=== PATIENT | female | born 1980 | race Caucasian/White ===

== ENCOUNTER 2021-06-26 15:15 | Inpatient (IN) | payer MEDICAID, SELFPAY ==
--- NOTE | 2021-06-26 15:25 | CT_ITS ---
WS: [id number] CT ABDOMEN PELVIS TECHNIQUE: Contrast-enhanced CT of the abdomen and pelvis with coronal and sagittal reformatted image s. CLINICAL INFORMATION: eval pelvic infection COMPARISON: CT May 22, 2018 DLP: 615.[address] scans at [facility] use at least one of these dose optimization techniques: automated e xposure control; mA and/or kV adjustment per patient size (includes targeted exams where dose is matc hed to clinical indication); or iterative reconstruction. FINDINGS: Diffuse fatty infiltration of the liver. Prior cholecystectomy. Normal portal vein and splenic vein. Normal pancreatic parenchymal enhancement. Normal spleen. Normal GE junction. Small amount of subpleu ral nodularity in the lower lobes bilaterally. Adrenal glands are normal. Normal renal parenchymal en hancement. Renal parenchymal scarring. No hydronephrosis. Aortic calcification. Urine distended bladder. Tubal ligation clips. Normal sigmoid colon. No evidence of high-grade small or large bowel obstruction. Chronic bilateral spondylolysis L5-S1. No significant anterolisthesis. CT/CT abdomen pelvis w con* [id number] IMPRESSION: 1. Prior postoperative changes cholecystectomy. 2. No hydronephrosis in either kidney. Bilateral renal parenchymal scarring. 3. Urine distended bladder. 4. Prior tubal ligation clips. 5. Normal sigmoid colon. 6. Slight micronodularity in the lower lobes laterally likely inflammatory. 7. No acute abdominal or pelvic findings.
[2021-06-26 15:28] VITALS: BP 132/99; PULSE 128; RESP 17; TEMP 36.5; O2SAT 93; BMI 12.0
[2021-06-26 15:35] LABS: Glucose Point of Care > 600 mg/dL (70-110)
[2021-06-26] MEDS: iohexol 300 mg/mL 100 mL Btl IV (15:58)
[2021-06-26] MEDS: lactated ringers 1,000 ML 999 ML IV ×3 (16:42→18:04)
[2021-06-26] MEDS: phosphorus 250 mg Tablet PO ×2 (16:43)
[2021-06-26 16:50] LABS: ABG PCO2 44.8 mmHg (35-45); ABG PH Result 7.41 (7.35-7.45); Alveolar-Arterial Oxygen Gradi 4.1 mmHg (5-10); Arterial Blood Gas Hematocrit 55.1 % (37-47); Base Excess ABG 3.1 mmol/L (-2.0-2.0); Blood Gas Operator Identificat ED; Blood Gas Sample Site Brachial, right; Blood Gas Sample Type Arterial; Carboxyhemoglobin 8.8 %THgb (0.4-20.1); HCO3 ABG 28.5 mmol/L (22-26); HGB O2 Sat 85.8 % (95-100); Ionized Calcium Level - ABG 1.2 mmol/L (1.1-1.4); Methemoglobin 0.5 % (0.4-1.5); Oxygen Device ROOM AIR; Oxygen Saturation ABG 94.6; PO2 ABG 62.2 mmHg (80.0-100.0); Potassium Level - ABG 4.1 mmol/L (3.5-5.0)
[2021-06-26 17:12] LABS: Basophils # 0.2 10^3/uL (0.0-0.1); Basophils % 1.1 %; Eosinophils % 0.2 %; Hematocrit 55.1 % (37.0-47.0); Hemoglobin 18.6 g/dL (11.5-15.3); Lymphocytes # 2.1 10^3/uL (0.8-4.8); Lymphocytes % 14.7 %; Mean Corpuscular HGB Conc 33.8 g/dL (30.0-36.0); Mean Corpuscular Hemoglobin 28.4 pg (28.0-34.0); Mean Corpuscular Volume 84.3 fl (81-99); Mean Platelet Volume 10.5 fL (7.4-10.4); Monocytes # 0.8 10^3/uL (0.2-0.9); Monocytes % 5.5 %; Neutrophils # 11.13 10^3/uL (1.8-7.7); Neutrophils % 77.9 %; Nucleated Red Blood Cells % 0 %; Platelet Count 248 10^3/cmm (130-400); Red Blood Count 6.54 10^6/uL (4.1-5.3); Red Cell Distribution Width 14.6 % (12.1-15.1); White Blood Count 14.3 10^3/uL (4.0-10.0)
[2021-06-26 17:28] LABS: Alanine Aminotransferase 6 U/L (0-33); Albumin Level 2.5 g/dL (3.5-5.2); Alkaline Phosphatase 204 IU/L (35-105); Anion Gap 17.2 (5-19); Aspartate Amino Transferase 7 U/L (0-32); Blood Urea Nitrogen 15 mg/dL (6-20); Calcium 8.2 mg/dL (8.5-10.5); Carbon Dioxide 25 mmol/L (22-29); Chloride 87 mmol/L (98-107); Glomerular Filtration Rate 79.4 mL/min (90-130); Magnesium 1.8 mg/dL (1.7-2.3); Osmolality Calculated 287 mOsm/kg (285-295); Phosphorus 3.1 mg/dL (2.5-4.5); Potassium 4.2 mmol/L (3.5-5.1); Sodium 125 mmol/L (136-145); Total Bilirubin 0.3 mg/dL (0.15-1.2); Total Protein 5.5 g/dL (6.6-8.7)
[2021-06-26 17:31] LABS: Glucose 577 mg/dL (65-115); HCG, Serum Qual Negative (Negative); Ketone (Acetest) Serum Negative (Negative)
--- NOTE | 2021-06-26 17:46 | XRR_ITS ---
PROCEDURE INFORMATION: Exam: XR Chest Exam date and time: 06/26/2021 5:46 PM Age: 41 years old Clinical indication: Shortness of breath; Additional info: Dyspnea TECHNIQUE: Imaging protocol: XR of the chest. Views: 1 view. COMPARISON: CR Chest 1 [place] [id number] 05/22/2018 5:59 PM FINDINGS: Lungs: The lungs are clear and hyperinflated. Changes of emphysema. No consolidation. Pleural spaces: Unremarkable. No pleural effusion. No pneumothorax. Heart/Mediastinum: Unremarkable. No cardiomegaly. Bones/joints: Unremarkable. XR/XR chest 1V portable [id number] IMPRESSION: No acute findings.
[2021-06-26 17:58] LABS: Glucose Point of Care 404 mg/dL (70-110)
--- NOTE | 2021-06-26 18:40 | XRR_ITS ---
PROCEDURE INFORMATION: Exam: XR Chest Exam date and time: 06/26/2021 6:40 PM Age: 41 years old Clinical indication: Shortness of breath; Additional info: Dyspnea, o2 sats in 50s TECHNIQUE: Imaging protocol: XR of the chest. Views: 1 view. COMPARISON: CR (CHEST, ) 06/26/2021 6:00 PM FINDINGS: Lungs: Changes of emphysema. The lungs remain clear. Pleural spaces: Unremarkable. No pleural effusion. No pneumothorax. Heart/Mediastinum: Unremarkable. No cardiomegaly. Bones/joints: Unremarkable. XR/XR chest 1V portable [id number] IMPRESSION: No acute findings.
--- NOTE | 2021-06-26 18:59 | ED_ITS ---
HPI - General Adult General: Chief complaint: ER Hold Stated complaint: DEHYDRATION/ EMACIATION/ HIGH BS Time Seen by Provider: 06/26/21 15:17 History of Present Illness: HPI narrative: Patient is a 41-year-old female with history of depression, type 2 diabetes who presents the emergency room for concerns of dehydration and inability to care for self. Per EMS, patient was found at home with complaints of weakness and unable to get up. Patient has not eaten in the last week. Patient tells me that she is feeling very depressed and does not want to eat. Patient denies any suicidal ideation or homicidal ideation denies any active voices hearing. Patient has also not been taking her insulins. Denies any nausea/vomiting, fever/chills, diarrhea, melena hematochezia, abdominal complaints or complaints at this time Onset: chronic Duration:ongoing Location:home Severity:severe Review of Systems Narrative: Constitutional: No fever, no chills. +thin, cachetic HEENT: No vision changes CV: No chest pain, no palpitations PULM: no cough, no dyspnea. GI: No abdominal pain, no N/V/D. : No dysuria MSKEL: No muscle pain SKIN: No new rashes, no lesions. NEURO: No headache, no focal weakness. HEME: No visible bruises PSYCH: Normal mood PFSH ED PFSH: Medical History (Updated 06/28/21 @ 15:56 by Pacheco Shelley MD) Aftercare following surgery of the genitourinary system Patient is a status post diagnostic laparoscopy with lysis of adhesions and appendectomy 2 weeks ago. No complications. Patient was counseled regarding pathology report showing acute appendicitis. Follow-up in 4 weeks Breast lump on right side at 9 o'clock position C. difficile colitis MRSA (methicillin resistant staph aureus) culture positive Patient denies medical problems Perinephric abscess History of perinephric and retroperitoneal abscess with yeast in 2018, required percutaneous drainage and had complicated hospital course with respiratory failure, gram-negative pneumonia, thoracentesis, BiPAP therapy requirement, intolerance of oral intake, PEG tube placement, intolerance of tube feeds Secondary amenorrhea 39-year-old female with secondary amenorrhea. Progestin challenge test described Patient referred to the progestin challenge test she had a withdrawal bleeding from 05/07/2019 to 05/13/2019. Trichotillomania Surgical History (Updated 06/27/21 @ 02:24 by Olga Wang MD) deliv NOS-unsp 1999 History of cholecystectomy 2011 History of tubal ligation 2000 S/P appendectomy S/P laparoscopy 05/20/2019- Diagnostic Laparoscopy, Lysis of Adhesions performed by Dr. Wendi combs at Appendectomy performed by Dr. Robledo on 05/20/2019 Family History Grandmother Diabetes MATERNAL Cancer paternal Grandfather Heart disease maternal Cancer paternal Family/Other Breast cancer Paternal Aunt Social History Smoking and tobacco status: current every day smoker cigarettes Packs smoked per day: 1 Years cigarettes smoked: 28 Alcohol intake: never Additional social history: Well balanced diet Physical Exam Narrative: EXAM NARRATIVE: Head: Atraumatic Eyes: PERRL, conjunctiva without injection ENT: Mucous membrane dry NECK: Supple, ROM intact LUNGS: LCTAB, no crackles/rhonchi CV: Sinus tachycardia ABDOMEN: Soft, nontender in all quadrants EXTREMITY: Normal ROM SKIN: Sacral decubitus erythema and skin atrophy NEURO: Awake and alert, no focal motor deficits PSYCH: Normal mood and affect Course Vital Signs: Vital signs: Vital Signs Temperature 99.0 F 07/01/21 20:00 Pulse Rate 105 H 07/01/21 20:00 Respiratory Rate 19 H 07/01/21 20:00 Blood Pressure 102/70 07/01/21 20:00 Pulse Oximetry 97 07/01/21 20:00 MDM - General Adult MDM Narrative: Medical decision making narrative: Patient is a 41-year-old female history of type 2 diabetes, depression presenting to the emergency room with no p.o. intake in the last 2 weeks. Patient on exam appears to be dry, noted to be tachycardic to the 120s. Patient received 500 mg of thiamine and 500 mg of phosphorus. Patient received 4 L of LR with significant improvement in symptoms. She is noted to be hemoconcentrated at 18.8. Patient is noted to have decubitus changes in the gluteal areas b/l. CT abdomen pelvis not show any signs of acute abscess or acute pelvic infection. Received 4 L of LR in the emergency room. Shortly after, patient noted to have mild hypoxemia and tachycardia. Patient was observed in the emergency room remains continues to have mild hypoxemia. Decision was made to order CT scan for evaluation of blood clot given chronic immobility. CT negative for any PE. Patient improved without any intervention for the next 2 hours. Patient is now off oxygen. WBC noted to have white count 14.5. Glucose improved while observed in the emergency room. Covid PCR pending. CT is negative for any acute findings. Patient still unable to ambulate and get out of bed. Patient will be admitted to hospital for rehydration. Possible PNA on CTA, treated with ceftriaxone and aizthromycin. Disposition: Admission Lab Data: Labs: Lab Results 08/27/20 08/27/20 08/27/20 16:50 16:50 16:50 WBC RBC Hgb Hct MCV MCH MCHC RDW Plt Count MPV Neut % (Auto) Lymph % (Auto) [place] % (Auto) Eos % (Auto) Baso % (Auto) Neut # (Auto) Lymph # (Auto) [place] # (Auto) Eos # (Auto) Baso # (Auto) Nucleated RBC % (a uto) Nucleated RBCs # Specimen Type Sample Site ABG pH ABG pCO2 ABG pO2 ABG HCO3 ABG O2 Saturation ABG Base Excess Kaushik Test A-a O2 Gradient Hematocrit Hgb O2 Saturation Carboxyhemoglobin Methemoglobin Total Hemoglobin Sodium Potassium Glucose Ionized Calcium O2 Delivery Device FiO2 Grades 1 Through 6 Teacher ID Chloride Carbon Dioxide Anion Gap BUN Creatinine GFR Calculation POC Glucose Estimat Average Gl ucose Hemoglobin A1c Calculated Osmolal ity Calcium Phosphorus Magnesium Total Bilirubin AST ALT Alkaline Phosphata se NT-Pro-B Natriuret Pep Total Protein Albumin Globulin TSH Free T4 HCG, Qual Urine Color Urine Appearance Urine pH Ur Specific Gravit y Urine Protein Urine Glucose (UA) Urine Ketones Urine Blood Urine Nitrate Urine Bilirubin Urine Urobilinogen Ur Leukocyte Sonia ase Urine RBC Urine WBC Ur Squamous Epith Cells Amorphous Sediment Urine Bacteria Fine Granular Cast s Urine Mucus Serum Ketones RPR Cancelled Coronavirus 229E ( PCR) Hepatitis A IgM Ab Cancelled Hep Bs Antigen Cancelled Hep Bs Antibody Cancelled Hep B Core Total A b Cancelled Hepatitis C Antibo dy Cancelled HIV 1&2 Ab & HIV 1 Ag Cancelled HIV 1&2 Antibody Cancelled SARS-CoV-2 (PCR) 06/26/21 06/26/21 06/26/21 03:50 15:33 16:40 WBC RBC Hgb Hct MCV MCH MCHC RDW Plt Count MPV Neut % (Auto) Lymph % (Auto) [place] % (Auto) Eos % (Auto) Baso % (Auto) Neut # (Auto) Lymph # (Auto) [place] # (Auto) Eos # (Auto) Baso # (Auto) Nucleated RBC % (a uto) Nucleated RBCs # Specimen Type Arterial Sample Site Brachial, right ABG pH 7.41 (7.35-7.45) ABG pCO2 44.8 mmHg mmHg (35-45) ABG pO2 62.2 mmHg L mmHg (80.0-100.0) ABG HCO3 28.5 mmol/L H mmo l/L (22-26) ABG O2 Saturation 94.6 ABG Base Excess 3.1 mmol/L H mmol /L (-2.0-2.0) Kaushik Test N/a A-a O2 Gradient 4.1 mmHg L mmHg (5-10) Hematocrit 55.1 % H % (37-47) Hgb O2 Saturation 85.8 % L % (95-100) Carboxyhemoglobin 8.8 %THgb %THgb (0.4-20.1) Methemoglobin 0.5 % % (0.4-1.5) Total Hemoglobin 18.0 g/dL H g/dL (12-16) Sodium 125.0 mmol/L L mm ol/L (131-143) Potassium 4.1 mmol/L mmol/L (3.5-5.0) Glucose 523.0 mg/dL H mg/ dL (70-115) Ionized Calcium 1.2 mmol/L mmol/L (1.1-1.4) O2 Delivery Device Room air FiO2 21.0 % % Grades 1 Through 6 Teacher ID Ed Chloride Carbon Dioxide Anion Gap BUN Creatinine GFR Calculation POC Glucose > 600 mg/dL H* mg /dL (70-110) Estimat Average Gl ucose Hemoglobin A1c Calculated Osmolal ity Calcium Phosphorus Magnesium Total Bilirubin AST ALT Alkaline Phosphata se NT-Pro-B Natriuret Pep Total Protein Albumin Globulin TSH Free T4 HCG, Qual Urine Color Yellow (Yellow) Urine Appearance Clear (CLEAR) Urine pH 5 (5-7) Ur Specific Gravit y 1.005 (1.005-1.030) Urine Protein 2+ H (Negative) Urine Glucose (UA) 4+ H (Normal) Urine Ketones Negative (Negative) Urine Blood Neg (Negative) Urine Nitrate Negative (Negative) Urine Bilirubin Neg (Negative) Urine Urobilinogen Neg mg/dL mg/dL (Negative) Ur Leukocyte Sonia ase Negative (Negative) Urine RBC 0-4 /hpf H /hpf (0-2) Urine WBC Rare /hpf /hpf (0-5) Ur Squamous Epith Cells Rare /hpf /hpf (0-5) Amorphous Sediment Not Reportable Urine Bacteria None /hpf /hpf (NONE) Fine Granular Cast s 0-4 /lpf H /lpf Urine Mucus Trace /hpf /hpf Serum Ketones RPR Coronavirus 229E ( PCR) Hepatitis A IgM Ab Hep Bs Antigen Hep Bs Antibody Hep B Core Total A b Hepatitis C Antibo dy HIV 1&2 Ab & HIV 1 Ag HIV 1&2 Antibody SARS-CoV-2 (PCR) 06/26/21 06/26/21 06/26/21 16:50 16:50 16:50 WBC 14.3 10^3/uL H 10 ^3/uL (4.0-10.0) RBC 6.54 10^6/uL H 10 ^6/uL (4.1-5.3) Hgb 18.6 g/dL H g/dL (11.5-15.3) Hct 55.1 % H % (37.0-47.0) MCV 84.3 fl fl (81-99) MCH 28.4 pg pg (28.0-34.0) MCHC 33.8 g/dL g/dL (30.0-36.0) RDW 14.6 % % (12.1-15.1) Plt Count 248 10^3/cmm 10^3 /cmm (130-400) MPV 10.5 fL H fL (7.4-10.4) Neut % (Auto) 77.9 % % Lymph % (Auto) 14.7 % % [place] % (Auto) 5.5 % % Eos % (Auto) 0.2 % % Baso % (Auto) 1.1 % % Neut # (Auto) 11.13 10^3/uL H 1 0^3/uL (1.8-7.7) Lymph # (Auto) 2.1 10^3/uL 10^3/ uL (0.8-4.8) [place] # (Auto) 0.8 10^3/uL 10^3/ uL (0.2-0.9) Eos # (Auto) 0.0 10^3/uL 10^3/ uL (0.0-0.8) Baso # (Auto) 0.2 10^3/uL H 10^ 3/uL (0.0-0.1) Nucleated RBC % (a uto) 0 % % Nucleated RBCs # 0.0 /100WBC /100W BC Specimen Type Sample Site ABG pH ABG pCO2 ABG pO2 ABG HCO3 ABG O2 Saturation ABG Base Excess Kaushik Test A-a O2 Gradient Hematocrit Hgb O2 Saturation Carboxyhemoglobin Methemoglobin Total Hemoglobin Sodium 125 mmol/L L mmol /L (136-145) Potassium 4.2 mmol/L mmol/L (3.5-5.1) Glucose 577 mg/dL H* mg/d L (65-115) Ionized Calcium O2 Delivery Device FiO2 Grades 1 Through 6 Teacher ID Chloride 87 mmol/L L mmol/ L (98-107) Carbon Dioxide 25 mmol/L mmol/L (22-29) Anion Gap 17.2 (5-19) BUN 15 mg/dL mg/dL (6-20) Creatinine 0.8 mg/dL mg/dL (0.5-0.9) GFR Calculation 79.4 mL/min L mL/ min (90-130) POC Glucose Estimat Average Gl ucose Hemoglobin A1c Calculated Osmolal ity 287 mOsm/kg mOsm/ kg (285-295) Calcium 8.2 mg/dL L mg/dL (8.5-10.5) Phosphorus 3.1 mg/dL mg/dL (2.5-4.5) Magnesium 1.8 mg/dL mg/dL (1.7-2.3) Total Bilirubin 0.3 mg/dL mg/dL (0.15-1.2) AST 7 U/L U/L (0-32) ALT 6 U/L U/L (0-33) Alkaline Phosphata se 204 IU/L H IU/L (35-105) NT-Pro-B Natriuret Pep Total Protein 5.5 g/dL L g/dL (6.6-8.7) Albumin 2.5 g/dL L g/dL (3.5-5.2) Globulin 3.0 g/dL g/dL (1.3-4.6) TSH Free T4 HCG, Qual Urine Color Urine Appearance Urine pH Ur Specific Gravit y Urine Protein Urine Glucose (UA) Urine Ketones Urine Blood Urine Nitrate Urine Bilirubin Urine Urobilinogen Ur Leukocyte Sonia ase Urine RBC Urine WBC Ur Squamous Epith Cells Amorphous Sediment Urine Bacteria Fine Granular Cast s Urine Mucus Serum Ketones Negative (Negative) RPR Coronavirus 229E ( PCR) Hepatitis A IgM Ab Hep Bs Antigen Hep Bs Antibody Hep B Core Total A b Hepatitis C Antibo dy HIV 1&2 Ab & HIV 1 Ag HIV 1&2 Antibody SARS-CoV-2 (PCR) 06/26/21 06/26/21 06/26/21 16:50 16:50 16:50 WBC RBC Hgb Hct MCV MCH MCHC RDW Plt Count MPV Neut % (Auto) Lymph % (Auto) [place] % (Auto) Eos % (Auto) Baso % (Auto) Neut # (Auto) Lymph # (Auto) [place] # (Auto) Eos # (Auto) Baso # (Auto) Nucleated RBC % (a uto) Nucleated RBCs # Specimen Type Sample Site ABG pH ABG pCO2 ABG pO2 ABG HCO3 ABG O2 Saturation ABG Base Excess Kaushik Test A-a O2 Gradient Hematocrit Hgb O2 Saturation Carboxyhemoglobin Methemoglobin Total Hemoglobin Sodium Potassium Glucose Ionized Calcium O2 Delivery Device FiO2 Grades 1 Through 6 Teacher ID Chloride Carbon Dioxide Anion Gap BUN Creatinine GFR Calculation POC Glucose Estimat Average Gl ucose Hemoglobin A1c Calculated Osmolal ity Calcium Phosphorus Magnesium Total Bilirubin AST ALT Alkaline Phosphata se NT-Pro-B Natriuret Pep 2834 pg/mL H pg/m L (0-125) Total Protein Albumin Globulin TSH 1.84 uIU/mL uIU/m L (0.27-4.20) Free T4 1.17 ng/dL ng/dL (0.82-1.77) HCG, Qual Negative (Negative) Urine Color Urine Appearance Urine pH Ur Specific Gravit y Urine Protein Urine Glucose (UA) Urine Ketones Urine Blood Urine Nitrate Urine Bilirubin Urine Urobilinogen Ur Leukocyte Sonia ase Urine RBC Urine WBC Ur Squamous Epith Cells Amorphous Sediment Urine Bacteria Fine Granular Cast s Urine Mucus Serum Ketones RPR Coronavirus 229E ( PCR) Hepatitis A IgM Ab Hep Bs Antigen Hep Bs Antibody Hep B Core Total A b Hepatitis C Antibo dy HIV 1&2 Ab & HIV 1 Ag HIV 1&2 Antibody SARS-CoV-2 (PCR) 06/26/21 06/26/21 06/26/21 16:50 16:50 16:50 WBC RBC Hgb Hct MCV MCH MCHC RDW Plt Count MPV Neut % (Auto) Lymph % (Auto) [place] % (Auto) Eos % (Auto) Baso % (Auto) Neut # (Auto) Lymph # (Auto) [place] # (Auto) Eos # (Auto) Baso # (Auto) Nucleated RBC % (a uto) Nucleated RBCs # Specimen Type Sample Site ABG pH ABG pCO2 ABG pO2 ABG HCO3 ABG O2 Saturation ABG Base Excess Kaushik Test A-a O2 Gradient Hematocrit Hgb O2 Saturation Carboxyhemoglobin Methemoglobin Total Hemoglobin Sodium Potassium Glucose Ionized Calcium O2 Delivery Device FiO2 Grades 1 Through 6 Teacher ID Chloride Carbon Dioxide Anion Gap BUN Creatinine GFR Calculation POC Glucose Estimat Average Gl ucose Hemoglobin A1c Calculated Osmolal ity Calcium Phosphorus Magnesium Total Bilirubin AST ALT Alkaline Phosphata se NT-Pro-B Natriuret Pep Total Protein Albumin Globulin TSH Free T4 HCG, Qual Urine Color Urine Appearance Urine pH Ur Specific Gravit y Urine Protein Urine Glucose (UA) Urine Ketones Urine Blood Urine Nitrate Urine Bilirubin Urine Urobilinogen Ur Leukocyte Sonia ase Urine RBC Urine WBC Ur Squamous Epith Cells Amorphous Sediment Urine Bacteria Fine Granular Cast s Urine Mucus Serum Ketones RPR Nonreactive (Nonreactive) Coronavirus 229E ( PCR) Hepatitis A IgM Ab Non-reactive (Nonreactive) Hep Bs Antigen Non-reactive (Nonreactive) Hep Bs Antibody 3.5 L (11.5-1000) Hep B Core Total A b Non-reactive (Nonreactive) Hepatitis C Antibo dy Non-reactive (Nonreactive) HIV 1&2 Ab & HIV 1 Ag Non-reactive (Non-Reactiv) HIV 1&2 Antibody Non-reactive (Non-Reactiv) SARS-CoV-2 (PCR) 06/26/21 06/26/21 06/26/21 17:56 20:01 21:34 WBC 14.5 10^3/uL H 10 ^3/uL (4.0-10.0) RBC 5.82 10^6/uL H 10 ^6/uL (4.1-5.3) Hgb 16.5 g/dL H g/dL (11.5-15.3) Hct 49.3 % H % (37.0-47.0) MCV 84.7 fl fl (81-99) MCH 28.4 pg pg (28.0-34.0) MCHC 33.5 g/dL g/dL (30.0-36.0) RDW 14.6 % % (12.1-15.1) Plt Count 229 10^3/cmm 10^3 /cmm (130-400) MPV 9.8 fL fL (7.4-10.4) Neut % (Auto) 77.4 % % Lymph % (Auto) 17.6 % % [place] % (Auto) 3.8 % % Eos % (Auto) 0.1 % % Baso % (Auto) 0.6 % % Neut # (Auto) 11.19 10^3/uL H 1 0^3/uL (1.8-7.7) Lymph # (Auto) 2.6 10^3/uL 10^3/ uL (0.8-4.8) [place] # (Auto) 0.6 10^3/uL 10^3/ uL (0.2-0.9) Eos # (Auto) 0.0 10^3/uL 10^3/ uL (0.0-0.8) Baso # (Auto) 0.1 10^3/uL 10^3/ uL (0.0-0.1) Nucleated RBC % (a uto) 0 % % Nucleated RBCs # 0.0 /100WBC /100W BC Specimen Type Sample Site ABG pH ABG pCO2 ABG pO2 ABG HCO3 ABG O2 Saturation ABG Base Excess Kaushik Test A-a O2 Gradient Hematocrit Hgb O2 Saturation Carboxyhemoglobin Methemoglobin Total Hemoglobin Sodium Potassium Glucose Ionized Calcium O2 Delivery Device FiO2 Grades 1 Through 6 Teacher ID Chloride Carbon Dioxide Anion Gap BUN Creatinine GFR Calculation POC Glucose 404 mg/dL H mg/dL 387 mg/dL H mg/dL (70-110) (70-110) Estimat Average Gl ucose Hemoglobin A1c Calculated Osmolal ity Calcium Phosphorus Magnesium Total Bilirubin AST ALT Alkaline Phosphata se NT-Pro-B Natriuret Pep Total Protein Albumin Globulin TSH Free T4 HCG, Qual Urine Color Urine Appearance Urine pH Ur Specific Gravit y Urine Protein Urine Glucose (UA) Urine Ketones Urine Blood Urine Nitrate Urine Bilirubin Urine Urobilinogen Ur Leukocyte Sonia ase Urine RBC Urine WBC Ur Squamous Epith Cells Amorphous Sediment Urine Bacteria Fine Granular Cast s Urine Mucus Serum Ketones RPR Coronavirus 229E ( PCR) Hepatitis A IgM Ab Hep Bs Antigen Hep Bs Antibody Hep B Core Total A b Hepatitis C Antibo dy HIV 1&2 Ab & HIV 1 Ag HIV 1&2 Antibody SARS-CoV-2 (PCR) 06/26/21 06/26/21 06/26/21 21:34 21:34 21:55 WBC RBC Hgb Hct MCV MCH MCHC RDW Plt Count MPV Neut % (Auto) Lymph % (Auto) [place] % (Auto) Eos % (Auto) Baso % (Auto) Neut # (Auto) Lymph # (Auto) [place] # (Auto) Eos # (Auto) Baso # (Auto) Nucleated RBC % (a uto) Nucleated RBCs # Specimen Type Sample Site ABG pH ABG pCO2 ABG pO2 ABG HCO3 ABG O2 Saturation ABG Base Excess Kaushik Test A-a O2 Gradient Hematocrit Hgb O2 Saturation Carboxyhemoglobin Methemoglobin Total Hemoglobin Sodium 133 mmol/L L mmol /L (136-145) Potassium 3.4 mmol/L L mmol /L (3.5-5.1) Glucose 226 mg/dL H mg/dL (65-115) Ionized Calcium O2 Delivery Device FiO2 Grades 1 Through 6 Teacher ID Chloride 95 mmol/L L mmol/ L (98-107) Carbon Dioxide 28 mmol/L mmol/L (22-29) Anion Gap 13.4 (5-19) BUN 11 mg/dL mg/dL (6-20) Creatinine 0.6 mg/dL mg/dL (0.5-0.9) GFR Calculation 110.7 mL/min mL/m in (90-130) POC Glucose Estimat Average Gl ucose 510 Hemoglobin A1c 19.4 % H % (4.0-6.0) Calculated Osmolal ity 282 mOsm/kg L mOs m/kg (285-295) Calcium 7.8 mg/dL L mg/dL (8.5-10.5) Phosphorus Magnesium Total Bilirubin AST ALT Alkaline Phosphata se NT-Pro-B Natriuret Pep Total Protein Albumin Globulin TSH Free T4 HCG, Qual Urine Color Urine Appearance Urine pH Ur Specific Gravit y Urine Protein Urine Glucose (UA) Urine Ketones Urine Blood Urine Nitrate Urine Bilirubin Urine Urobilinogen Ur Leukocyte Sonia ase Urine RBC Urine WBC Ur Squamous Epith Cells Amorphous Sediment Urine Bacteria Fine Granular Cast s Urine Mucus Serum Ketones RPR Coronavirus 229E ( PCR) Not detected (NOT DETECT) Hepatitis A IgM Ab Hep Bs Antigen Hep Bs Antibody Hep B Core Total A b Hepatitis C Antibo dy HIV 1&2 Ab & HIV 1 Ag HIV 1&2 Antibody SARS-CoV-2 (PCR) Not detected (NOT DETECT) Imaging Data^: Other Imaging: Radiologist's impression: [id number], [place] [address]QJ Scan ReportSigned Patient: Ralph Ace #: [id number]: [id number]#:[id number]/Sex: 41 / FADM Date: 06/26/21Loc: ERRoom/Bed:Attending Dr: Ordering Provider/Ordering MD: Rochelle Harris MD Date of Service: 06/26/21 Procedure(s): CT angio chest PE protcl [id number] Accession Number(s): [id number] Report Number: [id number] PROCEDURE INFORMATION: Exam: CTA Chest With Contrast Exam date and time: 06/26/2021 7:13 PM Age: 41 years old Clinical indication: Other: Weakness; Prior surgery; Surgery type: Tubal, appy, gb; Additional info: Eval pe TECHNIQUE: Imaging protocol: Computed tomographic angiography of the chest with contrast. 3D rendering (Not supervised by radiologist): MIP and/or 3D reconstructed images were created by the technologist. Radiation optimization: All CT scans at this facility use at least one of these dose optimization techniques: automated exposure control; mA and/or kV adjustment per patient size (includes targeted exams where dose is matched to clinical indication); or iterative reconstruction. Contrast material: OMNI 350; Contrast volume: 65 ml; Contrast route: INTRAVENOUS (IV); COMPARISON: CR (CHEST, ) 06/26/2021 6:45 PM RADIATION DOSE METRICS: Total DLP (mGy-cm): 312.3 FINDINGS: Pulmonary arteries: Normal. No pulmonary emboli. Aorta: Unremarkable. No aortic aneurysm. No aortic dissection. Veins: Retrograde flow of contrast down the inferior vena cava which creates streak artifact through the kidneys. Lungs: Subtle centrilobular opacities diffusely scattered throughout both lungs. Multiple scattered areas of tree-in-bud type opacities in both lungs. Small ground-glass opacities in the lower lobes. Pleural spaces: Unremarkable. No pneumothorax. No pleural effusion. Heart: Unremarkable. No cardiomegaly. No pericardial effusion. Lymph nodes: Unremarkable. No enlarged lymph nodes. Gallbladder and bile ducts: Cholecystectomy. Bones/joints: Mild thoracic curvature. No fracture. Soft tissues: Unremarkable. CT/CT angio chest PE protcl [id number] IMPRESSION: 1. No evidence for pulmonary embolus. 2. Mixed centrilobular ground-glass nodules and tree-in-bud opacities throughout both lungs. If patient is a smoker, this could represent desquamative interstitial pneumonia. Endobronchial infection is also a consideration. Dictated By:Merlin Langston By:Merlin Langston Date/Time:06/26/21/ [address] [id number] ReportSigned Patient: Ralph Ace #: [id number]: [id number]#:[id number]/Sex: 41 / FADM Date: 06/26/21Loc: ERRoom/Bed:Attending Dr: Ordering Provider/Ordering MD: Rochelle Harris MD Date of Service: 06/26/21 Procedure(s): XR chest 1V portable [id number] Accession Number(s): [id number] Report Number: [id number] PROCEDURE INFORMATION: Exam: XR Chest Exam date and time: 06/26/2021 6:40 PM Age: 41 years old Clinical indication: Shortness of breath; Additional info: Dyspnea, o2 sats in 50s TECHNIQUE: Imaging protocol: XR of the chest. Views: 1 view. COMPARISON: CR (CHEST, ) 06/26/2021 6:00 PM FINDINGS: Lungs: Changes of emphysema. The lungs remain clear. Pleural spaces: Unremarkable. No pleural effusion. No pneumothorax. Heart/Mediastinum: Unremarkable. No cardiomegaly. Bones/joints: Unremarkable. XR/XR chest 1V portable [id number] IMPRESSION: No acute findings. Dictated By:Merlin Langston By:Merlin Langston Date/Time:06/26/21D/ 39 Discharge Plan Discharge Patient Disposition: Admitted As Inpatient Admit Provider: Olga Wang Clinical Impression: Dehydration, Generalized weakness, Hyperglycemia, Adult failure to thrive Depression Qualifiers: Depression Type: major depressive disorder Major depression recurrence: recurrent Active/Remission status: currently active Major depression episode severity: severe Psychotic features: without psychotic features Qualified Code(s): F33.2 - Major depressive disorder, recurrent severe without psychotic features Condition: Stable 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 of Care Code 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
--- NOTE | 2021-06-26 19:13 | CTR_ITS ---
PROCEDURE INFORMATION: Exam: CTA Chest With Contrast Exam date and time: 06/26/2021 7:13 PM Age: 41 years old Clinical indication: Other: Weakness; Prior surgery; Surgery type: Tubal, appy, gb; Additional info: Eval pe TECHNIQUE: Imaging protocol: Computed tomographic angiography of the chest with contrast. 3D rendering (Not supervised by radiologist): MIP and/or 3D reconstructed images were created by the technologist. Radiation optimization: All CT scans at this facility use at least one of these dose optimization techniques: automated exposure control; mA and/or kV adjustment per patient size (includes targeted exams where dose is matched to clinical indication); or iterative reconstruction. Contrast material: OMNI 350; Contrast volume: 65 ml; Contrast route: INTRAVENOUS (IV); COMPARISON: CR (CHEST, ) 06/26/2021 6:45 PM RADIATION DOSE METRICS: Total DLP (mGy-cm): 312.3 FINDINGS: Pulmonary arteries: Normal. No pulmonary emboli. Aorta: Unremarkable. No aortic aneurysm. No aortic dissection. Veins: Retrograde flow of contrast down the inferior vena cava which creates streak artifact through the kidneys. Lungs: Subtle centrilobular opacities diffusely scattered throughout both lungs. Multiple scattered areas of tree-in-bud type opacities in both lungs. Small ground-glass opacities in the lower lobes. Pleural spaces: Unremarkable. No pneumothorax. No pleural effusion. Heart: Unremarkable. No cardiomegaly. No pericardial effusion. Lymph nodes: Unremarkable. No enlarged lymph nodes. Gallbladder and bile ducts: Cholecystectomy. Bones/joints: Mild thoracic curvature. No fracture. Soft tissues: Unremarkable. CT/CT angio chest PE protcl [id number] IMPRESSION: 1. No evidence for pulmonary embolus. 2. Mixed centrilobular ground-glass nodules and tree-in-bud opacities throughout both lungs. If patient is a smoker, this could represent desquamative interstitial pneumonia. Endobronchial infection is also a consideration.
[2021-06-26 19:39] LABS: Free T4 Free Thyroxine 1.17 ng/dL (0.82-1.77); Thyroid Stimulating Hormone 1.84 uIU/mL (0.27-4.20)
[2021-06-26 20:05] LABS: Glucose Point of Care 387 mg/dL (70-110)
[2021-06-26] MEDS: FUROsemide 10 mg/mL SDV 4mL 40 MG IVP (20:06)
[2021-06-26] MEDS: metoprolol tartrate 1 mg/1 mL SDV 5 mL 5 MG IVP (20:06)
[2021-06-26] MEDS: insulin lispro 100 unit/1 mL SUBCUT (20:17)
[2021-06-26 20:19] LABS: NT Pro B Type Natriuretic Pept 2834 pg/mL (0-125)
[2021-06-26 20:24] VITALS: BP 120/99; PULSE 126; RESP 16; TEMP 36.7; O2SAT 98
[2021-06-26] MEDS: iohexol 350 mg/mL 100 mL Btl IV (20:47)
[2021-06-26 21:35] VITALS: BP 113/77; PULSE 96; O2SAT 92
[2021-06-26 21:40] LABS: Basophils # 0.1 10^3/uL (0.0-0.1); Basophils % 0.6 %; Eosinophils % 0.1 %; Hematocrit 49.3 % (37.0-47.0); Hemoglobin 16.5 g/dL (11.5-15.3); Lymphocytes # 2.6 10^3/uL (0.8-4.8); Lymphocytes % 17.6 %; Mean Corpuscular HGB Conc 33.5 g/dL (30.0-36.0); Mean Corpuscular Hemoglobin 28.4 pg (28.0-34.0); Mean Corpuscular Volume 84.7 fl (81-99); Mean Platelet Volume 9.8 fL (7.4-10.4); Monocytes # 0.6 10^3/uL (0.2-0.9); Monocytes % 3.8 %; Neutrophils # 11.19 10^3/uL (1.8-7.7); Neutrophils % 77.4 %; Nucleated Red Blood Cells % 0 %; Platelet Count 229 10^3/cmm (130-400); Red Blood Count 5.82 10^6/uL (4.1-5.3); Red Cell Distribution Width 14.6 % (12.1-15.1); White Blood Count 14.5 10^3/uL (4.0-10.0)
[2021-06-26] MEDS: cefTRIAXone 1,000 MG in sodium chloride 0.9% (plus) 50 ML 100 MG IV (22:15)
[2021-06-26] MEDS: azithromycin 250 mg Tablet 500 MG PO (22:15)
[2021-06-26 22:18] LABS: Blood Urea Nitrogen 11 mg/dL (6-20); Calcium 7.8 mg/dL (8.5-10.5); Carbon Dioxide 28 mmol/L (22-29); Chloride 95 mmol/L (98-107); Glomerular Filtration Rate 110.7 mL/min (90-130); Glucose 226 mg/dL (65-115); Osmolality Calculated 282 mOsm/kg (285-295); Sodium 133 mmol/L (136-145)
[2021-06-26 22:24] LABS: Anion Gap 13.4 (5-19); Potassium 3.4 mmol/L (3.5-5.1)
[2021-06-26 23:53] LABS: Adenovirus Not Detected (NOT DETECT); Chlamydia Pneumoniae Not Detected (NOT DETECT); Coronavirus 229E,HKU1,NL63,OC4 Not Detected (NOT DETECT); Human Metapneumovirus Not Detected (NOT DETECT); Human Rhinovirus/Enterovirus Not Detected (NOT DETECT); Influenza A Not Detected (NOT DETECT); Influenza A H1 Not Detected (NOT DETECT); Influenza A H1-2009 Not Detected (NOT DETECT); Influenza A H3 Not Detected (NOT DETECT); Influenza B Not Detected (NOT DETECT); Mycoplasma Pneumoniae Not Detected (NOT DETECT); Parainfluenza Virus Type 1 Not Detected (NOT DETECT); Parainfluenza Virus Type 2 Not Detected (NOT DETECT); Parainfluenza Virus Type 3 Not Detected (NOT DETECT); Parainfluenza Virus Type 4 Not Detected (NOT DETECT); Respiratory Syncytial Virus A Not Detected (NOT DETECT); Respiratory Syncytial Virus B Not Detected (NOT DETECT); SARS-COV-2 Not Detected (NOT DETECT)
--- NOTE | 2021-06-27 02:13 | P.HP_ITS ---
Providers/Chief Complaint Chief Complaint: DEHYDRATION/ EMACIATION/ HIGH BS History of Present Illness Mariana Ace is a 41 year old female with type 1 DM, poorly complaint with medications, H/o depression, severe protein calorie malnutrition datinf back to at least 2018, had a PEG tube in the past to assist with feeding. Last admitted at [facility] on 05/18 for severe malnutrition, intolerance of tube feeds, depression, failure to thrive, decubitus ulcers, unable to care for self, eventually placed at assisted when she remained until 2019. Thereafter states that she started gaining weight, PEG was eventually removed, she discharged from SNF to live with a friend in his rented home. Her friend approximately a month ago and since then she has been unable to eat due to grief and depression stating she has never had anyone pass away on her before . She can no longer afford to pay rent on friend's apartment anymore and is essentially homeless. EMS was called by [facility] today- patient is noted to be disheveled, naked, states she did not have any clothes on at home, has been in a recliner for a month, having BM and urinating on the recliner itself as she is unable to gather strength to get out. She has decubitus ulcers over her back which are chronic, worsened over the past month. States she has only had a few snacks during the course of past month. Family not involved in her care according to patient. review of noted from [facility] reveal she has a h/o retroperitoneal abscess in the perinephric space (E.coli) 2017, ? empyema needing thoracentesis (Lis), sherie endectomy 05/2019, body weight of 30kg with BMI 11. Review of Systems General: Reports: 10 or more systems reviewed and unremarkable except in HPI and below Const: Denies: fever(s), chills or body aches Eyes: Denies: change in vision, blurry vision or photophobia ENMT: Reports: hoarseness; Denies: throat pain, enlarged tonsils, odynophagia or nasal congestion Card: Denies: chest pain, palpitations, irregular heart rhythm, edema, swelling of feet/ankles, lightheadedness, pre-syncope, dyspnea on exertion or orthopnea Resp: Denies: dyspnea, productive cough, non-productive cough, wheezing, s tridor, pain on inspiration, change in phlegm color, hemoptysis or chest congestion GI: Denies: abdominal pain, nausea, vomiting, hematemesis, coffee ground emesis, dysphagia, heartburn, diarrhea, constipation, GI cramping, change in stool character, hematochezia or melena : Denies: flank pain, difficulty voiding, dysuria, urinary frequency, urinary urgency, urinary hesitancy or hematuria Musc: Denies: neck pain, back pain, extremity pain, joint swelling, joint warmth or deformity Neuro: Denies: headache(s), numbness in extremities, weakness in extremities, sensory changes, difficulty walking, frequent falls, dizziness, vertigo, behavioral changes, Slurred speech present or seizure-like activity Psych: Denies: anxiety, depression, suicidal ideation or homicidal ideation Endo: Denies: polyuria, polydipsia, tired all the time, cold intolerance or hot flashes Omar/Lymph: Denies: easy bruising or easy bleeding Medications/Allergies Home Medications Medication Instructions Recorded Confirmed Last Taken Type acetaminophen 325 mg capsule 325 mg PO ONCE PRN 07/03/19 07/06/19 Unknown History alprazolam 0.25 mg tablet 0.25 mg PO TID PRN 07/03/19 07/06/19 Unknown History bisacodyl 10 mg rectal suppository 10 mg KS ONCE PRN 07/03/19 07/06/19 Unknown History camphor-menthol 0.2 %-3.5 % 1 applic TOPICAL ONCE PRN 07/03/19 07/06/19 Unknown History topical gel cetirizine 10 mg tablet 10 mg PO DAILY tab 07/03/19 07/06/19 Unknown History gabapentin 100 mg capsule 100 mg PO TID 07/03/19 07/06/19 Unknown History insulin aspart U-100 100 unit/mL 1 unit SUBCUT TID ml 07/03/19 07/06/19 Unknown History (3 mL) subcutaneous pen insulin glargine 100 unit/mL 23 unit SUBCUT DAILY 07/03/19 07/06/19 Unknown History subcutaneous cartridge ketotifen fumarate 0.025 % (0.035 1 drop OPHTHALMIC (EYE) BID 07/03/19 07/06/19 Unknown History %) eye drops lidocaine 5 % topical patch 1 patch TOPICAL .twice daily each 07/03/19 07/06/19 Unknown History lidocaine HCl 2 % mucosal solution 1 applic MUCOUS MEM QID PRN 07/03/19 07/06/19 Unknown History loperamide 2 mg capsule 2 mg PO Q6H PRN cap 07/03/19 07/06/19 Unknown History magnesium hydroxide 400 mg/5 mL 15 ml PO BID PRN 07/03/19 07/06/19 Unknown H istory oral suspension melatonin 3 mg capsule 3 mg PO DAILY cap 07/03/19 07/06/19 Unknown History meloxicam 7.5 mg tablet 7.5 mg PO ONCE PRN 07/03/19 07/06/19 Unknown History metoprolol tartrate 25 mg tablet 12.5 mg PO BID 07/03/19 07/06/19 Unknown History ondansetron HCl 4 mg tablet 4 mg PO Q8H PRN 07/03/19 07/06/19 Unknown History pantoprazole 40 mg tablet,delayed 40 mg PO QAM 07/03/19 07/06/19 Unknown History release paroxetine HCl 20 mg tablet 20 mg PO QAM 07/03/19 07/06/19 Unknown History polyethylene glycol 3350 17 gram 17 gm PO BID PRN 07/03/19 07/06/19 Unknown History oral powder packet propylene glycol 0.6 % eye drops 1 drop OPHTHALMIC (EYE) BID PRN 07/03/19 07/06/19 Unknown History simethicone 80 mg chewable tablet 80 mg PO ONCE PRN 07/03/19 07/06/19 Unknown History sodium phosphates 19 gram-7 118 ml KS ONCE PRN 07/03/19 07/06/19 Unknown History gram/118 mL enema tramadol 50 mg tablet 50 mg PO Q6H PRN 07/03/19 07/06/19 Unknown History Allergies Allergy/AdvReac Type Severity Reaction Status Date / Time sulfamethoxazole Allergy Rash, Verified 06/26/21 15:28 [From Bactrim] wheezing trimethoprim [From Bactrim] Allergy Rash, Verified 06/26/21 15:28 wheezing PFSH Acute PFSH: Medical History (Updated 06/27/21 @ 02:27 by Olga Wang MD) Aftercare following surgery of the genitourinary system Patient is a status post diagnostic laparoscopy with lysis of adhesions and appendectomy 2 weeks ago. No complications. Patient was counseled regarding pathology report showing acute appendicitis. Follow-up in 4 weeks Breast lump on right side at 9 o'clock position C. difficile colitis MRSA (methicillin resistant staph aureus) culture positive Patient denies medical problems Perinephric abscess History of perinephric and retroperitoneal abscess with yeast in 2018, required percutaneous drainage and had complicated hospital course with respiratory failure, gram-negative pneumonia, thoracentesis, BiPAP therapy requirement, intolerance of oral intake, PEG tube placement, intolerance of tube feeds Secondary amenorrhea 39-year-old female with secondary amenorrhea. Progestin challenge test described Patient referred to the progestin challenge test she had a withdrawal bleeding from 05/07/2019 to 05/13/2019. Trichotillomania Surgical History (Updated 06/27/21 @ 02:24 by Olga Wang MD) deliv NOS-unsp 1999 History of cholecystectomy 2011 History of tubal ligation 2000 S/P appendectomy S/P laparoscopy 05/20/2019- Diagnostic Laparoscopy, Lysis of Adhesions performed by Dr. Shah at [facility] Appendectomy performed by Dr. Robledo on 05/20/2019 Family History Grandmother Diabetes MATERNAL Cancer paternal Grandfather Heart disease maternal Cancer paternal Family/Other Breast cancer Paternal Aunt Social History Smoking and tobacco status: current every day smoker cigarettes Packs smoked per day: 1 Years cigarettes smoked: 28 Alcohol intake: never Additional social history: Well balanced diet Vitals/I&O/Wt Last Vital Signs Temp 98.1 F 06/26/21 20:24 Pulse 96 06/26/21 21:35 Resp 16 06/26/21 20:24 BP 113/77 06/26/21 21:35 Pulse Ox 92 06/26/21 21:35 06/26/21 06/26/21 06/27/21 14:59 22:59 06:59 Intake Total 1632.7 / 1632.7 Balance 1632.7 / 1632.7 Weight last 48 hrs Weight 31.751 kg Physical Exam Narrative: EXAM NARRATIVE: General: cachexic, disheveled , naked, incontinent BMI 12 HEENT: PERRLA, pupils bilaterally equal and reactive, pallors not present Chest: Normal vesicular breath sounds, no added sounds, equal good air entry bilaterally CVS: S1-S2 regular, no murmurs, no tachycardia, no gallops, no rubs Abdomen: soft, non tender, BS+ Neuro: No focal deficits, no facial deformity, AO x3, power 5/5 in all limbs Extremities: Multiple decubitus ulcers over lower back currently covered in feces, appear to be stage 2-3 Data : 06/26/21 21:34 06/26/21 21:34 Micro: Microbiology 06/26/21 17:16 Blood Culture - Preliminary Blood SPECIMEN COLLECTED 06/26/21 16:50 Blood Culture - Preliminary Blood SPECIMEN COLLECTED Attestation for Other Data: I personally reviewed and interpreted the following: Other data: Laboratory Results WBC 14.5 10^3/uL (4.0-10.0) H 06/26/21 21:34 RBC 5.82 10^6/uL (4.1-5.3) H 06/26/21 21:34 Hgb 16.5 g/dL (11.5-15.3) H 06/26/21 21:34 Hct 49.3 % (37.0-47.0) H 06/26/21 21:34 MCV 84.7 fl (81-99) 06/26/21 21:34 MCH 28.4 pg (28.0-34.0) 06/26/21 21:34 MCHC 33.5 g/dL (30.0-36.0) 06/26/21 21:34 RDW 14.6 % (12.1-15.1) 06/26/21 21:34 Plt Count 229 10^3/cmm (130-400) 06/26/21 21:34 MPV 9.8 fL (7.4-10.4) 06/26/21 21:34 Neut % (Auto) 77.4 % 06/26/21 21:34 Lymph % (Auto) 17.6 % 06/26/21 21:34 [place] % (Auto) 3.8 % 06/26/21 21:34 Eos % (Auto) 0.1 % 06/26/21 21:34 Baso % (Auto) 0.6 % 06/26/21 21:34 Neut # (Auto) 11.19 10^3/uL (1.8-7.7) H 06/26/21 21:34 Lymph # (Auto) 2.6 10^3/uL (0.8-4.8) 06/26/21 21:34 [place] # (Auto) 0.6 10^3/uL (0.2-0.9) 06/26/21 21:34 Eos # (Auto) 0.0 10^3/uL (0.0-0.8) 06/26/21 21:34 Baso # (Auto) 0.1 10^3/uL (0.0-0.1) 06/26/21 21:34 Nucleated RBC % (auto) 0 % 06/26/21 21:34 Nucleated RBCs # 0.0 /100WBC 06/26/21 21:34 Specimen Type Arterial 06/26/21 16:40 Sample Site Brachial, right 06/26/21 16:40 ABG pH 7.41 (7.35-7.45) 06/26/21 16:40 ABG pCO2 44.8 mmHg (35-45) 06/26/21 16:40 ABG pO2 62.2 mmHg (80.0-100.0) L 06/26/21 16:40 ABG HCO3 28.5 mmol/L (22-26) H 06/26/21 16:40 ABG O2 Saturation 94.6 06/26/21 16:40 ABG Base Excess 3.1 mmol/L (-2.0-2.0) H 06/26/21 16:40 Kaushik Test N/a 06/26/21 16:40 A-a O2 Gradient 4.1 mmHg (5-10) L 06/26/21 16:40 Hematocrit 55.1 % (37-47) H 06/26/21 16:40 Hgb O2 Saturation 85.8 % (95-100) L 06/26/21 16:40 Carboxyhemoglobin 8.8 %THgb (0.4-20.1) 06/26/21 16:40 Methemoglobin 0.5 % (0.4-1.5) 06/26/21 16:40 Total Hemoglobin 18.0 g/dL (12-16) H 06/26/21 16:40 Sodium 125.0 mmol/L (131-143) L 06/26/21 16:40 Potassium 4.1 mmol/L (3.5-5.0) 06/26/21 16:40 Glucose 523.0 mg/dL (70-115) H 06/26/21 16:40 Ionized Calcium 1.2 mmol/L (1.1-1.4) 06/26/21 16:40 O2 Delivery Device Room air 06/26/21 16:40 FiO2 21.0 % 06/26/21 16:40 Operations Management Trainee ID Ed 06/26/21 16:40 Sodium 133 mmol/L (136-145) L 06/26/21 21:34 Potassium 3.4 mmol/L (3.5-5.1) L 06/26/21 21:34 Chloride 95 mmol/L (98-107) L 06/26/21 21:34 Carbon Dioxide 28 mmol/L (22-29) 06/26/21 21:34 Anion Gap 13.4 (5-19) 06/26/21 21:34 BUN 11 mg/dL (6-20) 06/26/21 21:34 Creatinine 0.6 mg/dL (0.5-0.9) 06/26/21 21:34 GFR Calculation 110.7 mL/min (90-130) 06/26/21 21:34 Glucose 226 mg/dL (65-115) H 06/26/21 21:34 POC Glucose 387 mg/dL (70-110) H 06/26/21 20:01 Calculated Osmolality 282 mOsm/kg (285-295) L 06/26/21 21:34 Calcium 7.8 mg/dL (8.5-10.5) L 06/26/21 21:34 Phosphorus 3.1 mg/dL (2.5-4.5) 06/26/21 16:50 Magnesium 1.8 mg/dL (1.7-2.3) 06/26/21 16:50 Total Bilirubin 0.3 mg/dL (0.15-1.2) 06/26/21 16:50 AST 7 U/L (0-32) 06/26/21 16:50 ALT 6 U/L (0-33) 06/26/21 16:50 Alkaline Phosphatase 204 IU/L (35-105) H 06/26/21 16:50 NT-Pro-B Natriuret Pep 2834 pg/mL (0-125) H 06/26/21 16:50 Total Protein 5.5 g/dL (6.6-8.7) L 06/26/21 16:50 Albumin 2.5 g/dL (3.5-5.2) L 06/26/21 16:50 Globulin 3.0 g/dL (1.3-4.6) 06/26/21 16:50 TSH 1.84 uIU/mL (0.27-4.20) 06/26/21 16:50 Free T4 1.17 ng/dL (0.82-1.77) 06/26/21 16:50 HCG, Qual Negative (Negative) 06/26/21 16:50 Serum Ketones Negative (Negative) 06/26/21 16:50 Coronavirus 229E (PCR) Not detected (NOT DETECT) 06/26/21 21:55 SARS-CoV-2 (PCR) Not detected (NOT DETECT) 06/26/21 21:55 Impressions Abdomen/Pelvis CT 06/26/21 15:25 IMPRESSION: 1. Prior postoperative changes cholecystectomy. 2. No hydronephrosis in either kidney. Bilateral renal parenchymal scarring. 3. Urine distended bladder. 4. Prior tubal ligation clips. 5. Normal sigmoid colon. 6. Slight micronodularity in the lower lobes laterally likely inflammatory. 7. No acute abdominal or pelvic findings. Chest X-Ray 06/26/21 18:40 IMPRESSION: No acute findings. Chest CTA 06/26/21 19:13 IMPRESSION: 1. No evidence for pulmonary embolus. 2. Mixed centrilobular ground-glass nodules and tree-in-bud opacities throughout both lungs. If patient is a smoker, this could represent desquamative interstitial pneumonia. Endobronchial infection is also a consideration. A&P Assessment and plan (1) Depression: Status: Acute (2) Adult failure to thrive: Status: Acute (3) Dehydration: Status: Acute (4) Hyperglycemia: Status: Acute (5) Homeless: Status: Acute (6) Decubitus ulcers: Status: Acute (7) Severe protein-calorie malnutrition: Status: Acute (8) Type 1 diabetes mellitus: Status: Acute (9) Generalized weakness: Status: Acute Additional A&P Information 41 year old lady with protein calorie malnutrition, BMI 12, presenting today with hyperglycemia (has not taken insulin in a month), dehydration, cachexia. Admit to med/surg IVF NS @ 50cc/hr Insulin sliding scale, no current signs of DKA/ HHS, check Hba1c CT chest abdomen and pelvis without signs of malignancy, denies any dysphagia, states poor po intake is due to depression and deconditioning Nutrition consult in am , PT/OT evaluaton Check TSH, hbA1c Patient will likely need assitance with disposition planning given her current homeless state, inability to care for self local wound care, incontinence care for decubitus ulcers, no sigsn of cellulitis or sepsis at this time Attestations Medical Necessity Statement*: Anticipated stay greater than 2 midnights given dehydration, hyperglycemia, malnutrition, inabilty to care for self, homeless state needing disposition planning, poorly controlled medical issues. She is a high risk of rapid clinical decline without appropriate medical care. 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 of Care Code Acute [place] for Chg Fwd Diagnoses Depression F32.A Adult failure to thrive R62.7 Dehydration E86.0 Hyperglycemia R73.9 Homeless Z59.00 Decubitus ulcers L89.90 Severe protein-calorie malnutrition E43 Type 1 diabetes mellitus E10.9 Generalized weakness R53.1
[2021-06-27] MEDS: enoxaparin 40 mg/0.4 mL Syringe SUBCUT (03:48)
[2021-06-27] MEDS: sodium chloride 0.9% 1,000 ML 50 ML IV ×2 (03:48→22:45)
[2021-06-27 04:23] LABS: Add Urine Microscopic? YES; Bilirubin Urine Neg (Negative); Blood Urine Neg (Negative); Glucose Urine UA 4+ (Normal); Ketones Urine Negative (Negative); Leukocyte Esterase Urine Negative (Negative); Nitrate Urine Negative (Negative); Protein Urine 2+ (Negative); Specific Gravity, Urine 1.005 (1.005-1.030); Urine Appearance Clear (CLEAR); Urine Color Yellow (Yellow); Urobilinogen Urine Neg (Negative); pH Urine 5 (5-7)
[2021-06-27 04:24] LABS: Add Urine Culture? No; Fine Granular Casts Urine 0-4 /lpf; Mucus Urine TRACE /hpf; RBC Urine 0-4 /hpf (0-2); Squamous Epithelial Cell Urine RARE /hpf (0-5); WBC Urine RARE /hpf (0-5)
[2021-06-27] MEDS: lidocaine 5% Patch 1 PATCH TOPICAL ×2 (09:25→21:38)
[2021-06-27] MEDS: PARoxetine 20 mg Tablet PO (09:28)
[2021-06-27] MEDS: pantoprazole DR 40 mg Tablet PO (09:34)
[2021-06-27] MEDS: metoprolol tartrate 25 mg Tablet 12.5 MG PO ×2 (09:36→17:02)
[2021-06-27] MEDS: gabapentin 100 mg Capsule PO ×3 (09:37→20:27)
[2021-06-27 09:52] LABS: Estmated Average Glucose 510; Hemoglobin A1C 19.4 % (4.0-6.0)
[2021-06-27 10:38] LABS: Magnesium 1.3 mg/dL (1.7-2.3); Phosphorus 2.2 mg/dL (2.5-4.5)
--- NOTE | 2021-06-27 12:16 | PC.NURSE ---
called to patients room. patient states i need cleaned up. patients linen and brief changed and patient wiped down with aloe lotion. patient noted to have stage two ulcerations to buttocks in multiple region and side of hips. patient in no obvious distress. patient placed on hall monitor and vitals obtained. Patient given [place] , crackers and peanut butter.
[2021-06-27 13:01] LABS: HIV 1 & 2 Antibody Non-Reactive (Non-Reactiv); HIV 1 & 2 Antigen Non-Reactive (Non-Reactiv)
[2021-06-27 13:02] LABS: Hepatitis A Antibody IgM Non-Reactive (Nonreactive); Hepatitis B Core AB, Total Non-Reactive (Nonreactive); Hepatitis B Surface AB 3.5 (11.5-1000); Hepatitis B Surface Antigen Non-Reactive (Nonreactive); Hepatitis C Virus Antibody Non-Reactive (Nonreactive); Rapid Plasma Reagin Syphilis Nonreactive (Nonreactive)
[2021-06-27 15:00] VITALS: BP 121/77; PULSE 96; RESP 20; O2SAT 95
--- NOTE | 2021-06-27 15:04 | PC.NURSE ---
patients linens changed along with brief. Patient in no obvious disterss. Patient denies further needs/complaints at this time.
[2021-06-27] MEDS: multivitamin therapeutic Tablet 1 TAB PO (15:17)
[2021-06-27 16:15] VITALS: BP 115/65; PULSE 84; RESP 18; TEMP 37.3; O2SAT 100
[2021-06-27 16:24] VITALS: BP 115/65; PULSE 84; RESP 20; TEMP 37.3; O2SAT 100
[2021-06-27] MEDS: magnesium sulfate premix 4 GM/100 ML PREMIX IV (16:55)
[2021-06-27 17:02] VITALS: BP 119/79; PULSE 96; RESP 16; TEMP 37.2; O2SAT 90
[2021-06-27] MEDS: phosphorus 250 mg Tablet PO (17:02)
[2021-06-27 17:05] VITALS: BMI 12.6
[2021-06-27 17:10] LABS: Glucose Point of Care 101 mg/dL (70-110)
--- NOTE | 2021-06-27 17:50 | PM.PN ---
Subjective Subjective: Interval history: Patient tells me that her boyfriend about a month ago, from a brain tumor, since then she is just not been eating, she is not moved out of her chair, she tells me that her children have been helping to some degree but very minimally, she tells that she is on her own, she does feel down depressed and sad, no guilty feelings, does have a lack of energy, denies thoughts of hurting herself, denies thoughts of hurting others Vitals/I&O/Wt Last Vital Signs Temp 98.9 F 06/27/21 17:02 Pulse 96 06/27/21 17:02 Resp 16 06/27/21 17:02 BP 119/79 06/27/21 17:02 Pulse Ox 90 06/27/21 17:02 Weight last 48 hrs Weight 31.751 kg Physical Exam Narrative: EXAM NARRATIVE: Cachectic, appearing Const: COMMON NORMALS: no acute distress GENERAL APPEARANCE: disheveled and frail appearing Resp: COMMON NORMALS: normal respiratory effort, No retractions, No use of accessory muscles and clear to auscultation bilaterally AUSCULTATION: clear to auscultation bilaterally Cardio: COMMON NORMALS: regular rate, regular rhythm, S1 normal heart sound present and S2 normal heart sound present RATE: regular rate RHYTHM: regular rhythm HEART SOUNDS: S1 normal heart sound present and S2 normal heart sound present GI: COMMON NORMALS: Normal to inspection, nondistended, normoactive bowel sounds present, Soft to palpation and non-tender PALPATION: Yes Soft to palpation Extremity: COMMON NORMALS: no pedal edema Data : 06/26/21 21:34 06/26/21 21:34 Micro: Microbiology 06/26/21 17:16 Blood Culture - Preliminary Blood NEGATIVE TO DATE 06/26/21 16:50 Blood Culture - Preliminary Blood NEGATIVE TO DATE A&P Assessment and plan (1) Depression: Status: Acute (2) Adult failure to thrive: Status: Acute (3) Dehydration: Status: Acute (4) Hyperglycemia: Status: Acute (5) Homeless: Status: Acute (6) Decubitus ulcers: Status: Acute (7) Severe protein-calorie malnutrition: Status: Acute (8) Type 1 diabetes mellitus: Status: Acute (9) Generalized weakness: Status: Acute Additional A&P Information 41 year old lady with protein calorie malnutrition, BMI 12, presenting today with hyperglycemia (has not taken insulin in a month), dehydration, cachexia. Admit to med/surg IVF NS @ 50cc/hr Insulin sliding scale, no current signs of DKA/ HHS, check Hba1c 19 CT chest abdomen and pelvis without signs of malignancy, denies any dysphagia, states poor po intake is due to depression and deconditioning Nutrition consult in am , PT/OT evaluaton Check TSH within normal limits Depression, continue home paroxetine, Xanax, consult psychiatry HIV, acute hep panel pending Patient will likely need assitance with disposition planning given her current homeless state, inability to care for self local wound care, incontinence care for decubitus ulcers, no sigsn of cellulitis or sepsis at this time Attestations Medical Necessity Statement*: Patient requires hospitalization for failure to thrive 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 of Care Code Acute Roofer Helper Vinyl Coating for Chg Fwd Diagnoses Depression F32.A Adult failure to thrive R62.7 Dehydration E86.0 Hyperglycemia R73.9 Homeless Z59.00 Decubitus ulcers L89.90 Severe protein-calorie malnutrition E43 Type 1 diabetes mellitus E10.9 Generalized weakness R53.1
[2021-06-27 19:23] VITALS: BP 149/87; PULSE 88; RESP 17; TEMP 36.7; O2SAT 96
[2021-06-27 20:34] LABS: Glucose Point of Care 147 mg/dL (70-110)
[2021-06-27] MEDS: insulin lispro 100 unit/1 mL SUBCUT (21:35)
[2021-06-27 23:48] VITALS: BP 122/77; PULSE 71; RESP 16; TEMP 36.4; O2SAT 90
--- NOTE | 2021-06-27 23:49 | PC.NURSE ---
i reported low temp 97.5 to nurse
[2021-06-28] VITALS (7 sets, daily range): BP systolic 118–148; BP diastolic 71–86; PULSE 74–100; RESP 16–18; TEMP 36.6–36.9; O2SAT 86–96
--- NOTE | 2021-06-28 00:24 | PC.NURSE ---
1999 lying in bed. No distress. Call light in reach.
--- NOTE | 2021-06-28 00:25 | PC.NURSE ---
2200 Requests something to eat. Vanilla sugar free pudding given. Instructed to turn off back side due to skin issues on buttocks. Voices understanding. Assisted to right side.
--- NOTE | 2021-06-28 00:26 | PC.NURSE ---
0005 Pt sleeping in bed. Lying on back. Easily arouses. No distress.
--- NOTE | 2021-06-28 02:05 | PC.NURSE ---
0200 Resting on right side. no distress noted. Call light in reach.
[2021-06-28 03:32] LABS: Glucose Point of Care 57 mg/dL (70-110)
[2021-06-28 03:32] LABS: Glucose Point of Care 33 mg/dL (70-110)
[2021-06-28] MEDS: dextrose 50% syringe 50 mL IVP (03:38)
[2021-06-28] MEDS: dextrose 5 % 500 ML 100 ML IV (03:41)
[2021-06-28] MEDS: enoxaparin 40 mg/0.4 mL Syringe SUBCUT (03:49)
[2021-06-28 04:09] LABS: Glucose Point of Care 233 mg/dL (70-110)
--- NOTE | 2021-06-28 04:25 | PC.NURSE ---
0400 accu check 233. Ate 1 vanilla pudding. Alert and oriented x 3.
--- NOTE | 2021-06-28 04:26 | PC.NURSE ---
0415 Lab at bedside for serum glucose.
--- NOTE | 2021-06-28 04:32 | PC.NURSE ---
0353 notified of glucose and protocol initiated.
[2021-06-28 04:42] LABS: Basophils % 0.4 %; Eosinophils % 0.1 %; Hematocrit 46.6 % (37.0-47.0); Hemoglobin 15.4 g/dL (11.5-15.3); Lymphocytes # 1.7 10^3/uL (0.8-4.8); Lymphocytes % 14.7 %; Mean Corpuscular Hemoglobin 27.9 pg (28.0-34.0); Mean Corpuscular Volume 84.4 fl (81-99); Mean Platelet Volume 10.5 fL (7.4-10.4); Monocytes # 0.6 10^3/uL (0.2-0.9); Neutrophils # 8.98 10^3/uL (1.8-7.7); Neutrophils % 79.3 %; Nucleated Red Blood Cells % 0 %; Platelet Count 246 10^3/cmm (130-400); Red Blood Count 5.52 10^6/uL (4.1-5.3); Red Cell Distribution Width 14.4 % (12.1-15.1); White Blood Count 11.3 10^3/uL (4.0-10.0)
--- NOTE | 2021-06-28 04:59 | PC.NURSE ---
i reported low o2 86 to nurse
[2021-06-28 05:10] LABS: Magnesium 2.8 mg/dL (1.7-2.3); Phosphorus 3.2 mg/dL (2.5-4.5)
--- NOTE | 2021-06-28 06:04 | PC.NURSE ---
0500 Sitting up in bed eating chocolate pudding. No distress. alert and oriented x 3.
--- NOTE | 2021-06-28 06:05 | PC.NURSE ---
0600 resting in bed. Easily arouses. No distress.
[2021-06-28 06:31] LABS: Alanine Aminotransferase 7 U/L (0-33); Albumin Level 2.6 g/dL (3.5-5.2); Alkaline Phosphatase 139 IU/L (35-105); Aspartate Amino Transferase 12 U/L (0-32); Blood Urea Nitrogen 8 mg/dL (6-20); Calcium 7.8 mg/dL (8.5-10.5); Carbon Dioxide 26 mmol/L (22-29); Chloride 97 mmol/L (98-107); Globulin 2.1 g/dL (1.3-4.6); Glomerular Filtration Rate 110.7 mL/min (90-130); Glucose 203 mg/dL (65-115); Osmolality Calculated 282 mOsm/kg (285-295); Sodium 134 mmol/L (136-145); Total Bilirubin 0.2 mg/dL (0.15-1.2); Total Protein 4.7 g/dL (6.6-8.7)
[2021-06-28 06:34] LABS: Anion Gap 13.6 (5-19); Potassium 2.6 mmol/L (3.5-5.1)
--- NOTE | 2021-06-28 06:41 | PC.NURSE ---
0630 Large loose incontinent bm. Shelli care given. Turned to right side. skin barrier applied to buttocks and hips.
[2021-06-28 06:42] LABS: Glucose Point of Care 260 mg/dL (70-110)
--- NOTE | 2021-06-28 07:06 | P.NPUCON_ITS ---
Providers/Reason for Consult Consulting Physican/Specialty*: Lenard Lang MD/Psychiatist Reason for Consult*: Depression and failure to thrive. Attending Physician: Pacheco Shelley MD Psych Consult HPI History of Present Illness Mariana Ace is a 41 year old female who has reportedly been sitting in her recliner for the last month since her boyfriend from cancer. She was released from a jail about 2 years ago. She says that she was about 154 pounds when she was in a jail. She thinks that she should probably go back into a jail. She has gradually lost weight since she left the jail. She was on a feeding tube at one point. Even the last year when she had her boyfriend she continued to lose weight and not eat much. Things have been significantly worse for the last month. She has been surviving on Dr. Nuñez. She has a friend who would visit periodically and bring her 12 pack. She says that she initially just did not want to get up of this pound weight long she could no longer get up out of the chair. She wanted to . She says that she has been eating since he has been in the hospital. She says that she does not want to . She is depressed and agreed to take an antidepressant. She says that she always has difficulty sleeping. She does have low energy, motivation and self-esteem. She initially denied prior depression however said that she had been on Paxil sometime in the past but it did not help. Meds Current Medications: Current Medications Generic Name Dose Route Start Last Admin Trade Name Freq PRN Reason Stop Dose Admin Dextrose 50 ml 06/27/21 02:38 06/28/21 03:38 Dextrose 50% Syr saundra 50 Ml IVP 50 ml PRN PRN Administration hypoglycemia prot ocol Protocol Enoxaparin Sodium 40 mg 06/27/21 02:45 06/28/21 03:49 Enoxaparin 40 Mg /0.4 Ml Syringe SUBCUT 40 mg Q24H SHARON Administration Gabapentin 100 mg 06/27/21 09:00 06/27/21 20:27 Gabapentin 100 M g Capsule PO 100 mg TID SHARON Administration Dextrose 500 mls @ 100 mls /hr 06/27/21 02:38 06/28/21 03:41 D5w IV 100 mls/hr ONCE PRN Administration Adult Acute Hypog lycemia Prot Protocol Sodium Chloride 1,000 mls @ 50 ml s/hr 06/27/21 02:45 06/27/21 22:45 Sodium Chloride 0.9% IV 50 mls/hr .Q20H SHARON Administration Insulin Detemir 5 unit 06/27/21 09:00 06/27/21 21:33 Insulin Detemir 100 Units/1 Ml SUBCUT 5 unit Q12H SHARON Administration Insulin Human Lisp ro 0 unit 06/27/21 08:00 06/27/21 21:35 Insulin Lispro 1 00 Unit/1 Ml SUBCUT 4 unit WM&BEDTIME SHARON Administration Protocol Lidocaine 1 patch 06/27/21 09:00 06/27/21 21:38 Lidocaine 5% Pat ch TOPICAL 1 patch [id number] SHARON Administration Metoprolol Tartrat e 12.5 mg 06/27/21 09:00 06/27/21 17:02 Metoprolol Tartr ate 25 Mg Tablet PO 12.5 mg BID SHARON Administration Multivitamins Ther apeutic 1 tab 06/27/21 15:00 06/27/21 15:17 Multivitamin The rapeutic Tablet PO 1 tab DAILY SHARON Administration Pantoprazole Sodiu m 40 mg 06/27/21 09:00 06/27/21 09:[address] 40 Mg Tablet PO 40 mg DAILY SHARON Administration Paroxetine HCl 20 mg 06/27/21 09:00 06/27/21 09:28 Paroxetine 20 Mg Tablet PO 20 mg DAILY SHARON Administration Potassium Phosphat e 250 mg 06/27/21 18:00 06/27/21 17:02 Phosphorus 250 M g Tablet PO 250 mg BID SHARON Administration PFSH NPU PFSH: Medical History (Updated 06/28/21 @ 07:18 by Lenard Lang MD) Aftercare following surgery of the genitourinary system Patient is a status post diagnostic laparoscopy with lysis of adhesions and appendectomy 2 weeks ago. No complications. Patient was counseled regarding pathology report showing acute appendicitis. Follow-up in 4 weeks Breast lump on right side at 9 o'clock position C. difficile colitis MRSA (methicillin resistant staph aureus) culture positive Patient denies medical problems Perinephric abscess History of perinephric and retroperitoneal abscess with yeast in 2018, required percutaneous drainage and had complicated hospital course with respiratory failure, gram-negative pneumonia, thoracentesis, BiPAP therapy requirement, intolerance of oral intake, PEG tube placement, intolerance of tube feeds Secondary amenorrhea 39-year-old female with secondary amenorrhea. Progestin challenge test described Patient referred to the progestin challenge test she had a withdrawal bleeding from 05/07/2019 to 05/13/2019. Trichotillomania Surgical History (Updated 06/27/21 @ 02:24 by Olga Wang MD) deliv NOS-unsp 1999 History of cholecystectomy 2011 History of tubal ligation 2000 S/P appendectomy S/P laparoscopy 05/20/2019- Diagnostic Laparoscopy, Lysis of Adhesions performed by Dr. Shah at [facility] Appendectomy performed by Dr. Robledo on 05/20/2019 Family History Grandmother Diabetes MATERNAL Cancer paternal Grandfather Heart disease maternal Cancer paternal Family/Other Breast cancer Paternal Aunt Social History Smoking and tobacco status: current every day smoker cigarettes Packs smoked per day: 1 Years cigarettes smoked: 28 Alcohol intake: never Additional social history: Well balanced diet Mental Status Exam MSE Comments: This is a very thin 41-year-old female who appears older than her stated age and is in no acute distress. I had some difficulty waking her up. She was pleasant and cooperative. She is dressed in a hospital gown. psychomotor activity decreased. Speech is at a regular rate and rhythm, normal volume, good articulation, not pressured. Alert, oriented X3 Attention and concentration appears to be good. Memory is intact Mood is depressed. Affect is dysphoric. Thought process is logical and goal-directed. Thought content: Denies auditory and visual hallucinations. No delusions or paranoia are noted. No current suicidal ideation, and no homicidal ideation. Fund of knowledge is about average. Insight and judgment appear to be fair. Impulse control is appears to be good. Vitals/I&O/Wt Last Vital Signs Temp 97.9 F 06/28/21 04:00 Pulse 75 06/28/21 04:00 Resp 16 06/28/21 04:00 BP 143/84 06/28/21 04:00 Pulse Ox 93 06/28/21 04:50 06/27/21 06/28/21 06/28/21 22:59 06:59 14:59 Intake Total 2207.5 / 2207.5 480 / 2687.5 Balance 2207.5 / 2207.5 480 / 2687.5 Weight last 48 hrs Weight 33.339 kg Weight 31.751 kg Data NPU Micro: Micro: Microbiology 06/26/21 17:16 Blood Culture - Pr eliminary Blood NEGATIVE TO MICHAEL E 06/26/21 16:50 Blood Culture - Pr eliminary Blood NEGATIVE TO MICHAEL E Microbiology 06/26/21 17:16 Blood Blood Culture - Preliminary NEGATIVE TO DATE 06/26/21 16:50 Blood Blood Culture - Preliminary NEGATIVE TO DATE A&P Assessment and plan (1) Depression: Status: Acute Qualifiers: Depression Type: major depressive disorder Major depression recurrence: recurrent Active/Remission status: currently active Major depression episode severity: severe Psychotic features: without psychotic features Qualified Code(s): F33.2 - Major depressive disorder, recurrent severe without psychotic features (2) Adult failure to thrive: From significant depression which is a significant amount of her problem. Would consider trying the antidepressant Remeron at bedtime which helps her sleep and also stimulates the appetite significantly. Status: Acute (3) Hyperglycemia: Status: Acute (4) Type 1 diabetes mellitus: Status: Acute Qualifiers: Diabetes mellitus complication status: with hyperglycemia Qualified Code(s): E10.65 - Type 1 diabetes mellitus with hyperglycemia (5) Severe protein-calorie malnutrition: Status: Acute (6) Decubitus ulcers: Status: Acute Qualifiers: Pressure injury location: buttock Attestations NPU Medical Necessity Statement*: Inpatient hospitalization is medically necessary and the clinically appropriate intervention at this time. We will initiate medications and make changes as indicated. 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
[2021-06-28] MEDS: lidocaine 1% 5 ML in potassium chloride premix 100 ML 25 ML IV ×2 (07:51→12:48)
[2021-06-28] MEDS: metoprolol tartrate 25 mg Tablet 12.5 MG PO ×2 (08:10→17:55)
[2021-06-28] MEDS: gabapentin 100 mg Capsule PO ×3 (08:10→20:59)
[2021-06-28] MEDS: multivitamin therapeutic Tablet 1 TAB PO (08:10)
[2021-06-28] MEDS: pantoprazole DR 40 mg Tablet PO (08:10)
[2021-06-28] MEDS: PARoxetine 20 mg Tablet PO (08:10)
[2021-06-28] MEDS: lidocaine 5% Patch 1 PATCH TOPICAL ×2 (08:10→21:46)
[2021-06-28] MEDS: phosphorus 250 mg Tablet PO ×2 (08:10→17:55)
[2021-06-28 09:27] LABS: Glucose Point of Care 178 mg/dL (70-110)
[2021-06-28] MEDS: insulin lispro 100 unit/1 mL SUBCUT ×2 (09:29→12:47)
--- NOTE | 2021-06-28 10:16 | PC.CHAP ---
Pastoral Care Encounter/Spiritual Assessment Type of Contact [] Declined data coordinator visit [] Patient/Family/Request visit [] Outpatient visit [] Follow-up visit [] Physician referral [] Code/Alert [x] Routine visit [] Staff referral [] Actively dying [] Patient sleeping [] Family support [] [] Out of room [] Palliative care [] [] Receiving care in room [] Pre-surgical visit [] Trauma [] Long length of stay [] ICU visit [] Other: Relational/Emotional Strength [x] Patient feels connected with others/family/visitors/staff [] Distress [] Loneliness/isolation [] Abandonment Spirituality of Patient [x] Person of Annette [x] Attends Catholic of their Annette [x] Believes in Prayer [] Reads Bible or Spiritism materials [] There are Spiritual issues to be addressed 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 [x] Prayer [x] Active listening [x] Non-anxious presence [x] Spiritual/emotional support [] Crisis/trauma care [] Spiritual counseling [] Bereavement support [] Provided bereavement packet [] Provided Bible/devotional materials [] Provided toy/stuffed animal, coloring book to patient or family member [] Provided Communion [] Anointing/Reading [] Salvation [x] Completed spiritual assessment [] Other: Impact on Illness or Injury [] Angry [] Fearful [] Anxious [] Often cries [] Exhaustion [] Unable to work [] Unable to attend denominational [] Unable to walk/stand [] Unable to read [] Unable to drive [] Unable to eat/drink [] Unable to sleep [] Unable to be with family [] Patient intubated [] Other: Summary Time spent with patient 10 min
[2021-06-28 10:57] LABS: Glucose Point of Care 164 mg/dL (70-110)
[2021-06-28] MEDS: acetaminophen 325 mg Tablet 650 MG PO (15:21)
--- NOTE | 2021-06-28 15:53 | PM.PN ---
Subjective Subjective: Interval history: Patient was seen this morning, she tells me that she feels weak, no nausea, vomiting, she continues to have episodes of diarrhea, denies chest pain, denies palpitations Vitals/I&O/Wt Last Vital Signs Temp 98.2 F 06/28/21 15:20 Pulse 100 06/28/21 15:20 Resp 18 06/28/21 15:20 BP 135/86 06/28/21 15:20 Pulse Ox 90 06/28/21 15:20 06/28/21 06/28/21 06/28/21 06:59 14:59 22:59 Intake Total 480 / 2687.5 1565 / 1565 Balance 480 / 2687.5 1565 / 1565 Weight last 48 hrs Weight 33.339 kg Physical Exam Narrative: EXAM NARRATIVE: Cachectic, appearing Const: COMMON NORMALS: no acute distress and patient oriented x3 GENERAL APPEARANCE: frail appearing OTHER: Cachexia Resp: COMMON NORMALS: normal respiratory effort, No retractions, No use of accessory muscles and clear to auscultation bilaterally AUSCULTATION: clear to auscultation bilaterally Cardio: COMMON NORMALS: regular rate, regular rhythm, S1 normal heart sound present and S2 normal heart sound present RATE: regular rate RHYTHM: regular rhythm HEART SOUNDS: S1 normal heart sound present and S2 normal heart sound present GI: COMMON NORMALS: Normal to inspection, nondistended, normoactive bowel sounds present, Soft to palpation and non-tender PALPATION: Yes Soft to palpation Extremity: COMMON NORMALS: no pedal edema Neuro: COMMON NORMALS: patient oriented x3 Psych: COMMON NORMALS: mental status grossly normal Data : 06/28/21 04:13 06/28/21 04:13 Micro: Microbiology 06/26/21 17:16 Blood Culture - Preliminary Blood NEGATIVE TO DATE 06/26/21 16:50 Blood Culture - Preliminary Blood NEGATIVE TO DATE A&P Assessment and plan (1) Depression: Status: Acute Qualifiers: Active/Remission status: currently active Depression Type: major depressive disorder Major depression episode severity: severe Major depression recurrence: recurrent Psychotic features: without psychotic features Qualified Code(s): F33.2 - Major depressive disorder, recurrent severe without psychotic features (2) Adult failure to thrive: Status: Acute (3) Dehydration: Status: Acute (4) Hyperglycemia: Status: Acute (5) Homeless: Status: Acute (6) Decubitus ulcers: Status: Acute Qualifiers: Pressure injury location: buttock (7) Severe protein-calorie malnutrition: Status: Acute (8) Type 1 diabetes mellitus: Status: Acute Qualifiers: Diabetes mellitus complication status: with hyperglycemia Qualified Code(s): E10.65 - Type 1 diabetes mellitus with hyperglycemia (9) Generalized weakness: Status: Acute (10) Hypokalemia: Status: Acute Additional A&P Information 41 year old lady with protein calorie malnutrition, BMI 12, presenting today with hyperglycemia (has not taken insulin in a month), dehydration, cachexia. Admit to med/surg IVF NS @ 50cc/hr Insulin sliding scale, no current signs of DKA/ HHS, check Hba1c 19 CT chest abdomen and pelvis without signs of malignancy, denies any dysphagia, states poor po intake is due to depression and deconditioning Nutrition consult in am , PT/OT evaluaton TSH within normal limits Depression, continue home paroxetine, Xanax, consult psychiatry HIV, acute hep panel negative Hypokalemia, receiving IV replacement Hypomagnesemia, continue to monitor, currently is within normal limits Hypophosphatemia, continue to monitor Diarrhea, stool studies pending Patient will likely need assitance with disposition planning given her current homeless state, inability to care for self local wound care, incontinence care for decubitus ulcers, no sigsn of cellulitis or sepsis at this time Attestations Medical Necessity Statement*: Patient requires hospitalization for hypokalemia, protein calorie malnutrition, anorexia 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 of Care Code Acute Office Support Clerk for [facility] Fwd Diagnoses Depression F33.2 Active/Remission status: currently active Depression Type: major depressive disorder Major depression episode severity: severe Major depression recurrence: recurrent Psychotic features: without psychotic features Adult failure to thrive R62.7 Dehydration E86.0 Hyperglycemia R73.9 Homeless Z59.00 Decubitus ulcers L89.90 Pressure injury location: buttock Severe protein-calorie malnutrition E43 Type 1 diabetes mellitus E10.65 Diabetes mellitus complication status: with hyperglycemia Generalized weakness R53.1 Hypokalemia E87.6
[2021-06-28 16:58] LABS: Glucose Point of Care 113 mg/dL (70-110)
[2021-06-28] MEDS: sodium chloride 0.9% 1,000 ML 50 ML IV (17:56)
[2021-06-28 18:33] LABS: Anion Gap 15.8 (5-19); Blood Urea Nitrogen 8 mg/dL (6-20); Calcium 7.5 mg/dL (8.5-10.5); Carbon Dioxide 23 mmol/L (22-29); Chloride 98 mmol/L (98-107); Glomerular Filtration Rate 110.7 mL/min (90-130); Glucose 116 mg/dL (65-115); Osmolality Calculated 273 mOsm/kg (285-295); Potassium 4.8 mmol/L (3.5-5.1); Sodium 132 mmol/L (136-145)
[2021-06-28] MEDS: TRAMadol 50 mg Tablet PO (20:59)
[2021-06-28 21:28] LABS: Glucose Point of Care 135 mg/dL (70-110)
[2021-06-29] VITALS (8 sets, daily range): BP systolic 118–157; BP diastolic 72–88; PULSE 74–91; RESP 16–20; TEMP 36.7–37.2; O2SAT 90–96
[2021-06-29] MEDS: enoxaparin 40 mg/0.4 mL Syringe SUBCUT (02:46)
--- NOTE | 2021-06-29 02:58 | PC.NURSE ---
0250 Pt had large loose bm incontinent. Shelli care given. clean pads and gown. Soiled dressings to coccyx and right hip area removed and fresh applied. quarter size area to right buttock with escar.
[2021-06-29] MEDS: TRAMadol 50 mg Tablet PO ×2 (03:24→20:18)
[2021-06-29 05:38] LABS: Basophils # 0.1 10^3/uL (0.0-0.1); Basophils % 0.5 %; Eosinophils # 0.1 10^3/uL (0.0-0.8); Eosinophils % 0.6 %; Hematocrit 46.5 % (37.0-47.0); Hemoglobin 15.1 g/dL (11.5-15.3); Lymphocytes # 1.9 10^3/uL (0.8-4.8); Lymphocytes % 19.4 %; Mean Corpuscular HGB Conc 32.5 g/dL (30.0-36.0); Mean Corpuscular Hemoglobin 28.1 pg (28.0-34.0); Mean Corpuscular Volume 86.6 fl (81-99); Mean Platelet Volume 10.4 fL (7.4-10.4); Monocytes # 0.5 10^3/uL (0.2-0.9); Monocytes % 5.2 %; Neutrophils # 7.23 10^3/uL (1.8-7.7); Neutrophils % 73.9 %; Nucleated Red Blood Cells % 0 %; Platelet Count 239 10^3/cmm (130-400); Red Blood Count 5.37 10^6/uL (4.1-5.3); Red Cell Distribution Width 14.7 % (12.1-15.1); White Blood Count 9.8 10^3/uL (4.0-10.0)
[2021-06-29 06:03] LABS: Magnesium 2.3 mg/dL (1.7-2.3); Phosphorus 3.6 mg/dL (2.5-4.5)
[2021-06-29 06:10] LABS: Alanine Aminotransferase 7 U/L (0-33); Albumin Level 2.4 g/dL (3.5-5.2); Alkaline Phosphatase 128 IU/L (35-105); Anion Gap 13.4 (5-19); Aspartate Amino Transferase 10 U/L (0-32); Blood Urea Nitrogen 7 mg/dL (6-20); Calcium 7.5 mg/dL (8.5-10.5); Carbon Dioxide 26 mmol/L (22-29); Chloride 104 mmol/L (98-107); Creatinine Clr Calc Pharmacy 78.7171; Glomerular Filtration Rate 136.6 mL/min (90-130); Glucose 127 mg/dL (65-115); Osmolality Calculated 288 mOsm/kg (285-295); Potassium 4.4 mmol/L (3.5-5.1); Sodium 139 mmol/L (136-145); Total Bilirubin 0.2 mg/dL (0.15-1.2); Total Protein 4.4 g/dL (6.6-8.7)
[2021-06-29 06:34] LABS: Glucose Point of Care 158 mg/dL (70-110)
[2021-06-29] MEDS: insulin lispro 100 unit/1 mL SUBCUT ×2 (08:00→22:04)
[2021-06-29] MEDS: phosphorus 250 mg Tablet PO ×2 (08:00→17:18)
[2021-06-29] MEDS: lidocaine 5% Patch 1 PATCH TOPICAL ×2 (08:01→22:55)
[2021-06-29] MEDS: PARoxetine 20 mg Tablet PO (08:01)
[2021-06-29] MEDS: pantoprazole DR 40 mg Tablet PO (08:01)
[2021-06-29] MEDS: multivitamin therapeutic Tablet 1 TAB PO (08:01)
[2021-06-29] MEDS: gabapentin 100 mg Capsule PO ×3 (08:01→20:19)
[2021-06-29] MEDS: metoprolol tartrate 25 mg Tablet 12.5 MG PO ×2 (08:01→17:18)
[2021-06-29] MEDS: sodium chloride 0.9% 1,000 ML 50 ML IV ×2 (09:17→22:33)
[2021-06-29 10:56] LABS: Glucose Point of Care 85 mg/dL (70-110)
[2021-06-29] MEDS: acetaminophen 325 mg Tablet 650 MG PO (12:41)
--- NOTE | 2021-06-29 16:27 | P.PN_ITS ---
Subjective Subjective: Interval history: Patient was seen this morning, she is feeling better, continues to have mild diarrhea, no nausea, no vomiting, her appetite is improving Vitals/I&O/Wt Last Vital Signs Temp 98.1 F 06/29/21 15:43 Pulse 74 06/29/21 15:43 Resp 16 06/29/21 15:43 BP 133/72 06/29/21 15:43 Pulse Ox 96 06/29/21 15:43 06/29/21 06/29/21 06/29/21 06:59 14:59 22:59 Intake Total 237 / 3846.167 1727.5 / 1727.5 Output Total 1500 / 1500 Balance 237 / 3846.167 227.5 / 227.5 Weight last 48 hrs Weight 33.339 kg Physical Exam Narrative: EXAM NARRATIVE: Cachectic, appearing Const: COMMON NORMALS: no acute distress and patient oriented x3 GENERAL APPEARANCE: disheveled and frail appearing OTHER: Cachexia Resp: COMMON NORMALS: normal respiratory effort, No retractions, No use of accessory muscles and clear to auscultation bilaterally AUSCULTATION: clear to auscultation bilaterally Cardio: COMMON NORMALS: regular rate, regular rhythm, S1 normal heart sound present and S2 normal heart sound present RATE: regular rate RHYTHM: regular rhythm HEART SOUNDS: S1 normal heart sound present and S2 normal heart sound present GI: COMMON NORMALS: Normal to inspection, nondistended, normoactive bowel sounds present, Soft to palpation and non-tender PALPATION: Yes Soft to palpation Extremity: COMMON NORMALS: no pedal edema Neuro: COMMON NORMALS: patient oriented x3 Psych: COMMON NORMALS: mental status grossly normal Data : 06/29/21 04:28 06/29/21 04:28 Micro: Microbiology 06/27/21 10:37 Stool Lactoferrin - Final Stool Enteric Pathogens (PCR) - Final Parasite Antigen Panel - Final C.difficile Toxin B Gene (PCR) - Final Occult Blood (FIT) - Final A&P Assessment and plan (1) Depression: Status: Acute Qualifiers: Active/Remission status: currently active Depression Type: major depressive disorder Major depression episode severity: severe Major depression recurrence: recurrent Psychotic features: without psychotic features Qualified Code(s): F33.2 - Major depressive disorder, recurrent severe without psychotic features (2) Adult failure to thrive: Status: Acute (3) Dehydration: Status: Acute (4) Hyperglycemia: Status: Acute (5) Homeless: Status: Acute (6) Decubitus ulcers: Status: Acute Qualifiers: Pressure injury location: buttock (7) Severe protein-calorie malnutrition: Status: Acute (8) Type 1 diabetes mellitus: Status: Acute Qualifiers: Diabetes mellitus complication status: with hyperglycemia Qualified Code(s): E10.65 - Type 1 diabetes mellitus with hyperglycemia (9) Generalized weakness: Status: Acute (10) Hypokalemia: Status: Acute Additional A&P Information 41 year old lady with protein calorie malnutrition, BMI 12, presenting today with hyperglycemia (has not taken insulin in a month), dehydration, cachexia. Admit to med/surg IVF NS @ 50cc/hr Insulin sliding scale, no current signs of DKA/ HHS, check Hba1c 19 CT chest abdomen and pelvis without signs of malignancy, denies any dysphagia, states poor po intake is due to depression and deconditioning Nutrition consult in am , PT/OT evaluaton TSH within normal limits Depression, continue home paroxetine, Xanax, consult psychiatry HIV, acute hep panel negative Hypokalemia, within normal limits, Hypomagnesemia, continue to monitor, currently is within normal limits Hypophosphatemia, continue to monitor Diarrhea, stool studies pending Patient will likely [place] Decubitus ulcers, wound care Attestations Medical Necessity Statement*: Patient requires hospitalization for adult failure to thrive 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 of Care Code Acute Assisted Living Associate for [facility] Fwd Diagnoses Depression F33.2 Active/Remission status: currently active Depression Type: major depressive disorder Major depression episode severity: severe Major depression recurrence: recurrent Psychotic features: without psychotic features Adult failure to thrive R62.7 Dehydration E86.0 Hyperglycemia R73.9 Homeless Z59.00 Decubitus ulcers L89.90 Pressure injury location: buttock Severe protein-calorie malnutrition E43 Type 1 diabetes mellitus E10.65 Diabetes mellitus complication status: with hyperglycemia Generalized weakness R53.1 Hypokalemia E87.6
[2021-06-29 17:00] LABS: Glucose Point of Care 129 mg/dL (70-110)
[2021-06-29 20:19] LABS: Glucose Point of Care 229 mg/dL (70-110)
[2021-06-29] MEDS: loperamide 2 mg Capsule PO (22:36)
--- NOTE | 2021-06-30 01:30 | PC.NURSE ---
2200 pt incontinent of b/b. Assisted to bsc. Voids 900cc. Pericare given. Cream applied to buttocks.
--- NOTE | 2021-06-30 01:32 | PC.NURSE ---
0030 snack given of peanut butter and emmanuel crackers. tolerates well.
[2021-06-30] MEDS: enoxaparin 40 mg/0.4 mL Syringe SUBCUT (03:05)
[2021-06-30 03:54] VITALS: BP 127/78; PULSE 88; RESP 18; TEMP 37.2; O2SAT 95
--- NOTE | 2021-06-30 04:27 | PC.NURSE ---
0200 Pt sleeping, easily arouses. Denies pain. No distress. IV infusing without diff.
[2021-06-30 05:31] LABS: Basophils # 0.1 10^3/uL (0.0-0.1); Basophils % 0.5 %; Eosinophils # 0.1 10^3/uL (0.0-0.8); Eosinophils % 0.4 %; Hematocrit 49.4 % (37.0-47.0); Hemoglobin 16.1 g/dL (11.5-15.3); Lymphocytes # 3.4 10^3/uL (0.8-4.8); Lymphocytes % 21.4 %; Mean Corpuscular HGB Conc 32.6 g/dL (30.0-36.0); Mean Corpuscular Hemoglobin 28.4 pg (28.0-34.0); Mean Corpuscular Volume 87.1 fl (81-99); Mean Platelet Volume 9.9 fL (7.4-10.4); Monocytes # 0.8 10^3/uL (0.2-0.9); Monocytes % 5.1 %; Neutrophils % 72.2 %; Nucleated Red Blood Cells % 0 %; Platelet Count 254 10^3/cmm (130-400); Red Blood Count 5.67 10^6/uL (4.1-5.3); Red Cell Distribution Width 14.9 % (12.1-15.1); White Blood Count 15.8 10^3/uL (4.0-10.0)
[2021-06-30 05:48] LABS: Alanine Aminotransferase 9 U/L (0-33); Albumin Level 2.6 g/dL (3.5-5.2); Alkaline Phosphatase 135 IU/L (35-105); Anion Gap 12.2 (5-19); Aspartate Amino Transferase 12 U/L (0-32); Blood Urea Nitrogen 6 mg/dL (6-20); Calcium 7.7 mg/dL (8.5-10.5); Carbon Dioxide 24 mmol/L (22-29); Chloride 107 mmol/L (98-107); Creatinine Clr Calc Pharmacy 78.7171; Globulin 2.3 g/dL (1.3-4.6); Glomerular Filtration Rate 136.6 mL/min (90-130); Osmolality Calculated 282 mOsm/kg (285-295); Potassium 4.2 mmol/L (3.5-5.1); Sodium 139 mmol/L (136-145); Total Bilirubin 0.2 mg/dL (0.15-1.2); Total Protein 4.9 g/dL (6.6-8.7)
[2021-06-30 05:57] LABS: Magnesium 1.8 mg/dL (1.7-2.3); Phosphorus 2.4 mg/dL (2.5-4.5)
[2021-06-30 06:03] LABS: Glucose 34 mg/dL (65-115)
[2021-06-30] MEDS: dextrose 50% syringe 50 mL 25 ML IVP (06:13)
[2021-06-30 07:30] VITALS: BP 135/82; PULSE 100; RESP 18; TEMP 36.9; O2SAT 94
[2021-06-30] MEDS: PARoxetine 20 mg Tablet PO (07:43)
[2021-06-30] MEDS: phosphorus 250 mg Tablet PO ×2 (07:43→17:18)
[2021-06-30] MEDS: gabapentin 100 mg Capsule PO ×3 (07:43→20:51)
[2021-06-30] MEDS: multivitamin therapeutic Tablet 1 TAB PO (07:43)
[2021-06-30] MEDS: metoprolol tartrate 25 mg Tablet 12.5 MG PO ×2 (07:43→17:18)
[2021-06-30] MEDS: lidocaine 5% Patch 1 PATCH TOPICAL ×2 (07:44→20:50)
[2021-06-30] MEDS: pantoprazole DR 40 mg Tablet PO (07:44)
[2021-06-30] MEDS: dextrose 5%-sod chloride 0.9% 1,000 ML 50 ML IV (07:48)
[2021-06-30 08:38] LABS: Glucose Point of Care 159 mg/dL (70-110)
[2021-06-30 11:09] VITALS: BP 125/74; PULSE 102; RESP 16; TEMP 36.7; O2SAT 94
[2021-06-30 11:23] LABS: Glucose Point of Care 151 mg/dL (70-110)
[2021-06-30] MEDS: acetaminophen 325 mg Tablet 650 MG PO (11:37)
--- NOTE | 2021-06-30 12:49 | PM.PN ---
Subjective Subjective: Interval history: Patient was seen this morning, she still has complaints of diarrhea, she would like to try an antidiarrheal medication, she tells me that her appetite is improving, she had her breakfast tray in front of her, Vitals/I&O/Wt Last Vital Signs Temp 98.1 F 06/30/21 11:09 Pulse 102 H 06/30/21 11:09 Resp 16 06/30/21 11:09 BP 125/74 06/30/21 11:09 Pulse Ox 94 06/30/21 11:09 06/29/21 06/30/21 06/30/21 22:59 06:59 14:59 Intake Total 1383.333 / 3110.833 320 / 3430.833 480 / 480 Output Total 1800 / 3300 300 / 3600 Balance -416.667 / -189.167 20 / -169.167 480 / 480 Physical Exam Narrative: EXAM NARRATIVE: Cachectic, appearing Const: COMMON NORMALS: no acute distress and patient oriented x3 GENERAL APPEARANCE: frail appearing OTHER: Cachexia HENMT: COMMON NORMALS: normocephalic HEAD & SCALP: normocephalic Resp: COMMON NORMALS: normal respiratory effort, No retractions, No use of accessory muscles and clear to auscultation bilaterally AUSCULTATION: clear to auscultation bilaterally Cardio: COMMON NORMALS: regular rate, regular rhythm, S1 normal heart sound present and S2 normal heart sound present RATE: regular rate RHYTHM: regular rhythm HEART SOUNDS: S1 normal heart sound present and S2 normal heart sound present GI: COMMON NORMALS: Normal to inspection, nondistended, normoactive bowel sounds present, Soft to palpation and non-tender PALPATION: Yes Soft to palpation Extremity: COMMON NORMALS: no pedal edema Neuro: COMMON NORMALS: patient oriented x3 Psych: COMMON NORMALS: mental status grossly normal Data : 06/30/21 04:47 06/30/21 04:47 Micro: Microbiology 06/27/21 10:37 Stool Lactoferrin - Final Stool Enteric Pathogens (PCR) - Final Parasite Antigen Panel - Final C.difficile Toxin B Gene (PCR) - Final Occult Blood (FIT) - Final A&P Assessment and plan (1) Depression: Status: Acute Qualifiers: Active/Remission status: currently active Depression Type: major depressive disorder Major depression episode severity: severe Major depression recurrence: recurrent Psychotic features: without psychotic features Qualified Code(s): F33.2 - Major depressive disorder, recurrent severe without psychotic features (2) Adult failure to thrive: Status: Acute (3) Dehydration: Status: Acute (4) Hyperglycemia: Status: Acute (5) Homeless: Status: Acute (6) Decubitus ulcers: Status: Acute Qualifiers: Pressure injury location: buttock (7) Severe protein-calorie malnutrition: Status: Acute (8) Type 1 diabetes mellitus: Status: Acute Qualifiers: Diabetes mellitus complication status: with hyperglycemia Qualified Code(s): E10.65 - Type 1 diabetes mellitus with hyperglycemia (9) Generalized weakness: Status: Acute (10) Hypokalemia: Status: Acute Additional A&P Information 41 year old lady with protein calorie malnutrition, BMI 12, presenting today with hyperglycemia (has not taken insulin in a month), dehydration, cachexia. Admit to med/surg Had hypoglycemia this morning, blood sugar in the low 30s, will decrease Levemir to 5 units twice daily, D5 normal saline at 50 cc an hour Insulin sliding scale, no current signs of DKA/ HHS, check Hba1c 19 CT chest abdomen and pelvis without signs of malignancy, denies any dysphagia, states poor po intake is due to depression and deconditioning Nutrition consult,, PT/OT evaluaton Encourage p.o. intake, calorie intake as per nutrition, Ensure drinks TSH within normal limits Depression, continue home paroxetine, add Remeron at nighttime, continue Xanax, consult psychiatry HIV, acute hep panel negative, order celiac and KELLY panel Hypokalemia, within normal limits, Hypomagnesemia, continue to monitor, currently is within normal limits Hypophosphatemia, continue to monitor Diarrhea, stool studies so far unremarkable start loperamide Patient will likely need [place] Decubitus ulcers, wound care Attestations Medical Necessity Statement*: Patient requires hospitalization for adult failure to thrive 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 of Care Code Acute Supervisor Contact And Service Clerks for [facility] Diagnoses Depression F33.2 Active/Remission status: currently active Depression Type: major depressive disorder Major depression episode severity: severe Major depression recurrence: recurrent Psychotic features: without psychotic features Adult failure to thrive R62.7 Dehydration E86.0 Hyperglycemia R73.9 Homeless Z59.00 Decubitus ulcers L89.90 Pressure injury location: buttock Severe protein-calorie malnutrition E43 Type 1 diabetes mellitus E10.65 Diabetes mellitus complication status: with hyperglycemia Generalized weakness R53.1 Hypokalemia E87.6
--- NOTE | 2021-06-30 13:15 | PC.CHAP ---
Pastoral Care Encounter/Spiritual Assessment Type of Contact [] Declined linen grader visit [] Patient/Family/Request visit [] Outpatient visit [xx] Follow-up visit [] Physician referral [] Code/Alert [] Routine visit [] Staff referral [] Actively dying [xx] Patient sleeping [] Family support [] [] Out of room [] Palliative care [] [] Receiving care in room [] Pre-surgical visit [] Trauma [] Long length of stay [] ICU visit [] Other: Relational/Emotional Strength [] Patient feels connected with others/family/visitors/staff [] Distress [] Loneliness/isolation [] Abandonment Spirituality of Patient [] Person of Annette [] Attends Denominational of their Annette [] Believes in Prayer [] Reads Bible or Voodoo materials [] There are Spiritual issues to be addressed Panel Wirer Interventions [] Prayer [] Active listening [] Non-anxious presence [] Spiritual/emotional support [] Crisis/trauma care [] Spiritual counseling [] Bereavement support [] Provided bereavement packet [] Provided Bible/devotional materials [] Provided toy/stuffed animal, coloring book to patient or family member [] Provided Communion [] Anointing/[place] [] Salvation [] Completed spiritual assessment [] Other: Impact on Illness or Injury [] Angry [] Fearful [] Anxious [] Often cries [] Exhaustion [] Unable to work [] Unable to attend yazdanism [] Unable to walk/stand [] Unable to read [] Unable to drive [] Unable to eat/drink [] Unable to sleep [] Unable to be with family [] Patient intubated [] Other: Summary Time spent with patient
[2021-06-30 16:00] VITALS: BP 123/71; PULSE 98; RESP 16; TEMP 36.7; O2SAT 94
[2021-06-30 17:01] LABS: Glucose Point of Care 263 mg/dL (70-110)
[2021-06-30] MEDS: insulin lispro 100 unit/1 mL SUBCUT (17:19)
[2021-06-30 19:53] VITALS: BP 140/87; PULSE 87; RESP 19; TEMP 37.1; O2SAT 94
[2021-06-30 20:42] LABS: Glucose Point of Care 141 mg/dL (70-110)
[2021-06-30] MEDS: mirtazapine 15 mg Tablet 7.5 MG PO (20:51)
[2021-06-30 23:34] VITALS: BP 118/77; PULSE 80; RESP 19; TEMP 36.8; O2SAT 97
[2021-07-01] MEDS: enoxaparin 40 mg/0.4 mL Syringe SUBCUT (02:08)
[2021-07-01 04:00] VITALS: BP 139/79; PULSE 81; RESP 16; TEMP 36.9; O2SAT 97
[2021-07-01 06:40] LABS: Glucose Point of Care 72 mg/dL (70-110)
[2021-07-01 07:03] LABS: Basophils # 0.1 10^3/uL (0.0-0.1); Basophils % 0.7 %; Eosinophils # 0.1 10^3/uL (0.0-0.8); Eosinophils % 0.9 %; Hematocrit 49.5 % (37.0-47.0); Hemoglobin 15.8 g/dL (11.5-15.3); Lymphocytes # 2.2 10^3/uL (0.8-4.8); Lymphocytes % 22.8 %; Mean Corpuscular HGB Conc 31.9 g/dL (30.0-36.0); Mean Corpuscular Hemoglobin 28.3 pg (28.0-34.0); Mean Corpuscular Volume 88.6 fl (81-99); Mean Platelet Volume 10.1 fL (7.4-10.4); Monocytes # 0.6 10^3/uL (0.2-0.9); Monocytes % 6.1 %; Neutrophils # 6.71 10^3/uL (1.8-7.7); Neutrophils % 69.1 %; Nucleated Red Blood Cells % 0 %; Platelet Count 222 10^3/cmm (130-400); Red Blood Count 5.59 10^6/uL (4.1-5.3); White Blood Count 9.7 10^3/uL (4.0-10.0)
[2021-07-01 07:46] VITALS: BP 134/78; PULSE 103; RESP 18; TEMP 37.2; O2SAT 94
[2021-07-01 08:06] LABS: Alanine Aminotransferase 8 U/L (0-33); Albumin Level 2.2 g/dL (3.5-5.2); Alkaline Phosphatase 121 IU/L (35-105); Anion Gap 16.9 (5-19); Aspartate Amino Transferase 11 U/L (0-32); Blood Urea Nitrogen 7 mg/dL (6-20); Calcium 7.6 mg/dL (8.5-10.5); Carbon Dioxide 19 mmol/L (22-29); Chloride 109 mmol/L (98-107); Globulin 1.7 g/dL (1.3-4.6); Glomerular Filtration Rate 176.8 mL/min (90-130); Glucose 75 mg/dL (65-115); Magnesium 1.9 mg/dL (1.7-2.3); Osmolality Calculated 287 mOsm/kg (285-295); Phosphorus 2.8 mg/dL (2.5-4.5); Potassium 4.9 mmol/L (3.5-5.1); Sodium 140 mmol/L (136-145); Total Bilirubin 0.2 mg/dL (0.15-1.2)
[2021-07-01 08:29] LABS: Total Protein 4.1 g/dL (6.6-8.7)
[2021-07-01 09:20] LABS: Glucose Point of Care 219 mg/dL (70-110)
[2021-07-01] MEDS: lidocaine 5% Patch 1 PATCH TOPICAL ×2 (10:40→20:30)
[2021-07-01] MEDS: PARoxetine 20 mg Tablet PO (10:41)
[2021-07-01] MEDS: phosphorus 250 mg Tablet PO ×2 (10:41→17:58)
[2021-07-01] MEDS: pantoprazole DR 40 mg Tablet PO (10:41)
[2021-07-01] MEDS: multivitamin therapeutic Tablet 1 TAB PO (10:41)
[2021-07-01] MEDS: metoprolol tartrate 25 mg Tablet 12.5 MG PO (10:43)
[2021-07-01] MEDS: gabapentin 100 mg Capsule PO ×3 (11:14→20:30)
[2021-07-01 11:29] LABS: Glucose Point of Care 288 mg/dL (70-110)
[2021-07-01 12:00] VITALS: BP 172/113; PULSE 104; RESP 20; O2SAT 98
[2021-07-01] MEDS: insulin lispro 100 unit/1 mL SUBCUT ×2 (14:11→21:59)
[2021-07-01] MEDS: acetaminophen 325 mg Tablet 650 MG PO (14:11)
[2021-07-01 16:00] VITALS: BP 113/71; PULSE 105; RESP 20; TEMP 37.8; O2SAT 96
--- NOTE | 2021-07-01 17:00 | PM.PN ---
Subjective Subjective: Interval history: Patient was seen this morning, has no fever complaints, her diarrhea is improving Vitals/I&O/Wt Last Vital Signs Temp 100.1 F H 07/01/21 16:00 Pulse 105 H 07/01/21 16:00 Resp 20 H 07/01/21 16:00 BP 113/71 07/01/21 16:00 Pulse Ox 96 07/01/21 16:00 07/01/21 07/01/21 07/01/21 06:59 14:59 22:59 Intake Total 1480 / 4460 1736 / 1736 Output Total 800 / 3050 1200 / 1200 Balance 680 / 1410 536 / 536 Weight last 48 hrs Weight 37.195 kg Physical Exam Const: COMMON NORMALS: no acute distress and patient oriented x3 GENERAL APPEARANCE: disheveled and frail appearing OTHER: Cachexia Resp: COMMON NORMALS: normal respiratory effort, No retractions, No use of accessory muscles and clear to auscultation bilaterally AUSCULTATION: clear to auscultation bilaterally Cardio: COMMON NORMALS: regular rate, regular rhythm, S1 normal heart sound present and S2 normal heart sound present RATE: regular rate RHYTHM: regular rhythm HEART SOUNDS: S1 normal heart sound present and S2 normal heart sound present GI: COMMON NORMALS: Normal to inspection, nondistended, normoactive bowel sounds present, Soft to palpation and non-tender PALPATION: Yes Soft to palpation Extremity: COMMON NORMALS: no pedal edema Neuro: COMMON NORMALS: patient oriented x3 Psych: COMMON NORMALS: mental status grossly normal Data : 07/01/21 06:05 07/01/21 04:46 A&P Assessment and plan (1) Depression: Status: Acute Qualifiers: Active/Remission status: currently active Depression Type: major depressive disorder Major depression episode severity: severe Major depression recurrence: recurrent Psychotic features: without psychotic features Qualified Code(s): F33.2 - Major depressive disorder, recurrent severe without psychotic features (2) Adult failure to thrive: Status: Acute (3) Dehydration: Status: Acute (4) Hyperglycemia: Status: Acute (5) Homeless: Status: Acute (6) Decubitus ulcers: Status: Acute Qualifiers: Pressure injury location: buttock (7) Severe protein-calorie malnutrition: Status: Acute (8) Type 1 diabetes mellitus: Status: Acute Qualifiers: Diabetes mellitus complication status: with hyperglycemia Qualified Code(s): E10.65 - Type 1 diabetes mellitus with hyperglycemia (9) Generalized weakness: Status: Acute (10) Hypokalemia: Status: Acute Additional A&P Information 41 year old lady with protein calorie malnutrition, BMI 12, presenting today with hyperglycemia (has not taken insulin in a month), dehydration, cachexia. Admit to med/surg Continue Levemir to 5 units twice daily, will stop fluids Insulin sliding scale, no current signs of DKA/ HHS, check Hba1c 19 CT chest abdomen and pelvis without signs of malignancy, denies any dysphagia, states poor po intake is due to depression and deconditioning Nutrition consult,, PT/OT evaluaton Encourage p.o. intake, calorie intake as per nutrition, Ensure drinks TSH within normal limits Depression, continue home paroxetine, add Remeron at nighttime, continue Xanax, consult psychiatry HIV, acute hep panel negative, order celiac and KELLY panel Hypokalemia, within normal limits, Hypomagnesemia, continue to monitor, currently is within normal limits Hypophosphatemia, continue to monitor Diarrhea, stool studies so far unremarkable start loperamide Patient will likely need usp placement Decubitus ulcers, wound care Attestations Medical Necessity Statement*: Patient requires hospitalization problems with adult failure to thrive 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 of Care Code Acute Sports Management Intern for [facility] Fwd Diagnoses Depression F33.2 Active/Remission status: currently active Depression Type: major depressive disorder Major depression episode severity: severe Major depression recurrence: recurrent Psychotic features: without psychotic features Adult failure to thrive R62.7 Dehydration E86.0 Hyperglycemia R73.9 Homeless Z59.00 Decubitus ulcers L89.90 Pressure injury location: buttock Severe protein-calorie malnutrition E43 Type 1 diabetes mellitus E10.65 Diabetes mellitus complication status: with hyperglycemia Generalized weakness R53.1 Hypokalemia E87.6
[2021-07-01 17:47] LABS: Glucose Point of Care 79 mg/dL (70-110)
[2021-07-01 20:00] VITALS: BP 102/70; PULSE 105; RESP 19; TEMP 37.2; O2SAT 97
[2021-07-01] MEDS: mirtazapine 15 mg Tablet 7.5 MG PO (20:30)
[2021-07-01] MEDS: loperamide 2 mg Capsule PO (20:30)
[2021-07-01 21:12] LABS: Glucose Point of Care 233 mg/dL (70-110)
[2021-07-01 23:25] VITALS: BP 117/74; PULSE 94; RESP 18; TEMP 37.2; O2SAT 97
[2021-07-02] MEDS: enoxaparin 40 mg/0.4 mL Syringe SUBCUT (02:09)
[2021-07-02 03:54] VITALS: BP 109/70; PULSE 99; RESP 18; TEMP 37.4; O2SAT 98
[2021-07-02 05:16] LABS: Basophils % 0.5 %; Eosinophils # 0.1 10^3/uL (0.0-0.8); Eosinophils % 0.8 %; Hematocrit 43.6 % (37.0-47.0); Hemoglobin 13.8 g/dL (11.5-15.3); Lymphocytes # 2.5 10^3/uL (0.8-4.8); Lymphocytes % 29.4 %; Mean Corpuscular HGB Conc 31.7 g/dL (30.0-36.0); Mean Corpuscular Hemoglobin 27.7 pg (28.0-34.0); Mean Corpuscular Volume 87.6 fl (81-99); Monocytes # 0.8 10^3/uL (0.2-0.9); Monocytes % 8.9 %; Neutrophils # 5.16 10^3/uL (1.8-7.7); Neutrophils % 60.3 %; Nucleated Red Blood Cells % 0 %; Platelet Count 211 10^3/cmm (130-400); Red Blood Count 4.98 10^6/uL (4.1-5.3); Red Cell Distribution Width 14.7 % (12.1-15.1); White Blood Count 8.6 10^3/uL (4.0-10.0)
[2021-07-02 05:31] LABS: Alanine Aminotransferase 7 U/L (0-33); Albumin Level 2.2 g/dL (3.5-5.2); Alkaline Phosphatase 101 IU/L (35-105); Anion Gap 13.9 (5-19); Aspartate Amino Transferase 10 U/L (0-32); Blood Urea Nitrogen 11 mg/dL (6-20); Calcium 7.9 mg/dL (8.5-10.5); Carbon Dioxide 26 mmol/L (22-29); Chloride 104 mmol/L (98-107); Globulin 2.2 g/dL (1.3-4.6); Glomerular Filtration Rate 110.7 mL/min (90-130); Glucose 71 mg/dL (65-115); Magnesium 1.6 mg/dL (1.7-2.3); Osmolality Calculated 286 mOsm/kg (285-295); Phosphorus 2.9 mg/dL (2.5-4.5); Potassium 4.9 mmol/L (3.5-5.1); Sodium 139 mmol/L (136-145); Total Bilirubin 0.2 mg/dL (0.15-1.2); Total Protein 4.4 g/dL (6.6-8.7)
[2021-07-02 06:31] LABS: Glucose Point of Care 67 mg/dL (70-110)
[2021-07-02 06:31] LABS: Glucose Point of Care 112 mg/dL (70-110)
[2021-07-02] MEDS: magnesium sulfate premix 2 GM/50 ML PIGGYBACK IV (06:51)
[2021-07-02 07:36] VITALS: BP 126/78; PULSE 106; RESP 16; TEMP 36.9; O2SAT 98
[2021-07-02] MEDS: multivitamin therapeutic Tablet 1 TAB PO (08:04)
[2021-07-02] MEDS: metoprolol tartrate 25 mg Tablet 12.5 MG PO ×2 (08:04→17:34)
[2021-07-02] MEDS: phosphorus 250 mg Tablet PO ×2 (08:04→17:34)
[2021-07-02] MEDS: pantoprazole DR 40 mg Tablet PO (08:04)
[2021-07-02] MEDS: lidocaine 5% Patch 1 PATCH TOPICAL ×2 (08:04→21:29)
[2021-07-02] MEDS: gabapentin 100 mg Capsule PO ×3 (08:04→21:24)
[2021-07-02] MEDS: PARoxetine 20 mg Tablet PO (08:04)
[2021-07-02 11:19] LABS: Glucose Point of Care 119 mg/dL (70-110)
[2021-07-02 12:24] VITALS: BP 125/85; PULSE 140; RESP 16; TEMP 37.5; O2SAT 94
--- NOTE | 2021-07-02 14:25 | PM.PN ---
Subjective Subjective: Interval history: Patient was seen this morning, she has no complaints, no nausea, no vomiting, her diarrhea has improved Vitals/I&O/Wt Last Vital Signs Temp 99.5 F 07/02/21 12:24 Pulse 140 H 07/02/21 12:24 Resp 16 07/02/21 12:24 BP 125/85 07/02/21 12:24 Pulse Ox 94 07/02/21 12:24 07/01/21 07/02/21 07/02/21 22:59 06:59 14:59 Intake Total 1065 / 2801 580 / 3381 890 / 890 Output Total 601 / 1801 900 / 2701 Balance 464 / 1000 -320 / 680 890 / 890 Weight last 48 hrs Weight 37.376 kg Weight 37.195 kg Physical Exam Narrative: EXAM NARRATIVE: Cachectic, appearing Const: COMMON NORMALS: no acute distress and patient oriented x3 Resp: COMMON NORMALS: normal respiratory effort, No retractions, No use of accessory muscles and clear to auscultation bilaterally AUSCULTATION: clear to auscultation bilaterally Cardio: COMMON NORMALS: regular rate, regular rhythm, S1 normal heart sound present and S2 normal heart sound present RATE: regular rate RHYTHM: regular rhythm HEART SOUNDS: S1 normal heart sound present and S2 normal heart sound present GI: COMMON NORMALS: Normal to inspection, nondistended, normoactive bowel sounds present, Soft to palpation and non-tender PALPATION: Yes Soft to palpation Extremity: COMMON NORMALS: no pedal edema Neuro: COMMON NORMALS: patient oriented x3 Psych: COMMON NORMALS: mental status grossly normal Data : 07/02/21 04:24 07/02/21 04:24 Micro: Microbiology 06/26/21 17:16 Blood Culture - Final Blood NO GROWTH AFTER 5 DAYS 06/26/21 16:50 Blood Culture - Final Blood NO GROWTH AFTER 5 DAYS A&P Assessment and plan (1) Depression: Status: Acute Qualifiers: Active/Remission status: currently active Depression Type: major depressive disorder Major depression episode severity: severe Major depression recurrence: recurrent Psychotic features: without psychotic features Qualified Code(s): F33.2 - Major depressive disorder, recurrent severe without psychotic features (2) Adult failure to thrive: Status: Acute (3) Dehydration: Status: Acute (4) Hyperglycemia: Status: Acute (5) Homeless: Status: Acute (6) Decubitus ulcers: Status: Acute Qualifiers: Pressure injury location: buttock (7) Severe protein-calorie malnutrition: Status: Acute (8) Type 1 diabetes mellitus: Status: Acute Qualifiers: Diabetes mellitus complication status: with hyperglycemia Qualified Code(s): E10.65 - Type 1 diabetes mellitus with hyperglycemia (9) Generalized weakness: Status: Acute (10) Hypokalemia: Status: Acute Additional A&P Information 41 year old lady with protein calorie malnutrition, BMI 12, presenting today with hyperglycemia (has not taken insulin in a month), dehydration, cachexia. Admit to med/surg Continue Levemir to 5 units twice daily, will stop fluids Insulin sliding scale, no current signs of DKA/ HHS, check Hba1c 19 CT chest abdomen and pelvis without signs of malignancy, denies any dysphagia, states poor po intake is due to depression and deconditioning Nutrition consult,, PT/OT evaluaton Encourage p.o. intake, calorie intake as per nutrition, Ensure drinks TSH within normal limits Depression, continue home paroxetine, add Remeron at nighttime, continue Xanax, consult psychiatry HIV, acute hep panel negative, order celiac and KELLY panel Hypokalemia, within normal limits, Hypomagnesemia, continue to monitor, will replace Hypophosphatemia, continue to monitor Diarrhea, stool studies so far unremarkable start loperamide Patient will likely need halfway placement Decubitus ulcers, wound care Attestations Medical Necessity Statement*: Patient requires hospitalization due to adult failure to thrive 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 of Care Code Acute Charrer for [facility] Fw Diagnoses Depression F33.2 Active/Remission status: currently active Depression Type: major depressive disorder Major depression episode severity: severe Major depression recurrence: recurrent Psychotic features: without psychotic features Adult failure to thrive R62.7 Dehydration E86.0 Hyperglycemia R73.9 Homeless Z59.00 Decubitus ulcers L89.90 Pressure injury location: buttock Severe protein-calorie malnutrition E43 Type 1 diabetes mellitus E10.65 Diabetes mellitus complication status: with hyperglycemia Generalized weakness R53.1 Hypokalemia E87.6
[2021-07-02 15:13] VITALS: BP 136/83; PULSE 111; RESP 16; TEMP 38; O2SAT 94
[2021-07-02 17:05] LABS: Glucose Point of Care 205 mg/dL (70-110)
[2021-07-02] MEDS: insulin lispro 100 unit/1 mL SUBCUT (17:34)
[2021-07-02 20:00] VITALS: BP 141/84; PULSE 99; RESP 21; TEMP 37.4; O2SAT 97
[2021-07-02 21:16] LABS: Glucose Point of Care 228 mg/dL (70-110)
[2021-07-02] MEDS: mirtazapine 15 mg Tablet 7.5 MG PO (21:24)
[2021-07-02] MEDS: acetaminophen 325 mg Tablet 650 MG PO (21:25)
[2021-07-02 23:36] VITALS: BP 131/76; PULSE 85; RESP 18; TEMP 36.7; O2SAT 97
[2021-07-03 02:02] LABS: Glucose Point of Care 147 mg/dL (70-110)
[2021-07-03] MEDS: enoxaparin 40 mg/0.4 mL Syringe SUBCUT (02:32)
[2021-07-03 04:00] VITALS: BP 104/68; PULSE 74; RESP 16; TEMP 36.4; O2SAT 97
[2021-07-03 06:47] LABS: Glucose Point of Care 129 mg/dL (70-110)
[2021-07-03 06:57] LABS: Basophils % 0.5 %; Eosinophils # 0.1 10^3/uL (0.0-0.8); Eosinophils % 0.9 %; Hematocrit 41.8 % (37.0-47.0); Hemoglobin 13.1 g/dL (11.5-15.3); Lymphocytes # 2.6 10^3/uL (0.8-4.8); Lymphocytes % 34.5 %; Mean Corpuscular HGB Conc 31.3 g/dL (30.0-36.0); Mean Corpuscular Volume 89.3 fl (81-99); Mean Platelet Volume 9.6 fL (7.4-10.4); Monocytes # 0.8 10^3/uL (0.2-0.9); Monocytes % 10.8 %; Neutrophils # 4.03 10^3/uL (1.8-7.7); Nucleated Red Blood Cells % 0 %; Platelet Count 205 10^3/cmm (130-400); Red Blood Count 4.68 10^6/uL (4.1-5.3); Red Cell Distribution Width 14.8 % (12.1-15.1); White Blood Count 7.6 10^3/uL (4.0-10.0)
[2021-07-03 07:16] VITALS: BP 117/70; PULSE 79; RESP 16; TEMP 37.2; O2SAT 100
[2021-07-03 07:18] LABS: Alanine Aminotransferase 6 U/L (0-33); Albumin Level 2.1 g/dL (3.5-5.2); Alkaline Phosphatase 93 IU/L (35-105); Anion Gap 10.8 (5-19); Aspartate Amino Transferase 12 U/L (0-32); Blood Urea Nitrogen 12 mg/dL (6-20); Carbon Dioxide 30 mmol/L (22-29); Chloride 104 mmol/L (98-107); Globulin 2.3 g/dL (1.3-4.6); Glomerular Filtration Rate 92.7 mL/min (90-130); Glucose 119 mg/dL (65-115); Magnesium 1.9 mg/dL (1.7-2.3); Osmolality Calculated 291 mOsm/kg (285-295); Phosphorus 3.5 mg/dL (2.5-4.5); Potassium 4.8 mmol/L (3.5-5.1); Sodium 140 mmol/L (136-145); Total Bilirubin 0.2 mg/dL (0.15-1.2); Total Protein 4.4 g/dL (6.6-8.7)
[2021-07-03] MEDS: PARoxetine 20 mg Tablet PO (08:15)
[2021-07-03] MEDS: gabapentin 100 mg Capsule PO ×3 (08:15→21:56)
[2021-07-03] MEDS: multivitamin therapeutic Tablet 1 TAB PO (08:15)
[2021-07-03] MEDS: metoprolol tartrate 25 mg Tablet 12.5 MG PO ×2 (08:15→17:23)
[2021-07-03] MEDS: phosphorus 250 mg Tablet PO ×2 (08:15→17:23)
[2021-07-03] MEDS: pantoprazole DR 40 mg Tablet PO (08:16)
[2021-07-03] MEDS: lidocaine 5% Patch 1 PATCH TOPICAL ×2 (08:16→22:04)
[2021-07-03 11:40] LABS: Glucose Point of Care 203 mg/dL (70-110)
[2021-07-03 11:48] VITALS: BP 126/74; PULSE 86; RESP 16; TEMP 37.1; O2SAT 98
[2021-07-03] MEDS: insulin lispro 100 unit/1 mL SUBCUT ×3 (12:11→21:56)
[2021-07-03] MEDS: acetaminophen 325 mg Tablet 650 MG PO ×2 (12:11→18:24)
[2021-07-03 13:24] LABS: COMPLEMENT COMPONENT C3C 101 mg/dL (83-193); COMPLEMENT COMPONENT C4C 36 mg/dL (15-57)
[2021-07-03 14:27] LABS: Immunoglobulin A 116 mg/dL (47-310)
--- NOTE | 2021-07-03 14:38 | PM.PN ---
Subjective Subjective: Interval history: Patient was seen and examined this morning, no acute events overnight, overall she is doing better. Her other vitals and labs have been reviewed Medications: Medication Review Details: Generic Name Dose Route Start Last Admin Trade Name [place] PRN Reason Stop Dose Admin Acetaminophen 650 mg 06/27/21 02:38 07/03/21 12:11 Acetaminophen 32 5 Mg Tablet PO 650 mg Q6H PRN Administration Mild/Mod Pain Or Temp >/= 101 Dextrose 25 ml 06/27/21 02:38 06/30/21 06:13 Dextrose 50% Syr saundra 50 Ml IVP 25 ml ONCE PRN Administration hypoglycemia prot ocol Protocol Dextrose 50 ml 06/27/21 02:38 06/28/21 03:38 Dextrose 50% Syr saundra 50 Ml IVP 50 ml PRN PRN Administration hypoglycemia prot ocol Protocol Enoxaparin Sodium 40 mg 06/27/21 02:45 07/03/21 02:32 Enoxaparin 40 Mg /0.4 Ml Syringe SUBCUT 40 mg Q24H SHARON Administration Gabapentin 100 mg 06/27/21 09:00 07/03/21 08:15 Gabapentin 100 M g Capsule PO 100 mg TID SHARON Administration Dextrose 500 mls @ 100 mls /hr 06/27/21 02:38 06/28/21 09:36 D5w IV Infused ONCE PRN Infusion Adult Acute Hypog lycemia Prot Protocol Insulin Detemir 5 unit 06/27/21 09:00 07/03/21 08:15 Insulin Detemir 100 Units/1 Ml SUBCUT 5 unit Q12H SHARON Administration Insulin Human Lisp ro 0 unit 06/27/21 08:00 07/03/21 12:11 Insulin Lispro 1 00 Unit/1 Ml SUBCUT 6 unit WM&BEDTIME SHARON Administration Protocol Lidocaine 1 patch 06/27/21 09:00 07/03/21 08:16 Lidocaine 5% Pat ch TOPICAL 1 patch [id number] SHARON Administration Loperamide HCl 2 mg 06/29/21 16:30 07/01/21 20:30 Loperamide 2 Mg Capsule PO 2 mg QID PRN Administration DIARRHEA Metoprolol Tartrat e 12.5 mg 06/27/21 09:00 07/03/21 08:15 Metoprolol Tartr ate 25 Mg Tablet PO 12.5 mg BID SHARON Administration Mirtazapine 7.5 mg 06/30/21 21:00 07/02/21 21:24 Mirtazapine 15 M g Tablet PO 7.5 mg BEDTIME SHARON Administration Multivitamins Ther apeutic 1 tab 06/27/21 15:00 07/03/21 08:15 Multivitamin The rapeutic Tablet PO 1 tab DAILY SHARON Administration Pantoprazole Sodiu m 40 mg 06/27/21 09:00 07/03/21 08:[address] 40 Mg Tablet PO 40 mg DAILY SHARON Administration Paroxetine HCl 20 mg 06/27/21 09:00 07/03/21 08:15 Paroxetine 20 Mg Tablet PO 20 mg DAILY SHARON Administration Potassium Phosphat e 250 mg 06/27/21 18:00 07/03/21 08:15 Phosphorus 250 M g Tablet PO 250 mg BID SHARON Administration Tramadol HCl 50 mg 06/27/21 06:34 06/29/21 20:18 Tramadol 50 Mg T ablet PO 50 mg Q6H PRN Administration PAIN Vitals/I&O/Wt Last Vital Signs Temp 98.8 F 07/03/21 11:48 Pulse 86 07/03/21 11:48 Resp 16 07/03/21 11:48 BP 126/74 07/03/21 11:48 Pulse Ox 98 07/03/21 11:48 07/02/21 07/03/21 07/03/21 22:59 06:59 14:59 Intake Total 800 / 1690 600 / 600 Output Total 1201 / 1201 800 / 2001 200 / 200 Balance -401 / 489 -800 / -311 400 / 400 Weight last 48 hrs Weight 37.376 kg Physical Exam Const: COMMON NORMALS: patient oriented x3 HENMT: COMMON NORMALS: normocephalic and atraumatic HEAD & SCALP: normocephalic and atraumatic Chest: COMMONS NORMALS: normal palpation of entire chest wall CHEST: Yes Symmetrical chest wall rise Resp: COMMON NORMALS: normal respiratory effort, No retractions, No use of accessory muscles and clear to auscultation bilaterally EFFORT & INSPECTION: Yes symmetric chest movement AUSCULTATION: clear to auscultation bilaterally Cardio: COMMON NORMALS: regular rate, regular rhythm, S1 normal heart sound present, S2 normal heart sound present, No gallops present (Cardio), No murmurs present (Cardio), No rub (Cardio) and Peripheral pulses 2+ throughout RATE: regular rate RHYTHM: regular rhythm HEART SOUNDS: S1 normal heart sound present and S2 normal heart sound present PERIPHERAL PULSES: Peripheral pulses 2+ throughout GI: COMMON NORMALS: Normal to inspection, nondistended, normoactive bowel sounds present, Soft to palpation, non-tender, No hepatosplenomegaly present and no masses AUSCULTATION: Yes normoactive bowel sounds PALPATION: Yes Soft to palpation and Yes No hepatosplenomegaly present RECTAL EXAM: deferred : COMMON NORMALS: Yes no CVA tenderness BLADDER/KIDNEY EXAM: Yes no CVA tenderness Back/Pelvis: COMMON NORMALS: no CVA tenderness Extremity: COMMON NORMALS: no clubbing, cyanosis or edema and no pedal edema Neuro: COMMON NORMALS: patient oriented x3 Data : 07/03/21 06:31 07/03/21 06:31 A&P Assessment and plan (1) Depression: Status: Acute Qualifiers: Active/Remission status: currently active Depression Type: major depressive disorder Major depression episode severity: severe Major depression recurrence: recurrent Psychotic features: without psychotic features Qualified Code(s): F33.2 - Major depressive disorder, recurrent severe without psychotic features (2) Adult failure to thrive: Status: Acute (3) Dehydration: Status: Acute (4) Hyperglycemia: Status: Acute (5) Homeless: Status: Acute (6) Decubitus ulcers: Status: Acute Qualifiers: Pressure injury location: buttock (7) Severe protein-calorie malnutrition: Status: Acute (8) Type 1 diabetes mellitus: Status: Acute Qualifiers: Diabetes mellitus complication status: with hyperglycemia Qualified Code(s): E10.65 - Type 1 diabetes mellitus with hyperglycemia (9) Generalized weakness: Status: Acute (10) Hypokalemia: Status: Acute Additional A&P Information 41 year old lady with protein calorie malnutrition, BMI 12, presenting today with hyperglycemia (has not taken insulin in a month), dehydration, cachexia. Admit to med/surg Continue Levemir to 5 units twice daily, will stop fluids Insulin sliding scale, no current signs of DKA/ HHS, check Hba1c 19 CT chest abdomen and pelvis without signs of malignancy, denies any dysphagia, states poor po intake is due to depression and deconditioning Nutrition consult,, PT/OT evaluaton Encourage p.o. intake, calorie intake as per nutrition, Ensure drinks TSH within normal limits Depression, continue home paroxetine, add Remeron at nighttime, continue Xanax, consult psychiatry HIV, acute hep panel negative, order celiac and KELLY panel Hypokalemia, within normal limits, Hypomagnesemia, continue to monitor, will replace Hypophosphatemia, continue to monitor Diarrhea, stool studies so far unremarkable start loperamide Patient will likely need intermediate placement Decubitus ulcers, wound care Attestations Medical Necessity Statement*: Patient needs to be in hospital for management of failure to thrive, currently awaiting intermediate placement. 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
[2021-07-03 15:12] LABS: COMPLEMENT, TOTAL (CH50) >60 U/mL (31-60)
[2021-07-03 15:41] VITALS: BP 127/77; PULSE 86; RESP 16; TEMP 37.1; O2SAT 98
[2021-07-03 17:06] LABS: Glucose Point of Care 222 mg/dL (70-110)
[2021-07-03 19:34] VITALS: BP 109/70; PULSE 91; RESP 17; TEMP 37.1; O2SAT 98
[2021-07-03 21:26] LABS: Glucose Point of Care 265 mg/dL (70-110)
[2021-07-03] MEDS: mirtazapine 15 mg Tablet 7.5 MG PO (21:56)
[2021-07-04] VITALS (7 sets, daily range): BP systolic 100–163; BP diastolic 64–86; PULSE 79–98; RESP 16–18; TEMP 36.7–37.1; O2SAT 94–98
[2021-07-04 00:47] LABS: Glucose Point of Care 82 mg/dL (70-110)
[2021-07-04] MEDS: enoxaparin 40 mg/0.4 mL Syringe SUBCUT (02:17)
[2021-07-04 06:04] LABS: Basophils % 0.6 %; Eosinophils # 0.1 10^3/uL (0.0-0.8); Eosinophils % 1.3 %; Hematocrit 40.4 % (37.0-47.0); Hemoglobin 12.6 g/dL (11.5-15.3); Lymphocytes # 2.4 10^3/uL (0.8-4.8); Lymphocytes % 35.9 %; Mean Corpuscular HGB Conc 31.2 g/dL (30.0-36.0); Mean Corpuscular Hemoglobin 27.7 pg (28.0-34.0); Mean Corpuscular Volume 88.8 fl (81-99); Mean Platelet Volume 9.7 fL (7.4-10.4); Monocytes # 0.6 10^3/uL (0.2-0.9); Monocytes % 8.7 %; Neutrophils # 3.61 10^3/uL (1.8-7.7); Neutrophils % 53.2 %; Nucleated Red Blood Cells % 0 %; Platelet Count 231 10^3/cmm (130-400); Red Blood Count 4.55 10^6/uL (4.1-5.3); Red Cell Distribution Width 14.8 % (12.1-15.1); White Blood Count 6.8 10^3/uL (4.0-10.0)
[2021-07-04 06:38] LABS: Alanine Aminotransferase 8 U/L (0-33); Albumin Level 2.2 g/dL (3.5-5.2); Alkaline Phosphatase 91 IU/L (35-105); Anion Gap 10.8 (5-19); Aspartate Amino Transferase 15 U/L (0-32); Blood Urea Nitrogen 18 mg/dL (6-20); Calcium 8.3 mg/dL (8.5-10.5); Carbon Dioxide 31 mmol/L (22-29); Chloride 103 mmol/L (98-107); Globulin 2.4 g/dL (1.3-4.6); Glomerular Filtration Rate 136.6 mL/min (90-130); Glucose 66 mg/dL (65-115); Magnesium 1.9 mg/dL (1.7-2.3); Osmolality Calculated 290 mOsm/kg (285-295); Phosphorus 3.2 mg/dL (2.5-4.5); Potassium 4.8 mmol/L (3.5-5.1); Sodium 140 mmol/L (136-145); Total Bilirubin 0.2 mg/dL (0.15-1.2); Total Protein 4.6 g/dL (6.6-8.7)
[2021-07-04 06:45] LABS: Glucose Point of Care 60 mg/dL (70-110)
[2021-07-04 07:46] LABS: Glucose Point of Care 86 mg/dL (70-110)
[2021-07-04] MEDS: acetaminophen 325 mg Tablet 650 MG PO ×2 (09:16→19:15)
[2021-07-04] MEDS: metoprolol tartrate 25 mg Tablet 12.5 MG PO ×2 (09:17→17:49)
[2021-07-04] MEDS: lidocaine 5% Patch 1 PATCH TOPICAL ×2 (09:17→21:00)
[2021-07-04] MEDS: phosphorus 250 mg Tablet PO ×2 (09:17→17:49)
[2021-07-04] MEDS: PARoxetine 20 mg Tablet PO (09:17)
[2021-07-04] MEDS: multivitamin therapeutic Tablet 1 TAB PO (09:17)
[2021-07-04] MEDS: pantoprazole DR 40 mg Tablet PO (09:17)
[2021-07-04] MEDS: gabapentin 100 mg Capsule PO ×3 (09:17→20:55)
[2021-07-04 11:00] LABS: Glucose Point of Care 282 mg/dL (70-110)
[2021-07-04] MEDS: insulin lispro 100 unit/1 mL SUBCUT ×2 (12:59→20:56)
--- NOTE | 2021-07-04 13:26 | P.PN_ITS ---
Subjective Subjective: Interval history: Patient was seen and examined this morning, no acute events overnight, overall she is doing better. Her other vitals and labs have been reviewed Medications: Medication Review Details: Generic Name Dose Route Start Last Admin Trade Name [place] PRN Reason Stop Dose Admin Acetaminophen 650 mg 06/27/21 02:38 07/03/21 12:11 Acetaminophen 32 5 Mg Tablet PO 650 mg Q6H PRN Administration Mild/Mod Pain Or Temp >/= 101 Dextrose 25 ml 06/27/21 02:38 06/30/21 06:13 Dextrose 50% Syr saundra 50 Ml IVP 25 ml ONCE PRN Administration hypoglycemia prot ocol Protocol Dextrose 50 ml 06/27/21 02:38 06/28/21 03:38 Dextrose 50% Syr saundra 50 Ml IVP 50 ml PRN PRN Administration hypoglycemia prot ocol Protocol Enoxaparin Sodium 40 mg 06/27/21 02:45 07/03/21 02:32 Enoxaparin 40 Mg /0.4 Ml Syringe SUBCUT 40 mg Q24H SHARON Administration Gabapentin 100 mg 06/27/21 09:00 07/03/21 08:15 Gabapentin 100 M g Capsule PO 100 mg TID SHARON Administration Dextrose 500 mls @ 100 mls /hr 06/27/21 02:38 06/28/21 09:36 D5w IV Infused ONCE PRN Infusion Adult Acute Hypog lycemia Prot Protocol Insulin Detemir 5 unit 06/27/21 09:00 07/03/21 08:15 Insulin Detemir 100 Units/1 Ml SUBCUT 5 unit Q12H SHARON Administration Insulin Human Lisp ro 0 unit 06/27/21 08:00 07/03/21 12:11 Insulin Lispro 1 00 Unit/1 Ml SUBCUT 6 unit WM&BEDTIME SHARON Administration Protocol Lidocaine 1 patch 06/27/21 09:00 07/03/21 08:16 Lidocaine 5% Pat ch TOPICAL 1 patch [id number] SHARON Administration Loperamide HCl 2 mg 06/29/21 16:30 07/01/21 20:30 Loperamide 2 Mg Capsule PO 2 mg QID PRN Administration DIARRHEA Metoprolol Tartrat e 12.5 mg 06/27/21 09:00 07/03/21 08:15 Metoprolol Tartr ate 25 Mg Tablet PO 12.5 mg BID SHARON Administration Mirtazapine 7.5 mg 06/30/21 21:00 07/02/21 21:24 Mirtazapine 15 M g Tablet PO 7.5 mg BEDTIME SHARON Administration Multivitamins Ther apeutic 1 tab 06/27/21 15:00 07/03/21 08:15 Multivitamin The rapeutic Tablet PO 1 tab DAILY SHARON Administration Pantoprazole Sodiu m 40 mg 06/27/21 09:00 07/03/21 08:[address] 40 Mg Tablet PO 40 mg DAILY SHARON Administration Paroxetine HCl 20 mg 06/27/21 09:00 07/03/21 08:15 Paroxetine 20 Mg Tablet PO 20 mg DAILY SHARON Administration Potassium Phosphat e 250 mg 06/27/21 18:00 07/03/21 08:15 Phosphorus 250 M g Tablet PO 250 mg BID SHARON Administration Tramadol HCl 50 mg 06/27/21 06:34 06/29/21 20:18 Tramadol 50 Mg T ablet PO 50 mg Q6H PRN Administration PAIN Vitals/I&O/Wt Last Vital Signs Temp 98.2 F 07/04/21 11:59 Pulse 98 07/04/21 11:59 Resp 16 07/04/21 11:59 BP 128/74 07/04/21 11:59 Pulse Ox 94 07/04/21 11:59 07/03/21 07/04/21 07/04/21 22:59 06:59 14:59 Intake Total 720 / 1320 320 / 1640 1440 / 1440 Output Total 300 / 500 180 / 680 Balance 420 / 820 140 / 960 1440 / 1440 Physical Exam Const: COMMON NORMALS: patient oriented x3 HENMT: COMMON NORMALS: normocephalic and atraumatic HEAD & SCALP: normocephalic and atraumatic Chest: COMMONS NORMALS: normal palpation of entire chest wall CHEST: Yes Symmetrical chest wall rise Resp: COMMON NORMALS: normal respiratory effort, No retractions, No use of accessory muscles and clear to auscultation bilaterally EFFORT & INSPECTION: Yes symmetric chest movement AUSCULTATION: clear to auscultation bilaterally Cardio: COMMON NORMALS: regular rate, regular rhythm, S1 normal heart sound present, S2 normal heart sound present, No gallops present (Cardio), No murmurs present (Cardio), No rub (Cardio) and Peripheral pulses 2+ throughout RATE: regular rate RHYTHM: regular rhythm HEART SOUNDS: S1 normal heart sound present and S2 normal heart sound present PERIPHERAL PULSES: Peripheral pulses 2+ throughout GI: COMMON NORMALS: Normal to inspection, nondistended, normoactive bowel sounds present, Soft to palpation, non-tender, No hepatosplenomegaly present and no masses AUSCULTATION: Yes normoactive bowel sounds PALPATION: Yes Soft to palpation and Yes No hepatosplenomegaly present RECTAL EXAM: deferred : COMMON NORMALS: Yes no CVA tenderness BLADDER/KIDNEY EXAM: Yes no CVA tenderness Back/Pelvis: COMMON NORMALS: no CVA tenderness Extremity: COMMON NORMALS: no clubbing, cyanosis or edema and no pedal edema Neuro: COMMON NORMALS: patient oriented x3 Data : 07/04/21 04:34 07/04/21 04:34 A&P Assessment and plan (1) Depression: Status: Acute Qualifiers: Active/Remission status: currently active Depression Type: major depressive disorder Major depression episode severity: severe Major depression recurrence: recurrent Psychotic features: without psychotic features Qualified Code(s): F33.2 - Major depressive disorder, recurrent severe without psychotic features (2) Adult failure to thrive: Status: Acute (3) Dehydration: Status: Acute (4) Hyperglycemia: Status: Acute (5) Homeless: Status: Acute (6) Decubitus ulcers: Status: Acute Qualifiers: Pressure injury location: buttock (7) Severe protein-calorie malnutrition: Status: Acute (8) Type 1 diabetes mellitus: Status: Acute Qualifiers: Diabetes mellitus complication status: with hyperglycemia Qualified Code(s): E10.65 - Type 1 diabetes mellitus with hyperglycemia (9) Generalized weakness: Status: Acute (10) Hypokalemia: Status: Acute Additional A&P Information 41 year old lady with protein calorie malnutrition, BMI 12, presenting today with hyperglycemia (has not taken insulin in a month), dehydration, cachexia. Admit to med/surg Continue Levemir to 5 units twice daily, will stop fluids Insulin sliding scale, no current signs of DKA/ HHS, check Hba1c 19 CT chest abdomen and pelvis without signs of malignancy, denies any dysphagia, states poor po intake is due to depression and deconditioning Nutrition consult,, PT/OT evaluaton Encourage p.o. intake, calorie intake as per nutrition, Ensure drinks TSH within normal limits Depression, continue home paroxetine, add Remeron at nighttime, continue Xanax, consult psychiatry HIV, acute hep panel negative, order celiac and KELLY panel Hypokalemia, within normal limits, Hypomagnesemia, continue to monitor, will replace Hypophosphatemia, continue to monitor Diarrhea, stool studies so far unremarkable start loperamide Patient will likely need residential placement Decubitus ulcers, wound care Attestations Medical Necessity Statement*: Patient needs to be in hospital for management of failure to thrive, currently awaiting residential placement. 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
[2021-07-04 14:08] LABS: THYROID PEROXIDASE ANTIBODIES <1 IU/mL (<9)
[2021-07-04 16:19] LABS: ANA SCREEN, IFA NEGATIVE (NEGATIVE)
[2021-07-04 16:31] LABS: CENTROMERE B ANTIBODY <1.0 NEG AI (<1.0 NEG); JO-1 ANTIBODY <1.0 NEG AI (<1.0 NEG); RNP ANTIBODY <1.0 NEG AI (<1.0 NEG); SCL-70 ANTIBODY <1.0 NEG AI (<1.0 NEG); SJOGREN'S ANTIBODY (SS-A) <1.0 NEG AI (<1.0 NEG); SM ANTIBODY <1.0 NEG AI (<1.0 NEG); SS-B <1.0 NEG AI (<1.0 NEG)
[2021-07-04 17:16] LABS: Glucose Point of Care 140 mg/dL (70-110)
[2021-07-04] MEDS: mirtazapine 15 mg Tablet 7.5 MG PO (20:56)
[2021-07-04 21:07] LABS: Glucose Point of Care 352 mg/dL (70-110)
[2021-07-05] VITALS (7 sets, daily range): BP systolic 120–134; BP diastolic 62–76; PULSE 72–102; RESP 16–18; TEMP 36.6–36.8; O2SAT 94–98
[2021-07-05 01:49] LABS: Glucose Point of Care 179 mg/dL (70-110)
[2021-07-05] MEDS: enoxaparin 40 mg/0.4 mL Syringe SUBCUT (03:21)
[2021-07-05 06:43] LABS: Glucose Point of Care 125 mg/dL (70-110)
[2021-07-05 06:43] LABS: Tissue Transglutaminase IgA Ab <1.0 U/mL; Tissue transglutaminase Ab.IgG <1.0 U/mL
[2021-07-05 06:47] LABS: Gliadin Ab.IgA <1.0 U/mL; Gliadin Ab.IgG <1.0 U/mL
[2021-07-05] MEDS: metoprolol tartrate 25 mg Tablet 12.5 MG PO ×2 (09:11→17:37)
[2021-07-05] MEDS: phosphorus 250 mg Tablet PO ×2 (09:11→17:37)
[2021-07-05] MEDS: pantoprazole DR 40 mg Tablet PO (09:12)
[2021-07-05] MEDS: PARoxetine 20 mg Tablet PO (09:12)
[2021-07-05] MEDS: multivitamin therapeutic Tablet 1 TAB PO (09:12)
[2021-07-05] MEDS: lidocaine 5% Patch 1 PATCH TOPICAL ×2 (09:12→22:15)
[2021-07-05] MEDS: gabapentin 100 mg Capsule PO ×3 (09:12→22:15)
[2021-07-05 11:39] LABS: Glucose Point of Care 316 mg/dL (70-110)
[2021-07-05] MEDS: insulin lispro 100 unit/1 mL SUBCUT ×2 (11:42→22:16)
--- NOTE | 2021-07-05 15:19 | PM.PN ---
Subjective Subjective: Interval history: Patient was seen and examined this morning, no acute events overnight, overall she is doing better. Her other vitals and labs have been reviewed Medications: Medication Review Details: Generic Name Dose Route Start Last Admin Trade Name [place] PRN Reason Stop Dose Admin Acetaminophen 650 mg 06/27/21 02:38 07/03/21 12:11 Acetaminophen 32 5 Mg Tablet PO 650 mg Q6H PRN Administration Mild/Mod Pain Or Temp >/= 101 Dextrose 25 ml 06/27/21 02:38 06/30/21 06:13 Dextrose 50% Syr saundra 50 Ml IVP 25 ml ONCE PRN Administration hypoglycemia prot ocol Protocol Dextrose 50 ml 06/27/21 02:38 06/28/21 03:38 Dextrose 50% Syr saundra 50 Ml IVP 50 ml PRN PRN Administration hypoglycemia prot ocol Protocol Enoxaparin Sodium 40 mg 06/27/21 02:45 07/03/21 02:32 Enoxaparin 40 Mg /0.4 Ml Syringe SUBCUT 40 mg Q24H SHARON Administration Gabapentin 100 mg 06/27/21 09:00 07/03/21 08:15 Gabapentin 100 M g Capsule PO 100 mg TID SHARON Administration Dextrose 500 mls @ 100 mls /hr 06/27/21 02:38 06/28/21 09:36 D5w IV Infused ONCE PRN Infusion Adult Acute Hypog lycemia Prot Protocol Insulin Detemir 5 unit 06/27/21 09:00 07/03/21 08:15 Insulin Detemir 100 Units/1 Ml SUBCUT 5 unit Q12H SHARON Administration Insulin Human Lisp ro 0 unit 06/27/21 08:00 07/03/21 12:11 Insulin Lispro 1 00 Unit/1 Ml SUBCUT 6 unit WM&BEDTIME SHARON Administration Protocol Lidocaine 1 patch 06/27/21 09:00 07/03/21 08:16 Lidocaine 5% Pat ch TOPICAL 1 patch [id number] SHARON Administration Loperamide HCl 2 mg 06/29/21 16:30 07/01/21 20:30 Loperamide 2 Mg Capsule PO 2 mg QID PRN Administration DIARRHEA Metoprolol Tartrat e 12.5 mg 06/27/21 09:00 07/03/21 08:15 Metoprolol Tartr ate 25 Mg Tablet PO 12.5 mg BID SHARON Administration Mirtazapine 7.5 mg 06/30/21 21:00 07/02/21 21:24 Mirtazapine 15 M g Tablet PO 7.5 mg BEDTIME SHARON Administration Multivitamins Ther apeutic 1 tab 06/27/21 15:00 07/03/21 08:15 Multivitamin The rapeutic Tablet PO 1 tab DAILY SHARON Administration Pantoprazole Sodiu m 40 mg 06/27/21 09:00 07/03/21 08:[address] 40 Mg Tablet PO 40 mg DAILY SHARON Administration Paroxetine HCl 20 mg 06/27/21 09:00 07/03/21 08:15 Paroxetine 20 Mg Tablet PO 20 mg DAILY SHARON Administration Potassium Phosphat e 250 mg 06/27/21 18:00 07/03/21 08:15 Phosphorus 250 M g Tablet PO 250 mg BID SHARON Administration Tramadol HCl 50 mg 06/27/21 06:34 06/29/21 20:18 Tramadol 50 Mg T ablet PO 50 mg Q6H PRN Administration PAIN Vitals/I&O/Wt Last Vital Signs Temp 97.9 F 07/05/21 12:00 Pulse 95 07/05/21 12:00 Resp 18 07/05/21 12:00 BP 128/72 07/05/21 12:00 Pulse Ox 95 07/05/21 12:00 07/05/21 07/05/21 07/05/21 06:59 14:59 22:59 Intake Total 240 / 2160 480 / 480 Output Total 1440 / 1640 Balance -1200 / 520 480 / 480 Physical Exam Const: COMMON NORMALS: patient oriented x3 HENMT: COMMON NORMALS: normocephalic and atraumatic HEAD & SCALP: normocephalic and atraumatic Chest: COMMONS NORMALS: normal palpation of entire chest wall CHEST: Yes Symmetrical chest wall rise Resp: COMMON NORMALS: normal respiratory effort, No retractions, No use of accessory muscles and clear to auscultation bilaterally EFFORT & INSPECTION: Yes symmetric chest movement AUSCULTATION: clear to auscultation bilaterally Cardio: COMMON NORMALS: regular rate, regular rhythm, S1 normal heart sound present, S2 normal heart sound present, No gallops present (Cardio), No murmurs present (Cardio), No rub (Cardio) and Peripheral pulses 2+ throughout RATE: regular rate RHYTHM: regular rhythm HEART SOUNDS: S1 normal heart sound present and S2 normal heart sound present PERIPHERAL PULSES: Peripheral pulses 2+ throughout GI: COMMON NORMALS: Normal to inspection, nondistended, normoactive bowel sounds present, Soft to palpation, non-tender, No hepatosplenomegaly present and no masses AUSCULTATION: Yes normoactive bowel sounds PALPATION: Yes Soft to palpation and Yes No hepatosplenomegaly present RECTAL EXAM: deferred : COMMON NORMALS: Yes no CVA tenderness BLADDER/KIDNEY EXAM: Yes no CVA tenderness Back/Pelvis: COMMON NORMALS: no CVA tenderness Extremity: COMMON NORMALS: no clubbing, cyanosis or edema and no pedal edema Neuro: COMMON NORMALS: patient oriented x3 Data : 07/04/21 04:34 07/04/21 04:34 A&P Assessment and plan (1) Depression: Status: Acute Qualifiers: Active/Remission status: currently active Depression Type: major depressive disorder Major depression episode severity: severe Major depression recurrence: recurrent Psychotic features: without psychotic features Qualified Code(s): F33.2 - Major depressive disorder, recurrent severe without psychotic features (2) Adult failure to thrive: Status: Acute (3) Dehydration: Status: Acute (4) Hyperglycemia: Status: Acute (5) Homeless: Status: Acute (6) Decubitus ulcers: Status: Acute Qualifiers: Pressure injury location: buttock (7) Severe protein-calorie malnutrition: Status: Acute (8) Type 1 diabetes mellitus: Status: Acute Qualifiers: Diabetes mellitus complication status: with hyperglycemia Qualified Code(s): E10.65 - Type 1 diabetes mellitus with hyperglycemia (9) Generalized weakness: Status: Acute (10) Hypokalemia: Status: Acute Additional A&P Information 41 year old lady with protein calorie malnutrition, BMI 12, presenting today with hyperglycemia (has not taken insulin in a month), dehydration, cachexia. Admit to med/surg Continue Levemir to 5 units twice daily, will stop fluids Insulin sliding scale, no current signs of DKA/ HHS, check Hba1c 19 CT chest abdomen and pelvis without signs of malignancy, denies any dysphagia, states poor po intake is due to depression and deconditioning Nutrition consult,, PT/OT evaluaton Encourage p.o. intake, calorie intake as per nutrition, Ensure drinks TSH within normal limits Depression, continue home paroxetine, add Remeron at nighttime, continue Xanax, consult psychiatry HIV, acute hep panel negative, order celiac and KELLY panel Hypokalemia, within normal limits, Hypomagnesemia, continue to monitor, will replace Hypophosphatemia, continue to monitor Diarrhea, stool studies so far unremarkable start loperamide Patient will likely need [facility]iary placement Decubitus ulcers, wound care Attestations Medical Necessity Statement*: Patient has no medical needs to stay in the hospital, currently she is awaiting placement 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 of Care Code Acute Center Consultant for g Fwd Exam Comprehensive Diagnoses Depression F33.2 Active/Remission status: currently active Depression Type: major depressive disorder Major depression episode severity: severe Major depression recurrence: recurrent Psychotic features: without psychotic features Adult failure to thrive R62.7 Dehydration E86.0 Hyperglycemia R73.9 Homeless Z59.00 Decubitus ulcers L89.90 Pressure injury location: buttock Severe protein-calorie malnutrition E43 Type 1 diabetes mellitus E10.65 Diabetes mellitus complication status: with hyperglycemia Generalized weakness R53.1 Hypokalemia E87.6
[2021-07-05 16:52] LABS: Glucose Point of Care 134 mg/dL (70-110)
[2021-07-05] MEDS: acetaminophen 325 mg Tablet 650 MG PO (17:40)
[2021-07-05 21:18] LABS: Glucose Point of Care 424 mg/dL (70-110)
[2021-07-05] MEDS: mirtazapine 15 mg Tablet 7.5 MG PO (22:15)
[2021-07-06] MEDS: enoxaparin 40 mg/0.4 mL Syringe SUBCUT (02:20)
[2021-07-06 03:06] VITALS: BP 113/58; PULSE 80; RESP 17; TEMP 36.6; O2SAT 93
[2021-07-06 06:45] LABS: Glucose Point of Care 95 mg/dL (70-110)
[2021-07-06 07:25] VITALS: BP 148/86; PULSE 86; RESP 14; TEMP 36.9; O2SAT 98
[2021-07-06] MEDS: PARoxetine 20 mg Tablet PO (09:32)
[2021-07-06] MEDS: phosphorus 250 mg Tablet PO ×2 (09:32→18:03)
[2021-07-06] MEDS: metoprolol tartrate 25 mg Tablet 12.5 MG PO ×2 (09:32→18:04)
[2021-07-06] MEDS: lidocaine 5% Patch 1 PATCH TOPICAL ×2 (09:32→21:23)
[2021-07-06] MEDS: multivitamin therapeutic Tablet 1 TAB PO (09:32)
[2021-07-06] MEDS: gabapentin 100 mg Capsule PO ×3 (09:32→21:23)
[2021-07-06] MEDS: pantoprazole DR 40 mg Tablet PO (09:32)
[2021-07-06 11:03] VITALS: BP 155/84; PULSE 82; RESP 16; TEMP 37.6; O2SAT 98
[2021-07-06 11:46] LABS: Glucose Point of Care 200 mg/dL (70-110)
[2021-07-06] MEDS: insulin lispro 100 unit/1 mL SUBCUT ×3 (13:30→21:24)
[2021-07-06 15:02] LABS: DNA AB (DS) CRITHIDIA,IFA NEGATIVE (NEGATIVE)
[2021-07-06 15:09] VITALS: BP 174/92; PULSE 79; RESP 16; TEMP 37.1; O2SAT 98
--- NOTE | 2021-07-06 15:50 | P.PN_ITS ---
Subjective Subjective: Interval history: Patient was seen and examined this morning, no acute events overnight, overall she is doing better. Her other vitals and labs have been reviewed Medications: Medication Review Details: Generic Name Dose Route Start Last Admin Trade Name [place] PRN Reason Stop Dose Admin Acetaminophen 650 mg 06/27/21 02:38 07/03/21 12:11 Acetaminophen 32 5 Mg Tablet PO 650 mg Q6H PRN Administration Mild/Mod Pain Or Temp >/= 101 Dextrose 25 ml 06/27/21 02:38 06/30/21 06:13 Dextrose 50% Syr saundra 50 Ml IVP 25 ml ONCE PRN Administration hypoglycemia prot ocol Protocol Dextrose 50 ml 06/27/21 02:38 06/28/21 03:38 Dextrose 50% Syr saundra 50 Ml IVP 50 ml PRN PRN Administration hypoglycemia prot ocol Protocol Enoxaparin Sodium 40 mg 06/27/21 02:45 07/03/21 02:32 Enoxaparin 40 Mg /0.4 Ml Syringe SUBCUT 40 mg Q24H SHARON Administration Gabapentin 100 mg 06/27/21 09:00 07/03/21 08:15 Gabapentin 100 M g Capsule PO 100 mg TID SHARON Administration Dextrose 500 mls @ 100 mls /hr 06/27/21 02:38 06/28/21 09:36 D5w IV Infused ONCE PRN Infusion Adult Acute Hypog lycemia Prot Protocol Insulin Detemir 5 unit 06/27/21 09:00 07/03/21 08:15 Insulin Detemir 100 Units/1 Ml SUBCUT 5 unit Q12H SHARON Administration Insulin Human Lisp ro 0 unit 06/27/21 08:00 07/03/21 12:11 Insulin Lispro 1 00 Unit/1 Ml SUBCUT 6 unit WM&BEDTIME SHARON Administration Protocol Lidocaine 1 patch 06/27/21 09:00 07/03/21 08:16 Lidocaine 5% Pat ch TOPICAL 1 patch [id number] SHARON Administration Loperamide HCl 2 mg 06/29/21 16:30 07/01/21 20:30 Loperamide 2 Mg Capsule PO 2 mg QID PRN Administration DIARRHEA Metoprolol Tartrat e 12.5 mg 06/27/21 09:00 07/03/21 08:15 Metoprolol Tartr ate 25 Mg Tablet PO 12.5 mg BID SHARON Administration Mirtazapine 7.5 mg 06/30/21 21:00 07/02/21 21:24 Mirtazapine 15 M g Tablet PO 7.5 mg BEDTIME SHARON Administration Multivitamins Ther apeutic 1 tab 06/27/21 15:00 07/03/21 08:15 Multivitamin The rapeutic Tablet PO 1 tab DAILY SHARON Administration Pantoprazole Sodiu m 40 mg 06/27/21 09:00 07/03/21 08:[address] 40 Mg Tablet PO 40 mg DAILY SHARON Administration Paroxetine HCl 20 mg 06/27/21 09:00 07/03/21 08:15 Paroxetine 20 Mg Tablet PO 20 mg DAILY SHARON Administration Potassium Phosphat e 250 mg 06/27/21 18:00 07/03/21 08:15 Phosphorus 250 M g Tablet PO 250 mg BID SHARON Administration Tramadol HCl 50 mg 06/27/21 06:34 06/29/21 20:18 Tramadol 50 Mg T ablet PO 50 mg Q6H PRN Administration PAIN Vitals/I&O/Wt Last Vital Signs Temp 98.8 F 07/06/21 15:09 Pulse 79 07/06/21 15:09 Resp 16 07/06/21 15:09 BP 174/92 07/06/21 15:09 Pulse Ox 98 07/06/21 15:09 07/06/21 07/06/21 07/06/21 06:59 14:59 22:59 Intake Total 640 / 2320 480 / 480 Output Total 460 / 2860 Balance 180 / -540 480 / 480 Physical Exam Const: COMMON NORMALS: patient oriented x3 HENMT: COMMON NORMALS: normocephalic and atraumatic HEAD & SCALP: normocephalic and atraumatic Chest: COMMONS NORMALS: normal palpation of entire chest wall CHEST: Yes Symmetrical chest wall rise Resp: COMMON NORMALS: normal respiratory effort, No retractions, No use of accessory muscles and clear to auscultation bilaterally EFFORT & INSPECTION: Yes symmetric chest movement AUSCULTATION: clear to auscultation bilaterally Cardio: COMMON NORMALS: regular rate, regular rhythm, S1 normal heart sound present, S2 normal heart sound present, No gallops present (Cardio), No murmurs present (Cardio), No rub (Cardio) and Peripheral pulses 2+ throughout RATE: regular rate RHYTHM: regular rhythm HEART SOUNDS: S1 normal heart sound present and S2 normal heart sound present PERIPHERAL PULSES: Peripheral pulses 2+ throughout GI: COMMON NORMALS: Normal to inspection, nondistended, normoactive bowel sounds present, Soft to palpation, non-tender, No hepatosplenomegaly present and no masses AUSCULTATION: Yes normoactive bowel sounds PALPATION: Yes Soft to palpation and Yes No hepatosplenomegaly present RECTAL EXAM: deferred : COMMON NORMALS: Yes no CVA tenderness BLADDER/KIDNEY EXAM: Yes no CVA tenderness Back/Pelvis: COMMON NORMALS: no CVA tenderness Extremity: COMMON NORMALS: no clubbing, cyanosis or edema and no pedal edema Neuro: COMMON NORMALS: patient oriented x3 Data : 07/04/21 04:34 07/04/21 04:34 A&P Assessment and plan (1) Depression: Status: Acute Qualifiers: Active/Remission status: currently active Depression Type: major depressive disorder Major depression episode severity: severe Major depression recurrence: recurrent Psychotic features: without psychotic features Qualified Code(s): F33.2 - Major depressive disorder, recurrent severe without psychotic features (2) Adult failure to thrive: Status: Acute (3) Dehydration: Status: Acute (4) Hyperglycemia: Status: Acute (5) Homeless: Status: Acute (6) Decubitus ulcers: Status: Acute Qualifiers: Pressure injury location: buttock (7) Severe protein-calorie malnutrition: Status: Acute (8) Type 1 diabetes mellitus: Status: Acute Qualifiers: Diabetes mellitus complication status: with hyperglycemia Qualified Cod e(s): E10.65 - Type 1 diabetes mellitus with hyperglycemia (9) Generalized weakness: Status: Acute (10) Hypokalemia: Status: Acute Additional A&P Information 41 year old lady with protein calorie malnutrition, BMI 12, presenting today with hyperglycemia (has not taken insulin in a month), dehydration, cachexia. Admit to med/surg Continue Levemir to 5 units twice daily, will stop fluids Insulin sliding scale, no current signs of DKA/ HHS, check Hba1c 19 CT chest abdomen and pelvis without signs of malignancy, denies any dysphagia, states poor po intake is due to depression and deconditioning Nutrition consult,, PT/OT evaluaton Encourage p.o. intake, calorie intake as per nutrition, Ensure drinks TSH within normal limits Depression, continue home paroxetine, add Remeron at nighttime, continue Xanax, consult psychiatry HIV, acute hep panel negative, order celiac and KELLY panel Hypokalemia, within normal limits, Hypomagnesemia, continue to monitor, will replace Hypophosphatemia, continue to monitor Diarrhea, stool studies so far unremarkable start loperamide Patient will likely need [place] [facility] Decubitus ulcers, wound care Attestations Medical Necessity Statement*: Patient is currently awaiting placement. 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 of Care Code Acute Offset Press Operator for [facility] Yajaira Diagnoses Depression F33.2 Active/Remission status: currently active Depression Type: major depressive disorder Major depression episode severity: severe Major depression recurrence: recurrent Psychotic features: without psychotic features Adult failure to thrive R62.7 Dehydration E86.0 Hyperglycemia R73.9 Homeless Z59.00 Decubitus ulcers L89.90 Pressure injury location: buttock Severe protein-calorie malnutrition E43 Type 1 diabetes mellitus E10.65 Diabetes mellitus complication status: with hyperglycemia Generalized weakness R53.1 Hypokalemia E87.6
[2021-07-06 16:30] LABS: Glucose Point of Care 400 mg/dL (70-110)
[2021-07-06 16:30] LABS: Glucose Point of Care 524 mg/dL (70-110)
[2021-07-06] MEDS: acetaminophen 325 mg Tablet 650 MG PO (18:06)
[2021-07-06 18:22] LABS: Glucose 373 mg/dL (65-115)
[2021-07-06 19:28] VITALS: BP 150/81; PULSE 89; RESP 17; TEMP 37.4; O2SAT 97
[2021-07-06 20:30] LABS: Glucose Point of Care 285 mg/dL (70-110)
[2021-07-06] MEDS: mirtazapine 15 mg Tablet 7.5 MG PO (21:23)
[2021-07-07] VITALS: BP 105/65; PULSE 73; RESP 16; TEMP 36.5; O2SAT 97
[2021-07-07] MEDS: enoxaparin 40 mg/0.4 mL Syringe SUBCUT (01:54)
[2021-07-07 04:00] VITALS: BP 109/67; PULSE 75; RESP 17; TEMP 36.6; O2SAT 99
[2021-07-07 06:37] LABS: Glucose Point of Care 115 mg/dL (70-110)
[2021-07-07 06:59] LABS: Basophils # 0.1 10^3/uL (0.0-0.1); Basophils % 0.9 %; Eosinophils # 0.1 10^3/uL (0.0-0.8); Eosinophils % 1.4 %; Hematocrit 40.7 % (37.0-47.0); Hemoglobin 12.4 g/dL (11.5-15.3); Lymphocytes # 2.7 10^3/uL (0.8-4.8); Lymphocytes % 39.3 %; Mean Corpuscular HGB Conc 30.5 g/dL (30.0-36.0); Mean Corpuscular Hemoglobin 27.6 pg (28.0-34.0); Mean Corpuscular Volume 90.6 fl (81-99); Mean Platelet Volume 9.7 fL (7.4-10.4); Monocytes # 0.5 10^3/uL (0.2-0.9); Monocytes % 7.5 %; Neutrophils # 3.51 10^3/uL (1.8-7.7); Neutrophils % 50.8 %; Nucleated Red Blood Cells % 0 %; Platelet Count 313 10^3/cmm (130-400); Red Blood Count 4.49 10^6/uL (4.1-5.3); Red Cell Distribution Width 14.4 % (12.1-15.1); White Blood Count 6.9 10^3/uL (4.0-10.0)
[2021-07-07 07:08] VITALS: BP 120/74; PULSE 97; RESP 18; TEMP 36.7; O2SAT 96
[2021-07-07 07:13] LABS: Anion Gap 13.8 (5-19); Blood Urea Nitrogen 25 mg/dL (6-20); Calcium 9.2 mg/dL (8.5-10.5); Carbon Dioxide 29 mmol/L (22-29); Chloride 103 mmol/L (98-107); Glomerular Filtration Rate 110.7 mL/min (90-130); Glucose 108 mg/dL (65-115); Osmolality Calculated 297 mOsm/kg (285-295); Potassium 4.8 mmol/L (3.5-5.1); Sodium 141 mmol/L (136-145)
[2021-07-07] MEDS: pantoprazole DR 40 mg Tablet PO (08:37)
[2021-07-07] MEDS: phosphorus 250 mg Tablet PO ×2 (08:37→17:50)
[2021-07-07] MEDS: multivitamin therapeutic Tablet 1 TAB PO (08:37)
[2021-07-07] MEDS: PARoxetine 20 mg Tablet PO (08:37)
[2021-07-07] MEDS: gabapentin 100 mg Capsule PO ×3 (08:37→21:21)
[2021-07-07] MEDS: metoprolol tartrate 25 mg Tablet 12.5 MG PO ×2 (08:38→17:51)
[2021-07-07] MEDS: lidocaine 5% Patch 1 PATCH TOPICAL ×2 (08:38→21:21)
[2021-07-07 10:49] LABS: Glucose Point of Care 269 mg/dL (70-110)
[2021-07-07 11:28] VITALS: BP 109/72; PULSE 98; RESP 16; TEMP 36.7; O2SAT 97
[2021-07-07] MEDS: insulin lispro 100 unit/1 mL SUBCUT ×2 (11:34→21:21)
[2021-07-07] MEDS: acetaminophen 325 mg Tablet 650 MG PO (11:35)
--- NOTE | 2021-07-07 15:18 | P.PN_ITS ---
Subjective Subjective: Interval history: Patient was seen and examined this morning, no acute events overnight, overall she is doing better. Her other vitals and labs have been reviewed Medications: Medication Review Details: Generic Name Dose Route Start Last Admin Trade Name [place] PRN Reason Stop Dose Admin Acetaminophen 650 mg 06/27/21 02:38 07/03/21 12:11 Acetaminophen 32 5 Mg Tablet PO 650 mg Q6H PRN Administration Mild/Mod Pain Or Temp >/= 101 Dextrose 25 ml 06/27/21 02:38 06/30/21 06:13 Dextrose 50% Syr sanudra 50 Ml IVP 25 ml ONCE PRN Administration hypoglycemia prot ocol Protocol Dextrose 50 ml 06/27/21 02:38 06/28/21 03:38 Dextrose 50% Syr saundra 50 Ml IVP 50 ml PRN PRN Administration hypoglycemia prot ocol Protocol Enoxaparin Sodium 40 mg 06/27/21 02:45 07/03/21 02:32 Enoxaparin 40 Mg /0.4 Ml Syringe SUBCUT 40 mg Q24H SHARON Administration Gabapentin 100 mg 06/27/21 09:00 07/03/21 08:15 Gabapentin 100 M g Capsule PO 100 mg TID SHARON Administration Dextrose 500 mls @ 100 mls /hr 06/27/21 02:38 06/28/21 09:36 D5w IV Infused ONCE PRN Infusion Adult Acute Hypog lycemia Prot Protocol Insulin Detemir 5 unit 06/27/21 09:00 07/03/21 08:15 Insulin Detemir 100 Units/1 Ml SUBCUT 5 unit Q12H SHARON Administration Insulin Human Lisp ro 0 unit 06/27/21 08:00 07/03/21 12:11 Insulin Lispro 1 00 Unit/1 Ml SUBCUT 6 unit WM&BEDTIME SHARON Administration Protocol Lidocaine 1 patch 06/27/21 09:00 07/03/21 08:16 Lidocaine 5% Pat ch TOPICAL 1 patch [id number] SHARON Administration Loperamide HCl 2 mg 06/29/21 16:30 07/01/21 20:30 Loperamide 2 Mg Capsule PO 2 mg QID PRN Administration DIARRHEA Metoprolol Tartrat e 12.5 mg 06/27/21 09:00 07/03/21 08:15 Metoprolol Tartr ate 25 Mg Tablet PO 12.5 mg BID SHARON Administration Mirtazapine 7.5 mg 06/30/21 21:00 07/02/21 21:24 Mirtazapine 15 M g Tablet PO 7.5 mg BEDTIME SHARON Administration Multivitamins Ther apeutic 1 tab 06/27/21 15:00 07/03/21 08:15 Multivitamin The rapeutic Tablet PO 1 tab DAILY SHARON Administration Pantoprazole Sodiu m 40 mg 06/27/21 09:00 07/03/21 08:[address] 40 Mg Tablet PO 40 mg DAILY SHARON Administration Paroxetine HCl 20 mg 06/27/21 09:00 07/03/21 08:15 Paroxetine 20 Mg Tablet PO 20 mg DAILY SHARON Administration Potassium Phosphat e 250 mg 06/27/21 18:00 07/03/21 08:15 Phosphorus 250 M g Tablet PO 250 mg BID SHARON Administration Tramadol HCl 50 mg 06/27/21 06:34 06/29/21 20:18 Tramadol 50 Mg T ablet PO 50 mg Q6H PRN Administration PAIN Vitals/I&O/Wt Last Vital Signs Temp 98.1 F 07/07/21 11:28 Pulse 98 07/07/21 11:28 Resp 16 07/07/21 11:28 BP 109/72 07/07/21 11:28 Pulse Ox 97 07/07/21 11:28 07/07/21 07/07/21 07/07/21 06:59 14:59 22:59 Intake Total 480 / 1680 960 / 960 Output Total 800 / 2150 Balance -320 / -470 960 / 960 Physical Exam Const: COMMON NORMALS: patient oriented x3 HENMT: COMMON NORMALS: normocephalic and atraumatic HEAD & SCALP: normocephalic and atraumatic Chest: COMMONS NORMALS: normal palpation of entire chest wall CHEST: Yes Symmetrical chest wall rise Resp: COMMON NORMALS: normal respiratory effort, No retractions, No use of accessory muscles and clear to auscultation bilaterally EFFORT & INSPECTION: Yes symmetric chest movement AUSCULTATION: clear to auscultation bilaterally Cardio: COMMON NORMALS: regular rate, regular rhythm, S1 normal heart sound present, S2 normal heart sound present, No gallops present (Cardio), No murmurs present (Cardio), No rub (Cardio) and Peripheral pulses 2+ throughout RATE: regular rate RHYTHM: regular rhythm HEART SOUNDS: S1 normal heart sound present and S2 normal heart sound present PERIPHERAL PULSES: Peripheral pulses 2+ throughout GI: COMMON NORMALS: Normal to inspection, nondistended, normoactive bowel sounds present, Soft to palpation, non-tender, No hepatosplenomegaly present and no masses AUSCULTATION: Yes normoactive bowel sounds PALPATION: Yes Soft to palpation and Yes No hepatosplenomegaly present RECTAL EXAM: deferred : COMMON NORMALS: Yes no CVA tenderness BLADDER/KIDNEY EXAM: Yes no CVA tenderness Back/Pelvis: COMMON NORMALS: no CVA tenderness Extremity: COMMON NORMALS: no clubbing, cyanosis or edema and no pedal edema Neuro: COMMON NORMALS: patient oriented x3 Data : 07/07/21 05:25 07/07/21 05:25 A&P Assessment and plan (1) Depression: Status: Acute Qualifiers: Active/Remission status: currently active Depression Type: major depressive disorder Major depression episode severity: severe Major depression recurrence: recurrent Psychotic features: without psychotic features Qualified Code(s): F33.2 - Major depressive disorder, recurrent severe without psychotic features (2) Adult failure to thrive: Status: Acute (3) Dehydration: Status: Acute (4) Hyperglycemia: Status: Acute (5) Homeless: Status: Acute (6) Decubitus ulcers: Status: Acute Qualifiers: Pressure injury location: buttock (7) Severe protein-calorie malnutrition: Status: Acute (8) Type 1 diabetes mellitus: Status: Acute Qualifiers: Diabetes mellitus complication status: with hyperglycemia Qualified Co de(s): E10.65 - Type 1 diabetes mellitus with hyperglycemia (9) Generalized weakness: Status: Acute (10) Hypokalemia: Status: Acute Additional A&P Information 41 year old lady with protein calorie malnutrition, BMI 12, presenting today with hyperglycemia (has not taken insulin in a month), dehydration, cachexia. Admit to med/surg Continue Levemir to 5 units twice daily, will stop fluids Insulin sliding scale, no current signs of DKA/ HHS, check Hba1c 19 CT chest abdomen and pelvis without signs of malignancy, denies any dysphagia, states poor po intake is due to depression and deconditioning Nutrition consult,, PT/OT evaluaton Encourage p.o. intake, calorie intake as per nutrition, Ensure drinks TSH within normal limits Depression, continue home paroxetine, add Remeron at nighttime, continue Xanax, consult psychiatry HIV, acute hep panel negative, order celiac and KELLY panel Hypokalemia, within normal limits, Hypomagnesemia, continue to monitor, will replace Hypophosphatemia, continue to monitor Diarrhea, stool studies so far unremarkable start loperamide Patient will likely need residential placement Decubitus ulcers, wound care Attestations Medical Necessity Statement*: Patient is currently awaiting placement. 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 of Care Code Acute Chargemaster Analyst for [facility] Diagnoses Depression F33.2 Active/Remission status: currently active Depression Type: major depressive disorder Major depression episode severity: severe Major depression recurrence: recurrent Psychotic features: without psychotic features Adult failure to thrive R62.7 Dehydration E86.0 Hyperglycemia R73.9 Homeless Z59.00 Decubitus ulcers L89.90 Pressure injury location: buttock Severe protein-calorie malnutrition E43 Type 1 diabetes mellitus E10.65 Diabetes mellitus complication status: with hyperglycemia Generalized weakness R53.1 Hypokalemia E87.6
[2021-07-07 15:27] VITALS: BP 119/67; PULSE 68; RESP 18; TEMP 36.7; O2SAT 93
[2021-07-07 17:00] LABS: Glucose Point of Care 127 mg/dL (70-110)
[2021-07-07 20:00] VITALS: BP 146/64; PULSE 80; RESP 17; TEMP 36.7; O2SAT 97
[2021-07-07] MEDS: mirtazapine 15 mg Tablet 7.5 MG PO (21:21)
[2021-07-07 21:24] LABS: Glucose Point of Care 226 mg/dL (70-110)
[2021-07-08] VITALS (8 sets, daily range): BP systolic 128–163; BP diastolic 71–87; PULSE 77–97; RESP 16–17; TEMP 37–37.3; O2SAT 93–98
[2021-07-08] MEDS: enoxaparin 40 mg/0.4 mL Syringe SUBCUT (02:29)
[2021-07-08] MEDS: gabapentin 100 mg Capsule PO ×2 (08:38→22:01)
[2021-07-08] MEDS: PARoxetine 20 mg Tablet PO (08:38)
[2021-07-08] MEDS: phosphorus 250 mg Tablet PO ×2 (08:38→18:31)
[2021-07-08] MEDS: multivitamin therapeutic Tablet 1 TAB PO (08:38)
[2021-07-08] MEDS: pantoprazole DR 40 mg Tablet PO (08:38)
[2021-07-08] MEDS: metoprolol tartrate 25 mg Tablet 12.5 MG PO ×2 (08:39→18:31)
[2021-07-08] MEDS: lidocaine 5% Patch 1 PATCH TOPICAL ×2 (08:39→21:30)
[2021-07-08 11:48] LABS: Glucose Point of Care 188 mg/dL (70-110)
[2021-07-08] MEDS: acetaminophen 325 mg Tablet 650 MG PO (12:01)
[2021-07-08] MEDS: insulin lispro 100 unit/1 mL SUBCUT ×3 (12:01→22:02)
[2021-07-08 17:26] LABS: Glucose Point of Care 199 mg/dL (70-110)
--- NOTE | 2021-07-08 17:39 | P.PN_ITS ---
Subjective Subjective: Interval history: Patient was seen and examined this morning, no acute events overnight, overall she is doing better. Her other vitals and labs have been reviewed Medications: Medication Review Details: Generic Name Dose Route Start Last Admin Trade Name [place] PRN Reason Stop Dose Admin Acetaminophen 650 mg 06/27/21 02:38 07/03/21 12:11 Acetaminophen 32 5 Mg Tablet PO 650 mg Q6H PRN Administration Mild/Mod Pain Or Temp >/= 101 Dextrose 25 ml 06/27/21 02:38 06/30/21 06:13 Dextrose 50% Syr saundra 50 Ml IVP 25 ml ONCE PRN Administration hypoglycemia prot ocol Protocol Dextrose 50 ml 06/27/21 02:38 06/28/21 03:38 Dextrose 50% Syr saundra 50 Ml IVP 50 ml PRN PRN Administration hypoglycemia prot ocol Protocol Enoxaparin Sodium 40 mg 06/27/21 02:45 07/03/21 02:32 Enoxaparin 40 Mg /0.4 Ml Syringe SUBCUT 40 mg Q24H SHARON Administration Gabapentin 100 mg 06/27/21 09:00 07/03/21 08:15 Gabapentin 100 M g Capsule PO 100 mg TID SHARON Administration Dextrose 500 mls @ 100 mls /hr 06/27/21 02:38 06/28/21 09:36 D5w IV Infused ONCE PRN Infusion Adult Acute Hypog lycemia Prot Protocol Insulin Detemir 5 unit 06/27/21 09:00 07/03/21 08:15 Insulin Detemir 100 Units/1 Ml SUBCUT 5 unit Q12H SHARON Administration Insulin Human Lisp ro 0 unit 06/27/21 08:00 07/03/21 12:11 Insulin Lispro 1 00 Unit/1 Ml SUBCUT 6 unit WM&BEDTIME SHARON Administration Protocol Lidocaine 1 patch 06/27/21 09:00 07/03/21 08:16 Lidocaine 5% Pat ch TOPICAL 1 patch [id number] SHARON Administration Loperamide HCl 2 mg 06/29/21 16:30 07/01/21 20:30 Loperamide 2 Mg Capsule PO 2 mg QID PRN Administration DIARRHEA Metoprolol Tartrat e 12.5 mg 06/27/21 09:00 07/03/21 08:15 Metoprolol Tartr ate 25 Mg Tablet PO 12.5 mg BID SHARON Administration Mirtazapine 7.5 mg 06/30/21 21:00 07/02/21 21:24 Mirtazapine 15 M g Tablet PO 7.5 mg BEDTIME SHARON Administration Multivitamins Ther apeutic 1 tab 06/27/21 15:00 07/03/21 08:15 Multivitamin The rapeutic Tablet PO 1 tab DAILY SHARON Administration Pantoprazole Sodiu m 40 mg 06/27/21 09:00 07/03/21 08:[address] 40 Mg Tablet PO 40 mg DAILY SHARON Administration Paroxetine HCl 20 mg 06/27/21 09:00 07/03/21 08:15 Paroxetine 20 Mg Tablet PO 20 mg DAILY SHARON Administration Potassium Phosphat e 250 mg 06/27/21 18:00 07/03/21 08:15 Phosphorus 250 M g Tablet PO 250 mg BID SHARON Administration Tramadol HCl 50 mg 06/27/21 06:34 06/29/21 20:18 Tramadol 50 Mg T ablet PO 50 mg Q6H PRN Administration PAIN Vitals/I&O/Wt Last Vital Signs Temp 98.9 F 07/08/21 16:00 Pulse 77 07/08/21 16:00 Resp 16 07/08/21 16:00 BP 135/71 07/08/21 16:00 Pulse Ox 98 07/08/21 16:00 07/08/21 07/08/21 07/08/21 06:59 14:59 22:59 Intake Total 240 / 1680 240 / 240 Output Total 120 / 1820 500 / 500 Balance 120 / -140 240 / 240 -500 / -260 Physical Exam Const: COMMON NORMALS: patient oriented x3 HENMT: COMMON NORMALS: normocephalic and atraumatic HEAD & SCALP: norm ocephalic and atraumatic Chest: COMMONS NORMALS: normal palpation of entire chest wall CHEST: Yes Symmetrical chest wall rise Resp: COMMON NORMALS: clear to auscultation bilaterally AUSCULTATION: clear to auscultation bilaterally Cardio: COMMON NORMALS: regular rate, regular rhythm, S1 normal heart sound present, S2 normal heart sound present, No gallops present (Cardio), No murmurs present (Cardio), No rub (Cardio) and Peripheral pulses 2+ throughout RATE: regular rate RHYTHM: regular rhythm HEART SOUNDS: S1 normal heart sound present and S2 normal heart sound present PERIPHERAL PULSES: Peripheral pulses 2+ throughout GI: COMMON NORMALS: Normal to inspection, nondistended, normoactive bowel sounds present, Soft to palpation, non-tender, No hepatosplenomegaly present and no masses AUSCULTATION: Yes normoactive bowel sounds PALPATION: Yes Soft to palpation and Yes No hepatosplenomegaly present RECTAL EXAM: deferred Extremity: COMMON NORMALS: no clubbing, cyanosis or edema and no pedal edema Neuro: COMMON NORMALS: patient oriented x3 Data : 07/07/21 05:25 07/07/21 05:25 A&P Assessment and plan (1) Depression: Status: Acute Qualifiers: Active/Remission status: currently active Depression Type: major depressive disorder Major depression episode severity: severe Major depression recurrence: recurrent Psychotic features: without psychotic features Qualified Code(s): F33.2 - Major depressive disorder, recurrent severe without psychotic features (2) Adult failure to thrive: Status: Acute (3) Dehydration: Status: Acute (4) Hyperglycemia: Status: Acute (5) Homeless: Status: Acute (6) Decubitus ulcers: Status: Acute Qualifiers: Pressure injury location: buttock (7) Severe protein-calorie malnutrition: Status: Acute (8) Type 1 diabetes mellitus: Status: Acute Qualifiers: Diabetes mellitus complication status: with hyperglycemia Qualified Code(s): E10.65 - Type 1 diabetes mellitus with hyperglycemia (9) Generalized weakness: Status: Acute (10) Hypokalemia: Status: Acute Additional A&P Information 41 year old lady with protein calorie malnutrition, BMI 12, presenting today w ith hyperglycemia (has not taken insulin in a month), dehydration, cachexia. Admit to med/surg Continue Levemir to 5 units twice daily, will stop fluids Insulin sliding scale, no current signs of DKA/ HHS, check Hba1c 19 CT chest abdomen and pelvis without signs of malignancy, denies any dysphagia, states poor po intake is due to depression and deconditioning Nutrition consult,, PT/OT evaluaton Encourage p.o. intake, calorie intake as per nutrition, Ensure drinks TSH within normal limits Depression, continue home paroxetine, add Remeron at nighttime, continue Xanax, consult psychiatry HIV, acute hep panel negative, order celiac and KELLY panel Hypokalemia, within normal limits, Hypomagnesemia, continue to monitor, will replace Hypophosphatemia, continue to monitor Diarrhea, stool studies so far unremarkable start loperamide Patient will likely need [facility] placement Decubitus ulcers, wound care Attestations Medical Necessity Statement*: Patient in hospital for placement. 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
[2021-07-08] MEDS: mirtazapine 15 mg Tablet 7.5 MG PO (22:03)
[2021-07-08 22:10] LABS: Glucose Point of Care 360 mg/dL (70-110)
[2021-07-09] VITALS: BP 101/62; PULSE 76; RESP 15; TEMP 36.6; O2SAT 98
--- NOTE | 2021-07-09 01:02 | PC.NURSE ---
2000 Rest[address] in bed. Easily awakens. No ditress. Sprite given per pt request.
--- NOTE | 2021-07-09 01:03 | PC.NURSE ---
2200 Resting in bed. Awakens easily. Snack of peanut butter and emmanuel crackers given.
--- NOTE | 2021-07-09 01:04 | PC.NURSE ---
2330 pt assisted to side of bed to eat snakc or peanut butter and emmanuel crackers and sprite.
--- NOTE | 2021-07-09 02:09 | PC.NURSE ---
0200 Resting in bed. Easily arouses. No requests.
[2021-07-09] MEDS: enoxaparin 40 mg/0.4 mL Syringe SUBCUT (02:59)
--- NOTE | 2021-07-09 03:18 | PC.NURSE ---
0300 Resting in bed. Awakens easily to sit on side of bed. Eating pudding. No requests.
[2021-07-09 04:00] VITALS: BP 131/69; PULSE 82; RESP 16; TEMP 37.4; O2SAT 100
--- NOTE | 2021-07-09 04:41 | PC.NURSE ---
0400 Resting in bed. No distress.
--- NOTE | 2021-07-09 06:20 | PC.NURSE ---
0600 sitting on side of bed. No distress.
[2021-07-09 06:44] LABS: Glucose Point of Care 163 mg/dL (70-110)
[2021-07-09 08:19] VITALS: BP 146/73; PULSE 93; RESP 15; TEMP 38.3; O2SAT 97
[2021-07-09] MEDS: pantoprazole DR 40 mg Tablet PO (09:19)
[2021-07-09] MEDS: metoprolol tartrate 25 mg Tablet 12.5 MG PO ×2 (09:19→18:00)
[2021-07-09] MEDS: multivitamin therapeutic Tablet 1 TAB PO (09:19)
[2021-07-09] MEDS: PARoxetine 20 mg Tablet PO (09:19)
[2021-07-09] MEDS: phosphorus 250 mg Tablet PO ×2 (09:19→18:00)
[2021-07-09] MEDS: gabapentin 100 mg Capsule PO ×3 (09:20→20:34)
[2021-07-09] MEDS: acetaminophen 325 mg Tablet 650 MG PO (09:20)
[2021-07-09] MEDS: lidocaine 5% Patch 1 PATCH TOPICAL ×2 (09:21→21:30)
[2021-07-09] MEDS: insulin lispro 100 unit/1 mL SUBCUT ×4 (09:21→21:41)
[2021-07-09 11:48] LABS: Glucose Point of Care 156 mg/dL (70-110)
[2021-07-09 12:30] VITALS: BP 133/84; PULSE 88; RESP 17; TEMP 36.7; O2SAT 96
--- NOTE | 2021-07-09 14:08 | P.PN_ITS ---
Subjective Subjective: Interval history: Patient was seen and examined this morning, low- grade fever last night, noted T-max 100.9. Medications: Medication Review Details: Generic Name Dose Route Start Last Admin Trade Name Freq PRN Reason Stop Dose Admin Acetaminophen 650 mg 06/27/21 02:38 07/03/21 12:11 Acetaminophen 32 5 Mg Tablet PO 650 mg Q6H PRN Administration Mild/Mod Pain Or Temp >/= 101 Dextrose 25 ml 06/27/21 02:38 06/30/21 06:13 Dextrose 50% Syr saundra 50 Ml IVP 25 ml ONCE PRN Administration hypoglycemia prot ocol Protocol Dextrose 50 ml 06/27/21 02:38 06/28/21 03:38 Dextrose 50% Syr saundra 50 Ml IVP 50 ml PRN PRN Administration hypoglycemia prot ocol Protocol Enoxaparin Sodium 40 mg 06/27/21 02:45 07/03/21 02:32 Enoxaparin 40 Mg /0.4 Ml Syringe SUBCUT 40 mg Q24H SHARON Administration Gabapentin 100 mg 06/27/21 09:00 07/03/21 08:15 Gabapentin 100 M g Capsule PO 100 mg TID SHARON Administration Dextrose 500 mls @ 100 mls /hr 06/27/21 02:38 06/28/21 09:36 D5w IV Infused ONCE PRN Infusion Adult Acute Hypog lycemia Prot Protocol Insulin Detemir 5 unit 06/27/21 09:00 07/03/21 08:15 Insulin Detemir 100 Units/1 Ml SUBCUT 5 unit Q12H SHARON Administration Insulin Human Lisp ro 0 unit 06/27/21 08:00 07/03/21 12:11 Insulin Lispro 1 00 Unit/1 Ml SUBCUT 6 unit WM&BEDTIME SHARON Administration Protocol Lidocaine 1 patch 06/27/21 09:00 07/03/21 08:16 Lidocaine 5% Pat ch TOPICAL 1 patch [id number] SHARON Administration Loperamide HCl 2 mg 06/29/21 16:30 07/01/21 20:30 Loperamide 2 Mg Capsule PO 2 mg QID PRN Administration DIARRHEA Metoprolol Tartrat e 12.5 mg 06/27/21 09:00 07/03/21 08:15 Metoprolol Tartr ate 25 Mg Tablet PO 12.5 mg BID SHARON Administration Mirtazapine 7.5 mg 06/30/21 21:00 07/02/21 21:24 Mirtazapine 15 M g Tablet PO 7.5 mg BEDTIME SHARON Administration Multivitamins Ther apeutic 1 tab 06/27/21 15:00 07/03/21 08:15 Multivitamin The rapeutic Tablet PO 1 tab DAILY SHARON Administration Pantoprazole Sodiu m 40 mg 06/27/21 09:00 07/03/21 08:[address] 40 Mg Tablet PO 40 mg DAILY SHARON Administration Paroxetine HCl 20 mg 06/27/21 09:00 07/03/21 08:15 Paroxetine 20 Mg Tablet PO 20 mg DAILY SHARON Administration Potassium Phosphat e 250 mg 06/27/21 18:00 07/03/21 08:15 Phosphorus 250 M g Tablet PO 250 mg BID SHARON Administration Tramadol HCl 50 mg 06/27/21 06:34 06/29/21 20:18 Tramadol 50 Mg T ablet PO 50 mg Q6H PRN Administration PAIN Vitals/I&O/Wt Last Vital Signs Temp 98.1 F 07/09/21 12:30 Pulse 88 07/09/21 12:30 Resp 17 07/09/21 12:30 BP 133/84 07/09/21 12:30 Pulse Ox 96 07/09/21 12:30 07/08/21 07/09/21 07/09/21 22:59 06:59 14:59 Intake Total 480 / 720 960 / 960 Output Total 500 / 500 1000 / 1500 Balance -20 / 220 -1000 / -780 960 / 960 Physical Exam Const: COMMON NORMALS: patient oriented x3 HENMT: COMMON NORMALS: normocephalic and atraumatic HEAD & SCALP: normocephalic and atraumatic Chest: COMMONS NORMALS: normal palpation of entire chest wall CHEST: Yes Symmetrical chest wall rise Resp: COMMON NORMALS: clear to auscultation bilaterally EFFORT & INSPECTION: Yes symmetric chest movement AUSCULTATION: clear to auscultation bilaterally Cardio: COMMON NORMALS: regular rate, regular rhythm, S1 normal heart sound present, S2 normal heart sound present, No gallops present (Cardio), No murmurs present (Cardio), No rub (Cardio) and Peripheral pulses 2+ throughout RATE: regular rate RHYTHM: regular rhythm HEART SOUNDS: S1 normal heart sound present and S2 normal heart sound present PERIPHERAL PULSES: Peripheral p ulses 2+ throughout GI: COMMON NORMALS: Normal to inspection, nondistended, normoactive bowel sounds present, Soft to palpation, non-tender, No hepatosplenomegaly present and no masses AUSCULTATION: Yes normoactive bowel sounds PALPATION: Yes Soft to palpation and Yes No hepatosplenomegaly present RECTAL EXAM: deferred : COMMON NORMALS: Yes no CVA tenderness BLADDER/KIDNEY EXAM: Yes no CVA tenderness Back/Pelvis: COMMON NORMALS: no CVA tenderness Extremity: COMMON NORMALS: no clubbing, cyanosis or edema and no pedal edema Neuro: COMMON NORMALS: patient oriented x3 Data : 07/07/21 05:25 07/07/21 05:25 A&P Assessment and plan (1) Depression: Status: Acute Qualifiers: Active/Remission status: currently active Depression Type: major depressive disorder Major depression episode severity: severe Major depression recurrence: recurrent Psychotic features: without psychotic features Qualified Code(s): F33.2 - Major depressive disorder, recurrent severe without psychotic features (2) Adult failure to thrive: Status: Acute (3) Dehydration: Status: Acute (4) Hyperglycemia: Status: Acute (5) Homeless: Status: Acute (6) Decubitus ulcers: Status: Acute Qualifiers: Pressure injury location: buttock (7) Severe protein-calorie malnutrition: Status: Acute (8) Type 1 diabetes mellitus: Status: Acute Qualifiers: Diabetes mellitus complication status: with hyperglycemia Qualified Code(s): E10.65 - Type 1 diabetes mellitus with hyperglycemia (9) Generalized weakness: Status: Acute (10) Hypokalemia: Status: Acute (11) Fever: Current plan is to continue to monitor the patient. Currently she denies any chest pain shortness of breath, cough or urinary complaints, nausea vomiting diarrhea. Follow CBC procalcitonin. Low clinical suspicion for infection.If Patient will spike again we will do extensive work-up. Continue to avoid antibiotics. Status: Acute Additional A&P Information 41 year old lady with protein calorie malnutrition, BMI 12, presenting today with hyperglycemia (has not taken insulin in a month), dehydration, cachexia. Admit to med/surg Continue Levemir to 5 units twice daily, will stop fluids Insulin sliding scale, no current signs of DKA/ HHS, check Hba1c 19 CT chest abdomen and pelvis without signs of malignancy, denies any dysphagia, states poor po intake is due to depression and deconditioning Nutrition consult,, PT/OT evaluaton Encourage p.o. intake, calorie intake as per nutrition, Ensure drinks TSH within normal limits Depression, continue home paroxetine, add Remeron at nighttime, continue Xanax, consult psychiatry HIV, acute hep panel negative, order celiac and KELLY panel Hypokalemia, within normal limits, Hypomagnesemia, continue to monitor, will replace Hypophosphatemia, continue to monitor Diarrhea, stool studies so far unremarkable start loperamide Patient will likely need residential placement Decubitus ulcers, wound care Attestations Medical Necessity Statement*: Patient is currently awaiting residential placement. 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
[2021-07-09 16:10] VITALS: BP 159/89; PULSE 76; RESP 16; TEMP 36.7; O2SAT 98
[2021-07-09 17:20] LABS: Glucose Point of Care 175 mg/dL (70-110)
[2021-07-09] MEDS: loperamide 2 mg Capsule PO (17:59)
--- NOTE | 2021-07-09 19:25 | PC.NURSE ---
pt requested imodium to reduce frequency of BMs
[2021-07-09 20:00] VITALS: BP 122/73; PULSE 106; RESP 16; TEMP 37.1; O2SAT 96
[2021-07-09] MEDS: mirtazapine 15 mg Tablet 7.5 MG PO (20:34)
[2021-07-09 21:09] LABS: Glucose Point of Care 236 mg/dL (70-110)
[2021-07-10] VITALS: BP 117/67; PULSE 86; RESP 15; TEMP 37; O2SAT 98
--- NOTE | 2021-07-10 00:27 | PC.NURSE ---
2000 Sitting on side of bed using cell phone. Requests snack of emmanuel crackers and [place]. Given snack. Pt has diarrhea x 1. Pericare done per self.
--- NOTE | 2021-07-10 00:28 | PC.NURSE ---
2200 Lying in bed on right side. Requests vanilla pudding and given.
--- NOTE | 2021-07-10 00:29 | PC.NURSE ---
0005 Resting in bed on left side. Resp E/U. No distress.
[2021-07-10] MEDS: enoxaparin 40 mg/0.4 mL Syringe SUBCUT (02:29)
[2021-07-10 04:00] VITALS: BP 151/73; PULSE 91; RESP 16; TEMP 36.9; O2SAT 99
[2021-07-10 06:09] LABS: Basophils # 0.1 10^3/uL (0.0-0.1); Basophils % 0.7 %; Eosinophils # 0.1 10^3/uL (0.0-0.8); Hematocrit 37.5 % (37.0-47.0); Hemoglobin 11.4 g/dL (11.5-15.3); Lymphocytes # 2.6 10^3/uL (0.8-4.8); Lymphocytes % 36.9 %; Mean Corpuscular HGB Conc 30.4 g/dL (30.0-36.0); Mean Corpuscular Hemoglobin 27.7 pg (28.0-34.0); Mean Platelet Volume 9.8 fL (7.4-10.4); Monocytes # 0.5 10^3/uL (0.2-0.9); Monocytes % 7.5 %; Neutrophils # 3.77 10^3/uL (1.8-7.7); Neutrophils % 53.5 %; Nucleated Red Blood Cells % 0 %; Platelet Count 366 10^3/cmm (130-400); Red Blood Count 4.12 10^6/uL (4.1-5.3); Red Cell Distribution Width 14.3 % (12.1-15.1); White Blood Count 7.1 10^3/uL (4.0-10.0)
[2021-07-10 06:42] LABS: Anion Gap 15.5 (5-19); Blood Urea Nitrogen 32 mg/dL (6-20); Calcium 8.7 mg/dL (8.5-10.5); Carbon Dioxide 26 mmol/L (22-29); Chloride 102 mmol/L (98-107); Glomerular Filtration Rate 92.7 mL/min (90-130); Glucose 204 mg/dL (65-115); Osmolality Calculated 301 mOsm/kg (285-295); Potassium 4.5 mmol/L (3.5-5.1); Sodium 139 mmol/L (136-145)
[2021-07-10 06:44] LABS: Glucose Point of Care 230 mg/dL (70-110)
[2021-07-10 08:00] VITALS: BP 122/69; PULSE 82; RESP 16; TEMP 37.1; O2SAT 100
[2021-07-10] MEDS: PARoxetine 20 mg Tablet PO (09:03)
[2021-07-10] MEDS: pantoprazole DR 40 mg Tablet PO (09:03)
[2021-07-10] MEDS: multivitamin therapeutic Tablet 1 TAB PO (09:03)
[2021-07-10] MEDS: gabapentin 100 mg Capsule PO ×3 (09:03→21:13)
[2021-07-10] MEDS: phosphorus 250 mg Tablet PO ×2 (09:03→17:36)
[2021-07-10] MEDS: metoprolol tartrate 25 mg Tablet 12.5 MG PO ×2 (09:03→17:37)
[2021-07-10] MEDS: insulin lispro 100 unit/1 mL SUBCUT ×2 (09:04→18:29)
[2021-07-10] MEDS: lidocaine 5% Patch 1 PATCH TOPICAL (09:11)
[2021-07-10 12:00] VITALS: BP 161/89; PULSE 78; RESP 16; TEMP 36.8; O2SAT 99
[2021-07-10] MEDS: acetaminophen 325 mg Tablet 650 MG PO (12:55)
--- NOTE | 2021-07-10 14:03 | P.PN_ITS ---
Subjective Subjective: Interval history: Patient was seen this morning, no fevers, chills, no nausea, no vomiting, she has gained 8 pounds since being here, diarrhea is improving Vitals/I&O/Wt Last Vital Signs Temp 98.7 F 07/10/21 08:00 Pulse 82 07/10/21 08:00 Resp 16 07/10/21 08:00 BP 122/69 07/10/21 08:00 Pulse Ox 100 07/10/21 08:00 07/09/21 07/10/21 07/10/21 22:59 06:59 14:59 Intake Total 480 / 1440 240 / 240 Output Total 400 / 400 Balance 480 / 1440 -400 / 1040 240 / 240 Physical Exam Narrative: EXAM NARRATIVE: Cachectic, appearing Const: COMMON NORMALS: no acute distress and patient oriented x3 Resp: COMMON NORMALS: normal respiratory effort, No retractions, No use of accessory muscles and clear to auscultation bilaterally AUSCULTATION: clear to auscultation bilaterally Cardio: COMMON NORMALS: regular rate, regular rhythm, S1 normal heart sound present and S2 normal heart sound present RATE: regular rate RHYTHM: regular rhythm HEART SOUNDS: S1 normal heart sound present and S2 normal heart sound present GI: COMMON NORMALS: Normal to inspection, nondistended, normoactive bowel sounds present, Soft to palpation and non-tender PALPATION: Yes Soft to palpation Extremity: COMMON NORMALS: no pedal edema Neuro: COMMON NORMALS: patient oriented x3 Psych: COMMON NORMALS: mental status grossly normal Data : 07/10/21 04:33 07/10/21 04:33 A&P Assessment and plan (1) Depression: Status: Acute Qualifiers: Active/Remission status: currently active Depression Type: major depressive disorder Major depression episode severity: severe Major depression recurrence: recurrent Psychotic features: without psychotic features Qualified Code(s): F33.2 - Major depressive disorder, recurrent severe without psychotic features (2) Adult failure to thrive: Status: Acute (3) Dehydration: Status: Acute (4) Hyperglycemia: Status: Acute (5) Homeless: Status: Acute (6) Decubitus ulcers: Status: Acute Qualifiers: Pressure injury location: buttock (7) Severe protein-calorie malnutrition: Status: Acute (8) Type 1 diabetes mellitus: Status: Acute Qualifiers: Diabetes mellitus complication status: with hyperglycemia Qualified Code(s): E10.65 - Type 1 diabetes mellitus with hyperglycemia (9) Generalized weakness: Status: Acute (10) Hypokalemia: Status: Acute (11) Fever: Current plan is to continue to monitor the patient. Currently she denies any chest pain shortness of breath, cough or urinary complaints, nausea vomiting diarrhea. Follow CBC procalcitonin. Low clinical suspicion for infection.If Patient will spike again we will do extensive work-up. Continue to avoid antibiotics. Status: Acute Additional A&P Information 41 year old lady with protein calorie malnutrition, BMI 12, presenting today with hyperglycemia (has not taken insulin in a month), dehydration, cachexia. Admit to med/surg Continue Levemir to 5 units twice daily Insulin sliding scale, no current signs of DKA/ HHS, check Hba1c 19 CT chest abdomen and pelvis without signs of malignancy, denies any dysphagia, states poor po intake is due to depression and deconditioning Nutrition consult,, PT/OT evaluaton Encourage p.o. intake, calorie intake as per nutrition, Ensure drinks TSH within normal limits Depression, continue home paroxetine, add Remeron at nighttime, continue Xanax HIV, acute hep panel negative, celiac and KELLY panel within normal limits Hypokalemia, within normal limits, Hypomagnesemia, continue to monitor, will replace Hypophosphatemia, continue to monitor Diarrhea, stool studies so far unremarkable start loperamide Patient will likely need group home placement, currently awaiting level 2 Decubitus ulcers, wound care Attestations Medical Necessity Statement*: Patient requires hospitalization due to adult failure to thrive 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 of 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
[2021-07-10 16:00] VITALS: BP 127/69; PULSE 80; RESP 18; TEMP 36.9; O2SAT 99
[2021-07-10 17:36] LABS: Glucose Point of Care 319 mg/dL (70-110)
[2021-07-10 20:00] VITALS: BP 145/83; PULSE 74; RESP 16; TEMP 36.8; O2SAT 99
[2021-07-10 20:47] LABS: Glucose Point of Care 121 mg/dL (70-110)
[2021-07-10] MEDS: mirtazapine 15 mg Tablet 7.5 MG PO (21:13)
[2021-07-11] VITALS (8 sets, daily range): BP systolic 116–153; BP diastolic 63–79; PULSE 81–105; RESP 15–18; TEMP 36.6–37.2; O2SAT 95–100
--- NOTE | 2021-07-11 00:27 | PC.NURSE ---
2000 Rest[address] in bed. Easily awakens. Snack given of emmanuel crackers, peanut butter, vanilla pudding, and diet [place]. Eats 100%.
--- NOTE | 2021-07-11 00:28 | PC.NURSE ---
2200 Resting in bed watching tv. No distress.
--- NOTE | 2021-07-11 00:28 | PC.NURSE ---
0010 Resting in bed. Resp E/U. No distress.
[2021-07-11] MEDS: enoxaparin 40 mg/0.4 mL Syringe SUBCUT (02:46)
--- NOTE | 2021-07-11 02:56 | PC.NURSE ---
0230 Resting in bed. Awakens for medicine. Snack given per pt request.
--- NOTE | 2021-07-11 04:40 | PC.NURSE ---
0400 Pt eating snack and spills on gown. Fresh gown given.
[2021-07-11 06:42] LABS: Glucose Point of Care 171 mg/dL (70-110)
[2021-07-11 07:02] LABS: Basophils # 0.1 10^3/uL (0.0-0.1); Basophils % 0.8 %; Eosinophils # 0.1 10^3/uL (0.0-0.8); Eosinophils % 0.8 %; Hematocrit 37.9 % (37.0-47.0); Hemoglobin 11.8 g/dL (11.5-15.3); Lymphocytes # 2.1 10^3/uL (0.8-4.8); Lymphocytes % 32.4 %; Mean Corpuscular HGB Conc 31.1 g/dL (30.0-36.0); Mean Corpuscular Hemoglobin 27.9 pg (28.0-34.0); Mean Corpuscular Volume 89.6 fl (81-99); Mean Platelet Volume 9.8 fL (7.4-10.4); Monocytes # 0.5 10^3/uL (0.2-0.9); Monocytes % 7.8 %; Neutrophils % 57.7 %; Nucleated Red Blood Cells % 0 %; Platelet Count 379 10^3/cmm (130-400); Red Blood Count 4.23 10^6/uL (4.1-5.3); Red Cell Distribution Width 14.3 % (12.1-15.1); White Blood Count 6.6 10^3/uL (4.0-10.0)
[2021-07-11 07:22] LABS: Alanine Aminotransferase 15 U/L (0-33); Albumin Level 2.7 g/dL (3.5-5.2); Alkaline Phosphatase 153 IU/L (35-105); Anion Gap 9.8 (5-19); Aspartate Amino Transferase 20 U/L (0-32); Blood Urea Nitrogen 31 mg/dL (6-20); Calcium 8.3 mg/dL (8.5-10.5); Carbon Dioxide 30 mmol/L (22-29); Chloride 103 mmol/L (98-107); Globulin 2.3 g/dL (1.3-4.6); Glomerular Filtration Rate 110.7 mL/min (90-130); Glucose 182 mg/dL (65-115); Osmolality Calculated 297 mOsm/kg (285-295); Phosphorus 3.6 mg/dL (2.5-4.5); Potassium 4.8 mmol/L (3.5-5.1); Sodium 138 mmol/L (136-145); Total Bilirubin 0.2 mg/dL (0.15-1.2)
[2021-07-11] MEDS: loperamide 2 mg Capsule PO ×2 (08:44→19:38)
[2021-07-11] MEDS: acetaminophen 325 mg Tablet 650 MG PO (08:44)
[2021-07-11] MEDS: insulin lispro 100 unit/1 mL SUBCUT ×4 (08:45→22:28)
[2021-07-11] MEDS: pantoprazole DR 40 mg Tablet PO (08:46)
[2021-07-11] MEDS: multivitamin therapeutic Tablet 1 TAB PO (08:46)
[2021-07-11] MEDS: gabapentin 100 mg Capsule PO ×3 (08:46→20:59)
[2021-07-11] MEDS: metoprolol tartrate 25 mg Tablet 12.5 MG PO ×2 (08:46→18:31)
[2021-07-11] MEDS: phosphorus 250 mg Tablet PO ×2 (08:46→18:31)
[2021-07-11] MEDS: PARoxetine 20 mg Tablet PO (08:46)
[2021-07-11] MEDS: lidocaine 5% Patch 1 PATCH TOPICAL (08:47)
[2021-07-11 11:18] LABS: Glucose Point of Care 142 mg/dL (70-110)
--- NOTE | 2021-07-11 13:48 | PM.PN ---
Subjective Subjective: Interval history: Patient was seen this morning, is enjoying breakfast, having toast with jam, has no complaints Vitals/I&O/Wt Last Vital Signs Temp 98.0 F 07/11/21 11:43 Pulse 105 H 07/11/21 11:43 Resp 16 07/11/21 11:43 BP 132/79 07/11/21 11:43 Pulse Ox 97 07/11/21 11:43 07/10/21 07/11/21 07/11/21 22:59 06:59 14:59 Intake Total 960 / 1320 720 / 720 Balance 960 / 1320 720 / 720 Physical Exam Narrative: EXAM NARRATIVE: Cachectic, appearing Const: COMMON NORMALS: no acute distress and patient oriented x3 Resp: COMMON NORMALS: normal respiratory effort, No retractions, No use of accessory muscles and clear to auscultation bilaterally AUSCULTATION: clear to auscultation bilaterally Cardio: COMMON NORMALS: regular rate, regular rhythm, S1 normal heart sound present and S2 normal heart sound present RATE: regular rate RHYTHM: regular rhythm HEART SOUNDS: S1 normal heart sound present and S2 normal heart sound present GI: COMMON NORMALS: Normal to inspection, nondistended, normoactive bowel sounds present, Soft to palpation and non-tender PALPATION: Yes Soft to palpation Extremity: COMMON NORMALS: no pedal edema Neuro: COMMON NORMALS: patient oriented x3 Psych: COMMON NORMALS: mental status grossly normal Data : 07/11/21 05:33 07/11/21 05:33 A&P Assessment and plan (1) Depression: Status: Acute Qualifiers: Active/Remission status: currently active Depression Type: major depressive disorder Major depression episode severity: severe Major depression recurrence: recurrent Psychotic features: without psychotic features Qualified Code(s): F33.2 - Major depressive disorder, recurrent severe without psychotic features (2) Adult failure to thrive: Status: Acute (3) Dehydration: Status: Acute (4) Hyperglycemia: Status: Acute (5) Homeless: Status: Acute (6) Decubitus ulcers: Status: Acute Qualifiers: Pressure injury location: buttock (7) Severe protein-calorie malnutrition: Status: Acute (8) Type 1 diabetes mellitus: Status: Acute Qualifiers: Diabetes mellitus complication status: with hyperglycemia Qualified Code(s): E10.65 - Type 1 diabetes mellitus with hyperglycemia (9) Generalized weakness: Status: Acute (10) Hypokalemia: Status: Acute Additional A&P Information 41 year old lady with protein calorie malnutrition, BMI 12, presenting today with hyperglycemia (has not taken insulin in a month), dehydration, cachexia. Admit to med/surg Continue Levemir to 5 units twice daily Insulin sliding scale, no current signs of DKA/ HHS, check Hba1c 19 CT chest abdomen and pelvis without signs of malignancy, denies any dysphagia, states poor po intake is due to depression and deconditioning Nutrition consult,, PT/OT evaluaton Encourage p.o. intake, calorie intake as per nutrition, Ensure drinks TSH within normal limits Depression, continue home paroxetine, add Remeron at nighttime, continue Xanax HIV, acute hep panel negative, celiac and KELLY panel within normal limits Hypokalemia, within normal limits, Hypomagnesemia, continue to monitor, will replace Hypophosphatemia, continue to monitor Diarrhea, stool studies so far unremarkable start loperamide Patient will likely need intermediate placement, currently awaiting level 2 Decubitus ulcers, wound care Attestations Medical Necessity Statement*: Patient requires hospitalization for adult failure to thrive 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 of Care Code 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
[2021-07-11 17:12] LABS: Glucose Point of Care 169 mg/dL (70-110)
[2021-07-11] MEDS: mirtazapine 15 mg Tablet 7.5 MG PO (20:59)
[2021-07-11 21:51] LABS: Glucose Point of Care 225 mg/dL (70-110)
[2021-07-12] VITALS (7 sets, daily range): BP systolic 119–160; BP diastolic 72–87; PULSE 66–90; RESP 16–18; TEMP 36.7–37.3; O2SAT 95–100
[2021-07-12] MEDS: enoxaparin 40 mg/0.4 mL Syringe SUBCUT (02:18)
[2021-07-12 06:39] LABS: Basophils % 0.4 %; Eosinophils # 0.1 10^3/uL (0.0-0.8); Eosinophils % 1.8 %; Hematocrit 36.4 % (37.0-47.0); Hemoglobin 11.3 g/dL (11.5-15.3); Lymphocytes # 2.6 10^3/uL (0.8-4.8); Lymphocytes % 37.6 %; Mean Corpuscular Volume 90.1 fl (81-99); Mean Platelet Volume 10.3 fL (7.4-10.4); Monocytes # 0.6 10^3/uL (0.2-0.9); Monocytes % 8.3 %; Neutrophils # 3.52 10^3/uL (1.8-7.7); Neutrophils % 51.6 %; Nucleated Red Blood Cells % 0 %; Platelet Count 292 10^3/cmm (130-400); Red Blood Count 4.04 10^6/uL (4.1-5.3); Red Cell Distribution Width 14.5 % (12.1-15.1); White Blood Count 6.8 10^3/uL (4.0-10.0)
[2021-07-12 06:41] LABS: Glucose Point of Care 151 mg/dL (70-110)
[2021-07-12] MEDS: pantoprazole DR 40 mg Tablet PO (08:16)
[2021-07-12] MEDS: phosphorus 250 mg Tablet PO (08:16)
[2021-07-12] MEDS: PARoxetine 20 mg Tablet PO (08:16)
[2021-07-12] MEDS: insulin lispro 100 unit/1 mL SUBCUT ×3 (08:16→21:47)
[2021-07-12] MEDS: multivitamin therapeutic Tablet 1 TAB PO (08:16)
[2021-07-12] MEDS: metoprolol tartrate 25 mg Tablet 12.5 MG PO ×2 (08:17→18:26)
[2021-07-12] MEDS: lidocaine 5% Patch 1 PATCH TOPICAL ×2 (08:18→21:49)
[2021-07-12] MEDS: gabapentin 100 mg Capsule PO ×3 (08:23→21:46)
[2021-07-12] MEDS: acetaminophen 325 mg Tablet 650 MG PO (08:23)
[2021-07-12 08:42] LABS: Alanine Aminotransferase 19 U/L (0-33); Albumin Level 2.8 g/dL (3.5-5.2); Alkaline Phosphatase 121 IU/L (35-105); Anion Gap 14.3 (5-19); Aspartate Amino Transferase 26 U/L (0-32); Blood Urea Nitrogen 29 mg/dL (6-20); Calcium 8.5 mg/dL (8.5-10.5); Carbon Dioxide 27 mmol/L (22-29); Chloride 102 mmol/L (98-107); Globulin 2.7 g/dL (1.3-4.6); Glomerular Filtration Rate 92.7 mL/min (90-130); Glucose 142 mg/dL (65-115); Magnesium 1.8 mg/dL (1.7-2.3); Osmolality Calculated 294 mOsm/kg (285-295); Potassium 5.3 mmol/L (3.5-5.1); Sodium 138 mmol/L (136-145); Total Bilirubin 0.2 mg/dL (0.15-1.2); Total Protein 5.5 g/dL (6.6-8.7)
[2021-07-12 11:03] LABS: Glucose Point of Care 105 mg/dL (70-110)
--- NOTE | 2021-07-12 16:48 | PM.PN ---
Subjective Subjective: Interval history: Patient was seen this morning, she has no complaints, no nausea, no vomiting Vitals/I&O/Wt Last Vital Signs Temp 98.2 F 07/12/21 15:45 Pulse 77 07/12/21 15:45 Resp 16 07/12/21 15:45 BP 159/82 07/12/21 15:45 Pulse Ox 96 07/12/21 15:45 07/12/21 07/12/21 07/12/21 06:59 14:59 22:59 Intake Total 200 / 2130 480 / 480 Output Total 1949 Balance 200 / 726 480 / 480 -1950 / -1470 Physical Exam Narrative: EXAM NARRATIVE: Cachectic, appearing Const: COMMON NORMALS: no acute distress and patient oriented x3 Resp: COMMON NORMALS: normal respiratory effort, No retractions, No use of accessory muscles and clear to auscultation bilaterally AUSCULTATION: clear to auscultation bilaterally Cardio: COMMON NORMALS: regular rate, regular rhythm, S1 normal heart sound present and S2 normal heart sound present RATE: regular rate RHYTHM: regular rhythm HEART SOUNDS: S1 normal heart sound present and S2 normal heart sound present GI: COMMON NORMALS: Normal to inspection, nondistended, normoactive bowel sounds present, Soft to palpation and non-tender PALPATION: Yes Soft to palpation Extremity: COMMON NORMALS: no pedal edema Neuro: COMMON NORMALS: patient oriented x3 Psych: COMMON NORMALS: mental status grossly normal Data : 07/12/21 04:51 07/12/21 08:06 A&P Assessment and plan (1) Depression: Status: Acute Qualifiers: Active/Remission status: currently active Depression Type: major depressive disorder Major depression episode severity: severe Major depression recurrence: recurrent Psychotic features: without psychotic features Qualified Code(s): F33.2 - Major depressive disorder, recurrent severe without psychotic features (2) Adult failure to thrive: Status: Acute (3) Dehydration: Status: Acute (4) Hyperglycemia: Status: Acute (5) Homeless: Status: Acute (6) Decubitus ulcers: Status: Acute Qualifiers: Pressure injury location: buttock (7) Severe protein-calorie malnutrition: Status: Acute (8) Type 1 diabetes mellitus: Status: Acute Qualifiers: Diabetes mellitus complication status: with hyperglycemia Qualified Code(s): E10.65 - Type 1 diabetes mellitus with hyperglycemia (9) Generalized weakness: Status: Acute (10) Hypokalemia: Status: Acute Additional A&P Information 41 year old lady with protein calorie malnutrition, BMI 12, presenting today with hyperglycemia (has not taken insulin in a month), dehydration, cachexia. Admit to med/surg Continue Levemir to 5 units twice daily Insulin sliding scale, no current signs of DKA/ HHS, check Hba1c 19 CT chest abdomen and pelvis without signs of malignancy, denies any dysphagia, states poor po intake is due to depression and deconditioning Nutrition consult,, PT/OT evaluaton Encourage p.o. intake, calorie intake as per nutrition, Ensure drinks TSH within normal limits Depression, continue home paroxetine, add Remeron at nighttime, continue Xanax HIV, acute hep panel negative, celiac and KELLY panel within normal limits Hypokalemia, within normal limits, Hypomagnesemia, continue to monitor, will replace Hypophosphatemia, continue to monitor Diarrhea, stool studies so far unremarkable start loperamide Patient will likely need senior care placement, currently awaiting level 2 Decubitus ulcers, wound care Attestations Medical Necessity Statement*: Patient requires hospitalization for adult failure to thrive 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 of Care Code 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
[2021-07-12 17:18] LABS: Glucose Point of Care 337 mg/dL (70-110)
[2021-07-12 20:43] LABS: Glucose Point of Care 175 mg/dL (70-110)
[2021-07-12 20:43] LABS: Glucose Point of Care 232 mg/dL (70-110)
[2021-07-12] MEDS: mirtazapine 15 mg Tablet 7.5 MG PO (21:46)
[2021-07-13] VITALS: BP 111/65; PULSE 88; RESP 18; TEMP 37.4; O2SAT 92
[2021-07-13] MEDS: enoxaparin 40 mg/0.4 mL Syringe SUBCUT (03:25)
[2021-07-13 04:00] VITALS: BP 133/73; PULSE 84; RESP 16; TEMP 36.6; O2SAT 97
[2021-07-13 06:22] LABS: Basophils % 0.5 %; Eosinophils # 0.1 10^3/uL (0.0-0.8); Eosinophils % 2.1 %; Hematocrit 36.5 % (37.0-47.0); Hemoglobin 11.6 g/dL (11.5-15.3); Lymphocytes # 2.7 10^3/uL (0.8-4.8); Lymphocytes % 43.3 %; Mean Corpuscular HGB Conc 31.8 g/dL (30.0-36.0); Mean Corpuscular Hemoglobin 28.5 pg (28.0-34.0); Mean Corpuscular Volume 89.7 fl (81-99); Mean Platelet Volume 9.4 fL (7.4-10.4); Monocytes # 0.4 10^3/uL (0.2-0.9); Monocytes % 7.2 %; Neutrophils # 2.84 10^3/uL (1.8-7.7); Neutrophils % 46.4 %; Nucleated Red Blood Cells % 0 %; Platelet Count 388 10^3/cmm (130-400); Red Blood Count 4.07 10^6/uL (4.1-5.3); Red Cell Distribution Width 14.5 % (12.1-15.1); White Blood Count 6.1 10^3/uL (4.0-10.0)
[2021-07-13 06:28] LABS: Glucose Point of Care 157 mg/dL (70-110)
[2021-07-13 06:47] LABS: Alanine Aminotransferase 16 U/L (0-33); Albumin Level 2.5 g/dL (3.5-5.2); Alkaline Phosphatase 117 IU/L (35-105); Anion Gap 14.9 (5-19); Aspartate Amino Transferase 21 U/L (0-32); Blood Urea Nitrogen 28 mg/dL (6-20); Calcium 8.1 mg/dL (8.5-10.5); Carbon Dioxide 26 mmol/L (22-29); Chloride 104 mmol/L (98-107); Globulin 2.4 g/dL (1.3-4.6); Glomerular Filtration Rate 110.7 mL/min (90-130); Glucose 125 mg/dL (65-115); Magnesium 1.9 mg/dL (1.7-2.3); Osmolality Calculated 297 mOsm/kg (285-295); Phosphorus 3.3 mg/dL (2.5-4.5); Potassium 4.9 mmol/L (3.5-5.1); Sodium 140 mmol/L (136-145); Total Bilirubin 0.2 mg/dL (0.15-1.2); Total Protein 4.9 g/dL (6.6-8.7)
[2021-07-13 07:17] VITALS: BP 125/69; PULSE 102; RESP 16; TEMP 36.7; O2SAT 94
[2021-07-13] MEDS: insulin lispro 100 unit/1 mL SUBCUT ×2 (09:06→18:01)
[2021-07-13] MEDS: lidocaine 5% Patch 1 PATCH TOPICAL ×2 (09:06→21:33)
[2021-07-13] MEDS: PARoxetine 20 mg Tablet PO (09:07)
[2021-07-13] MEDS: metoprolol tartrate 25 mg Tablet 12.5 MG PO ×2 (09:07→18:07)
[2021-07-13] MEDS: gabapentin 100 mg Capsule PO ×3 (09:07→21:28)
[2021-07-13] MEDS: multivitamin therapeutic Tablet 1 TAB PO (09:07)
[2021-07-13] MEDS: pantoprazole DR 40 mg Tablet PO (09:08)
[2021-07-13] MEDS: acetaminophen 325 mg Tablet 650 MG PO (10:25)
[2021-07-13 11:07] LABS: Glucose Point of Care 82 mg/dL (70-110)
[2021-07-13 11:40] VITALS: BP 115/67; PULSE 98; RESP 18; TEMP 36.7; O2SAT 97
--- NOTE | 2021-07-13 12:38 | PM.PN ---
Subjective Subjective: Interval history: Patient was seen this morning, she sitting up in side of bed, no nausea, no vomiting, she has a friend visiting with her today Vitals/I&O/Wt Last Vital Signs Temp 98.1 F 07/13/21 11:40 Pulse 98 07/13/21 11:40 Resp 18 07/13/21 11:40 BP 115/67 07/13/21 11:40 Pulse Ox 97 07/13/21 11:40 07/12/21 07/13/21 07/13/21 22:59 06:59 14:59 Intake Total 480 / 960 240 / 1200 720 / 720 Output Total 1950 / 1950 Balance -1470 / -990 240 / -750 720 / 720 Physical Exam Const: COMMON NORMALS: no acute distress and patient oriented x3 Resp: COMMON NORMALS: normal respiratory effort, No retractions, No use of accessory muscles and clear to auscultation bilaterally AUSCULTATION: clear to auscultation bilaterally Cardio: COMMON NORMALS: regular rate, regular rhythm, S1 normal heart sound present and S2 normal heart sound present RATE: regular rate RHYTHM: regular rhythm HEART SOUNDS: S1 normal heart sound present and S2 normal heart sound present GI: COMMON NORMALS: Normal to inspection, nondistended, normoactive bowel sounds present, Soft to palpation and non-tender PALPATION: Yes Soft to palpation Extremity: COMMON NORMALS: no pedal edema Neuro: COMMON NORMALS: patient oriented x3 Psych: COMMON NORMALS: mental status grossly normal Data : 07/13/21 05:56 07/13/21 05:56 A&P Assessment and plan (1) Depression: Status: Acute Qualifiers: Active/Remission status: currently active Depression Type: major depressive disorder Major depression episode severity: severe Major depression recurrence: recurrent Psychotic features: without psychotic features Qualified Code(s): F33.2 - Major depressive disorder, recurrent severe without psychotic features (2) Adult failure to thrive: Status: Acute (3) Dehydration: Status: Acute (4) Hyperglycemia: Status: Acute (5) Homeless: Status: Acute (6) Decubitus ulcers: Status: Acute Qualifiers: Pressure injury location: buttock (7) Severe protein-calorie malnutrition: Status: Acute (8) Type 1 diabetes mellitus: Status: Acute Qualifiers: Diabetes mellitus complication status: with hyperglycemia Qualified Code(s): E10.65 - Type 1 diabetes mellitus with hyperglycemia (9) Generalized weakness: Status: Acute (10) Hypokalemia: Status: Acute Additional A&P Information 41 year old lady with protein calorie malnutrition, BMI 12, presenting today with hyperglycemia (has not taken insulin in a month), dehydration, cachexia. Admit to med/surg Continue Levemir to 5 units twice daily Insulin sliding scale, no current signs of DKA/ HHS, check Hba1c 19 CT chest abdomen and pelvis without signs of malignancy, denies any dysphagia, states poor po intake is due to depression and deconditioning Nutrition consult,, PT/OT evaluaton Encourage p.o. intake, calorie intake as per nutrition, Ensure drinks TSH within normal limits Depression, continue home paroxetine, add Remeron at nighttime, continue Xanax HIV, acute hep panel negative, celiac and KELLY panel within normal limits Hypokalemia, within normal limits, Hypomagnesemia, continue to monitor, will replace Hypophosphatemia, continue to monitor Diarrhea, stool studies so far unremarkable start loperamide Patient will likely need retirement placement, currently awaiting level 2 Decubitus ulcers, wound care Attestations Medical Necessity Statement*: Patient requires hospitalization for adult failure to thrive 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 of Care Code 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
[2021-07-13 15:21] VITALS: BP 123/73; PULSE 105; RESP 18; TEMP 36.6; O2SAT 98
[2021-07-13 17:09] LABS: Glucose Point of Care 324 mg/dL (70-110)
[2021-07-13 20:00] VITALS: BP 155/93; PULSE 81; RESP 20; TEMP 37.2; O2SAT 97
[2021-07-13 20:33] LABS: Glucose Point of Care 128 mg/dL (70-110)
[2021-07-13] MEDS: mirtazapine 15 mg Tablet 7.5 MG PO (21:28)
[2021-07-13 23:47] LABS: Glucose Point of Care 239 mg/dL (70-110)
[2021-07-14] VITALS (8 sets, daily range): BP systolic 106–153; BP diastolic 62–85; PULSE 68–92; RESP 16–18; TEMP 36.4–37.2; O2SAT 94–99
[2021-07-14] MEDS: enoxaparin 40 mg/0.4 mL Syringe SUBCUT (02:32)
[2021-07-14 06:30] LABS: Glucose Point of Care 122 mg/dL (70-110)
[2021-07-14] MEDS: metoprolol tartrate 25 mg Tablet 12.5 MG PO ×2 (08:50→17:02)
[2021-07-14] MEDS: lidocaine 5% Patch 1 PATCH TOPICAL ×2 (08:50→20:29)
[2021-07-14] MEDS: pantoprazole DR 40 mg Tablet PO (08:50)
[2021-07-14] MEDS: PARoxetine 20 mg Tablet PO (08:50)
[2021-07-14] MEDS: multivitamin therapeutic Tablet 1 TAB PO (08:50)
[2021-07-14] MEDS: gabapentin 100 mg Capsule PO ×3 (08:50→20:08)
[2021-07-14] MEDS: acetaminophen 325 mg Tablet 650 MG PO (09:06)
[2021-07-14 10:54] LABS: Glucose Point of Care 201 mg/dL (70-110)
[2021-07-14] MEDS: insulin lispro 100 unit/1 mL SUBCUT ×3 (11:11→20:25)
--- NOTE | 2021-07-14 16:48 | P.PN_ITS ---
Subjective Subjective: Interval history: Patient was seen this morning, has no complaints, no nausea, vomiting Vitals/I&O/Wt Last Vital Signs Temp 98.6 F 07/14/21 15:24 Pulse 87 07/14/21 15:24 Resp 16 07/14/21 15:24 BP 153/83 07/14/21 15:24 Pulse Ox 99 07/14/21 15:24 07/14/21 07/14/21 07/14/21 06:59 14:59 22:59 Intake Total 800 / 2960 720 / 720 Output Total 1200 / 3000 500 / 500 Balance -400 / -40 720 / 720 -500 / 220 Physical Exam Narrative: EXAM NARRATIVE: Cachectic, appearing Const: COMMON NORMALS: no acute distress and patient oriented x3 GENERAL APPEARANCE: disheveled and frail appearing OTHER: Cachexia Resp: COMMON NORMALS: normal respiratory effort, No retractions, No use of accessory muscles and clear to auscultation bilaterally AUSCULTATION: clear to auscultation bilaterally Cardio: COMMON NORMALS: regular rate, regular rhythm, S1 normal heart sound present and S2 normal heart sound present RATE: regular rate RHYTHM: regular rhythm HEART SOUNDS: S1 normal heart sound present and S2 normal heart sound present GI: COMMON NORMALS: Normal to inspection, nondistended, normoactive bowel sounds present, Soft to palpation and non-tender PALPATION: Yes Soft to palpation Extremity: COMMON NORMALS: no pedal edema Neuro: COMMON NORMALS: patient oriented x3 Psych: COMMON NORMALS: mental status grossly normal Data : 07/13/21 05:56 07/13/21 05:56 A&P Assessment and plan (1) Depression: Status: Acute Qualifiers: Active/Remission status: currently active Depression Type: major depressive disorder Major depression episode severity: severe Major depression recurrence: recurrent Psychotic features: without psychotic features Qualified Code(s): F33.2 - Major depressive disorder, recurrent severe without psychotic features (2) Adult failure to thrive: Status: Acute (3) Dehydration: Status: Acute (4) Hyperglycemia: Status: Acute (5) Homeless: Status: Acute (6) Decubitus ulcers: Status: Acute Qualifiers: Pressure injury location: buttock (7) Severe protein-calorie malnutrition: Status: Acute (8) Type 1 diabetes mellitus: Status: Acute Qualifiers: Diabetes mellitus complication status: with hyperglycemia Qualified Code(s): E10.65 - Type 1 diabetes mellitus with hyperglycemia (9) Generalized weakness: Status: Acute (10) Hypokalemia: Status: Acute Additional A&P Information 41 year old lady with protein calorie malnutrition, BMI 12, presenting today with hyperglycemia (has not taken insulin in a month), dehydration, cachexia. Admit to med/surg Continue Levemir to 5 units twice daily Insulin sliding scale, no current signs of DKA/ HHS, check Hba1c 19 CT chest abdomen and pelvis without signs of malignancy, denies any dysphagia, states poor po intake is due to depression and deconditioning Nutrition consult,, PT/OT evaluaton Encourage p.o. intake, calorie intake as per nutrition, Ensure drinks TSH within normal limits Depression, continue home paroxetine, add Remeron at nighttime, continue Xanax HIV, acute hep panel negative, celiac and KELLY panel within normal limits Hypokalemia, within normal limits, Hypomagnesemia, continue to monitor, will replace Hypophosphatemia, continue to monitor Diarrhea, stool studies so far unremarkable start loperamide Patient will likely need long term placement, currently awaiting level 2 Decubitus ulcers, wound care Attestations Medical Necessity Statement*: Patient requires hospitalization for adult failure to thrive 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 of Care Code 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
[2021-07-14 17:30] LABS: Glucose Point of Care 262 mg/dL (70-110)
[2021-07-14] MEDS: mirtazapine 15 mg Tablet 7.5 MG PO (20:08)
[2021-07-14 20:39] LABS: Glucose Point of Care 257 mg/dL (70-110)
[2021-07-15] VITALS (7 sets, daily range): BP systolic 131–161; BP diastolic 74–87; PULSE 71–110; RESP 16–19; TEMP 36.6–37.2; O2SAT 91–98
[2021-07-15] MEDS: enoxaparin 40 mg/0.4 mL Syringe SUBCUT (01:55)
[2021-07-15 06:38] LABS: Glucose Point of Care 232 mg/dL (70-110)
[2021-07-15] MEDS: PARoxetine 20 mg Tablet PO (08:29)
[2021-07-15] MEDS: insulin lispro 100 unit/1 mL SUBCUT ×4 (08:29→20:54)
[2021-07-15] MEDS: metoprolol tartrate 25 mg Tablet 12.5 MG PO ×2 (08:29→17:05)
[2021-07-15] MEDS: pantoprazole DR 40 mg Tablet PO (08:29)
[2021-07-15] MEDS: gabapentin 100 mg Capsule PO ×3 (08:29→20:53)
[2021-07-15] MEDS: multivitamin therapeutic Tablet 1 TAB PO (08:29)
[2021-07-15] MEDS: lidocaine 5% Patch 1 PATCH TOPICAL (08:30)
[2021-07-15] MEDS: acetaminophen 325 mg Tablet 650 MG PO ×2 (08:32→17:05)
[2021-07-15 11:35] LABS: Glucose Point of Care 159 mg/dL (70-110)
--- NOTE | 2021-07-15 11:36 | PM.PN ---
Vitals/I&O/Wt Last Vital Signs Temp 99 F 07/15/21 11:13 Pulse 71 07/15/21 11:13 Resp 16 07/15/21 11:13 BP 145/82 07/15/21 11:13 Pulse Ox 96 07/15/21 11:13 07/14/21 07/15/21 07/15/21 22:59 06:59 14:59 Intake Total 480 / 1200 240 / 1440 480 / 480 Output Total 1500 / 1500 500 / 2000 500 / 500 Balance -1020 / -300 -260 / -560 -20 / -20 Physical Exam Narrative: EXAM NARRATIVE: Cachectic, appearing Const: COMMON NORMALS: no acute distress GENERAL APPEARANCE: disheveled and frail appearing ORIENTATION/CONSCIOUSNESS: Yes awake, Yes oriented to person and Yes oriented to place OTHER: Cachexia Resp: COMMON NORMALS: normal respiratory effort, No retractions, No use of accessory muscles and clear to auscultation bilaterally AUSCULTATION: clear to auscultation bilaterally Cardio: COMMON NORMALS: regular rate, regular rhythm, S1 normal heart sound present and S2 normal heart sound present RATE: regular rate RHYTHM: regular rhythm HEART SOUNDS: S1 normal heart sound present and S2 normal heart sound present GI: COMMON NORMALS: Normal to inspection, nondistended, normoactive bowel sounds present, Soft to palpation and non-tender PALPATION: Yes Soft to palpation Extremity: COMMON NORMALS: no pedal edema Neuro: SENSORIUM/ORIENTATION: Yes oriented to person and Yes oriented to place Data : 07/13/21 05:56 07/13/21 05:56 A&P Assessment and plan (1) Depression: Status: Acute Qualifiers: Active/Remission status: currently active Depression Type: major depressive disorder Major depression episode severity: severe Major depression recurrence: recurrent Psychotic features: without psychotic features Qualified Code(s): F33.2 - Major depressive disorder, recurrent severe without psychotic features (2) Adult failure to thrive: Status: Acute (3) Dehydration: Status: Acute (4) Hyperglycemia: Status: Acute (5) Homeless: Status: Acute (6) Decubitus ulcers: Status: Acute Qualifiers: Pressure injury location: buttock (7) Severe protein-calorie malnutrition: Status: Acute (8) Type 1 diabetes mellitus: Status: Acute Qualifiers: Diabetes mellitus complication status: with hyperglycemia Qualified Code(s): E10.65 - Type 1 diabetes mellitus with hyperglycemia (9) Generalized weakness: Status: Acute (10) Hypokalemia: Status: Acute Additional A&P Information 41 year old lady with protein calorie malnutrition, BMI 12, presenting today with hyperglycemia (has not taken insulin in a month), dehydration, cachexia. Admit to med/surg Continue Levemir to 5 units twice daily Insulin sliding scale, no current signs of DKA/ HHS, check Hba1c 19 CT chest abdomen and pelvis without signs of malignancy, denies any dysphagia, states poor po intake is due to depression and deconditioning Nutrition consult,, PT/OT evaluaton Encourage p.o. intake, calorie intake as per nutrition, Ensure drinks TSH within normal limits Depression, continue home paroxetine, add Remeron at nighttime, continue Xanax HIV, acute hep panel negative, celiac and KELLY panel within normal limits Hypokalemia, within normal limits, Hypomagnesemia, continue to monitor, will replace Hypophosphatemia, continue to monitor Diarrhea, stool studies so far unremarkable start loperamide Patient will likely need custodial placement, currently awaiting level 2 Decubitus ulcers, wound care Attestations Medical Necessity Statement*: Patient requires hospitalization for adult failure to thrive 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 of Care Code 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
--- NOTE | 2021-07-15 13:09 | PC.CHAP ---
Pastoral Care Encounter/Spiritual Assessment Type of Contact [] Declined benefits analyst visit [] Patient/Family/Request visit [] Outpatient visit [XX] Follow-up visit [] Physician referral [] Code/Alert [] Routine visit [] Staff referral [] Actively dying [] Patient sleeping [] Family support [] [] Out of room [] Palliative care [] [] Receiving care in room [] Pre-surgical visit [] Trauma [XX] Long length of stay [] ICU visit [] Other: Relational/Emotional Strength [] Patient feels connected with others/family/visitors/staff [XX] Distress [XX] Loneliness/isolation [] Abandonment Spirituality of Patient [] Person of Annette [] Attends Zoroastrianism of their Annette [] Believes in Prayer [] Reads Bible or Restoration materials [XX] There are Spiritual issues to be addressed Shot Hole Driller Interventions [XX] Prayer [XX] Active listening [XX] Non-anxious presence [XX] Spiritual/emotional support [] Crisis/trauma care [] Spiritual counseling [XX] Bereavement support [XX] Provided bereavement packet [XX] Provided Bible/devotional materials [XX] Provided toy/stuffed animal, coloring book to patient or family member [] Provided Communion [] Anointing/[place] [] Salvation [XX] Completed spiritual assessment [] Other: Impact on Illness or Injury [] Angry [] Fearful [] Anxious [] Often cries [] Exhaustion [] Unable to work [] Unable to attend hoahaoism [] Unable to walk/stand [] Unable to read [] Unable to drive [] Unable to eat/drink [] Unable to sleep [] Unable to be with family [] Patient intubated [] Other: Summary: Shot Hole Driller visited pt due to long length of stay and most recent benefits analyst visit being 06/28. Pt stated that she has depression in addition to other health issues, including diabetes since childhood. Pt has experienced recent loss of a significant other. Pt states that she is taking antidepressants but has not yet seen or been referred to a therapist. Shot Hole Driller strongly encouraged that type of support once she is out of the hospital. Also, despite having sons who live locally, pt stated that they are busy with their own lives. There is relationship with her sons but it seems limited. Pt has two grandsons whom she hopes to see once she is out of the hospital. Pt has nothing so two stuffed animals were provided to pt for her to give grandsons. Stuffed animal also provided to pt for herself. Previously, pt has lived in a senior care and will likely return to a senior care upon discharge. In terms of emotions, benefits analyst and pt discussed her grief and bereavement materials were provided. In terms of spiritual assessment, benefits analyst and pt discussed pt's exposure to, understanding of, and relationship with God or a Higher Power. Pt has limited exposure and relationship yet believes there is a God. Pt believes that her significant other who recently is with God now. Discussion led to how best benefits analyst could support pt, spiritually, and the patient selected a Bible and prayer. New Testament and prayer provided. Time spent with patient: 30+ minutes
[2021-07-15 17:03] LABS: Glucose Point of Care 245 mg/dL (70-110)
[2021-07-15 20:43] LABS: Glucose Point of Care 185 mg/dL (70-110)
[2021-07-15] MEDS: mirtazapine 15 mg Tablet 7.5 MG PO (20:53)
[2021-07-16] MEDS: enoxaparin 40 mg/0.4 mL Syringe SUBCUT (02:15)
[2021-07-16 03:41] VITALS: BP 134/77; PULSE 75; RESP 18; TEMP 36.4; O2SAT 99
[2021-07-16 05:15] LABS: Basophils # 0.1 10^3/uL (0.0-0.1); Basophils % 0.8 %; Eosinophils # 0.1 10^3/uL (0.0-0.8); Eosinophils % 1.8 %; Hemoglobin 11.7 g/dL (11.5-15.3); Lymphocytes # 3.1 10^3/uL (0.8-4.8); Lymphocytes % 50.6 %; Mean Corpuscular HGB Conc 30.8 g/dL (30.0-36.0); Mean Corpuscular Hemoglobin 27.5 pg (28.0-34.0); Mean Corpuscular Volume 89.4 fl (81-99); Mean Platelet Volume 9.6 fL (7.4-10.4); Monocytes # 0.5 10^3/uL (0.2-0.9); Monocytes % 7.5 %; Neutrophils # 2.38 10^3/uL (1.8-7.7); Neutrophils % 38.8 %; Nucleated Red Blood Cells % 0 %; Platelet Count 418 10^3/cmm (130-400); Red Blood Count 4.25 10^6/uL (4.1-5.3); Red Cell Distribution Width 14.6 % (12.1-15.1); White Blood Count 6.1 10^3/uL (4.0-10.0)
[2021-07-16 05:36] LABS: Alanine Aminotransferase 22 U/L (0-33); Albumin Level 2.8 g/dL (3.5-5.2); Alkaline Phosphatase 138 IU/L (35-105); Anion Gap 11.6 (5-19); Aspartate Amino Transferase 19 U/L (0-32); Blood Urea Nitrogen 41 mg/dL (6-20); Calcium 8.4 mg/dL (8.5-10.5); Carbon Dioxide 26 mmol/L (22-29); Chloride 106 mmol/L (98-107); Globulin 2.3 g/dL (1.3-4.6); Glomerular Filtration Rate 79.4 mL/min (90-130); Glucose 132 mg/dL (65-115); Magnesium 2.3 mg/dL (1.7-2.3); Osmolality Calculated 300 mOsm/kg (285-295); Phosphorus 3.8 mg/dL (2.5-4.5); Potassium 4.6 mmol/L (3.5-5.1); Sodium 139 mmol/L (136-145); Total Bilirubin 0.2 mg/dL (0.15-1.2); Total Protein 5.1 g/dL (6.6-8.7)
[2021-07-16 06:36] LABS: Glucose Point of Care 116 mg/dL (70-110)
[2021-07-16 07:59] VITALS: BP 144/81; PULSE 77; RESP 17; TEMP 36.7; O2SAT 98
[2021-07-16] MEDS: pantoprazole DR 40 mg Tablet PO (08:45)
[2021-07-16] MEDS: gabapentin 100 mg Capsule PO ×3 (08:45→21:21)
[2021-07-16] MEDS: PARoxetine 20 mg Tablet PO (08:45)
[2021-07-16] MEDS: metoprolol tartrate 25 mg Tablet 12.5 MG PO ×2 (08:45→17:18)
[2021-07-16] MEDS: multivitamin therapeutic Tablet 1 TAB PO (08:45)
[2021-07-16] MEDS: lidocaine 5% Patch 1 PATCH TOPICAL (08:46)
--- NOTE | 2021-07-16 10:25 | P.PN_ITS ---
Subjective Subjective: Interval history: This morning patient is doing well, has no complaints, no fevers, chills, nausea, vomiting Vitals/I&O/Wt Last Vital Signs Temp 98.1 F 07/16/21 07:59 Pulse 77 07/16/21 07:59 Resp 17 07/16/21 07:59 BP 144/81 07/16/21 07:59 Pulse Ox 98 07/16/21 07:59 07/15/21 07/16/21 07/16/21 22:59 06:59 14:59 Intake Total 1220 / 1940 360 / 2300 480 / 480 Output Total 1500 / 1999 2000 / 4000 Balance -280 / -60 -1640 / -1700 480 / 480 Physical Exam Const: COMMON NORMALS: no acute distress and patient oriented x3 GENERAL APPEARANCE: frail appearing Resp: COMMON NORMALS: normal respiratory effort, No retractions, No use of accessory muscles and clear to auscultation bilaterally AUSCULTATION: clear to auscultation bilaterally Cardio: COMMON NORMALS: regular rate, regular rhythm, S1 normal heart sound present and S2 normal heart sound present RATE: regular rate RHYTHM: regular rhythm HEART SOUNDS: S1 normal heart sound present and S2 normal heart sound present GI: COMMON NORMALS: Normal to inspection, nondistended, normoactive bowel sounds present, Soft to palpation and non-tender PALPATION: Yes Soft to palpation Extremity: COMMON NORMALS: no pedal edema Neuro: COMMON NORMALS: patient oriented x3 Psych: COMMON NORMALS: mental status grossly normal Data : 07/16/21 04:10 07/16/21 04:10 A&P Assessment and plan (1) Depression: Status: Acute Qualifiers: Active/Remission status: currently active Depression Type: major depressive disorder Major depression episode severity: severe Major depression recurrence: recurrent Psychotic features: without psychotic features Qualified Code(s): F33.2 - Major depressive disorder, recurrent severe without psychotic features (2) Adult failure to thrive: Status: Acute (3) Dehydration: Status: Acute (4) Hyperglycemia: Status: Acute (5) Homeless: Status: Acute (6) Decubitus ulcers: Status: Acute Qualifiers: Pressure injury location: buttock (7) Severe protein-calorie malnutrition: Status: Acute (8) Type 1 diabetes mellitus: Status: Acute Qualifiers: Diabetes mellitus complication status: with hyperglycemia Qualified Code(s): E10.65 - Type 1 diabetes mellitus with hyperglycemia (9) Generalized weakness: Status: Acute (10) Hypokalemia: Status: Acute Additional A&P Information 41 year old lady with protein calorie malnutrition, BMI 12, presenting today with hyperglycemia (has not taken insulin in a month), dehydration, cachexia. Admit to med/surg Continue Levemir to 5 units twice daily Insulin sliding scale, no current signs of DKA/ HHS, check Hba1c 19 CT chest abdomen and pelvis without signs of malignancy, denies any dysphagia, states poor po intake is due to depression and deconditioning Nutrition consult,, PT/OT evaluaton Encourage p.o. intake, calorie intake as per nutrition, Ensure drinks TSH within normal limits Depression, continue home paroxetine, add Remeron at nighttime, continue Xanax HIV, acute hep panel negative, celiac and KELLY panel within normal limits Hypokalemia, within normal limits, Hypomagnesemia, continue to monitor, will replace Hypophosphatemia, continue to monitor Diarrhea, stool studies so far unremarkable start loperamide Patient will likely need shelter placement, currently awaiting level 2 Decubitus ulcers, wound care Attestations Medical Necessity Statement*: Patient requires hospitalization for adult failure to thrive 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 of Care Code Acute 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
[2021-07-16 10:36] LABS: Glucose Point of Care 249 mg/dL (70-110)
[2021-07-16] MEDS: insulin lispro 100 unit/1 mL SUBCUT ×3 (10:52→21:22)
[2021-07-16 12:00] VITALS: BP 154/85; PULSE 79; RESP 16; TEMP 36.8; O2SAT 96
[2021-07-16 15:33] VITALS: BP 154/90; PULSE 94; RESP 17; TEMP 36.4; O2SAT 97
[2021-07-16 17:19] LABS: Glucose Point of Care 199 mg/dL (70-110)
[2021-07-16] MEDS: acetaminophen 325 mg Tablet 650 MG PO (19:49)
[2021-07-16 20:00] VITALS: BP 166/79; PULSE 107; RESP 16; TEMP 37.3; O2SAT 95
[2021-07-16 20:55] LABS: Glucose Point of Care 342 mg/dL (70-110)
[2021-07-16] MEDS: mirtazapine 15 mg Tablet 7.5 MG PO (21:21)
[2021-07-16 23:58] LABS: Glucose Point of Care 54 mg/dL (70-110)
[2021-07-17] VITALS: BP 125/75; PULSE 85; RESP 16; TEMP 36.7; O2SAT 98
--- NOTE | 2021-07-17 00:04 | PC.NURSE ---
ACCUCHECK Pt felt like her BS was low. Stated she felt shakey and some diaphoresis. Accucheck done and was 54. Snacks given. She also had snacks with insulin given earlier this shift
--- NOTE | 2021-07-17 00:39 | PC.NURSE ---
DANIELITO BETANCOURT now 89 and says she feels better
[2021-07-17 00:40] LABS: Glucose Point of Care 118 mg/dL (70-110)
[2021-07-17 04:00] VITALS: BP 138/75; PULSE 82; RESP 16; TEMP 36.7; O2SAT 96
[2021-07-17 05:32] LABS: Basophils % 0.6 %; Eosinophils % 0.3 %; Hematocrit 37.3 % (37.0-47.0); Hemoglobin 11.8 g/dL (11.5-15.3); Lymphocytes # 2.3 10^3/uL (0.8-4.8); Lymphocytes % 33.6 %; Mean Corpuscular HGB Conc 31.6 g/dL (30.0-36.0); Mean Corpuscular Volume 88.4 fl (81-99); Mean Platelet Volume 9.6 fL (7.4-10.4); Monocytes # 0.4 10^3/uL (0.2-0.9); Monocytes % 6.1 %; Neutrophils # 4.07 10^3/uL (1.8-7.7); Neutrophils % 58.8 %; Nucleated Red Blood Cells % 0 %; Platelet Count 431 10^3/cmm (130-400); Red Blood Count 4.22 10^6/uL (4.1-5.3); Red Cell Distribution Width 14.7 % (12.1-15.1); White Blood Count 6.9 10^3/uL (4.0-10.0)
[2021-07-17 05:51] LABS: Anion Gap 14.1 (5-19); Blood Urea Nitrogen 40 mg/dL (6-20); Calcium 8.5 mg/dL (8.5-10.5); Carbon Dioxide 27 mmol/L (22-29); Chloride 102 mmol/L (98-107); Glomerular Filtration Rate 79.4 mL/min (90-130); Glucose 209 mg/dL (65-115); Magnesium 2.2 mg/dL (1.7-2.3); Osmolality Calculated 302 mOsm/kg (285-295); Phosphorus 3.9 mg/dL (2.5-4.5); Potassium 5.1 mmol/L (3.5-5.1); Sodium 138 mmol/L (136-145)
[2021-07-17 06:29] LABS: Glucose Point of Care 205 mg/dL (70-110)
[2021-07-17 08:21] VITALS: BP 133/85; PULSE 109; RESP 16; TEMP 36.9; O2SAT 98
[2021-07-17] MEDS: multivitamin therapeutic Tablet 1 TAB PO (08:33)
--- NOTE | 2021-07-17 08:36 | PC.NURSE ---
Notified Dr Shelley, the following meds are coming up as not scheduled. gabapentin, levemir, lidocaine patch, metoprolol, protonix and paxil.
[2021-07-17] MEDS: pantoprazole DR 40 mg Tablet PO (10:04)
[2021-07-17] MEDS: gabapentin 100 mg Capsule PO ×3 (10:04→21:41)
[2021-07-17] MEDS: metoprolol tartrate 25 mg Tablet 12.5 MG PO ×2 (10:04→16:59)
[2021-07-17] MEDS: lidocaine 5% Patch 1 PATCH TOPICAL ×2 (10:05→21:42)
[2021-07-17] MEDS: PARoxetine 20 mg Tablet PO (10:05)
[2021-07-17] MEDS: enoxaparin 40 mg/0.4 mL Syringe SUBCUT (10:05)
[2021-07-17] MEDS: acetaminophen 325 mg Tablet 650 MG PO (10:07)
[2021-07-17 11:08] LABS: Glucose Point of Care 406 mg/dL (70-110)
[2021-07-17] MEDS: insulin lispro 100 unit/1 mL SUBCUT ×2 (11:51→21:50)
[2021-07-17 11:52] LABS: Glucose Point of Care 251 mg/dL (70-110)
[2021-07-17 13:18] VITALS: BP 148/81; PULSE 96; RESP 16; TEMP 36.4; O2SAT 98
--- NOTE | 2021-07-17 13:35 | P.PN_ITS ---
Subjective Subjective: Interval history: Patient was seen this morning, doing well, no nausea, no vomiting she is doing well, Vitals/I&O/Wt Last Vital Signs Temp 97.5 F L 07/17/21 13:18 Pulse 96 07/17/21 13:18 Resp 16 07/17/21 13:18 BP 148/81 07/17/21 13:18 Pulse Ox 98 07/17/21 13:18 07/16/21 07/17/21 07/17/21 22:59 06:59 14:59 Intake Total 240 / 960 720 / 1680 790 / 790 Output Total 600 / 600 1000 / 1600 Balance -360 / 360 -280 / 80 790 / 790 Physical Exam Narrative: EXAM NARRATIVE: Cachectic, appearing Const: COMMON NORMALS: no acute distress and patient oriented x3 Resp: COMMON NORMALS: normal respiratory effort, No retractions, No use of accessory muscles and clear to auscultation bilaterally AUSCULTATION: clear to auscultation bilaterally Cardio: COMMON NORMALS: regular rate, regular rhythm, S1 normal heart sound p resent and S2 normal heart sound present RATE: regular rate RHYTHM: regular rhythm HEART SOUNDS: S1 normal heart sound present and S2 normal heart sound present GI: COMMON NORMALS: Normal to inspection, nondistended, normoactive bowel sounds present, Soft to palpation and non-tender PALPATION: Yes Soft to palpation Extremity: COMMON NORMALS: no pedal edema Neuro: COMMON NORMALS: patient oriented x3 Psych: COMMON NORMALS: mental status grossly normal Data : 07/17/21 04:30 07/17/21 04:30 A&P Assessment and plan (1) Depression: Status: Acute Qualifiers: Active/Remission status: currently active Depression Type: major depressive disorder Major depression episode severity: severe Major depression recurrence: recurrent Psychotic features: without psychotic features Qualified Code(s): F33.2 - Major depressive disorder, recurrent severe without psychotic features (2) Adult failure to thrive: Status: Acute (3) Dehydration: Status: Acute (4) Hyperglycemia: Status: Acute (5) Homeless: Status: Acute (6) Decubitus ulcers: Status: Acute Qualifiers: Pressure injury location: buttock (7) Severe protein-calorie malnutrition: Status: Acute (8) Type 1 diabetes mellitus: Status: Acute Qualifiers: Diabetes mellitus complication status: with hyperglycemia Qualified Code(s): E10.65 - Type 1 diabetes mellitus with hyperglycemia (9) Generalized weakness: Status: Acute (10) Hypokalemia: Status: Acute Additional A&P Information 41 year old lady with protein calorie malnutrition, BMI 12, presenting today with hyperglycemia (has not taken insulin in a month), dehydration, cachexia. Admit to med/surg Continue Levemir to 5 units twice daily Insulin sliding scale, no current signs of DKA/ HHS, check Hba1c 19 CT chest abdomen and pelvis without signs of malignancy, denies any dysphagia, states poor po intake is due to depression and deconditioning Nutrition consult,, PT/OT evaluaton Encourage p.o. intake, calorie intake as per nutrition, Ensure drinks TSH within normal limits Depression, continue home paroxetine, add Remeron at nighttime, continue Xanax HIV, acute hep panel negative, celiac and KELLY panel within normal limits Hypokalemia, within normal limits, Hypomagnesemia, continue to monitor, will replace Hypophosphatemia, continue to monitor Diarrhea, stool studies so far unremarkable start loperamide Patient will likely need senior care placement, currently awaiting level 2 Decubitus ulcers, wound care Attestations Medical Necessity Statement*: Patient requires hospitalization for adult failure to thrive 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 of Care Code Acute Supervisor Audit Clerks for [facility] Fwd Diagnoses Depression F33.2 Active/Remission status: currently active Depression Type: major depressive disorder Major depression episode severity: severe Major depression recurrence: recurrent Psychotic features: without psychotic features Adult failure to thrive R62.7 Dehydration E86.0 Hyperglycemia R73.9 Homeless Z59.00 Decubitus ulcers L89.90 Pressure injury location: buttock Severe protein-calorie malnutrition E43 Type 1 diabetes mellitus E10.65 Diabetes mellitus complication status: with hyperglycemia Generalized weakness R53.1 Hypokalemia E87.6
[2021-07-17 15:04] VITALS: BP 142/82; PULSE 105; RESP 18; TEMP 36.7; O2SAT 97
[2021-07-17 16:53] LABS: Glucose Point of Care 120 mg/dL (70-110)
[2021-07-17 20:00] VITALS: BP 138/78; PULSE 95; RESP 18; TEMP 36.9; O2SAT 97
[2021-07-17 21:30] LABS: Glucose Point of Care 272 mg/dL (70-110)
[2021-07-17] MEDS: mirtazapine 15 mg Tablet 7.5 MG PO (21:42)
[2021-07-18] VITALS (8 sets, daily range): BP systolic 122–147; BP diastolic 73–90; PULSE 87–120; RESP 15–18; TEMP 36.4–37.1; O2SAT 94–98
[2021-07-18 06:38] LABS: Glucose Point of Care 235 mg/dL (70-110)
[2021-07-18 07:28] LABS: Basophils # 0.1 10^3/uL (0.0-0.1); Basophils % 1.1 %; Eosinophils # 0.1 10^3/uL (0.0-0.8); Eosinophils % 1.2 %; Hematocrit 38.9 % (37.0-47.0); Lymphocytes # 2.7 10^3/uL (0.8-4.8); Lymphocytes % 40.5 %; Mean Corpuscular HGB Conc 30.8 g/dL (30.0-36.0); Mean Corpuscular Hemoglobin 28.6 pg (28.0-34.0); Mean Corpuscular Volume 92.8 fl (81-99); Mean Platelet Volume 9.5 fL (7.4-10.4); Monocytes # 0.5 10^3/uL (0.2-0.9); Monocytes % 7.5 %; Neutrophils # 3.22 10^3/uL (1.8-7.7); Neutrophils % 49.1 %; Nucleated Red Blood Cells % 0 %; Platelet Count 429 10^3/cmm (130-400); Red Blood Count 4.19 10^6/uL (4.1-5.3); Red Cell Distribution Width 15.3 % (12.1-15.1); White Blood Count 6.6 10^3/uL (4.0-10.0)
[2021-07-18 07:44] LABS: Magnesium 2.2 mg/dL (1.7-2.3); Phosphorus 3.7 mg/dL (2.5-4.5)
[2021-07-18 07:45] LABS: Anion Gap 16.6 (5-19); Blood Urea Nitrogen 50 mg/dL (6-20); Calcium 8.3 mg/dL (8.5-10.5); Carbon Dioxide 21 mmol/L (22-29); Chloride 105 mmol/L (98-107); Glomerular Filtration Rate 69.3 mL/min (90-130); Glucose 256 mg/dL (65-115); Osmolality Calculated 306 mOsm/kg (285-295); Potassium 5.6 mmol/L (3.5-5.1); Sodium 137 mmol/L (136-145)
[2021-07-18] MEDS: PARoxetine 20 mg Tablet PO (08:53)
[2021-07-18] MEDS: metoprolol tartrate 25 mg Tablet 12.5 MG PO ×2 (08:53→17:34)
[2021-07-18] MEDS: multivitamin therapeutic Tablet 1 TAB PO (08:53)
[2021-07-18] MEDS: pantoprazole DR 40 mg Tablet PO (08:53)
[2021-07-18] MEDS: gabapentin 100 mg Capsule PO ×3 (08:53→21:37)
[2021-07-18] MEDS: insulin lispro 100 unit/1 mL SUBCUT ×4 (08:53→21:37)
[2021-07-18] MEDS: lidocaine 5% Patch 1 PATCH TOPICAL (08:54)
[2021-07-18] MEDS: enoxaparin 40 mg/0.4 mL Syringe SUBCUT (08:54)
[2021-07-18] MEDS: acetaminophen 325 mg Tablet 650 MG PO (09:56)
[2021-07-18 12:10] LABS: Glucose Point of Care 145 mg/dL (70-110)
--- NOTE | 2021-07-18 15:21 | P.PN_ITS ---
Subjective Subjective: Interval history: Patient was seen this morning, has no complaints, no nausea, no vomiting, she is eating well, no abdominal pain complaints, no diarrhea Vitals/I&O/Wt Last Vital Signs Temp 98.3 F 07/18/21 11:42 Pulse 87 07/18/21 11:42 Resp 16 07/18/21 11:42 BP 139/83 07/18/21 11:42 Pulse Ox 98 07/18/21 11:42 07/18/21 07/18/21 07/18/21 06:59 14:59 22:59 Intake Total 960 / 960 Output Total 0 / 0 Balance 0 / 1260 960 / 960 Weight last 48 hrs Weight 41.821 kg Physical Exam Narrative: EXAM NARRATIVE: Cachectic, appearing Const: COMMON NORMALS: no acute distress and patient oriented x3 GENERAL APPEARANCE: frail appearing Resp: COMMON NORMALS: normal respiratory effort, No retractions, No use of accessory muscles and clear to auscultation bilaterally AUSCULTATION: clear to auscultation bilaterally Cardio: COMMON NORMALS: regular rate, regular rhythm, S1 normal heart sound present and S2 normal heart sound present RATE: regular rate RHYTHM: regular rhythm HEART SOUNDS: S1 normal heart sound present and S2 normal heart sound present GI: COMMON NORMALS: Normal to inspection, nondistended, normoactive bowel sounds present, Soft to palpation and non-tender PALPATION: Yes Soft to palpation Extremity: COMMON NORMALS: no pedal edema Neuro: COMMON NORMALS: patient oriented x3 Psych: COMMON NORMALS: mental status grossly normal Data : 07/18/21 05:45 07/18/21 05:45 A&P Assessment and plan (1) Depression: Status: Acute Qualifiers: Active/Remission status: currently active Depression Type: major depressive disorder Major depression episode severity: severe Major depression recurrence: recurrent Psychotic features: without psychotic features Qualified Code(s): F33.2 - Major depressive disorder, recurrent severe without psychotic features (2) Adult failure to thrive: Status: Acute (3) Dehydration: Status: Acute (4) Hyperglycemia: Status: Acute (5) Homeless: Status: Acute (6) Decubitus ulcers: Status: Acute Qualifiers: Pressure injury location: buttock (7) Severe protein-calorie malnutrition: Status: Acute (8) Type 1 diabetes mellitus: Status: Acute Qualifiers: Diabetes mellitus complication status: with hyperglycemia Qualified Co de(s): E10.65 - Type 1 diabetes mellitus with hyperglycemia (9) Generalized weakness: Status: Acute (10) Hypokalemia: Status: Acute Additional A&P Information 41 year old lady with protein calorie malnutrition, BMI 12, presenting today with hyperglycemia (has not taken insulin in a month), dehydration, cachexia. Admit to med/surg Continue Levemir to 5 units twice daily Insulin sliding scale, no current signs of DKA/ HHS, check Hba1c 19 CT chest abdomen and pelvis without signs of malignancy, denies any dysphagia, states poor po intake is due to depression and deconditioning Nutrition consult,, PT/OT evaluaton Encourage p.o. intake, calorie intake as per nutrition, Ensure drinks TSH within normal limits Depression, continue home paroxetine, add Remeron at nighttime, continue Xanax HIV, acute hep panel negative, celiac and KELLY panel within normal limits Hypokalemia, within normal limits, Hypomagnesemia, continue to monitor, will replace Hypophosphatemia, continue to monitor Diarrhea, stool studies so far unremarkable start loperamide Patient will likely need fdc placement, currently awaiting level 2 Decubitus ulcers, wound care Attestations Medical Necessity Statement*: Patient is awaiting level 2 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 of Care Code Acute Support Services Coordinator for [facility] Fwd Diagnoses Depression F33.2 Active/Remission status: currently active Depression Type: major depressive disorder Major depression episode severity: severe Major depression recurrence: recurrent Psychotic features: without psychotic features Adult failure to thrive R62.7 Dehydration E86.0 Hyperglycemia R73.9 Homeless Z59.00 Decubitus ulcers L89.90 Pressure injury location: buttock Severe protein-calorie malnutrition E43 Type 1 diabetes mellitus E10.65 Diabetes mellitus complication status: with hyperglycemia Generalized weakness R53.1 Hypokalemia E87.6
[2021-07-18 17:02] LABS: Glucose Point of Care 145 mg/dL (70-110)
[2021-07-18 20:59] LABS: Glucose Point of Care 196 mg/dL (70-110)
[2021-07-18] MEDS: mirtazapine 15 mg Tablet 7.5 MG PO (21:36)
[2021-07-18] MEDS: loperamide 2 mg Capsule PO (21:48)
[2021-07-19 04:00] VITALS: BP 138/69; PULSE 78; RESP 17; TEMP 36.5; O2SAT 95
[2021-07-19 06:49] LABS: Glucose Point of Care 229 mg/dL (70-110)
[2021-07-19 07:17] VITALS: BP 145/83; PULSE 91; RESP 16; TEMP 36.7; O2SAT 97
[2021-07-19] MEDS: multivitamin therapeutic Tablet 1 TAB PO (09:18)
[2021-07-19] MEDS: gabapentin 100 mg Capsule PO ×3 (09:18→22:10)
[2021-07-19] MEDS: PARoxetine 20 mg Tablet PO (09:18)
[2021-07-19] MEDS: metoprolol tartrate 25 mg Tablet 12.5 MG PO ×2 (09:18→19:16)
[2021-07-19] MEDS: acetaminophen 325 mg Tablet 650 MG PO ×2 (09:18→19:16)
[2021-07-19] MEDS: insulin lispro 100 unit/1 mL SUBCUT ×2 (09:18→13:19)
[2021-07-19] MEDS: pantoprazole DR 40 mg Tablet PO (09:18)
[2021-07-19] MEDS: lidocaine 5% Patch 1 PATCH TOPICAL (09:19)
[2021-07-19 11:46] LABS: Glucose Point of Care 212 mg/dL (70-110)
[2021-07-19] MEDS: enoxaparin 40 mg/0.4 mL Syringe SUBCUT (13:18)
--- NOTE | 2021-07-19 13:39 | P.PN_ITS ---
Subjective Subjective: Interval history: Patient was seen this morning, seen eating breakfast, has no complaints Vitals/I&O/Wt Last Vital Signs Temp 98.0 F 07/19/21 07:17 Pulse 91 07/19/21 07:17 Resp 16 07/19/21 07:17 BP 145/83 07/19/21 07:17 Pulse Ox 97 07/19/21 07:17 07/18/21 07/19/21 07/19/21 22:59 06:59 14:59 Intake Total 960 / 1920 480 / 2400 Output Total 360 / 360 1110 / 1470 Balance 600 / 1560 -630 / 930 Weight last 48 hrs Weight 41.821 kg Physical Exam Const: COMMON NORMALS: no acute distress and patient oriented x3 Resp: COMMON NORMALS: normal respiratory effort, No retractions, No use of acc essory muscles and clear to auscultation bilaterally AUSCULTATION: clear to auscultation bilaterally Cardio: COMMON NORMALS: regular rate, regular rhythm, S1 normal heart sound present and S2 normal heart sound present RATE: regular rate RHYTHM: regular rhythm HEART SOUNDS: S1 normal heart sound present and S2 normal heart sound present GI: COMMON NORMALS: Normal to inspection, nondistended, normoactive bowel sounds present, Soft to palpation and non-tender PALPATION: Yes Soft to palpation Extremity: COMMON NORMALS: no pedal edema Neuro: COMMON NORMALS: patient oriented x3 Psych: COMMON NORMALS: mental status grossly normal Data : 07/18/21 05:45 07/18/21 05:45 A&P Assessment and plan (1) Depression: Status: Acute Qualifiers: Active/Remission status: currently active Depression Type: major depressive disorder Major depression episode severity: severe Major depression recurrence: recurrent Psychotic features: without psychotic features Qualified Code(s): F33.2 - Major depressive disorder, recurrent severe without psychotic features (2) Adult failure to thrive: Status: Acute (3) Dehydration: Status: Acute (4) Hyperglycemia: Status: Acute (5) Homeless: Status: Acute (6) Decubitus ulcers: Status: Acute Qualifiers: Pressure injury location: buttock (7) Severe protein-calorie malnutrition: Status: Acute (8) Type 1 diabetes mellitus: Status: Acute Qualifiers: Diabetes mellitus complication status: with hyperglycemia Qualified Code(s): E10.65 - Type 1 diabetes mellitus with hyperglycemia (9) Generalized weakness: Status: Acute (10) Hypokalemia: Status: Acute Additional A&P Information 41 year old lady with protein calorie malnutrition, BMI 12, presenting today with hyperglycemia (has not taken insulin in a month), dehydration, cachexia. Admit to med/surg Continue Levemir to 5 units twice daily Insulin sliding scale, no current signs of DKA/ HHS, check Hba1c 19 CT chest abdomen and pelvis without signs of malignancy, denies any dysphagia, states poor po intake is due to depression and deconditioning Nutrition consult,, PT/OT evaluaton Encourage p.o. intake, calorie intake as per nutrition, Ensure drinks TSH within normal limits Depression, continue home paroxetine, add Remeron at nighttime, continue Xanax HIV, acute hep panel negative, celiac and KELLY panel within normal limits Hypokalemia, within normal limits, Hypomagnesemia, continue to monitor, will replace Hypophosphatemia, continue to monitor Diarrhea, stool studies so far unremarkable start loperamide Patient will likely need long-term placement, currently awaiting level 2 Decubitus ulcers, wound care Attestations Medical Necessity Statement*: Patient requires hospitalization for protein calorie malnutrition, adult failure to thrive 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 of Care Code Acute Rubber Press Tender for [facility] Fwd Diagnoses Depression F33.2 Active/Remission status: currently active Depression Type: major depressive disorder Major depression episode severity: severe Major depression recurrence: recurrent Psychotic features: without psychotic features Adult failure to thrive R62.7 Dehydration E86.0 Hyperglycemia R73.9 Homeless Z59.00 Decubitus ulcers L89.90 Pressure injury location: buttock Severe protein-calorie malnutrition E43 Type 1 diabetes mellitus E10.65 Diabetes mellitus complication status: with hyperglycemia Generalized weakness R53.1 Hypokalemia E87.6
[2021-07-19] MEDS: ondansetron 2 mg/ML SDV 2 mL 4 MG IVP (15:53)
[2021-07-19 16:00] VITALS: BP 149/86; PULSE 82; RESP 15; TEMP 37.1; O2SAT 97
[2021-07-19 17:27] LABS: Glucose Point of Care 89 mg/dL (70-110)
[2021-07-19 19:35] VITALS: BP 130/75; PULSE 82; RESP 16; TEMP 37.1; O2SAT 97
[2021-07-19] MEDS: mirtazapine 15 mg Tablet 7.5 MG PO (22:09)
[2021-07-20] VITALS: BP 121/73; PULSE 76; RESP 16; TEMP 36.4; O2SAT 97
[2021-07-20 04:00] VITALS: BP 144/85; PULSE 77; RESP 16; TEMP 36.6; O2SAT 98
[2021-07-20 06:54] LABS: Glucose Point of Care 217 mg/dL (70-110)
[2021-07-20 08:00] VITALS: BP 150/89; PULSE 96; RESP 18; TEMP 36.9; O2SAT 94
[2021-07-20] MEDS: gabapentin 100 mg Capsule PO ×3 (09:44→21:21)
[2021-07-20] MEDS: multivitamin therapeutic Tablet 1 TAB PO (09:44)
[2021-07-20] MEDS: lidocaine 5% Patch 1 PATCH TOPICAL ×2 (09:44→21:35)
[2021-07-20] MEDS: acetaminophen 325 mg Tablet 650 MG PO ×2 (09:44→21:22)
[2021-07-20] MEDS: PARoxetine 20 mg Tablet PO (09:44)
[2021-07-20] MEDS: metoprolol tartrate 25 mg Tablet 12.5 MG PO ×2 (09:44→18:53)
[2021-07-20] MEDS: pantoprazole DR 40 mg Tablet PO (09:44)
[2021-07-20] MEDS: enoxaparin 40 mg/0.4 mL Syringe SUBCUT (09:45)
[2021-07-20] MEDS: insulin lispro 100 unit/1 mL SUBCUT ×3 (09:45→18:53)
[2021-07-20 11:57] VITALS: BP 151/68; PULSE 85; RESP 18; TEMP 36.7; O2SAT 98
[2021-07-20 12:18] LABS: Glucose Point of Care 242 mg/dL (70-110)
--- NOTE | 2021-07-20 13:09 | P.PN_ITS ---
Subjective Subjective: Interval history: Patient was seen this morning, she had her interview today, no nausea, vomiting, her blood sugars are trending higher Medications: Medication Review Details: Generic Name Dose Route Start Last Admin Trade Name [place] PRN Reason Stop Dose Admin Acetaminophen 650 mg 06/27/21 02:38 07/03/21 12:11 Acetaminophen 32 5 Mg Tablet PO 650 mg Q6H PRN Administration Mild/Mod Pain Or Temp >/= 101 Dextrose 25 ml 06/27/21 02:38 06/30/21 06:13 Dextrose 50% Syr saundra 50 Ml IVP 25 ml ONCE PRN Administration hypoglycemia prot ocol Protocol Dextrose 50 ml 06/27/21 02:38 06/28/21 03:38 Dextrose 50% Syr saundra 50 Ml IVP 50 ml PRN PRN Administration hypoglycemia prot ocol Protocol Enoxaparin Sodium 40 mg 06/27/21 02:45 07/03/21 02:32 Enoxaparin 40 Mg /0.4 Ml Syringe SUBCUT 40 mg Q24H SHARON Administration Gabapentin 100 mg 06/27/21 09:00 07/03/21 08:15 Gabapentin 100 M g Capsule PO 100 mg TID SHARON Administration Dextrose 500 mls @ 100 mls /hr 06/27/21 02:38 06/28/21 09:36 D5w IV Infused ONCE PRN Infusion Adult Acute Hypog lycemia Prot Protocol Insulin Detemir 5 unit 06/27/21 09:00 07/03/21 08:15 Insulin Detemir 100 Units/1 Ml SUBCUT 5 unit Q12H SHARON Administration Insulin Human Lisp ro 0 unit 06/27/21 08:00 07/03/21 12:11 Insulin Lispro 1 00 Unit/1 Ml SUBCUT 6 unit WM&BEDTIME SHARON Administration Protocol Lidocaine 1 patch 06/27/21 09:00 07/03/21 08:16 Lidocaine 5% Pat ch TOPICAL 1 patch [id number] SHARON Administration Loperamide HCl 2 mg 06/29/21 16:30 07/01/21 20:30 Loperamide 2 Mg Capsule PO 2 mg QID PRN Administration DIARRHEA Metoprolol Tartrat e 12.5 mg 06/27/21 09:00 07/03/21 08:15 Metoprolol Tartr ate 25 Mg Tablet PO 12.5 mg BID SHARON Administration Mirtazapine 7.5 mg 06/30/21 21:00 07/02/21 21:24 Mirtazapine 15 M g Tablet PO 7.5 mg BEDTIME SHARON Administration Multivitamins Ther apeutic 1 tab 06/27/21 15:00 07/03/21 08:15 Multivitamin The rapeutic Tablet PO 1 tab DAILY SHARON Administration Pantoprazole Sodiu m 40 mg 06/27/21 09:00 07/03/21 08:[address] 40 Mg Tablet PO 40 mg DAILY SHARON Administration Paroxetine HCl 20 mg 06/27/21 09:00 07/03/21 08:15 Paroxetine 20 Mg Tablet PO 20 mg DAILY SHARON Administration Potassium Phosphat e 250 mg 06/27/21 18:00 07/03/21 08:15 Phosphorus 250 M g Tablet PO 250 mg BID SHARON Administration Tramadol HCl 50 mg 06/27/21 06:34 06/29/21 20:18 Tramadol 50 Mg T ablet PO 50 mg Q6H PRN Administration PAIN Vitals/I&O/Wt Last Vital Signs Temp 98.1 F 07/20/21 11:57 Pulse 85 07/20/21 11:57 Resp 18 07/20/21 11:57 BP 151/68 07/20/21 11:57 Pulse Ox 98 07/20/21 11:57 07/19/21 07/20/21 07/20/21 22:59 06:59 14:59 Intake Total 720 / 720 300 / 1020 240 / 240 Balance 720 / 720 300 / 1020 240 / 240 Physical Exam Narrative: EXAM NARRATIVE: Cachectic, appearing Const: COMMON NORMALS: no acute distress and patient oriented x3 Resp: COMMON NORMALS: normal respiratory effort, No retractions, No use of accessory muscles and clear to auscultation bilaterally AUSCULTATION: clear to auscultation bilaterally Cardio: COMMON NORMALS: regular rate, regular rhythm, S1 normal heart sound present and S2 normal heart sound present RATE: regular rate RHYTHM: regular rhythm HEART SOUNDS: S1 normal heart sound present and S2 normal heart sound present GI: COMMON NORMALS: Normal to inspection, nondistended, normoactive bowel myriam nds present, Soft to palpation and non-tender PALPATION: Yes Soft to palpation Extremity: COMMON NORMALS: no pedal edema Neuro: COMMON NORMALS: patient oriented x3 Psych: COMMON NORMALS: mental status grossly normal Data : 07/18/21 05:45 07/18/21 05:45 A&P Assessment and plan (1) Depression: Status: Acute Qualifiers: Active/Remission status: currently active Depression Type: major depressive disorder Major depression episode severity: severe Major depression recurrence: recurrent Psychotic features: without psychotic features Qualified Code(s): F33.2 - Major depressive disorder, recurrent severe without psychotic features (2) Adult failure to thrive: Status: Acute (3) Dehydration: Status: Acute (4) Hyperglycemia: Status: Acute (5) Homeless: Status: Acute (6) Decubitus ulcers: Status: Acute Qualifiers: Pressure injury location: buttock (7) Severe protein-calorie malnutrition: Status: Acute (8) Type 1 diabetes mellitus: Status: Acute Qualifiers: Diabetes mellitus complication status: with hyperglycemia Qualified Code(s): E10.65 - Type 1 diabetes mellitus with hyperglycemia (9) Generalized weakness: Status: Acute (10) Hypokalemia: Status: Acute Additional A&P Information 41 year old lady with protein calorie malnutrition, BMI 12, presenting today with hyperglycemia (has not taken insulin in a month), dehydration, cachexia. Admit to med/surg BMI increased to 15.8 Increasing blood sugar, increase Levemir to 8 units twice daily Insulin sliding scale, no current signs of DKA/ HHS, check Hba1c 19 CT chest abdomen and pelvis without signs of malignancy, denies any dysphagia, states poor po intake is due to depression and deconditioning Nutrition consult,, PT/OT evaluaton Encourage p.o. intake, calorie intake as per nutrition, Ensure drinks TSH within normal limits Depression, continue home paroxetine, add Remeron at nighttime, continue Xanax HIV, acute hep panel negative, celiac and KELLY panel within normal limits Hypokalemia, within normal limits, Hypomagnesemia, continue to monitor, will replace Hypophosphatemia, continue to monitor Diarrhea, stool studies so far unremarkable start loperamide Patient will likely need retirement placement, currently awaiting level 2 Decubitus ulcers, wound care Attestations Medical Necessity Statement*: Patient requires hospitalization for adult failure to thrive 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 of Care Code Acute 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
[2021-07-20 15:27] LABS: Glucose Point of Care 73 mg/dL (70-110)
[2021-07-20 15:36] VITALS: BP 182/96; PULSE 92; RESP 18; TEMP 36.5; O2SAT 97
[2021-07-20] MEDS: ondansetron 2 mg/ML SDV 2 mL 4 MG IVP (15:40)
[2021-07-20 17:14] LABS: Glucose Point of Care 192 mg/dL (70-110)
[2021-07-20 20:00] VITALS: BP 137/88; PULSE 89; RESP 22; TEMP 36.7; O2SAT 98
[2021-07-20] MEDS: mirtazapine 15 mg Tablet 7.5 MG PO (21:21)
[2021-07-20 22:00] LABS: Glucose Point of Care 116 mg/dL (70-110)
[2021-07-21] VITALS: BP 139/79; PULSE 78; RESP 16; TEMP 36.6; O2SAT 95
[2021-07-21 04:00] VITALS: BP 153/86; PULSE 100; RESP 16; TEMP 36.8; O2SAT 96
[2021-07-21 05:10] LABS: Basophils # 0.1 10^3/uL (0.0-0.1); Basophils % 0.9 %; Eosinophils # 0.1 10^3/uL (0.0-0.8); Eosinophils % 1.2 %; Hematocrit 36.1 % (37.0-47.0); Hemoglobin 11.4 g/dL (11.5-15.3); Lymphocytes # 2.6 10^3/uL (0.8-4.8); Lymphocytes % 44.8 %; Mean Corpuscular HGB Conc 31.6 g/dL (30.0-36.0); Mean Corpuscular Hemoglobin 28.2 pg (28.0-34.0); Mean Corpuscular Volume 89.4 fl (81-99); Mean Platelet Volume 9.4 fL (7.4-10.4); Monocytes # 0.5 10^3/uL (0.2-0.9); Monocytes % 9.1 %; Neutrophils # 2.54 10^3/uL (1.8-7.7); Neutrophils % 43.5 %; Nucleated Red Blood Cells % 0 %; Platelet Count 329 10^3/cmm (130-400); Red Blood Count 4.04 10^6/uL (4.1-5.3); Red Cell Distribution Width 15.1 % (12.1-15.1); White Blood Count 5.8 10^3/uL (4.0-10.0)
[2021-07-21 05:31] LABS: Alanine Aminotransferase 17 U/L (0-33); Albumin Level 2.8 g/dL (3.5-5.2); Alkaline Phosphatase 127 IU/L (35-105); Anion Gap 13.6 (5-19); Aspartate Amino Transferase 14 U/L (0-32); Blood Urea Nitrogen 43 mg/dL (6-20); Calcium 8.4 mg/dL (8.5-10.5); Carbon Dioxide 25 mmol/L (22-29); Chloride 105 mmol/L (98-107); Glomerular Filtration Rate 69.3 mL/min (90-130); Glucose 248 mg/dL (65-115); Magnesium 2.2 mg/dL (1.7-2.3); Osmolality Calculated 305 mOsm/kg (285-295); Phosphorus 4.1 mg/dL (2.5-4.5); Potassium 5.6 mmol/L (3.5-5.1); Sodium 138 mmol/L (136-145); Total Bilirubin 0.2 mg/dL (0.15-1.2); Total Protein 4.8 g/dL (6.6-8.7)
[2021-07-21 06:48] LABS: Glucose Point of Care 231 mg/dL (70-110)
[2021-07-21 07:46] VITALS: BP 163/78; PULSE 104; RESP 18; TEMP 36.8; O2SAT 95
[2021-07-21] MEDS: sodium polystyrene sulfonate 15 gm/60 mL Btl PO ×4 (08:48→20:39)
[2021-07-21] MEDS: insulin regular-human 10 UNIT in SYRINGE 1 EACH IVP ×2 (08:48→18:51)
[2021-07-21] MEDS: dextrose 50% syringe 50 mL IVP ×2 (08:48→18:50)
[2021-07-21] MEDS: acetaminophen 325 mg Tablet 650 MG PO (11:06)
[2021-07-21] MEDS: gabapentin 100 mg Capsule PO ×3 (11:06→20:38)
[2021-07-21] MEDS: metoprolol tartrate 25 mg Tablet 12.5 MG PO ×2 (11:06→18:46)
[2021-07-21] MEDS: PARoxetine 20 mg Tablet PO (11:06)
[2021-07-21] MEDS: multivitamin therapeutic Tablet 1 TAB PO (11:07)
[2021-07-21] MEDS: enoxaparin 40 mg/0.4 mL Syringe SUBCUT (11:07)
[2021-07-21] MEDS: lidocaine 5% Patch 1 PATCH TOPICAL ×2 (11:07→20:39)
[2021-07-21] MEDS: pantoprazole DR 40 mg Tablet PO (11:07)
[2021-07-21 11:43] LABS: Glucose Point of Care 192 mg/dL (70-110)
[2021-07-21 11:51] VITALS: BP 101/68; PULSE 103; RESP 18; TEMP 36.4; O2SAT 98
[2021-07-21] MEDS: insulin lispro 100 unit/1 mL SUBCUT ×2 (14:03→21:55)
--- NOTE | 2021-07-21 14:36 | PC.CHAP ---
Pastoral Care Encounter/Spiritual Assessment Type of Contact [] Declined clinical data programmer visit [] Patient/Family/Request visit [] Outpatient visit [xx] Follow-up visit [] Physician referral [] Code/Alert [] Routine visit [] Staff referral [] Actively dying [] Patient sleeping [] Family support [] [] Out of room [] Palliative care [] [xx] Receiving care in room [] Pre-surgical visit [] Trauma [xx] Long length of stay [] ICU visit [] Other: Relational/Emotional Strength [] Patient feels connected with others/family/visitors/staff [] Distress [] Loneliness/isolation [] Abandonment Spirituality of Patient [] Person of Annette [] Attends Quaker of their Annette [] Believes in Prayer [] Reads Bible or Pentecostalism materials [] There are Spiritual issues to be addressed Senior Test Analyst Interventions [] Prayer [] Active listening [] Non-anxious presence [] Spiritual/emotional support [] Crisis/trauma care [] Spiritual counseling [] Bereavement support [] Provided bereavement packet [] Provided Bible/devotional materials [] Provided toy/stuffed animal, coloring book to patient or family member [] Provided Communion [] Anointing/[place] [] Salvation [] Completed spiritual assessment [] Other: Impact on Illness or Injury [] Angry [] Fearful [] Anxious [] Often cries [] Exhaustion [] Unable to work [] Unable to attend holiness [] Unable to walk/stand [] Unable to read [] Unable to drive [] Unable to eat/drink [] Unable to sleep [] Unable to be with family [] Patient intubated [] Other: Summary Follow up needed. Room was full of medical personnel for extended time. Time spent with patient
[2021-07-21 14:54] LABS: Anion Gap 18.7 (5-19); Blood Urea Nitrogen 44 mg/dL (6-20); Calcium 8.2 mg/dL (8.5-10.5); Carbon Dioxide 19 mmol/L (22-29); Chloride 101 mmol/L (98-107); Glomerular Filtration Rate 49.8 mL/min (90-130); Glucose 186 mg/dL (65-115); Osmolality Calculated 292 mOsm/kg (285-295); Potassium 5.7 mmol/L (3.5-5.1); Sodium 133 mmol/L (136-145)
--- NOTE | 2021-07-21 15:31 | PM.PN ---
Subjective Subjective: Interval history: This morning patient was seen, she sitting up beside the bed, combing her hair, she is wondering how her interview for her level 2 went, no nausea, no vomiting, she did have episodes of diarrhea overnight, she tells me that her loperamide was given to her overnight and she is wondering why Vitals/I&O/Wt Last Vital Signs Temp 97.6 F 07/21/21 11:51 Pulse 103 H 07/21/21 11:51 Resp 18 07/21/21 11:51 BP 101/68 07/21/21 11:51 Pulse Ox 98 07/21/21 11:51 07/21/21 07/21/21 07/21/21 06:59 14:59 22:59 Intake Total 0 / 1260 840.1 / 840.1 Output Total 600 / 600 Balance -600 / 660 840.1 / 840.1 Physical Exam Narrative: EXAM NARRATIVE: Cachectic, appearing Const: COMMON NORMALS: no acute distress and patient oriented x3 Resp: COMMON NORMALS: normal respiratory effort, No retractions, No use of accessory muscles and clear to auscultation bilaterally AUSCULTATION: clear to auscultation bilaterally Cardio: COMMON NORMALS: regular rate, regular rhythm, S1 normal heart sound present and S2 normal heart sound present RATE: regular rate RHYTHM: regular rhythm HEART SOUNDS: S1 normal heart sound present and S2 normal heart sound present GI: COMMON NORMALS: Normal to inspection, nondistended, normoactive bowel sounds present, Soft to palpation and non-tender PALPATION: Yes Soft to palpation Extremity: COMMON NORMALS: no pedal edema Neuro: COMMON NORMALS: patient oriented x3 Psych: COMMON NORMALS: mental status grossly normal Data : 07/21/21 04:50 07/21/21 14:15 A&P Assessment and plan (1) Depression: Status: Acute Qualifiers: Active/Remission status: currently active Depression Type: major depressive disorder Major depression episode severity: severe Major depression recurrence: recurrent Psychotic features: without psychotic features Qualified Code(s): F33.2 - Major depressive disorder, recurrent severe without psychotic features (2) Adult failure to thrive: Status: Acute (3) Dehydration: Status: Acute (4) Hyperglycemia: Status: Acute (5) Homeless: Status: Acute (6) Decubitus ulcers: Status: Acute Qualifiers: Pressure injury location: buttock (7) Severe protein-calorie malnutrition: Status: Acute (8) Type 1 diabetes mellitus: Status: Acute Qualifiers: Diabetes mellitus complication status: with hyperglycemia Qualified Code(s): E10.65 - Type 1 diabetes mellitus with hyperglycemia (9) Generalized weakness: Status: Acute (10) Hypokalemia: Status: Acute Additional A&P Information 41 year old lady with protein calorie malnutrition, BMI 12, presenting today with hyperglycemia (has not taken insulin in a month), dehydration, cachexia. Admit to med/surg BMI increased to 15.8 Hyperkalemia, potassium 5.6, was given 10 units of insulin, D50 Kayexalate, potassium remains 5.7 will repeat dosing insulin, D50, scheduled Kayexalate every 6 hours, no chest pain complaints Creatinine is also elevated to 1.2, start normal saline Increasing blood sugar, increase Levemir to 8 units twice daily Insulin sliding scale, no current signs of DKA/ HHS, check Hba1c 19 CT chest abdomen and pelvis without signs of malignancy, denies any dysphagia, states poor po intake is due to depression and deconditioning Nutrition consult,, PT/OT evaluaton Encourage p.o. intake, calorie intake as per nutrition, Ensure drinks TSH within normal limits Depression, continue home paroxetine, add Remeron at nighttime, continue Xanax HIV, acute hep panel negative, celiac and KELLY panel within normal limits Hypokalemia, within normal limits, Hypomagnesemia, continue to monitor, will replace Hypophosphatemia, continue to monitor Diarrhea, stool studies so far unremarkable we will repeat, continue loperamide as prior stool studies have been unremarkable Patient will likely need correction placement, currently awaiting level 2 Decubitus ulcers, wound care, repositioning PT OT Attestations Medical Necessity Statement*: Patient requires hospitalization for hyperkalemia, MARCELA, adult failure to thrive 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 of Care Code Acute Automated Cutting Machine Operator for [facility] Fwd Diagnoses Depression F33.2 Active/Remission status: currently active Depression Type: major depressive disorder Major depression episode severity: severe Major depression recurrence: recurrent Psychotic features: without psychotic features Adult failure to thrive R62.7 Dehydration E86.0 Hyperglycemia R73.9 Homeless Z59.00 Decubitus ulcers L89.90 Pressure injury location: buttock Severe protein-calorie malnutrition E43 Type 1 diabetes mellitus E10.65 Diabetes mellitus complication status: with hyperglycemia Generalized weakness R53.1 Hypokalemia E87.6
--- NOTE | 2021-07-21 15:32 | XRR_ITS ---
PROCEDURE INFORMATION: Exam: XR Abdomen Exam date and time: 07/21/2021 3:32 PM Age: 41 years old Clinical indication: Bloating; Prior surgery; Surgery type: , gb, appy; Patient HX: History--increased blood sugars/ PT states she has no abd pain or discomfort; Additional info: Abdominal distention TECHNIQUE: Imaging protocol: XR of the abdomen. Views: Frontal supine view of the abdomen. 1 View. COMPARISON: CT abdomen pelvis w con* [id number] 06/26/2021 3:56 PM FINDINGS: Gastrointestinal tract: Distended stomach. No bowel dilation. Moderate colonic stool burden. Bones/joints: Unremarkable. XR/XR KUB portable [id number] IMPRESSION: Distended stomach. Moderate colonic stool burden.
[2021-07-21 16:00] VITALS: BP 132/72; PULSE 91; RESP 18; TEMP 36.9; O2SAT 97
[2021-07-21 16:55] LABS: Glucose Point of Care 75 mg/dL (70-110)
[2021-07-21] MEDS: sodium chloride 0.9% 1,000 ML 100 ML IV (18:45)
[2021-07-21] MEDS: calcium gluconate 0.9% NaCL 1 GM/50 ML PREMIX IV (18:45)
[2021-07-21 20:00] VITALS: BP 162/93; PULSE 92; RESP 19; TEMP 36.5; O2SAT 99
[2021-07-21] MEDS: mirtazapine 15 mg Tablet 7.5 MG PO (20:38)
[2021-07-21 21:15] LABS: Glucose Point of Care 180 mg/dL (70-110)
[2021-07-21 23:40] LABS: Anion Gap 14.3 (5-19); Blood Urea Nitrogen 43 mg/dL (6-20); Calcium 7.7 mg/dL (8.5-10.5); Carbon Dioxide 24 mmol/L (22-29); Chloride 103 mmol/L (98-107); Glomerular Filtration Rate 49.8 mL/min (90-130); Glucose 159 mg/dL (65-115); Osmolality Calculated 298 mOsm/kg (285-295); Potassium 4.3 mmol/L (3.5-5.1); Sodium 137 mmol/L (136-145)
[2021-07-22] VITALS: BP 131/86; PULSE 99; RESP 20; TEMP 36.6; O2SAT 96
[2021-07-22] MEDS: sodium polystyrene sulfonate 15 gm/60 mL Btl PO ×2 (03:09→21:41)
[2021-07-22 04:00] VITALS: BP 135/71; PULSE 90; RESP 17; TEMP 37.2; O2SAT 98
[2021-07-22] MEDS: sodium chloride 0.9% 1,000 ML 100 ML IV ×2 (04:54→14:30)
[2021-07-22 05:28] LABS: Basophils % 0.5 %; Eosinophils # 0.1 10^3/uL (0.0-0.8); Eosinophils % 1.4 %; Hematocrit 34.4 % (37.0-47.0); Hemoglobin 11.1 g/dL (11.5-15.3); Lymphocytes # 2.4 10^3/uL (0.8-4.8); Lymphocytes % 41.7 %; Mean Corpuscular HGB Conc 32.3 g/dL (30.0-36.0); Mean Corpuscular Hemoglobin 28.8 pg (28.0-34.0); Mean Corpuscular Volume 89.4 fl (81-99); Mean Platelet Volume 9.5 fL (7.4-10.4); Monocytes # 0.5 10^3/uL (0.2-0.9); Monocytes % 8.6 %; Neutrophils % 47.1 %; Nucleated Red Blood Cells % 0 %; Platelet Count 324 10^3/cmm (130-400); Red Blood Count 3.85 10^6/uL (4.1-5.3); Red Cell Distribution Width 15.5 % (12.1-15.1); White Blood Count 5.7 10^3/uL (4.0-10.0)
[2021-07-22 05:43] LABS: Alanine Aminotransferase 24 U/L (0-33); Albumin Level 2.7 g/dL (3.5-5.2); Alkaline Phosphatase 119 IU/L (35-105); Anion Gap 16.1 (5-19); Aspartate Amino Transferase 27 U/L (0-32); Blood Urea Nitrogen 40 mg/dL (6-20); Calcium 8.6 mg/dL (8.5-10.5); Carbon Dioxide 23 mmol/L (22-29); Chloride 106 mmol/L (98-107); Glomerular Filtration Rate 61.4 mL/min (90-130); Glucose 73 mg/dL (65-115); Magnesium 1.9 mg/dL (1.7-2.3); Osmolality Calculated 300 mOsm/kg (285-295); Phosphorus 4.2 mg/dL (2.5-4.5); Potassium 4.1 mmol/L (3.5-5.1); Sodium 141 mmol/L (136-145); Total Bilirubin 0.2 mg/dL (0.15-1.2); Total Protein 4.7 g/dL (6.6-8.7)
[2021-07-22 06:32] LABS: Glucose Point of Care 125 mg/dL (70-110)
--- NOTE | 2021-07-22 07:05 | PM.PN ---
Subjective Subjective: Interval history: Patient seems to be doing well this morning. No pain. She is trying to eat and drink a little bit better. Sounds like she has been approved for placement on Saturday. No chest pain or shortness of breath. No fevers or chills. Medications: Reviewed: Yes Medication Review Details: Current Medications Acetaminophen (Acetaminophen 325 Mg Tablet) 650 mg PO Q6H PRN PRN Reason: Mild/Mod Pain Or Temp >/= 101 Last Admin: 07/21/21 11:06 Dose: 650 mg Documented by: Al Hydrox/Mg Hydrox/Simethicone (Wjkb-Hxw-Glabglzpy-Erin 30 Ml Udc) 15 ml PO Q6H PRN PRN Reason: INDIGESTION Dextrose (Dextrose 50% Syringe 50 Ml) 25 ml IVP ONCE PRN; Protocol PRN Reason: hypoglycemia protocol Dextrose (Dextrose 50% Syringe 50 Ml) 50 ml IVP PRN PRN; Protocol PRN Reason: hypoglycemia protocol Enoxaparin Sodium (Enoxaparin 40 Mg/0.4 Ml Syringe) 40 mg SUBCUT Q24H PENDING SALE TO [facility] Last Admin: 07/21/21 11:07 Dose: 40 mg Documented by: Gabapentin (Gabapentin 100 Mg Capsule) 100 mg PO TID PENDING SALE TO [facility] Last Admin: 07/21/21 20:38 Dose: 100 mg Documented by: Glucagon (Glucagon 1 Mg/Ml Inj 1 Ml) 1 mg IM ONCE PRN; Protocol PRN Reason: Adult Acute Hypoglycemia Prot. Dextrose (D5w) 500 mls @ 100 mls/hr IV ONCE PRN; Protocol PRN Reason: Adult Acute Hypoglycemia Prot Sodium Chloride (Sodium Chloride 0.9%) 1,000 mls @ 100 mls/hr IV .Q10H PENDING SALE TO [facility] Last Admin: 07/22/21 04:54 Dose: 100 mls/hr Documented by: Insulin Detemir (Insulin Detemir 100 Units/1 Ml) 8 unit SUBCUT Q12H PENDING SALE TO [facility] Last Admin: 07/21/21 21:55 Dose: 8 unit Documented by: Insulin Human Lispro (Insulin Lispro 100 Unit/1 Ml) 0 unit SUBCUT WM&BEDTIME PENDING SALE TO [facility]; Protocol Last Admin: 07/21/21 21:55 Dose: 4 unit Documented by: Lidocaine (Lidocaine 5% Patch) 1 patch TOPICAL [id number] PENDING SALE TO [facility] Last Admin: 07/21/21 20:39 Dose: 1 patch Documented by: Loperamide HCl (Loperamide 2 Mg Capsule) 2 mg PO QID PRN PRN Reason: DIARRHEA Last Admin: 07/18/21 21:48 Dose: 2 mg Documented by: Metoprolol Tartrate (Metoprolol Tartrate 25 Mg Tablet) 12.5 mg PO BID PENDING SALE TO [facility] Last Admin: 07/21/21 18:46 Dose: 12.5 mg Documented by: Mirtazapine (Mirtazapine 15 Mg Tablet) 7.5 mg PO BEDTIME PENDING SALE TO [facility] Last Admin: 07/21/21 20:38 Dose: 7.5 mg Documented by: Multivitamins Therapeutic (Multivitamin Therapeutic Tablet) 1 tab PO DAILY PENDING SALE TO [facility] Last Admin: 07/21/21 11:07 Dose: 1 tab Documented by: Ondansetron HCl (Ondansetron 2 Mg/Ml Sdv 2 Ml) 4 mg IVP Q8H PRN PRN Reason: vomiting, or N/V if npo Last Admin: 07/20/21 15:40 Dose: 4 mg Documented by: Pantoprazole Sodium (Pantoprazole Dr 40 Mg Tablet) 40 mg PO DAILY PENDING SALE TO [facility] Last Admin: 07/21/21 11:07 Dose: 40 mg Documented by: Paroxetine HCl (Paroxetine 20 Mg Tablet) 20 mg PO DAILY PENDING SALE TO [facility] Last Admin: 07/21/21 11:06 Dose: 20 mg Documented by: Sodium Polystyrene Sulfonate (Sodium Polystyrene Sulfonate 15 Gm/60 Ml Btl) 15 gm PO Q6H PENDING SALE TO [facility] Last Admin: 07/22/21 03:09 Dose: 15 gm Documented by: Vitals/I&O/Wt Last Vital Signs Temp 99.0 F 07/22/21 04:00 Pulse 90 07/22/21 04:00 Resp 17 07/22/21 04:00 BP 135/71 07/22/21 04:00 Pulse Ox 98 07/22/21 04:00 07/21/21 07/22/21 07/22/21 22:59 06:59 14:59 Intake Total 470.1 / 2930.2 1620 / 2930.2 Output Total 3000 / 3800 800 / 3800 Balance -2529.9 / -869.8 820 / -869.8 Physical Exam Narrative: EXAM NARRATIVE: General: No acute distress, Alert. Not well nourished. Heart: Regular rate and rhythm. No murmurs, rubs or gallops. Normal capillary refill. Lungs: Clear to auscultation. No wheezes, rhonchi or rales. Abdomen: Positive bowel sounds. Non-tender, non-distended. No hepatosplenomegaly. No gaurding. Extremities: No clubbing, cyanosis, or edema. Negative Ofelia's Data : 07/22/21 04:19 07/22/21 04:19 A&P Assessment and plan (1) Adult failure to thrive: Status: Acute (2) Depression: Status: Acute Qualifiers: Active/Remission status: currently active Depression Type: major depressive disorder Major depression episode severity: severe Major depression recurrence: recurrent Psychotic features: without psychotic features Qualified Code(s): F33.2 - Major depressive disorder, recurrent severe without psychotic features (3) Severe protein-calorie malnutrition: Status: Acute (4) Type 1 diabetes mellitus: Status: Acute Qualifiers: Diabetes mellitus complication status: with hyperglycemia Qualified Code(s): E10.65 - Type 1 diabetes mellitus with hyperglycemia Additional A&P Information Overall patient seems to be stable at this time. We are just awaiting placement in nursing facility on Saturday. Attestations Medical Necessity Statement*: 41-year-old female with dehydration and cachexia with severe depression requiring continued inpatient monitoring while we await residential placement. 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 of Care Code Acute Wood Drilling Machine Operator for [facility] Fwd Diagnoses Adult failure to thrive R62.7 Depression F33.2 Active/Remission status: currently active Depression Type: major depressive disorder Major depression episode severity: severe Major depression recurrence: recurrent Psychotic features: without psychotic features Severe protein-calorie malnutrition E43 Type 1 diabetes mellitus E10.65 Diabetes mellitus complication status: with hyperglycemia
[2021-07-22 07:58] VITALS: BP 159/83; PULSE 102; RESP 16; TEMP 37.1; O2SAT 96
[2021-07-22] MEDS: gabapentin 100 mg Capsule PO ×3 (08:56→20:11)
[2021-07-22] MEDS: PARoxetine 20 mg Tablet PO (08:56)
[2021-07-22] MEDS: metoprolol tartrate 25 mg Tablet 12.5 MG PO ×2 (08:56→18:17)
[2021-07-22] MEDS: multivitamin therapeutic Tablet 1 TAB PO (08:56)
[2021-07-22] MEDS: pantoprazole DR 40 mg Tablet PO (08:56)
[2021-07-22] MEDS: lidocaine 5% Patch 1 PATCH TOPICAL ×2 (08:57→20:14)
[2021-07-22] MEDS: enoxaparin 40 mg/0.4 mL Syringe SUBCUT (08:57)
[2021-07-22] MEDS: acetaminophen 325 mg Tablet 650 MG PO ×2 (09:18→18:17)
[2021-07-22 11:16] VITALS: BP 152/84; PULSE 99; RESP 16; TEMP 36.9; O2SAT 97
[2021-07-22 11:35] LABS: Glucose Point of Care 277 mg/dL (70-110)
[2021-07-22] MEDS: insulin lispro 100 unit/1 mL SUBCUT ×2 (12:53→21:41)
[2021-07-22 15:39] VITALS: BP 163/90; PULSE 96; RESP 16; TEMP 36.8; O2SAT 97
[2021-07-22 17:27] LABS: Glucose Point of Care 132 mg/dL (70-110)
[2021-07-22 20:00] VITALS: BP 175/80; PULSE 92; RESP 22; TEMP 36.3; O2SAT 99
[2021-07-22] MEDS: mirtazapine 15 mg Tablet 7.5 MG PO (20:11)
[2021-07-22 20:58] LABS: Glucose Point of Care 224 mg/dL (70-110)
[2021-07-23] VITALS (7 sets, daily range): BP systolic 150–176; BP diastolic 83–96; PULSE 91–110; RESP 18–20; TEMP 36.7–37.2; O2SAT 92–99
[2021-07-23] MEDS: sodium chloride 0.9% 1,000 ML 100 ML IV ×2 (02:57→15:26)
[2021-07-23] MEDS: sodium polystyrene sulfonate 15 gm/60 mL Btl PO ×4 (02:58→21:43)
[2021-07-23 05:31] LABS: Basophils % 0.6 %; Eosinophils # 0.1 10^3/uL (0.0-0.8); Eosinophils % 1.4 %; Hematocrit 35.7 % (37.0-47.0); Hemoglobin 11.2 g/dL (11.5-15.3); Lymphocytes # 2.6 10^3/uL (0.8-4.8); Lymphocytes % 39.9 %; Mean Corpuscular HGB Conc 31.4 g/dL (30.0-36.0); Mean Corpuscular Hemoglobin 28.4 pg (28.0-34.0); Mean Corpuscular Volume 90.4 fl (81-99); Mean Platelet Volume 9.2 fL (7.4-10.4); Monocytes # 0.5 10^3/uL (0.2-0.9); Monocytes % 8.2 %; Neutrophils # 3.27 10^3/uL (1.8-7.7); Neutrophils % 49.3 %; Nucleated Red Blood Cells % 0 %; Platelet Count 308 10^3/cmm (130-400); Red Blood Count 3.95 10^6/uL (4.1-5.3); Red Cell Distribution Width 15.4 % (12.1-15.1); White Blood Count 6.6 10^3/uL (4.0-10.0)
[2021-07-23 05:52] LABS: Alanine Aminotransferase 24 U/L (0-33); Albumin Level 2.6 g/dL (3.5-5.2); Alkaline Phosphatase 109 IU/L (35-105); Anion Gap 15.1 (5-19); Aspartate Amino Transferase 24 U/L (0-32); Blood Urea Nitrogen 30 mg/dL (6-20); Calcium 8.9 mg/dL (8.5-10.5); Carbon Dioxide 22 mmol/L (22-29); Chloride 111 mmol/L (98-107); Globulin 2.1 g/dL (1.3-4.6); Glomerular Filtration Rate 92.7 mL/min (90-130); Glucose 60 mg/dL (65-115); Magnesium 1.8 mg/dL (1.7-2.3); Osmolality Calculated 302 mOsm/kg (285-295); Phosphorus 3.5 mg/dL (2.5-4.5); Potassium 4.1 mmol/L (3.5-5.1); Sodium 144 mmol/L (136-145); Total Bilirubin 0.2 mg/dL (0.15-1.2); Total Protein 4.7 g/dL (6.6-8.7)
[2021-07-23 06:27] LABS: Glucose Point of Care 114 mg/dL (70-110)
--- NOTE | 2021-07-23 07:37 | P.PN_ITS ---
Subjective Subjective: Interval history: Patient seems to be doing well this morning. No pain. She is trying to eat and drink a little bit better. No chest pain or shortness of breath. She is still awaiting placement tomorrow. Medications: Reviewed: Yes Medication Review Details: Current Medications Acetaminophen (Acetaminophen 325 Mg Tablet) 650 mg PO Q6H PRN PRN Reason: Mild/Mod Pain Or Temp >/= 101 Last Admin: 07/21/21 11:06 Dose: 650 mg Documented by: Al Hydrox/Mg Hydrox/Simethicone (Irey-Wyk-Ivzragssn-Erin 30 Ml Udc) 15 ml PO Q6H PRN PRN Reason: INDIGESTION Dextrose (Dextrose 50% Syringe 50 Ml) 25 ml IVP ONCE PRN; Protocol PRN Reason: hypoglycemia protocol Dextrose (Dextrose 50% Syringe 50 Ml) 50 ml IVP PRN PRN; Protocol PRN Reason: hypoglycemia protocol Enoxaparin Sodium (Enoxaparin 40 Mg/0.4 Ml Syringe) 40 mg SUBCUT Q24H [facility] Last Admin: 07/21/21 11:07 Dose: 40 mg Documented by: Gabapentin (Gabapentin 100 Mg Capsule) 100 mg PO TID [facility] Last Admin: 07/21/21 20:38 Dose: 100 mg Documented by: Glucagon (Glucagon 1 Mg/Ml Inj 1 Ml) 1 mg IM ONCE PRN; Protocol PRN Reason: Adult Acute Hypoglycemia Prot. Dextrose (D5w) 500 mls @ 100 mls/hr IV ONCE PRN; Protocol PRN Reason: Adult Acute Hypoglycemia Prot Sodium Chloride (Sodium Chloride 0.9%) 1,000 mls @ 100 mls/hr IV .Q10H [facility] Last Admin: 07/22/21 04:54 Dose: 100 mls/hr Documented by: Insulin Detemir (Insulin Detemir 100 Units/1 Ml) 8 unit SUBCUT Q12H [facility] Last Admin: 07/21/21 21:55 Dose: 8 unit Documented by: Insulin Human Lispro (Insulin Lispro 100 Unit/1 Ml) 0 unit SUBCUT WM&BEDTIME [facility]; Protocol Last Admin: 07/21/21 21:55 Dose: 4 unit Documented by: Lidocaine (Lidocaine 5% Patch) 1 patch TOPICAL [id number] [facility] Last Admin: 07/21/21 20:39 Dose: 1 patch Documented by: Loperamide HCl (Loperamide 2 Mg Capsule) 2 mg PO QID PRN PRN Reason: DIARRHEA Last Admin: 07/18/21 21:48 Dose: 2 mg Documented by: Metoprolol Tartrate (Metoprolol Tartrate 25 Mg Tablet) 12.5 mg PO BID [facility] Last Admin: 07/21/21 18:46 Dose: 12.5 mg Documented by: Mirtazapine (Mirtazapine 15 Mg Tablet) 7.5 mg PO BEDTIME [facility] Last Admin: 07/21/21 20:38 Dose: 7.5 mg Documented by: Multivitamins Therapeutic (Multivitamin Therapeutic Tablet) 1 tab PO DAILY [facility] Last Admin: 07/21/21 11:07 Dose: 1 tab Documented by: Ondansetron HCl (Ondansetron 2 Mg/Ml Sdv 2 Ml) 4 mg IVP Q8H PRN PRN Reason: vomiting, or N/V if npo Last Admin: 07/20/21 15:40 Dose: 4 mg Documented by: Pantoprazole Sodium (Pantoprazole Dr 40 Mg Tablet) 40 mg PO DAILY [facility] Last Admin: 07/21/21 11:07 Dose: 40 mg Documented by: Paroxetine HCl (Paroxetine 20 Mg Tablet) 20 mg PO DAILY [facility] Last Admin: 07/21/21 11:06 Dose: 20 mg Documented by: Sodium Polystyrene Sulfonate (Sodium Polystyrene Sulfonate 15 Gm/60 Ml Btl) 15 gm PO Q6H [facility] Last Admin: 07/22/21 03:09 Dose: 15 gm Documented by: Vitals/I&O/Wt Last Vital Signs Temp 98.1 F 07/23/21 04:00 Pulse 91 07/23/21 04:00 Resp 20 H 07/23/21 04:00 BP 174/93 07/23/21 04:00 Pulse Ox 96 07/23/21 04:00 07/22/21 07/23/21 07/23/21 22:59 06:59 14:59 Intake Total 1110 / 3620 1300 / 3620 Output Total 1250 / 3050 1800 / 3050 Balance -140 / 570 -500 / 570 Physical Exam Narrative: EXAM NARRATIVE: General: No acute distress, Alert. Not well nourished. Heart: Regular rate and rhythm. No murmurs, rubs or gallops. Normal capillary refill. Lungs: Clear to auscultation. No wheezes, rhonchi or rales. Abdomen: Positive bowel sounds. Non-tender, non-distended. No hepatosplenomegaly. No gaurding. Extremities: No clubbing, cyanosis, or edema. Negative Ofelia's Data : 07/23/21 04:49 07/23/21 04:49 A&P Assessment and plan (1) Adult failure to thrive: Status: Acute (2) Depression: Status: Acute Qualifiers: Active/Remission status: currently active Depression Type: major depressive disorder Major depression episode severity: severe Major depression recurrence: recurrent Psychotic features: without psychotic features Qualified Code(s): F33.2 - Major depressive disorder, recurrent severe without psychotic features (3) Severe protein-calorie malnutrition: Status: Acute (4) Type 1 diabetes mellitus: Status: Acute Qualifiers: Diabetes mellitus complication status: with hyperglycemia Qualified Code(s): E10.65 - Type 1 diabetes mellitus with hyperglycemia Additional A&P Information Overall patient seems to be stable at this time. We are just awaiting placement in nursing facility on Saturday. Attestations Medical Necessity Statement*: 41-year-old female with dehydration and severe malnutrition awaiting placement in nursing facility. Still requires inpatient monitoring until this is accomplished. 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
[2021-07-23] MEDS: lidocaine 5% Patch 1 PATCH TOPICAL ×2 (08:41→21:42)
[2021-07-23] MEDS: pantoprazole DR 40 mg Tablet PO (08:41)
[2021-07-23] MEDS: PARoxetine 20 mg Tablet PO (08:41)
[2021-07-23] MEDS: multivitamin therapeutic Tablet 1 TAB PO (08:41)
[2021-07-23] MEDS: gabapentin 100 mg Capsule PO ×3 (08:41→20:26)
[2021-07-23] MEDS: metoprolol tartrate 25 mg Tablet 12.5 MG PO ×2 (08:41→17:41)
[2021-07-23] MEDS: enoxaparin 40 mg/0.4 mL Syringe SUBCUT (08:42)
[2021-07-23] MEDS: acetaminophen 325 mg Tablet 650 MG PO ×2 (08:56→17:45)
[2021-07-23 11:10] LABS: Glucose Point of Care 351 mg/dL (70-110)
[2021-07-23] MEDS: insulin lispro 100 unit/1 mL SUBCUT ×2 (13:39→21:42)
[2021-07-23 15:29] LABS: Adenovirus Not Detected (NOT DETECT); Chlamydia Pneumoniae Not Detected (NOT DETECT); Coronavirus 229E,HKU1,NL63,OC4 Not Detected (NOT DETECT); Human Metapneumovirus Not Detected (NOT DETECT); Human Rhinovirus/Enterovirus Not Detected (NOT DETECT); Influenza A Not Detected (NOT DETECT); Influenza A H1 Not Detected (NOT DETECT); Influenza A H1-2009 Not Detected (NOT DETECT); Influenza A H3 Not Detected (NOT DETECT); Influenza B Not Detected (NOT DETECT); Mycoplasma Pneumoniae Not Detected (NOT DETECT); Parainfluenza Virus Type 1 Not Detected (NOT DETECT); Parainfluenza Virus Type 2 Not Detected (NOT DETECT); Parainfluenza Virus Type 3 Not Detected (NOT DETECT); Parainfluenza Virus Type 4 Not Detected (NOT DETECT); Respiratory Syncytial Virus A Not Detected (NOT DETECT); Respiratory Syncytial Virus B Not Detected (NOT DETECT); SARS-COV-2 Not Detected (NOT DETECT)
[2021-07-23 17:06] LABS: Glucose Point of Care 93 mg/dL (70-110)
[2021-07-23] MEDS: mirtazapine 15 mg Tablet 7.5 MG PO (20:26)
[2021-07-23 21:42] LABS: Glucose Point of Care 303 mg/dL (70-110)
[2021-07-24] MEDS: sodium chloride 0.9% 1,000 ML 100 ML IV ×2 (01:30→10:32)
[2021-07-24] MEDS: sodium polystyrene sulfonate 15 gm/60 mL Btl PO ×2 (03:17→08:01)
[2021-07-24 03:44] VITALS: BP 152/84; PULSE 107; RESP 16; TEMP 36.7; O2SAT 92
[2021-07-24 06:42] LABS: Glucose Point of Care 84 mg/dL (70-110)
[2021-07-24 07:54] VITALS: BP 161/89; PULSE 114; RESP 18; TEMP 37.3; O2SAT 90
[2021-07-24] MEDS: pantoprazole DR 40 mg Tablet PO (08:01)
[2021-07-24] MEDS: metoprolol tartrate 25 mg Tablet 12.5 MG PO ×2 (08:01→16:47)
[2021-07-24] MEDS: PARoxetine 20 mg Tablet PO (08:01)
[2021-07-24] MEDS: gabapentin 100 mg Capsule PO ×2 (08:01→16:48)
[2021-07-24] MEDS: enoxaparin 40 mg/0.4 mL Syringe SUBCUT (08:01)
[2021-07-24] MEDS: multivitamin therapeutic Tablet 1 TAB PO (08:01)
[2021-07-24] MEDS: lidocaine 5% Patch 1 PATCH TOPICAL (08:04)
--- NOTE | 2021-07-24 10:55 | P.DS_ITS ---
Discharge Providers Date of Admission: 06/27/21 06:22 Date of Discharge: July 24, 2021 Attending Provider at Admission: Olga Wang MD Attending Provider at Discharge: Olga Wang MD Diagnoses at Discharge Discharge Diagnosis (1) Adult failure to thrive: Status: Acute (2) Depression: Status: Acute Qualifiers: Active/Remission status: currently active Depression Type: major depressive disorder Major depression episode severity: severe Major depression recurrence: recurrent Psychotic features: without psychotic features Qualified Code(s): F33.2 - Major depressive disorder, recurrent severe without psychotic features (3) Severe protein-calorie malnutrition: Status: Acute (4) Type 1 diabetes mellitus: Status: Acute Qualifiers: Diabetes mellitus complication status: with hyperglycemia Qualified Code(s): E10.65 - Type 1 diabetes mellitus with hyperglycemia Reason for Visit Reason for Visit: DEHYDRATION/ EMACIATION/ HIGH BS Hospital Course Hospital Course Mariana Ace is a 41 year old female with type 1 DM, poorly complaint with medications, H/o depression, severe protein calorie malnutrition BMI 12,dating back to at least 2017, had a PEG tube in the past to assist with feeding. She presented to [facility] June 27, 2021 after being found at home by her landlord to be disheveled, unable to get out of her recliner for the past month, covered in feces and urine as she reported significant weakness and inability to get out of bed. She was dehydrated, had some stage II decubitus ulcers over her back which are improving at this time. Also had electrolyte abnormalitiws [facility] had corrected. Had not taken her insulin in over one month. Hba1c returned at 19.4. Insulin treatment has been resumed in the hopsital. She has lost her apartment as unable to keep up with rent. In order to ensure safe discharge and continued monitoring of her severe malnutrition, SNF placement was recommended and one has been obtained now. She was evaluated by nutrition services- please see their notes for recommendations. 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 Ext: stage 1-2 scrapes and pressure injury over buttocks, no open wounds Discharge Data Data Completed and Pending: Completed Studies During Hospitalization Category Date Time Status CT abdomen pelvis w con* [id number] Urge nt Cat Scan 06/26/21 15:[address] angio chest PE protcl [id number] Urge nt Cat Scan 06/26/21 19:13 Completed XR KUB portable 7 [id number] Routine Exams 07/21/21 15:32 Completed XR chest 1V sanjeev ble [id number] Urgent Exams 06/26/21 17:46 Completed XR chest 1V sanjeev ble [id number] Urgent Exams 06/26/21 18:40 Completed Pending at discharge Category Date Time Status Clostridioides Di fficile PCR Routin e Lab 07/21/21 15:32 Ordered Enteric Bacterial Panel by PCR Rout ine Lab 07/21/21 15:32 Ordered Enteric Parasite Panel by PCR Routi ne Lab 07/21/21 15:32 Ordered Immunochemical Fe senait OCB Routine Lab 07/21/21 15:32 Ordered Lactoferrin Routi ne Lab 07/21/21 15:32 Ordered Labs from last 24 hours 07/24/21 07/23/21 07/23/21 06:32 20:54 16:49 POC Glucose 84 303 H 93 Coronavirus 229E ( PCR) SARS-CoV-2 (PCR) 07/23/21 07/23/21 13:34 10:51 POC Glucose 351 H Coronavirus 229E ( PCR) Not detected SARS-CoV-2 (PCR) Not detected Vitals: Last Vital Signs Temp 99.2 F 07/24/21 07:54 Pulse 114 H 07/24/21 07:54 Resp 18 07/24/21 07:54 BP 161/89 07/24/21 07:54 Pulse Ox 90 07/24/21 07:54 Discharge Plan Discharge Patient Disposition: Xfer SNF Condition: Stable Prescriptions: New multivitamin with folic acid [Thera] 400 mcg Tablet 1 tab PO DAILY Qty: 30 RF: 0 loperamide 2 mg Capsule 2 mg PO QID PRN (Reason: Diarrhea) Qty: 10 RF: 0 mirtazapine 15 mg Tablet 7.5 mg PO BEDTIME Qty: 30 RF: 0 insulin lispro [Humalog U-100 Insulin] 100 unit/mL Solution See Rx Instructions .ROUTE .COMPLEX Qty: 10 RF: 0 Levemir U-100 Insulin 100 unit/mL Solution 8 unit SUBCUT Q12H Qty: 10 RF: 0 Continued paroxetine HCl [Paxil] 20 mg tablet 20 mg PO QAM RF: 0 gabapentin 100 mg capsule 100 mg PO TID MDD see pharmacy comment RF: 0 ondansetron HCl 4 mg tablet 4 mg PO Q8H PRN (Reason: Nausea) RF: 0 metoprolol tartrate 25 mg tablet 12.5 mg PO BID MDD see pharmacy comment RF: 0 acetaminophen 325 mg capsule 325 mg PO Q6H PRN (Reason: Pain) RF: 0 pantoprazole 40 mg tablet,delayed release (DR/EC) 40 mg PO QAM RF: 0 lidocaine [Lidoderm] 5 % adhesive patch,medicated 1 patch TOPICAL DAILY PRN (Reason: Pain) RF: 0 Systane Balance 0.6 % drops 1 drop ophthalmic (eye) BID PRN (Reason: Dry Eyes) RF: 0 Discontinued insulin glargine 100 unit/mL cartridge 23 unit SUBCUT DAILY RF: 0 melatonin 3 mg capsule 3 mg PO BEDTIME RF: 0 Novolog Flexpen U-100 Insulin 100 unit/mL (3 mL) insulin pen 1 unit SUBCUT TID RF: 0 alprazolam [Xanax] 0.25 mg tablet 0.25 mg PO TID MDD see pharmacy comment PRN (Reason: Anxiety) RF: 0 ketotifen fumarate 0.025 % (0.035 %) drops 1 drop ophthalmic (eye) BID RF: 0 polyethylene glycol 3350 [Miralax] 17 gram powder in packet 17 gm PO BID PRN (Reason: Constipation) RF: 0 loperamide 2 mg capsule 2 mg PO Q6H PRN (Reason: Diarrhea) RF: 0 Lidocaine Viscous 2 % solution 1 applic MUCOUS MEM QID PRN (Reason: Pain) RF: 0 cetirizine [Zyrtec] 10 mg tablet 10 mg PO DAILY RF: 0 meloxicam 7.5 mg tablet 7.5 mg PO DAILY MDD see pharmacy comment PRN (Reason: arthritis pain) RF: 0 Discharge Orders: Discharge Order (Routine); Ordered 07/24/21 Ordered By: Olga Wang Referrals: John Pena MD, [facility] [place] Department] - Discharge Diet: Advance as tolerated and As Directed Discharge Activity: Resume usual activity Activity Restrictions/Additional Instructions: patient has stage to stage 2 decubitus ulcers- no skin break- recommend use of diaper cream locally over the area . Discharge Attestations Time Spent in Discharge Care*: greater than 30 min Quality Metrics Clinical Quality Measures During this hospital stay, did patient experience: None 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 of Care Code Acute Chg FW DC note Diagnoses Adult failure to thrive R62.7 Depression F33.2 Active/Remission status: currently active Depression Type: major depressive disorder Major depression episode severity: severe Major depression recurrence: recurrent Psychotic features: without psychotic features Severe protein-calorie malnutrition E43 Type 1 diabetes mellitus E10.65 Diabetes mellitus complication status: with hyperglycemia
[2021-07-24 11:14] LABS: Glucose Point of Care 265 mg/dL (70-110)
--- NOTE | 2021-07-24 11:17 | PC.OT ---
PATIENT STATES THAT SHE IS GOING TO SNF TODAY. DECLINES THERAPY TREATMENT AT THIS TIME.
[2021-07-24] MEDS: insulin lispro 100 unit/1 mL SUBCUT (11:46)
[2021-07-24] MEDS: acetaminophen 325 mg Tablet 650 MG PO (11:46)
[2021-07-24 12:00] VITALS: BP 155/88; PULSE 93; RESP 17; TEMP 36.9; O2SAT 97
--- NOTE | 2021-07-24 13:30 | PC.NURSE ---
Report called to [facility] [place]. director field services notified so transportation can be set up.
[2021-07-24 16:00] VITALS: BP 125/76; PULSE 107; RESP 18; TEMP 36.6; O2SAT 98
[2021-07-24 16:06] LABS: Glucose Point of Care 98 mg/dL (70-110)
[2021-07-24 17:05] VITALS: BP 125/76; PULSE 107; RESP 18; TEMP 36.6; O2SAT 98
== END 2021-07-24 17:06 | disposition skilled nursing facility (03) | DRG 641 ==
LOC: ER 06-27 04:50 → ER IP 06-27 07:50 → MEDSURG 06-27 14:07
PROVIDERS: Family Medicine; Internal Medicine; Physician Assistant; Admitting Provider Student in an Organized Health Care Education/Training Program; Emergency Provider Emergency Medicine; Visit Provider Student in an Organized Health Care Education/Training Program
DX: E43 Unspecified severe protein-calorie malnutrition (principal); Z68.1 Body mass index [BMI] 19.9 or less, adult; F33.2 Major depressive disorder, recurrent severe without psychotic features; E10.65 Type 1 diabetes mellitus with hyperglycemia; T38.3X6A Underdosing of insulin and oral hypoglycemic [antidiabetic] drugs, initial encounter; Z91.128 Patient's intentional underdosing of medication regimen for other reason; E86.0 Dehydration; Z86.14 Personal history of Methicillin resistant Staphylococcus aureus infection; F17.210 Nicotine dependence, cigarettes, uncomplicated; F43.21 Adjustment disorder with depressed mood; Z59.00 Homelessness unspecified; L89.42 Pressure ulcer of contiguous site of back, buttock and hip, stage 2; R62.7 Adult failure to thrive; E87.6 Hypokalemia; E83.42 Hypomagnesemia; R19.7 Diarrhea, unspecified
CPT/HCPCS: 12345; 36415; 36416; 36600; 71045; 71275; 74018; 74177; 80048; 80051; 80053; 81001; 82009; 82274; 82330; 82784; 82805; 82947; 82962; 83036; 83516; 83630; 83735; 83880; 84100; 84145; 84439; 84443; 84703; 85025; 86160; 86162; 86235; 86255; 86376; 86592; 86705; 86706; 86709; 86803; 87040; 87340; 87493; 87506; 87635; 87806; 96372; 97110; 97116; 97162; 97165; 97530; 97535; 99285; J0610; J0696; J1650; J1815; J1940; J2405; J3411; J3475; J3480; J3490; J7030; P9047; Q0144; Q9967

== ENCOUNTER 2021-08-16 16:59 | Inpatient (IN) | payer MEDICAID, SELFPAY ==
[2021-08-16] VITALS (18 sets, daily range): BP systolic 105–160; BP diastolic 75–110; PULSE 86–128; RESP 7–32; TEMP 36–36.1; O2SAT 73–99
--- NOTE | 2021-08-16 17:08 | ECG_ITS ---
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 Measurements Intervals [place] Rate: 117 P: 63 TN: 158 QRS: 41 QRSD: 80 T: 88 QT: 307 QTc: 429 Interpretive Statements SINUS TACHYCARDIA LEFT ATRIAL ENLARGEMENT [-0.15mV P-WAVE IN V1/V2] POSSIBLE RIGHT VENTRICULAR CONDUCTION DELAY [RSR (QR) IN V1/V2] POSSIBLE ANTERIOR MYOCARDIAL INFARCTION , OF INDETERMINATE AGE [30 ms Q WAVE IN V3/V4, OR R < 0.2 mV IN V4] Compared to ECG 05/22/2018 17:58:03 Atrial abnormality now present Myocardial infarct finding now present Atrial flutter no longer present Left ventricular hypertrophy no longer present Electronically Signed On 08-16-2021 21:21:09 INSPECTOR RAG S[employer]ING by Angelic Ding M.D. [id number]
--- NOTE | 2021-08-16 17:08 | XRR_ITS ---
PROCEDURE INFORMATION: Exam: XR Chest Exam date and time: 08/16/2021 5:08 PM Age: 41 years old Clinical indication: Dyspnea; Additional info: Dyspnea/cough, et tube check TECHNIQUE: Imaging protocol: XR of the chest. Views: 1 view. COMPARISON: CR XR chest 1V portable [id number] 06/26/2021 6:45 PM FINDINGS: Tubes, catheters and devices: Endotracheal tube terminates 4 cm above the lavon. Lungs: Ill-defined opacities noted throughout both lungs. Pleural spaces: Unremarkable. No pleural effusion. No pneumothorax. Heart/Mediastinum: Unremarkable. No cardiomegaly. Bones/joints: Unremarkable. XR/XR chest 1V portable [id number] IMPRESSION: 1. Endotracheal tube in proper position above the lavon. 2. Ill-defined opacities noted throughout both lungs.
[2021-08-16] MEDS: succinylcholine 20 mg/mL SDV 10mL 90 MG IVP (17:20)
--- NOTE | 2021-08-16 17:24 | ED_ITS ---
Documented by User: Jose Francisco Marquis DO 08/17/21 11:41 HPI - SOB/Dyspnea General: Chief Complaint: Shortness of Breath/Dyspnea Stated Complaint: RESPIRATORY DISTRESS Time Seen by Provider: 08/16/21 17:07 History of Present Illness: HPI Narrative: 41-year-old female presents to the emergency room with severe respiratory distress on arrival she is on BiPAP and satting in the 80s. EMS reports that she was at 5 L at the senior living and setting 78%. Patient was brought from [facility] to [place] on EMS BiPAP. On arrival here she is in acute respiratory distress pending respiratory failure. The report 60 mg Decadron has been given as well as nebulized DuoNeb in route. Quick review of patient's records the EMS reports that they were told she is full code the face sheet on her senior living paperwork says full code there is a Do Not Recussitate in the paperwork though when asked the patient she states she wants us to do everything to keep her alive including intubation. She denies chest pain or a bdominal pain. Patient was intubated via RSI shortly after this. Old records reviewed in chart. MD elicited complaint: shortness of breath Pertinent past history: diabetes Onset (ago): minute(s) Timing: constant Severity: moderate Exacerbating factors: nothing Relieving factors: nothing Known history of: diabetes Associated symptoms: Reports cough; Deny abdominal pain or chest pain Treatment prior to arrival: oxygen, bronchodilator and other (Steroids) Review of Systems General: Reports: ROS unobtainable due to medical condition Card: Denies: chest pain GI: Denies: abdominal pain [facility] ED PFSH: Medical History Aftercare following surgery of the genitourinary system Patient is a status post diagnostic laparoscopy with lysis of adhesions and appendectomy 2 weeks ago. No complications. Patient was counseled regarding pathology report showing acute appendicitis. Follow-up in 4 weeks Breast lump on right side at 9 o'clock position C. difficile colitis Decubitus ulcers MRSA (methicillin resistant staph aureus) culture positive Patient denies medical problems Perinephric abscess History of perinephric and retroperitoneal abscess with yeast in 2018, required percutaneous drainage and had complicated hospital course with respiratory failure, gram-negative pneumonia, thoracentesis, BiPAP therapy requirement, intolerance of oral intake, PEG tube placement, intolerance of tube feeds Secondary amenorrhea 39-year-old female with secondary amenorrhea. Progestin challenge test described Patient referred to the progestin challenge test she had a withdrawal bleeding from 05/07/2019 to 05/13/2019. Trichotillomania Surgical History deliv NOS-unsp 1999 History of cholecystectomy 2011 History of tubal ligation 2000 S/P appendectomy S/P laparoscopy 05/20/2019- Diagnostic Laparoscopy, Lysis of Adhesions performed by Dr. Shah at [facility] Appendectomy performed by Dr. Robledo on 05/20/2019 Family History Grandmother Diabetes MATERNAL Cancer paternal Grandfather Heart disease maternal Cancer paternal Family/Other Breast cancer Paternal Aunt Social History Smoking and tobacco status: current every day smoker cigarettes Packs smoked per day: 1 Years cigarettes smoked: 28 Alcohol intake: never Additional social history: Well balanced diet Physical Exam Const: ORIENTATION/CONSCIOUSNESS: Yes awake HENMT: COMMON NORMALS: normocephalic, atraumatic and hearing grossly normal bilaterally HEAD & SCALP: normocephalic and atraumatic Neck/C-Spine: COMMON NORMALS: no JVD Resp: COMMON NORMALS: normal respiratory effort, No retractions, No use of accessory muscles and clear to auscultation bilaterally AUSCULTATION: clear to auscultation bilaterally Cardio: COMMON NORMALS: no JVD, regular rhythm and No murmurs present (Cardio) RATE: tachycardic RHYTHM: regular rhythm GI: COMMON NORMALS: Soft to palpation and No hepatosplenomegaly present AUSCULTATION: Yes normoactive bowel sounds PALPATION: Yes Soft to palpation, No Tenderness to palpation present (GI), No Guarding due to palpation present (GI) and Yes No hepatosplenomegaly present Extremity: COMMON NORMALS: no pedal edema Skin: COMMON NORMALS: no rashes or lesions noted GENERAL SKIN EXAM: no rashes or lesions noted Procedures Intubation Time out performed: Yes sedative: Etomidate paralytic: Succinylcholine Laryngoscope: fiber optic video scope Assist Device Used: fiber optic device ET Tube Size: 8 ET Tube Uncuffed: No Tube Secured Depth (cm): 21 Tube Secured Location: teeth Tube Placement Confirmation: visualized tube passing through cords, equal breath sounds bilaterally, no breath sounds over epigastrium and confirmation by capnometry Patient Tolerated Procedure: well Course Vital Signs: Vital signs: Vital Signs Temperature 98.7 F 08/17/21 07:30 Pulse Rate 105 H 08/17/21 10:00 Respiratory Rate 12 08/17/21 11:12 Blood Pressure 86/49 08/17/21 10:00 Pulse Oximetry 96 08/17/21 11:12 MDM - SOB/Dyspnea Medical Decision Making Care signed out to Dr. marie at change of shift. See his final notes for agustin gnosis and disposition. Patient care handoff received from Dr. Marquis pending completion of ED e valuation admission to the hospital. Patient was already intubated upon my exam. I personally repeated the hoffmann portions of E/M. Patient unable to provide information for history of present illness or review of systems. GENERAL/CONSTITUTIONAL - somewhat ill appearing. Sedated and intubated Eyes - PERRL, no conjunctival injection ENMT - Atraumatic external nose and ears. Moist mucous membranes NECK - supple. trachea midline CARDIOVASCULAR - tachycardic rate and rhythm. Peripheral pulses 2+ and equal. Cap refill normal. RESPIRATORY - coarse to auscultation bilaterally. Intubated and on ventilator, does not appear to overbreathing ventilator. ABDOMEN/GI - no grimace to palpation, Nondistended. MSK - Extremities without obvious deformity or tenderness to palpation. Trace to 1+ pitting edema bilateral symmetric SKIN - Warm, Dry. Minor erythema on the buttocks likely related to stage I or less pressure injury. No evidence of deep wounds. NEURO - sedated. Somnolent. Patient does open eyes to stimuli and appears to interact appropriately, when asked if the patient is in pain she nodded her head no . Patient moves all extremities. PSYCH - unable to assess Medical, surgical, family, social history reviewed in chart. Unable to verify with patient given current medical state. - Labs notable for leukocytosis, normal hemoglobin. Metabolic panel with mild hyperkalemia, no evidence of peaked T waves on EKG. IV fluids given. Creatinine above baseline. Mild transaminitis of unclear significance, likely related to overall critical illness. BNP is elevated. 2 hour troponin increase 8.94, likely also secondary to critical illness. Urinalysis not concerning for urinary tract infection. Covid negative. - Imaging notable for review of chest x-ray with bilateral infiltrates. ET tube in satisfactory condition. I personally reviewed and interpreted subsequent to x-rays, one for central line placement as documented in procedures and one for confirmation of NG tube placement. Central line in satisfactory position. NG tube in satisfactory position. - Upon serial reexamination after treatment the patient was similar. Patient more comfortable with up titration of Versed drip rate and fentanyl drip rate. Heart rate improved. - Based on patient history, evaluation, labs, and imaging as interpreted the most likely cause of the patient's condition is sepsis secondary to pneumonia resulting in acute hypercapnic and hypoxic respiratory failure requiring intubation.. - Admitting service was contacted and Dr Oro with the hospitalist service agreed to admit the patient - Patient was admitted without further deterioration or significant events. - Patient remains critically ill and admitted to the ICU. I personally performed critical care time in addition to time that Dr. Marquis spent performing critical care. Documented in critical care section. Winston Kahn MD Emergency Medicine Lab Data : 08/17/21 04:50 08/17/21 04:50 Labs/Radiology: Radiology Impressions Chest CTA 08/16/21 20:49 IMPRESSION: 1. No evidence of pulmonary embolism. 2. Bilateral pleural effusions. 3. Bronchitis and pneumonia. 4. Interstitial pulmonary edema. Chest X-Ray 08/16/21 22:46 IMPRESSION: 1. NG tube tip is in the stomach. 2. No change in pulmonary disease. Laboratory Results WBC 18.5 10^3/uL (4.0-10.0) H 08/16/21 17:35 RBC 4.50 10^6/uL (4.1-5.3) 08/16/21 17:35 Hgb 13.1 g/dL (11.5-15.3) 08/16/21 17:35 Hct 42.2 % (37.0-47.0) 08/16/21 17:35 MCV 93.8 fl (81-99) 08/16/21 17:35 MCH 29.1 pg (28.0-34.0) 08/16/21 17:35 MCHC 31.0 g/dL (30.0-36.0) 08/16/21 17:35 RDW 15.8 % (12.1-15.1) H 08/16/21 17:35 Plt Count 298 10^3/cmm (130-400) 08/16/21 17:35 MPV 9.4 fL (7.4-10.4) 08/16/21 17:35 Neut % (Auto) 77.6 % 08/16/21 17:35 Lymph % (Auto) 15.4 % 08/16/21 17:35 Mcdowell % (Auto) 5.1 % 08/16/21 17:35 Eos % (Auto) 0.8 % 08/16/21 17:35 Baso % (Auto) 0.5 % 08/16/21 17:35 Neut # (Auto) 14.37 10^3/uL (1.8-7.7) H 08/16/21 17:35 Lymph # (Auto) 2.9 10^3/uL (0.8-4.8) 08/16/21 17:35 Mcdowell # (Auto) 0.9 10^3/uL (0.2-0.9) 08/16/21 17:35 Eos # (Auto) 0.2 10^3/uL (0.0-0.8) 08/16/21 17:35 Baso # (Auto) 0.1 10^3/uL (0.0-0.1) 08/16/21 17:35 Nucleated RBC % (auto) 0 % 08/16/21 17:35 Nucleated RBCs # 0.0 /100WBC 08/16/21 17:35 Specimen Type Arterial 08/16/21 18:16 Sample Site Radial, left 08/16/21 18:16 ABG pH 7.28 (7.35-7.45) L 08/16/21 18:16 ABG pCO2 58.1 mmHg (35-45) H 08/16/21 18:16 ABG pO2 134.0 mmHg (80.0-100.0) H 08/16/21 18:16 ABG HCO3 27.0 mmol/L (22-26) H 08/16/21 18:16 ABG O2 Saturation 99.3 08/16/21 18:16 ABG Base Excess -0.6 mmol/L (-2.0-2.0) 08/16/21 18:16 Kaushik Test Pos 08/16/21 18:16 A-a O2 Gradient 47.1 mmHg (5-10) H 08/16/21 18:16 Hematocrit 35.3 % (37-47) L 08/16/21 18:16 Hgb O2 Saturation 96.4 % (95-100) 08/16/21 18:16 Carboxyhemoglobin 2.1 %THgb (0.4-20.1) 08/16/21 18:16 Methemoglobin 0.7 % (0.4-1.5) 08/16/21 18:16 Total Hemoglobin 11.5 g/dL (12-16) L 08/16/21 18:16 Sodium 140.0 mmol/L (131-143) 08/16/21 18:16 Potassium 5.3 mmol/L (3.5-5.0) H 08/16/21 18:16 Glucose 145.0 mg/dL (70-115) H 08/16/21 18:16 Ionized Calcium 1.2 mmol/L (1.1-1.4) 08/16/21 18:16 O2 Delivery Device Vent 08/16/21 18:16 FiO2 80.0 % 08/16/21 18:16 Tidal Volume 0.35 08/16/21 18:16 PEEP 8.0 cmH20 08/16/21 18:16 Integration Analyst ID Cak 08/16/21 18:16 Sodium 141 mmol/L (136-145) 08/16/21 17:35 Potassium 5.7 mmol/L (3.5-5.1) H 08/16/21 17:35 Chloride 107 mmol/L (98-107) 08/16/21 17:35 Carbon Dioxide 27 mmol/L (22-29) 08/16/21 17:35 Anion Gap 12.7 (5-19) 08/16/21 17:35 BUN 34 mg/dL (6-20) H 08/16/21 17:35 Creatinine 1.0 mg/dL (0.5-0.9) H 08/16/21 17:35 GFR Calculation 61.4 mL/min (90-130) L 08/16/21 17:35 Glucose 102 mg/dL (65-115) 08/16/21 17:35 Calculated Osmolality 300 mOsm/kg (285-295) H 08/16/21 17:35 Lactic Acid 1.6 mmol/L (0.5-2.2) 08/16/21 18:50 Calcium 8.6 mg/dL (8.5-10.5) 08/16/21 17:35 Total Bilirubin 0.2 mg/dL (0.15-1.2) 08/16/21 17:35 AST 42 U/L (0-32) H 08/16/21 17:35 ALT 37 U/L (0-33) H 08/16/21 17:35 Alkaline Phosphatase 180 IU/L (35-105) H 08/16/21 17:35 Creatine Kinase 135 U/L (26-192) 08/16/21 17:35 Troponin T Baseline 56 ng/L (0-10) H 08/16/21 17:35 NT-Pro-B Natriuret Pep 4376 pg/mL (0-125) H 08/16/21 17:35 Total Protein 6.0 g/dL (6.6-8.7) L 08/16/21 17:35 Albumin 2.9 g/dL (3.5-5.2) L 08/16/21 17:35 Globulin 3.1 g/dL (1.3-4.6) 08/16/21 17:35 HCG, Qual Negative (Negative) 08/16/21 17:35 Urine Color Yellow (Yellow) 08/16/21 18:32 Urine Appearance Clear (CLEAR) 08/16/21 18:32 Urine pH 6.5 (5-7) 08/16/21 18:32 Ur Specific Matthews 1.015 (1.005-1.030) 08/16/21 18:32 Urine Protein 3+ (Negative) H 08/16/21 18:32 Urine Glucose (UA) Trace (Normal) H 08/16/21 18:32 Urine Ketones Negative (Negative) 08/16/21 18:32 Urine Blood Neg (Negative) 08/16/21 18:32 Urine Nitrate Negative (Negative) 08/16/21 18:32 Urine Bilirubin Neg (Negative) 08/16/21 18:32 Urine Urobilinogen Norm mg/dL (Negative) 08/16/21 18:32 Ur Leukocyte Esterase Negative (Negative) 08/16/21 18:32 Urine RBC 0-4 /hpf (0-2) H 08/16/21 18:32 Urine WBC 0-4 /hpf (0-5) H 08/16/21 18:32 Ur Squamous Epith Cells 0-4 /hpf (0-5) H 08/16/21 18:32 Amorphous Sediment Not Reportable 08/16/21 18:32 Urine Bacteria Trace /hpf (NONE) 08/16/21 18:32 Urine Opiates Screen Negative ng/mL (Negative) 08/16/21 18:32 Ur Barbiturates Screen Negative ng/mL (Negative) 08/16/21 18:32 Ur Phencyclidine Scrn Negative ng/mL (Negative) 08/16/21 18:32 Ur Amphetamines Screen Negative ng/mL (Negative) 08/16/21 18:32 U Benzodiazepines Scrn Negative ng/mL (Negative) 08/16/21 18:32 Urine Cocaine Screen Negative ng/mL (Negative) 08/16/21 18:32 U Marijuana (THC) Screen Negative ng/mL (Negative) 08/16/21 18:32 Serum Ketones Negative (Negative) 08/16/21 17:35 Coronavirus 229E (PCR) Not detected (NOT DETECT) 08/16/21 17:59 Hepatitis A IgM Ab Non-reactive (Nonreactive) 08/16/21 17:35 Hep Bs Antigen Non-reactive (Nonreactive) 08/16/21 17:35 Hep B Core IgM Ab Non-reactive (Nonreactive) 08/16/21 17:35 Hepatitis C Antibody Non-reactive (Nonreactive) 08/16/21 17:35 SARS-CoV-2 (PCR) Not detected (NOT DETECT) 08/16/21 17:59 Critical Care Time Critical Care Time: Total Critical Care Time: 40 Attestation: The high probability of a clinically significant, sudden or life threatening d eterioration of the patient's respiratory system(s) required my full and direct attention, intervention and personal management. The critical care time is as shown. This time is in addition to time spent performing any reported procedures but includes the following: [x] Data and vital sign review and interpretation [x] Patient assessment, examination and intervention [x] Documentation [x] Medication orders and management Discharge Plan Discharge Patient Disposition: Admitted As Inpatient Admit Provider: Ab Oro Clinical Impression: Acute respiratory failure with hypoxia and hypercapnia, Pneumonia, Sepsis Condition: Stable Sign Out Sign Out Data: Patient Sign Out occurred on 08/16/21 at 18:10. Patient's care was discussed, and care was transferred from to Winston Kahn MD. 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 of Care Code ED Insurance Underwriting Assistant for Chg Fwd Exam Comprehensive Documented by User: Winston Kahn MD 08/16/21 23:52 HPI - SOB/Dyspnea General: Chief Complaint: Shortness of Breath/Dyspnea Stated Complaint: RESPIRATORY DISTRESS Time Seen by Provider: 08/16/21 17:07 PFSH ED PFSH: Medical History Aftercare following surgery of the genitourinary system Patient is a status post diagnostic laparoscopy with lysis of adhesions and appendectomy 2 weeks ago. No complications. Patient was counseled regarding pathology report showing acute appendicitis. Follow-up in 4 weeks Breast lump on right side at 9 o'clock position C. difficile colitis Decubitus ulcers MRSA (methicillin resistant staph aureus) culture positive Patient denies medical problems Perinephric abscess History of perinephric and retroperitoneal abscess with yeast in 2018, required percutaneous drainage and had complicated hospital course with re spiratory failure, gram-negative pneumonia, thoracentesis, BiPAP therapy requirement, intolerance of oral intake, PEG tube placement, intolerance of tube feeds Secondary amenorrhea 39-year-old female with secondary amenorrhea. Progestin challenge test described Patient referred to the progestin challenge test she had a withdrawal bleeding from 05/07/2019 to 05/13/2019. Trichotillomania Surgical History deliv NOS-unsp 1999 History of cholecystectomy 2011 History of tubal ligation 2000 S/P appendectomy S/P laparoscopy 05/20/2019- Diagnostic Laparoscopy, Lysis of Adhesions performed by Dr. Shah at [facility] Appendectomy performed by Dr. Robledo on 05/20/2019 Family History Grandmother Diabetes MATERNAL Cancer paternal Grandfather Heart disease maternal Cancer paternal Family/Other Breast cancer Paternal Aunt Social History Smoking and tobacco status: current every day smoker cigarettes Packs smoked per day: 1 Years cigarettes smoked: 28 Alcohol intake: never Additional social history: Well balanced diet Procedures Central Line Placement Right IJ: Time Out Performed: Yes Patient Placed on Monitor/Pulse Ox: Yes MD Prep: mask, gown and gloves Central Line Prep: Povidone-Iodine 1%, Chlorhexidine scrub and sterile drapes applied Local Anesthetic: lidocaine 1% Amount of anesthesia used (mL): 1 Ultrasound Used for Placement: Yes Central Line Lumen Inserted: triple Post Procedure: sutured in place, good blood return, all ports aspirated, flushed, capped and sterile dressing applied Post Procedure X-Ray: tip of catheter in good position and no pneumothorax seen Patient Tolerated Procedure: well Complications: none Course Vital Signs: Vital signs: Vital Signs Temperature 98.7 F 08/17/21 07:30 Pulse Rate 105 H 08/17/21 10:00 Respiratory Rate 12 08/17/21 11:12 Blood Pressure 86/49 08/17/21 10:00 Pulse Oximetry 96 08/17/21 11:12 MDM - SOB/Dyspnea Medical Decision Making Patient care handoff received from Dr. Marquis pending completion of ED evaluation admission to the hospital. Patient was already intubated upon my exam. I personally repeated the hoffmann portions of E/M. Patient unable to provide information for history of present illness or review of systems. GENERAL/CONSTITUTIONAL - somewhat ill appearing. Sedated and intubated Eyes - PERRL, no conjunctival injection ENMT - Atraumatic external nose and ears. Moist mucous membranes NECK - supple. trachea midline CARDIOVASCULAR - tachycardic rate and rhythm. Peripheral pulses 2+ and equal. Cap refill normal. RESPIRATORY - coarse to auscultation bilaterally. Intubated and on ventilator, does not appear to overbreathing ventilator. ABDOMEN/GI - no grimace to palpation, Nondistended. MSK - Extremities without obvious deformity or tenderness to palpation. Trace to 1+ pitting edema bilateral symmetric SKIN - Warm, Dry. Minor erythema on the buttocks likely related to stage I or less pressure injury. No evidence of deep wounds. NEURO - sedated. Somnolent. Patient does open eyes to stimuli and appears to interact appropriately, when asked if the patient is in pain she nodded her head no . Patient moves all extremities. PSYCH - unable to assess Medical, surgical, family, social history reviewed in chart. Unable to verify with patient given current medical state. - Labs notable for leukocytosis, normal hemoglobin. Metabolic panel with mild hyperkalemia, no evidence of peaked T waves on EKG. IV fluids given. Creatinine above baseline. Mild transaminitis of unclear significance, likely related to overall critical illness. BNP is elevated. 2 hour troponin increase 8.94, likely also secondary to critical illness. Urinalysis not concerning for urinary tract infection. Covid negative. - Imaging notable for review of chest x-ray with bilateral infiltrates. ET tube in satisfactory condition. I personally reviewed and interpreted subsequent to x-rays, one for central line placement as documented in procedures and one for confirmation of NG tube placement. Central line in satisfactory position. NG tube in satisfactory position. - Upon serial reexamination after treatment the patient was similar. Patient more comfortable with up titration of Versed drip rate and fentanyl drip rate. Heart rate improved. - Based on patient history, evaluation, labs, and imaging as interpreted the most likely cause of the patient's condition is sepsis secondary to pneumonia resulting in acute hypercapnic and hypoxic respiratory failure requiring intubation.. - Admitting service was contacted and Dr Oro with the hospitalist service agreed to admit the patient - Patient was admitted without further deterioration or significant events. - Patient remains critically ill and admitted to the ICU. I personally performed critical care time in addition to time that Dr. Marquis spent performing critical care. Documented in critical care section. Winston Kahn MD Emergency Medicine Lab Data : 08/17/21 04:50 08/17/21 04:50 Labs/Radiology: Radiology Impressions Chest CTA 08/16/21 20:49 IMPRESSION: 1. No evidence of pulmonary embolism. 2. Bilateral pleural effusions. 3. Bronchitis and pneumonia. 4. Interstitial pulmonary edema. Chest X-Ray 08/16/21 22:46 IMPRESSION: 1. NG tube tip is in the stomach. 2. No change in pulmonary disease. Laboratory Results WBC 18.5 10^3/uL (4.0-10.0) H 08/16/21 17:35 RBC 4.50 10^6/uL (4.1-5.3) 08/16/21 17:35 Hgb 13.1 g/dL (11.5-15.3) 08/16/21 17:35 Hct 42.2 % (37.0-47.0) 08/16/21 17:35 MCV 93.8 fl (81-99) 08/16/21 17:35 MCH 29.1 pg (28.0-34.0) 08/16/21 17:35 MCHC 31.0 g/dL (30.0-36.0) 08/16/21 17:35 RDW 15.8 % (12.1-15.1) H 08/16/21 17:35 Plt Count 298 10^3/cmm (130-400) 08/16/21 17:35 MPV 9.4 fL (7.4-10.4) 08/16/21 17:35 Neut % (Auto) 77.6 % 08/16/21 17:35 Lymph % (Auto) 15.4 % 08/16/21 17:35 Mcdowell % (Auto) 5.1 % 08/16/21 17:35 Eos % (Auto) 0.8 % 08/16/21 17:35 Baso % (Auto) 0.5 % 08/16/21 17:35 Neut # (Auto) 14.37 10^3/uL (1.8-7.7) H 08/16/21 17:35 Lymph # (Auto) 2.9 10^3/uL (0.8-4.8) 08/16/21 17:35 Mcdowell # (Auto) 0.9 10^3/uL (0.2-0.9) 08/16/21 17:35 Eos # (Auto) 0.2 10^3/uL (0.0-0.8) 08/16/21 17:35 Baso # (Auto) 0.1 10^3/uL (0.0-0.1) 08/16/21 17:35 Nucleated RBC % (auto) 0 % 02/16/22 17:35 Nucleated RBCs # 0.0 /100WBC 08/16/21 17:35 Specimen Type Arterial 08/16/21 18:16 Sample Site Radial, left 08/16/21 18:16 ABG pH 7.28 (7.35-7.45) L 08/16/21 18:16 ABG pCO2 58.1 mmHg (35-45) H 08/16/21 18:16 ABG pO2 134.0 mmHg (80.0-100.0) H 08/16/21 18:16 ABG HCO3 27.0 mmol/L (22-26) H 08/16/21 18:16 ABG O2 Saturation 99.3 08/16/21 18:16 ABG Base Excess -0.6 mmol/L (-2.0-2.0) 08/16/21 18:16 Kaushik Test Pos 08/16/21 18:16 A-a O2 Gradient 47.1 mmHg (5-10) H 08/16/21 18:16 Hematocrit 35.3 % (37-47) L 08/16/21 18:16 Hgb O2 Saturation 96.4 % (95-100) 08/16/21 18:16 Carboxyhemoglobin 2.1 %THgb (0.4-20.1) 08/16/21 18:16 Methemoglobin 0.7 % (0.4-1.5) 08/16/21 18:16 Total Hemoglobin 11.5 g/dL (12-16) L 08/16/21 18:16 Sodium 140.0 mmol/L (131-143) 08/16/21 18:16 Potassium 5.3 mmol/L (3.5-5.0) H 08/16/21 18:16 Glucose 145.0 mg/dL (70-115) H 08/16/21 18:16 Ionized Calcium 1.2 mmol/L (1.1-1.4) 08/16/21 18:16 O2 Delivery Device Vent 08/16/21 18:16 FiO2 80.0 % 08/16/21 18:16 Tidal Volume 0.35 08/16/21 18:16 PEEP 8.0 cmH20 08/16/21 18:16 Integration Analyst ID Cak 08/16/21 18:16 Sodium 141 mmol/L (136-145) 08/16/21 17:35 Potassium 5.7 mmol/L (3.5-5.1) H 08/16/21 17:35 Chloride 107 mmol/L (98-107) 08/16/21 17:35 Carbon Dioxide 27 mmol/L (22-29) 08/16/21 17:35 Anion Gap 12.7 (5-19) 08/16/21 17:35 BUN 34 mg/dL (6-20) H 08/16/21 17:35 Creatinine 1.0 mg/dL (0.5-0.9) H 08/16/21 17:35 GFR Calculation 61.4 mL/min (90-130) L 08/16/21 17:35 Glucose 102 mg/dL (65-115) 08/16/21 17:35 Calculated Osmolality 300 mOsm/kg (285-295) H 08/16/21 17:35 Lactic Acid 1.6 mmol/L (0.5-2.2) 08/16/21 18:50 Calcium 8.6 mg/dL (8.5-10.5) 08/16/21 17:35 Total Bilirubin 0.2 mg/dL (0.15-1.2) 08/16/21 17:35 AST 42 U/L (0-32) H 08/16/21 17:35 ALT 37 U/L (0-33) H 08/16/21 17:35 Alkaline Phosphatase 180 IU/L (35-105) H 08/16/21 17:35 Creatine Kinase 135 U/L (26-192) 08/16/21 17:35 Troponin T Baseline 56 ng/L (0-10) H 08/16/21 17:35 NT-Pro-B Natriuret Pep 4376 pg/mL (0-125) H 08/16/21 17:35 Total Protein 6.0 g/dL (6.6-8.7) L 08/16/21 17:35 Albumin 2.9 g/dL (3.5-5.2) L 08/16/21 17:35 Globulin 3.1 g/dL (1.3-4.6) 08/16/21 17:35 HCG, Qual Negative (Negative) 08/16/21 17:35 Urine Color Yellow (Yellow) 08/16/21 18:32 Urine Appearance Clear (CLEAR) 08/16/21 18:32 Urine pH 6.5 (5-7) 08/16/21 18:32 Ur Specific Matthews 1.015 (1.005-1.030) 08/16/21 18:32 Urine Protein 3+ (Negative) H 08/16/21 18:32 Urine Glucose (UA) Trace (Normal) H 08/16/21 18:32 Urine Ketones Negative (Negative) 08/16/21 18:32 Urine Blood Neg (Negative) 08/16/21 18:32 Urine Nitrate Negative (Negative) 08/16/21 18:32 Urine Bilirubin Neg (Negative) 08/16/21 18:32 Urine Urobilinogen Norm mg/dL (Negative) 08/16/21 18:32 Ur Leukocyte Esterase Negative (Negative) 08/16/21 18:32 Urine RBC 0-4 /hpf (0-2) H 08/16/21 18:32 Urine WBC 0-4 /hpf (0-5) H 08/16/21 18:32 Ur Squamous Epith Cells 0-4 /hpf (0-5) H 08/16/21 18:32 Amorphous Sediment Not Reportable 08/16/21 18:32 Urine Bacteria Trace /hpf (NONE) 08/16/21 18:32 Urine Opiates Screen Negative ng/mL (Negative) 08/16/21 18:32 Ur Barbiturates Screen Negative ng/mL (Negative) 08/16/21 18:32 Ur Phencyclidine Scrn Negative ng/mL (Negative) 08/16/21 18:32 Ur Amphetamines Screen Negative ng/mL (Negative) 08/16/21 18:32 U Benzodiazepines Scrn Negative ng/mL (Negative) 08/16/21 18:32 Urine Cocaine Screen Negative ng/mL (Negative) 08/16/21 18:32 U Marijuana (THC) Screen Negative ng/mL (Negative) 08/16/21 18:32 Serum Ketones Negative (Negative) 08/16/21 17:35 Coronavirus 229E (PCR) Not detected (NOT DETECT) 08/16/21 17:59 Hepatitis A IgM Ab Non-reactive (Nonreactive) 08/16/21 17:35 Hep Bs Antigen Non-reactive (Nonreactive) 08/16/21 17:35 Hep B Core IgM Ab Non-reactive (Nonreactive) 08/16/21 17:35 Hepatitis C Antibody Non-reactive (Nonreactive) 08/16/21 17:35 SARS-CoV-2 (PCR) Not detected (NOT DETECT) 08/16/21 17:59 Critical Care Time Critical Care Time: Critical Care Time: Yes Total Critical Care Time: 50 Attestation: Due to a high probability of clinically significant, possibly life threatening deterioration, the patient required my highest level of attention and prepar edness to intervene emergently and I personally spent this critical care time directly and personally managing the patient. This critical care time included obtaining a history; examining the patient; pulse oximetry; ordering and review of laboratory and imaging studies; arranging urgent treatment with development of a management plan; evaluation of patient's response to treatment; frequent reassessment; and, discussions with other providers as applicable. It was exclusive of separately billable procedures. Primary system involved respiratory with evidence of sepsis. Discharge Plan Discharge Patient Disposition: Admitted As Inpatient Admit Provider: Ab Oro Clinical Impression: Acute respiratory failure with hypoxia and hypercapnia, Pneumonia, Sepsis Condition: Stable Sign Out Sign Out Data: Patient Sign Out occurred on 08/16/21 at 18:10. Patient's care was discussed, and care was transferred from to Winston Kahn MD. 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
[2021-08-16 17:30] LABS: ABG PH Result 7.24 (7.35-7.45); Alveolar-Arterial Oxygen Gradi 66.6 mmHg (5-10); Arterial Blood Gas Hematocrit 36.5 % (37-47); Blood Gas Operator Identificat ED; Blood Gas Sample Site Brachial, left; Blood Gas Sample Type Arterial; Blood Gas Tidal Volume 0.35; Carboxyhemoglobin 2.7 %THgb (0.4-20.1); HCO3 ABG 27.5 mmol/L (22-26); HGB O2 Sat 95.9 % (95-100); Ionized Calcium Level - ABG 1.2 mmol/L (1.1-1.4); Oxygen Device VENT; Oxygen Saturation ABG 98.6; Total Hemoglobin 11.9 g/dL (12-16)
[2021-08-16] MEDS: propofol 10 mg/mL SDV 20 mL 50 MG IVP (17:35)
[2021-08-16] MEDS: vecuronium 10 mg SDV IVP (17:35)
[2021-08-16 17:44] LABS: Basophils # 0.1 10^3/uL (0.0-0.1); Basophils % 0.5 %; Eosinophils # 0.2 10^3/uL (0.0-0.8); Eosinophils % 0.8 %; Hematocrit 42.2 % (37.0-47.0); Hemoglobin 13.1 g/dL (11.5-15.3); Lymphocytes # 2.9 10^3/uL (0.8-4.8); Lymphocytes % 15.4 %; Mean Corpuscular Hemoglobin 29.1 pg (28.0-34.0); Mean Corpuscular Volume 93.8 fl (81-99); Mean Platelet Volume 9.4 fL (7.4-10.4); Monocytes # 0.9 10^3/uL (0.2-0.9); Monocytes % 5.1 %; Neutrophils # 14.37 10^3/uL (1.8-7.7); Neutrophils % 77.6 %; Nucleated Red Blood Cells % 0 %; Platelet Count 298 10^3/cmm (130-400); Red Cell Distribution Width 15.8 % (12.1-15.1); White Blood Count 18.5 10^3/uL (4.0-10.0)
[2021-08-16 18:26] LABS: ABG PCO2 58.1 mmHg (35-45); ABG PH Result 7.28 (7.35-7.45); Alveolar-Arterial Oxygen Gradi 47.1 mmHg (5-10); Arterial Blood Gas Hematocrit 35.3 % (37-47); Base Excess ABG -0.6 mmol/L (-2.0-2.0); Blood Gas Allen Test Pos; Blood Gas Operator Identificat CAK; Blood Gas Sample Site Radial, left; Blood Gas Sample Type Arterial; Blood Gas Tidal Volume 0.35; Carboxyhemoglobin 2.1 %THgb (0.4-20.1); HGB O2 Sat 96.4 % (95-100); Ionized Calcium Level - ABG 1.2 mmol/L (1.1-1.4); Methemoglobin 0.7 % (0.4-1.5); Oxygen Device VENT; Oxygen Saturation ABG 99.3; Potassium Level - ABG 5.3 mmol/L (3.5-5.0); Total Hemoglobin 11.5 g/dL (12-16)
[2021-08-16 18:31] LABS: Alanine Aminotransferase 37 U/L (0-33); Albumin Level 2.9 g/dL (3.5-5.2); Alkaline Phosphatase 180 IU/L (35-105); Anion Gap 12.7 (5-19); Aspartate Amino Transferase 42 U/L (0-32); Blood Urea Nitrogen 34 mg/dL (6-20); Calcium 8.6 mg/dL (8.5-10.5); Carbon Dioxide 27 mmol/L (22-29); Chloride 107 mmol/L (98-107); Creatine Phosphokinase 135 U/L (26-192); Globulin 3.1 g/dL (1.3-4.6); Glomerular Filtration Rate 61.4 mL/min (90-130); Glucose 102 mg/dL (65-115); Osmolality Calculated 300 mOsm/kg (285-295); Potassium 5.7 mmol/L (3.5-5.1); Sodium 141 mmol/L (136-145); Total Bilirubin 0.2 mg/dL (0.15-1.2)
[2021-08-16 18:47] LABS: Troponin(5th) Baseline 56 ng/L (0-10)
[2021-08-16 19:02] LABS: Ketone (Acetest) Serum Negative (Negative)
[2021-08-16 19:10] LABS: Add Urine Microscopic? YES; Bilirubin Urine Neg (Negative); Blood Urine Neg (Negative); Glucose Urine UA Trace (Normal); Ketones Urine Negative (Negative); Leukocyte Esterase Urine Negative (Negative); Nitrate Urine Negative (Negative); Protein Urine 3+ (Negative); Specific Gravity, Urine 1.015 (1.005-1.030); Urine Appearance Clear (CLEAR); Urine Color Yellow (Yellow); Urobilinogen Urine Norm (Negative); pH Urine 6.5 (5-7)
[2021-08-16 19:12] LABS: Bacteria Urine TRACE /hpf; RBC Urine 0-4 /hpf (0-2); Squamous Epithelial Cell Urine 0-4 /hpf (0-5); WBC Urine 0-4 /hpf (0-5)
[2021-08-16 19:22] LABS: NT Pro B Type Natriuretic Pept 4376 pg/mL (0-125)
[2021-08-16 19:30] LABS: Lactic Sepsis W/Reflex 1.6 mmol/L (0.5-2.2)
[2021-08-16] MEDS: sodium chloride 0.9% 1,000 ML 999 ML IV (19:35)
[2021-08-16 20:00] LABS: Adenovirus Not Detected (NOT DETECT); Chlamydia Pneumoniae Not Detected (NOT DETECT); Coronavirus 229E,HKU1,NL63,OC4 Not Detected (NOT DETECT); Human Metapneumovirus Not Detected (NOT DETECT); Human Rhinovirus/Enterovirus Not Detected (NOT DETECT); Influenza A Not Detected (NOT DETECT); Influenza A H1 Not Detected (NOT DETECT); Influenza A H1-2009 Not Detected (NOT DETECT); Influenza A H3 Not Detected (NOT DETECT); Influenza B Not Detected (NOT DETECT); Mycoplasma Pneumoniae Not Detected (NOT DETECT); Parainfluenza Virus Type 1 Not Detected (NOT DETECT); Parainfluenza Virus Type 2 Not Detected (NOT DETECT); Parainfluenza Virus Type 3 Not Detected (NOT DETECT); Parainfluenza Virus Type 4 Not Detected (NOT DETECT); Respiratory Syncytial Virus A Not Detected (NOT DETECT); Respiratory Syncytial Virus B Not Detected (NOT DETECT); SARS-COV-2 Not Detected (NOT DETECT)
--- NOTE | 2021-08-16 20:01 | ECG_ITS ---
[facility] Test Date: 2021-08-16 Pat Name: Mariana Ace Department: Room: [facility] Gender: Female Clinical Nursing Coordinator: : 1980 Requested By: Jose Francisco Pedraza Order Number: [id number] Katelin MD: Mustapha Stearns M.D. Measurements Intervals Premium Rate: 90 P: -1 IA: 166 QRS: 13 QRSD: 79 T: -30 QT: 379 QTc: 465 Interpretive Statements SINUS RHYTHM POSSIBLE LEFT ATRIAL ENLARGEMENT [-0.1mV P-WAVE IN V1/V2] POSSIBLE RIGHT VENTRICULAR CONDUCTION DELAY [RSR (QR) IN V1/V2] POSSIBLE ANTERIOR MYOCARDIAL INFARCTION , OF INDETERMINATE AGE [30 ms Q WAVE IN V3/V4, OR R < 0.2 mV IN V4] Compared to ECG 08/16/2021 17:36:12 Sinus tachycardia no longer present Myocardial infarct finding still present Electronically Signed On 08-17-2021 20:53:51 HOUSE OFFICER by Mustapha Stearns M.D. [id number]
[2021-08-16 20:22] LABS: ABG PCO2 42.6 mmHg (35-45); ABG PH Result 7.39 (7.35-7.45); Arterial Blood Gas Hematocrit 31.1 % (37-47); Base Excess ABG 0.7 mmol/L (-2.0-2.0); Blood Gas Allen Test Pos; Blood Gas Sample Site Radial, right; Blood Gas Sample Type Arterial; Carboxyhemoglobin 1.8 %THgb (0.4-20.1); HCO3 ABG 25.8 mmol/L (22-26); HGB O2 Sat 94.3 % (95-100); Ionized Calcium Level - ABG 1.1 mmol/L (1.1-1.4); Methemoglobin 0.8 % (0.4-1.5); Oxygen Device VENT; Oxygen Saturation ABG 96.8; Potassium Level - ABG 5.2 mmol/L (3.5-5.0); Total Hemoglobin 10.1 g/dL (12-16)
--- NOTE | 2021-08-16 20:23 | PM.HP ---
Providers/Chief Complaint Admitting Physician: Ab Oro MD, hospitalist Chief Complaint: RESPIRATORY DISTRESS History of Present Illness Mariana Ace is a 41 year old female who presents from [facility] with respiratory failure. According to nurses there she had a good day, had had no fever cough and had gone for a meal. She then returned to her room, and when someone checked on her they found her saturation 38%, minimally responsive, and respiratory distress. She had difficulty communicating what it happened secondary to her respiratory distress. EMS was called and she was transported to the hospital where BiPAP was tried for a short while, and then she was transitioned to the ventilator. Nursing facility reports no recent Covid in the building. She has not had any fever or cough. She typically does not have any trouble eating, issues with aspiration, breathing issues. She is normally on room air. Her last outing from the nursing facility was Saturday. She has struggled with some significant depression since her significant other 2 months ago. In the emergency department she was started on cefepime, and given IV fluids. She is currently on a drip of fentanyl and midazolam for sedation. Review of Systems General: Reports: ROS unobtainable due to endotracheal tube Medications/Allergies Home Medications Medication Instructions Recorded Confirmed Last Taken Type acetaminophen 325 mg capsule 325 mg PO Q6H PRN 07/03/19 08/16/21 Unknown History gabapentin 100 mg capsule 100 mg PO TID 07/03/19 08/16/21 08/16/21 History metoprolol tartrate 25 mg tablet 12.5 mg PO BID 07/03/19 08/16/21 08/16/21 History ondansetron HCl 4 mg tablet 4 mg PO Q8H PRN 07/03/19 08/16/21 Unknown History pantoprazole 40 mg tablet,delayed 40 mg PO QAM 07/03/19 08/16/21 08/16/21 History release paroxetine HCl 20 mg tablet (Paxil) 20 mg PO QAM 07/03/19 08/16/21 08/16/21 History propylene glycol 0.6 % eye drops 1 drop OPHTHALMIC (EYE) BID PRN 07/03/19 08/16/21 Unknown History (Systane Balance) mirtazapine 15 mg tablet 7.5 mg PO BEDTIME #30 tab 07/24/21 08/16/21 08/15/21 Rx multivitamin with folic acid 400 1 tab PO DAILY #30 tab 07/24/21 08/16/21 08/16/21 Rx mcg tablet (Thera) insulin aspart U-100 100 unit/mL See Rx Instructions .ROUTE .COMPLEX 08/16/21 08/16/21 Unknown History (3 mL) subcutaneous pen (Novolog Flexpen U-100 Insulin aspart) insulin glargine 100 unit/mL 16 unit SUBCUT DAILY 08/16/21 08/16/21 08/16/21 History subcutaneous solution (Lantus U-100 Insulin) magnesium hydroxide 400 mg/5 mL 30 ml PO DAILY PRN 08/16/21 08/16/21 Unknown History oral suspension (Milk of Magnesia) polyethylene glycol 3350 17 17 g PO DAILY PRN 08/16/21 08/16/21 Unknown History gram/dose oral powder (Miralax) sennosides 8.6 mg-docusate sodium 1 tab-cap PO BID PRN 08/16/21 08/16/21 Unknown History 50 mg tablet (Senna-S) Allergies Allergy/AdvReac Type Severity Reaction Status Date / Time sulfamethoxazole Allergy Rash, Verified 06/26/21 15:28 [From Bactrim] wheezing trimethoprim [From Bactrim] Allergy Rash, Verified 06/26/21 15:28 wheezing PFSH Acute PFSH: Medical History Aftercare following surgery of the genitourinary system Patient is a status post diagnostic laparoscopy with lysis of adhesions and appendectomy 2 weeks ago. No complications. Patient was counseled regarding pathology report showing acute appendicitis. Follow-up in 4 weeks Breast lump on right side at 9 o'clock position C. difficile colitis Decubitus ulcers MRSA (methicillin resistant staph aureus) culture positive Patient denies medical problems Perinephric abscess History of perinephric and retroperitoneal abscess with yeast in 2018, required percutaneous drainage and had complicated hospital course with respiratory failure, gram-negative pneumonia, thoracentesis, BiPAP therapy requirement, intolerance of oral intake, PEG tube placement, intolerance of tube feeds Secondary amenorrhea 39-year-old female with secondary amenorrhea. Progestin challenge test described Patient referred to the progestin challenge test she had a withdrawal bleeding from 05/07/2019 to 05/13/2019. Trichotillomania Surgical History deliv NOS-unsp 1999 History of cholecystectomy 2011 History of tubal ligation 2000 S/P appendectomy S/P laparoscopy 05/20/2019- Diagnostic Laparoscopy, Lysis of Adhesions performed by Dr. Shah at [facility] Appendectomy performed by Dr. Robledo on 05/20/2019 Family History Grandmother Diabetes MATERNAL Cancer paternal Grandfather Heart disease maternal Cancer paternal Family/Other Breast cancer Paternal Aunt Social History Smoking and tobacco status: current every day smoker cigarettes Packs smoked per day: 1 Years cigarettes smoked: 28 Alcohol intake: never Additional social history: Well balanced diet Vitals/I&O/Wt Last Vital Signs Temp 97.0 F L 08/16/21 17:00 Pulse 93 08/16/21 19:23 Resp 20 H 08/16/21 19:48 BP 108/77 08/16/21 19:23 Pulse Ox 98 08/16/21 19:23 08/16/21 08/16/21 08/16/21 06:59 14:59 22:59 Intake Total 0.917 / 0.917 Balance 0.917 / 0.917 Physical Exam Narrative: General exam is a white female, on the ventilator who opens her eyes and can follow some commands. HEENT: Pupils equally round. Oropharynx with endotracheal tube. I have instructed the ER to place an orogastric tube. Neck supple no lymphadenopathy or thyromegaly Cardiovascular regular rate and rhythm, no murmur Lungs clear no wheezing or crackles Abdomen is soft. Positive bowel sounds. No obvious organomegaly. Surgical scar noted. exam Fall noted Extremities no cyanosis clubbing or edema, cap refill brisk Skin no rash Neuro no focal deficits. Urinary Catheter Management: Fall: Cath Placed During This Visit: yes Urinary Catheter Date of Insertion: 08/16/21 Urinary Catheter Time of Insertion: 18:45 Data : 08/16/21 17:35 08/16/21 17:35 Other Labs: ABG on admission had a pH of 7.24, PCO2 of 64, PO2 of 121 on 100% on the ventilator. Currently she is 7.39, 43 with an FiO2 of 50%. Potassium 5.2 on ABG D-dimer is pending Urine drug screen ordered LFTs with slight elevation of AST ALT and alk phos of 42, 37 and 180. Bilirubin is normal. Lactic acid 1.6. Troponin 56 with repeat pending. BNP 4376. Urinalysis negative Salicylates acetaminophen pending Serum ketones negative Covid PCR negative Chest x-ray demonstrates questionable bibasilar infiltrates although this is not impressive. I have ordered some blood cultures. EKG demonstrated sinus tachycardia, normal axis, RSR prime V1 possibly consistent with intraventricular conduction delay right ventricle, poor R wave progression. A&P Assessment and plan (1) Acute respiratory failure with hypoxemia: Etiology uncertain at this point in time. This could represent an aspiration event, medication overdose, pulmonary embolism or even cardiac arrhythmia. Cannot even rule out a hypoglycemic event however blood sugar was 102 on arrival here and 145 when EMS arrived at nursing facility.. Certainly the pending studies including cultures, urine drug screen, telemetry, further check of electrolytes with magnesium could be useful. I suspect with the way the ventilator is being weaned that she could be extubated relatively soon, by tomorrow morning. Hopefully further history obtained from the patient will be useful. Secondary to her elevated BNP will check an echocardiogram Await serial troponins Check CTA if dimer is positive Status: Acute (2) Pneumonia: For now Zosyn as this will cover possible aspiration Sputum culture Pulmonary toilet with DuoNeb every 6 hours Status: Acute (3) Type 1 diabetes mellitus: No evidence of DKA on arrival We will go ahead and start on D5 normal saline, low-dose long-acting insulin, sliding scale insulin Status: Acute Qualifiers: Diabetes mellitus complication status: with hyperglycemia Qualified Code(s): E10.65 - Type 1 diabetes mellitus with hyperglycemia Plan Hyperkalemia. I suspect this will be improved on recheck. Will order a BMP now. Transaminitis. Check hepatitis panel. Recheck in the morning. Past history of failure to thrive Past history of perinephric abscess Full code Lovenox for DVT prophylaxis Pepcid for GI prophylaxis Attestations Medical Necessity Statement*: Will need greater than 2 midnight stay for evaluation and treatment of respiratory failure requiring mechanical ventilation. Critical Care Time: The high probability of a clinically significant, sudden or life threatening deterioration of the patient's [pulmonary, cardiac system(s) required my full and direct attention, intervention and personal management. The critical care time is as shown. This time is in addition to time spent performing any reported procedures but includes the following: [x] Data and vital sign review and interpretation [x] Patient assessment, examination and intervention [x] Documentation [x] Medication orders and management Critical Care Time (min): 44 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 of Care Code Acute Compound Specialist for [facility] Diagnoses Acute respiratory failure with hypoxemia J96.01 Pneumonia J18.9 Type 1 diabetes mellitus E10.65 Diabetes mellitus complication status: with hyperglycemia
[2021-08-16 20:46] LABS: D Dimer 2.36 ug/mIFEU (0-0.59)
[2021-08-16 20:49] LABS: Troponin 5 2HR 64.94 ng/L (0-10)
--- NOTE | 2021-08-16 20:49 | CTR_ITS ---
PROCEDURE INFORMATION: Exam: CTA Chest With Contrast Exam date and time: 08/16/2021 8:49 PM Age: 41 years old Clinical indication: Other: Resp failure, elevated d-dimer; Additional info: Resp failure, elevated dimer TECHNIQUE: Imaging protocol: Computed tomographic angiography of the chest with contrast. 3D rendering (Not supervised by radiologist): MIP and/or 3D reconstructed images were created by the technologist. Radiation optimization: All CT scans at this facility use at least one of these dose optimization techniques: automated exposure control; mA and/or kV adjustment per patient size (includes targeted exams where dose is matched to clinical indication); or iterative reconstruction. Contrast material: OMNI 350; Contrast volume: 61 ml; Contrast route: INTRAVENOUS (IV); COMPARISON: CT angio chest PE protcl [id number] 06/26/2021 8:46 PM RADIATION DOSE METRICS: Total DLP (mGy-cm): 376.18 FINDINGS: Tubes, catheters and devices: Endotracheal tube is in satisfactory position. There is a nasogastric tube extending into the stomach. Pulmonary arteries: There is no evidence of filling defects within the pulmonary arterial circulation to suggest pulmonary embolism. Aorta: There is no thoracic aortic aneurysm or dissection. Lungs: There is dependent atelectasis and posterior consolidation in both lungs which may represent a combination of atelectasis and pneumonia. There is diffuse bilateral bronchial wall thickening not changed from previous examination keeping with some chronic bronchitis. There is some diffuse ground-glass opacity in a gravitational distribution and there is mild thickening of the interlobular septa. These findings may represent some interstitial pulmonary edema. There is some tree-in-bud type centrilobular nodular opacity not as well seen as on the previous examination probably due to being obscured by the edema. Pleural spaces: There are small bilateral pleural effusions. Heart: Unremarkable. No cardiomegaly. No pericardial effusion. Lymph nodes: There are mildly prominent hilar lymph nodes not significantly changed. There are mildly para minute paratracheal lymph nodes increased from previous study. These may be reactive. Bones/joints: There is mild scoliosis of the thoracic spine not significantly changed. Soft tissues: Unremarkable. CT/CT angio chest PE protcl [id number] IMPRESSION: 1. No evidence of pulmonary embolism. 2. Bilateral pleural effusions. 3. Bronchitis and pneumonia. 4. Interstitial pulmonary edema.
[2021-08-16] MEDS: midazolam 1 mg/mL INJ 2 mL 2 MG IVP (21:04)
[2021-08-16 21:05] LABS: Acetaminophen < 5.0 ug/mL (10-30); Salicylate < 0.3 mg/dL (3-10); Troponin 5 2HR Delta 8.94 ABS# (0-10)
[2021-08-16 21:08] LABS: HCG, Serum Qual Negative (Negative)
[2021-08-16 21:28] LABS: Anion Gap 12.5 (5-19); Blood Urea Nitrogen 31 mg/dL (6-20); Calcium 7.9 mg/dL (8.5-10.5); Carbon Dioxide 25 mmol/L (22-29); Chloride 107 mmol/L (98-107); Glomerular Filtration Rate 61.4 mL/min (90-130); Glucose 104 mg/dL (65-115); Osmolality Calculated 295 mOsm/kg (285-295); Potassium 5.5 mmol/L (3.5-5.1); Sodium 139 mmol/L (136-145)
--- NOTE | 2021-08-16 21:34 | XRR_ITS ---
PROCEDURE INFORMATION: Exam: XR Chest Exam date and time: 08/16/2021 9:34 PM Age: 41 years old Clinical indication: Device placement; Other: RT ij; Additional info: Post cvc placement TECHNIQUE: Imaging protocol: XR of the chest. Views: 1 view. COMPARISON: CR (CHEST, ) 08/16/2021 5:16 PM FINDINGS: Tubes, catheters and devices: Interval right central line placement, which terminates within the proximal right atrium. Stable positioning of the endotracheal tube. Lungs: Ill-defined opacities within the lungs, no significant interval change. Pleural spaces: No pleural effusion. No pneumothorax. Heart/Mediastinum: No cardiomegaly. Bones/joints: Visualized osseous structures are intact. XR/XR chest 1V portable [id number] IMPRESSION: Interval right central line placement, which terminates within the proximal right atrium. Otherwise, no significant interval change.
[2021-08-16 22:00] LABS: Amphetamines Screen Urine Negative (Negative); Barbiturates Screen Urine Negative (Negative); Benzodiazepines Screen Urine Negative (Negative); Cocaine Screen Urine Negative (Negative); Opiate Screen Urine Negative (Negative); PCP Screen Urine Negative (Negative); THC Screen Urine Negative (Negative)
--- NOTE | 2021-08-16 22:46 | XRR_ITS ---
PROCEDURE INFORMATION: Exam: XR Chest Exam date and time: 08/16/2021 10:46 PM Age: 41 years old Clinical indication: Device placement; Ng tube; Additional info: Ng placement TECHNIQUE: Imaging protocol: XR of the chest. Views: 1 view. COMPARISON: CR (CHEST, ) 08/16/2021 9:39 PM FINDINGS: Tubes, catheters and devices: Endotracheal tube is in satisfactory position with its tip approximately 4 cm above the lavon. There is right jugular central venous catheter with its tip in the superior vena cava. There is an NG tube in place with its tip in the stomach. Lungs: Ill-defined opacities throughout both lungs not significantly changed. Pleural spaces: Unremarkable. No pleural effusion. No pneumothorax. Heart/Mediastinum: Unremarkable. No cardiomegaly. Bones/joints: Unremarkable. XR/XR chest 1V portable [id number] IMPRESSION: 1. NG tube tip is in the stomach. 2. No change in pulmonary disease.
[2021-08-16] MEDS: cefepime 1,000 MG in sodium chloride 0.9% (plus) 50 ML 100 MG IV (22:51)
[2021-08-16] MEDS: iohexol 350 mg/mL 100 mL Btl IV (23:13)
[2021-08-17] VITALS (93 sets, daily range): BP systolic 86–146; BP diastolic 49–95; PULSE 79–136; RESP 5–36; TEMP 36–37.1; O2SAT 84–100
--- NOTE | 2021-08-17 00:01 | ECG_ITS ---
[facility] Test Date: 2021-08-17 Pat Name: Mariana Ace Department: Room: [facility]04 Gender: Female Gauge And Instrument Inspector: : 1980 Requested By: Jose Francisco Pedraza Order Number: [id number] Katelin MD: Mustapha Stearns M.D. Measurements Intervals [place] Rate: 82 P: 71 MN: 166 QRS: 57 QRSD: 81 T: 91 QT: 409 QTc: 479 Interpretive Statements SINUS RHYTHM POSSIBLE LEFT ATRIAL ENLARGEMENT [-0.1mV P-WAVE IN V1/V2] POSSIBLE RIGHT VENTRICULAR CONDUCTION DELAY [RSR (QR) IN V1/V2] POSSIBLE ANTERIOR MYOCARDIAL INFARCTION , OF INDETERMINATE AGE [30 ms Q WAVE IN V3/V4, OR R < 0.2 mV IN V4] Compared to ECG 08/16/2021 23:35:50 No significant changes Electronically Signed On 08-17-2021 20:53:25 CELL ATTENDANT by Mustapha Stearns M.D. [id number]
[2021-08-17 00:30] LABS: Hepatitis A Antibody IgM Non-Reactive (Nonreactive); Hepatitis B Core IgM Non-Reactive (Nonreactive); Hepatitis B Surface Antigen Non-Reactive (Nonreactive); Hepatitis C Virus Antibody Non-Reactive (Nonreactive)
[2021-08-17 00:54] LABS: Glucose Point of Care 85 mg/dL (70-110)
[2021-08-17] MEDS: enoxaparin 30 mg/0.3 mL Syringe SUBCUT (00:59)
[2021-08-17] MEDS: famotidine 20 mg/2 mL INJ IVP ×2 (00:59→11:12)
[2021-08-17] MEDS: insulin glargine 100 units/1 mL 10 UNIT SUBCUT ×2 (01:00→21:15)
[2021-08-17] MEDS: gabapentin 100 mg Capsule PO ×4 (01:00→20:59)
[2021-08-17] MEDS: dextrose 5%-sod chloride 0.9% 1,000 ML 75 ML IV ×2 (01:01→14:15)
[2021-08-17 01:06] LABS: Troponin 5 6HR 66.27 ng/L (0-10)
[2021-08-17 01:08] LABS: Troponin 5 6HR Delta 10.27 ng/L (0-12)
[2021-08-17] MEDS: piperacillin-tazobactam 3.375 GM in sodium chloride 0.9% (plus) 50 ML IV ×3 (02:43→17:33)
[2021-08-17 03:58] LABS: ABG PCO2 40.4 mmHg (35-45); ABG PH Result 7.41 (7.35-7.45); Arterial Blood Gas Hematocrit 35.3 % (37-47); Blood Gas Sample Site Brachial, right; Blood Gas Sample Type Arterial; HCO3 ABG 25.7 mmol/L (22-26); Oxygen Device VENT; PO2 ABG 70.3 mmHg (80.0-100.0)
[2021-08-17 05:00] LABS: Basophils % 0.3 %; Eosinophils # 0.1 10^3/uL (0.0-0.8); Eosinophils % 1.3 %; Hematocrit 27.9 % (37.0-47.0); Lymphocytes # 2.4 10^3/uL (0.8-4.8); Lymphocytes % 31.9 %; Mean Corpuscular HGB Conc 31.5 g/dL (30.0-36.0); Mean Corpuscular Hemoglobin 29.2 pg (28.0-34.0); Mean Corpuscular Volume 92.7 fl (81-99); Mean Platelet Volume 9.1 fL (7.4-10.4); Monocytes # 0.5 10^3/uL (0.2-0.9); Monocytes % 6.9 %; Neutrophils # 4.44 10^3/uL (1.8-7.7); Neutrophils % 59.3 %; Nucleated Red Blood Cells % 0 %; Platelet Count 195 10^3/cmm (130-400); Red Blood Count 3.01 10^6/uL (4.1-5.3); Red Cell Distribution Width 16.1 % (12.1-15.1); White Blood Count 7.5 10^3/uL (4.0-10.0)
[2021-08-17 05:01] LABS: Hemoglobin 8.8 g/dL (11.5-15.3)
[2021-08-17 05:17] LABS: Alanine Aminotransferase 23 U/L (0-33); Albumin Level 2.2 g/dL (3.5-5.2); Alkaline Phosphatase 115 IU/L (35-105); Anion Gap 10.4 (5-19); Aspartate Amino Transferase 20 U/L (0-32); Blood Urea Nitrogen 29 mg/dL (6-20); Calcium 7.7 mg/dL (8.5-10.5); Carbon Dioxide 24 mmol/L (22-29); Chloride 110 mmol/L (98-107); Globulin 1.8 g/dL (1.3-4.6); Glucose 81 mg/dL (65-115); Osmolality Calculated 295 mOsm/kg (285-295); Potassium 4.4 mmol/L (3.5-5.1); Sodium 140 mmol/L (136-145); Total Bilirubin 0.2 mg/dL (0.15-1.2)
[2021-08-17] MEDS: PARoxetine 20 mg Tablet PO (06:07)
[2021-08-17 07:20] LABS: Glucose Point of Care 90 mg/dL (70-110)
[2021-08-17] MEDS: metoprolol tartrate 25 mg Tablet 12.5 MG PO ×2 (08:09→17:34)
--- NOTE | 2021-08-17 08:14 | USCV_ITS ---
Marinaa Ace Age: 41 Gender: F : 1980 Exam Date: 08/17/2021 09:41 Ordering Phys: Yosef Erickson MD Technologist: EAGLE [place] [facility] [place]: elevated ddimer HISTORY: elevated ddimer PROCEDURES: The venous duplex Doppler examination of both lower extremities was performed in the standard fashion. The following venous structures were evaluated: common femoral vein, profunda vein, proximal portion of the greater saphenous vein, superficial femoral vein, and the popliteal vein. In addition, the posterior tibial and peroneal trunk were evaluated. Serial compression, augmentation maneuvers, and spectral Doppler flow evaluation were performed. FINDINGS: Normal 2-D Doppler and augmentation and compressibility throughout the lower extremity venous structures. Additional imaging through the proximal calf veins also reveals no thrombus. Limited evaluation of the greater saphenous vein is patent with no thrombus.. CONCLUSIONS No evidence of right lower extremity DVT. No evidence of left lower extremity DVT. Lucien Thompson MD (Electronically Signed) Final Date: 18 August 2021 12:30 S
[2021-08-17] MEDS: ipratropium-albuterol 3 mL Neb INHALATION ×3 (08:56→20:24)
[2021-08-17 11:14] LABS: Glucose Point of Care 99 mg/dL (70-110)
--- NOTE | 2021-08-17 12:03 | PC.NURSE ---
weaning sedation to awaken pt and wean vent
--- NOTE | 2021-08-17 15:50 | PC.NURSE ---
all sedation weaned off now on cpap more awake at this time ... awaiting at this time
[2021-08-17 16:25] LABS: Glucose Point of Care 148 mg/dL (70-110)
--- NOTE | 2021-08-17 16:33 | PC.NURSE ---
extubated at this time placed on nasal canula.. og tube out
--- NOTE | 2021-08-17 18:24 | PM.PN ---
Subjective Subjective: Intubated, weaned off sedation, awake, denies pain or discomfort. Comfortable breathing. Once ETT out. Vitals/I&O/Wt Last Vital Signs Temp 98.7 F 08/17/21 07:30 Pulse 136 H 08/17/21 16:00 Resp 13 08/17/21 15:13 BP 122/63 08/17/21 16:00 Pulse Ox 95 08/17/21 16:00 08/17/21 08/17/21 08/17/21 06:59 14:59 22:59 Intake Total 161.267 / 3937.096 2228.234 / 1216.234 551.082 / 1767.316 Output Total 650 / 650 300 / 300 Balance -488.733 / 386.959 4491.234 / 1216.234 251.082 / 1467.316 Weight last 48 hrs Weight 54.476 kg Weight 53.977 kg Physical Exam Const: COMMON NORMALS: no acute distress GENERAL APPEARANCE: patient mechanically ventilated HENMT: COMMON NORMALS: oropharynx normal Neck/C-Spine: COMMON NORMALS: no JVD Resp: COMMON NORMALS: normal respiratory effort and clear to auscultation bilaterally AUSCULTATION: clear to auscultation bilaterally Cardio: COMMON NORMALS: no JVD, regular rhythm, S1 normal heart sound present, S2 normal heart sound present and No murmurs present (Cardio) RHYTHM: regular rhythm HEART SOUNDS: S1 normal heart sound present and S2 normal heart sound present GI: COMMON NORMALS: Normal to inspection, nondistended, normoactive bowel sounds present, Soft to palpation and non-tender PALPATION: Yes Soft to palpation Extremity: COMMON NORMALS: no joint enlargement and no pedal edema Neuro: COMMON NORMALS: moves all extremities Skin: COMMON NORMALS: no rashes or lesions noted GENERAL SKIN EXAM: no rashes or lesions noted Urinary Catheter Management: Fall: Cath Placed During This Visit: yes Reason for Continuing Indwelling Catheter: Accurate Measurement of Urinary Output in Critically Ill Patients Urinary Catheter Date of Insertion: 08/16/21 Urinary Catheter Time of Insertion: 18:45 Data : 08/17/21 04:50 08/17/21 04:50 Micro: Microbiology 08/16/21 00:38 MRSA Culture - Final Nose 08/16/21 17:40 Gram Stain - Final Sputum - Endotracheal Tube Aspirate 08/16/21 20:55 Blood Culture - Preliminary Blood SPECIMEN COLLECTED 08/16/21 20:50 Blood Culture - Preliminary Blood SPECIMEN COLLECTED A&P Assessment and plan (1) Acute respiratory failure with hypoxemia: Did well on weaning trial. Extubating. Echocardiogram with normal ejection fraction, diastolic function normal, mild MVR, mild TVR, trace pericardial effusion. Etiology uncertain at this point in time. This could represent an aspiration event, medication overdose, pulmonary embolism or even cardiac arrhythmia. Cannot even rule out a hypoglycemic event however blood sugar was 102 on arrival here and 145 when EMS arrived at nursing facility. Possible pneumonia. Pulmonary edema. DC IVF. COVID-19 PCR negative. Urine drug screen unremarkable. No PE. D-dimer abnormal. Requested lower extremity duplex. Status: Acute (2) Pneumonia: Continue Zosyn with possible aspiration Sputum culture Pulmonary toilet with DuoNeb every 6 hours Status: Acute (3) Type 1 diabetes mellitus: No evidence of DKA on arrival Continue low-dose long-acting insulin, sliding scale insulin Status: Acute Qualifiers: Diabetes mellitus complication status: with hyperglycemia Qualified Code(s): E10.65 - Type 1 diabetes mellitus with hyperglycemia Plan Hyperkalemia. Resolved Transaminitis. Resolved. Negative hepatitis panel. Past history of failure to thrive Past history of perinephric abscess Full code Lovenox for DVT prophylaxis Pepcid for GI prophylaxis Attestations Medical Necessity Statement*: Continue admission for assessment management of acute respiratory failure Critical Care Time: The high probability of a clinically significant, sudden or life threatening deterioration of the patient's respiratory system(s) required my full and direct attention, intervention and personal management. The critical care time is as shown. This time is in addition to time spent performing any reported procedures but includes the following: x Data and vital sign review and interpretation x Patient assessment, examination and intervention x Documentation x Medication orders and management Critical Care Time (min): 40 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 of Care Code Acute Inspector Weights And Measures for obdulio [facility] Diagnoses Acute respiratory failure with hypoxemia J96.01 Pneumonia J18.9 Type 1 diabetes mellitus E10.65 Diabetes mellitus complication status: with hyperglycemia
[2021-08-17] MEDS: sodium chloride 0.9% 500 ML 999 ML IV (20:22)
--- NOTE | 2021-08-17 20:38 | USCV_ITS ---
Mariana Ace Age: 41 Gender: F : 1980 Exam Date: 08/17/2021 00:49 Ordering Phys: Ab Oro MD Technologist: JAMAL [place] [facility] [place]: Elevated BNP BP: 146 / 95 HR: 82 Rhythm: Sinus Technical Quality: Adequate MEASUREMENTS (Male / Female) Normal Values 2D ECHO LV Diastolic Diameter PLAX 4.4 cm 4.2 - 5.9 / 3.9 - 5.3 cm LV Systolic Diameter PLAX 2.9 cm IVS Diastolic Thickness 0.9 cm 0.6 - 1.0 / 0.6 - 0.9 cm IVS Systolic Thickness 1.1 cm LVPW Diastolic Thickness 1.4 cm 0.6 - 1.0 / 0.6 - 0.9 cm LVPW Systolic Thickness 1.6 cm LVOT Diameter 1.8 cm LV Ejection Fraction 2D Teich 63.4 % LV Ejection Fraction MOD 2C 66.0 % LV Ejection Fraction 2C AL 66.2 % LA Diameter 3.0 cm LA Width 3.3 cm LA Height 4.7 cm RA Width 2.9 cm RA Height 4.5 cm Aorta at Sinotubular Diameter 2.6 cm M-MODE Aortic Annulus Diameter 2.1 cm LA Ao Ratio MM 1.4 MV E Point Septal Separation 0.9 cm DOPPLER AV Peak Velocity 94.0 cm/s LVOT Peak Velocity 65.0 cm/s AV Area Cont Eq vti 1.8 cm squared AV Area Cont Eq pk 1.7 cm squared MV Peak Velocity 86.0 cm/s MV Area PHT 3.9 cm squared Mitral E to A Ratio 1.1 MV E' Velocity 43.0 cm/s Mitral E to MV E' Ratio 13.9 Mitral E to LV E' Lateral Ratio 14.4 Mitral E to LV E' Septal Ratio 13.4 TR Peak Velocity 108.5 cm/s TR Peak Gradient 4.7 mmHg TR Mean Velocity 52.2 cm/s TR Mean Gradient 1.2 mmHg TR Velocity Time Integral 15.2 cm Right Atrial Pressure 10.0 mmHg Pulmonary Artery Systolic Pressu 14.7 mmHg PV Peak Velocity 64.0 cm/s RV Acceleration Time 0.1 s RV Ejection Time 0.3 s RV AcT/ET 0.4 FINDINGS Left Ventricle Normal left ventricular size. LV systolic function is normal with EF of 55-60%. No regional wall motion abnormalities. Normal diastolic filling pattern. Right Ventricle The right ventricle is normal in size and function. Right Atrium The right atrium is normal in size. Left Atrium The left atrium is normal in size. Mitral Valve Structurally normal mitral valve without significant stenosis or prolapse. There is mild mitral regurgitation. Aortic Valve Structurally normal aortic valve without significant sclerosis or stenosis. There is no aortic regurgitation. Tricuspid Valve Structurally normal tricuspid valve without significant stenosis. Mild tricuspid regurgitation. RVSP is normal Pulmonic Valve Structurally normal pulmonic valve without significant stenosis. There is no pulmonic regurgitation. Pericardium Trace pericardial effusion Aorta Normal ascending aorta dimension. CONCLUSIONS LV systolic function is normal with EF of 55-60% Diastolic function is normal Mild mitral regurgitation Mild tricuspid regurgitation Trace pericardial effusion No comparison studies are available Mustapha Stearns MD (Electronically Signed) Final Date: 17 August 2021 17:17 S
[2021-08-17 20:44] LABS: Glucose Point of Care 277 mg/dL (70-110)
[2021-08-17] MEDS: insulin lispro 100 unit/1 mL SUBCUT (21:00)
[2021-08-17] MEDS: acetaminophen 325 mg Tablet 650 MG PO (21:15)
[2021-08-17] MEDS: FUROsemide 10 mg/mL SDV 4mL 40 MG IVP (21:53)
[2021-08-18] VITALS (28 sets, daily range): BP systolic 93–144; BP diastolic 61–104; PULSE 100–124; RESP 13–19; TEMP 36.3–36.9; O2SAT 87–100; BMI 20.7
[2021-08-18] MEDS: enoxaparin 30 mg/0.3 mL Syringe SUBCUT ×2 (01:34→22:31)
[2021-08-18] MEDS: famotidine 20 mg/2 mL INJ IVP ×3 (01:35→22:30)
[2021-08-18] MEDS: piperacillin-tazobactam 3.375 GM in sodium chloride 0.9% (plus) 50 ML IV ×3 (01:36→18:35)
[2021-08-18] MEDS: albumin 12.5 GM/50 ML VIAL IV (01:36)
[2021-08-18 02:50] LABS: Basophils % 0.3 %; Eosinophils % 0.2 %; Hematocrit 31.8 % (37.0-47.0); Hemoglobin 9.7 g/dL (11.5-15.3); Lymphocytes % 19.6 %; Mean Corpuscular HGB Conc 30.5 g/dL (30.0-36.0); Mean Corpuscular Hemoglobin 29.8 pg (28.0-34.0); Mean Corpuscular Volume 97.5 fl (81-99); Mean Platelet Volume 9.9 fL (7.4-10.4); Monocytes # 0.9 10^3/uL (0.2-0.9); Monocytes % 8.5 %; Neutrophils # 7.21 10^3/uL (1.8-7.7); Nucleated Red Blood Cells % 0 %; Platelet Count 217 10^3/cmm (130-400); Red Blood Count 3.26 10^6/uL (4.1-5.3); Red Cell Distribution Width 15.9 % (12.1-15.1); White Blood Count 10.2 10^3/uL (4.0-10.0)
[2021-08-18] MEDS: ipratropium-albuterol 3 mL Neb INHALATION ×4 (03:02→21:24)
[2021-08-18 03:15] LABS: D Dimer 1.75 ug/mIFEU (0-0.59)
[2021-08-18 03:18] LABS: Alanine Aminotransferase 33 U/L (0-33); Albumin Level 2.6 g/dL (3.5-5.2); Alkaline Phosphatase 131 IU/L (35-105); Anion Gap 14.1 (5-19); Aspartate Amino Transferase 26 U/L (0-32); Blood Urea Nitrogen 32 mg/dL (6-20); Calcium 8.2 mg/dL (8.5-10.5); Carbon Dioxide 21 mmol/L (22-29); Chloride 105 mmol/L (98-107); Globulin 2.2 g/dL (1.3-4.6); Glomerular Filtration Rate 35.7 mL/min (90-130); Glucose 81 mg/dL (65-115); Osmolality Calculated 286 mOsm/kg (285-295); Potassium 5.1 mmol/L (3.5-5.1); Sodium 135 mmol/L (136-145); Total Bilirubin 0.2 mg/dL (0.15-1.2); Total Protein 4.8 g/dL (6.6-8.7)
[2021-08-18 07:41] LABS: Glucose Point of Care 45 mg/dL (70-110)
[2021-08-18 08:00] LABS: Glucose Point of Care 61 mg/dL (70-110)
--- NOTE | 2021-08-18 08:00 | PC.NURSE ---
Pt sitting up in chair, AAOX4. NC at 4l, no s/s of respiratory distress or SOB. Makes all needs known. Accucheck 45, 480ml OJ given. Blood sugar rechecked after 20 minutes, 61. Awaiting breakfast tray after diet restarted. Will monitor
[2021-08-18] MEDS: gabapentin 100 mg Capsule PO ×3 (08:15→21:26)
[2021-08-18] MEDS: metoprolol tartrate 25 mg Tablet 12.5 MG PO ×2 (08:15→18:35)
[2021-08-18 11:29] LABS: Glucose Point of Care 156 mg/dL (70-110)
[2021-08-18] MEDS: insulin lispro 100 unit/1 mL SUBCUT ×2 (11:43→18:31)
--- NOTE | 2021-08-18 16:41 | PC.NURSE ---
Attempted to obtain PIV access x3 without success. Pt has CVL.
--- NOTE | 2021-08-18 17:10 | PC.NURSE ---
Report given to Saundra REINA. Pt transferred to room 270 per this nurse. Tolerated well. Pt placed in bed, o2 connected to wall at 3LNC, and CL placed in reach.
[2021-08-18 17:26] LABS: Glucose Point of Care 143 mg/dL (70-110)
[2021-08-18] MEDS: ondansetron 2 mg/ML SDV 2 mL 4 MG IVP (18:35)
--- NOTE | 2021-08-18 20:09 | PM.PN ---
Subjective Subjective: Reports he is feeling better this morning. Transiently needed BiPAP support. Intermittent cough. Unable to bring up much phlegm. Denies chest pain or pressure. Vitals/I&O/Wt Last Vital Signs Temp 98.2 F 08/18/21 12:00 Pulse 106 H 08/18/21 16:01 Resp 14 08/18/21 16:01 BP 142/88 08/18/21 16:01 Pulse Ox 95 08/18/21 16:01 08/18/21 08/18/21 08/18/21 06:59 14:59 22:59 Intake Total 150 / 2597.316 3090 / 3090 480 / 3570 Output Total 250 / 750 650 / 650 Balance -100 / 9381.169 7506 / 3090 -170 / 2920 Weight last 48 hrs Weight 54.885 kg Weight 54.476 kg Weight 53.977 kg Physical Exam Const: COMMON NORMALS: no acute distress GENERAL APPEARANCE: patient mechanically ventilated HENMT: COMMON NORMALS: oropharynx normal Neck/C-Spine: COMMON NORMALS: no JVD Resp: COMMON NORMALS: normal respiratory effort and clear to auscultation bilaterally AUSCULTATION: clear to auscultation bilaterally Cardio: COMMON NORMALS: no JVD, regular rhythm, S1 normal heart sound present, S2 normal heart sound present and No murmurs present (Cardio) RHYTHM: regular rhythm HEART SOUNDS: S1 normal heart sound present and S2 normal heart sound present GI: COMMON NORMALS: Normal to inspection, nondistended, normoactive bowel sounds present, Soft to palpation and non-tender PALPATION: Yes Soft to palpation Extremity: COMMON NORMALS: no joint enlargement and no pedal edema Neuro: COMMON NORMALS: moves all extremities Skin: COMMON NORMALS: no rashes or lesions noted GENERAL SKIN EXAM: no rashes or lesions noted Urinary Catheter Management: Fall: Cath Placed During This Visit: yes Reason for Continuing Indwelling Catheter: Accurate Measurement of Urinary Output in Critically Ill Patients Urinary Catheter Date of Insertion: 08/16/21 Urinary Catheter Time of Insertion: 18:45 Data : 08/18/21 02:07 08/18/21 02:07 Micro: Microbiology 08/16/21 17:40 Gram Stain - Final Sputum - Endotracheal Tube Aspirate Sputum Culture - Preliminary 08/16/21 20:55 Blood Culture - Preliminary Blood NEGATIVE TO DATE 08/16/21 20:50 Blood Culture - Preliminary Blood NEGATIVE TO DATE 08/16/21 00:38 MRSA Culture - Final Nose A&P Assessment and plan (1) Acute respiratory failure with hypoxemia: Needed transient BiPAP support this morning. He improved. Wean down. Cough, not bringing up much phlegm. Add flutter valve, Mucinex. Continue oxygen support. Wean down as tolerating. Continue antibiotics for pneumonia. MRSA PCR positive. Avoid fluid overload. Echocardiogram with normal ejection fraction, diastolic function normal, mild MVR, mild TVR, trace pericardial effusion. Etiology uncertain at this point in time. This could represent an aspiration event, medication overdose, pulmonary embolism or even cardiac arrhythmia. Cannot even rule out a hypoglycemic event however blood sugar was 102 on arrival here and 145 when EMS arrived at nursing facility. Possible pneumonia. Pulmonary edema. DC IVF. COVID-19 PCR negative. Urine drug screen unremarkable. No PE. D-dimer abnormal. No DVT on venous duplex. Continue prophylactic dose Lovenox. Monitor renal function with MARCELA. Status: Acute (2) MARCELA (acute kidney injury): Possible YOUSIF. Possibly with episodes of low blood pressure. Blood pressures improved. Anticipate improvement in renal function. Avoid nephrotoxins. Status: Acute (3) Pneumonia: Continue Zosyn with possible aspiration Sputum culture requested. MRSA PCR positive. Pulmonary toilet with DuoNeb every 6 hours Status: Acute (4) Type 1 diabetes mellitus: No evidence of DKA on arrival Continue low-dose long-acting insulin, sliding scale insulin Status: Acute Qualifiers: Diabetes mellitus complication status: with hyperglycemia Qualified Code(s): E10.65 - Type 1 diabetes mellitus with hyperglycemia Plan Hyperkalemia. Creeping up again. Change diet to low potassium. Transaminitis. Resolved. Negative hepatitis panel. Past history of failure to thrive Past history of perinephric abscess Full code Lovenox for DVT prophylaxis Pepcid for GI prophylaxis Attestations Medical Necessity Statement*: Continue admission for assessment management of pneumonia, MARCELA. 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 of Care Code Acute Grazing Aide for [facility] Diagnoses Acute respiratory failure with hypoxemia J96.01 Pneumonia J18.9 Type 1 diabetes mellitus E10.65 Diabetes mellitus complication status: with hyperglycemia MARCELA (acute kidney injury) N17.9
[2021-08-18 20:48] LABS: Glucose Point of Care 197 mg/dL (70-110)
[2021-08-18] MEDS: insulin glargine 100 units/1 mL 10 UNIT SUBCUT (21:25)
[2021-08-18] MEDS: mirtazapine 15 mg Tablet 7.5 MG PO (21:26)
[2021-08-19] VITALS (17 sets, daily range): BP systolic 100–161; BP diastolic 61–91; PULSE 98–129; RESP 15–20; TEMP 36.3–37.4; O2SAT 90–100
[2021-08-19] MEDS: piperacillin-tazobactam 3.375 GM in sodium chloride 0.9% (plus) 50 ML IV ×3 (01:55→17:33)
[2021-08-19] MEDS: ipratropium-albuterol 3 mL Neb INHALATION ×4 (02:41→20:28)
[2021-08-19 05:16] LABS: Glucose Point of Care 225 mg/dL (70-110)
[2021-08-19 06:22] LABS: Glucose Point of Care 236 mg/dL (70-110)
[2021-08-19 06:42] LABS: Basophils % 0.3 %; Eosinophils % 0.1 %; Hematocrit 33.7 % (37.0-47.0); Hemoglobin 10.2 g/dL (11.5-15.3); Lymphocytes # 0.9 10^3/uL (0.8-4.8); Lymphocytes % 8.9 %; Mean Corpuscular HGB Conc 30.3 g/dL (30.0-36.0); Mean Corpuscular Hemoglobin 28.9 pg (28.0-34.0); Mean Corpuscular Volume 95.5 fl (81-99); Mean Platelet Volume 9.3 fL (7.4-10.4); Monocytes # 0.4 10^3/uL (0.2-0.9); Monocytes % 4.2 %; Neutrophils # 8.94 10^3/uL (1.8-7.7); Neutrophils % 85.6 %; Nucleated Red Blood Cells % 0 %; Platelet Count 217 10^3/cmm (130-400); Red Blood Count 3.53 10^6/uL (4.1-5.3); Red Cell Distribution Width 15.2 % (12.1-15.1); White Blood Count 10.4 10^3/uL (4.0-10.0)
[2021-08-19 07:11] LABS: Alanine Aminotransferase 42 U/L (0-33); Albumin Level 2.9 g/dL (3.5-5.2); Alkaline Phosphatase 193 IU/L (35-105); Aspartate Amino Transferase 28 U/L (0-32); Blood Urea Nitrogen 45 mg/dL (6-20); Calcium 8.3 mg/dL (8.5-10.5); Carbon Dioxide 21 mmol/L (22-29); Chloride 105 mmol/L (98-107); Globulin 2.8 g/dL (1.3-4.6); Glomerular Filtration Rate 29.3 mL/min (90-130); Glucose 228 mg/dL (65-115); Osmolality Calculated 305 mOsm/kg (285-295); Sodium 138 mmol/L (136-145); Total Bilirubin 0.2 mg/dL (0.15-1.2); Total Protein 5.7 g/dL (6.6-8.7)
[2021-08-19 07:49] LABS: Anion Gap 18.3 (5-19); Potassium 6.3 mmol/L (3.5-5.1)
[2021-08-19] MEDS: guaiFENesin 600 mg Tablet 1200 MG PO ×2 (08:49→17:34)
[2021-08-19] MEDS: PARoxetine 20 mg Tablet PO (08:49)
[2021-08-19] MEDS: gabapentin 100 mg Capsule PO ×3 (08:49→20:32)
[2021-08-19] MEDS: metoprolol tartrate 25 mg Tablet 12.5 MG PO (08:49)
[2021-08-19] MEDS: insulin lispro 100 unit/1 mL SUBCUT ×2 (08:52→12:34)
[2021-08-19 12:09] LABS: Glucose Point of Care 152 mg/dL (70-110)
[2021-08-19] MEDS: famotidine 20 mg/2 mL INJ IVP ×2 (12:34→23:58)
[2021-08-19 16:35] LABS: Potassium 5.2 mmol/L (3.5-5.1)
[2021-08-19 17:11] LABS: Glucose Point of Care 96 mg/dL (70-110)
--- NOTE | 2021-08-19 17:24 | P.PN_ITS ---
Subjective Subjective: Feels tired this morning. Dozing off while trying to eat breakfast. Week, spilled milk on herself. Denies pain or discomfort. States breathing is okay. Coughing. Appears to be coughing during breakfast while eating scrambled eggs and drinking milk. Cough weak, not successful in bringing up secretions. Encouraged her to use flutter valve, states she is using it. Asked placement secretary to arrange for help with feeding. Vitals/I&O/Wt Last Vital Signs Temp 98.4 F 08/19/21 16:02 Pulse 106 H 08/19/21 16:02 Resp 15 08/19/21 16:02 BP 106/74 08/19/21 16:02 Pulse Ox 98 08/19/21 16:02 08/19/21 08/19/21 08/19/21 06:59 14:59 22:59 Intake Total 150 / 4010 350 / 350 Output Total 600 / 1250 Balance -450 / 2760 350 / 350 Weight last 48 hrs Weight 57.153 kg Weight 54.885 kg Physical Exam Const: COMMON NORMALS: no acute distress GENERAL APPEARANCE: patient mechanically ventilated HENMT: COMMON NORMALS: oropharynx normal Neck/C-Spine: COMMON NORMALS: no JVD Resp: COMMON NORMALS: normal respiratory effort AUSCULTATION: rhonchi and diminished lung sounds Cardio: COMMON NORMALS: no JVD, regular rhythm, S1 normal heart sound present, S2 normal heart sound present and No murmurs present (Cardio) RHYTHM: regular rhythm HEART SOUNDS: S1 normal heart sound present and S2 normal heart sound present GI: COMMON NORMALS: Normal to inspection, nondistended, normoactive bowel sounds present, Soft to palpation and non-tender PALPATION: Yes Soft to palpation Extremity: COMMON NORMALS: no joint enlargement and no pedal edema Neuro: COMMON NORMALS: moves all extremities Skin: COMMON NORMALS: no rashes or lesions noted GENERAL SKIN EXAM: no rashes or lesions noted Urinary Catheter Management: Fall: Cath Placed During This Visit: yes Reason for Continuing Indwelling Catheter: Acute Urinary Retention or Obstruction Urinary Catheter Date of Insertion: 08/16/21 Urinary Catheter Time of Insertion: 18:45 Data : 08/19/21 06:34 08/19/21 16:05 Micro: Microbiology 08/16/21 17:40 Gram Stain - Final Sputum - Endotracheal Tube Aspirate Sputum Culture - Final A&P Assessment and plan (1) Acute respiratory failure with hypoxemia: Overall doing better, but weak, continues to require nasal cannula oxygen. Weakcough, appears may have difficult time clearing secretions. Flutter valve and Mucinex added. Concern for possible aspiration. Appreciate speech therapy assessment. Requested MBS, although likely cannot be done until Saturday. Not sure how well she participates with flutter valve. She seems to rely quite a bit on assistance. Will request chest PT as well. Continue oxygen support. Wean down as tolerating. Continue antibiotics for pneumonia. MRSA PCR positive. Add doxycycline. Avoid fluid overload. Echocardiogram with normal ejection fraction, diastolic function normal, mild MVR, mild TVR, trace pericardial effusion. This could represent an aspiration event, medication overdose, pulmonary emboli sm or even cardiac arrhythmia. Cannot even rule out a hypoglycemic event however blood sugar was 102 on arrival here and 145 when EMS arrived at nursing facility. Possible pneumonia. Pulmonary edema. DC IVF. COVID-19 PCR negative. Urine drug screen unremarkable. No PE. D-dimer abnormal. No DVT on venous duplex. Continue prophylactic dose Lovenox. Monitor renal function with MARCELA. Status: Acute (2) MARCELA (acute kidney injury): Worsened renal function, creatinine up to 1.9. Did not appear to respond well to fluid challenge. Possible YOUSIF. Possibly with episodes of low blood pressure. Soft blood pressures resolved. Now possible ATN. Status: Acute (3) Pneumonia: Continue Zosyn with possible aspiration Sputum culture requested. MRSA PCR positive. Add doxycycline. Concern for adding vancomycin currently with no stable renal function. If condition worsen ing consider linezolid, although avoid for now given he is on paroxetine. Pulmonary toilet with DuoNeb every 6 hours. Chest PT. Mucinex. Status: Acute (4) Type 1 diabetes mellitus: No evidence of DKA on arrival She is eating. Increase Lantus dose to 16 units which is her usual. Continue sliding scale. Consistent carbohydrate diet. Status: Acute Qualifiers: Diabetes mellitus complication status: with hyperglycemia Qualified Code(s): E10.65 - Type 1 diabetes mellitus with hyperglycemia Plan Hyperkalemia. Low potassium diet. Recheck potassium 5.2. Follow-up. Transaminitis. Resolved. Negative hepatitis panel. Past history of failure to thrive Past history of perinephric abscess Full code Lovenox for DVT prophylaxis Pepcid for GI prophylaxis Attestations Medical Necessity Statement*: Continue admission for assessment of management of pneumonia, hypoxia, MARCELA 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 of Care Code Acute Control System Computer Scientist for [facility] Fwd Diagnoses Acute respiratory failure with hypoxemia J96.01 MARCELA (acute kidney injury) N17.9 Pneumonia J18.9 Type 1 diabetes mellitus E10.65 Diabetes mellitus complication status: with hyperglycemia
[2021-08-19] MEDS: doxycycline 100 mg Tablet PO (17:51)
[2021-08-19 20:30] LABS: Glucose Point of Care 127 mg/dL (70-110)
[2021-08-19] MEDS: mirtazapine 15 mg Tablet 7.5 MG PO (20:32)
[2021-08-19] MEDS: enoxaparin 30 mg/0.3 mL Syringe SUBCUT (23:23)
[2021-08-20] VITALS (21 sets, daily range): BP systolic 139–174; BP diastolic 83–103; PULSE 101–140; RESP 2–24; TEMP 36.3–37.1; O2SAT 90–99
[2021-08-20] MEDS: piperacillin-tazobactam 3.375 GM in sodium chloride 0.9% (plus) 50 ML IV ×3 (01:44→17:55)
[2021-08-20] MEDS: ipratropium-albuterol 3 mL Neb INHALATION ×5 (02:40→22:30)
[2021-08-20 05:07] LABS: Basophils % 0.5 %; Eosinophils # 0.1 10^3/uL (0.0-0.8); Eosinophils % 1.7 %; Hematocrit 30.2 % (37.0-47.0); Hemoglobin 9.2 g/dL (11.5-15.3); Lymphocytes # 1.5 10^3/uL (0.8-4.8); Lymphocytes % 22.6 %; Mean Corpuscular HGB Conc 30.5 g/dL (30.0-36.0); Mean Corpuscular Hemoglobin 28.9 pg (28.0-34.0); Mean Platelet Volume 9.8 fL (7.4-10.4); Monocytes # 0.6 10^3/uL (0.2-0.9); Monocytes % 8.9 %; Neutrophils # 4.28 10^3/uL (1.8-7.7); Neutrophils % 65.7 %; Nucleated Red Blood Cells % 0 %; Platelet Count 189 10^3/cmm (130-400); Red Blood Count 3.18 10^6/uL (4.1-5.3); Red Cell Distribution Width 15.1 % (12.1-15.1); White Blood Count 6.5 10^3/uL (4.0-10.0)
[2021-08-20 05:33] LABS: Alanine Aminotransferase 30 U/L (0-33); Albumin Level 2.7 g/dL (3.5-5.2); Alkaline Phosphatase 154 IU/L (35-105); Anion Gap 13.7 (5-19); Aspartate Amino Transferase 20 U/L (0-32); Blood Urea Nitrogen 49 mg/dL (6-20); Calcium 8.6 mg/dL (8.5-10.5); Carbon Dioxide 24 mmol/L (22-29); Chloride 109 mmol/L (98-107); Globulin 2.5 g/dL (1.3-4.6); Glomerular Filtration Rate 26.1 mL/min (90-130); Glucose 66 mg/dL (65-115); Osmolality Calculated 305 mOsm/kg (285-295); Potassium 4.7 mmol/L (3.5-5.1); Sodium 142 mmol/L (136-145); Total Bilirubin 0.2 mg/dL (0.15-1.2); Total Protein 5.2 g/dL (6.6-8.7)
[2021-08-20] MEDS: PARoxetine 20 mg Tablet PO (06:02)
--- NOTE | 2021-08-20 06:25 | XRR_ITS ---
PROCEDURE INFORMATION: Exam: XR Chest Exam date and time: 08/20/2021 6:25 AM Age: 41 years old Clinical indication: Dyspnea; Additional info: Dyspnea, low o2 sat TECHNIQUE: Imaging protocol: XR of the chest. Views: 1 view. COMPARISON: CR (CHEST, ) 08/16/2021 10:51 PM FINDINGS: Tubes, catheters and devices: Right IJ central line appears unchanged with tip near the cavoatrial junction. Lungs: The lungs are symmetrically expanded. There is again pulmonary vascular congestion with evidence of mild interstitial edema. Increasing patchy left basilar consolidation. Pleural spaces: No visible pleural effusion or pneumothorax. Heart/Mediastinum: Unremarkable. No cardiomegaly. Bones/joints: Unremarkable. XR/XR chest 1V portable [id number] IMPRESSION: Findings consistent with pulmonary edema with increasing left basilar patchy consolidation, superimposed pneumonia not excluded.
[2021-08-20 06:48] LABS: Blood Gas Sample Type Arterial
[2021-08-20 06:49] LABS: Glucose Point of Care 92 mg/dL (70-110)
[2021-08-20 07:03] LABS: Arterial Blood Gas Hematocrit 32.3 % (37-47); Base Excess ABG -6.2 mmol/L (-2.0-2.0); Blood Gas Allen Test Pos; Blood Gas Operator Identificat AMH; Blood Gas Sample Site Radial, left; HCO3 ABG 22.6 mmol/L (22-26); Oxygen Device BIPAP; PO2 ABG 83.7 mmHg (80.0-100.0)
[2021-08-20] MEDS: metoprolol tartrate 25 mg Tablet 12.5 MG PO ×2 (08:14→17:55)
[2021-08-20] MEDS: doxycycline 100 mg Tablet PO ×2 (08:14→17:55)
[2021-08-20] MEDS: gabapentin 100 mg Capsule PO ×2 (08:14→20:48)
[2021-08-20] MEDS: guaiFENesin 600 mg Tablet 1200 MG PO ×2 (08:14→17:56)
[2021-08-20 09:43] LABS: ABG PCO2 61.2 mmHg (35-45); ABG PH Result 7.18 (7.35-7.45)
[2021-08-20] MEDS: famotidine 20 mg/2 mL INJ IVP (11:29)
--- NOTE | 2021-08-20 11:31 | P.PN_ITS ---
Subjective Subjective: Oxygenation worsened overnight. This morning oxygen saturation down to 78%. Was started on BiPAP support. Reports he is feeling better. Reports intermittent cough. Vitals/I&O/Wt Last Vital Signs Temp 98.8 F 08/20/21 11:07 Pulse 127 H 08/20/21 11:23 Resp 24 H 08/20/21 11:08 BP 170/103 08/20/21 11:07 Pulse Ox 97 08/20/21 11:11 08/19/21 08/20/21 08/20/21 22:59 06:59 14:59 Intake Total 260 / 610 50 / 660 360 / 360 Output Total 650 / 650 800 / 1450 300 / 300 Balance -390 / -40 -750 / -790 60 / 60 Weight last 48 hrs Weight 55.293 kg Weight 57.153 kg Physical Exam Const: COMMON NORMALS: no acute distress GENERAL APPEARANCE: patient mechanically ventilated HENMT: COMMON NORMALS: oropharynx normal Neck/C-Spine: COMMON NORMALS: no JVD Resp: COMMON NORMALS: normal respiratory effort AUSCULTATION: wheezes and diminished lung sounds Cardio: COMMON NORMALS: no JVD, regular rhythm, S1 normal heart sound present, S2 normal heart sound present and No murmurs present (Cardio) RHYTHM: regular rhythm HEART SOUNDS: S1 normal heart sound present and S2 normal heart sound present GI: COMMON NORMALS: Normal to inspection, nondistended, normoactive bowel sounds present, Soft to palpation and non-tender PALPATION: Yes Soft to palpation Extremity: COMMON NORMALS: no joint enlargement and no pedal edema Neuro: COMMON NORMALS: moves all extremities Skin: COMMON NORMALS: no rashes or lesions noted GENERAL SKIN EXAM: no rashes or lesions noted Urinary Catheter Management: Fall: Cath Placed During This Visit: yes Reason for Continuing Indwelling Catheter: Acute Urinary Retention or Obstruction Urinary Catheter Date of Insertion: 08/16/21 Urinary Catheter Time of Insertion: 18:45 Data : 08/20/21 04:15 08/20/21 04:15 Micro: Microbiology 08/16/21 17:40 Gram Stain - Final Sputum - Endotracheal Tube Aspirate Sputum Culture - Final A&P Assessment and plan (1) Acute respiratory failure with hypoxemia: Worsened hypoxia this morning. On BiPAP. Decreased air movement, wheezing, appears to have significant bronchospastic component. Increase breathing treatment frequency. Discussed with her and her father also about adding steroid IV for now. We will downgrade her diet for now to clear liquids, nectar thickened. In case oxygenation improves discussed with him assessment by MBS tomorrow. Discussed risk that if worsening or not improving is at risk of requiring reintubation and additional mechanical ventilatory support. Once able to need to encourage frequent incentive spirometry. Flutter valve and chest PT. Cough. Would benefit from pulmonary rehabilitation. Continue antibiotics for pneumonia. MRSA PCR positive. Add doxycycline. Hold paroxetine, mirtazapine for now, in anticipation of escalating to linezolid. Avoid fluid overload. Echocardiogram with normal ejection fraction, diastolic function normal, mild MVR, mild TVR, trace pericardial effusion. Pneumonia. Possible aspiration pneumonia. Pulmonary edema. Bronchospasm. COVID-19 PCR negative. Urine drug screen unremarkable. No PE. D-dimer abnormal. No DVT on venous duplex. Change to prophylactic heparin with worsening MARCELA. Status: Acute (2) MARCELA (acute kidney injury): Again slight worsening creatinine 2.1. Change from Lovenox to heparin. Did not appear to respond well to fluid challenge. Possible YOUSIF. Possibly with prior episodes of low blood pressure. Soft blood pressures resolved. Now with possible ATN. Status: Acute (3) Pneumonia: Continue Zosyn with possible aspiration NPO. If oxygenation improves, MBS tomorrow. Sputum culture requested. MRSA PCR positive. Add doxycycline. Concern for adding vancomycin currently with no stable renal function. Hold paroxetine, m irtazapine and anticipation of need for initiation of linezolid. Pulmonary toilet with DuoNeb Chest PT. Mucinex. Status: Acute (4) Type 1 diabetes mellitus: No evidence of DKA on arrival She is eating. Increase Lantus dose to 16 units which is her usual. Continue sliding scale. Consistent carbohydrate diet. Status: Acute Qualifiers: Diabetes mellitus complication status: with hyperglycemia Qualified Code(s): E10.65 - Type 1 diabetes mellitus with hyperglycemia Plan Hyperkalemia improved. Low potassium diet. Transaminitis. Resolved. Negative hepatitis panel. Past history of failure to thrive Past history of perinephric abscess Attestations Medical Necessity Statement*: Continue admission for cyst management of hypoxic respiratory failure. 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 of Care Code Acute Vp Of Digital Marketing for [facility] Diagnoses Acute respiratory failure with hypoxemia J96.01 MARCELA (acute kidney injury) N17.9 Pneumonia J18.9 Type 1 diabetes mellitus E10.65 Diabetes mellitus complication status: with hyperglycemia
[2021-08-20 11:49] LABS: Glucose Point of Care 138 mg/dL (70-110)
[2021-08-20 12:50] LABS: ABG PCO2 47.8 mmHg (35-45); ABG PH Result 7.26 (7.35-7.45); Alveolar-Arterial Oxygen Gradi 18.3 mmHg (5-10); Arterial Blood Gas Hematocrit 28.6 % (37-47); Base Excess ABG -5.6 mmol/L (-2.0-2.0); Blood Gas Allen Test Pos; Blood Gas Operator Identificat AMH; Blood Gas Sample Site Radial, right; Blood Gas Sample Type Arterial; Carboxyhemoglobin 1.2 %THgb (0.4-20.1); HCO3 ABG 21.3 mmol/L (22-26); HGB O2 Sat 95.1 % (95-100); Ionized Calcium Level - ABG 1.2 mmol/L (1.1-1.4); Methemoglobin 0.9 % (0.4-1.5); Oxygen Device BIPAP; Oxygen Saturation ABG 97.2; PO2 ABG 85.6 mmHg (80.0-100.0); Potassium Level - ABG 4.9 mmol/L (3.5-5.0); Total Hemoglobin 9.3 g/dL (12-16)
--- NOTE | 2021-08-20 15:22 | USR_ITS ---
PROCEDURE INFORMATION: Exam: US Retroperitoneal; Complete; Kidneys and Bladder Exam date and time: 08/20/2021 3:22 PM Age: 41 years old Clinical indication: Other: Gustavo on bloodwork TECHNIQUE: Imaging protocol: Real-time ultrasound of the retroperitoneum with image documentation. Complete exam focused on the kidneys and bladder. COMPARISON: CT abdomen pelvis w con* [id number] 06/26/2021 3:56 PM FINDINGS: Right kidney: 9.7 cm in length. No stones. No hydronephrosis. Left kidney: 10.3 cm in length. No stones. No hydronephrosis. Urinary bladder: Fall catheter in place. US/US renal BI* [id number] IMPRESSION: No acute sonographic findings.
[2021-08-20 16:27] LABS: Glucose Point of Care 210 mg/dL (70-110)
[2021-08-20 16:55] LABS: Urine Creatinine 42 mg/dL (28-217); Urine Random Sodium 57 mmol/L
--- NOTE | 2021-08-20 19:18 | PC.NURSE ---
Report to Vianey REINA at this time.
[2021-08-20 20:42] LABS: Glucose Point of Care 348 mg/dL (70-110)
[2021-08-20] MEDS: insulin lispro 100 unit/1 mL SUBCUT (20:45)
[2021-08-20] MEDS: insulin glargine 100 units/1 mL 13 UNIT SUBCUT (20:46)
[2021-08-20] MEDS: famotidine 20 mg Tablet PO (20:48)
[2021-08-20] MEDS: heparin 5,000 unit/mL INJ 1 mL 5000 UNIT SUBCUT (20:48)
[2021-08-21] VITALS (19 sets, daily range): BP systolic 127–158; BP diastolic 80–94; PULSE 88–112; RESP 15–24; TEMP 36.4–36.9; O2SAT 2–98
[2021-08-21] MEDS: piperacillin-tazobactam 3.375 GM in sodium chloride 0.9% (plus) 50 ML IV ×3 (01:38→17:22)
[2021-08-21] MEDS: ipratropium-albuterol 3 mL Neb INHALATION ×4 (03:55→23:03)
[2021-08-21 05:03] LABS: Basophils % 0.1 %; Hematocrit 28.4 % (37.0-47.0); Hemoglobin 9.2 g/dL (11.5-15.3); Lymphocytes % 14.7 %; Mean Corpuscular HGB Conc 32.4 g/dL (30.0-36.0); Mean Corpuscular Hemoglobin 29.9 pg (28.0-34.0); Mean Corpuscular Volume 92.2 fl (81-99); Mean Platelet Volume 9.8 fL (7.4-10.4); Monocytes # 0.5 10^3/uL (0.2-0.9); Monocytes % 7.3 %; Neutrophils # 5.49 10^3/uL (1.8-7.7); Neutrophils % 77.5 %; Nucleated Red Blood Cells % 0 %; Platelet Count 221 10^3/cmm (130-400); Red Blood Count 3.08 10^6/uL (4.1-5.3); Red Cell Distribution Width 14.7 % (12.1-15.1); White Blood Count 7.1 10^3/uL (4.0-10.0)
[2021-08-21 05:21] LABS: Alanine Aminotransferase 24 U/L (0-33); Albumin Level 2.7 g/dL (3.5-5.2); Alkaline Phosphatase 152 IU/L (35-105); Anion Gap 14.8 (5-19); Aspartate Amino Transferase 12 U/L (0-32); Blood Urea Nitrogen 44 mg/dL (6-20); Calcium 8.6 mg/dL (8.5-10.5); Carbon Dioxide 21 mmol/L (22-29); Chloride 109 mmol/L (98-107); Globulin 2.3 g/dL (1.3-4.6); Glomerular Filtration Rate 35.7 mL/min (90-130); Glucose 163 mg/dL (65-115); Osmolality Calculated 305 mOsm/kg (285-295); Potassium 4.8 mmol/L (3.5-5.1); Sodium 140 mmol/L (136-145); Total Bilirubin 0.2 mg/dL (0.15-1.2)
--- NOTE | 2021-08-21 05:23 | PC.NURSE ---
.Frequent safety and comfort rounds continue. Orders and/or nursing care completed as indicated. Patient monitored for response to intervention and treatment. Education provided includes steroid therapy uses and side effects. Patient and/or containers sales representative verbalizes understanding. Will continue to monitor.
[2021-08-21 06:44] LABS: Glucose Point of Care 174 mg/dL (70-110)
[2021-08-21] MEDS: bumetanide 0.25 mg/mL SDV 10 mL 1 MG IVP (07:39)
[2021-08-21] MEDS: insulin lispro 100 unit/1 mL SUBCUT ×4 (07:40→20:51)
[2021-08-21] MEDS: guaiFENesin 600 mg Tablet 1200 MG PO ×2 (08:41→17:21)
[2021-08-21] MEDS: gabapentin 100 mg Capsule PO ×3 (08:41→20:50)
[2021-08-21] MEDS: doxycycline 100 mg Tablet PO ×2 (08:41→17:22)
[2021-08-21] MEDS: metoprolol tartrate 25 mg Tablet 12.5 MG PO ×2 (08:41→17:21)
[2021-08-21] MEDS: famotidine 20 mg Tablet PO ×2 (08:41→20:50)
[2021-08-21] MEDS: heparin 5,000 unit/mL INJ 1 mL 5000 UNIT SUBCUT (08:42)
--- NOTE | 2021-08-21 08:54 | PC.NURSE ---
patient put back on bipap
--- NOTE | 2021-08-21 09:14 | PM.PN ---
Subjective Subjective: Patient was taken off BiPAP this morning to 4 L nasal cannula She was saturating 85% I did not notice conversational dyspnea or increased work of breathing She was happy to see that her breakfast tray was in the room She is awaiting modified barium swallow today Vitals/I&O/Wt Last Vital Signs Temp 97.7 F 08/21/21 04:00 Pulse 99 08/21/21 08:20 Resp 16 08/21/21 08:20 BP 151/84 08/21/21 07:27 Pulse Ox 95 08/21/21 08:20 08/20/21 08/21/21 08/21/21 22:59 06:59 14:59 Intake Total 730 / 1200 180 / 1380 170 / 170 Output Total 1700 / 2000 1950 / 3950 Balance -970 / -800 -1770 / -2570 170 / 170 Weight last 48 hrs Weight 54.658 kg Weight 55.293 kg Physical Exam Narrative: Very tired fatigue middle-age female Muscle mass loss Decreased tone of muscles No conversational dyspnea or tachypnea at time of evaluation in the morning Patient is coherent Awake and alert No audible stridor however wheezing noted on lung auscultation Currently on 4 L nasal cannula Abdomen soft Mild fluid overload signs Urinary Catheter Management: Fall: Cath Placed During This Visit: yes Reason for Continuing Indwelling Catheter: Acute Urinary Retention or Obstruction Urinary Catheter Date of Insertion: 08/16/21 Urinary Catheter Time of Insertion: 18:45 Data : 08/21/21 04:20 08/21/21 04:20 A&P Assessment and plan (1) MARCELA (acute kidney injury): Status: Acute (2) Acute respiratory failure with hypoxia and hypercapnia: Status: Acute (3) Acute respiratory failure with hypoxemia: Status: Acute (4) Pneumonia: Status: Acute (5) Adult failure to thrive: Status: Acute (6) Severe protein-calorie malnutrition: Status: Acute (7) Type 1 diabetes mellitus: Status: Acute Qualifiers: Diabetes mellitus complication status: with hyperglycemia Qualified Code(s): E10.65 - Type 1 diabetes mellitus with hyperglycemia (8) Generalized weakness: Status: Acute Plan Respiratory failure with hypoxia Off BiPAP to 4 L nasal cannula Muscular weakness? Muscle mass loss, nonfocal neuro exam Chest x-ray consistent with pulmonary edema She is also on antibiotics for aspiration pneumonia MARCELA YOSUIF? Creatinine improved to 1.6 from 2.1 Patient did not respond to fluid challenge Hypotension related ATN? We will give her 1 dose of Bumex today Modified barium swallow today Continue Zosyn for possible aspiration pneumonia She is also on doxycycline for positive MRSA PCR Type 1 diabetes no signs of DKA Echo shows preserved ejection fraction: Fluid overload related to ATN Hypoglycemic event noted, currently blood sugar is within normal range large and 13 units with sliding scale Full code Awaiting modified barium swallow DVT prophylaxis on board Attestations Medical Necessity Statement*: Continue medical management Time Spent in Patient Care: 15min 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 of Care Code Acute Loan And Credit Manager for [facility] Diagnoses MARCELA (acute kidney injury) N17.9 Acute respiratory failure with hypoxia and hypercapnia J96.01; J96.02 Acute respiratory failure with hypoxemia J96.01 Pneumonia J18.9 Adult failure to thrive R62.7 Severe protein-calorie malnutrition E43 Type 1 diabetes mellitus E10.65 Diabetes mellitus complication status: with hyperglycemia Generalized weakness R53.1
--- NOTE | 2021-08-21 10:12 | PC.SLP ---
Modified Barium Swallowing Study cannot be completed at this time since the patient is on BiPap. Will continue to monitor and perform MBS when patient is able to safely participate.
[2021-08-21 11:11] LABS: Glucose Point of Care 320 mg/dL (70-110)
--- NOTE | 2021-08-21 15:49 | FL_ITS ---
WS: [id number] Exam: FL barium swallow modifd [id number] Date/Time of Exam: 08/21/2021 12:51 PM Reason For Exam: Oropharyngeal dysphagia Fluoroscopy time: 2.0 minutes This procedure was performed in conjunction with the speech therapy service. Swallowing function at the level of the oropharynx was normal. There is no evidence of aspiration or penetration into the laryngeal inlet. The patient tolerated all consistencies of barium mixture foods tuffs without complication. The patient ingested a barium pill without incident. FL/FL barium swallow modifd [id number] IMPRESSION: 1. Unremarkable modified barium swallow. No aspiration or penetration noted. A separate report of recommendations and findings will follow from the speech t herapy department.
[2021-08-21 17:02] LABS: Glucose Point of Care 201 mg/dL (70-110)
[2021-08-21 20:26] LABS: Glucose Point of Care 330 mg/dL (70-110)
[2021-08-21] MEDS: insulin glargine 100 units/1 mL 13 UNIT SUBCUT (20:50)
[2021-08-22] VITALS (21 sets, daily range): BP systolic 150–162; BP diastolic 82–98; PULSE 93–116; RESP 16–24; TEMP 36.6–37; O2SAT 94–99
[2021-08-22] MEDS: piperacillin-tazobactam 3.375 GM in sodium chloride 0.9% (plus) 50 ML IV (02:07)
[2021-08-22] MEDS: ipratropium-albuterol 3 mL Neb INHALATION ×6 (03:24→23:21)
[2021-08-22 03:47] LABS: ABG PCO2 43.8 mmHg (35-45); ABG PH Result 7.37 (7.35-7.45); Arterial Blood Gas Hematocrit 30.3 % (37-47); Base Excess ABG -0.4 mmol/L (-2.0-2.0); Blood Gas Allen Test Pos; Blood Gas Sample Type Arterial; HCO3 ABG 25.1 mmol/L (22-26); PO2 ABG 84.1 mmHg (80.0-100.0)
[2021-08-22 03:48] LABS: Blood Gas Sample Site Radial, right; Oxygen Device NC
[2021-08-22 04:56] LABS: Basophils % 0.1 %; Hematocrit 28.6 % (37.0-47.0); Hemoglobin 9.3 g/dL (11.5-15.3); Lymphocytes # 0.8 10^3/uL (0.8-4.8); Lymphocytes % 12.1 %; Mean Corpuscular HGB Conc 32.5 g/dL (30.0-36.0); Mean Corpuscular Hemoglobin 29.4 pg (28.0-34.0); Mean Corpuscular Volume 90.5 fl (81-99); Mean Platelet Volume 9.7 fL (7.4-10.4); Monocytes # 0.3 10^3/uL (0.2-0.9); Monocytes % 4.4 %; Neutrophils # 5.63 10^3/uL (1.8-7.7); Neutrophils % 82.8 %; Nucleated Red Blood Cells % 0 %; Platelet Count 220 10^3/cmm (130-400); Red Blood Count 3.16 10^6/uL (4.1-5.3); Red Cell Distribution Width 14.9 % (12.1-15.1); White Blood Count 6.8 10^3/uL (4.0-10.0)
[2021-08-22 05:14] LABS: Alanine Aminotransferase 20 U/L (0-33); Albumin Level 2.7 g/dL (3.5-5.2); Alkaline Phosphatase 141 IU/L (35-105); Anion Gap 11.1 (5-19); Aspartate Amino Transferase 11 U/L (0-32); Blood Urea Nitrogen 44 mg/dL (6-20); Calcium 8.8 mg/dL (8.5-10.5); Carbon Dioxide 24 mmol/L (22-29); Chloride 110 mmol/L (98-107); Globulin 2.7 g/dL (1.3-4.6); Glomerular Filtration Rate 45.4 mL/min (90-130); Glucose 250 mg/dL (65-115); Osmolality Calculated 310 mOsm/kg (285-295); Potassium 5.1 mmol/L (3.5-5.1); Sodium 140 mmol/L (136-145); Total Bilirubin 0.2 mg/dL (0.15-1.2); Total Protein 5.4 g/dL (6.6-8.7)
[2021-08-22 06:13] LABS: Glucose Point of Care 239 mg/dL (70-110)
[2021-08-22] MEDS: gabapentin 100 mg Capsule PO ×3 (07:59→20:41)
[2021-08-22] MEDS: guaiFENesin 600 mg Tablet 1200 MG PO ×2 (07:59→17:14)
[2021-08-22] MEDS: metoprolol tartrate 25 mg Tablet 12.5 MG PO ×2 (07:59→17:15)
[2021-08-22] MEDS: doxycycline 100 mg Tablet PO ×2 (07:59→17:14)
[2021-08-22] MEDS: amoxicillin-clav 875-125 mg Tablet 1 TAB PO ×2 (07:59→17:14)
[2021-08-22] MEDS: bumetanide 1 mg Tablet PO (07:59)
[2021-08-22] MEDS: famotidine 20 mg Tablet PO ×2 (08:00→20:41)
[2021-08-22] MEDS: insulin lispro 100 unit/1 mL SUBCUT ×4 (08:00→21:21)
--- NOTE | 2021-08-22 08:59 | P.PN_ITS ---
Subjective Subjective: No signs of aspiration on modified barium swallow No overnight events Currently doing well on 2 L nasal cannula Requesting lumbar puncture for concern of GBS LP around 9 AM I encourage patient to get out of bed and walk around Vitals/I&O/Wt Last Vital Signs Temp 98.5 F 08/22/21 08:00 Pulse 113 H 08/22/21 08:13 Resp 22 H 08/22/21 08:08 BP 161/91 08/22/21 08:00 Pulse Ox 97 08/22/21 08:08 08/21/21 08/22/21 08/22/21 22:59 06:59 14:59 Intake Total 390 / 1330 350 / 1680 Output Total 500 / 1000 600 / 1600 Balance -110 / 330 -250 / 80 Weight last 48 hrs Weight 54.613 kg Weight 54.658 kg Physical Exam Narrative: Patient was sitting comfortably in her bed saturating well on 2 L nasal cannula Breakfast tray in front of her She does use respiratory sensory muscle sometimes, does use her shoulder girdle as well Symmetrical chest rise No audible stridor or wheezing Nasal tone Gag reflex intact Sensation is intact Areflexia Muscle mass loss Awake and alert No signs of meningitis S1, S2 sinus tachycardia Abdomen soft Urinary Catheter Management: Fall: Cath Placed During This Visit: yes Reason for Continuing Indwelling Catheter: Other Urinary Catheter Date of Insertion: 08/16/21 Urinary Catheter Time of Insertion: 18:45 Data : 08/22/21 04:20 08/22/21 04:20 Micro: Microbiology 08/16/21 20:55 Blood Culture - Final Blood NO GROWTH AFTER 5 DAYS 08/16/21 20:50 Blood Culture - Final Blood NO GROWTH AFTER 5 DAYS A&P Assessment and plan (1) MARCELA (acute kidney injury): Status: Acute (2) Acute respiratory failure with hypoxia and hypercapnia: Status: Acute (3) Acute respiratory failure with hypoxemia: Status: Acute (4) Pneumonia: Status: Acute (5) Severe protein-calorie malnutrition: Status: Acute (6) Type 1 diabetes mellitus: Status: Acute Qualifiers: Diabetes mellitus complication status: with hyperglycemia Qualified Code(s): E10.65 - Type 1 diabetes mellitus with hyperglycemia (7) Generalized weakness: Status: Acute Plan Patient currently doing well on 2 L nasal cannula I do appreciate hyperventilation and use of shoulder girdle In setting of areflexia and muscle weakness I would like to rule out GBS patient does endorse diarrhea before her presentation to the ER I would continue steroids for now After CSF studies they are positive we will discuss case with Dr. Quiroz Pneumonia, MRSA PCR positive, I will discontinue Zosyn change to Augmentin with doxycycline If CSF studies are negative this most likely is ICU related myopathy Modified barium swallow did not show any aspiration Preserve ejection fraction acute exacerbation Primary edema positive on x-ray Patient did respond to Bumex very well MARCELA related to fluid overload: Responded well to diuretics We will keep contrast-induced nephropathy in the differential as well Voiding trial today, Right IJ central line in place, I will remove central line at the time of d ischarge Type 1 diabetes euglycemic Full code DVT prophylaxis on board Attestations Medical Necessity Statement*: Will discharge within next 48 hours back to the facility Time Spent in Patient Care: 15mins 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 of Care Code 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
--- NOTE | 2021-08-22 09:09 | CT_ITS ---
WS: [id number] CT HEAD TECHNIQUE: Noncontrast CT of the head obtained from the skullbase to the vertex. CLINICAL INFORMATION: Myelopathy COMPARISON: None. DLP: 809.[address] scans at [facility] use at least one of these dose optimization techniques: automated e xposure control; mA and/or kV adjustment per patient size (includes targeted exams where dose is matc hed to clinical indication); or iterative reconstruction. FINDINGS: Wedge-shaped low-attenuation change RIGHT cerebellum extending to the cortex measuring approximately 4.0 x 2.6 cm. Additional surrounding patchy areas of low attenuation change. Findings are suspicious for subacute ischemia. Recommend further evaluation with MRI/MRA. 4th ventricle remains patent. No si gnificant mass effect. Normal cerebral hemispheres. No hydrocephalus. No extra-axial fluid collections. Paranasal sinuses an d mastoid air cells well aerated. Mild mucosal thickening mastoid tips. CT/CT head wo con* [id number] IMPRESSION: 1. Wedge-shaped area of low-attenuation change in the RIGHT cerebellum measuri ng 4.0 x 2.6 cm suspicious for subacute ischemia. Recommend further evaluation with MRI. No prior intracranial imaging for comparison. 2. 4th ventricle remains patent. No hydrocephalus. No significant mass effect. 3. No evidence of intracranial hemorrhage. 4. Mild mucosal thickening at the mastoid tips. Paranasal sinuses are well aer ated. Notified Yonas Buchanan MD at 08/22/2021 945 AM.
--- NOTE | 2021-08-22 09:53 | MRR_ITS ---
PROCEDURE INFORMATION: Exam: MR Head Without Contrast Exam date and time: 08/22/2021 9:53 AM Age: 41 years old Clinical indication: Pain; Headache; Additional info: CVA TECHNIQUE: Imaging protocol: MR of the head without contrast. COMPARISON: CT head wo con* [id number] 08/22/2021 9:38 AM FINDINGS: Brain: There is some minimal restricted diffusion centrally in the region of prior right cerebellar hemisphere infarct. T2 hyperintense signal changes are noted in the right cerebellar hemisphere correlating with region of infarct. No midline shift of the brain. No intracranial hemorrhage. Minor scattered punctate T2 hyperintense signal changes in the bilateral frontal lobe subcortical white matter. Scattered susceptibility artifact in the right cerebellar hemisphere infarct. Cerebral ventricles: Normal. No ventriculomegaly. Bones/joints: Unremarkable. Paranasal sinuses: Normal as visualized. No acute sinusitis. Mastoid air cells: Normal as visualized. No mastoid effusion. Orbital cavity: Unremarkable. Soft tissues: Unremarkable. 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 No superimposed acute abnormality identified compared to the prior imaging.
--- NOTE | 2021-08-22 09:53 | CT_ITS ---
WS: [id number] CTA HEAD AND NECK TECHNIQUE: Contrast enhanced CTA of the head and neck with coronal and sagittal reformatted images an d maximum intensity projection (MIP) images. NASCET criteria utilized. CLINICAL INFORMATION: cva COMPARISON: None. DLP: 1412.[address] scans at [facility] use at least one of these dose optimization techniques: automated e xposure control; mA and/or kV adjustment per patient size (includes targeted exams where dose is matc hed to clinical indication); or iterative reconstruction. FINDINGS: RIGHT: RIGHT common carotid artery is patent. No significant RIGHT ICA stenosis. ICA is patent to the skull base. LEFT: LEFT common carotid artery is patent. No significant LEFT ICA stenosis. LEFT ICA is patent to t he skull base. INTRACRANIAL CTA: Small LEFT vertebral artery is patent. RIGHT vertebral artery is occluded just distal to the origin a nd remains occluded to the C2 level. This reconstitutes at approximately C2-C3. Intracranial vertebra l artery is patent to the vertebrobasilar junction. This is likely due to RIGHT vertebral artery diss ection. Basilar artery is patent. Normal vascularity to the POLICE AIDE territory bilaterally. Both ICAs are patent a t the skull base. Normal vascularity to the EMILY MCA territories bilaterally. No intracranial flow-juarez iting stenosis or aneurysm. Hazy patchy groundglass opacities in the lung apices. Partially visualized small pleural effusions. Normal parapharyngeal fat. Normal posterior nasopharynx. IMPRESSION: 1. Large area of wedge-shaped low-attenuation RIGHT cerebellum suspicious for subacute ischemia. Thi s can be further evaluated MRI to better determine chronicity. No significant mass effect. No prior i ntracranial imaging. 2. 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 This reconstitutes at the C2 level and remains patent to the basilar junction. 3. Smaller but patent LEFT vertebral artery. 4. No significant ICA stenosis bilaterally. 5. Otherwise normal intracranial CTA. 6. Hazy opacities in the lung apices similar to the prior CTA. Small bilateral pleural effusions.
[2021-08-22 10:06] LABS: Vitamin B12 648 pg/mL (232-1245)
[2021-08-22] MEDS: iohexol 350 mg/mL 100 mL Btl IV (11:48)
--- NOTE | 2021-08-22 14:24 | ECG_ITS ---
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 Measurements Intervals [place] Rate: 105 P: 64 SD: 154 QRS: 28 QRSD: 73 T: 77 QT: 307 QTc: 407 Interpretive Statements SINUS TACHYCARDIA LEFT ATRIAL ENLARGEMENT [-0.15mV P WAVE IN V1/V2] Compared to ECG 08/17/2021 02:07:53 Sinus rhythm no longer present Myocardial infarct finding no longer present Electronically Signed On 08-22-2021 17:44:12 DRILLER OPERATOR by Angelic Ding M.D. [id number]
[2021-08-22] MEDS: acetaminophen 325 mg Tablet 650 MG PO (17:22)
--- NOTE | 2021-08-22 17:36 | PC.NURSE ---
patient taken to MRI
[2021-08-22] MEDS: enoxaparin 60 mg/0.6 mL Syringe 50 MG SUBCUT (19:35)
[2021-08-22] MEDS: clopidogrel 75 mg Tablet PO (19:35)
[2021-08-22 20:30] LABS: Glucose Point of Care 350 mg/dL (70-110)
[2021-08-22 20:30] LABS: Glucose Point of Care 180 mg/dL (70-110)
[2021-08-22] MEDS: heparin 5,000 unit/mL INJ 1 mL 5000 UNIT SUBCUT (20:41)
[2021-08-22 21:08] LABS: Glucose Point of Care 216 mg/dL (70-110)
[2021-08-22] MEDS: insulin glargine 100 units/1 mL 13 UNIT SUBCUT (21:21)
[2021-08-23] VITALS (11 sets, daily range): BP systolic 121–145; BP diastolic 72–85; PULSE 78–95; RESP 17–20; TEMP 36.3–36.6; O2SAT 91–100
[2021-08-23 03:01] LABS: Basophils % 0.4 %; Eosinophils % 0.5 %; Hematocrit 29.1 % (37.0-47.0); Hemoglobin 9.3 g/dL (11.5-15.3); Lymphocytes # 2.7 10^3/uL (0.8-4.8); Lymphocytes % 32.6 %; Mean Corpuscular Hemoglobin 28.9 pg (28.0-34.0); Mean Corpuscular Volume 90.4 fl (81-99); Mean Platelet Volume 9.6 fL (7.4-10.4); Monocytes # 0.6 10^3/uL (0.2-0.9); Monocytes % 7.5 %; Neutrophils # 4.94 10^3/uL (1.8-7.7); Neutrophils % 58.6 %; Nucleated Red Blood Cells % 0 %; Platelet Count 237 10^3/cmm (130-400); Red Blood Count 3.22 10^6/uL (4.1-5.3); White Blood Count 8.4 10^3/uL (4.0-10.0)
[2021-08-23] MEDS: ipratropium-albuterol 3 mL Neb INHALATION ×3 (03:13→11:11)
[2021-08-23 03:22] LABS: Alanine Aminotransferase 18 U/L (0-33); Albumin Level 2.6 g/dL (3.5-5.2); Alkaline Phosphatase 140 IU/L (35-105); Anion Gap 11.4 (5-19); Aspartate Amino Transferase 10 U/L (0-32); Blood Urea Nitrogen 44 mg/dL (6-20); Calcium 8.8 mg/dL (8.5-10.5); Carbon Dioxide 26 mmol/L (22-29); Chloride 112 mmol/L (98-107); Globulin 2.2 g/dL (1.3-4.6); Glomerular Filtration Rate 45.4 mL/min (90-130); Glucose 73 mg/dL (65-115); Osmolality Calculated 310 mOsm/kg (285-295); Potassium 4.4 mmol/L (3.5-5.1); Sodium 145 mmol/L (136-145); Total Bilirubin 0.2 mg/dL (0.15-1.2); Total Protein 4.8 g/dL (6.6-8.7)
--- NOTE | 2021-08-23 06:16 | PC.NURSE ---
SHIFT SUMMARY Has rested well tonight. Continuous pulse oximetry readings in high 90's all night with O2 per NC at 2l. Denies SOB. Occ moist sounding prod cough. Taking po fluids without difficulty. Tells me she feels she is doing better. Has been incont thick liquid BM's X3 tonight and does not always know when she has gone. Using Aloe [place] ointment to some redness rectal/sacral area from incont. Fall is draining well
[2021-08-23 07:12] LABS: Glucose Point of Care 83 mg/dL (70-110)
[2021-08-23 07:12] LABS: Glucose Point of Care 57 mg/dL (70-110)
--- NOTE | 2021-08-23 08:59 | P.DS_ITS ---
Discharge Providers Date of Admission: 08/16/21 19:12 Date of Discharge: August 23, 2021 Attending Provider at Admission: Ab Oro MD Attending Provider at Discharge: Yonas Buchanan MD Diagnoses at Discharge Discharge Diagnosis (1) MARCELA (acute kidney injury): Status: Acute (2) Acute respiratory failure with hypoxia and hypercapnia: Status: Acute (3) Acute respiratory failure with hypoxemia: Status: Acute (4) Pneumonia: Status: Acute (5) Severe protein-calorie malnutrition: Status: Acute (6) Type 1 diabetes mellitus: Status: Acute Qualifiers: Diabetes mellitus complication status: with hyperglycemia Qualified Code(s): E10.65 - Type 1 diabetes mellitus with hyperglycemia (7) Generalized weakness: Status: Acute Reason for Visit Reason for Visit: RESPIRATORY DISTRESS Hospital Course Hospital Course 49-year-old lady brought in from half-way, has history of DM1, failure to thrive, in the past needed transiently feeding tube, with recent admission from which went to half-way after found disheveled, dehydrated, covered in feces, with pressure ulcer, unable to care for self by her landlord at her apartment, with untreated diabetes. This time return to the hospital with shortness of breath and has had a turbulent admission, with severe respiratory distress on presentation, possibly worsened by fluid bolus, with pneumonia with tree-in-bud opacities, bronchitis, interstitial pulmonary edema also noted on imaging, CTA negative for PE, intubated in ER, transiently mechanically ventilated, weaned off well, extubated initially did well with nasal cannula, but subsequently deteriorated again, again received some IV fluid, required transiently BiPAP, but pulled through. Echo is okay. With some possibility of aspiration, although not obvious, was seen by speech, maintained on pur?ed diet, thin liquids, although very weak/ineffectual cough. MBS was ordered, but could not be done until Saturday. Overnight again worsened oxygenation, also hypercapnic with respiratory acidosis, started on BiPAP, improving. In addition to pneumonia and possible pulmonary edema (possibly due to poor nutritional status) at presenta tion, also sounding pretty tight, wheezing, with likely bronchial reactivity, escalated her breathing treatments, started on steroid. Discussed with her father that she is still at risk of worsening again and requiring additionally intubation. At that time would probably consider pulmonary evaluation, possibly consideration of tracheostomy, possibly feeding tube again to aid in recovery, perhaps LTAC. However her oxygenation improved and she was doing well on 2 L nasal cannula,, modified barium swallow did not show any signs of aspiration.. I was concerned about her muscle weakness and use of shoulder girdle to support her breathing, I requested CT head which showed right cerebellar infarct which was followed by CTA head and neck and MRI head with subacute cerebellar ischemic stroke. Right vertebral dissection however patency has not been compromised. I discussed my findings with the patient and her father. Considering her risk of falls lethargy and fatigue she is considered very high risk for fall, hemorrhagic stroke. Patient is agreeable for use of aspirin, Plavix and high-dose statins. At the time of discharge she was eating breakfast on her own. MARCELA improved with the use of diuretics. Creatinine worsened up to 2.1, at the time of discharge 1.3, Fall catheter and central line will be removed for discharge from the hospital. She will [facility] on 2 L nasal cannula. MRSA PCR positive she will get doxycycline, Augmentin has been added for possible aspiration pneumonitis. Physical Exam Narrative: Patient was sitting comfortably in her bed saturating well on 2 L nasal cannula She was eating breakfast Symmetrical chest rise No audible stridor or wheezing Nasal tone Gag reflex intact Sensation is intact Areflexia Muscle mass loss Awake and alert No signs of meningitis S1, S2 sinus tachycardia Abdomen soft Urinary Catheter Management: Fall: Cath Placed During This Visit: yes Reason for Continuing Indwelling Catheter: Other Urinary Catheter Date of Insertion: 08/16/21 Urinary Catheter Time of Insertion: 18:45 Discharge Data Studies Completed and Pending Completed Studies During Hospitalization Category Date Time Status CT head wo con* [id number] Routine Cat Scan 08/22/21 09:09 Completed CTA chest [CT angio chest PE protcl 65566] Routine Cat Scan 08/16/21 20:49 Completed CTA head neck [CT angio headneck* [id number]] Stat Cat Scan 08/22/21 09:53 Completed FL barium swallow modifd [id number] Routine Exams 08/21/21 15:49 Completed XR chest 1V portable [id number] Routine Exams 08/16/21 22:46 Completed XR chest 1V portable [id number] Stat Exams 08/16/21 17:08 Completed XR chest 1V portable [id number] Stat Exams 08/16/21 21:34 Completed XR chest 1V portable [id number] Stat Exams 08/20/21 06:25 Completed MR head wo con* [id number] Routine MRI 08/22/21 09:53 [place] [id number] Routine Ultrasound 08/17/21 08:14 Completed CV. echo complete* [id number] Routine Ultrasound 08/17/21 20:38 Completed US renal BI* [id number] Routine Ultrasound 08/20/21 15:22 Completed Pending at discharge Category Date Time Status COVID [SARS Covid-2 Antigen] Routine Lab 08/23/21 07:26 Uncollected IGG CSF [Immunoglobulin G, CSF] Routine Lab 08/21/21 18:12 Ordered MOG CSF [Myelin Oligodendrocyte AB CSF] Routine Lab 08/21/21 18:12 Ordered Oligoclonal Bands IGG, CSF Routine Lab 08/21/21 18:12 Ordered Sputum Culture Routine Lab 08/16/21 23:47 Uncollected Total Protein CSF Routine Lab 08/21/21 18:12 Uncollected Radiology Impressions Chest CTA 08/16/21 20:49 IMPRESSION: 1. No evidence of pulmonary embolism. 2. Bilateral pleural effusions. 3. Bronchitis and pneumonia. 4. Interstitial pulmonary edema. Chest X-Ray 08/20/21 06:25 IMPRESSION: Findings consistent with pulmonary edema with increasing left basilar patchy consolidation, superimposed pneumonia not excluded. Renal Ultrasound 08/20/21 15:22 IMPRESSION: No acute sonographic findings. Modified Barium Swallow 08/21/21 15:49 IMPRESSION: 1. Unremarkable modified barium swallow. No aspiration or penetration noted. A separate report of recommendations and findings will follow from the speech therapy department. Head CT 08/22/21 09:09 IMPRESSION: 1. Wedge-shaped area of low-attenuation change in the RIGHT cerebellum measuring 4.0 x 2.6 cm suspicious for subacute ischemia. Recommend further evaluation with MRI. No prior intracranial imaging for comparison. 2. 4th ventricle remains patent. No hydrocephalus. No significant mass effect. 3. No evidence of intracranial hemorrhage. 4. Mild mucosal thickening at the mastoid tips. Paranasal sinuses are well aerated. Notified Yonas Buchanan MD at 08/22/2021 945 AM. Head MRI 08/22/21 09:53 IMPRESSION: Sequela of right cerebellar hemisphere ischemic infarct. No superimposed acute abnormality identified compared to the prior imaging. Laboratory Results WBC 8.4 10^3/uL (4.0-10.0) 08/23/21 02:53 Corrected WBC Cancelled 08/21/21 04:15 RBC 3.22 10^6/uL (4.1-5.3) L 08/23/21 02:53 Hgb 9.3 g/dL (11.5-15.3) L 08/23/21 02:53 Hct 29.1 % (37.0-47.0) L 08/23/21 02:53 MCV 90.4 fl (81-99) 08/23/21 02:53 MCH 28.9 pg (28.0-34.0) 08/23/21 02:53 MCHC 32.0 g/dL (30.0-36.0) 08/23/21 02:53 RDW 15.0 % (12.1-15.1) 08/23/21 02:53 Plt Count 237 10^3/cmm (130-400) 08/23/21 02:53 MPV 9.6 fL (7.4-10.4) 08/23/21 02:53 Gran % Cancelled 08/21/21 04:15 Neut % (Auto) 58.6 % 08/23/21 02:53 Lymph % (Auto) 32.6 % 08/23/21 02:53 Hendricks % (Auto) 7.5 % 08/23/21 02:53 Eos % (Auto) 0.5 % 08/23/21 02:53 Baso % (Auto) 0.4 % 08/23/21 02:53 Neut # (Auto) 4.94 10^3/uL (1.8-7.7) 08/23/21 02:53 Lymph # (Auto) 2.7 10^3/uL (0.8-4.8) 08/23/21 02:53 Hendricks # (Auto) 0.6 10^3/uL (0.2-0.9) 08/23/21 02:53 Eos # (Auto) 0.0 10^3/uL (0.0-0.8) 08/23/21 02:53 Baso # (Auto) 0.0 10^3/uL (0.0-0.1) 08/23/21 02:53 Absolute Gran (auto) Cancelled 08/21/21 04:15 Nucleated RBC % (auto) 0 % 08/23/21 02:53 Nucleated RBCs # 0.0 /100WBC 08/23/21 02:53 D-Dimer 1.75 ug/mIFEU (0-0.59) H 08/18/21 02:07 Specimen Type Arterial 08/22/21 03:35 Sample Site Radial, right 08/22/21 03:35 ABG pH 7.37 (7.35-7.45) 08/22/21 03:35 ABG pCO2 43.8 mmHg (35-45) 08/22/21 03:35 ABG pO2 84.1 mmHg (80.0-100.0) 08/22/21 03:35 ABG HCO3 25.1 mmol/L (22-26) 08/22/21 03:35 ABG O2 Saturation 97.2 08/20/21 12:39 ABG Base Excess -0.4 mmol/L (-2.0-2.0) 08/22/21 03:35 Kaushik Test Pos 08/22/21 03:35 A-a O2 Gradient 18.3 mmHg (5-10) H 08/20/21 12:39 Hematocrit 30.3 % (37-47) L 08/22/21 03:35 Hgb O2 Saturation 95.1 % (95-100) 08/20/21 12:39 Carboxyhemoglobin 1.2 %THgb (0.4-20.1) 08/20/21 12:39 Methemoglobin 0.9 % (0.4-1.5) 08/20/21 12:39 Total Hemoglobin 9.3 g/dL (12-16) L 08/20/21 12:39 Sodium 138.0 mmol/L (131-143) 08/20/21 12:39 Potassium 4.9 mmol/L (3.5-5.0) 08/20/21 12:39 Glucose 166.0 mg/dL (70-115) H 08/20/21 12:39 Ionized Calcium 1.2 mmol/L (1.1-1.4) 08/20/21 12:39 O2 Delivery Device Nc 08/22/21 03:35 O2 Liters/Min 2.0 % 08/22/21 03:35 FiO2 40.0 % 08/20/21 12:39 Tidal Volume 0.40 08/17/21 03:29 PEEP 10.0 cmH20 08/20/21 12:39 Casualty Insurance Claim Adjuster ID [email or web address] 08/22/21 03:35 Sodium 145 mmol/L (136-145) 08/23/21 02:53 Potassium 4.4 mmol/L (3.5-5.1) 08/23/21 02:53 Chloride 112 mmol/L (98-107) H 08/23/21 02:53 Carbon Dioxide 26 mmol/L (22-29) 08/23/21 02:53 Anion Gap 11.4 (5-19) 08/23/21 02:53 BUN 44 mg/dL (6-20) H 08/23/21 02:53 Creatinine 1.3 mg/dL (0.5-0.9) H 08/23/21 02:53 GFR Calculation 45.4 mL/min (90-130) L 08/23/21 02:53 Glucose 73 mg/dL (65-115) 08/23/21 02:53 POC Glucose 83 mg/dL (70-110) 08/23/21 07:04 Calculated Osmolality 310 mOsm/kg (285-295) H 08/23/21 02:53 Lactic Acid 1.6 mmol/L (0.5-2.2) 08/16/21 18:50 Calcium 8.8 mg/dL (8.5-10.5) 08/23/21 02:53 Magnesium 2.0 mg/dL (1.7-2.3) 08/16/21 20:50 Total Bilirubin 0.2 mg/dL (0.15-1.2) 08/23/21 02:53 AST 10 U/L (0-32) 08/23/21 02:53 ALT 18 U/L (0-33) 08/23/21 02:53 Alkaline Phosphatase 140 IU/L (35-105) H 08/23/21 02:53 Creatine Kinase 135 U/L (26-192) 08/16/21 17:35 Troponin T Baseline 56 ng/L (0-10) H 08/16/21 17:35 Troponin T 120 Minute 64.94 ng/L (0-10) H 08/16/21 20:09 Delta Troponin T 8.94 ABS# (0-10) 08/16/21 20:09 Troponin T Hi Sens 6Hr 66.27 ng/L (0-10) H 08/17/21 00:35 Troponin T Hi Sens 6Hr Delta 10.27 ng/L (0-12) 08/17/21 00:35 NT-Pro-B Natriuret Pep 4376 pg/mL (0-125) H 08/16/21 17:35 Total Protein 4.8 g/dL (6.6-8.7) L 08/23/21 02:53 Albumin 2.6 g/dL (3.5-5.2) L 08/23/21 02:53 Globulin 2.2 g/dL (1.3-4.6) 08/23/21 02:53 Vitamin B12 648 pg/mL (232-1245) 08/22/21 04:52 HCG, Qual Negative (Negative) 08/16/21 17:35 Urine Color Yellow (Yellow) 08/16/21 18:32 Urine Appearance Clear (CLEAR) 08/16/21 18:32 Urine pH 6.5 (5-7) 08/16/21 18:32 Ur Specific [place] 1.015 (1.005-1.030) 08/16/21 18:32 Urine Protein 3+ (Negative) H 08/16/21 18:32 Urine Glucose (UA) Trace (Normal) H 08/16/21 18:32 Urine Ketones Negative (Negative) 08/16/21 18:32 Urine Blood Neg (Negative) 08/16/21 18:32 Urine Nitrate Negative (Negative) 08/16/21 18:32 Urine Bilirubin Neg (Negative) 08/16/21 18:32 Urine Urobilinogen Norm mg/dL (Negative) 08/16/21 18:32 Ur Leukocyte Esterase Negative (Negative) 08/16/21 18:32 Urine RBC 0-4 /hpf (0-2) H 08/16/21 18:32 Urine WBC 0-4 /hpf (0-5) H 08/16/21 18:32 Ur Squamous Epith Cells 0-4 /hpf (0-5) H 08/16/21 18:32 Amorphous Sediment Not Reportable 08/16/21 18:32 Urine Bacteria Trace /hpf (NONE) 08/16/21 18:32 Ur Random Sodium 57 mmol/L 08/20/21 15:24 Urine Creatinine 42 mg/dL (28-217) 08/20/21 15:24 Salicylates < 0.3 mg/dL (3-10) L 08/16/21 20:09 Urine Opiates Screen Negative ng/mL (Negative) 08/16/21 18:32 Acetaminophen < 5.0 ug/mL (10-30) L 08/16/21 20:09 Ur Barbiturates Screen Negative ng/mL (Negative) 08/16/21 18:32 Ur Phencyclidine Scrn Negative ng/mL (Negative) 08/16/21 18:32 Ur Amphetamines Screen Negative ng/mL (Negative) 08/16/21 18:32 U Benzodiazepines Scrn Negative ng/mL (Negative) 08/16/21 18:32 Urine Cocaine Screen Negative ng/mL (Negative) 08/16/21 18:32 U Marijuana (THC) Screen Negative ng/mL (Negative) 08/16/21 18:32 Serum Ketones Negative (Negative) 08/16/21 17:35 Coronavirus 229E (PCR) Not detected (NOT DETECT) 08/16/21 17:59 Hepatitis A IgM Ab Non-reactive (Nonreactive) 08/16/21 17:35 Hep Bs Antigen Non-reactive (Nonreactive) 08/16/21 17:35 Hep B Core IgM Ab Non-reactive (Nonreactive) 08/16/21 17:35 Hepatitis C Antibody Non-reactive (Nonreactive) 08/16/21 17:35 SARS-CoV-2 (PCR) Not detected (NOT DETECT) 08/16/21 17:59 Vitals Last Vital Signs Temp 97.8 F 08/23/21 07:19 Pulse 84 08/23/21 07:54 Resp 18 08/23/21 07:47 BP 145/85 08/23/21 07:19 Pulse Ox 100 08/23/21 07:47 Discharge Plan Discharge Patient Disposition: Xfer SNF Condition: Stable Prescriptions: New clopidogrel 75 mg Tablet 75 mg PO DAILY Qty: 21 0RF doxycycline monohydrate 100 mg Tablet 100 mg PO BID Qty: 8 0RF bumetanide 1 mg Tablet 1 mg PO DAILY Qty: 60 0RF amoxicillin-pot clavulanate 875-125 mg Tablet 1 tab PO BID Qty: 8 0RF Mucinex 600 mg Tablet Extended Release 12hr 1,200 mg PO BID Qty: 20 0RF Adult Aspirin Regimen 81 mg tablet,delayed release (DR/EC) 81 mg PO DAILY Qty: 90 3RF atorvastatin 80 mg tablet 80 mg PO DAILY Qty: 90 4RF Continued paroxetine HCl [Paxil] 20 mg tablet 20 mg PO QAM 0RF gabapentin 100 mg capsule 100 mg PO TID 0RF ondansetron HCl 4 mg tablet 4 mg PO Q8H PRN (Reason: Nausea) 0RF metoprolol tartrate 25 mg tablet 12.5 mg PO BID 0RF acetaminophen 325 mg capsule 325 mg PO Q6H PRN (Reason: Pain) 0RF pantoprazole 40 mg tablet,delayed release (DR/EC) 40 mg PO QAM 0RF Systane Balance 0.6 % drops 1 drop ophthalmic (eye) BID PRN (Reason: Dry Eyes) 0RF mirtazapine 15 mg Tablet 7.5 mg PO BEDTIME Qty: 30 0RF multivitamin with folic acid [Thera] 400 mcg Tablet 1 tab PO DAILY Qty: 30 0RF Lantus U-100 Insulin 100 unit/mL Solution 16 unit SUBCUT DAILY 0RF Senna-S 8.6-50 mg Tablet 1 tab-cap PO BID PRN (Reason: Constipation) 0RF Milk of Magnesia 400 mg/5 mL Suspension 30 ml PO DAILY PRN (Reason: Constipation) 0RF Miralax 17 gram/dose Powder 17 g PO DAILY PRN (Reason: Constipation) 0RF Novolog Flexpen U-100 Insulin 100 unit/mL (3 mL) Insulin Pen See Rx Instructions .ROUTE .COMPLEX 0RF Rx Instructions: per sliding scale Discharge Orders: Discharge Order (Routine); Ordered 08/23/21 Ordered By: Yonas Buchanan Referrals: [facility] [Outside] Discharge Diet: Diabetic Discharge Activity: Increase activity as tolerated and As per PT/OT instructions Patient Instructions: Ischemic Stroke (DC) Discharge Attestations Time Spent in Discharge Care*: less than 30 min Quality Metrics Clinical Quality Measures [ No reported AMI, CVA or VTE this stay] 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 of Care Code Acute Chg FW DC note Diagnoses MARCELA (acute kidney injury) N17.9 Acute respiratory failure with hypoxia and hypercapnia J96.01; J96.02 Acute respiratory failure with hypoxemia J96.01 Pneumonia J18.9 Severe protein-calorie malnutrition E43 Type 1 diabetes mellitus E10.65 Diabetes mellitus complication status: with hyperglycemia Generalized weakness R53.1
[2021-08-23] MEDS: bumetanide 1 mg Tablet PO (09:15)
[2021-08-23] MEDS: doxycycline 100 mg Tablet PO (09:15)
[2021-08-23] MEDS: guaiFENesin 600 mg Tablet 1200 MG PO (09:15)
[2021-08-23] MEDS: metoprolol tartrate 25 mg Tablet 12.5 MG PO (09:16)
[2021-08-23] MEDS: gabapentin 100 mg Capsule PO (09:18)
[2021-08-23] MEDS: amoxicillin-clav 875-125 mg Tablet 1 TAB PO (09:18)
[2021-08-23] MEDS: clopidogrel 75 mg Tablet PO (09:18)
[2021-08-23] MEDS: enoxaparin 60 mg/0.6 mL Syringe 50 MG SUBCUT (09:19)
[2021-08-23] MEDS: heparin 5,000 unit/mL INJ 1 mL 5000 UNIT SUBCUT (09:19)
--- NOTE | 2021-08-23 09:28 | PC.OT ---
TREATMENT ATTEMPTED; PATIENT IS IN PROCESS OF DISCHARGE WITH NURSING.
[2021-08-23] MEDS: famotidine 20 mg Tablet PO (09:34)
--- NOTE | 2021-08-23 09:37 | PC.NURSE ---
Doctor discontinued home O2 eval due to patient going to Skilled Nursing
[2021-08-23 10:26] LABS: SARS Covid-2 Antigen Negative (Negative)
--- NOTE | 2021-08-23 12:50 | PC.NURSE ---
Called report to [facility] to Marlena Bustos RN
[2021-08-24 07:25] LABS: Glucose Point of Care 248 mg/dL (70-110)
== END 2021-08-23 12:53 | disposition skilled nursing facility (03) | DRG 208 ==
LOC: ER 19:11 → ICU 20:34 → MEDSURG 08-18 17:01
PROVIDERS: Family Medicine; Internal Medicine; Student in an Organized Health Care Education/Training Program; Admitting Provider Internal Medicine; Emergency Provider Emergency Medicine; Visit Provider Internal Medicine
DX: J96.01 Acute respiratory failure with hypoxia (principal); J18.9 Pneumonia, unspecified organism; E43 Unspecified severe protein-calorie malnutrition; I77.74 Dissection of vertebral artery; N17.9 Acute kidney failure, unspecified; J96.02 Acute respiratory failure with hypercapnia; E10.65 Type 1 diabetes mellitus with hyperglycemia; Z86.73 Personal history of transient ischemic attack (TIA), and cerebral infarction without residual deficits; R74.01 Elevation of levels of liver transaminase levels; E87.5 Hyperkalemia; R62.7 Adult failure to thrive; R53.1 Weakness; B95.62 Methicillin resistant Staphylococcus aureus infection as the cause of diseases classified elsewhere; Z86.14 Personal history of Methicillin resistant Staphylococcus aureus infection
CPT/HCPCS: 31500; 36415; 36416; 36556; 36592; 36600; 51702; 70450; 70496; 70498; 70551; 71045; 71275; 74230; 76770; 80048; 80051; 80053; 80074; 80306; 80307; 81001; 82009; 82330; 82550; 82570; 82607; 82803; 82805; 82962; 83605; 83735; 83880; 84132; 84300; 84484; 84703; 85025; 85378; 87040; 87070; 87205; 87426; 87635; 87641; 92526; 92610; 92611; 93005; 93306; 93970; 94002; 94003; 94640; 94660; 94762; 94799; 96365; 96366; 96367; 96372; 96375; 97110; 97116; 97161; 97165; 97530; 99291; C1751; J0330; J0692; J1644; J1650; J1815 ×2; J1940; J2250; J2405; J2543; J2704; J2920; J3010; J3490; J7030; J7040; J7050; P9047; Q9967

== ENCOUNTER 2021-12-04 04:23 | Inpatient (IN) | payer MEDICAID, SELFPAY ==
[2021-12-04] VITALS (53 sets, daily range): BP systolic 78–169; BP diastolic 42–105; PULSE 82–121; RESP 12–20; TEMP 36.9–37.3; O2SAT 91–100; BMI 21.6
--- NOTE | 2021-12-04 04:46 | XRR_ITS ---
PROCEDURE INFORMATION: Exam: XR Chest Exam date and time: 12/04/2021 5:38 AM Age: 41 years old Clinical indication: Device placement; Ett placement (vent status); Dyspnea; Patient HX: Intubated, og tube, picc placement; Additional info: SOB hypoxia TECHNIQUE: Imaging protocol: XR of the chest. Views: 1 view. COMPARISON: CR (CHEST, ) 08/20/2021 6:48 AM FINDINGS: Tubes, catheters and devices: Endotracheal tube approximately 3 cm above the lavon. Left-sided central venous line noted with the distal tip at the cavoatrial junction. An enteric tube is noted extending below the level of the diaphragm and out of the field of view. Lungs: Layering ground-glass densities in the lung bases. Peripheral ground-glass consolidation in the mid left lung. Pleural spaces: Blunting of the left costophrenic angle. The right costophrenic angle remains sharp. Heart/Mediastinum: The cardiomediastinal silhouette is within normal limits. Bones/joints: Unremarkable. XR/XR chest 1V portable [id number] IMPRESSION: 1. Endotracheal tube approximately 3 cm above the lavon. 2. Left-sided central venous line noted with the distal tip at the cavoatrial junction. 3. An enteric tube is noted extending below the level of the diaphragm and out of the field of view. 4. Small bilateral pleural effusions. 5. Consolidation in the left lung concerning for airspace disease.
[2021-12-04 04:54] LABS: Basophils # 0.1 10^3/uL (0.0-0.1); Basophils % 0.4 %; Eosinophils # 0.2 10^3/uL (0.0-0.8); Eosinophils % 1.3 %; Hematocrit 33.1 % (37.0-47.0); Hemoglobin 10.5 g/dL (11.5-15.3); Lymphocytes % 14.7 %; Mean Corpuscular HGB Conc 31.7 g/dL (30.0-36.0); Mean Corpuscular Hemoglobin 28.2 pg (28.0-34.0); Mean Platelet Volume 9.8 fL (7.4-10.4); Monocytes # 0.7 10^3/uL (0.2-0.9); Neutrophils # 10.52 10^3/uL (1.8-7.7); Neutrophils % 78.2 %; Nucleated Red Blood Cells % 0 %; Platelet Count 212 10^3/cmm (130-400); Red Blood Count 3.72 10^6/uL (4.1-5.3); Red Cell Distribution Width 13.8 % (12.1-15.1); White Blood Count 13.5 10^3/uL (4.0-10.0)
[2021-12-04 05:10] LABS: Lactic Sepsis W/Reflex 0.6 mmol/L (0.5-2.2)
[2021-12-04] MEDS: rocuronium 10 mg/mL INJ 5mL 30 MG IVP (05:13)
[2021-12-04] MEDS: midazolam 1 mg/mL INJ 2 mL 2 MG IVP (05:16)
[2021-12-04 05:20] LABS: NT Pro B Type Natriuretic Pept 4152 pg/mL (0-125); Procalcitonin 0.58 ng/mL (0-0.5)
[2021-12-04] MEDS: propofol 1,000 MG/100 ML INJ 6.65 MG IV ×2 (05:24→05:56)
[2021-12-04 05:35] LABS: Alanine Aminotransferase 16 U/L (0-33); Albumin Level 3.1 g/dL (3.5-5.2); Alkaline Phosphatase 168 IU/L (35-105); Anion Gap 12.4 (5-19); Aspartate Amino Transferase 14 U/L (0-32); Blood Urea Nitrogen 43 mg/dL (6-20); C Reactive Protein 4.9 mg/L (0.0-4.9); Calcium 7.8 mg/dL (8.5-10.5); Carbon Dioxide 27 mmol/L (22-29); Chloride 105 mmol/L (98-107); Globulin 2.7 g/dL (1.3-4.6); Glomerular Filtration Rate 41.6 mL/min (90-130); Glucose 271 mg/dL (65-115); Osmolality Calculated 308 mOsm/kg (285-295); Potassium 5.4 mmol/L (3.5-5.1); Sodium 139 mmol/L (136-145); Total Bilirubin 0.2 mg/dL (0.15-1.2); Total Protein 5.8 g/dL (6.6-8.7)
--- NOTE | 2021-12-04 05:46 | ECG_ITS ---
[facility] Test Date: 2021-12-04 Pat Name: Mariana Ace Department: Room: Gender: Female Delivery Professional: : 1980 Requested By: Jermain Dejesus Order Number: [id number] Katelin MD: Flavio Cooper M.D. Measurements Intervals [place] Rate: 121 P: 78 CA: 179 QRS: 73 QRSD: 81 T: 90 QT: 305 QTc: 433 Interpretive Statements SINUS TACHYCARDIA Left atrial abnormality POSSIBLE RIGHT VENTRICULAR CONDUCTION DELAY [RSR (QR) IN V1/V2] ABNORMAL RHYTHM ECG Compared to ECG 08/22/2021 15:04:28 No change Electronically Signed On 12-04-2021 16:22:46 CDT by Flavio Cooper M.D. [email or web address]
--- NOTE | 2021-12-04 05:54 | ED_ITS ---
HPI - SOB/Dyspnea General: Chief Complaint: Shortness of Breath/Dyspnea Stated Complaint: SOB Time Seen by Provider: 12/04/21 04:30 History of Present Illness: HPI Narrative: 41-year-old female with a history of congestive heart failure and renal failure. She presents with shortness of breath. She resides in a long-term, and had progressively gotten more short of breath since yesterday. No fever. Despite oxygen, she remained hypoxic there. She presents by EMS, on a nonrebreather at 12 L with saturations of 90%. She is able to answer yes and no questions only. Associated symptoms: Reports chest pain; Deny fever(s) Review of Systems General: Reports: ROS unobtainable due to medical condition and ROS unobtainable due to mental status Const: Denies: fever(s) Card: Reports: chest pain Resp: Reports: dyspnea PFSH ED PFSH: Medical History Adult failure to thrive Aftercare following surgery of the genitourinary system Patient is a status post diagnostic laparoscopy with lysis of adhesions and appendectomy 2 weeks ago. No complications. Patient was counseled regarding pathology report showing acute appendicitis. Follow-up in 4 weeks Breast lump on right side at 9 o'clock position C. difficile colitis Decubitus ulcers Generalized weakness MRSA (methicillin resistant staph aureus) culture positive Patient denies medical problems Perinephric abscess History of perinephric and retroperitoneal abscess with yeast in 2018, required percutaneous drainage and had complicated hospital course with respiratory failure, gram-negative pneumonia, thoracentesis, BiPAP therapy r equirement, intolerance of oral intake, PEG tube placement, intolerance of tube feeds Secondary amenorrhea 39-year-old female with secondary amenorrhea. Progestin challenge test described Patient referred to the progestin challenge test she had a withdrawal bleeding from 05/07/2019 to 05/13/2019. Severe protein-calorie malnutrition Trichotillomania Type 1 diabetes mellitus Surgical History deliv NOS-unsp 1999 History of cholecystectomy 2011 History of tubal ligation 2000 S/P appendectomy S/P laparoscopy 05/20/2019- Diagnostic Laparoscopy, Lysis of Adhesions performed by Dr. Shah at [facility] Appendectomy performed by Dr. Robledo on 05/20/2019 Family History Grandmother Diabetes MATERNAL Cancer paternal Grandfather Heart disease maternal Cancer paternal Family/Other Breast cancer Paternal Aunt Social History Smoking and tobacco status: current every day smoker cigarettes Packs smoked per day: 1 Years cigarettes smoked: 28 Alcohol intake: never Additional social history: Well balanced diet Physical Exam Const: EXAM LIMITATIONS: altered mental status GENERAL APPEARANCE: cooperative, in distress, lethargic, ill appearing and frail appearing ORIENTATION/CONSCIOUSNESS: Yes lethargic HENMT: COMMON NORMALS: normocephalic, atraumatic and Normal external nose present HEAD & SCALP: normocephalic and atraumatic FACE & SINUS: normal facial exam and face symmetric NOSE: Normal external nose present TEETH & GINGIVA: Yes edentulous Eye: COMMON NORMALS: Equal, round and reactive pupils present and EOMs intact bilaterally PUPIL: Yes Equal, round and reactive pupils present Chest: COMMONS NORMALS: normal inspection of the chest CHEST: Yes Symmetrical chest wall rise Resp: EFFORT & INSPECTION: Yes abnormal respiratory pattern, Yes respiratory distress, Yes labored and Yes uses accessory muscles AUSCULTATION: diminished lung sounds Cardio: COMMON NORMALS: regular rhythm RATE: tachycardic RHYTHM: regular rhythm GI: COMMON NORMALS: Normal to inspection, nondistended, normoactive bowel sounds present and Soft to palpation PALPATION: Yes Soft to palpation Extremity: GENERAL: Yes edema (minimal) Neuro: ROB COMA SCALE: document GCS findings Rob coma scale eye opening: Spontaneous [place] coma scale verbal response: Confused Rob coma scale motor response: Obey commands [place] coma scale total score: 14 SENSORIUM/ORIENTATION: Yes lethargic Procedures Central Line Placement Left IJ: Time Out Performed: No Patient Placed on Monitor/Pulse Ox: Yes MD Prep: mask, gown and gloves Central Line Prep: Chlorhexidine scrub Local Anesthetic: lidocaine 1% Amount of anesthesia used (mL): 3 Ultrasound Used for Placement: Yes Central Line Lumen Inserted: triple Post Procedure: sutured in place, good blood return, all ports aspirated, flushed, capped and sterile dressing applied Post Procedure X-Ray: tip of catheter in good position and no pneumothorax seen Patient Tolerated Procedure: well and no complications Complications: none Intubation Time out performed: No sedative: Etomidate Mg Given: 15 paralytic: Rocuronium Mg Given: 30 Laryngoscope: Yamini (4) ET Tube Size: 8 ET Tube Uncuffed: No Tube Secured Depth (cm): 22 Tube Placement Confirmation: visualized tube passing through cords, equal breath sounds bilaterally and confirmation by capnometry Patient Tolerated Procedure: well and no complications Intubation Complications: none Course Vital Signs: Vital signs: Vital Signs Temperature 98.4 F 12/04/21 04:28 Pulse Rate 95 12/04/21 06:26 Respiratory Rate 17 12/04/21 06:26 Blood Pressure 130/87 12/04/21 06:26 Pulse Oximetry 100 12/04/21 06:26 MDM - SOB/Dyspnea Medical Decision Making 41-year-old female presents with sats of 90% on 12 L nonrebreather. She has de creased mental status that is significant, and worsening. Once IV was established, patient underwent RSI without complication. Chest x-ray shows pulmonary edema. Triple-lumen was placed, and is in appropriate position. She is requiring quite a bit of sedation, on propofol, Versed, and fentanyl now. She has received IV Lasix. Fall is in place for accurate output. Her creatinine is 1.4 with a BUN of 43. Potassium is mildly elevated at 5.4 but without EKG changes. She will go to the ICU. Lab Data : 12/04/21 04:40 12/04/21 04:40 Labs/Radiology: Radiology Impressions Chest X-Ray 12/04/21 04:46 IMPRESSION: 1. Endotracheal tube approximately 3 cm above the lavon. 2. Left-sided central venous line noted with the distal tip at the cavoatrial junction. 3. An enteric tube is noted extending below the level of the diaphragm and out of the field of view. 4. Small bilateral pleural effusions. 5. Consolidation in the left lung concerning for airspace disease. Laboratory Results WBC 13.5 10^3/uL (4.0-10.0) H 12/04/21 04:40 RBC 3.72 10^6/uL (4.1-5.3) L 12/04/21 04:40 Hgb 10.5 g/dL (11.5-15.3) L 12/04/21 04:40 Hct 33.1 % (37.0-47.0) L 12/04/21 04:40 MCV 89.0 fl (81-99) 12/04/21 04:40 MCH 28.2 pg (28.0-34.0) 12/04/21 04:40 MCHC 31.7 g/dL (30.0-36.0) 12/04/21 04:40 RDW 13.8 % (12.1-15.1) 12/04/21 04:40 Plt Count 212 10^3/cmm (130-400) 12/04/21 04:40 MPV 9.8 fL (7.4-10.4) 12/04/21 04:40 Neut % (Auto) 78.2 % 12/04/21 04:40 Lymph % (Auto) 14.7 % 12/04/21 04:40 [place] % (Auto) 5.0 % 12/04/21 04:40 Eos % (Auto) 1.3 % 12/04/21 04:40 Baso % (Auto) 0.4 % 12/04/21 04:40 Neut # (Auto) 10.52 10^3/uL (1.8-7.7) H 12/04/21 04:40 Lymph # (Auto) 2.0 10^3/uL (0.8-4.8) 12/04/21 04:40 [place] # (Auto) 0.7 10^3/uL (0.2-0.9) 12/04/21 04:40 Eos # (Auto) 0.2 10^3/uL (0.0-0.8) 12/04/21 04:40 Baso # (Auto) 0.1 10^3/uL (0.0-0.1) 12/04/21 04:40 Nucleated RBC % (auto) 0 % 12/04/21 04:40 Nucleated RBCs # 0.0 /100WBC 12/04/21 04:40 Specimen Type Arterial 12/04/21 04:46 Sample Site Radial, right 12/04/21 04:46 ABG pH 7.25 (7.35-7.45) L 12/04/21 04:46 ABG pCO2 59.8 mmHg (35-45) H 12/04/21 04:46 ABG pO2 93.6 mmHg (80.0-100.0) 12/04/21 04:46 ABG HCO3 26.3 mmol/L (22-26) H 12/04/21 04:46 ABG Base Excess -1.6 mmol/L (-2.0-2.0) 12/04/21 04:46 Kaushik Test Pos 12/04/21 04:46 Hematocrit 32.2 % (37-47) L 12/04/21 04:46 Hgb O2 Saturation 95.7 % (95-100) 12/04/21 04:46 Carboxyhemoglobin 0.8 %THgb (0.4-20.1) 12/04/21 04:46 Methemoglobin 0.2 % (0.4-1.5) L 12/04/21 04:46 Total Hemoglobin 10.5 g/dL (12-16) L 12/04/21 04:46 O2 Delivery Device Vent 12/04/21 04:46 FiO2 100.0 % 12/04/21 04:46 Tidal Volume 0.40 12/04/21 04:46 PEEP 5.0 cmH20 12/04/21 04:46 Quartz Orientator ID ellpe 12/04/21 04:46 Sodium 139 mmol/L (136-145) 12/04/21 04:40 Potassium 5.4 mmol/L (3.5-5.1) H 12/04/21 04:40 Chloride 105 mmol/L (98-107) 12/04/21 04:40 Carbon Dioxide 27 mmol/L (22-29) 12/04/21 04:40 Anion Gap 12.4 (5-19) 12/04/21 04:40 BUN 43 mg/dL (6-20) H 12/04/21 04:40 Creatinine 1.4 mg/dL (0.5-0.9) H 12/04/21 04:40 GFR Calculation 41.6 mL/min (90-130) L 12/04/21 04:40 Glucose 271 mg/dL (65-115) H 12/04/21 04:40 Calculated Osmolality 308 mOsm/kg (285-295) H 12/04/21 04:40 Lactic Acid 0.6 mmol/L (0.5-2.2) 12/04/21 04:40 Calcium 7.8 mg/dL (8.5-10.5) L 12/04/21 04:40 Total Bilirubin 0.2 mg/dL (0.15-1.2) 12/04/21 04:40 AST 14 U/L (0-32) 12/04/21 04:40 ALT 16 U/L (0-33) 12/04/21 04:40 Alkaline Phosphatase 168 IU/L (35-105) H 12/04/21 04:40 Troponin T Baseline 51 ng/L (0-10) H 12/04/21 04:40 C-Reactive Protein 4.9 mg/L (0.0-4.9) 12/04/21 04:40 NT-Pro-B Natriuret Pep 4152 pg/mL (0-125) H 12/04/21 04:40 Total Protein 5.8 g/dL (6.6-8.7) L 12/04/21 04:40 Albumin 3.1 g/dL (3.5-5.2) L 12/04/21 04:40 Globulin 2.7 g/dL (1.3-4.6) 12/04/21 04:40 Procalcitonin 0.58 ng/mL (0-0.5) H 12/04/21 04:40 Critical Care Time Critical Care Time: Critical Care Time: Yes Total Critical Care Time: 45 Attestation: This case had a high probability of a clinically significant, sudden, or life threatening deterioration of this patient's condition which required my full and direct attention, intervention and personal management. Time is independent of any procedures performed including intubation and central line placement. Discharge Plan Discharge Patient Disposition: Admitted As Inpatient Clinical Impression: Pulmonary edema Respiratory failure Qualifiers: Chronicity: acute Respiratory failure complication: hypoxia and hypercapnia Ciro lified Code(s): J96.01 - Acute respiratory failure with hypoxia Condition: Stable 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 of Care Code ED Senior Java Web Developer for Bubba Fwjossy Exam Comprehensive
[2021-12-04 06:02] LABS: Troponin(5th) Baseline 51 ng/L (0-10)
[2021-12-04 06:15] LABS: ABG PCO2 59.8 mmHg (35-45); ABG PH Result 7.25 (7.35-7.45); Arterial Blood Gas Hematocrit 32.2 % (37-47); Base Excess ABG -1.6 mmol/L (-2.0-2.0); Blood Gas Allen Test Pos; Blood Gas Sample Site Radial, right; Blood Gas Sample Type Arterial; Carboxyhemoglobin 0.8 %THgb (0.4-20.1); HCO3 ABG 26.3 mmol/L (22-26); HGB O2 Sat 95.7 % (95-100); Methemoglobin 0.2 % (0.4-1.5); Oxygen Device VENT; PO2 ABG 93.6 mmHg (80.0-100.0); Total Hemoglobin 10.5 g/dL (12-16)
[2021-12-04] MEDS: FUROsemide 10 mg/mL SDV 10mL 60 MG IVP (06:19)
--- NOTE | 2021-12-04 06:35 | PC.NURSE ---
0450- patient transported to room 10 for intubation . dandy on NRB @ 15 NC. patinet spo2 92% . provider at bedside.
[2021-12-04 07:05] LABS: Troponin 5 2HR 56.39 ng/L (0-10)
--- NOTE | 2021-12-04 07:05 | NUR.SHIFT ---
Report received from Clint REINA. While at bedside patient is in bed supine with eyes closed. Patient is on continuous SPO2 NIBP and cardiac monitoring. Assumed care.
[2021-12-04 07:07] LABS: Troponin 5 2HR Delta 5.39 ABS# (0-10)
--- NOTE | 2021-12-04 07:28 | PM.HP ---
Providers/Chief Complaint Chief Complaint: SOB History of Present Illness Mariana Ace is a 41 year old female Medications/Allergies Home Medications Medication Instructions Recorded Confirmed Last Taken Type acetaminophen 325 mg capsule 325 mg PO Q6H PRN 07/03/19 08/16/21 Unknown History gabapentin 100 mg capsule 100 mg PO TID 07/03/19 08/16/21 08/16/21 History metoprolol tartrate 25 mg tablet 12.5 mg PO BID 07/03/19 08/16/21 08/16/21 History ondansetron HCl 4 mg tablet 4 mg PO Q8H PRN 07/03/19 08/16/21 Unknown History pantoprazole 40 mg tablet,delayed 40 mg PO QAM 07/03/19 08/16/21 08/16/21 History release paroxetine HCl 20 mg tablet (Paxil) 20 mg PO QAM 07/03/19 08/16/21 08/16/21 History propylene glycol 0.6 % eye drops 1 drop OPHTHALMIC (EYE) BID PRN 07/03/19 08/16/21 Unknown History (Systane Balance) mirtazapine 15 mg tablet 7.5 mg PO BEDTIME #30 tab 07/24/21 08/16/21 08/15/21 Rx multivitamin with folic acid 400 1 tab PO DAILY #30 tab 07/24/21 08/16/21 08/16/21 Rx mcg tablet (Thera) insulin aspart U-100 100 unit/mL See Rx Instructions .ROUTE .COMPLEX 08/16/21 08/16/21 Unknown History (3 mL) subcutaneous pen (Novolog Flexpen U-100 Insulin aspart) insulin glargine 100 unit/mL 16 unit SUBCUT DAILY 08/16/21 08/16/21 08/16/21 History subcutaneous solution (Lantus U-100 Insulin) magnesium hydroxide 400 mg/5 mL 30 ml PO DAILY PRN 08/16/21 08/16/21 Unknown History oral suspension (Milk of Magnesia) polyethylene glycol 3350 17 17 g PO DAILY PRN 08/16/21 08/16/21 Unknown History gram/dose oral powder (Miralax) sennosides 8.6 mg-docusate sodium 1 tab-cap PO BID PRN 08/16/21 08/16/21 Unknown History 50 mg tablet (Senna-S) amoxicillin 875 mg-potassium 1 tab PO BID #8 tab 08/23/21 Unknown Rx clavulanate 125 mg tablet aspirin 81 mg tablet,delayed 81 mg PO DAILY #90 tab 08/23/21 Unknown Rx release (Adult Aspirin Regimen) atorvastatin 80 mg tablet 80 mg PO DAILY #90 tab 08/23/21 Unknown Rx bumetanide 1 mg tablet 1 mg PO DAILY #60 tab 08/23/21 Unknown Rx clopidogrel 75 mg tablet 75 mg PO DAILY #21 tab 08/23/21 Unknown Rx doxycycline monohydrate 100 mg 100 mg PO BID #8 tab 08/23/21 Unknown Rx tablet guaifenesin 600 mg tablet, 1,200 mg PO BID #20 tab 08/23/21 Unknown Rx extended release 12 hr (Mucinex) Allergies Allergy/AdvReac Type Severity Reaction Status Date / Time sulfamethoxazole Allergy Rash, Verified 06/26/21 15:28 [From Bactrim] wheezing trimethoprim [From Bactrim] Allergy Rash, Verified 06/26/21 15:28 wheezing PFSH Acute PFSH: Medical History Adult failure to thrive Aftercare following surgery of the genitourinary system Patient is a status post diagnostic laparoscopy with lysis of adhesions and appendectomy 2 weeks ago. No complications. Patient was counseled regarding pathology report showing acute appendicitis. Follow-up in 4 weeks Breast lump on right side at 9 o'clock position C. difficile colitis Decubitus ulcers Generalized weakness MRSA (methicillin resistant staph aureus) culture positive Patient denies medical problems Perinephric abscess History of perinephric and retroperitoneal abscess with yeast in 2018, required percutaneous drainage and had complicated hospital course with respiratory failure, gram-negative pneumonia, thoracentesis, BiPAP therapy requirement, intolerance of oral intake, PEG tube placement, intolerance of tube feeds Secondary amenorrhea 39-year-old female with secondary amenorrhea. Progestin challenge test described Patient referred to the progestin challenge test she had a withdrawal bleeding from 05/07/2019 to 05/13/2019. Severe protein-calorie malnutrition Trichotillomania Type 1 diabetes mellitus Surgical History deliv NOS-unsp 1999 History of cholecystectomy 2011 History of tubal ligation 2000 S/P appendectomy S/P laparoscopy 05/20/2019- Diagnostic Laparoscopy, Lysis of Adhesions performed by Dr. Shah at [facility] Appendectomy performed by Dr. Robledo on 05/20/2019 Family History Grandmother Diabetes MATERNAL Cancer paternal Grandfather Heart disease maternal Cancer paternal Family/Other Breast cancer Paternal Aunt Social History Smoking and tobacco status: current every day smoker cigarettes Packs smoked per day: 1 Years cigarettes smoked: 28 Alcohol intake: never Additional social history: Well balanced diet Vitals/I&O/Wt Last Vital Signs Temp 98.4 F 12/04/21 04:28 Pulse 95 12/04/21 06:26 Resp 17 12/04/21 06:26 BP 130/87 12/04/21 06:26 Pulse Ox 100 12/04/21 06:26 12/03/21 12/04/21 12/04/21 22:59 06:59 14:59 Intake Total 3.764 / 3.764 Balance 3.764 / 3.764 Weight last 48 hrs Weight 55.423 kg Physical Exam Urinary Catheter Management: Fall: Cath Placed During This Visit: yes Reason for Continuing Indwelling Catheter: Accurate Measurement of Urinary Output in Critically Ill Patients Urinary Catheter Date of Insertion: 12/04/21 Urinary Catheter Time of Insertion: 05:00 Data : 12/04/21 04:40 12/04/21 04:40 Micro: Microbiology 12/04/21 04:40 Blood Culture - Preliminary Blood SPECIMEN COLLECTED 12/04/21 04:40 Blood Culture - Preliminary Blood SPECIMEN COLLECTED 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 of Care Code Acute Judicial Administrative Assistant for Bubba Gates
--- NOTE | 2021-12-04 07:41 | PC.NURSE ---
While at bedside with Dr. Oro patient was aroused via verbal stimuli. Increase sedation RT at bedside performing ABG.
--- NOTE | 2021-12-04 07:43 | P.HP_ITS ---
Providers/Chief Complaint Chief Complaint: SOB History of Present Illness Mariana Ace is a 41 year old female that [facility] with increasing shortness of breath. In the emergency department here she was intubated secondary to respiratory failure, as she presented on 12 L with a saturation of 90% only able to answer yes or no questions. In the emergency department she received 60 mg of Lasix IV, and meds for rapid sequence intubation. According to nursing facility nurses she has been sick to 2 to 3 days with shortness of breath. She had required oxygen. She has had no recent choking, fever, or coughing. She does not usually aspirate. Typically she does ADLs on her own, but has difficulty walking although she has been doing it with therapy. Blood sugars recently have been okay. Her last hospital stay she was treated for pneumonia and also found to have a cerebellar CVA and occlusion of right vertebral artery Review of Systems General: Reports: ROS unobtainable due to endotracheal tube Medications/Allergies Home Medications Medication Instructions Recorded Confirmed Last Taken Type acetaminophen 325 mg capsule 325 mg PO Q6H PRN 07/03/19 08/16/21 Unknown History gabapentin 100 mg capsule 100 mg PO TID 07/03/19 08/16/21 08/16/21 History metoprolol tartrate 25 mg tablet 12.5 mg PO BID 07/03/19 08/16/21 08/16/21 History ondansetron HCl 4 mg tablet 4 mg PO Q8H PRN 07/03/19 08/16/21 Unknown History pantoprazole 40 mg tablet,delayed 40 mg PO QAM 07/03/19 08/16/21 08/16/21 History release paroxetine HCl 20 mg tablet (Paxil) 20 mg PO QAM 07/03/19 08/16/21 08/16/21 History propylene glycol 0.6 % eye drops 1 drop OPHTHALMIC (EYE) BID PRN 07/03/19 08/16/21 Unknown History (Systane Balance) mirtazapine 15 mg tablet 7.5 mg PO BEDTIME #30 tab 07/24/21 08/16/21 08/15/21 Rx multivitamin with folic acid 400 1 tab PO DAILY #30 tab 07/24/21 08/16/21 08/16/21 Rx mcg tablet (Thera) insulin aspart U-100 100 unit/mL See Rx Instructions .ROUTE .COMPLEX 08/16/21 08/16/21 Unknown History (3 mL) subcutaneous pen (Novolog Flexpen U-100 Insulin aspart) insulin glargine 100 unit/mL 16 unit SUBCUT DAILY 08/16/21 08/16/21 08/16/21 History subcutaneous solution (Lantus U-100 Insulin) magnesium hydroxide 400 mg/5 mL 30 ml PO DAILY PRN 08/16/21 08/16/21 Unknown History oral suspension (Milk of Magnesia) polyethylene glycol 3350 17 17 g PO DAILY PRN 08/16/21 08/16/21 Unknown History gram/dose oral powder (Miralax) sennosides 8.6 mg-docusate sodium 1 tab-cap PO BID PRN 08/16/21 08/16/21 Unknown History 50 mg tablet (Senna-S) amoxicillin 875 mg-potassium 1 tab PO BID #8 tab 08/23/21 Unknown Rx clavulanate 125 mg tablet aspirin 81 mg tablet,delayed 81 mg PO DAILY #90 tab 08/23/21 Unknown Rx release (Adult Aspirin Regimen) atorvastatin 80 mg tablet 80 mg PO DAILY #90 tab 08/23/21 Unknown Rx bumetanide 1 mg tablet 1 mg PO DAILY #60 tab 08/23/21 Unknown Rx clopidogrel 75 mg tablet 75 mg PO DAILY #21 tab 08/23/21 Unknown Rx doxycycline monohydrate 100 mg 100 mg PO BID #8 tab 08/23/21 Unknown Rx tablet guaifenesin 600 mg tablet, 1,200 mg PO BID #20 tab 08/23/21 Unknown Rx extended release 12 hr (Mucinex) Allergies Allergy/AdvReac Type Severity Reaction Status Date / Time sulfamethoxazole Allergy Rash, Verified 06/26/21 15:28 [From Bactrim] wheezing trimethoprim [From Bactrim] Allergy Rash, Verified 06/26/21 15:28 wheezing PFSH Acute PFSH: Medical History (Updated 12/04/21 @ 08:06 by Ab Oro MD) Adult failure to thrive Aftercare following surgery of the genitourinary system Patient is a status post diagnostic laparoscopy with lysis of adhesions and appendectomy 2 weeks ago. No complications. Patient was counseled regarding pathology report showing acute appendicitis. Follow-up in 4 weeks Anemia Breast lump on right side at 9 o'clock position C. difficile colitis Cerebellar cerebrovascular accident (CVA) without late effect Chronic kidney disease Decubitus ulcers Generalized weakness MRSA (methicillin resistant staph aureus) culture positive Patient denies medical problems Perinephric abscess History of perinephric and retroperitoneal abscess with yeast in 2018, required percutaneous drainage and had complicated hospital course with respiratory failure, gram-negative pneumonia, thoracentesis, BiPAP therapy requirement, intolerance of oral intake, PEG tube placement, intolerance of tube feeds Secondary amenorrhea 39-year-old female with secondary amenorrhea. Progestin challenge test described Patient referred to the progestin challenge test she had a withdrawal bleeding from 05/07/2019 to 05/13/2019. Severe protein-calorie malnutrition Trichotillomania Type 1 diabetes mellitus Surgical History deliv NOS-unsp 1999 History of cholecystectomy 2011 History of tubal ligation 2000 S/P appendectomy S/P laparoscopy 05/20/2019- Diagnostic Laparoscopy, Lysis of Adhesions performed by Dr. Shah at [facility] Appendectomy performed by Dr. Robledo on 05/20/2019 Family History Grandmother Diabetes MATERNAL Cancer paternal Grandfather Heart disease maternal Cancer paternal Family/Other Breast cancer Paternal Aunt Social History Smoking and tobacco status: current every day smoker cigarettes Packs smoked per day: 1 Years cigarettes smoked: 28 Alcohol intake: never Additional social history: Well balanced diet Vitals/I&O/Wt Last Vital Signs Temp 98.4 F 12/04/21 04:28 Pulse 95 12/04/21 06:26 Resp 18 12/04/21 07:37 BP 130/87 12/04/21 06:26 Pulse Ox 100 12/04/21 06:26 12/03/21 12/04/21 12/04/21 22:59 06:59 14:59 Intake Total 3.764 / 3.764 Balance 3.764 / 3.764 Weight last 48 hrs Weight 55.423 kg Physical Exam Narrative: General exam is a sleepy white female intubated and on sedative medicines. With stimulation she will open her eyes and follow some directions. HEENT: Pupils equally round. Oropharynx is clear. Neck is supple no lymphadenopathy or thyromegaly Cardiovascular regular rate and rhythm without murmur Lungs coarse breath sounds bilaterally. No wheezing. Abdomen soft positive bowel sounds. No obvious organomegaly exam is deferred Extremities no cyanosis clubbing or edema, cap refill brisk Skin no rash Neuro no obvious focal deficits. Urinary Catheter Management: Fall: Cath Placed During This Visit: yes Reason for Continuing Indwelling Catheter: Accurate Measurement of Urinary Output in Critically Ill Patients Urinary Catheter Date of Insertion: 12/04/21 Urinary Catheter Time of Insertion: 05:00 Data : 12/04/21 04:40 12/04/21 04:40 Other Labs: EKG demonstrates sinus tachycardia, normal axis. Repeat EKG after intervention demonstrates sinus rhythm with a rate of 94, normal axis, no acute changes other than possible left atrial enlargement. Previous echocardiogram demonstrated EF of 55 to 60%, normal diastolic function, mild mitral regurgitation in August 2021 Previous MRSA PCR positive in August Blood cultures were drawn ABG presumably right after intubation demonstrated a pH of 7.25, PCO2 of 60, PO2 of 94 Anion gap of 12.4 Calcium 7.8 Alk phos 168 Troponin 51 with repeat of 56 BNP of 4152 Albumin 3.1 Procalcitonin 0.58 Coronavirus is pending Chest x-ray demonstrates tubes, appropriate position. Small bilateral effusions and consolidation left lung Micro: Microbiology 12/04/21 04:40 Blood Culture - Preliminary Blood SPECIMEN COLLECTED 12/04/21 04:40 Blood Culture - Preliminary Blood SPECIMEN COLLECTED A&P Assessment and plan (1) Acute respiratory failure with hypoxia and hypercapnia: Significant acute respiratory failure on presentation. Some evidence for pulmonary edema, as well as pneumonia. She also presented with tachycardia and is severely immobile. Therefore in addition to work-up already occurring will check D-dimer. Currently on SIMV, FiO2 100% which is being weaned with a tidal volume of 400 and PEEP of 5. I believe her settings can be weaned rather quickly. Sedation with fentanyl, Versed, propofol Status: Acute (2) Pneumonia: Evidence of pneumonia left lower lung. Procalcitonin and white blood cell count are elevated. Initiate vancomycin and Zosyn. Check sputum culture. Check MRSA PCR although I expect this to be positive as it was last hospitalization 4 months ago. Status: Acute (3) Pulmonary edema: She received Lasix IV in the emergency department, 60 mg. This was at 550 in the morning. Monitor I's and O's. Repeat BMP in the evening. Check limited echo After stabilization, extubation, consider nuclear stress testing. Status: Acute (4) Anemia: Mild anemia. Continue to monitor. Status: Acute (5) Chronic kidney disease: Evidence of chronic kidney disease Check urinalysis Status: Acute (6) Hyperkalemia: Mild hyperkalemia Repeat BMP later this afternoon Status: Acute (7) Elevated troponin: Check limited echo Trend troponins Needs nuclear stress test when stabilized Status: Acute (8) Cerebellar cerebrovascular accident (CVA) without late effect: Previous hospital stay included evaluation and treatment for cerebellar CVA. She is currently on Plavix, aspirin and statin. We will continue. Status: Acute (9) Type 1 diabetes mellitus: D5 half-normal saline, low-dose to try to prevent significant fluid overload. Sliding scale insulin, low-dose Long-acting insulin, Lantus low-dose No evidence of DKA currently. Anion gap normal. Status: Acute Qualifiers: Diabetes mellitus complication status: with hyperglycemia Qualified Code(s): E10.65 - Type 1 diabetes mellitus with hyperglycemia (10) Generalized weakness: Will warrant physical therapy after stabilized Status: Acute Plan Multiple other medical problems as outlined by past medical history Heparin for DVT prophylaxis Protonix for GI prophylaxis Full code currently Attestations Medical Necessity Statement*: Will need greater than 2 midnight stay for respiratory failure requiring mechanical ventilation and above problems. Critical Care Time: The high probability of a clinically significant, sudden or life threatening deterioration of the patient's [pulmonary, cardiac, renal, hematologic system(s) required my full and direct attention, intervention and personal management. The critical care time is as shown. 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
--- NOTE | 2021-12-04 07:46 | ECG_ITS ---
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 Measurements Intervals [place] Rate: 94 P: 73 ME: 160 QRS: 64 QRSD: 72 T: 89 QT: 344 QTc: 432 Interpretive Statements SINUS RHYTHM POSSIBLE LEFT ATRIAL ENLARGEMENT [-0.1mV P-WAVE IN V1/V2] Compared to ECG 12/04/2021 04:35:04 Sinus tachycardia no longer present Electronically Signed On 12-04-2021 16:33:34 CDT by Flavio Cooper M.D. [id number]
--- NOTE | 2021-12-04 07:49 | PC.NURSE ---
Sedation medications titrated from Dr. Oro's verbal order.
--- NOTE | 2021-12-04 08:07 | USCV_ITS ---
Mariana Ace Age: 41 Gender: F : 1980 Exam Date: 12/04/2021 08:20 Ordering Phys: Ab Oro MD Technologist: Nallely Carrion Exam Location: [facility] [place] Indication: Pulmonary Edema BP: / HR: 91 Rhythm: Sinus Technical Quality: Technically difficult study MEASUREMENTS (Male / Female) Normal Values 2D ECHO LV Diastolic Diameter PLAX 4.0 cm 4.2 - 5.9 / 3.9 - 5.3 cm LV Systolic Diameter PLAX 2.4 cm LV Chamber Size 2.3 cm IVS Diastolic Thickness 0.9 cm 0.6 - 1.0 / 0.6 - 0.9 cm IVS Systolic Thickness 1.5 cm LVPW Diastolic Thickness 1.3 cm 0.6 - 1.0 / 0.6 - 0.9 cm LVPW Systolic Thickness 1.6 cm RV Chamber Size 2.0 cm LVOT Diameter 2.1 cm LV Ejection Fraction 2D Teich 71.4 % LA Diameter 2.6 cm LA Width 2.9 cm LA Height 2.6 cm RA Width 2.5 cm RA Height 3.0 cm Aorta at Sinotubular Diameter 2.5 cm IVC Diameter 2.0 cm M-MODE Aortic Annulus Diameter 2.7 cm LA Ao Ratio MM 1.1 MV E Point Septal Separation 0.3 cm DOPPLER TR Peak Velocity 117.3 cm/s TR Peak Gradient 5.5 mmHg TR Mean Velocity 77.6 cm/s TR Mean Gradient 2.8 mmHg TR Velocity Time Integral 21.7 cm TV Peak E Velocity 43.0 cm/s PV Peak Velocity 67.0 cm/s RV Acceleration Time 0.1 s RV Ejection Time 0.3 s RV AcT/ET 0.5 FINDINGS Left Ventricle Normal left ventricular size. LV systolic function is grossly normal. Regional wall motion abnormalities cannot be assessed because of limited visualization Right Ventricle The right ventricle is normal in size and function. Right Atrium Not well-visualized Left Atrium The left atrium is normal in size. Mitral Valve Grossly normal Aortic Valve Grossly normal Tricuspid Valve Not well-visualized Pulmonic Valve Not well-visualized Pericardium Small pericardial effusion Aorta Normal ascending aorta dimension. IVC CONCLUSIONS This is a limited quality echocardiogram because of poor ultrasonic windows LV systolic function is grossly normal. Regional wall motion abnormalities cannot be assessed because of limited visualization. Valvular structures are not well visualized however grossly normal. Accuarate comparison with prior echocardiogram from 08/2021 not possible because of limited quality of current study Mustapha Stearns MD (Electronically Signed) Final Date: 04 December 2021 12:41 S
[2021-12-04 08:22] LABS: Magnesium 2.3 mg/dL (1.7-2.3)
--- NOTE | 2021-12-04 08:22 | PC.NURSE ---
Notified lab of need of blood draw.
[2021-12-04 08:27] LABS: ABG PCO2 34.5 mmHg (35-45); ABG PH Result 7.48 (7.35-7.45); Arterial Blood Gas Hematocrit 30.3 % (37-47); Base Excess ABG 2.1 mmol/L (-2.0-2.0); Blood Gas Operator Identificat AMH; Blood Gas Sample Site Brachial, right; Blood Gas Sample Type Arterial; Carboxyhemoglobin 0.4 %THgb (0.4-20.1); HCO3 ABG 25.5 mmol/L (22-26); HGB O2 Sat 99.2 % (95-100); Ionized Calcium Level - ABG 1.2 mmol/L (1.1-1.4); Methemoglobin 0.9 % (0.4-1.5); Oxygen Device VENT; Oxygen Saturation ABG > 100.0; Potassium Level - ABG 5.4 mmol/L (3.5-5.0); Total Hemoglobin 9.9 g/dL (12-16)
[2021-12-04 08:30] LABS: Adenovirus Not Detected (NOT DETECT); Chlamydia Pneumoniae Not Detected (NOT DETECT); Coronavirus 229E,HKU1,NL63,OC4 Not Detected (NOT DETECT); Human Metapneumovirus Not Detected (NOT DETECT); Human Rhinovirus/Enterovirus Not Detected (NOT DETECT); Influenza A Not Detected (NOT DETECT); Influenza A H1 Not Detected (NOT DETECT); Influenza A H1-2009 Not Detected (NOT DETECT); Influenza A H3 Not Detected (NOT DETECT); Influenza B Not Detected (NOT DETECT); Mycoplasma Pneumoniae Not Detected (NOT DETECT); Parainfluenza Virus Type 1 Not Detected (NOT DETECT); Parainfluenza Virus Type 2 Not Detected (NOT DETECT); Parainfluenza Virus Type 3 Not Detected (NOT DETECT); Parainfluenza Virus Type 4 Not Detected (NOT DETECT); Respiratory Syncytial Virus A Not Detected (NOT DETECT); Respiratory Syncytial Virus B Not Detected (NOT DETECT); SARS-COV-2 Not Detected (NOT DETECT)
[2021-12-04 08:45] LABS: Glucose Urine UA 2+ (Normal); Protein Urine 3+ (Negative); Urine Appearance Clear (CLEAR); Urine Color Yellow (Yellow); pH Urine 5 (5-7)
[2021-12-04 08:46] LABS: Bilirubin Urine Neg (Negative); Blood Urine Neg (Negative); Ketones Urine Negative (Negative); Leukocyte Esterase Urine Negative (Negative); Nitrate Urine Negative (Negative); Urobilinogen Urine Norm (Negative)
[2021-12-04 08:47] LABS: Bacteria Urine 1+ /hpf; RBC Urine 0-4 /hpf (0-2); WBC Urine 0-4 /hpf (0-5)
[2021-12-04 08:48] LABS: Mucus Urine TRACE /hpf
[2021-12-04 08:49] LABS: Add Urine Culture? No; Coarse Granular Casts Urine 0-4 /lpf; Hyaline Casts Urine 0-4 /lpf
[2021-12-04] MEDS: vancomycin 750 MG in sodium chloride 0.9% 250 ML 250 MG IV (08:50)
--- NOTE | 2021-12-04 08:50 | PC.NURSE ---
While at bedside patient is resting quietly supine with eyes closed in bed.
[2021-12-04 09:19] LABS: D Dimer 2.91 ug/mIFEU (0-0.59)
--- NOTE | 2021-12-04 09:47 | CT_ITS ---
WS: [id number] CTA OF THE CHEST WITH PULMONARY EMBOLISM PROTOCOL TECHNIQUE: High-resolution contrast enhanced CTA of the chest with coronal and sagittal reformatted i mages with pulmonary embolism protocol. MIP images are also reviewed. CLINICAL INFORMATION: elevated dimer COMPARISON: August 16, 2021 DLP: 453.[address] scans at [facility] use at least one of these dose optimization techniques: automated e xposure control; mA and/or kV adjustment per patient size (includes targeted exams where dose is matc hed to clinical indication); or iterative reconstruction. FINDINGS: Normal caliber thoracic aorta. Proximal main pulmonary arteries are normal. Normal segmental and subs egmental pulmonary arteries. No evidence of pulmonary embolus. Enteric tube with tip in the stomach. Endotracheal tube with tip above the lavon. Small RIGHT greate r than LEFT pleural effusions with compressive atelectasis in the lung bases. Slight patchy hazy atel ectasis with groundglass infiltrates in both lungs. Mild perihilar bronchovascular thickening. A few prominent anterior mediastinal and perihilar lymph nodes likely reactive. CT/CT angio chest PE protcl [id number] IMPRESSION: 1. No evidence of pulmonary embolus. 2. Small RIGHT greater than LEFT pleural effusions with compressive atelectasi s in the lung bases. 3. Mild hazy groundglass infiltrates with interlobular septal thickening. Some of this likely due to pulmonary edema. 4. Hazy groundglass infiltrates in a perihilar distribution. Recommend correl ation for pneumonia. 5. Endotracheal tube with tip above the lavon. Enteric tube with tip in the s tomach.
--- NOTE | 2021-12-04 09:47 | USCV_ITS ---
Ace Mariana Age: 41 Gender: F : 1980 Exam Date: 12/04/2021 13:43 Ordering Phys: Ab Oro MD Technologist: Nallely Carrion [place] [facility] [place]: Pneumonia and now on Vent HISTORY: Pneumonia and now on Vent PROCEDURES: The venous duplex Doppler examination of both lower extremities was performed in the standard fashion. The following venous structures were evaluated: common femoral vein, profunda vein, proximal portion of the greater saphenous vein, superficial femoral vein, and the popliteal vein. In addition, the posterior tibial and peroneal trunk were evaluated. Serial compression, augmentation maneuvers, and spectral Doppler flow evaluation were performed. FINDINGS: Normal 2-D Doppler and augmentation and compressibility throughout the lower extremity venous structures. Additional imaging through the proximal calf veins also reveals no thrombus. Limited evaluation of the greater saphenous vein is patent with no thrombus. CONCLUSIONS No DVT bilateral lower extremities. Dr. Sanjuana Carrillo DO (Electronically Signed) Final Date: 04 December 2021 15:33 S
[2021-12-04] MEDS: piperacillin-tazobactam 3.375 GM in sodium chloride 0.9% (plus) 50 ML IV ×2 (09:52→18:18)
[2021-12-04] MEDS: iohexol 300 mg/mL 100 mL Btl IV (10:26)
--- NOTE | 2021-12-04 10:26 | PC.PHAR ---
pt is from [facility] [phone] cyndi nurse at [facility] states the pt had no medications today
[2021-12-04 11:12] LABS: Glucose Point of Care 205 mg/dL (70-110)
[2021-12-04] MEDS: clopidogrel 75 mg Tablet PO (11:13)
[2021-12-04] MEDS: aspirin 81 mg EC Tablet PO (11:13)
[2021-12-04] MEDS: atorvastatin 40 mg Tablet 80 MG PO (11:13)
[2021-12-04] MEDS: metoprolol tartrate 25 mg Tablet 12.5 MG PO ×2 (11:13→21:51)
[2021-12-04] MEDS: pantoprazole 40 mg SDV IVP (11:14)
[2021-12-04] MEDS: dextrose 5%-sod chloride 0.9% 1,000 ML 30 ML IV (11:14)
[2021-12-04] MEDS: insulin lispro 100 unit/1 mL SUBCUT (11:30)
[2021-12-04 11:36] LABS: Troponin 5 6HR 62.85 ng/L (0-10)
[2021-12-04 11:39] LABS: Troponin 5 6HR Delta 11.85 ng/L (0-12)
--- NOTE | 2021-12-04 11:44 | PC.NURSE ---
unable to assess
--- NOTE | 2021-12-04 11:46 | ECG_ITS ---
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 Measurements Intervals [place] Rate: 81 P: 49 IN: 172 QRS: 65 QRSD: 84 T: 89 QT: 410 QTc: 476 Interpretive Statements SINUS RHYTHM POSSIBLE LEFT ATRIAL ENLARGEMENT [-0.1mV P-WAVE IN V1/V2] POSSIBLE RIGHT VENTRICULAR CONDUCTION DELAY [RSR (QR) IN V1/V2] Compared to ECG 12/04/2021 07:42:09 No significant changes Electronically Signed On 12-04-2021 16:34:29 CDT by Flavio Cooper M.D. [id number]
[2021-12-04 13:58] LABS: ABG PCO2 37.2 mmHg (35-45); ABG PH Result 7.46 (7.35-7.45); Alveolar-Arterial Oxygen Gradi 11.3 mmHg (5-10); Arterial Blood Gas Hematocrit 29.4 % (37-47); Base Excess ABG 2.8 mmol/L (-2.0-2.0); Blood Gas Operator Identificat GD; Blood Gas Sample Site Brachial, left; Blood Gas Sample Type Arterial; Carboxyhemoglobin 0.7 %THgb (0.4-20.1); HCO3 ABG 26.7 mmol/L (22-26); HGB O2 Sat 95.6 % (95-100); Ionized Calcium Level - ABG 1.2 mmol/L (1.1-1.4); Methemoglobin 0.8 % (0.4-1.5); Oxygen Device VENT; Oxygen Saturation ABG 97.1; PO2 ABG 78.2 mmHg (80.0-100.0); Potassium Level - ABG 4.2 mmol/L (3.5-5.0); Total Hemoglobin 9.6 g/dL (12-16)
[2021-12-04] MEDS: heparin 5,000 unit/mL INJ 1 mL 5000 UNIT SUBCUT (14:21)
[2021-12-04] MEDS: ipratropium-albuterol 3 mL Neb INHALATION ×2 (15:01→20:11)
[2021-12-04] MEDS: dextrose 50% syringe 50 mL 25 ML IVP (15:31)
--- NOTE | 2021-12-04 15:40 | PC.NURSE ---
pts bg 59. d50 given, dr waters notified, changed pts iv fluids to d10w and decreased her sliding scale by 2 units per his order.
[2021-12-04] MEDS: dextrose 10% 1,000 ML 30 ML IV (15:43)
[2021-12-04 17:00] LABS: Blood Urea Nitrogen 43 mg/dL (6-20); Carbon Dioxide 22 mmol/L (22-29); Chloride 104 mmol/L (98-107); Glomerular Filtration Rate 38.5 mL/min (90-130); Glucose 123 mg/dL (65-115); Osmolality Calculated 300 mOsm/kg (285-295); Sodium 139 mmol/L (136-145)
[2021-12-04] MEDS: propofol 1,000 MG/100 ML INJ 3.33 MG IV (18:18)
[2021-12-04] MEDS: insulin glargine 100 units/1 mL 10 UNIT SUBCUT (21:51)
[2021-12-04 21:53] LABS: Glucose Point of Care 184 mg/dL (70-110)
[2021-12-04 22:03] LABS: Glucose Point of Care 133 mg/dL (70-110)
[2021-12-04 22:03] LABS: Glucose Point of Care 59 mg/dL (70-110)
[2021-12-05] VITALS (53 sets, daily range): BP systolic 80–136; BP diastolic 46–80; PULSE 80–136; RESP 10–31; TEMP 36.6–37.3; O2SAT 89–97
[2021-12-05] MEDS: piperacillin-tazobactam 3.375 GM in sodium chloride 0.9% (plus) 50 ML IV ×3 (01:59→17:52)
[2021-12-05] MEDS: heparin 5,000 unit/mL INJ 1 mL 5000 UNIT SUBCUT ×2 (01:59→12:49)
[2021-12-05] MEDS: ipratropium-albuterol 3 mL Neb INHALATION ×4 (02:13→20:08)
[2021-12-05] MEDS: vancomycin 750 MG in sodium chloride 0.9% 250 ML 250 MG IV (03:06)
[2021-12-05 04:10] LABS: Basophils % 0.3 %; Eosinophils # 0.1 10^3/uL (0.0-0.8); Eosinophils % 0.7 %; Hematocrit 26.8 % (37.0-47.0); Hemoglobin 8.5 g/dL (11.5-15.3); Lymphocytes % 27.4 %; Mean Corpuscular HGB Conc 31.7 g/dL (30.0-36.0); Mean Corpuscular Hemoglobin 27.7 pg (28.0-34.0); Mean Corpuscular Volume 87.3 fl (81-99); Mean Platelet Volume 10.4 fL (7.4-10.4); Monocytes # 0.7 10^3/uL (0.2-0.9); Monocytes % 10.2 %; Neutrophils # 4.39 10^3/uL (1.8-7.7); Neutrophils % 61.1 %; Nucleated Red Blood Cells % 0 %; Platelet Count 180 10^3/cmm (130-400); Red Blood Count 3.07 10^6/uL (4.1-5.3); Red Cell Distribution Width 14.5 % (12.1-15.1); White Blood Count 7.2 10^3/uL (4.0-10.0)
[2021-12-05 04:35] LABS: Alanine Aminotransferase 13 U/L (0-33); Albumin Level 2.7 g/dL (3.5-5.2); Alkaline Phosphatase 128 IU/L (35-105); Anion Gap 14.8 (5-19); Aspartate Amino Transferase 12 U/L (0-32); Blood Urea Nitrogen 42 mg/dL (6-20); Calcium 8.1 mg/dL (8.5-10.5); Carbon Dioxide 23 mmol/L (22-29); Chloride 104 mmol/L (98-107); Globulin 2.1 g/dL (1.3-4.6); Glomerular Filtration Rate 31.2 mL/min (90-130); Glucose 194 mg/dL (65-115); Magnesium 2.2 mg/dL (1.7-2.3); Osmolality Calculated 302 mOsm/kg (285-295); Potassium 3.8 mmol/L (3.5-5.1); Sodium 138 mmol/L (136-145); Total Bilirubin 0.2 mg/dL (0.15-1.2); Total Protein 4.8 g/dL (6.6-8.7)
[2021-12-05 05:27] LABS: ABG PCO2 42.2 mmHg (35-45); ABG PH Result 7.36 (7.35-7.45); Arterial Blood Gas Hematocrit 27.2 % (37-47); Base Excess ABG -1.8 mmol/L (-2.0-2.0); Blood Gas Allen Test Pos; Blood Gas Sample Site Radial, right; Blood Gas Sample Type Arterial; HCO3 ABG 23.6 mmol/L (22-26); Oxygen Device VENT; PO2 ABG 57.8 mmHg (80.0-100.0)
[2021-12-05 05:31] LABS: Bacillus cereus group Not Detected (NOT DETECT); Bacillus subtillis group Not Detected (NOT DETECT); Corynebacterium Not Detected (NOT DETECT); Cutibacterium acnes (P.acnes) Not Detected (NOT DETECT); Enterococcus Not Detected (NOT DETECT); Enterococcus faecalis Not Detected (NOT DETECT); Enterococcus faecium Not Detected (NOT DETECT); Lactobacillus species Not Detected (NOT DETECT); Listeria Not Detected (NOT DETECT); Listeria monocytogenes Not Detected (NOT DETECT); Micrococcus Not Detected (NOT DETECT); Pan Candida Not Detected (NOT DETECT); Pan Gram-Negative Not Detected (NOT DETECT); Staphylococcus epidermidis Detected (NOT DETECT); Staphylococcus lugdunensis Not Detected (NOT DETECT); Staphylococcus species Detected (NOT DETECT); Streptococcus agalactiae Not Detected (NOT DETECT); Streptococcus anginosus group Not Detected (NOT DETECT); Streptococcus pneumoniae Not Detected (NOT DETECT); Streptococcus pyogenes Not Detected (NOT DETECT); Streptococcus species Not Detected (NOT DETECT); mecA Detected (NOT DETECT); mecC Not Detected (NOT DETECT)
[2021-12-05] MEDS: PARoxetine 20 mg Tablet PO (06:04)
[2021-12-05 06:20] LABS: Glucose Point of Care 236 mg/dL (70-110)
--- NOTE | 2021-12-05 07:00 | XRR_ITS ---
PROCEDURE INFORMATION: Exam: XR Chest Exam date and time: 12/05/2021 7:06 AM Age: 41 years old Clinical indication: Condition or disease; Lung condition and disease; Respiratory failure; Status not specified; Additional info: Follow up resp failure TECHNIQUE: Imaging protocol: XR of the chest. Views: 1 view. COMPARISON: CR (CHEST, ) 12/04/2021 5:38 AM FINDINGS: Tubes, catheters and devices: Left IJ approach central line is in satisfactory position, with distal tip in the RA. Endotracheal tube is in satisfactory position. Feeding tube is in satisfactory position. Lungs: There is mildly increased lung markings, haziness of the lungs and small bilateral pleural effusions, which in the setting of cardiomegaly is consistent with pulmonary edema. Pneumonia should be excluded clinically. No pneumothorax. Pleural spaces: See Lungs finding. Heart/Mediastinum: Stable cardiomediastinal silhouette. Bones/joints: Unremarkable. XR/XR chest 1V portable [id number] IMPRESSION: Imaging findings of pulmonary edema with small bilateral pleural effusions. Pneumonia should be excluded clinically.
--- NOTE | 2021-12-05 07:37 | PC.NURSE ---
received report, reviewed poc, assumed care of patient. Dr. Oro at bedside, calling rt to assess for extubation parameters. pt awake, no c/o pain
--- NOTE | 2021-12-05 08:53 | PM.PN ---
Subjective Subjective: Intubated and sedated but awakens with stimulation. Denies any pain. Indicates she wants the tube out. Medications: Reviewed: Yes Vitals/I&O/Wt Last Vital Signs Temp 98.9 F 12/05/21 05:58 Pulse 112 H 12/05/21 07:42 Resp 10 L 12/05/21 07:42 BP 97/54 12/05/21 02:45 Pulse Ox 94 12/05/21 07:42 12/04/21 12/05/21 12/05/21 22:59 06:59 14:59 Intake Total 396.392 / 812.110 212.243 / 1024.353 250 / 250 Output Total 700 / 700 400 / 1100 Balance -303.608 / 112.110 -187.757 / -75.647 250 / 250 Weight last 48 hrs Weight 61.961 kg Weight 55.423 kg Physical Exam Narrative: General exam is a sleepy white female intubated and sedated but will open her eyes and follow direction when stimulated HEENT: Pupils equally round. Endotracheal tube noted Neck is supple no lymphadenopathy or thyromegaly Cardiovascular regular rate and rhythm without murmur Lungs clear bilaterally Abdomen soft positive bowel sounds. No obvious organomegaly exam is deferred Extremities no cyanosis clubbing or edema, cap refill brisk Skin no rash Neuro no obvious focal deficits. Urinary Catheter Management: Fall: Cath Placed During This Visit: yes Reason for Continuing Indwelling Catheter: Accurate Measurement of Urinary Output in Critically Ill Patients Urinary Catheter Date of Insertion: 12/04/21 Urinary Catheter Time of Insertion: 05:00 Data : 12/05/21 03:36 12/05/21 03:36 Micro: Microbiology 12/04/21 04:40 Blood Culture - Preliminary Blood NEGATIVE TO DATE 12/04/21 04:40 Blood Culture - Preliminary Blood 12/04/21 10:06 Gram Stain - Final Sputum - Endotracheal Tube Aspirate A&P Assessment and plan (1) Acute respiratory failure with hypoxia and hypercapnia: Currently on the ventilator with minimal settings. Hopefully can extubate today. May require BiPAP as she has in the past. CTA performed no evidence of pulmonary embolism. Consistent with pneumonia and bilateral small pleural effusions right greater than left. COVID PCR negative. Status: Acute (2) Pneumonia: Concern of pneumonia on admission. Currently on vancomycin and Zosyn. Changed to linezolid and Zosyn secondary to renal function worsening. Status: Acute (3) Pulmonary edema: Present on admission. Slightly better on chest x-ray today. Diuresis attempted yesterday, and I's and O's not accurate with transition. Overall clinically improved. No evidence of peripheral edema. On minimal ventilator settings. Echocardiogram limited and of poor quality but EF appeared normal. Troponin elevation consistent with type II elevation. Secondary to recurrence with similar presentation in August may warrant cardiac evaluation prior to discharge. Status: Acute (4) Anemia: Chronic. Continue to follow. GI prophylaxis. Status: Acute (5) Chronic kidney disease: Renal function worsens from admission with diuresis. She did have IV contrast for CTA. Renal function currently consistent with acute kidney injury. Check CK Continue Fall Status: Acute (6) Hyperkalemia: Resolved Status: Acute (7) Elevated troponin: Type II elevation Status: Acute (8) Cerebellar cerebrovascular accident (CVA) without late effect: Past history of CVA. Continue Plavix, aspirin, statin Status: Acute (9) Type 1 diabetes mellitus: Sliding scale insulin, low-dose long-acting insulin. Status: Acute Qualifiers: Diabetes mellitus complication status: with hyperglycemia Qualified Code(s): E10.65 - Type 1 diabetes mellitus with hyperglycemia (10) Generalized weakness: Chronic. Will require physical therapy when able Status: Acute Plan Hypotension. May be secondary to sedation. Small amount of norepinephrine initiated. Discontinue metoprolol for now Multiple other medical problems as listed in the past medical history Full code Heparin will suffice for DVT prophylaxis. Attestations Medical Necessity Statement*: Needs continued hospital stay secondary to respiratory failure requiring mechanical ventilation. Critical Care Time: The high probability of a clinically significant, sudden or life threatening deterioration of the patient's [cardiac, renal, pulmonary system(s) required my full and direct attention, intervention and personal management. The critical care time is as shown. 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
[2021-12-05] MEDS: pantoprazole 40 mg SDV IVP (09:13)
[2021-12-05] MEDS: linezolid premix 600 MG/300 ML PREMIX 300 MG IV ×2 (09:13→20:21)
[2021-12-05] MEDS: clopidogrel 75 mg Tablet PO (09:13)
[2021-12-05] MEDS: aspirin 81 mg EC Tablet PO (09:14)
[2021-12-05] MEDS: atorvastatin 40 mg Tablet 80 MG PO (09:14)
[2021-12-05] MEDS: insulin lispro 100 unit/1 mL SUBCUT ×2 (09:14→17:53)
[2021-12-05 09:21] LABS: Creatine Phosphokinase 58 U/L (26-192)
--- NOTE | 2021-12-05 09:46 | PC.CHAP ---
Pastoral Care Encounter/Spiritual Assessment Type of Contact [] Declined park worker supervisor visit [] Patient/Family/Request visit [] Outpatient visit [] Follow-up visit [] Physician referral [] Code/Alert [x] Routine visit [] Staff referral [] Actively dying [x] Patient sleeping [] Family support [] [] Out of room [] Palliative care [] [] Receiving care in room [] Pre-surgical visit [] Trauma [] Long length of stay [x] ICU visit [x] Other: vent Relational/Emotional Strength [] Patient feels connected with others/family/visitors/staff [] Distress [] Loneliness/isolation [] Abandonment Spirituality of Patient [] Person of Annette [] Attends Roman Catholic of their Annette [] Believes in Prayer [] Reads Bible or Religion materials [] There are Spiritual issues to be addressed Clinical Documentation Nurse Interventions [x] Prayer [] Active listening [] Non-anxious presence [] Spiritual/emotional support [] Crisis/trauma care [] Spiritual counseling [] Bereavement support [] Provided bereavement packet [] Provided Bible/devotional materials [] Provided toy/stuffed animal, coloring book to patient or family member [] Provided Communion [] Anointing/[place] [] Salvation [x] Completed spiritual assessment [] Other: Impact on Illness or Injury [] Angry [] Fearful [] Anxious [] Often cries [] Exhaustion [] Unable to work [] Unable to attend faith [] Unable to walk/stand [] Unable to read [] Unable to drive [] Unable to eat/drink [] Unable to sleep [] Unable to be with family [] Patient intubated [] Other: Summary Time spent with patient
[2021-12-05] MEDS: metoprolol tartrate 25 mg Tablet 12.5 MG PO ×2 (11:50→20:42)
[2021-12-05] MEDS: LORazepam 2 mg/mL INJ 1 mL 0.5 MG IVP (12:17)
[2021-12-05] MEDS: metoprolol tartrate 1 mg/1 mL SDV 5 mL 5 MG IVP (12:48)
--- NOTE | 2021-12-05 13:21 | PC.NURSE ---
wasted fentanyl gtt, 9 ml, versed gt 25 ml. Sanjuana REINA witnessed
--- NOTE | 2021-12-05 13:32 | ECG_ITS ---
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 Measurements Intervals [place] Rate: 128 P: 66 MS: 170 QRS: 21 QRSD: 82 T: 79 QT: 286 QTc: 418 Interpretive Statements SINUS TACHYCARDIA POSSIBLE RIGHT VENTRICULAR CONDUCTION DELAY [RSR (QR) IN V1/V2] Compared to ECG 12/04/2021 11:46:08 Sinus rhythm no longer present Electronically Signed On 12-05-2021 17:52:12 CDT by Mustapha Stearns M.D. [email or web address]
[2021-12-05 13:52] LABS: ABG PH Result 7.21 (7.35-7.45); Alveolar-Arterial Oxygen Gradi 11.7 mmHg (5-10); Arterial Blood Gas Hematocrit 30.3 % (37-47); Blood Gas Allen Test Pos; Blood Gas Operator Identificat CAK; Blood Gas Sample Site Radial, left; Blood Gas Sample Type Arterial; HCO3 ABG 25.4 mmol/L (22-26); HGB O2 Sat 86.9 % (95-100); Ionized Calcium Level - ABG 1.2 mmol/L (1.1-1.4); Methemoglobin 0.8 % (0.4-1.5); Oxygen Device NC; Oxygen Saturation ABG 88.5; PO2 ABG 60.1 mmHg (80.0-100.0); Potassium Level - ABG 4.9 mmol/L (3.5-5.0); Total Hemoglobin 9.9 g/dL (12-16)
[2021-12-05 13:53] LABS: ABG PCO2 63.8 mmHg (35-45)
[2021-12-05] MEDS: dextrose 5%-sod chloride 0.9% 1,000 ML 50 ML IV (14:22)
[2021-12-05] MEDS: ondansetron 2 mg/ML SDV 2 mL 4 MG IVP (14:26)
[2021-12-05 14:51] LABS: Cortisol Random 2.17 ug/dL (2.47-19.5)
[2021-12-05 14:52] LABS: Thyroid Stimulating Hormone 3.05 uIU/mL (0.27-4.20)
--- NOTE | 2021-12-05 16:11 | PM.CONSULT ---
Providers/Reason For Consult Consulting Physician/Specialty*: ERASTO Ramos MD/cardiology Reason for Consult*: Patient with surgery failures, status post endotracheal intubation, features of pulm edema and elevated troponin T Requesting Physician: Ab Oro mD Attending Physician: Ab Oro MD History of Present Illness History of Present Illness Mariana Ace is a 41 year old female who was brought from the group home with features of acute respiratory failure. She had a hypoxic and hypercapnic respiratory failure. She was intubated in the emergency room. Today she got extubated. She was found to have features of congestive heart failure and pneumonia. She is being treated with diuretics and IV antibiotics. This patient apparently was admitted to the hospital with features of respiratory distress in August of this year. She had some marginally elevated troponin T at that time. She also had features of pneumonia, congestive heart failure and acute kidney injury. She had endotracheal intubation and subsequent extubation. She had a CT of the head which revealed features of cerebellar stroke. She underwent CTA of the head and neck which revealed dissection of the right vertebral artery. She was discharged back to group home in stable condition at that time. For the last few days prior to the hospital admission, patient being having increasing shortness of breath. She had some acute worsening of the shortness of breath on the day of admission. At the time of examination, patient is very sleepy.She was not able to keep her eyes opened or answer any of my questions. Most of the information is from the medical records and also from the nursing staff. This patient apparently got extubated today. She was found to be agitated soon after extubation and her heart rate was running in the 140s. She was given a small dose of Ativan. Since then, she seems to be very drowsy and sleepy as per the nursing staff. Has a history of cerebellar CVA. She has some residual weakness of the left lower extremity. Medications/Allergies Home Medications Medication Instructions Recorded Confirmed Last Taken Type metoprolol tartrate 25 mg tablet 12.5 mg PO BID@07/03/19 12/04/21 08/16/21 History pantoprazole 40 mg tablet,delayed 40 mg PO DAILY@07/03/19 12/04/21 08/16/21 History release paroxetine HCl 20 mg tablet (Paxil) 20 mg PO DAILY@07/03/19 12/04/21 08/16/21 History propylene glycol 0.6 % eye drops 1 drop OPHTHALMIC (EYE) Q12H PRN 07/03/19 12/04/21 Unknown History (Systane Balance) insulin aspart U-100 100 unit/mL See Rx Instructions .ROUTE .COMPLEX 08/16/21 12/04/21 Unknown History (3 mL) subcutaneous pen (Novolog Flexpen U-100 Insulin aspart) insulin glargine 100 unit/mL 15 unit SUBCUT DAILY@08/16/21 12/04/21 08/16/21 History subcutaneous solution (Lantus U-100 Insulin) magnesium hydroxide 400 mg/5 mL 30 ml PO DAILY PRN 08/16/21 12/04/21 Unknown History oral suspension (Milk of Magnesia) sennosides 8.6 mg-docusate sodium 1 tab-cap PO Q12H PRN 08/16/21 12/04/21 Unknown History 50 mg tablet (Senna-S) acetaminophen 325 mg tablet 650 mg PO Q6H PRN 12/04/21 12/04/21 Unknown History (Tylenol) alprazolam 0.25 mg tablet 0.25 mg PO Q24H PRN 12/04/21 12/04/21 Unknown History amlodipine 2.5 mg tablet 2.5 mg PO DAILY@12/04/21 12/04/21 Unknown History aspirin 81 mg tablet,delayed 81 mg PO DAILY@12/04/21 12/04/21 Unknown History release atorvastatin 80 mg tablet 80 mg PO DAILY@12/04/21 12/04/21 Unknown History bisacodyl 10 mg rectal suppository 10 mg MA DAILY PRN 12/04/21 12/04/21 Unknown History clopidogrel 75 mg tablet 75 mg PO DAILY@12/04/21 12/04/21 Unknown History ferrous sulfate 325 mg (65 mg 325 mg PO BID@12/04/21 12/04/21 Unknown History iron) tablet loperamide 2 mg tablet 2 mg PO PRN PRN MDD 4 tabs 12/04/21 12/04/21 Unknown History menthol 4 % topical gel (Biofreeze 1 applic TOPICAL Q4H PRN 12/04/21 12/04/21 Unknown History (menthol)) mirtazapine 7.5 mg tablet 7.5 mg PO BEDTIME@20 12/04/21 12/04/21 Unknown History ondansetron 4 mg disintegrating 4 mg PO Q8H PRN 12/04/21 12/04/21 Unknown History tablet polyethylene glycol 3350 17 gram 17 g PO DAILY PRN 12/04/21 12/04/21 Unknown History oral powder packet (Miralax) sodium phosphates 19 gram-7 118 ml MA DAILY PRN 12/04/21 12/04/21 Unknown History gram/118 mL enema (Enema) Allergies Allergy/AdvReac Type Severity Reaction Status Date / Time sulfamethoxazole Allergy Rash, Verified 12/04/21 09:56 [From Bactrim] wheezing trimethoprim [From Bactrim] Allergy Rash, Verified 12/04/21 09:56 wheezing Current Medications Generic Name Dose Route Start Last Admin Trade Name Freq PRN Reason Stop Dose Admin Albuterol/Ipratropium 3 ml 12/04/21 21:00 12/05/21 14:31 Ipratropium-Albuterol 3 Ml Neb INHALATION 3 ml Q6H SHARON Administration Aspirin 81 mg 12/04/21 09:55 12/05/21 09:14 Aspirin 81 Mg Ec Tablet PO 81 mg DAILY SHARON Administration Atorvastatin Calcium 80 mg 12/04/21 10:30 12/05/21 09:14 Atorvastatin 40 Mg Tablet PO 80 mg DAILY SHARON Administration Clopidogrel Bisulfate 75 mg 12/04/21 09:55 12/05/21 09:13 Clopidogrel 75 Mg Tablet PO 75 mg DAILY SHARON Administration Dextrose 25 ml 12/04/21 09:55 12/04/21 15:31 Dextrose 50% Syringe 50 Ml IVP 25 ml ONCE PRN Administration hypoglycemia protocol Protocol Heparin Sodium (Porcine) 5,000 unit 12/04/21 13:15 12/05/21 12:49 Heparin 5,000 Unit/Ml Inj 1 Ml SUBCUT 5,000 unit Q12H SHARON Administration Piperacillin Sod/Tazobactam 50 mls @ 12.5 mls/hr 12/04/21 09:30 12/05/21 13:22 Sod 3.375 gm/ Sodium Chloride IV Infused Q8H SHARON Infusion Protocol Norepinephrine Bitartrate 4 mg 254 mls @ 0 mls/hr 12/04/21 20:45 12/05/21 06:11 / Dextrose IV 2 mcg/min .Q0M SHARON 7.62 mls/hr Titration Protocol Per Protocol Linezolid 600 mg in 300 mls @ 300 mls/hr 12/05/21 07:30 12/05/21 10:13 Zyvox Premix IV Infused Q12H SHARON Infusion Protocol Dextrose/Sodium Chloride 1,000 mls @ 50 mls/hr 12/05/21 14:00 12/05/21 14:22 Dextrose 5%-Sod Chloride 0.9% IV 50 mls/hr .Q20H SHARON Administration Insulin Glargine 10 unit 12/04/21 21:00 12/04/21 21:51 Insulin Glargine 100 Units/1 Ml SUBCUT 10 unit BEDTIME SHARON Administration Lorazepam 0.5 mg 12/05/21 12:06 12/05/21 12:17 Lorazepam 2 Mg/Ml Inj 1 Ml IVP 0.5 mg Q4H PRN Administration ANXIETY Metoprolol Tartrate 12.5 mg 12/05/21 10:30 12/05/21 11:50 Metoprolol Tartrate 25 Mg Tablet PO 12.5 mg BID@0900,2100 SHARON Administration Ondansetron HCl 4 mg 12/04/21 13:03 12/05/21 14:26 Ondansetron 2 Mg/Ml Sdv 2 Ml IVP 4 mg Q6H PRN Administration NAUSEA AND VOMITING Pantoprazole Sodium 40 mg 12/04/21 09:55 12/05/21 09:13 Pantoprazole 40 Mg Sdv IVP 40 mg Q24H SHARON Administration Paroxetine HCl 20 mg 12/05/21 06:00 12/05/21 06:04 Paroxetine 20 Mg Tablet PO 20 mg QAM SHARON Administration PFSH Acute PFSH: Medical History Adult failure to thrive Aftercare following surgery of the genitourinary system Patient is a status post diagnostic laparoscopy with lysis of adhesions and appendectomy 2 weeks ago. No complications. Patient was counseled regarding pathology report showing acute appendicitis. Follow-up in 4 weeks Anemia Breast lump on right side at 9 o'clock position C. difficile colitis Cerebellar cerebrovascular accident (CVA) without late effect Chronic kidney disease Decubitus ulcers Generalized weakness MRSA (methicillin resistant staph aureus) culture positive Patient denies medical problems Perinephric abscess History of perinephric and retroperitoneal abscess with yeast in 2018, required percutaneous drainage and had complicated hospital course with respiratory failure, gram-negative pneumonia, thoracentesis, BiPAP therapy requirement, intolerance of oral intake, PEG tube placement, intolerance of tube feeds Secondary amenorrhea 39-year-old female with secondary amenorrhea. Progestin challenge test described Patient referred to the progestin challenge test she had a withdrawal bleeding from 05/07/2019 to 05/13/2019. Severe protein-calorie malnutrition Trichotillomania Type 1 diabetes mellitus Surgical History deliv NOS-unsp 1999 History of cholecystectomy 2011 History of tubal ligation 2000 S/P appendectomy S/P laparoscopy 05/20/2019- Diagnostic Laparoscopy, Lysis of Adhesions performed by Dr. Shah at [facility] Appendectomy performed by Dr. Robledo on 05/20/2019 Family History Grandmother Diabetes MATERNAL Cancer paternal Grandfather Heart disease maternal Cancer paternal Family/Other Breast cancer Paternal Aunt Social History Smoking and tobacco status: current every day smoker cigarettes Packs smoked per day: 1 Years cigarettes smoked: 28 Alcohol intake: never Additional social history: Well balanced diet Vitals/I&O/Wt Last Vital Signs Temp 98 F 12/05/21 09:30 Pulse 130 H 12/05/21 14:34 Resp 24 H 12/05/21 14:32 BP 129/80 12/05/21 14:00 Pulse Ox 95 12/05/21 14:32 12/05/21 12/05/21 12/05/21 06:59 14:59 22:59 Intake Total 212.243 / 9166.516 9128.852 / 1711.852 Output Total 400 / 1100 Balance -187.757 / -75.647 1711.852 / 1711.852 Weight last 48 hrs Weight 136 lb 9.6 oz Weight 122 lb 3 oz Physical Exam Narrative: GENERAL: The patient is in deep sleep. HEENT: Minimal pallor, no icterus or lymphadenopathy. The pupils are symmetrical in size oral cavity: There are no mucous membrane lesions. Funduscopic examination: T the fundus is not visualized NECK: Trachea appears to be central. No masses noted. No JVD or thyromegaly appreciated. No carotid bruit. [] RESPIRATORY: Chest is symmetrical. No intercostals muscle retraction or any accessory muscle activation. There is no chest wall tenderness. Breath sounds are heard bilaterally. No rales or rhonchi heard. No evidence of any consolidation. [] BREASTS: Deferred. [] HEART: The PMI could not be palpated. No other palpable precordial events. S1 and S2 are normal. No S3 or S4 heard. No pericardial rub or any click heard. [] ABDOMEN: No vessel pulsations or distention. No tenderness. No organomegaly appreciated. No abdominal bruit. Bowel sounds are normally heard. [] : Deferred. [] RECTAL: Deferred. [] LYMPHATIC: No lymphadenopathy noted in the neck or groin. [] EXTREMITIES: Trace edema with no cyanosis. The peripheral pulses are palpable but weak bilaterally Musculoskeletal exam: No acute joint deformities or swelling SKIN: There are no significant scars or skin rash noted. [] NEUROPSYCHIATRIC: Patient seems to be moving all her extremities. Urinary Catheter Management: Fall: Cath Placed During This Visit: yes Reason for Continuing Indwelling Catheter: Accurate Measurement of Urinary Output in Critically Ill Patients Urinary Catheter Date of Insertion: 12/04/21 Urinary Catheter Time of Insertion: 05:00 Data : 12/06/21 02:33 12/06/21 02:33 Other Labs: Laboratory Last Values WBC 7.2 10^3/uL (4.0-10.0) 12/05/21 03:36 RBC 3.07 10^6/uL (4.1-5.3) L 12/05/21 03:36 Hgb 8.5 g/dL (11.5-15.3) L 12/05/21 03:36 Hct 26.8 % (37.0-47.0) L 12/05/21 03:36 MCV 87.3 fl (81-99) 12/05/21 03:36 MCH 27.7 pg (28.0-34.0) L 12/05/21 03:36 MCHC 31.7 g/dL (30.0-36.0) 12/05/21 03:36 RDW 14.5 % (12.1-15.1) 12/05/21 03:36 Plt Count 180 10^3/cmm (130-400) 12/05/21 03:36 MPV 10.4 fL (7.4-10.4) 12/05/21 03:36 Neut % (Auto) 61.1 % 12/05/21 03:36 Lymph % (Auto) 27.4 % 12/05/21 03:36 [place] % (Auto) 10.2 % 12/05/21 03:36 Eos % (Auto) 0.7 % 12/05/21 03:36 Baso % (Auto) 0.3 % 12/05/21 03:36 Neut # (Auto) 4.39 10^3/uL (1.8-7.7) 12/05/21 03:36 Lymph # (Auto) 2.0 10^3/uL (0.8-4.8) 12/05/21 03:36 [place] # (Auto) 0.7 10^3/uL (0.2-0.9) 12/05/21 03:36 Eos # (Auto) 0.1 10^3/uL (0.0-0.8) 12/05/21 03:36 Baso # (Auto) 0.0 10^3/uL (0.0-0.1) 12/05/21 03:36 Nucleated RBC % (auto) 0 % 12/05/21 03:36 Nucleated RBCs # 0.0 /100WBC 12/05/21 03:36 D-Dimer 2.91 ug/mIFEU (0-0.59) H 12/04/21 08:53 Specimen Type Arterial 12/05/21 16:17 Sample Site Radial, left 12/05/21 16:17 ABG pH 7.26 (7.35-7.45) L 12/05/21 16:17 ABG pCO2 54.3 mmHg (35-45) H 12/05/21 16:17 ABG pO2 73.9 mmHg (80.0-100.0) L 12/05/21 16:17 ABG HCO3 24.6 mmol/L (22-26) 12/05/21 16:17 ABG O2 Saturation 88.5 12/05/21 13:41 ABG Base Excess -2.7 mmol/L (-2.0-2.0) L 12/05/21 16:17 Kaushik Test Pos 12/05/21 16:17 A-a O2 Gradient 11.7 mmHg (5-10) H 12/05/21 13:41 Hematocrit 28.8 % (37-47) L 12/05/21 16:17 Hgb O2 Saturation 86.9 % (95-100) L 12/05/21 13:41 Carboxyhemoglobin 1.0 %THgb (0.4-20.1) 12/05/21 13:41 Methemoglobin 0.8 % (0.4-1.5) 12/05/21 13:41 Total Hemoglobin 9.9 g/dL (12-16) L 12/05/21 13:41 Sodium 138.0 mmol/L (131-143) 12/05/21 13:41 Potassium 4.9 mmol/L (3.5-5.0) 12/05/21 13:41 Glucose 157.0 mg/dL (70-115) H 12/05/21 13:41 Ionized Calcium 1.2 mmol/L (1.1-1.4) 12/05/21 13:41 O2 Delivery Device Nc 12/05/21 16:17 O2 Liters/Min 4.0 % 12/05/21 16:17 FiO2 36.0 % 12/05/21 16:17 Tidal Volume 0.40 12/05/21 04:00 PEEP 5.0 cmH20 12/05/21 04:00 Consular Officer ID Cak 12/05/21 16:17 Sodium 136 mmol/L (136-145) 12/05/21 16:35 Potassium 5.0 mmol/L (3.5-5.1) 12/05/21 16:35 Chloride 102 mmol/L (98-107) 12/05/21 16:35 Carbon Dioxide 25 mmol/L (22-29) 12/05/21 16:35 Anion Gap 14.0 (5-19) 12/05/21 16:35 BUN 38 mg/dL (6-20) H 12/05/21 16:35 Creatinine 1.9 mg/dL (0.5-0.9) H 12/05/21 16:35 GFR Calculation 29.3 mL/min (90-130) L 12/05/21 16:35 Glucose 217 mg/dL (65-115) H 12/05/21 16:35 POC Glucose 130 mg/dL (70-110) H 12/05/21 21:49 Calculated Osmolality 298 mOsm/kg (285-295) H 12/05/21 16:35 Lactic Acid 0.6 mmol/L (0.5-2.2) 12/04/21 04:40 Calcium 8.1 mg/dL (8.5-10.5) L 12/05/21 16:35 Magnesium 2.2 mg/dL (1.7-2.3) 12/05/21 03:36 Total Bilirubin 0.2 mg/dL (0.15-1.2) 12/05/21 03:36 AST 12 U/L (0-32) 12/05/21 03:36 ALT 13 U/L (0-33) 12/05/21 03:36 Alkaline Phosphatase 128 IU/L (35-105) H 12/05/21 03:36 Creatine Kinase 58 U/L (26-192) 12/05/21 03:36 Troponin T Baseline 51 ng/L (0-10) H 12/04/21 04:40 Troponin T 120 Minute 56.39 ng/L (0-10) H 12/04/21 06:39 Delta Troponin T 5.39 ABS# (0-10) 12/04/21 06:39 Troponin T Hi Sens 6Hr 62.85 ng/L (0-10) H 12/04/21 10:49 Troponin T Hi Sens 6Hr Delta 11.85 ng/L (0-12) 12/04/21 10:49 C-Reactive Protein 4.9 mg/L (0.0-4.9) 12/04/21 04:40 NT-Pro-B Natriuret Pep 4152 pg/mL (0-125) H 12/04/21 04:40 Total Protein 4.8 g/dL (6.6-8.7) L 12/05/21 03:36 Albumin 2.7 g/dL (3.5-5.2) L 12/05/21 03:36 Globulin 2.1 g/dL (1.3-4.6) 12/05/21 03:36 Procalcitonin 0.58 ng/mL (0-0.5) H 12/04/21 04:40 TSH 3.05 uIU/mL (0.27-4.20) 12/05/21 03:36 Random Cortisol 2.17 ug/dL (2.47-19.5) L 12/05/21 03:36 Urine Color Yellow (Yellow) 12/04/21 04:58 Urine Appearance Clear (CLEAR) 12/04/21 04:58 Urine pH 5 (5-7) 12/04/21 04:58 Ur Specific [place] 1.020 (1.005-1.030) 12/04/21 04:58 Urine Protein 3+ (Negative) H 12/04/21 04:58 Urine Glucose (UA) 2+ (Normal) H 12/04/21 04:58 Urine Ketones Negative (Negative) 12/04/21 04:58 Urine Blood Neg (Negative) 12/04/21 04:58 Urine Nitrate Negative (Negative) 12/04/21 04:58 Urine Bilirubin Neg (Negative) 12/04/21 04:58 Urine Urobilinogen Norm mg/dL (Negative) 12/04/21 04:58 Ur Leukocyte Esterase Negative (Negative) 12/04/21 04:58 Urine RBC 0-4 /hpf (0-2) H 12/04/21 04:58 Urine WBC 0-4 /hpf (0-5) H 12/04/21 04:58 Ur Squamous Epith Cells 10-15 /hpf (0-5) H 12/04/21 04:58 Amorphous Sediment Not Reportable 12/04/21 04:58 Urine Bacteria 1+ /hpf (NONE) H 12/04/21 04:58 Hyaline Casts 0-4 /lpf H 12/04/21 04:58 Coarse Granular Casts 0-4 /lpf H 12/04/21 04:58 Urine Mucus Trace /hpf 12/04/21 04:58 Coronavirus 229E (PCR) Not detected (NOT DETECT) 12/04/21 06:30 SARS-CoV-2 (PCR) Not detected (NOT DETECT) 12/04/21 06:30 Micro: Microbiology 12/04/21 10:06 Gram Stain - Final Sputum - Endotracheal Tube Aspirate Sputum Culture - Preliminary 12/04/21 04:40 Blood Culture - Preliminary Blood Staphylococcus epidermidis 12/04/21 04:40 Blood Culture - Preliminary Blood NEGATIVE TO DATE A&P Assessment and plan (1) Elevated troponin: The patient was found to have elevated troponin T with 6 hours delta of 11.85. This could suggest a non-ST elevation myocardial infarction. Her EKG from today revealed a sinus rhythm with a diffuse nonspecific ST changes. Possible left atrial enlargement. Nonspecific T wave changes in the high lateral leads. Apparently she never had any chest pain. To evaluate for underlying coronary ischemia, and medical perfusion may would be appropriate. Once her respiratory and mental status are stable, it would be appropriate to go ahead and do a Lexiscan/sestamibi/sestamibi stress test. Based on the results, further recommendations will be made. Status: Acute (2) Acute respiratory failure with hypoxia and hypercapnia: Patient may have some underlying lung pathology. Pneumonia and heart failure are contributing factors. Currently her oxygenation seems to be stable. She is extubated. Status: Acute (3) Type 1 diabetes mellitus: May continue on the current medications. Status: Acute Qualifiers: Diabetes mellitus complication status: with hyperglycemia Qualified Code(s): E10.65 - Type 1 diabetes mellitus with hyperglycemia (4) Chronic kidney disease: Patient is known to have chronic kidney disease. This could be related to diabetes. This needs to be closely monitored for Status: Acute (5) Pneumonia: Patient is on IV of antibiotics. Management as per the primary Status: Acute (6) Anemia: Etiology of anemia is not clear. Patient may benefit from endoscopy studies. Status: Acute Plan We will consider scheduling the patient for a Lexiscan/sestamibi/sestamibi stress test for tomorrow. I will be reevaluating her mental status in the morning. Based on the results of the above tests and the patient's clinical progress, further recommendations will be made. 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
[2021-12-05 16:28] LABS: ABG PCO2 54.3 mmHg (35-45); ABG PH Result 7.26 (7.35-7.45); Arterial Blood Gas Hematocrit 28.8 % (37-47); Base Excess ABG -2.7 mmol/L (-2.0-2.0); Blood Gas Allen Test Pos; Blood Gas Operator Identificat CAK; Blood Gas Sample Site Radial, left; Blood Gas Sample Type Arterial; HCO3 ABG 24.6 mmol/L (22-26); Oxygen Device NC; PO2 ABG 73.9 mmHg (80.0-100.0)
[2021-12-05] MEDS: metoclopramide 5 mg/mL SDV 2 mL 10 MG IVP (16:31)
[2021-12-05 17:08] LABS: Blood Urea Nitrogen 38 mg/dL (6-20); Calcium 8.1 mg/dL (8.5-10.5); Carbon Dioxide 25 mmol/L (22-29); Chloride 102 mmol/L (98-107); Glomerular Filtration Rate 29.3 mL/min (90-130); Glucose 217 mg/dL (65-115); Osmolality Calculated 298 mOsm/kg (285-295); Sodium 136 mmol/L (136-145)
[2021-12-05 18:08] LABS: Glucose Point of Care 222 mg/dL (70-110)
[2021-12-05 18:08] LABS: Glucose Point of Care 264 mg/dL (70-110)
[2021-12-05 18:08] LABS: Glucose Point of Care 206 mg/dL (70-110)
[2021-12-05 20:32] LABS: Glucose Point of Care 67 mg/dL (70-110)
[2021-12-05 20:32] LABS: Glucose Point of Care 57 mg/dL (70-110)
[2021-12-05] MEDS: dextrose 50% syringe 50 mL 25 ML IVP (20:43)
[2021-12-05] MEDS: acetaminophen 325 mg Tablet 650 MG PO (20:43)
[2021-12-05 21:52] LABS: Glucose Point of Care 130 mg/dL (70-110)
[2021-12-05] MEDS: hydrocortisone 100 mg/2 mL SDV IVP (22:15)
[2021-12-06] VITALS (30 sets, daily range): BP systolic 115–155; BP diastolic 63–106; PULSE 92–132; RESP 10–23; TEMP 36.2–36.9; O2SAT 89–100
[2021-12-06] MEDS: heparin 5,000 unit/mL INJ 1 mL 5000 UNIT SUBCUT ×2 (02:08→13:05)
[2021-12-06] MEDS: piperacillin-tazobactam 3.375 GM in sodium chloride 0.9% (plus) 50 ML IV ×3 (02:08→16:43)
[2021-12-06] MEDS: ipratropium-albuterol 3 mL Neb INHALATION ×4 (02:09→20:53)
[2021-12-06 03:50] LABS: Basophils % 0.3 %; Eosinophils % 0.1 %; Hematocrit 29.2 % (37.0-47.0); Hemoglobin 9.2 g/dL (11.5-15.3); Lymphocytes # 0.7 10^3/uL (0.8-4.8); Lymphocytes % 9.4 %; Mean Corpuscular HGB Conc 31.5 g/dL (30.0-36.0); Mean Corpuscular Hemoglobin 27.5 pg (28.0-34.0); Mean Corpuscular Volume 87.4 fl (81-99); Mean Platelet Volume 10.6 fL (7.4-10.4); Monocytes # 0.2 10^3/uL (0.2-0.9); Monocytes % 2.6 %; Neutrophils # 6.11 10^3/uL (1.8-7.7); Neutrophils % 87.2 %; Nucleated Red Blood Cells % 0 %; Platelet Count 164 10^3/cmm (130-400); Red Blood Count 3.34 10^6/uL (4.1-5.3)
[2021-12-06 04:23] LABS: Alanine Aminotransferase 15 U/L (0-33); Albumin Level 3.1 g/dL (3.5-5.2); Alkaline Phosphatase 141 IU/L (35-105); Anion Gap 16.1 (5-19); Aspartate Amino Transferase 13 U/L (0-32); Blood Urea Nitrogen 45 mg/dL (6-20); Calcium 8.4 mg/dL (8.5-10.5); Carbon Dioxide 23 mmol/L (22-29); Chloride 103 mmol/L (98-107); Globulin 2.8 g/dL (1.3-4.6); Glomerular Filtration Rate 22.4 mL/min (90-130); Glucose 168 mg/dL (65-115); Osmolality Calculated 299 mOsm/kg (285-295); Potassium 5.1 mmol/L (3.5-5.1); Sodium 137 mmol/L (136-145); Total Bilirubin 0.2 mg/dL (0.15-1.2); Total Protein 5.9 g/dL (6.6-8.7)
[2021-12-06] MEDS: PARoxetine 20 mg Tablet PO (05:08)
[2021-12-06] MEDS: hydrocortisone 100 mg/2 mL SDV IVP ×2 (05:08→16:42)
[2021-12-06] MEDS: linezolid premix 600 MG/300 ML PREMIX 300 MG IV (06:45)
--- NOTE | 2021-12-06 06:54 | US_ITS ---
WS: [id number] Exam: US renal BI* [id number] Date/Time of Exam: 12/06/2021 10:52 AM Reason For Exam: renal failure Comparison 08/20/2021 Normal-appearing left kidney measures 10.36 x 4 point 4 x 4 0.87 cm. There is hydronephrosis of the r ight kidney noted. The right kidney measures 10.1 x 3.9 x 4.16 cm. Right renal cortex measures 1.38 c m at greatest thickness, the left measures 1.11 cm. A Fall catheter bulb is noted in the urinary russ dder. A left adnexal cystic lesion was identified and measures 5.2 x 5.8 x 2.83 cm. The abdominal aor ta was obscured by bowel gas. No solid renal mass or renal cyst was noted. US/US renal BI* [id number] IMPRESSION: 1. Hydronephrosis of the right kidney. 2. Normal-appearing left kidney. 3. Fall catheter noted in the urinary bladder. 4. 5.2 x 5.8 x 2.8. Centimeter cystic lesion in the left adnexa. A dedicated pe lvic ultrasound could be considered for further workup if thought to be clinica lly warranted. 5. No solid or cystic renal mass.
[2021-12-06] MEDS: insulin lispro 100 unit/1 mL SUBCUT ×4 (08:21→20:24)
[2021-12-06] MEDS: clopidogrel 75 mg Tablet PO (08:21)
[2021-12-06] MEDS: aspirin 81 mg EC Tablet PO (08:21)
[2021-12-06] MEDS: metoprolol tartrate 25 mg Tablet 12.5 MG PO ×2 (08:22→20:24)
[2021-12-06] MEDS: sodium chloride 0.9% 1,000 ML 50 ML IV (08:31)
[2021-12-06] MEDS: pantoprazole 40 mg SDV IVP (09:24)
--- NOTE | 2021-12-06 09:36 | PM.PN ---
Subjective Subjective: Patient is more alert and awake today. Denies any chest pain or chest tightness. No fever or chills. No cough. Oxygenation is improving. Medications: Medication Review Details: Current Medications Acetaminophen (Acetaminophen 325 Mg Tablet) 650 mg PO Q6H PRN PRN Reason: MILD PAIN Last Admin: 12/06/21 19:31 Dose: 650 mg Documented by: Albuterol/Ipratropium (Ipratropium-Albuterol 3 Ml Neb) 3 ml INHALATION Q6H [facility] Last Admin: 12/06/21 14:25 Dose: 3 ml Documented by: Aspirin (Aspirin 81 Mg Ec Tablet) 81 mg PO DAILY [facility] Last Admin: 12/06/21 08:21 Dose: 81 mg Documented by: Clopidogrel Bisulfate (Clopidogrel 75 Mg Tablet) 75 mg PO DAILY [facility] Last Admin: 12/06/21 08:21 Dose: 75 mg Documented by: Dextrose (Dextrose 50% Syringe 50 Ml) 50 ml IVP PRN PRN; Protocol PRN Reason: hypoglycemia protocol Glucagon (Glucagon 1 Mg/Ml Inj 1 Ml) 1 mg IM ONCE PRN; Protocol PRN Reason: Adult Acute Hypoglycemia Prot. Heparin Sodium (Porcine) (Heparin 5,000 Unit/Ml Inj 1 Ml) 5,000 unit SUBCUT Q12H [facility] Last Admin: 12/06/21 13:05 Dose: 5,000 unit Documented by: Hydrocortisone Sodium Succinate (Hydrocortisone 100 Mg/2 Ml Sdv) 100 mg IVP Q12H [facility] Last Admin: 12/06/21 16:42 Dose: 100 mg Documented by: Piperacillin Sod/Tazobactam (Sod 3.375 gm/ Sodium Chloride) 50 mls @ 12.5 mls/hr IV Q8H [facility]; Protocol Last Admin: 12/06/21 16:43 Dose: 12.5 mls/hr Documented by: Dextrose (D5w) 500 mls @ 100 mls/hr IV ONCE PRN; Protocol PRN Reason: Adult Acute Hypoglycemia Prot Norepinephrine Bitartrate 4 mg (/ Dextrose) 254 mls @ 0 mls/hr IV .Q0M [facility]; Protocol Last Titration: 12/05/21 11:00 Dose: 0 mcg/min, 0 mls/hr Documented by: Linezolid (Zyvox Premix) 600 mg in 300 mls @ 300 mls/hr IV Q12H [facility]; Protocol Last Admin: 12/06/21 19:32 Dose: 200 mls/hr Documented by: Sodium Chloride (Sodium Chloride 0.9%) 1,000 mls @ 50 mls/hr IV .Q20H [facility] Last Admin: 12/06/21 08:31 Dose: 50 mls/hr Documented by: Insulin Glargine (Insulin Glargine 100 Units/1 Ml) 10 unit SUBCUT BEDTIME [facility] Last Admin: 12/05/21 20:39 Dose: Not Given Documented by: Insulin Human Lispro (Insulin Lispro 100 Unit/1 Ml) 0 unit SUBCUT WM&BEDTIME [facility]; Protocol Last Admin: 12/06/21 17:19 Dose: 8 unit Documented by: Lorazepam (Lorazepam 2 Mg/Ml Inj 1 Ml) 0.5 mg IVP Q4H PRN PRN Reason: ANXIETY Last Admin: 12/05/21 12:17 Dose: 0.5 mg Documented by: Metoclopramide HCl (Metoclopramide 5 Mg/Ml Sdv 2 Ml) 10 mg IVP Q6H PRN PRN Reason: NAUSEA AND VOMITING Last Admin: 12/05/21 16:31 Dose: 10 mg Documented by: Metoprolol Tartrate (Metoprolol Tartrate 25 Mg Tablet) 12.5 mg PO BID@0900,2100 [facility] Last Admin: 12/06/21 08:22 Dose: 12.5 mg Documented by: Ondansetron HCl (Ondansetron 2 Mg/Ml Sdv 2 Ml) 4 mg IVP Q6H PRN PRN Reason: NAUSEA AND VOMITING Last Admin: 12/05/21 14:26 Dose: 4 mg Documented by: Pantoprazole Sodium (Pantoprazole 40 Mg Sdv) 40 mg IVP Q24H [facility] Last Admin: 12/06/21 09:24 Dose: 40 mg Documented by: Paroxetine HCl (Paroxetine 20 Mg Tablet) 20 mg PO QAM [facility] Last Admin: 12/06/21 05:08 Dose: 20 mg Documented by: Vitals/I&O/Wt Last Vital Signs Temp 98.3 F 12/06/21 08:00 Pulse 101 H 12/06/21 08:00 Resp 13 12/06/21 08:00 BP 142/91 12/06/21 08:00 Pulse Ox 97 12/06/21 08:00 0612/06/21 12/06/21 22:59 06:59 14:59 Intake Total 450 / 2198.555 50 / 2248.555 1470 / 1470 Output Total 375 / 375 600 / 975 Balance 75 / 1823.555 -550 / 9132.925 4923 / 1470 Weight last 48 hrs Weight 136 lb 9.6 oz Physical Exam Narrative: GENERAL: The patient is alert and oriented times three. Not in any acute distress. HEENT: No significant pallor, icterus or lymphadenopathy.Oral cavity: There are no mucous membrane lesions. NECK: Trachea appears to be central. No masses noted. No JVD or thyromegaly appreciated. RESPIRATORY: Chest is symmetrical. No intercostals muscle retraction or any accessory muscle activation. There is no chest wall tenderness. Breath sounds are heard bilaterally. Scattered Rales bilaterally BREASTS: Deferred. HEART: The heart sounds are normal. No S3 or S4. No significant murmurs. No pericardial rub ABDOMEN: No vessel pulsations or distention. No tenderness. No organomegaly appreciated. Bowel sounds are normally heard. : Deferred. RECTAL: Deferred. LYMPHATIC: No lymphadenopathy noted in the neck. EXTREMITIES: No edema or cyanosis. No clubbing. MUSCULOSKELETAL: No acute joint deformities or swelling SKIN: There are no significant rashes or ecchymosis NEUROPSYCHIATRIC: The patient is alert and oriented x3. Appears to be in a good mood. No tremors or rigidity noted. Urinary Catheter Management: Fall: Cath Placed During This Visit: yes Reason for Continuing Indwelling Catheter: Accurate Measurement of Urinary Output in Critically Ill Patients Urinary Catheter Date of Insertion: 12/04/21 Urinary Catheter Time of Insertion: 05:00 Data : 12/06/21 02:33 12/06/21 02:33 Other Labs: Laboratory Last Values WBC 7.0 10^3/uL (4.0-10.0) 12/06/21 02:33 RBC 3.34 10^6/uL (4.1-5.3) L 12/06/21 02:33 Hgb 9.2 g/dL (11.5-15.3) L 12/06/21 02:33 Hct 29.2 % (37.0-47.0) L 12/06/21 02:33 MCV 87.4 fl (81-99) 12/06/21 02:33 MCH 27.5 pg (28.0-34.0) L 12/06/21 02:33 MCHC 31.5 g/dL (30.0-36.0) 12/06/21 02:33 RDW 14.0 % (12.1-15.1) 12/06/21 02:33 Plt Count 164 10^3/cmm (130-400) 12/06/21 02:33 MPV 10.6 fL (7.4-10.4) H 12/06/21 02:33 Neut % (Auto) 87.2 % 12/06/21 02:33 Lymph % (Auto) 9.4 % 12/06/21 02:33 [place] % (Auto) 2.6 % 12/06/21 02:33 Eos % (Auto) 0.1 % 12/06/21 02:33 Baso % (Auto) 0.3 % 12/06/21 02:33 Neut # (Auto) 6.11 10^3/uL (1.8-7.7) 12/06/21 02:33 Lymph # (Auto) 0.7 10^3/uL (0.8-4.8) L 12/06/21 02:33 [place] # (Auto) 0.2 10^3/uL (0.2-0.9) 12/06/21 02:33 Eos # (Auto) 0.0 10^3/uL (0.0-0.8) 12/06/21 02:33 Baso # (Auto) 0.0 10^3/uL (0.0-0.1) 12/06/21 02:33 Nucleated RBC % (auto) 0 % 12/06/21 02:33 Nucleated RBCs # 0.0 /100WBC 12/06/21 02:33 D-Dimer 2.91 ug/mIFEU (0-0.59) H 12/04/21 08:53 Specimen Type Arterial 12/05/21 16:17 Sample Site Radial, left 12/05/21 16:17 ABG pH 7.26 (7.35-7.45) L 12/05/21 16:17 ABG pCO2 54.3 mmHg (35-45) H 12/05/21 16:17 ABG pO2 73.9 mmHg (80.0-100.0) L 12/05/21 16:17 ABG HCO3 24.6 mmol/L (22-26) 12/05/21 16:17 ABG O2 Saturation 88.5 12/05/21 13:41 ABG Base Excess -2.7 mmol/L (-2.0-2.0) L 12/05/21 16:17 Kaushik Test Pos 12/05/21 16:17 A-a O2 Gradient 11.7 mmHg (5-10) H 12/05/21 13:41 Hematocrit 28.8 % (37-47) L 12/05/21 16:17 Hgb O2 Saturation 86.9 % (95-100) L 12/05/21 13:41 Carboxyhemoglobin 1.0 %THgb (0.4-20.1) 12/05/21 13:41 Methemoglobin 0.8 % (0.4-1.5) 12/05/21 13:41 Total Hemoglobin 9.9 g/dL (12-16) L 12/05/21 13:41 Sodium 138.0 mmol/L (131-143) 12/05/21 13:41 Potassium 4.9 mmol/L (3.5-5.0) 12/05/21 13:41 Glucose 157.0 mg/dL (70-115) H 12/05/21 13:41 Ionized Calcium 1.2 mmol/L (1.1-1.4) 12/05/21 13:41 O2 Delivery Device Nc 12/05/21 16:17 O2 Liters/Min 4.0 % 12/05/21 16:17 FiO2 36.0 % 12/05/21 16:17 Tidal Volume 0.40 12/05/21 04:00 PEEP 5.0 cmH20 12/05/21 04:00 Treasury Associate ID Cak 12/05/21 16:17 Sodium 137 mmol/L (136-145) 12/06/21 02:33 Potassium 5.1 mmol/L (3.5-5.1) 12/06/21 02:33 Chloride 103 mmol/L (98-107) 12/06/21 02:33 Carbon Dioxide 23 mmol/L (22-29) 12/06/21 02:33 Anion Gap 16.1 (5-19) 12/06/21 02:33 BUN 45 mg/dL (6-20) H 12/06/21 02:33 Creatinine 2.4 mg/dL (0.5-0.9) H 12/06/21 02:33 GFR Calculation 22.4 mL/min (90-130) L 12/06/21 02:33 Glucose 168 mg/dL (65-115) H 12/06/21 02:33 POC Glucose 130 mg/dL (70-110) H 12/05/21 21:49 Calculated Osmolality 299 mOsm/kg (285-295) H 12/06/21 02:33 Lactic Acid 0.6 mmol/L (0.5-2.2) 12/04/21 04:40 Calcium 8.4 mg/dL (8.5-10.5) L 12/06/21 02:33 Magnesium 2.2 mg/dL (1.7-2.3) 12/05/21 03:36 Total Bilirubin 0.2 mg/dL (0.15-1.2) 12/06/21 02:33 AST 13 U/L (0-32) 12/06/21 02:33 ALT 15 U/L (0-33) 12/06/21 02:33 Alkaline Phosphatase 141 IU/L (35-105) H 12/06/21 02:33 Creatine Kinase 58 U/L (26-192) 12/05/21 03:36 Troponin T Baseline 51 ng/L (0-10) H 12/04/21 04:40 Troponin T 120 Minute 56.39 ng/L (0-10) H 12/04/21 06:39 Delta Troponin T 5.39 ABS# (0-10) 12/04/21 06:39 Troponin T Hi Sens 6Hr 62.85 ng/L (0-10) H 12/04/21 10:49 Troponin T Hi Sens 6Hr Delta 11.85 ng/L (0-12) 12/04/21 10:49 C-Reactive Protein 4.9 mg/L (0.0-4.9) 12/04/21 04:40 NT-Pro-B Natriuret Pep 4152 pg/mL (0-125) H 12/04/21 04:40 Total Protein 5.9 g/dL (6.6-8.7) L D 12/06/21 02:33 Albumin 3.1 g/dL (3.5-5.2) L 12/06/21 02:33 Globulin 2.8 g/dL (1.3-4.6) 12/06/21 02:33 Procalcitonin 0.58 ng/mL (0-0.5) H 12/04/21 04:40 TSH 3.05 uIU/mL (0.27-4.20) 12/05/21 03:36 Random Cortisol 2.17 ug/dL (2.47-19.5) L 12/05/21 03:36 Urine Color Yellow (Yellow) 12/04/21 04:58 Urine Appearance Clear (CLEAR) 12/04/21 04:58 Urine pH 5 (5-7) 12/04/21 04:58 Ur Specific [place] 1.020 (1.005-1.030) 12/04/21 04:58 Urine Protein 3+ (Negative) H 12/04/21 04:58 Urine Glucose (UA) 2+ (Normal) H 12/04/21 04:58 Urine Ketones Negative (Negative) 12/04/21 04:58 Urine Blood Neg (Negative) 12/04/21 04:58 Urine Nitrate Negative (Negative) 12/04/21 04:58 Urine Bilirubin Neg (Negative) 12/04/21 04:58 Urine Urobilinogen Norm mg/dL (Negative) 12/04/21 04:58 Ur Leukocyte Esterase Negative (Negative) 12/04/21 04:58 Urine RBC 0-4 /hpf (0-2) H 12/04/21 04:58 Urine WBC 0-4 /hpf (0-5) H 12/04/21 04:58 Ur Squamous Epith Cells 10-15 /hpf (0-5) H 12/04/21 04:58 Amorphous Sediment Not Reportable 12/04/21 04:58 Urine Bacteria 1+ /hpf (NONE) H 12/04/21 04:58 Hyaline Casts 0-4 /lpf H 12/04/21 04:58 Coarse Granular Casts 0-4 /lpf H 12/04/21 04:58 Urine Mucus Trace /hpf 12/04/21 04:58 Coronavirus 229E (PCR) Not detected (NOT DETECT) 12/04/21 06:30 SARS-CoV-2 (PCR) Not detected (NOT DETECT) 12/04/21 06:30 Micro: Microbiology 12/04/21 10:06 Gram Stain - Final Sputum - Endotracheal Tube Aspirate Sputum Culture - Preliminary 12/04/21 04:40 Blood Culture - Preliminary Blood Staphylococcus epidermidis 12/04/21 04:40 Blood Culture - Preliminary Blood NEGATIVE TO DATE A&P Assessment and plan (1) Elevated troponin: The patient was found to have elevated troponin T with 6 hours delta of 11.85. This could suggest a non-ST elevation myocardial infarction. Her EKG from today revealed a sinus rhythm with a diffuse nonspecific ST changes. Possible left atrial enlargement. Nonspecific T wave changes in the high lateral leads. Apparently she never had any chest pain. To evaluate for underlying coronary ischemia, and medical perfusion may would be appropriate. We may go in and schedule the myocardial perfusion imaging for tomorrow. Patient may be kept n.p.o. after midnight. Status: Acute (2) Acute respiratory failure with hypoxia and hypercapnia: Respiratory status currently seems to be stable. May continue on the current measures. Status: Acute (3) Type 1 diabetes mellitus: May continue on the current medications. Status: Acute Qualifiers: Diabetes mellitus complication status: with hyperglycemia Qualified Code(s): E10.65 - Type 1 diabetes mellitus with hyperglycemia (4) Chronic kidney disease: Patient is a kidney function seems to be getting worse. Nephrology is consulted. Status: Acute (5) Pneumonia: Patient is on IV of antibiotics. Management as per the primary Status: Acute (6) Anemia: Etiology of anemia is not clear. Patient may benefit from endoscopy studies. Status: Acute Plan Possible microperforation vein tomorrow. Based on the results, further recommendations will be made. Attestations Medical Necessity Statement*: Patient requires continued hospital stay for close monitoring and further management 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 of Care Code Acute Chiropractor Assistant for Chg Fwd History Expanded Problem Focused Exam Detailed Medical Decision Making Moderate Complexity Diagnoses Elevated troponin R77.8 Acute respiratory failure with hypoxia and hypercapnia J96.01; J96.02 Type 1 diabetes mellitus E10.65 Diabetes mellitus complication status: with hyperglycemia Chronic kidney disease N18.9 Pneumonia J18.9 Anemia D64.9
--- NOTE | 2021-12-06 09:42 | P.PN_ITS ---
Subjective Subjective: Mariana reports no pain this morning. States her breathing is better. She is hungry and wants to eat. She had no events last night, tolerated BiPAP. Medications: Reviewed: Yes Vitals/I&O/Wt Last Vital Signs Temp 98.3 F 12/06/21 08:00 Pulse 101 H 12/06/21 08:00 Resp 13 12/06/21 08:00 BP 142/91 12/06/21 08:00 Pulse Ox 97 12/06/21 08:00 12/05/21 12/06/21 12/06/21 22:59 06:59 14:59 Intake Total 450 / 2198.555 50 / 2248.555 1470 / 1470 Output Total 375 / 375 600 / 975 Balance 75 / 1823.555 -550 / 7237.573 8575 / 1470 Weight last 48 hrs Weight 61.961 kg Physical Exam Narrative: General exam awake and conversive Neck is supple no lymphadenopathy or thyromegaly Cardiovascular slight tachycardia, no murmur Lungs clear bilaterally Abdomen soft positive bowel sounds. No obvious organomegaly exam Fall is noted Extremities no cyanosis clubbing or edema, cap refill brisk Skin no rash Urinary Catheter Management: Fall: Cath Placed During This Visit: yes Reason for Continuing Indwelling Catheter: Accurate Measurement of Urinary Output in Critically Ill Patients Urinary Catheter Date of Insertion: 12/04/21 Urinary Catheter Time of Insertion: 05:00 Data : 12/06/21 02:33 12/06/21 02:33 Micro: Microbiology 12/04/21 10:06 Gram Stain - Final Sputum - Endotracheal Tube Aspirate Sputum Culture - Preliminary 12/04/21 04:40 Blood Culture - Preliminary Blood Staphylococcus epidermidis 12/04/21 04:40 Blood Culture - Preliminary Blood NEGATIVE TO DATE A&P Assessment and plan (1) Acute respiratory failure with hypoxia and hypercapnia: Extubated yesterday. Doing well today. Certainly more alert. Blood pressure is improved significantly. She is no longer vomiting. Hopefully she can stay off BiPAP today. CTA performed no evidence of pulmonary embolism. Consistent with pneumonia and bilateral small pleural effusions right greater than left. COVID PCR negative. Status: Acute (2) Pneumonia: Concern of pneumonia on admission. Currently on linezolid and Zosyn. Awaiting cultures. Blood culture 1/ bottles staph epidermidis, consistent with contamination. Status: Acute (3) Pulmonary edema: Clinically improved. X-ray not repeated today. Echocardiogram limited and of poor quality but EF appeared normal. Troponin elevation consistent with type II elevation. Secondary to recurrence with similar presentation in August may warrant cardiac evaluation prior to discharge. Cardiology has been consulted and they recommend nuclear stress testing prior to discharge. Status: Acute (4) Anemia: Chronic. Continue to follow. GI prophylaxis. Status: Acute (5) Chronic kidney disease: Renal function worsens from admission with diuresis. She did have IV contrast for CTA. This is consistent with acute kidney injury CK was checked and normal Check renal ultrasound Nephrology consultation Continue Fall Status: Acute (6) Hyperkalemia: Resolved Status: Acute (7) Elevated troponin: Type II elevation Status: Acute (8) Cerebellar cerebrovascular accident (CVA) without late effect: Past history of CVA. Continue Plavix, aspirin. Hold statin for now secondary to renal dysfunction. Status: Acute (9) Type 1 diabetes mellitus: Sliding scale insulin, low-dose long-acting insulin. Status: Acute Qualifiers: Diabetes mellitus complication status: with hyperglycemia Qualified Code(s): E10.65 - Type 1 diabetes mellitus with hyperglycemia (10) Generalized weakness: Chronic. Physical therapy has been ordered Status: Acute Plan Hypotension. Resolved. Yesterday she had vomiting, hypotension, and borderline hyperkalemia on admission. A cortisol level was checked and 2.17. Secondary to her history of weakness as well as the above symptomatology hydrocortisone was started. Hypotension and vomiting have resolved. Will change hydrocortisone to every 12 hours today, with high likelihood of changing to oral tomorrow if she continues to improve. This brings up the possibility of significant adrenal insufficiency, and will likely be discharging her on steroids for follow-up with endocrinology for differentiation of this. Multiple other medical problems as listed in the past medical history Full code Heparin will suffice for DVT prophylaxis. Attestations Medical Necessity Statement*: Needs continued hospitalization secondary to pneumonia requiring IV antibiotics, severe weakness, high likelihood of adrenal insufficiency, elevated troponin with pending cardiac work-up, acute kidney injury with worsening creatinine. Critical Care Time: The high probability of a clinically significant, sudden or life threatening deterioration of the patient's [renal, pulmonary, endocrine, cardiac system(s) required my full and direct attention, intervention and personal management. The critical care time is as shown. This time is in neel tion to time spent performing any reported procedures but includes the following: [x] Data and vital sign review and interpretation [x] Patient assessment, examination and intervention [x] Documentation [x] Medication orders and management Critical Care Time (min): 31 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 of Care Code Acute Photoengraving Helper for g Fwd Diagnoses Acute respiratory failure with hypoxia and hypercapnia J96.01; J96.02 Pneumonia J18.9 Pulmonary edema J81.1 Anemia D64.9 Chronic kidney disease N18.9 Hyperkalemia E87.5 Elevated troponin R77.8 Cerebellar cerebrovascular accident (CVA) without late effect Z86.73 Type 1 diabetes mellitus E10.65 Diabetes mellitus complication status: with hyperglycemia Generalized weakness R53.1
--- NOTE | 2021-12-06 10:05 | PC.CHAP ---
Pastoral Care Encounter/Spiritual Assessment Type of Contact [] Declined pier hand visit [] Patient/Family/Request visit [] Outpatient visit [] Follow-up visit [] Physician referral [] Code/Alert [x] Routine visit [] Staff referral [] Actively dying [] Patient sleeping [] Family support [] [] Out of room [] Palliative care [] [] Receiving care in room [] Pre-surgical visit [] Trauma [] Long length of stay [x] ICU visit [x] Other: setting up in chair Relational/Emotional Strength [] Patient feels connected with others/family/visitors/staff [] Distress [] Loneliness/isolation [] Abandonment Spirituality of Patient [] Person of Annette [] Attends [employer] of their Annette [] Believes in Prayer [] Reads Bible or Christianity materials [] There are Spiritual issues to be addressed Moderate Needs Teacher Interventions [x] Prayer [x] Active listening [x] Non-anxious presence [x] Spiritual/emotional support [] Crisis/trauma care [] Spiritual counseling [] Bereavement support [] Provided bereavement packet [] Provided Bible/devotional materials [] Provided toy/stuffed animal, coloring book to patient or family member [] Provided Communion [] Anointing/[place] [] Salvation [x] Completed spiritual assessment [] Other: Impact on Illness or Injury [] Angry [] Fearful [] Anxious [] Often cries [] Exhaustion [] Unable to work [] Unable to attend mormonism [] Unable to walk/stand [] Unable to read [] Unable to drive [] Unable to eat/drink [] Unable to sleep [] Unable to be with family [] Patient intubated [] Other: Summary patient feeling somewhat stronger... prayed for healing Time spent with patient 5 min
[2021-12-06 10:49] LABS: Glucose Point of Care 435 mg/dL (70-110)
--- NOTE | 2021-12-06 11:51 | PM.CONSULT ---
Providers/Reason For Consult Consulting Physician/Specialty*: Nephro Reason for Consult*: MARCELA Attending Physician: Ab Oro MD History of Present Illness History of Present Illness Thank you for consultation, today had the pleasure of reviewing this unfortunate 41-year-old female. She has had a difficult few years, in brief, she had a perinephric, complicated abscess back in 2017 resulting in multisystem organ failure, severe failure to thrive, subsequently required long-term care but was ultimately discharged home. In May she was found disheveled by her landlord doing very poorly, was subsequently hospitalized and committed to a long-term care facility. 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 [facility] now [facility] from the [facility] with increasing shortness of breath, rapid deterioration in the emergency room requiring intubation mechanical ventilation. Admission imaging demonstrates pneumonia with small bilateral pleural effusion. This was on a CTA. It was noted that there was worsening of her renal function over the last few days and hence this prompted consultation. Today she actually feels significantly better. She is breathing comfortably on 2 L nasal cannula. She is interactive. Wishes eat and drink. Some very mild edema but otherwise no significant hypervolemic symptoms. 175 mL of clear covarrubias urine in her Fall catheter bag since 7 AM this morning. She can remains on gentle IV hydration. No longer requires vasopressor agents. She is currently on combination antibiotics with Zosyn, Zyvox. Blood culture has only grown a staph epidermidis otherwise cultures remain negative. On admission serum creatinine 1.4 mg/dL, close to her baseline of 1.3 as seen during recent hospitalization. Today creeping up to 2.4 mg/dL. Apart from the IV contrast, no other obvious exposures to potentially nephrotoxic substances. Medications/Allergies Home Medications Medication Instructions Recorded Confirmed Last Taken Type metoprolol tartrate 25 mg tablet 12.5 mg PO BID@07/03/19 12/04/21 08/16/21 History pantoprazole 40 mg tablet,delayed 40 mg PO DAILY@07/03/19 12/04/21 08/16/21 History release paroxetine HCl 20 mg tablet (Paxil) 20 mg PO DAILY@07/03/19 12/04/21 08/16/21 History propylene glycol 0.6 % eye drops 1 drop OPHTHALMIC (EYE) Q12H PRN 07/03/19 12/04/21 Unknown History (Systane Balance) insulin aspart U-100 100 unit/mL See Rx Instructions .ROUTE .COMPLEX 08/16/21 12/04/21 Unknown History (3 mL) subcutaneous pen (Novolog Flexpen U-100 Insulin aspart) insulin glargine 100 unit/mL 15 unit SUBCUT DAILY@08/16/21 12/04/21 08/16/21 History subcutaneous solution (Lantus U-100 Insulin) magnesium hydroxide 400 mg/5 mL 30 ml PO DAILY PRN 08/16/21 12/04/21 Unknown History oral suspension (Milk of Magnesia) sennosides 8.6 mg-docusate sodium 1 tab-cap PO Q12H PRN 08/16/21 12/04/21 Unknown History 50 mg tablet (Senna-S) acetaminophen 325 mg tablet 650 mg PO Q6H PRN 12/04/21 12/04/21 Unknown History (Tylenol) alprazolam 0.25 mg tablet 0.25 mg PO Q24H PRN 12/04/21 12/04/21 Unknown History amlodipine 2.5 mg tablet 2.5 mg PO DAILY@12/04/21 12/04/21 Unknown History aspirin 81 mg tablet,delayed 81 mg PO DAILY@12/04/21 12/04/21 Unknown History release atorvastatin 80 mg tablet 80 mg PO DAILY@12/04/21 12/04/21 Unknown History bisacodyl 10 mg rectal suppository 10 mg RI DAILY PRN 12/04/21 12/04/21 Unknown History clopidogrel 75 mg tablet 75 mg PO DAILY@12/04/21 12/04/21 Unknown History ferrous sulfate 325 mg (65 mg 325 mg PO BID@12/04/21 12/04/21 Unknown History iron) tablet loperamide 2 mg tablet 2 mg PO PRN PRN MDD 4 tabs 12/04/21 12/04/21 Unknown History menthol 4 % topical gel (Biofreeze 1 applic TOPICAL Q4H PRN 12/04/21 12/04/21 Unknown History (menthol)) mirtazapine 7.5 mg tablet 7.5 mg PO BEDTIME@12/04/21 12/04/21 Unknown History ondansetron 4 mg disintegrating 4 mg PO Q8H PRN 12/04/21 12/04/21 Unknown History tablet polyethylene glycol 3350 17 gram 17 g PO DAILY PRN 12/04/21 12/04/21 Unknown History oral powder packet (Miralax) sodium phosphates 19 gram-7 118 ml RI DAILY PRN 12/04/21 12/04/21 Unknown History gram/118 mL enema (Enema) Allergies Allergy/AdvReac Type Severity Reaction Status Date / Time sulfamethoxazole Allergy Rash, Verified 12/04/21 09:56 [From Bactrim] wheezing trimethoprim [From Bactrim] Allergy Rash, Verified 12/04/21 09:56 wheezing Current Medications Generic Name Dose Route Start Last Admin Trade Name Freq PRN Reason Stop Dose Admin Acetaminophen 650 mg 12/04/21 13:03 12/05/21 20:43 Acetaminophen 325 Mg Tablet PO 650 mg Q6H PRN Administration MILD PAIN Albuterol/Ipratropium 3 ml 12/04/21 21:00 12/06/21 08:33 Ipratropium-Albuterol 3 Ml Neb INHALATION 3 ml Q6H SHARON Administration Aspirin 81 mg 12/04/21 09:55 12/06/21 08:21 Aspirin 81 Mg Ec Tablet PO 81 mg DAILY SHARON Administration Clopidogrel Bisulfate 75 mg 12/04/21 09:55 12/06/21 08:21 Clopidogrel 75 Mg Tablet PO 75 mg DAILY SHARON Administration Heparin Sodium (Porcine) 5,000 unit 12/04/21 13:15 12/06/21 02:08 Heparin 5,000 Unit/Ml Inj 1 Ml SUBCUT 5,000 unit Q12H SHARON Administration Piperacillin Sod/Tazobactam 50 mls @ 12.5 mls/hr 12/04/21 09:30 12/06/21 08:22 Sod 3.375 gm/ Sodium Chloride IV 12.5 mls/hr Q8H SHARON Administration Protocol Norepinephrine Bitartrate 4 mg 254 mls @ 0 mls/hr 12/04/21 20:45 12/05/21 11:00 / Dextrose IV 0 mcg/min .Q0M SHARON 0 mls/hr Titration Protocol Per Protocol Linezolid 600 mg in 300 mls @ 300 mls/hr 12/05/21 07:30 12/06/21 07:59 Zyvox Premix IV Infused Q12H SHARON Infusion Protocol Sodium Chloride 1,000 mls @ 50 mls/hr 12/06/21 08:30 12/06/21 08:31 Sodium Chloride 0.9% IV 50 mls/hr .Q20H SHARON Administration Insulin Glargine 10 unit 12/04/21 21:00 12/05/21 20:39 Insulin Glargine 100 Units/1 Ml SUBCUT Not Given BEDTIME SHARON Insulin Human Lispro 0 unit 12/05/21 18:00 12/06/21 11:29 Insulin Lispro 100 Unit/1 Ml SUBCUT 14 unit WM&BEDTIME SHARON Administration Protocol Lorazepam 0.5 mg 12/05/21 12:06 12/05/21 12:17 Lorazepam 2 Mg/Ml Inj 1 Ml IVP 0.5 mg Q4H PRN Administration ANXIETY Metoclopramide HCl 10 mg 12/05/21 15:55 12/05/21 16:31 Metoclopramide 5 Mg/Ml Sdv 2 Ml IVP 10 mg Q6H PRN Administration NAUSEA AND VOMITING Metoprolol Tartrate 12.5 mg 12/05/21 10:30 12/06/21 08:22 Metoprolol Tartrate 25 Mg Tablet PO 12.5 mg BID@0900,2100 SHARON Administration Ondansetron HCl 4 mg 12/04/21 13:03 12/05/21 14:26 Ondansetron 2 Mg/Ml Sdv 2 Ml IVP 4 mg Q6H PRN Administration NAUSEA AND VOMITING Pantoprazole Sodium 40 mg 12/04/21 09:55 12/06/21 09:24 Pantoprazole 40 Mg Sdv IVP 40 mg Q24H SHARON Administration Paroxetine HCl 20 mg 12/05/21 06:00 12/06/21 05:08 Paroxetine 20 Mg Tablet PO 20 mg QAM SHARON Administration PFSH Acute PFSH: Medical History Adult failure to thrive Aftercare following surgery of the genitourinary system Patient is a status post diagnostic laparoscopy with lysis of adhesions and appendectomy 2 weeks ago. No complications. Patient was counseled regarding pathology report showing acute appendicitis. Follow-up in 4 weeks Anemia Breast lump on right side at 9 o'clock position C. difficile colitis Cerebellar cerebrovascular accident (CVA) without late effect Chronic kidney disease Decubitus ulcers Generalized weakness MRSA (methicillin resistant staph aureus) culture positive Patient denies medical problems Perinephric abscess History of perinephric and retroperitoneal abscess with yeast in 2018, required percutaneous drainage and had complicated hospital course with respiratory failure, gram-negative pneumonia, thoracentesis, BiPAP therapy requirement, intolerance of oral intake, PEG tube placement, intolerance of tube feeds Secondary amenorrhea 39-year-old female with secondary amenorrhea. Progestin challenge test described Patient referred to the progestin challenge test she had a withdrawal bleeding from 05/07/2019 to 05/13/2019. Severe protein-calorie malnutrition Trichotillomania Type 1 diabetes mellitus Surgical History deliv NOS-unsp 1999 History of cholecystectomy 2011 History of tubal ligation 2000 S/P appendectomy S/P laparoscopy 05/20/2019- Diagnostic Laparoscopy, Lysis of Adhesions performed by Dr. Shah at [facility] Appendectomy performed by Dr. Robledo on 05/20/2019 Family History Grandmother Diabetes MATERNAL Cancer paternal Grandfather Heart disease maternal Cancer paternal Family/Other Breast cancer Paternal Aunt Social History Smoking and tobacco status: current every day smoker cigarettes Packs smoked per day: 1 Years cigarettes smoked: 28 Alcohol intake: never Additional social history: Well balanced diet Vitals/I&O/Wt Last Vital Signs Temp 98.3 F 12/06/21 08:00 Pulse 107 H 12/06/21 09:00 Resp 23 H 12/06/21 09:00 BP 118/75 12/06/21 10:00 Pulse Ox 97 12/06/21 10:00 12/05/21 12/06/21 12/06/21 22:59 06:59 14:59 Intake Total 450 / 2198.555 50 / 2248.555 1470 / 1470 Output Total 375 / 375 600 / 975 Balance 75 / 1823.555 -550 / 5072.860 6711 / 1470 Weight last 48 hrs Weight 61.961 kg Physical Exam Narrative: Constitutional: Awake, comfortable HEENT: Wet mucosa, no jvp, non icteric Lungs: Bilaterally clear without discernible wheeze, rales in all lung zones CVS: S1 S2, no murmurs Abdo: Soft, BS ok Ext 4: Minimal edema, peripheral perfusion with no cyanosis Neurological: Grossly non-focal Urinary Catheter Management: Fall: Cath Placed During This Visit: yes Reason for Continuing Indwelling Catheter: Accurate Measurement of Urinary Output in Critically Ill Patients Urinary Catheter Date of Insertion: 12/04/21 Urinary Catheter Time of Insertion: 05:00 Data : 12/06/21 02:33 12/06/21 02:33 Micro: Microbiology 12/04/21 10:06 Gram Stain - Final Sputum - Endotracheal Tube Aspirate Sputum Culture - Final 12/04/21 04:40 Blood Culture - Preliminary Blood Staphylococcus epidermidis A&P Assessment and plan (1) Chronic kidney disease: 1. Acute kidney injury Nonoliguric acute kidney injury, likely secondary to the intravenous contrast, differential diagnosis does include infection mediated glomerulopathy, acute interstitial nephritis would be less likely. Limited evaluation to include repeat urinalysis, urine protein quantification, fractional excretion of sodium/urea, CPK, uric acid Strict I's and O's Hopefully dialysis can be avoided Dose medication for GFR less than 30 Avoid usual nephrotoxins 2. Chemistry Appear to be well-balanced at this time, continue to monitor closely in the setting of acute kidney injury 3. Shortness of breath Improved, now at baseline oxygen requirements on 2 L nasal cannula which is what she uses at the nursing facility. Receiving empirical therapy for healthcare acquired pneumonia Cultures so far unrevealing. 4. Hemodynamics Blood pressure and pulse currently not adequately controlled without the need for vasopressor agents at this time. Thank you for consultation, as always it is a pleasure. 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
[2021-12-06 12:26] LABS: Creatine Phosphokinase 123 U/L (26-192); Uric Acid 5.8 mg/dL (2.4-5.7)
[2021-12-06 13:40] LABS: Creatinine Urine, Random 80 mg/dL (28-217)
[2021-12-06 13:48] LABS: Glucose Urine UA 2+ (Normal); Protein Urine 3+ (Negative); Specific Gravity, Urine 1.025 (1.005-1.030); Urine Appearance SL Hazy (CLEAR); Urine Color Yellow (Yellow); pH Urine 6.5 (5-7)
[2021-12-06 13:49] LABS: Add Urine Microscopic? YES; Bilirubin Urine Neg (Negative); Blood Urine 2+ (Negative); Ketones Urine Negative (Negative); Leukocyte Esterase Urine Trace (Negative); Nitrate Urine Positive (Negative); Urobilinogen Urine Norm (Negative)
[2021-12-06 14:11] LABS: Add Urine Culture? No; Amorphous Sediment Urine TRACE /hpf; Bacteria Urine 1+ /hpf; Mucus Urine TRACE /hpf; RBC Urine 0-4 /hpf (0-2); Squamous Epithelial Cell Urine 0-4 /hpf (0-5); WBC Urine 0-4 /hpf (0-5)
[2021-12-06 14:41] LABS: Urea Nitrogen,Urine Random 487 mg/dL
[2021-12-06 14:48] LABS: Urine Random Sodium < 10 mmol/L
[2021-12-06 16:39] LABS: Glucose Point of Care 308 mg/dL (70-110)
[2021-12-06] MEDS: acetaminophen 325 mg Tablet 650 MG PO ×2 (16:41→19:31)
[2021-12-06 17:38] LABS: Glucose Point of Care 291 mg/dL (70-110)
[2021-12-06] MEDS: linezolid premix 600 MG/300 ML PREMIX 200 MG IV (19:32)
[2021-12-06 20:23] LABS: Glucose Point of Care 378 mg/dL (70-110)
[2021-12-06] MEDS: LORazepam 2 mg/mL INJ 1 mL 0.5 MG IVP (20:24)
[2021-12-06] MEDS: insulin glargine 100 units/1 mL 10 UNIT SUBCUT (20:25)
--- NOTE | 2021-12-06 20:45 | PC.NURSE ---
Patient c/o feeling extremely anxious and clostrophobic in relation to having bipap in place. Heart elevated. RT in room increased FiO2 to 55% presently. Ativan 0.5mg IVP given as ordered prior to placing patient on bipap. Informed Dr Henao and received orders to stop fluids for now and to give an additional dose of Ativan 1mg IVP onetime.
[2021-12-06] MEDS: LORazepam 2 mg/mL INJ 1 mL 1 MG IVP (21:06)
--- NOTE | 2021-12-06 21:44 | PC.NURSE ---
Onetime dose of Ativan given as ordered and documented. Patient heart rate and SpO2 improved, HR 110s and SpO2 at 100% presently. Patient reports feeling much better at this time. Will continue to monitor.
[2021-12-07] VITALS (32 sets, daily range): BP systolic 124–170; BP diastolic 69–106; PULSE 100–126; RESP 12–21; TEMP 36.6–37; O2SAT 85–100
[2021-12-07] MEDS: piperacillin-tazobactam 3.375 GM in sodium chloride 0.9% (plus) 50 ML IV ×3 (00:58→17:53)
[2021-12-07] MEDS: heparin 5,000 unit/mL INJ 1 mL 5000 UNIT SUBCUT ×2 (00:58→12:17)
[2021-12-07] MEDS: ipratropium-albuterol 3 mL Neb INHALATION ×4 (02:06→20:19)
[2021-12-07 03:45] LABS: Basophils % 0.3 %; Hematocrit 25.5 % (37.0-47.0); Hemoglobin 8.3 g/dL (11.5-15.3); Lymphocytes # 0.8 10^3/uL (0.8-4.8); Lymphocytes % 12.7 %; Mean Corpuscular HGB Conc 32.5 g/dL (30.0-36.0); Mean Corpuscular Hemoglobin 27.9 pg (28.0-34.0); Mean Corpuscular Volume 85.6 fl (81-99); Mean Platelet Volume 10.5 fL (7.4-10.4); Monocytes # 0.4 10^3/uL (0.2-0.9); Monocytes % 7.1 %; Neutrophils # 4.94 10^3/uL (1.8-7.7); Neutrophils % 79.6 %; Nucleated Red Blood Cells % 0 %; Platelet Count 162 10^3/cmm (130-400); Red Blood Count 2.98 10^6/uL (4.1-5.3); Red Cell Distribution Width 13.7 % (12.1-15.1); White Blood Count 6.2 10^3/uL (4.0-10.0)
[2021-12-07 04:09] LABS: Alanine Aminotransferase 14 U/L (0-33); Albumin Level 2.9 g/dL (3.5-5.2); Alkaline Phosphatase 124 IU/L (35-105); Anion Gap 16.8 (5-19); Aspartate Amino Transferase 11 U/L (0-32); Blood Urea Nitrogen 59 mg/dL (6-20); Calcium 8.1 mg/dL (8.5-10.5); Carbon Dioxide 23 mmol/L (22-29); Chloride 101 mmol/L (98-107); Globulin 2.7 g/dL (1.3-4.6); Glomerular Filtration Rate 19.5 mL/min (90-130); Glucose 302 mg/dL (65-115); Magnesium 2.5 mg/dL (1.7-2.3); Osmolality Calculated 310 mOsm/kg (285-295); Potassium 4.8 mmol/L (3.5-5.1); Sodium 136 mmol/L (136-145); Total Bilirubin 0.2 mg/dL (0.15-1.2); Total Protein 5.6 g/dL (6.6-8.7)
--- NOTE | 2021-12-07 07:00 | XRR_ITS ---
PROCEDURE INFORMATION: Exam: XR Chest Exam date and time: 12/07/2021 5:14 AM Age: 41 years old Clinical indication: Condition or disease; Lung condition and disease; Respiratory failure; Status not specified; Patient HX: Patient on bipap. ; Additional info: Resp failure TECHNIQUE: Imaging protocol: XR of the chest. Views: 1 view. COMPARISON: CR XR chest 1V portable [id number] 12/05/2021 7:06 AM FINDINGS: Tubes, catheters and devices: Left-sided central venous line noted with the distal tip at the cavoatrial junction. Interval removal of previously noted endotracheal tube and enteric tube. Lungs: Persistent ground-glass opacities in the lung bases. Pleural spaces: Interval increased sharpness in the costophrenic angles with decreased opacities. Heart/Mediastinum: The cardiomediastinal silhouette is within normal limits. Bones/joints: Unremarkable. XR/XR chest 1V portable [id number] IMPRESSION: 1. Persistent ground-glass opacities in the lung bases, may be consistent with atelectasis and/or pulmonary edema. 2. Interval probable reduction in the pleural effusions.
[2021-12-07] MEDS: linezolid premix 600 MG/300 ML PREMIX 300 MG IV ×2 (07:05→21:10)
[2021-12-07] MEDS: hydrocortisone 100 mg/2 mL SDV IVP (07:05)
[2021-12-07] MEDS: PARoxetine 20 mg Tablet PO (07:05)
--- NOTE | 2021-12-07 07:37 | PC.NURSE ---
received report. reviewed poc and assumed care of patient. no needs identified at this time
--- NOTE | 2021-12-07 07:43 | PM.PN ---
Subjective Subjective: on BiPAP, off pressors Vitals/I&O/Wt Last Vital Signs Temp 97.7 F 12/06/21 19:37 Pulse 108 H 12/07/21 07:28 Resp 16 12/07/21 07:28 BP 124/69 12/07/21 04:00 Pulse Ox 97 12/07/21 07:28 12/06/21 12/07/21 12/07/21 22:59 06:59 14:59 Intake Total 1386.667 / 3266.667 50 / 3316.667 Output Total 300 / 300 Balance 1086.667 / 2966.667 50 / 3016.667 Physical Exam Urinary Catheter Management: Fall: Cath Placed During This Visit: yes Reason for Continuing Indwelling Catheter: Accurate Measurement of Urinary Output in Critically Ill Patients Urinary Catheter Date of Insertion: 12/04/21 Urinary Catheter Time of Insertion: 05:00 Data : 12/07/21 03:03 12/07/21 03:03 Other Labs: urine Na < 10, Ca 8.1, albumin 2.9, urine 3+ protein, 2+ blood, 0-4 RBC/HPF Micro: Microbiology 12/04/21 10:06 Gram Stain - Final Sputum - Endotracheal Tube Aspirate Sputum Culture - Final US: Radiologist's impression: 1. Hydronephrosis of the right kidney. 2. Normal-appearing left kidney. 3. Fall catheter noted in the urinary bladder. 4. 5.2 x 5.8 x 2.8. Centimeter cystic lesion in the left adnexa. A dedicated pelvic ultrasound could be considered for further workup if thought to be clinically warranted. 5. No solid or cystic renal mass. A&P Assessment and plan (1) Hydronephrosis: Status: Acute Plan seen via telemedicine with assistance of RN at bedside 1. Acute kidney injury, urine output 850 ml/24h per RN, urine sodium and FeNa consistent with prerenal state, can also be seen in contrast nephropathy. Proteinuria. CK and urine protein/Cr ratio ordered 2. Right hydronephrosis, recommend CT no contrast 3. Anemia. 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
[2021-12-07 08:40] LABS: Glucose Point of Care 413 mg/dL (70-110)
[2021-12-07] MEDS: pantoprazole 40 mg SDV IVP (09:02)
[2021-12-07] MEDS: metoprolol tartrate 25 mg Tablet 12.5 MG PO ×2 (09:03→21:10)
[2021-12-07] MEDS: aspirin 81 mg EC Tablet PO (09:03)
[2021-12-07] MEDS: insulin lispro 100 unit/1 mL SUBCUT ×4 (09:03→21:11)
[2021-12-07] MEDS: clopidogrel 75 mg Tablet PO (09:03)
[2021-12-07 09:30] LABS: Creatine Phosphokinase 123 U/L (26-192)
--- NOTE | 2021-12-07 11:19 | P.PN_ITS ---
Subjective Subjective: Mariana reports she is little more short of breath today. No pain. She has been using BiPAP more. She has not had significant urine output overnight, only around 300 cc. No chest discomfort. Medications: Reviewed: Yes Vitals/I&O/Wt Last Vital Signs Temp 97.7 F 12/06/21 19:37 Pulse 126 H 12/07/21 09:26 Resp 16 12/07/21 07:28 BP 124/69 12/07/21 04:00 Pulse Ox 92 12/07/21 09:26 12/06/21 12/07/21 12/07/21 22:59 06:59 14:59 Intake Total 1386.667 / 3266.667 50 / 3316.667 300.054 / 300.054 Output Total 300 / 300 Balance 1086.667 / 2966.667 50 / 3016.667 300.054 / 300.054 Physical Exam Narrative: General exam awake and conversive Neck is supple no lymphadenopathy or thyromegaly Cardiovascular slight tachycardia, no murmur Lungs coarse bilaterally Abdomen soft positive bowel sounds. No obvious organomegaly exam Fall is noted Extremities no cyanosis clubbing or edema, cap refill brisk Skin no rash Urinary Catheter Management: Fall: Cath Placed During This Visit: yes Reason for Continuing Indwelling Catheter: Accurate Measurement of Urinary Output in Critically Ill Patients Urinary Catheter Date of Insertion: 12/04/21 Urinary Catheter Time of Insertion: 05:00 Data : 12/07/21 03:03 12/07/21 03:03 Other Labs: Chest x-ray today with slight reduction in probable pulmonary edema. Renal ultrasound with concern of right hydronephrosis. I had urology review this and they believed it was likely present to some degree in August. Blood culture 07/04 bottles staph epidermidis consistent with contaminant Micro: Microbiology 12/04/21 10:06 Gram Stain - Final Sputum - Endotracheal Tube Aspirate Sputum Culture - Final A&P Assessment and plan (1) Acute respiratory failure with hypoxia and hypercapnia: Extubated December 06. Still requiring some BiPAP. This is likely secondary to fluid accumulation from renal failure. CTA performed no evidence of pulmonary embolism. Consistent with pneumonia and bilateral small pleural effusions right greater than left. COVID PCR negative. Note that she is typically on 2 L at all times at the nursing facility. Status: Acute (2) Pneumonia: Concern of pneumonia on admission. Currently on linezolid and Zosyn. MRSA PCR pending Blood culture 07/04 bottles staph epidermidis, consistent with contamination. Status: Acute (3) Pulmonary edema: Chest x-ray showed improvement. Echocardiogram limited and of poor quality but EF appeared normal. Troponin elevation consistent with type II elevation. Secondary to recurrence with similar presentation in August may warrant cardiac evaluation prior to discharge. Cardiology has been consulted and they recommend nuclear stress testing prior to discharge. Holding off on this today secondary to some worsening of her respiratory status. Status: Acute (4) Anemia: Chronic. Continue to follow. GI prophylaxis. Status: Acute (5) Chronic kidney disease: Renal function worsens from admission with diuresis. She did have IV contrast for CTA. This is consistent with acute kidney injury CK was checked and normal Renal ultrasound brought up with the concern of right hydronephrosis. I had urology review this and it appears similar to previous ultrasound. Will obtain CT renal protocol without dye Nephrology consultation appreciated Continue Fall Status: Acute (6) Hyperkalemia: Resolved Status: Acute (7) Elevated troponin: Type II elevation Status: Acute (8) Cerebellar cerebrovascular accident (CVA) without late effect: Past history of CVA. Continue Plavix, aspirin. Hold statin for now secondary to renal dysfunction. Status: Acute (9) Type 1 diabetes mellitus: Sliding scale insulin, low-dose long-acting insulin. Increase Lantus secondary to higher sugars. Status: Acute Qualifiers: Diabetes mellitus complication status: with hyperglycemia Qualified Code(s): E10.65 - Type 1 diabetes mellitus with hyperglycemia (10) Generalized weakness: Chronic. Physical therapy has been ordered Status: Acute Plan Hypotension. Resolved. Adrenal insufficiency. Cortisol level significantly low, and patient was hypotensive as well as vomiting. Hydrocortisone was added with good response. We will reduce hydrocortisone today to 50 mg every 8 hours, hopefully go to oral tomorrow if she clinically improves. This would also help her blood sugar substantially. Multiple other medical problems as listed in the past medical history Full code Heparin will suffice for DVT prophylaxis. Attestations Medical Necessity Statement*: Needs continued ICU care and hospitalization with worsening renal failure, now requiring BiPAP during the day. Critical Care Time: The high probability of a clinically significant, sudden or life threatening deterioration of the patient's [renal, cardiac, endocrine system(s) required my full and direct attention, intervention and personal management. The critical care time is as shown. 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 Fwd Diagnoses Acute respiratory failure with hypoxia and hypercapnia J96.01; J96.02 Pneumonia J18.9 Pulmonary edema J81.1 Anemia D64.9 Chronic kidney disease N18.9 Hyperkalemia E87.5 Elevated troponin R77.8 Cerebellar cerebrovascular accident (CVA) without late effect Z86.73 Type 1 diabetes mellitus E10.65 Diabetes mellitus complication status: with hyperglycemia Generalized weakness R53.1
[2021-12-07 11:45] LABS: Glucose Point of Care 345 mg/dL (70-110)
[2021-12-07 11:55] LABS: Creatinine Urine, Random 63 mg/dL (28-217)
[2021-12-07 12:27] LABS: Urine Protein Random 331 mg/dL
[2021-12-07] MEDS: LORazepam 2 mg/mL INJ 1 mL 0.5 MG IVP (13:32)
[2021-12-07] MEDS: FUROsemide 10 mg/mL SDV 10mL 60 MG IVP (13:35)
[2021-12-07 16:57] LABS: Glucose Point of Care 239 mg/dL (70-110)
[2021-12-07 17:22] LABS: Blood Urea Nitrogen 59 mg/dL (6-20); Calcium 8.5 mg/dL (8.5-10.5); Carbon Dioxide 23 mmol/L (22-29); Chloride 101 mmol/L (98-107); Glomerular Filtration Rate 21.3 mL/min (90-130); Glucose 222 mg/dL (65-115); Osmolality Calculated 305 mOsm/kg (285-295); Sodium 136 mmol/L (136-145)
--- NOTE | 2021-12-07 17:23 | P.PN_ITS ---
Subjective Subjective: Patient started having more labored breathing this morning. She was found to extensive wheezing bilaterally. Because of her unstable respiratory status, sestamibi stress test was postponed Medications: Medication Review Details: Current Medications Acetaminophen (Acetaminophen 325 Mg Tablet) 650 mg PO Q6H PRN PRN Reason: MILD PAIN Last Admin: 12/06/21 19:31 Dose: 650 mg Documented by: Albuterol/Ipratropium (Ipratropium-Albuterol 3 Ml Neb) 3 ml INHALATION Q6H SHARON Last Admin: 12/07/21 14:13 Dose: 3 ml Documented by: Aminophylline (Aminophylline 25 Mg/Ml Sdv 10 Ml) 25 mg IVP Q2M PRN PRN Reason: see dose instructions Stop: 12/08/21 06:12 Aspirin (Aspirin 81 Mg Ec Tablet) 81 mg PO DAILY [facility] Last Admin: 12/07/21 09:03 Dose: 81 mg Documented by: Clopidogrel Bisulfate (Clopidogrel 75 Mg Tablet) 75 mg PO DAILY HSARON Last Admin: 12/07/21 09:03 Dose: 75 mg Documented by: Dextrose (Dextrose 50% Syringe 50 Ml) 50 ml IVP PRN PRN; Protocol PRN Reason: hypoglycemia protocol Glucagon (Glucagon 1 Mg/Ml Inj 1 Ml) 1 mg IM ONCE PRN; Protocol PRN Reason: Adult Acute Hypoglycemia Prot. Heparin Sodium (Porcine) (Heparin 5,000 Unit/Ml Inj 1 Ml) 5,000 unit SUBCUT Q12H SHARON Last Admin: 12/07/21 12:17 Dose: 5,000 unit Documented by: Hydralazine HCl (Hydralazine 20 Mg/Ml Inj 1 Ml) 10 mg IVP Q4H PRN PRN Reason: spb>180 dbp >110 Hydrocortisone Sodium Succinate (Hydrocortisone 100 Mg/2 Ml Sdv) 50 mg IVP Q12H SHARON Piperacillin Sod/Tazobactam (Sod 3.375 gm/ Sodium Chloride) 50 mls @ 12.5 mls/ hr IV Q8H SHARON; Protocol Last Infusion: 12/07/21 13:24 Dose: Infused Documented by: Dextrose (D5w) 500 mls @ 100 mls/hr IV ONCE PRN; Protocol PRN Reason: Adult Acute Hypoglycemia Prot Linezolid (Zyvox Premix) 600 mg in 300 mls @ 300 mls/hr IV Q12H SHARON; Protocol Last Infusion: 12/07/21 10:47 Dose: Infused Documented by: Insulin Glargine (Insulin Glargine 100 Units/1 Ml) 14 unit SUBCUT BEDTIME [facility] Insulin Human Lispro (Insulin Lispro 100 Unit/1 Ml) 0 unit SUBCUT WM&BEDTIME [facility]; Protocol Last Admin: 12/07/21 12:17 Dose: 10 unit Documented by: Lorazepam (Lorazepam 2 Mg/Ml Inj 1 Ml) 0.5 mg IVP Q4H PRN PRN Reason: ANXIETY Last Admin: 12/07/21 13:32 Dose: 0.5 mg Documented by: Lorazepam (Lorazepam 2 Mg/Ml Inj 1 Ml) 1 mg IVP ONCE PRN PRN Reason: ANXIETY Last Admin: 12/06/21 21:06 Dose: 1 mg Documented by: Metoclopramide HCl (Metoclopramide 5 Mg/Ml Sdv 2 Ml) 10 mg IVP Q6H PRN PRN Reason: NAUSEA AND VOMITING Last Admin: 12/05/21 16:31 Dose: 10 mg Documented by: Metoprolol Tartrate (Metoprolol Tartrate 25 Mg Tablet) 12.5 mg PO BID@0900,2100 [facility] Last Admin: 12/07/21 09:03 Dose: 12.5 mg Documented by: Nitroglycerin (Nitroglycerin 0.4 Mg Sublingual Tablet) 0.4 mg SUBLINGUAL Q5M PRN PRN Reason: CHEST PAIN Stop: 12/08/21 06:12 Ondansetron HCl (Ondansetron 2 Mg/Ml Sdv 2 Ml) 4 mg IVP Q6H PRN PRN Reason: NAUSEA AND VOMITING Last Admin: 12/05/21 14:26 Dose: 4 mg Documented by: Ondansetron HCl (Ondansetron 2 Mg/Ml Sdv 2 Ml) 4 mg IVP Q2M PRN PRN Reason: NAUSEA Pantoprazole Sodium (Pantoprazole 40 Mg Sdv) 40 mg IVP Q24H [facility] Last Admin: 12/07/21 09:02 Dose: 40 mg Documented by: Paroxetine HCl (Paroxetine 20 Mg Tablet) 20 mg PO QAM [facility] Last Admin: 12/07/21 07:05 Dose: 20 mg Documented by: Regadenoson (Regadenoson 0.4 Mg/5 Ml Syringe) 0.4 mg IVP ONCE PRN PRN Reason: Lexiscan Stress Test Vitals/I&O/Wt Last Vital Signs Temp 97.7 F 12/06/21 19:37 Pulse 109 H 12/07/21 15:00 Resp 20 H 12/07/21 15:00 BP 146/86 12/07/21 15:00 Pulse Ox 97 12/07/21 15:00 12/07/21 12/07/21 12/07/21 06:59 14:59 22:59 Intake Total 50 / 3316.667 350.054 / 350.054 Balance 50 / 3016.667 350.054 / 350.054 Physical Exam Narrative: GENERAL: The patient is alert and oriented times three. Slightly tachypneic HEENT: No significant pallor, icterus or lymphadenopathy.Oral cavity: There are no mucous membrane lesions. NECK: Trachea appears to be central. No masses noted. No JVD or thyromegaly appreciated. RESPIRATORY: Chest is symmetrical. Accessory muscle activation is present extensive bilateral expiratory wheezing and some coarse crackles. BREASTS: Deferred. HEART: The heart sounds are normal.? No S3 or S4. ? No significant murmurs.? No pericardial rub ABDOMEN: No vessel pulsations or distention. No tenderness. No organomegaly appreciated.? Bowel sounds are normally heard. : Deferred. RECTAL: Deferred. LYMPHATIC: No lymphadenopathy noted in the neck. EXTREMITIES: No edema or cyanosis. No clubbing. MUSCULOSKELETAL: No acute joint deformities or swelling SKIN: There are no significant rashes or ecchymosis NEUROPSYCHIATRIC: The patient is alert and oriented x3. Appears to be in a good mood. No tremors or rigidity noted. Urinary Catheter Management: Fall: Cath Placed During This Visit: yes Reason for Continuing Indwelling Catheter: Accurate Measurement of Urinary Output in Critically Ill Patients Urinary Catheter Date of Insertion: 12/04/21 Urinary Catheter Time of Insertion: 05:00 Data : 12/07/21 03:03 12/07/21 16:53 Other Labs: Laboratory Last Values WBC 6.2 10^3/uL (4.0-10.0) 12/07/21 03:03 RBC 2.98 10^6/uL (4.1-5.3) L 12/07/21 03:03 Hgb 8.3 g/dL (11.5-15.3) L 12/07/21 03:03 Hct 25.5 % (37.0-47.0) L 12/07/21 03:03 MCV 85.6 fl (81-99) 12/07/21 03:03 MCH 27.9 pg (28.0-34.0) L 12/07/21 03:03 MCHC 32.5 g/dL (30.0-36.0) 12/07/21 03:03 RDW 13.7 % (12.1-15.1) 12/07/21 03:03 Plt Count 162 10^3/cmm (130-400) 12/07/21 03:03 MPV 10.5 fL (7.4-10.4) H 12/07/21 03:03 Neut % (Auto) 79.6 % 12/07/21 03:03 Lymph % (Auto) 12.7 % 12/07/21 03:03 Cameron % (Auto) 7.1 % 12/07/21 03:03 Eos % (Auto) 0.0 % 12/07/21 03:03 Baso % (Auto) 0.3 % 12/07/21 03:03 Neut # (Auto) 4.94 10^3/uL (1.8-7.7) 12/07/21 03:03 Lymph # (Auto) 0.8 10^3/uL (0.8-4.8) 12/07/21 03:03 Cameron # (Auto) 0.4 10^3/uL (0.2-0.9) 12/07/21 03:03 Eos # (Auto) 0.0 10^3/uL (0.0-0.8) 12/07/21 03:03 Baso # (Auto) 0.0 10^3/uL (0.0-0.1) 12/07/21 03:03 Nucleated RBC % (auto) 0 % 12/07/21 03:03 Nucleated RBCs # 0.0 /100WBC 12/07/21 03:03 D-Dimer 2.91 ug/mIFEU (0-0.59) H 12/04/21 08:53 Specimen Type Arterial 12/05/21 16:17 Sample Site Radial, left 12/05/21 16:17 ABG pH 7.26 (7.35-7.45) L 12/05/21 16:17 ABG pCO2 54.3 mmHg (35-45) H 12/05/21 16:17 ABG pO2 73.9 mmHg (80.0-100.0) L 12/05/21 16:17 ABG HCO3 24.6 mmol/L (22-26) 12/05/21 16:17 ABG O2 Saturation 88.5 12/05/21 13:41 ABG Base Excess -2.7 mmol/L (-2.0-2.0) L 12/05/21 16:17 Kaushik Test Pos 12/05/21 16:17 A-a O2 Gradient 11.7 mmHg (5-10) H 12/05/21 13:41 Hematocrit 28.8 % (37-47) L 12/05/21 16:17 Hgb O2 Saturation 86.9 % (95-100) L 12/05/21 13:41 Carboxyhemoglobin 1.0 %THgb (0.4-20.1) 12/05/21 13:41 Methemoglobin 0.8 % (0.4-1.5) 12/05/21 13:41 Total Hemoglobin 9.9 g/dL (12-16) L 12/05/21 13:41 Sodium 138.0 mmol/L (131-143) 12/05/21 13:41 Potassium 4.9 mmol/L (3.5-5.0) 12/05/21 13:41 Glucose 157.0 mg/dL (70-115) H 12/05/21 13:41 Ionized Calcium 1.2 mmol/L (1.1-1.4) 12/05/21 13:41 O2 Delivery Device Nc 12/05/21 16:17 O2 Liters/Min 4.0 % 12/05/21 16:17 FiO2 36.0 % 12/05/21 16:17 Tidal Volume 0.40 12/05/21 04:00 PEEP 5.0 cmH20 12/05/21 04:00 Warehouse Technician ID Cak 12/05/21 16:17 Sodium 136 mmol/L (136-145) 12/07/21 16:53 Potassium 4.0 mmol/L (3.5-5.1) 12/07/21 16:53 Chloride 101 mmol/L (98-107) 12/07/21 16:53 Carbon Dioxide 23 mmol/L (22-29) 12/07/21 16:53 Anion Gap 16.0 (5-19) 12/07/21 16:53 BUN 59 mg/dL (6-20) H 12/07/21 03:03 Creatinine 2.7 mg/dL (0.5-0.9) H 12/07/21 03:03 GFR Calculation 19.5 mL/min (90-130) L 12/07/21 03:03 Glucose 302 mg/dL (65-115) H 12/07/21 03:03 POC Glucose 239 mg/dL (70-110) H 12/07/21 16:54 Calculated Osmolality 310 mOsm/kg (285-295) H 12/07/21 03:03 Lactic Acid 0.6 mmol/L (0.5-2.2) 12/04/21 04:40 Uric Acid 5.8 mg/dL (2.4-5.7) H 12/06/21 02:33 Calcium 8.5 mg/dL (8.5-10.5) 12/07/21 16:53 Magnesium 2.5 mg/dL (1.7-2.3) H 12/07/21 03:03 Total Bilirubin 0.2 mg/dL (0.15-1.2) 12/07/21 03:03 AST 11 U/L (0-32) 12/07/21 03:03 ALT 14 U/L (0-33) 12/07/21 03:03 Alkaline Phosphatase 124 IU/L (35-105) H 12/07/21 03:03 Creatine Kinase 123 U/L (26-192) 12/07/21 08:41 Troponin T Baseline 51 ng/L (0-10) H 12/04/21 04:40 Troponin T 120 Minute 56.39 ng/L (0-10) H 12/04/21 06:39 Delta Troponin T 5.39 ABS# (0-10) 12/04/21 06:39 Troponin T Hi Sens 6Hr 62.85 ng/L (0-10) H 12/04/21 10:49 Troponin T Hi Sens 6Hr Delta 11.85 ng/L (0-12) 12/04/21 10:49 C-Reactive Protein 4.9 mg/L (0.0-4.9) 12/04/21 04:40 NT-Pro-B Natriuret Pep 4152 pg/mL (0-125) H 12/04/21 04:40 Total Protein 5.6 g/dL (6.6-8.7) L 12/07/21 03:03 Albumin 2.9 g/dL (3.5-5.2) L 12/07/21 03:03 Globulin 2.7 g/dL (1.3-4.6) 12/07/21 03:03 Procalcitonin 0.58 ng/mL (0-0.5) H 12/04/21 04:40 TSH 3.05 uIU/mL (0.27-4.20) 12/05/21 03:36 Ser , Semi-Qnt 0.50 mIU/mL 12/07/21 03:03 Random Cortisol 2.17 ug/dL (2.47-19.5) L 12/05/21 03:36 Urine Color Yellow (Yellow) 12/06/21 12:27 Urine Appearance Sl hazy (CLEAR) 12/06/21 12:27 Urine pH 6.5 (5-7) 12/06/21 12:27 Ur Specific [place] 1.025 (1.005-1.030) 12/06/21 12:27 Urine Protein 3+ (Negative) H 12/06/21 12:27 Urine Glucose (UA) 2+ (Normal) H 12/06/21 12:27 Urine Ketones Negative (Negative) 12/06/21 12:27 Urine Blood 2+ (Negative) H 12/06/21 12:27 Urine Nitrate Positive (Negative) H 12/06/21 12:27 Urine Bilirubin Neg (Negative) 12/06/21 12:27 Urine Urobilinogen Norm mg/dL (Negative) 12/06/21 12:27 Ur Leukocyte Esterase Trace (Negative) H 12/06/21 12:27 Urine RBC 0-4 /hpf (0-2) H 12/06/21 12:27 Urine WBC 0-4 /hpf (0-5) H 12/06/21 12:27 Ur Squamous Epith Cells 0-4 /hpf (0-5) H 12/06/21 12:27 Amorphous Sediment Trace /hpf 12/06/21 12:27 Urine Bacteria 1+ /hpf (NONE) H 12/06/21 12:27 Hyaline Casts 0-4 /lpf H 12/04/21 04:58 Coarse Granular Casts 0-4 /lpf H 12/04/21 04:58 Urine Mucus Trace /hpf 12/06/21 12:27 U Random Total Protein 331 mg/dL 12/07/21 11:00 Ur Random Sodium < 10 mmol/L 12/06/21 12:27 Ur Random Urea Nitrogn 487 mg/dL 12/06/21 12:27 Urine Creatinine 63 mg/dL (28-217) 12/07/21 11:00 Coronavirus 229E (PCR) Not detected (NOT DETECT) 12/04/21 06:30 SARS-CoV-2 (PCR) Not detected (NOT DETECT) 12/04/21 06:30 A&P Assessment and plan (1) Elevated troponin: The patient was found to have elevated troponin T with 6 hours delta of 11.85. This could suggest a non-ST elevation myocardial infarction. Her EKG from today revealed a sinus rhythm with a diffuse nonspecific ST changes. Possible left atrial enlargement. Nonspecific T wave changes in the high lateral leads. Apparently she never had any chest pain. To evaluate for underlying coronary ischemia, a myocardial perfusion imaging would be appropriate. in view of the respiratiory status, we may hold off on this for the time being Status: Acute (2) Acute respiratory failure with hypoxia and hypercapnia: Patient has an element of diastolic heart failure and respiratory decompensation. Continue careful IV diuresis Status: Acute (3) Type 1 diabetes mellitus: May continue on the current medications. Status: Acute Qualifiers: Diabetes mellitus complication status: with hyperglycemia Qualified Code(s): E10.65 - Type 1 diabetes mellitus with hyperglycemia (4) Chronic kidney disease: Patient is a kidney function seems to be getting worse. Nephrology is consulted. Status: Acute (5) Pneumonia: Patient is on IV of antibiotics. Management as per the primary Status: Acute (6) Anemia: Etiology of anemia is not clear. Patient may benefit from endoscopic studies. Status: Acute (7) Hypertension: Status: Acute Plan The myocardial perfusion imaging is postponed. Based on her respiratory status, will be rescheduled this test. May continue the diuresis on a as needed basis. Amlodipine 2.5 mg p.o. daily, to better control the blood pressure. Attestations Medical Necessity Statement*: Patient requires continued hospital stay for close monitoring and further management 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 of Care Code Acute Home Health Clinical Supervisor for Chg Fwd Diagnoses Elevated troponin R77.8 Acute respiratory failure with hypoxia and hypercapnia J96.01; J96.02 Type 1 diabetes mellitus E10.65 Diabetes mellitus complication status: with hyperglycemia Chronic kidney disease N18.9 Pneumonia J18.9 Anemia D64.9 Hypertension I10
[2021-12-07] MEDS: hydrocortisone 100 mg/2 mL SDV 50 MG IVP (17:54)
[2021-12-07] MEDS: amlodipine 5 mg Tablet 2.5 MG PO (18:35)
[2021-12-07 20:50] LABS: Glucose Point of Care 218 mg/dL (70-110)
[2021-12-07] MEDS: insulin glargine 100 units/1 mL 14 UNIT SUBCUT (21:12)
[2021-12-08] VITALS (31 sets, daily range): BP systolic 129–167; BP diastolic 79–103; PULSE 99–119; RESP 11–26; TEMP 36.7–37.1; O2SAT 90–99
[2021-12-08] MEDS: piperacillin-tazobactam 3.375 GM in sodium chloride 0.9% (plus) 50 ML IV ×3 (01:00→17:37)
[2021-12-08] MEDS: heparin 5,000 unit/mL INJ 1 mL 5000 UNIT SUBCUT ×2 (01:01→13:23)
[2021-12-08] MEDS: ipratropium-albuterol 3 mL Neb INHALATION ×4 (02:20→20:32)
[2021-12-08] MEDS: hydrocortisone 100 mg/2 mL SDV 50 MG IVP (06:17)
[2021-12-08] MEDS: PARoxetine 20 mg Tablet PO (06:17)
[2021-12-08 06:18] LABS: Basophils % 0.3 %; Eosinophils % 0.2 %; Hematocrit 26.1 % (37.0-47.0); Hemoglobin 8.1 g/dL (11.5-15.3); Lymphocytes % 15.8 %; Mean Corpuscular Hemoglobin 27.4 pg (28.0-34.0); Mean Corpuscular Volume 88.2 fl (81-99); Mean Platelet Volume 10.6 fL (7.4-10.4); Monocytes # 0.5 10^3/uL (0.2-0.9); Monocytes % 7.8 %; Neutrophils # 4.74 10^3/uL (1.8-7.7); Neutrophils % 75.4 %; Nucleated Red Blood Cells % 0 %; Platelet Count 172 10^3/cmm (130-400); Red Blood Count 2.96 10^6/uL (4.1-5.3); Red Cell Distribution Width 13.9 % (12.1-15.1); White Blood Count 6.3 10^3/uL (4.0-10.0)
[2021-12-08 06:42] LABS: Alanine Aminotransferase 12 U/L (0-33); Albumin Level 2.9 g/dL (3.5-5.2); Alkaline Phosphatase 112 IU/L (35-105); Anion Gap 13.8 (5-19); Aspartate Amino Transferase 8 U/L (0-32); Blood Urea Nitrogen 53 mg/dL (6-20); Calcium 8.2 mg/dL (8.5-10.5); Carbon Dioxide 25 mmol/L (22-29); Chloride 103 mmol/L (98-107); Globulin 2.4 g/dL (1.3-4.6); Glomerular Filtration Rate 24.7 mL/min (90-130); Glucose 254 mg/dL (65-115); Magnesium 2.4 mg/dL (1.7-2.3); Osmolality Calculated 309 mOsm/kg (285-295); Potassium 3.8 mmol/L (3.5-5.1); Sodium 138 mmol/L (136-145); Total Bilirubin 0.2 mg/dL (0.15-1.2); Total Protein 5.3 g/dL (6.6-8.7)
--- NOTE | 2021-12-08 07:11 | P.PN_ITS ---
Subjective Subjective: breathing better Vitals/I&O/Wt Last Vital Signs Temp 98.4 F 12/08/21 04:00 Pulse 102 H 12/08/21 06:00 Resp 20 H 12/08/21 06:00 BP 157/94 12/08/21 06:00 Pulse Ox 95 12/08/21 06:00 12/07/21 12/08/21 12/08/21 22:59 06:59 14:59 Intake Total 350 / 700.054 50 / 750.054 Output Total 2500 / 2500 450 / 2950 Balance -2150 / -1799.946 -400 / -2199.946 Weight last 48 hrs Weight 64.455 kg Physical Exam Urinary Catheter Management: Fall: Cath Placed During This Visit: yes Reason for Continuing Indwelling Catheter: Accurate Measurement of Urinary Output in Critically Ill Patients Urinary Catheter Date of Insertion: 12/04/21 Urinary Catheter Time of Insertion: 05:00 Data : 12/08/21 04:10 12/08/21 04:10 Other Labs: CK normal urine protein/Cr ratio 5253 mg/g CT Abd/Pel: Radiologist's impression: no hydronephrosis, anasarca, bilateral pleural effusions A&P Assessment and plan (1) Diabetic nephropathy: Status: Acute Plan seen via telemedicine with assistance of RN at bedside 1. Acute kidney injury, 3L urine output in response to 60 mg IV lasix. Serum Cr improved. urine sodium and FeNa consistent with prerenal state, can also be seen in contrast nephropathy. 2. Nephrotic range proteinuria. Most likely diabetic nephropathy. Can order [id number] for membranous nephropathy. Proteinuria existed in 2019. Will need outpatient nephrology follow-up for consideration of renal biopsy. 3. Right hydronephrosis not seen on CT 4. Anemia. Check iron studies Attestations Medical Necessity Statement*: per primary service Time Spent in Patient Care: 16 - 35 minutes 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 of Care Code Acute Freezer Tunnel Operator for Bubba Gates Diagnoses Diabetic nephropathy E11.21
[2021-12-08 07:24] LABS: Glucose Point of Care 218 mg/dL (70-110)
[2021-12-08] MEDS: linezolid premix 600 MG/300 ML PREMIX 300 MG IV ×2 (07:59→19:39)
[2021-12-08] MEDS: insulin lispro 100 unit/1 mL SUBCUT ×3 (07:59→20:49)
[2021-12-08 08:22] LABS: Ferritin 101 ng/mL (15-150); Iron 51 ug/dL (37-145); Percent Saturation 23.3 % (20-50); Total Iron Binding Capacity 218 mcg/dl; Unsaturated Iron Binding 167 ug/dL (112-347)
[2021-12-08] MEDS: pantoprazole 40 mg SDV IVP (09:05)
[2021-12-08] MEDS: clopidogrel 75 mg Tablet PO (09:05)
[2021-12-08] MEDS: hydrocortisone 10 mg Tablet 20 MG PO (09:06)
[2021-12-08] MEDS: amlodipine 5 mg Tablet 2.5 MG PO (09:06)
[2021-12-08] MEDS: aspirin 81 mg EC Tablet PO (09:06)
[2021-12-08] MEDS: metoprolol tartrate 25 mg Tablet 12.5 MG PO (09:06)
--- NOTE | 2021-12-08 09:20 | P.PN_ITS ---
Subjective Subjective: Mariana reports she is feeling a little bit better today. No nausea or vomiting. No chest pain. When taken off BiPAP she denies shortness of breath immediately as she did yesterday. Medications: Reviewed: Yes Vitals/I&O/Wt Last Vital Signs Temp 98.4 F 12/08/21 04:00 Pulse 117 H 12/08/21 08:47 Resp 24 H 12/08/21 08:00 BP 157/94 12/08/21 06:00 Pulse Ox 94 12/08/21 08:00 12/07/21 12/08/21 12/08/21 22:59 06:59 14:59 Intake Total 350 / 700.054 50 / 750.054 Output Total 2500 / 2500 450 / 2950 Balance -2150 / -1799.946 -400 / -2199.946 Weight last 48 hrs Weight 64.455 kg Physical Exam Narrative: General exam awake and conversive Neck is supple no lymphadenopathy or thyromegaly Cardiovascular slight tachycardia, no murmur Lungs improved aeration, less coarse, no crackles Abdomen soft positive bowel sounds. No obvious organomegaly exam Fall is noted Extremities no cyanosis clubbing or edema, cap refill brisk Skin no rash Urinary Catheter Management: Fall: Cath Placed During This Visit: yes Reason for Continuing Indwelling Catheter: Accurate Measurement of Urinary Output in Critically Ill Patients Urinary Catheter Date of Insertion: 12/04/21 Urinary Catheter Time of Insertion: 05:00 Data : 12/08/21 04:10 12/08/21 04:10 A&P Assessment and plan (1) Acute respiratory failure with hypoxia and hypercapnia: Extubated December 06. Still requiring some BiPAP. This is likely secondary to fluid accumulation from renal failure. CTA performed no evidence of pulmonary embolism. Consistent with pneumonia and bilateral small pleural effusions right greater than left. COVID PCR negative. Note that she is typically on 2 L at all times at the nursing facility. Today breathing status is improved. She has diuresed 2200 cc. Hopefully she can stay off BiPAP. Status: Acute (2) Pneumonia: Concern of pneumonia on admission. Currently on linezolid and Zosyn. MRSA PCR still pending Blood culture 07/04 bottles staph epidermidis, consistent with contamination. Status: Acute (3) Pulmonary edema: Echocardiogram limited and of poor quality but EF appeared normal. Troponin elevation consistent with type II elevation. Secondary to recurrence with similar presentation in August may warrant cardiac evaluation prior to discharge. Cardiology has been consulted and they recommend nuclear stress testing prior to discharge. Improved today, in this patient who had good diuresis after 60 mg of Lasix given on December 07 secondary to worsening respiratory difficulty. Status: Acute (4) Anemia: Chronic. Continue to follow. GI prophylaxis. Status: Acute (5) Chronic kidney disease: Renal function improved today. She did have IV contrast for CTA. This is consistent with acute kidney injury CK was checked and normal Renal ultrasound brought up with the concern of right hydronephrosis. I had urology review this and it appears similar to previous ultrasound. CT renal protocol does not demonstrate hydronephrosis Nephrology consultation appreciated Continue Fall Status: Acute (6) Hyperkalemia: Resolved Status: Acute (7) Elevated troponin: Type II elevation Status: Acute (8) Cerebellar cerebrovascular accident (CVA) without late effect: Past history of CVA. Continue Plavix, aspirin. Hold statin for now secondary to renal dysfunction. As renal function improves this will need to be readded. Status: Acute (9) Type 1 diabetes mellitus: Sliding scale insulin, low-dose long-acting insulin. Status: Acute Qualifiers: Diabetes mellitus complication status: with hyperglycemia Qualified Code(s): E10.65 - Type 1 diabetes mellitus with hyperglycemia (10) Generalized weakness: Chronic. Physical therapy has been ordered Status: Acute (11) Adrenal insufficiency: Significantly hypotensive on admission, with significant vomiting and mild hyperkalemia on admission. Cortisol level was significantly low for situation, and hydrocortisone initiated. She has severe weakness, atypical for someone her age so cannot completely rule out adrenal insufficiency going on for some time. Hydrocortisone initially was 100 mg IV every 8 hours and has been weaned. We will go to p.o. today. This should also help blood sugars. Consider outpatient endocrine referral, who can formally change her to dexamethasone in the future and perform ACTH stimulation Status: Acute Plan Hypotension, resolved Multiple other medical problems as listed in the past medical history Full code Heparin will suffice for DVT prophylaxis. May transfer to stepdown Attestations Medical Necessity Statement*: Needs continued hospitalization for close follow-up of acute kidney injury, pneumonia, elevated troponin in this patient with respiratory failure which is improving. 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 of Care Code Acute Camera Tuning Engineer for Chg Fwd Diagnoses Acute respiratory failure with hypoxia and hypercapnia J96.01; J96.02 Pneumonia J18.9 Pulmonary edema J81.1 Anemia D64.9 Chronic kidney disease N18.9 Hyperkalemia E87.5 Elevated troponin R77.8 Cerebellar cerebrovascular accident (CVA) without late effect Z86.73 Type 1 diabetes mellitus E10.65 Diabetes mellitus complication status: with hyperglycemia Generalized weakness R53.1 Adrenal insufficiency E27.40
--- NOTE | 2021-12-08 10:23 | PC.CHAP ---
Pastoral Care Encounter/Spiritual Assessment Type of Contact [] Declined grinding machine operator portable visit [] Patient/Family/Request visit [] Outpatient visit [] Follow-up visit [] Physician referral [] Code/Alert [x] Routine visit [] Staff referral [] Actively dying [] Patient sleeping [] Family support [] [] Out of room [] Palliative care [] [] Receiving care in room [] Pre-surgical visit [] Trauma [] Long length of stay [x] ICU visit [] Other: Relational/Emotional Strength [] Patient feels connected with others/family/visitors/staff [] Distress [] Loneliness/isolation [] Abandonment Spirituality of Patient [] Person of Annette [] Attends Yazidi of their Annette [] Believes in Prayer [] Reads Bible or Rastafari materials [] There are Spiritual issues to be addressed Roving Inspector Interventions [x] Prayer [x] Active listening [x] Non-anxious presence [x] Spiritual/emotional support [] Crisis/trauma care [] Spiritual counseling [] Bereavement support [] Provided bereavement packet [] Provided Bible/devotional materials [] Provided toy/stuffed animal, coloring book to patient or family member [] Provided Communion [] Anointing/[place] [] Salvation [x] Completed spiritual assessment [] Other: Impact on Illness or Injury [] Angry [] Fearful [] Anxious [] Often cries [] Exhaustion [] Unable to work [] Unable to attend druze [] Unable to walk/stand [] Unable to read [] Unable to drive [] Unable to eat/drink [] Unable to sleep [] Unable to be with family [] Patient intubated [] Other: Summary still having issues breathing.... prayed for strength and healing Time spent with patient 5 min
[2021-12-08 10:56] LABS: Glucose Point of Care 155 mg/dL (70-110)
--- NOTE | 2021-12-08 11:21 | CTR_ITS ---
PROCEDURE INFORMATION: Exam: CT Abdomen And Pelvis Without Contrast Exam date and time: 12/08/2021 8:36 AM Age: 41 years old Clinical indication: Abnormal findings; Abnormal lab test; Abnormal kidney function lab tests; Prior surgery; Surgery type: Gb, appy, ; Additional info: Renalfailure, hydronephrosis, not done 12/07, date modified to 12/08 TECHNIQUE: Imaging protocol: Computed tomography of the abdomen and pelvis without contrast. COMPARISON: CT abdomen pelvis w con* [id number] 06/26/2021 3:56 PM RADIATION DOSE METRICS: Total DLP (mGy-cm): 709.52 FINDINGS: Pleural spaces: Moderate bilateral pleural effusions. Bibasilar atelectasis. Heart: The heart is not enlarged. Small pericardial effusion. Liver: The liver is enlarged with a length of 18 cm. Gallbladder and bile ducts: Cholecystectomy. Normal bile ducts. Pancreas: Normal. No ductal dilation. Spleen: Normal. No splenomegaly. Adrenal glands: Normal. No mass. Kidneys and ureters: Normal. No hydronephrosis. Stomach and bowel: Unremarkable. No obstruction. No mucosal thickening. Appendix: No evidence of appendicitis. Intraperitoneal space: Unremarkable. No free air. No significant fluid collection. Vasculature: There is calcification of the abdominal aorta. No abdominal aortic aneurysm. Lymph nodes: Unremarkable. No enlarged lymph nodes. Urinary bladder: The urinary bladder is collapsed around a Fall catheter. Reproductive: Unremarkable as visualized. Bones/joints: Unremarkable. No acute fracture. Soft tissues: There is subcutaneous edema around the abdomen and pelvis consistent with anasarca. CT/CT kidney stone [id number] IMPRESSION: 1. Moderate bilateral pleural effusions with basilar atelectasis. 2. Small pericardial effusion. 3. Hepatomegaly. 4. Subcutaneous edema around the abdomen consistent with anasarca. 5. No acute abnormalities are seen within the abdomen and pelvis.
--- NOTE | 2021-12-08 13:00 | PC.NURSE ---
Patient dislodged right EJ IV access while scratching her neck. Manual pressure held to site with 2x2 dressing. Dr. Oro in ICU and came to room to visualize site.
--- NOTE | 2021-12-08 16:49 | P.PN_ITS ---
Subjective Subjective: Patient has intermittent respiratory distress. For this reason, stress testing was canceled. She had a CT of the abdomen today. She was found to have moderate bilateral pleural effusion. She had a small pericardial effusion. Some features of anasarca. Blood pressure remains elevated. She al so has an elevated heartbeat even with minimal heart activities. Medications: Medication Review Details: Current Medications Acetaminophen (Acetaminophen 325 Mg Tablet) 650 mg PO Q6H PRN PRN Reason: MILD PAIN Last Admin: 12/06/21 19:31 Dose: 650 mg Documented by: Albuterol/Ipratropium (Ipratropium-Albuterol 3 Ml Neb) 3 ml INHALATION Q6H [facility] Last Admin: 12/08/21 08:44 Dose: 3 ml Documented by: Amlodipine Besylate (Amlodipine 5 Mg Tablet) 2.5 mg PO DAILY [facility] Last Admin: 12/08/21 09:06 Dose: 2.5 mg Documented by: Aspirin (Aspirin 81 Mg Ec Tablet) 81 mg PO DAILY [facility] Last Admin: 12/08/21 09:06 Dose: 81 mg Documented by: Clopidogrel Bisulfate (Clopidogrel 75 Mg Tablet) 75 mg PO DAILY [facility] Last Admin: 12/08/21 09:05 Dose: 75 mg Documented by: Dextrose (Dextrose 50% Syringe 50 Ml) 50 ml IVP PRN PRN; Protocol PRN Reason: hypoglycemia protocol Glucagon (Glucagon 1 Mg/Ml Inj 1 Ml) 1 mg IM ONCE PRN; Protocol PRN Reason: Adult Acute Hypoglycemia Prot. Heparin Sodium (Porcine) (Heparin 5,000 Unit/Ml Inj 1 Ml) 5,000 unit SUBCUT Q12H [facility] Last Admin: 12/08/21 13:23 Dose: 5,000 unit Documented by: Hydralazine HCl (Hydralazine 20 Mg/Ml Inj 1 Ml) 10 mg IVP Q4H PRN PRN Reason: spb>180 dbp >110 Hydrocortisone (Hydrocortisone 10 Mg Tablet) 20 mg PO DAILY [facility] Last Admin: 12/08/21 09:06 Dose: 20 mg Documented by: Hydrocortisone (Hydrocortisone 10 Mg Tablet) 10 mg PO BEDTIME [facility] Piperacillin Sod/Tazobactam (Sod 3.375 gm/ Sodium Chloride) 50 mls @ 12.5 mls/hr IV Q8H [facility]; Protocol Last Admin: 12/08/21 10:02 Dose: 12.5 mls/hr Documented by: Dextrose (D5w) 500 mls @ 100 mls/hr IV ONCE PRN; Protocol PRN Reason: Adult Acute Hypoglycemia Prot Linezolid (Zyvox Premix) 600 mg in 300 mls @ 300 mls/hr IV Q12H [facility]; Protocol Last Infusion: 12/08/21 09:15 Dose: Infused Documented by: Insulin Glargine (Insulin Glargine 100 Units/1 Ml) 14 unit SUBCUT BEDTIME [facility] Last Admin: 12/07/21 21:12 Dose: 14 unit Documented by: Insulin Human Lispro (Insulin Lispro 100 Unit/1 Ml) 0 unit SUBCUT WM&BEDTIME [facility]; Protocol Last Admin: 12/08/21 13:03 Dose: Not Given Documented by: Lorazepam (Lorazepam 2 Mg/Ml Inj 1 Ml) 0.5 mg IVP Q4H PRN PRN Reason: ANXIETY Last Admin: 12/07/21 13:32 Dose: 0.5 mg Documented by: Lorazepam (Lorazepam 2 Mg/Ml Inj 1 Ml) 1 mg IVP ONCE PRN PRN Reason: ANXIETY Last Admin: 12/06/21 21:06 Dose: 1 mg Documented by: Metoclopramide HCl (Metoclopramide 5 Mg/Ml Sdv 2 Ml) 10 mg IVP Q6H PRN PRN Reason: NAUSEA AND VOMITING Last Admin: 12/05/21 16:31 Dose: 10 mg Documented by: Metoprolol Tartrate (Metoprolol Tartrate 25 Mg Tablet) 12.5 mg PO BID@0900,2100 [facility] Last Admin: 12/08/21 09:06 Dose: 12.5 mg Documented by: Ondansetron HCl (Ondansetron 2 Mg/Ml Sdv 2 Ml) 4 mg IVP Q6H PRN PRN Reason: NAUSEA AND VOMITING Last Admin: 12/05/21 14:26 Dose: 4 mg Documented by: Ondansetron HCl (Ondansetron 2 Mg/Ml Sdv 2 Ml) 4 mg IVP Q2M PRN PRN Reason: NAUSEA Pantoprazole Sodium (Pantoprazole 40 Mg Sdv) 40 mg IVP Q24H [facility] Last Admin: 12/08/21 09:05 Dose: 40 mg Documented by: Paroxetine HCl (Paroxetine 20 Mg Tablet) 20 mg PO QAM [facility] Last Admin: 12/08/21 06:17 Dose: 20 mg Documented by: Regadenoson (Regadenoson 0.4 Mg/5 Ml Syringe) 0.4 mg IVP ONCE PRN PRN Reason: Lexiscan Stress Test Vitals/I&O/Wt Last Vital Signs Temp 98.4 F 12/08/21 07:00 Pulse 106 H 12/08/21 16:00 Resp 15 12/08/21 16:00 BP 146/91 12/08/21 16:00 Pulse Ox 98 12/08/21 14:00 12/08/21 12/08/21 12/08/21 06:59 14:59 22:59 Intake Total 50 / 750.054 540 / 540 Output Total 450 / 2950 Balance -400 / -2199.946 540 / 540 Weight last 48 hrs Weight 142 lb 1.6 oz Physical Exam Narrative: GENERAL: The patient is alert and oriented times three. Not in any acute distress. HEENT: No significant pallor, icterus or lymphadenopathy.Oral cavity: There are no mucous membrane lesions. NECK: Trachea appears to be central. No masses noted. No JVD or thyromegaly a ppreciated. RESPIRATORY: Chest is symmetrical. No intercostals muscle retraction or any accessory muscle activation. There is no chest wall tenderness. Breath sounds are heard bilaterally. No rales or rhonchi heard. No evidence of any consolidation. Diminished intensity of breath sounds in the bases. BREASTS: Deferred. HEART: The heart sounds are normal. No S3 or S4. Short systolic murmur at the base of the heart. No diastolic murmurs. No pericardial rub ABDOMEN: No vessel pulsations or distention. No tenderness. No organomegaly appreciated. Bowel sounds are normally heard. : Deferred. RECTAL: Deferred. LYMPHATIC: No lymphadenopathy noted in the neck. EXTREMITIES: Trace edema with no cyanosis . No clubbing. MUSCULOSKELETAL: No acute joint deformities or swelling SKIN: There are no significant rashes or ecchymosis NEUROPSYCHIATRIC: The patient is alert and oriented x3. Appears to be in a good mood. No tremors or rigidity noted. Urinary Catheter Management: Fall: Cath Placed During This Visit: yes Reason for Continuing Indwelling Catheter: Accurate Measurement of Urinary Output in Critically Ill Patients Urinary Catheter Date of Insertion: 12/04/21 Urinary Catheter Time of Insertion: 05:00 Data : 12/08/21 04:10 12/08/21 04:10 Micro: Microbiology 12/07/21 17:45 MRSA Culture - Final Nose A&P Assessment and plan (1) Diastolic heart failure: Patient seems to have intermittent diastolic heart failure. Coronary ischemia causing this is a consideration. Continue careful IV diuresis. I may increase the dose of metoprolol 50 mg p.o. twice daily. IV Lasix 40 mg daily. Status: Acute (2) Elevated troponin: Patient currently stable. In view of the recurrent decompensated heart failure, possibility of coronary ischemia causing this is a consideration. We may go ahead and schedule the perfusion imaging as early as possible. Status: Acute (3) Acute respiratory failure with hypoxia and hypercapnia: Patient has an element of diastolic heart failure and respiratory decompensation. Continue careful IV diuresis Status: Acute (4) Type 1 diabetes mellitus: May continue on the current medications. Status: Acute Qualifiers: Diabetes mellitus complication status: with hyperglycemia Qualified Code(s): E10.65 - Type 1 diabetes mellitus with hyperglycemia (5) Chronic kidney disease: Patient is a kidney function seems to be stable. This is being followed by nephrology. Status: Acute (6) Pneumonia: Patient is on IV of antibiotics. Management as per the primary Status: Acute (7) Anemia: Etiology of anemia is not clear. Patient requires further work-up Status: Acute (8) Hypertension: Currently is of stage II. I may increase the dose of the metoprolol to 50 mg p.o. twice daily. Continue the other medications as it is. Status: Acute Plan Based on the clinical progress, further management decisions will be made Attestations Medical Necessity Statement*: Patient requires continued hospital stay for close monitoring and further management 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 of Care Code Acute Web Application Tester for [facility] Fwd Diagnoses Elevated troponin R77.8 Acute respiratory failure with hypoxia and hypercapnia J96.01; J96.02 Type 1 diabetes mellitus E10.65 Diabetes mellitus complication status: with hyperglycemia Chronic kidney disease N18.9 Pneumonia J18.9 Anemia D64.9 Hypertension I10 Diastolic heart failure I50.30
[2021-12-08 17:26] LABS: Glucose Point of Care 274 mg/dL (70-110)
[2021-12-08] MEDS: FUROsemide 10 mg/mL SDV 4mL 40 MG IVP (17:37)
[2021-12-08] MEDS: hydrocortisone 10 mg Tablet PO (20:34)
[2021-12-08] MEDS: metoprolol tartrate 50 mg Tablet PO (20:34)
[2021-12-08 20:48] LABS: Glucose Point of Care 261 mg/dL (70-110)
[2021-12-08] MEDS: insulin glargine 100 units/1 mL 14 UNIT SUBCUT (20:50)
[2021-12-08] MEDS: LORazepam 2 mg/mL INJ 1 mL 0.5 MG IVP (22:15)
[2021-12-09] VITALS (12 sets, daily range): BP systolic 135–153; BP diastolic 80–94; PULSE 69–102; RESP 11–19; TEMP 36.3–36.7; O2SAT 95–100
[2021-12-09] MEDS: heparin 5,000 unit/mL INJ 1 mL 5000 UNIT SUBCUT ×2 (00:49→12:01)
[2021-12-09] MEDS: piperacillin-tazobactam 3.375 GM in sodium chloride 0.9% (plus) 50 ML IV ×3 (00:49→17:52)
[2021-12-09] MEDS: ipratropium-albuterol 3 mL Neb INHALATION ×4 (03:46→20:25)
[2021-12-09 05:39] LABS: Basophils % 0.4 %; Eosinophils % 0.2 %; Hematocrit 25.6 % (37.0-47.0); Hemoglobin 8.3 g/dL (11.5-15.3); Lymphocytes % 17.5 %; Mean Corpuscular HGB Conc 32.4 g/dL (30.0-36.0); Mean Corpuscular Hemoglobin 27.5 pg (28.0-34.0); Mean Corpuscular Volume 84.8 fl (81-99); Mean Platelet Volume 9.9 fL (7.4-10.4); Monocytes # 0.5 10^3/uL (0.2-0.9); Monocytes % 9.5 %; Neutrophils # 3.97 10^3/uL (1.8-7.7); Nucleated Red Blood Cells % 0 %; Platelet Count 199 10^3/cmm (130-400); Red Blood Count 3.02 10^6/uL (4.1-5.3); Red Cell Distribution Width 14.1 % (12.1-15.1); White Blood Count 5.5 10^3/uL (4.0-10.0)
[2021-12-09 05:57] LABS: Anion Gap 12.8 (5-19); Blood Urea Nitrogen 42 mg/dL (6-20); Calcium 8.3 mg/dL (8.5-10.5); Carbon Dioxide 26 mmol/L (22-29); Chloride 105 mmol/L (98-107); Glomerular Filtration Rate 29.3 mL/min (90-130); Glucose 175 mg/dL (65-115); Magnesium 2.2 mg/dL (1.7-2.3); Osmolality Calculated 305 mOsm/kg (285-295); Potassium 3.8 mmol/L (3.5-5.1); Sodium 140 mmol/L (136-145)
[2021-12-09 06:34] LABS: Glucose Point of Care 175 mg/dL (70-110)
--- NOTE | 2021-12-09 06:54 | PM.PN ---
Subjective Subjective: feel much better Vitals/I&O/Wt Last Vital Signs Temp 97.3 F L 12/09/21 04:00 Pulse 89 12/09/21 06:00 Resp 18 12/09/21 04:00 BP 153/88 12/09/21 04:00 Pulse Ox 97 12/09/21 06:00 12/08/21 12/08/21 12/09/21 14:59 22:59 06:59 Intake Total 590 / 590 590 / 1180 50 / 1230 Output Total 2069 / 2069 700 / 2770 Balance 590 / 590 -1480 / -890 -650 / -1540 Weight last 48 hrs Weight 64.455 kg Physical Exam Urinary Catheter Management: Fall: Cath Placed During This Visit: yes Reason for Continuing Indwelling Catheter: Accurate Measurement of Urinary Output in Critically Ill Patients Urinary Catheter Date of Insertion: 12/04/21 Urinary Catheter Time of Insertion: 05:00 Data : 12/09/21 05:20 12/09/21 05:20 Other Labs: TSAT 23%, ferritin 101 Micro: Microbiology 12/04/21 04:40 Blood Culture - Final Blood NO GROWTH AFTER 5 DAYS 12/07/21 17:45 MRSA Culture - Final Nose A&P Assessment and plan (1) Anemia: Status: Acute Plan seen via telemedicine with assistance of RN at bedside 1. Acute kidney injury, renal function improving. urine sodium and FeNa consistent with prerenal state, can also be seen in contrast nephropathy. 2. Nephrotic range proteinuria. Most likely diabetic nephropathy. Can order [id number] for membranous nephropathy. Proteinuria existed in 2019. Will need outpatient nephrology follow-up for consideration of renal biopsy. 3. Right hydronephrosis not seen on CT 4. Anemia. Marginal iron studies. Recommend IV iron Attestations Medical Necessity Statement*: per primary service Time Spent in Patient Care: 16 - 35 minutes 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 of Care Code Acute Contact Center Representative for g Fwd Diagnoses Anemia D64.9
[2021-12-09 09:20] LABS: Glucose Point of Care 187 mg/dL (70-110)
[2021-12-09] MEDS: linezolid premix 600 MG/300 ML PREMIX 300 MG IV ×2 (09:48→20:43)
[2021-12-09] MEDS: insulin lispro 100 unit/1 mL SUBCUT ×3 (09:49→17:51)
[2021-12-09] MEDS: amlodipine 5 mg Tablet 2.5 MG PO (09:50)
[2021-12-09] MEDS: clopidogrel 75 mg Tablet PO (09:50)
[2021-12-09] MEDS: hydrocortisone 10 mg Tablet 20 MG PO (09:51)
[2021-12-09] MEDS: potassium chloride ER 20 mEq Tablet PO (09:51)
[2021-12-09] MEDS: aspirin 81 mg EC Tablet PO (09:51)
[2021-12-09] MEDS: metoprolol tartrate 50 mg Tablet PO ×2 (09:56→20:44)
[2021-12-09] MEDS: PARoxetine 20 mg Tablet PO (09:56)
[2021-12-09] MEDS: pantoprazole 40 mg SDV IVP (09:56)
[2021-12-09 11:29] LABS: Glucose Point of Care 280 mg/dL (70-110)
--- NOTE | 2021-12-09 13:03 | PM.PN ---
Subjective Subjective: Patient's breathing is much better. Denies any chest pain or chest tightness. The BUN/creatinine are getting better. No chest pain or chest tightness. No fever or chills. No cough. Blood pressure seems to be slowly getting under control. Medications: Medication Review Details: Current Medications Acetaminophen (Acetaminophen 325 Mg Tablet) 650 mg PO Q6H PRN PRN Reason: MILD PAIN Last Admin: 12/06/21 19:31 Dose: 650 mg Documented by: Albuterol/Ipratropium (Ipratropium-Albuterol 3 Ml Neb) 3 ml INHALATION Q6H [facility] Last Admin: 12/09/21 09:11 Dose: 3 ml Documented by: Amlodipine Besylate (Amlodipine 5 Mg Tablet) 2.5 mg PO DAILY [facility] Last Admin: 12/09/21 09:50 Dose: 2.5 mg Documented by: Aspirin (Aspirin 81 Mg Ec Tablet) 81 mg PO DAILY [facility] Last Admin: 12/09/21 09:51 Dose: 81 mg Documented by: Clopidogrel Bisulfate (Clopidogrel 75 Mg Tablet) 75 mg PO DAILY [facility] Last Admin: 12/09/21 09:50 Dose: 75 mg Documented by: Dextrose (Dextrose 50% Syringe 50 Ml) 50 ml IVP PRN PRN; Protocol PRN Reason: hypoglycemia protocol Furosemide (Furosemide 10 Mg/Ml Sdv 4ml) 40 mg IVP Q24H [facility] Last Admin: 12/08/21 17:37 Dose: 40 mg Documented by: Glucagon (Glucagon 1 Mg/Ml Inj 1 Ml) 1 mg IM ONCE PRN; Protocol PRN Reason: Adult Acute Hypoglycemia Prot. Heparin Sodium (Porcine) (Heparin 5,000 Unit/Ml Inj 1 Ml) 5,000 unit SUBCUT Q12H [facility] Last Admin: 12/09/21 12:01 Dose: 5,000 unit Documented by: Hydralazine HCl (Hydralazine 20 Mg/Ml Inj 1 Ml) 10 mg IVP Q4H PRN PRN Reason: spb>180 dbp >110 Hydrocortisone (Hydrocortisone 10 Mg Tablet) 20 mg PO DAILY [facility] Last Admin: 12/09/21 09:51 Dose: 20 mg Documented by: Hydrocortisone (Hydrocortisone 10 Mg Tablet) 10 mg PO BEDTIME [facility] Last Admin: 12/08/21 20:34 Dose: 10 mg Documented by: Piperacillin Sod/Tazobactam (Sod 3.375 gm/ Sodium Chloride) 50 mls @ 12.5 mls/hr IV Q8H [facility]; Protocol Last Admin: 12/09/21 09:52 Dose: 12.5 mls/hr Documented by: Dextrose (D5w) 500 mls @ 100 mls/hr IV ONCE [facility]; Protocol PRN Reason: Adult Acute Hypoglycemia Prot Linezolid (Zyvox Premix) 600 mg in 300 mls @ 300 mls/hr IV Q12H [facility]; Protocol Last Admin: 12/09/21 09:48 Dose: 300 mls/hr Documented by: Insulin Glargine (Insulin Glargine 100 Units/1 Ml) 14 unit SUBCUT BEDTIME [facility] Last Admin: 12/08/21 20:50 Dose: 14 unit Documented by: Insulin Human Lispro (Insulin Lispro 100 Unit/1 Ml) 0 unit SUBCUT WM&BEDTIME [facility]; Protocol Last Admin: 12/09/21 12:02 Dose: 8 unit Documented by: Lorazepam (Lorazepam 2 Mg/Ml Inj 1 Ml) 0.5 mg IVP Q4H PRN PRN Reason: ANXIETY Last Admin: 12/08/21 22:15 Dose: 0.5 mg Documented by: Lorazepam (Lorazepam 2 Mg/Ml Inj 1 Ml) 1 mg IVP ONCE PRN PRN Reason: ANXIETY Last Admin: 12/06/21 21:06 Dose: 1 mg Documented by: Metoclopramide HCl (Metoclopramide 5 Mg/Ml Sdv 2 Ml) 10 mg IVP Q6H PRN PRN Reason: NAUSEA AND VOMITING Last Admin: 12/05/21 16:31 Dose: 10 mg Documented by: Metoprolol Tartrate (Metoprolol Tartrate 50 Mg Tablet) 50 mg PO BID@0900,2100 [facility] Last Admin: 12/09/21 09:56 Dose: 50 mg Documented by: Ondansetron HCl (Ondansetron 2 Mg/Ml Sdv 2 Ml) 4 mg IVP Q6H PRN PRN Reason: NAUSEA AND VOMITING Last Admin: 12/05/21 14:26 Dose: 4 mg Documented by: Ondansetron HCl (Ondansetron 2 Mg/Ml Sdv 2 Ml) 4 mg IVP Q2M PRN PRN Reason: NAUSEA Pantoprazole Sodium (Pantoprazole 40 Mg Sdv) 40 mg IVP Q24H [facility] Last Admin: 12/09/21 09:56 Dose: 40 mg Documented by: Paroxetine HCl (Paroxetine 20 Mg Tablet) 20 mg PO QAM [facility] Last Admin: 12/09/21 09:56 Dose: 20 mg Documented by: Potassium Chloride (Potassium Chloride Er 20 Meq Tablet) 20 meq PO DAILY [facility] Last Admin: 12/09/21 09:51 Dose: 20 meq Documented by: Regadenoson (Regadenoson 0.4 Mg/5 Ml Syringe) 0.4 mg IVP ONCE PRN PRN Reason: Lexiscan Stress Test Vitals/I&O/Wt Last Vital Signs Temp 98.0 F 12/09/21 11:22 Pulse 69 12/09/21 11:22 Resp 12 12/09/21 11:22 BP 147/89 12/09/21 11:22 Pulse Ox 95 12/09/21 11:22 12/08/21 12/09/21 12/09/21 22:59 06:59 14:59 Intake Total 590 / 1180 50 / 1230 360 / 360 Output Total 2070 / 0 700 / 2770 Balance -1480 / -890 -650 / -1540 360 / 360 Weight last 48 hrs Weight 142 lb 1.6 oz Physical Exam Narrative: ENERAL: The patient is alert and oriented times three. Not in any acute distress. HEENT: No significant pallor, icterus or lymphadenopathy.Oral cavity: There are no mucous membrane lesions. NECK: Trachea appears to be central. No masses noted. No JVD or thyromegaly appreciated. RESPIRATORY: Chest is symmetrical. No intercostals muscle retraction or any accessory muscle activation. There is no chest wall tenderness. Breath sounds are heard bilaterally. No rales or rhonchi heard. No evidence of any consolidation.? Diminished intensity of breath sounds in the bases. BREASTS: Deferred. HEART: The heart sounds are normal.? No S3 or S4.? Short systolic murmur at the base of the heart.? No diastolic murmurs.? No pericardial rub ABDOMEN: No vessel pulsations or distention. No tenderness. No organomegaly appreciated.? Bowel sounds are normally heard. : Deferred. RECTAL: Deferred. LYMPHATIC: No lymphadenopathy noted in the neck. EXTREMITIES: Trace edema with no cyanosis . No clubbing. MUSCULOSKELETAL: No acute joint deformities or swelling SKIN: There are no significant rashes or ecchymosis NEUROPSYCHIATRIC: The patient is alert and oriented x3. Appears to be in a good mood. No tremors or rigidity noted. Urinary Catheter Management: Fall: Cath Placed During This Visit: yes Reason for Continuing Indwelling Catheter: Accurate Measurement of Urinary Output in Critically Ill Patients Urinary Catheter Date of Insertion: 12/04/21 Urinary Catheter Time of Insertion: 05:00 Data : 12/09/21 05:20 12/09/21 05:20 Other Labs: Current Medications Acetaminophen (Acetaminophen 325 Mg Tablet) 650 mg PO Q6H PRN PRN Reason: MILD PAIN Last Admin: 12/06/21 19:31 Dose: 650 mg Documented by: Albuterol/Ipratropium (Ipratropium-Albuterol 3 Ml Neb) 3 ml INHALATION Q6H [facility] Last Admin: 12/09/21 09:11 Dose: 3 ml Documented by: Amlodipine Besylate (Amlodipine 5 Mg Tablet) 2.5 mg PO DAILY [facility] Last Admin: 12/09/21 09:50 Dose: 2.5 mg Documented by: Aspirin (Aspirin 81 Mg Ec Tablet) 81 mg PO DAILY [facility] Last Admin: 12/09/21 09:51 Dose: 81 mg Documented by: Clopidogrel Bisulfate (Clopidogrel 75 Mg Tablet) 75 mg PO DAILY [facility] Last Admin: 12/09/21 09:50 Dose: 75 mg Documented by: Dextrose (Dextrose 50% Syringe 50 Ml) 50 ml IVP PRN PRN; Protocol PRN Reason: hypoglycemia protocol Furosemide (Furosemide 10 Mg/Ml Sdv 4ml) 40 mg IVP Q24H [facility] Last Admin: 12/08/21 17:37 Dose: 40 mg Documented by: Glucagon (Glucagon 1 Mg/Ml Inj 1 Ml) 1 mg IM ONCE PRN; Protocol PRN Reason: Adult Acute Hypoglycemia Prot. Heparin Sodium (Porcine) (Heparin 5,000 Unit/Ml Inj 1 Ml) 5,000 unit SUBCUT Q12H [facility] Last Admin: 12/09/21 12:01 Dose: 5,000 unit Documented by: Hydralazine HCl (Hydralazine 20 Mg/Ml Inj 1 Ml) 10 mg IVP Q4H PRN PRN Reason: spb>180 dbp >110 Hydrocortisone (Hydrocortisone 10 Mg Tablet) 20 mg PO DAILY [facility] Last Admin: 12/09/21 09:51 Dose: 20 mg Documented by: Hydrocortisone (Hydrocortisone 10 Mg Tablet) 10 mg PO BEDTIME [facility] Last Admin: 12/08/21 20:34 Dose: 10 mg Documented by: Piperacillin Sod/Tazobactam (Sod 3.375 gm/ Sodium Chloride) 50 mls @ 12.5 mls/hr IV Q8H [facility]; Protocol Last Admin: 12/09/21 09:52 Dose: 12.5 mls/hr Documented by: Dextrose (D5w) 500 mls @ 100 mls/hr IV ONCE PRN; Protocol PRN Reason: Adult Acute Hypoglycemia Prot Linezolid (Zyvox Premix) 600 mg in 300 mls @ 300 mls/hr IV Q12H [facility]; Protocol Last Admin: 12/09/21 09:48 Dose: 300 mls/hr Documented by: Insulin Glargine (Insulin Glargine 100 Units/1 Ml) 14 unit SUBCUT BEDTIME [facility] Last Admin: 12/08/21 20:50 Dose: 14 unit Documented by: Insulin Human Lispro (Insulin Lispro 100 Unit/1 Ml) 0 unit SUBCUT WM&BEDTIME [facility]; Protocol Last Admin: 12/09/21 12:02 Dose: 8 unit Documented by: Lorazepam (Lorazepam 2 Mg/Ml Inj 1 Ml) 0.5 mg IVP Q4H PRN PRN Reason: ANXIETY Last Admin: 12/08/21 22:15 Dose: 0.5 mg Documented by: Lorazepam (Lorazepam 2 Mg/Ml Inj 1 Ml) 1 mg IVP ONCE PRN PRN Reason: ANXIETY Last Admin: 12/06/21 21:06 Dose: 1 mg Documented by: Metoclopramide HCl (Metoclopramide 5 Mg/Ml Sdv 2 Ml) 10 mg IVP Q6H PRN PRN Reason: NAUSEA AND VOMITING Last Admin: 12/05/21 16:31 Dose: 10 mg Documented by: Metoprolol Tartrate (Metoprolol Tartrate 50 Mg Tablet) 50 mg PO BID@0900,2100 [facility] Last Admin: 12/09/21 09:56 Dose: 50 mg Documented by: Ondansetron HCl (Ondansetron 2 Mg/Ml Sdv 2 Ml) 4 mg IVP Q6H PRN PRN Reason: NAUSEA AND VOMITING Last Admin: 12/05/21 14:26 Dose: 4 mg Documented by: Ondansetron HCl (Ondansetron 2 Mg/Ml Sdv 2 Ml) 4 mg IVP Q2M PRN PRN Reason: NAUSEA Pantoprazole Sodium (Pantoprazole 40 Mg Sdv) 40 mg IVP Q24H [facility] Last Admin: 12/09/21 09:56 Dose: 40 mg Documented by: Paroxetine HCl (Paroxetine 20 Mg Tablet) 20 mg PO QAM [facility] Last Admin: 12/09/21 09:56 Dose: 20 mg Documented by: Potassium Chloride (Potassium Chloride Er 20 Meq Tablet) 20 meq PO DAILY [facility] Last Admin: 12/09/21 09:51 Dose: 20 meq Documented by: Regadenoson (Regadenoson 0.4 Mg/5 Ml Syringe) 0.4 mg IVP ONCE PRN PRN Reason: Lexiscan Stress Test Micro: Microbiology 12/04/21 04:40 Blood Culture - Final Blood Staphylococcus epidermidis 12/04/21 04:40 Blood Culture - Final Blood NO GROWTH AFTER 5 DAYS 12/07/21 17:45 MRSA Culture - Final Nose A&P Assessment and plan (1) Diastolic heart failure: The heart failure relative seems to be compensated. At this point, may continue on the current medications. Status: Acute (2) Adrenal insufficiency: Continue on the current management. Follow-up evaluation as scheduled. Status: Acute (3) Hypertension: Since the blood pressure is in the normal range, patient may not require any medication changes at this time. Advised to continue on the current measures. Status: Acute (4) Type 1 diabetes mellitus: Continue on the aggressive management of diabetes Status: Acute Qualifiers: Diabetes mellitus complication status: with hyperglycemia Qualified Code(s): E10.65 - Type 1 diabetes mellitus with hyperglycemia (5) Diabetic nephropathy: Continue aggressive diabetes control measures Status: Acute Plan If the patient continues remain stable, we may go ahead and schedule the Lexiscan/sestamibi/sestamibi stress test to evaluate for underlying coronary ischemia. Based on the results, further recommendations will be made. Attestations Medical Necessity Statement*: Patient requires continued hospital stay for close monitoring and further management 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 of Care Code Acute Catalyst Recovery Operator for [facility] Fwd History Expanded Problem Focused Exam Expanded Problem Focused Medical Decision Making Moderate Complexity Diagnoses Diastolic heart failure I50.30 Diabetic nephropathy E11.21 Adrenal insufficiency E27.40 Hypertension I10 Type 1 diabetes mellitus E10.65 Diabetes mellitus complication status: with hyperglycemia
--- NOTE | 2021-12-09 13:40 | XRR_ITS ---
PROCEDURE INFORMATION: Exam: XR Chest Exam date and time: 12/09/2021 1:47 PM Age: 41 years old Clinical indication: Shortness of breath; Additional info: SOB TECHNIQUE: Imaging protocol: XR of the chest. Views: 1 view. COMPARISON: CR XR chest 1V portable [id number] 12/07/2021 5:14 AM FINDINGS: Tubes, catheters and devices: Stable left central line. Lungs: Continued mild right lower lung field pneumonia with increased [id number] left lower lung field pneumonia. Pleural spaces: Unremarkable. No pleural effusion. No pneumothorax. Heart/Mediastinum: Unremarkable. No cardiomegaly. Bones/joints: Unremarkable. XR/XR chest 1V portable [id number] IMPRESSION: 1. Stable left central line. 2. Continued mild right lower lung field pneumonia with increased [id number] left lower lung field pneumonia.
--- NOTE | 2021-12-09 14:02 | PM.PN ---
Subjective Subjective: Seen this morning. She was seen when having a breathing treatment. Respiratory distress. No acute events overnight. Does not offer any complaints at this time. States she is doing okay. Denies active shortness of breath. Vitals/I&O/Wt Last Vital Signs Temp 98.0 F 12/09/21 11:22 Pulse 69 12/09/21 11:22 Resp 12 12/09/21 11:22 BP 147/89 12/09/21 11:22 Pulse Ox 95 12/09/21 11:22 12/08/21 12/09/21 12/09/21 22:59 06:59 14:59 Intake Total 590 / 1180 50 / 1230 360 / 360 Output Total 2069 / 2069 700 / 2770 Balance -1480 / -890 -650 / -1540 360 / 360 Weight last 48 hrs Weight 64.455 kg Physical Exam Narrative: GenNERAL: The patient is alert and oriented times three. Not in any acute distress. RESPIRATORY: Chest is symmetrical. No intercostals muscle retraction or any accessory muscle activation. There is no chest wall tenderness. Breath sounds are heard bilaterally. No rales or rhonchi heard. No evidence of any consolidation.? Diminished intensity of breath sounds in the bases. HEART: The heart sounds are normal.? No S3 or S4.? Short systolic murmur at the base of the heart.? ABDOMEN: Soft, nontender EXTREMITIES: Trace edema Urinary Catheter Management: Fall: Cath Placed During This Visit: yes Reason for Continuing Indwelling Catheter: Accurate Measurement of Urinary Output in Critically Ill Patients Urinary Catheter Date of Insertion: 12/04/21 Urinary Catheter Time of Insertion: 05:00 Data : 12/09/21 05:20 12/09/21 05:20 Micro: Microbiology 12/04/21 04:40 Blood Culture - Final Blood Staphylococcus epidermidis 12/04/21 04:40 Blood Culture - Final Blood NO GROWTH AFTER 5 DAYS 12/07/21 17:45 MRSA Culture - Final Nose A&P Assessment and plan (1) Diastolic heart failure: Status: Acute (2) Diabetic nephropathy: Status: Acute (3) Hypertension: Status: Acute (4) Adrenal insufficiency: Status: Acute (5) Hydronephrosis: Status: Acute (6) Generalized weakness: Status: Acute (7) Type 1 diabetes mellitus: Status: Acute Qualifiers: Diabetes mellitus complication status: with hyperglycemia Qualified Code(s): E10.65 - Type 1 diabetes mellitus with hyperglycemia (8) Cerebellar cerebrovascular accident (CVA) without late effect: Status: Acute (9) Elevated troponin: Status: Acute (10) Hyperkalemia: Status: Acute (11) Chronic kidney disease: Status: Acute (12) Anemia: Status: Acute (13) Pneumonia: Status: Acute (14) Acute respiratory failure with hypoxia and hypercapnia: Status: Acute (15) Respiratory failure: Status: Acute Qualifiers: Chronicity: acute Respiratory failure complication: hypoxia and hypercapnia Qualified Code(s): J96.01 - Acute respiratory failure with hypoxia; J96.02 - Acute respiratory failure with hypercapnia (16) Pulmonary edema: Status: Acute (17) Depression: Status: Acute Qualifiers: Active/Remission status: currently active Depression Type: major depressive disorder Major depression episode severity: severe Major depression recurrence: recurrent Psychotic features: without psychotic features Qualified Code(s): F33.2 - Major depressive disorder, recurrent severe without psychotic features (18) Homeless: Status: Acute Plan #Acute respiratory failure with hypoxia and hypercapnia #Vent dependent respiratory failure?resolved #Pneumonia on admission #Chronic anemia #MARCELA on CKD secondary to contrast versus cardiorenal #Hyperkalemia #Type II OR/demand ischemia #History of stroke May 2021 #Type 1 diabetes mellitus with hyperglycemia #Adrenal insufficiency -Extubated December 06. Still requiring BiPAP on and off. There is evidence of pulmonary edema on x-ray today. Her baseline oxygen is 2 L. Urine output 2700 since yesterday. ? Continue DuoNeb every 6 hours as needed ? Continue linezolid and Zosyn MRSA PCR pending Blood culture 1 out of 4 positive for staph epidermidis possibly contamination ? Echo limited and of poor quality but EF appeared normal ? Troponin elevation most likely type II demand ischemia ? Plan for stress test this Saturday ? Continue Lasix 60 IV daily. ? Creatinine improving gradually. Nephrology consulted. Unsure if there is a contrast component versus cardiorenal. CT ruled out hydronephrosis although renal ultrasound had a concern of it. Nephro consulted. Appreciate recommendations ? Continue Plavix and aspirin. Hold statin for now secondary to renal dysfunction. ? Continue on insulin ? Continue on maintenance dose steroid 20 in a.m. and 10 PM. Will need endocrinology follow-up at discharge ? Cardiology following. Recommendations appreciated Full code Heparin for DVT prophylaxis Attestations Medical Necessity Statement*: Needs continued hospitalization for close follow-up of acute kidney injury, pneumonia, elevated troponin in this patient with respiratory failure which is improving. 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 of Care Code Acute Superintendent Laundry for Chg Fwd Diagnoses Diastolic heart failure I50.30 Diabetic nephropathy E11.21 Hypertension I10 Adrenal insufficiency E27.40 Hydronephrosis N13.30 Generalized weakness R53.1 Type 1 diabetes mellitus E10.65 Diabetes mellitus complication status: with hyperglycemia Cerebellar cerebrovascular accident (CVA) without late effect Z86.73 Elevated troponin R77.8 Hyperkalemia E87.5 Chronic kidney disease N18.9 Anemia D64.9 Pneumonia J18.9 Acute respiratory failure with hypoxia and hypercapnia J96.01; J96.02 Respiratory failure J96.01; J96.02 Chronicity: acute Respiratory failure complication: hypoxia and hypercapnia Pulmonary edema J81.1 Depression F33.2 Active/Remission status: currently active Depression Type: major depressive disorder Major depression episode severity: severe Major depression recurrence: recurrent Psychotic features: without psychotic features Homeless Z59.00
[2021-12-09] MEDS: FUROsemide 10 mg/mL SDV 4mL 40 MG IVP (14:29)
[2021-12-09 14:33] LABS: Glucose Point of Care 50 mg/dL (70-110)
--- NOTE | 2021-12-09 14:46 | PC.NURSE ---
pt c/o sob and requested that bipap be applied.o2 sat 96%.breath sounds diminished through-out.bipap applied.dr connolly notified.she ordered abg,cxr,and to give 1730 dose of 40 mg lasix iv now.orders completed.
[2021-12-09 17:17] LABS: Glucose Point of Care 291 mg/dL (70-110)
[2021-12-09 18:00] LABS: Glucose Point of Care 122 mg/dL (70-110)
[2021-12-09] MEDS: hydrocortisone 10 mg Tablet PO (20:44)
[2021-12-09] MEDS: insulin glargine 100 units/1 mL 14 UNIT SUBCUT (20:44)
[2021-12-09] MEDS: acetaminophen 325 mg Tablet 650 MG PO (20:49)
[2021-12-09] MEDS: LORazepam 2 mg/mL INJ 1 mL 0.5 MG IVP (20:49)
[2021-12-09 20:56] LABS: Glucose Point of Care 205 mg/dL (70-110)
[2021-12-10] VITALS (14 sets, daily range): BP systolic 138–168; BP diastolic 71–100; PULSE 85–98; RESP 14–20; TEMP 36.4–37.2; O2SAT 93–100
[2021-12-10] MEDS: heparin 5,000 unit/mL INJ 1 mL 5000 UNIT SUBCUT ×2 (00:59→12:29)
[2021-12-10] MEDS: piperacillin-tazobactam 3.375 GM in sodium chloride 0.9% (plus) 50 ML IV ×3 (00:59→18:02)
[2021-12-10 06:10] LABS: Basophils % 0.7 %; Eosinophils # 0.1 10^3/uL (0.0-0.8); Eosinophils % 1.8 %; Hematocrit 27.1 % (37.0-47.0); Hemoglobin 8.7 g/dL (11.5-15.3); Lymphocytes # 1.2 10^3/uL (0.8-4.8); Lymphocytes % 22.6 %; Mean Corpuscular HGB Conc 32.1 g/dL (30.0-36.0); Mean Corpuscular Hemoglobin 27.4 pg (28.0-34.0); Mean Corpuscular Volume 85.5 fl (81-99); Mean Platelet Volume 9.8 fL (7.4-10.4); Monocytes # 0.5 10^3/uL (0.2-0.9); Neutrophils # 3.54 10^3/uL (1.8-7.7); Neutrophils % 65.2 %; Nucleated Red Blood Cells % 0 %; Platelet Count 225 10^3/cmm (130-400); Red Blood Count 3.17 10^6/uL (4.1-5.3); Red Cell Distribution Width 14.1 % (12.1-15.1); White Blood Count 5.4 10^3/uL (4.0-10.0)
[2021-12-10 06:33] LABS: Anion Gap 12.1 (5-19); Blood Urea Nitrogen 33 mg/dL (6-20); Calcium 8.1 mg/dL (8.5-10.5); Carbon Dioxide 27 mmol/L (22-29); Chloride 107 mmol/L (98-107); Glomerular Filtration Rate 33.3 mL/min (90-130); Glucose 123 mg/dL (65-115); Osmolality Calculated 303 mOsm/kg (285-295); Potassium 4.1 mmol/L (3.5-5.1); Sodium 142 mmol/L (136-145)
[2021-12-10] MEDS: linezolid premix 600 MG/300 ML PREMIX 300 MG IV ×2 (06:33→20:35)
[2021-12-10 06:47] LABS: Glucose Point of Care 156 mg/dL (70-110)
--- NOTE | 2021-12-10 07:38 | P.PN_ITS ---
Subjective Subjective: feeling better Vitals/I&O/Wt Last Vital Signs Temp 98.2 F 12/10/21 04:50 Pulse 90 12/10/21 04:50 Resp 14 12/10/21 04:50 BP 139/82 12/10/21 04:50 Pulse Ox 97 12/10/21 04:50 12/09/21 12/10/21 12/10/21 22:59 06:59 14:59 Intake Total 350 / 1060 50 / 1110 Output Total 1000 / 1550 1000 / 2550 Balance -650 / -490 -950 / -1440 Physical Exam Urinary Catheter Management: Fall: Cath Placed During This Visit: yes Reason for Continuing Indwelling Catheter: Accurate Measurement of Urinary Output in Critically Ill Patients Urinary Catheter Date of Insertion: 12/04/21 Urinary Catheter Time of Insertion: 05:00 Data : 12/10/21 05:50 12/10/21 05:50 Micro: Microbiology 12/04/21 04:40 Blood Culture - Final Blood Staphylococcus epidermidis 12/04/21 04:40 Blood Culture - Final Blood NO GROWTH AFTER 5 DAYS A&P Assessment and plan (1) Diabetic nephropathy: Status: Acute Plan seen via telemedicine with assistance of RN at bedside 1. Acute kidney injury, renal function improving. urine sodium and FeNa consistent with prerenal state, can also be seen in contrast nephropathy. 2. Nephrotic range proteinuria. Most likely diabetic nephropathy. Can order [id number] for membranous nephropathy. Proteinuria existed in 2019. Will need outpatient nephrology follow-up for consideration of renal biopsy. 3. Right hydronephrosis not seen on CT 4. Anemia. Marginal iron studies. Recommend IV iron Attestations Medical Necessity Statement*: per primary service Time Spent in Patient Care: 16 - 35 minutes 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 of Care Code Acute Certified Medication Technician for g Fwd Diagnoses Diabetic nephropathy E11.21
[2021-12-10] MEDS: ipratropium-albuterol 3 mL Neb INHALATION ×3 (08:39→20:16)
[2021-12-10] MEDS: insulin lispro 100 unit/1 mL SUBCUT ×3 (08:50→18:02)
[2021-12-10] MEDS: pantoprazole 40 mg SDV IVP (08:52)
[2021-12-10] MEDS: clopidogrel 75 mg Tablet PO (08:53)
[2021-12-10] MEDS: metoprolol tartrate 50 mg Tablet PO ×2 (08:53→20:36)
[2021-12-10] MEDS: potassium chloride ER 20 mEq Tablet PO (08:53)
[2021-12-10] MEDS: hydrocortisone 10 mg Tablet 20 MG PO (08:53)
[2021-12-10] MEDS: amlodipine 5 mg Tablet 2.5 MG PO (08:53)
[2021-12-10] MEDS: PARoxetine 20 mg Tablet PO (08:53)
[2021-12-10] MEDS: aspirin 81 mg EC Tablet PO (08:53)
[2021-12-10 12:07] LABS: Glucose Point of Care 217 mg/dL (70-110)
--- NOTE | 2021-12-10 16:08 | P.PN_ITS ---
Subjective Subjective: seen this AM sob improved stress test in AM Vitals/I&O/Wt Last Vital Signs Temp 97.5 F L 12/10/21 12:31 Pulse 88 12/10/21 14:36 Resp 16 12/10/21 14:30 BP 168/100 12/10/21 12:31 Pulse Ox 99 12/10/21 14:30 12/10/21 12/10/21 12/10/21 06:59 14:59 22:59 Intake Total 50 / 1110 480 / 480 Output Total 1000 / 2550 250 / 250 Balance -950 / -1440 230 / 230 Physical Exam Narrative: GenNERAL: The patient is alert and oriented times three. Not in any acute distress. RESPIRATORY: Chest is symmetrical. No intercostals muscle retraction or any accessory muscle activation. There is no chest wall tenderness. Breath sounds are heard bilaterally. No rales or rhonchi heard. No evidence of any consolidation.? Diminished intensity of breath sounds in the bases. HEART: The heart sounds are normal.? No S3 or S4.? Short systolic murmur at the base of the heart.? ABDOMEN: Soft, nontender EXTREMITIES: Trace edema Urinary Catheter Management: Fall: Cath Placed During This Visit: yes, but has since been removed by the nurse Reason for Continuing Indwelling Catheter: Accurate Measurement of Urinary Output in Critically Ill Patients Urinary Catheter Date of Insertion: 12/04/21 Urinary Catheter Time of Insertion: 05:00 Date Urinary Catheter Removed: 12/10/21 Time Urinary Catheter Discontinued: 13:49 Data : 12/10/21 05:50 12/10/21 05:50 Micro: Microbiology 12/04/21 04:40 Blood Culture - Final Blood Staphylococcus epidermidis A&P Assessment and plan (1) Diastolic heart failure: Status: Acute (2) Diabetic nephropathy: Status: Acute (3) Adrenal insufficiency: Status: Acute (4) Hypertension: Status: Acute (5) Hydronephrosis: Status: Acute (6) Generalized weakness: Status: Acute (7) Type 1 diabetes mellitus: Status: Acute Qualifiers: Diabetes mellitus complication status: with hyperglycemia Qualified Code(s): E10.65 - Type 1 diabetes mellitus with hyperglycemia (8) Cerebellar cerebrovascular accident (CVA) without late effect: Status: Acute (9) Elevated troponin: Status: Acute (10) Hyperkalemia: Status: Acute (11) Anemia: Status: Acute (12) Chronic kidney disease: Status: Acute (13) Pneumonia: Status: Acute (14) Acute respiratory failure with hypoxia and hypercapnia: Status: Acute (15) Depression: Status: Acute Qualifiers: Active/Remission status: currently active Depression Type: major depressive disorder Major depression episode severity: severe Major depression recurrence: recurrent Psychotic features: without psychotic features Qualified Code(s): F33.2 - Major depressive disorder, recurrent severe without psychotic features (16) Pulmonary edema: Status: Acute (17) Respiratory failure: Status: Acute Qualifiers: Chronicity: acute Respiratory failure complication: hypoxia and hypercapnia Qualified Code(s): J96.01 - Acute respiratory failure with hypoxia; J96.02 - Acute respiratory failure with hypercapnia (18) Homeless: Status: Acute Plan #Acute respiratory failure with hypoxia and hypercapnia #Vent dependent respiratory failure?resolved #Pneumonia on admission #Chronic anemia #MARCELA on CKD secondary to contrast versus cardiorenal #Hyperkalemia #Type II [place]/demand ischemia #History of stroke May 2021 #Type 1 diabetes mellitus with hyperglycemia #Adrenal insufficiency -Extubated December 06.? Still requiring BiPAP on and off.? There is evidence of pulmonary edema on x-ray today.? Her baseline oxygen is 2 L.? Urine output 2700 since yesterday. ? Continue DuoNeb every 6 hours as needed ? Continue linezolid and Zosyn MRSA PCR pending Blood culture 1 out of 4 positive for staph epidermidis possibly contamination ? Echo limited and of poor quality but EF appeared normal ? Troponin elevation most likely type II demand ischemia ? Plan for stress test this Saturday ? Continue Lasix 60 IV daily. ? Creatinine improving gradually.? Nephrology consulted.? Unsure if there is a contrast component versus cardiorenal.? CT ruled out hydronephrosis although renal ultrasound had a concern of it.? Nephro consulted.? Appreciate recommendations ? Continue Plavix and aspirin.? Hold statin for now secondary to renal dys function. ? Continue on insulin ? Continue on maintenance dose steroid 20 in a.m. and 10 PM.? Will need endocrinology follow-up at discharge ? Cardiology following.? Recommendations appreciated Full code Heparin for DVT prophylaxis Attestations Medical Necessity Statement*: Needs continued hospitalization for close follow-up of acute kidney injury, pneumonia, elevated troponin in this patient with respiratory failure which is improving 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 of Care Code Acute Hearing Therapy Teacher for Chg Fwd Diagnoses Diastolic heart failure I50.30 Diabetic nephropathy E11.21 Adrenal insufficiency E27.40 Hypertension I10 Hydronephrosis N13.30 Generalized weakness R53.1 Type 1 diabetes mellitus E10.65 Diabetes mellitus complication status: with hyperglycemia Cerebellar cerebrovascular accident (CVA) without late effect Z86.73 Elevated troponin R77.8 Hyperkalemia E87.5 Anemia D64.9 Chronic kidney disease N18.9 Pneumonia J18.9 Acute respiratory failure with hypoxia and hypercapnia J96.01; J96.02 Depression F33.2 Active/Remission status: currently active Depression Type: major depressive disorder Major depression episode severity: severe Major depression recurrence: recurrent Psychotic features: without psychotic features Pulmonary edema J81.1 Respiratory failure J96.01; J96.02 Chronicity: acute Respiratory failure complication: hypoxia and hypercapnia Homeless Z59.00
[2021-12-10 17:49] LABS: Glucose Point of Care 164 mg/dL (70-110)
[2021-12-10] MEDS: FUROsemide 10 mg/mL SDV 4mL 40 MG IVP (18:01)
--- NOTE | 2021-12-10 20:09 | P.PN_ITS ---
Subjective Subjective: Patient breathing has significantly improved. Denies any chest pain. No fever or chills. Vital signs remained stable. The blood pressure remains elevated. No significant arrhythmias on the monitor Medications: Medication Review Details: Current Medications Acetaminophen (Acetaminophen 325 Mg Tablet) 650 mg PO Q6H PRN PRN Reason: MILD PAIN Last Admin: 12/09/21 20:49 Dose: 650 mg Documented by: Albuterol/Ipratropium (Ipratropium-Albuterol 3 Ml Neb) 3 ml INHALATION Q6H SHARON Last Admin: 12/10/21 14:26 Dose: 3 ml Documented by: Amlodipine Besylate (Amlodipine 5 Mg Tablet) 2.5 mg PO DAILY SHARON Last Admin: 12/10/21 08:53 Dose: 2.5 mg Documented by: Aspirin (Aspirin 81 Mg Ec Tablet) 81 mg PO DAILY SHARON Last Admin: 12/10/21 08:53 Dose: 81 mg Documented by: Clopidogrel Bisulfate (Clopidogrel 75 Mg Tablet) 75 mg PO DAILY [facility] Last Admin: 12/10/21 08:53 Dose: 75 mg Documented by: Dextrose (Dextrose 50% Syringe 50 Ml) 50 ml IVP PRN PRN; Protocol PRN Reason: hypoglycemia protocol Furosemide (Furosemide 10 Mg/Ml Sdv 4ml) 40 mg IVP Q24H [facility] Last Admin: 12/10/21 18:01 Dose: 40 mg Documented by: Glucagon (Glucagon 1 Mg/Ml Inj 1 Ml) 1 mg IM ONCE PRN; Protocol PRN Reason: Adult Acute Hypoglycemia Prot. Heparin Sodium (Porcine) (Heparin 5,000 Unit/Ml Inj 1 Ml) 5,000 unit SUBCUT Q12H SHARON Last Admin: 12/10/21 12:29 Dose: 5,000 unit Documented by: Hydralazine HCl (Hydralazine 20 Mg/Ml Inj 1 Ml) 10 mg IVP Q4H PRN PRN Reason: spb>180 dbp >110 Hydrocortisone (Hydrocortisone 10 Mg Tablet) 20 mg PO DAILY [facility] Last Admin: 12/10/21 08:53 Dose: 20 mg Documented by: Hydrocortisone (Hydrocortisone 10 Mg Tablet) 10 mg PO BEDTIME SHARON Last Admin: 12/09/21 20:44 Dose: 10 mg Documented by: Piperacillin Sod/Tazobactam (Sod 3.375 gm/ Sodium Chloride) 50 mls @ 12.5 mls/hr IV Q8H SHARON; Protocol Last Admin: 12/10/21 18:02 Dose: 12.5 mls/hr Documented by: Dextrose (D5w) 500 mls @ 100 mls/hr IV ONCE PRN; Protocol PRN Reason: Adult Acute Hypoglycemia Prot Linezolid (Zyvox Premix) 600 mg in 300 mls @ 300 mls/hr IV Q12H SHARON; Protocol Last Infusion: 12/10/21 19:17 Dose: Infused Documented by: Insulin Glargine (Insulin Glargine 100 Units/1 Ml) 14 unit SUBCUT BEDTIME SHARON Last Admin: 12/09/21 20:44 Dose: 14 unit Documented by: Insulin Human Lispro (Insulin Lispro 100 Unit/1 Ml) 0 unit SUBCUT WM&BEDTIME SHARON; Protocol Last Admin: 12/10/21 18:02 Dose: 2 unit Documented by: Lorazepam (Lorazepam 2 Mg/Ml Inj 1 Ml) 0.5 mg IVP Q4H PRN PRN Reason: ANXIETY Last Admin: 12/09/21 20:49 Dose: 0.5 mg Documented by: Lorazepam (Lorazepam 2 Mg/Ml Inj 1 Ml) 1 mg IVP ONCE PRN PRN Reason: ANXIETY Last Admin: 12/06/21 21:06 Dose: 1 mg Documented by: Metoclopramide HCl (Metoclopramide 5 Mg/Ml Sdv 2 Ml) 10 mg IVP Q6H PRN PRN Reason: NAUSEA AND VOMITING Last Admin: 12/05/21 16:31 Dose: 10 mg Documented by: Metoprolol Tartrate (Metoprolol Tartrate 50 Mg Tablet) 50 mg PO BID@0900,2100 [facility] Last Admin: 12/10/21 08:53 Dose: 50 mg Documented by: Ondansetron HCl (Ondansetron 2 Mg/Ml Sdv 2 Ml) 4 mg IVP Q6H PRN PRN Reason: NAUSEA AND VOMITING Last Admin: 12/05/21 14:26 Dose: 4 mg Documented by: Ondansetron HCl (Ondansetron 2 Mg/Ml Sdv 2 Ml) 4 mg IVP Q2M PRN PRN Reason: NAUSEA Pantoprazole Sodium (Pantoprazole 40 Mg Sdv) 40 mg IVP Q24H [facility] Last Admin: 12/10/21 08:52 Dose: 40 mg Documented by: Paroxetine HCl (Paroxetine 20 Mg Tablet) 20 mg PO QAM [facility] Last Admin: 12/10/21 08:53 Dose: 20 mg Documented by: Potassium Chloride (Potassium Chloride Er 20 Meq Tablet) 20 meq PO DAILY [facility] Last Admin: 12/10/21 08:53 Dose: 20 meq Documented by: Regadenoson (Regadenoson 0.4 Mg/5 Ml Syringe) 0.4 mg IVP ONCE PRN PRN Reason: Lexiscan Stress Test Vitals/I&O/Wt Last Vital Signs Temp 98.9 F 12/10/21 16:00 Pulse 90 12/10/21 16:00 Resp 16 12/10/21 16:00 BP 153/71 12/10/21 16:00 Pulse Ox 98 12/10/21 16:00 12/10/21 12/10/21 12/10/21 06:59 14:59 22:59 Intake Total 50 / 1110 890 / 890 780 / 1670 Output Total 1000 / 2550 250 / 250 Balance -950 / -1440 640 / 640 780 / 1420 Physical Exam Narrative: Narrative GENERAL: The patient is alert and oriented times three. Not in any acute distress. HEENT: No significant pallor, icterus or lymphadenopathy.Oral cavity: There are no mucous membrane lesions. NECK: Trachea appears to be central. No masses noted. No JVD or thyromegaly appreciated. RESPIRATORY: Chest is symmetrical. No intercostals muscle retraction or any accessory muscle activation. There is no chest wall tenderness. Breath sounds are heard bilaterally. Scattered expiratory wheezes BREASTS: Deferred. HEART: The heart sounds are normal.? No S3 or S4.? Short systolic murmur at the left sternal border. No diastolic murmurs. ABDOMEN: No vessel pulsations or distention. No tenderness. No organomegaly appreciated.? Bowel sounds are normally heard. : Deferred. RECTAL: Deferred. LYMPHATIC: No lymphadenopathy noted in the neck. EXTREMITIES: Trace edema with no cyanosis . No clubbing. MUSCULOSKELETAL: No acute joint deformities or swelling SKIN: There are no significant rashes or ecchymosis NEUROPSYCHIATRIC: The patient is alert and oriented x3. Appears to be in a good mood. No tremors or rigidity noted. Urinary Catheter Management: Fall: Cath Placed During This Visit: yes, but has since been removed by the nurse Reason for Continuing Indwelling Catheter: Accurate Measurement of Urinary Output in Critically Ill Patients Urinary Catheter Date of Insertion: 12/04/21 Urinary Catheter Time of Insertion: 05:00 Date Urinary Catheter Removed: 12/10/21 Time Urinary Catheter Discontinued: 13:49 Data : 12/10/21 05:50 12/10/21 05:50 A&P Assessment and plan (1) Diastolic heart failure: The heart failure relative seems to be compensated. At this point, may continue on the current medications. Patient is scheduled for a Myocardial perfusion imaging tomorrow to evaluate for any underlying coronary ischemia Status: Acute (2) Adrenal insufficiency: Continue on the current management. Follow-up evaluation as scheduled. Status: Acute (3) Hypertension: The blood pressure is a stage II. I may go up on the dose of the amlodipine to 5 mg p.o. daily. Status: Acute (4) Type 1 diabetes mellitus: Continue on the aggressive management of diabetes Status: Acute Qualifiers: Diabetes mellitus complication status: with hyperglycemia Qualified C ode(s): E10.65 - Type 1 diabetes mellitus with hyperglycemia (5) Diabetic nephropathy: Continue aggressive diabetes control measures Status: Acute Plan Patient is scheduled for the MPI tomorrow. Based on the results, further recommendations will be made Attestations Medical Necessity Statement*: Patient requires continued hospital stay for close monitoring and further management 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 of Care Code Acute Ap Processor for Chg Fwd History Expanded Problem Focused Exam Detailed Medical Decision Making Moderate Complexity Diagnoses Diastolic heart failure I50.30 Adrenal insufficiency E27.40 Hypertension I10 Type 1 diabetes mellitus E10.65 Diabetes mellitus complication status: with hyperglycemia Diabetic nephropathy E11.21
[2021-12-10] MEDS: insulin glargine 100 units/1 mL 14 UNIT SUBCUT (20:36)
[2021-12-10] MEDS: hydrocortisone 10 mg Tablet PO (20:36)
[2021-12-10] MEDS: LORazepam 2 mg/mL INJ 1 mL 0.5 MG IVP (20:44)
[2021-12-10 21:14] LABS: Glucose Point of Care 341 mg/dL (70-110)
[2021-12-11] VITALS (17 sets, daily range): BP systolic 104–172; BP diastolic 57–96; PULSE 72–101; RESP 13–21; TEMP 36.6–37.1; O2SAT 96–100
[2021-12-11] MEDS: heparin 5,000 unit/mL INJ 1 mL 5000 UNIT SUBCUT ×2 (00:30→13:33)
[2021-12-11] MEDS: piperacillin-tazobactam 3.375 GM in sodium chloride 0.9% (plus) 50 ML IV ×2 (00:30→08:28)
[2021-12-11] MEDS: ipratropium-albuterol 3 mL Neb INHALATION ×4 (03:33→21:34)
[2021-12-11 06:57] LABS: Glucose Point of Care 329 mg/dL (70-110)
--- NOTE | 2021-12-11 07:46 | PM.PN ---
Subjective Subjective: less sob. dec edema. feels better. denies CP Medications: Reviewed: Yes Medication Review Details: Current Medications Acetaminophen (Acetaminophen 325 Mg Tablet) 650 mg PO Q6H PRN PRN Reason: MILD PAIN Last Admin: 12/09/21 20:49 Dose: 650 mg Documented by: Albuterol/Ipratropium (Ipratropium-Albuterol 3 Ml Neb) 3 ml INHALATION Q6H [facility] Last Admin: 12/11/21 03:33 Dose: 3 ml Documented by: Aminophylline (Aminophylline 25 Mg/Ml Sdv 10 Ml) 25 mg IVP Q2M PRN PRN Reason: see dose instructions Stop: 12/12/21 07:06 Amlodipine Besylate (Amlodipine 5 Mg Tablet) 5 mg PO DAILY [facility] Aspirin (Aspirin 81 Mg Ec Tablet) 81 mg PO DAILY [facility] Last Admin: 12/10/21 08:53 Dose: 81 mg Documented by: Clopidogrel Bisulfate (Clopidogrel 75 Mg Tablet) 75 mg PO DAILY [facility] Last Admin: 12/10/21 08:53 Dose: 75 mg Documented by: Dextrose (Dextrose 50% Syringe 50 Ml) 50 ml IVP PRN PRN; Protocol PRN Reason: hypoglycemia protocol Furosemide (Furosemide 10 Mg/Ml Sdv 4ml) 40 mg IVP Q24H [facility] Last Admin: 12/10/21 18:01 Dose: 40 mg Documented by: Glucagon (Glucagon 1 Mg/Ml Inj 1 Ml) 1 mg IM ONCE PRN; Protocol PRN Reason: Adult Acute Hypoglycemia Prot. Heparin Sodium (Porcine) (Heparin 5,000 Unit/Ml Inj 1 Ml) 5,000 unit SUBCUT Q12H [facility] Last Admin: 12/11/21 00:30 Dose: 5,000 unit Documented by: Hydralazine HCl (Hydralazine 20 Mg/Ml Inj 1 Ml) 10 mg IVP Q4H PRN PRN Reason: spb>180 dbp >110 Hydrocortisone (Hydrocortisone 10 Mg Tablet) 20 mg PO DAILY [facility] Last Admin: 12/10/21 08:53 Dose: 20 mg Documented by: Hydrocortisone (Hydrocortisone 10 Mg Tablet) 10 mg PO BEDTIME [facility] Last Admin: 12/10/21 20:36 Dose: 10 mg Documented by: Piperacillin Sod/Tazobactam (Sod 3.375 gm/ Sodium Chloride) 50 mls @ 12.5 mls/hr IV Q8H [facility]; Protocol Last Infusion: 12/11/21 04:38 Dose: Infused Documented by: Dextrose (D5w) 500 mls @ 100 mls/hr IV ONCE PRN; Protocol PRN Reason: Adult Acute Hypoglycemia Prot Linezolid (Zyvox Premix) 600 mg in 300 mls @ 300 mls/hr IV Q12H [facility]; Protocol Last Infusion: 12/10/21 21:51 Dose: Infused Documented by: Insulin Glargine (Insulin Glargine 100 Units/1 Ml) 14 unit SUBCUT BEDTIME [facility] Last Admin: 12/10/21 20:36 Dose: 14 unit Documented by: Insulin Human Lispro (Insulin Lispro 100 Unit/1 Ml) 0 unit SUBCUT WM&BEDTIME [facility]; Protocol Last Admin: 12/10/21 20:36 Dose: Not Given Documented by: Lorazepam (Lorazepam 2 Mg/Ml Inj 1 Ml) 0.5 mg IVP Q4H PRN PRN Reason: ANXIETY Last Admin: 12/10/21 20:44 Dose: 0.5 mg Documented by: Metoclopramide HCl (Metoclopramide 5 Mg/Ml Sdv 2 Ml) 10 mg IVP Q6H PRN PRN Reason: NAUSEA AND VOMITING Last Admin: 12/05/21 16:31 Dose: 10 mg Documented by: Metoprolol Tartrate (Metoprolol Tartrate 50 Mg Tablet) 50 mg PO BID@0900,2100 [facility] Last Admin: 12/10/21 20:36 Dose: 50 mg Documented by: Nitroglycerin (Nitroglycerin 0.4 Mg Sublingual Tablet) 0.4 mg SUBLINGUAL Q5M PRN PRN Reason: CHEST PAIN Stop: 12/12/21 07:06 Ondansetron HCl (Ondansetron 2 Mg/Ml Sdv 2 Ml) 4 mg IVP Q6H PRN PRN Reason: NAUSEA AND VOMITING Last Admin: 12/05/21 14:26 Dose: 4 mg Documented by: Ondansetron HCl (Ondansetron 2 Mg/Ml Sdv 2 Ml) 4 mg IVP Q2M PRN PRN Reason: NAUSEA Ondansetron HCl (Ondansetron 2 Mg/Ml Sdv 2 Ml) 4 mg IVP Q2M PRN PRN Reason: NAUSEA Pantoprazole Sodium (Pantoprazole 40 Mg Sdv) 40 mg IVP Q24H [facility] Last Admin: 12/10/21 08:52 Dose: 40 mg Documented by: Paroxetine HCl (Paroxetine 20 Mg Tablet) 20 mg PO QAM [facility] Last Admin: 12/10/21 08:53 Dose: 20 mg Documented by: Potassium Chloride (Potassium Chloride Er 20 Meq Tablet) 20 meq PO DAILY [facility] Last Admin: 12/10/21 08:53 Dose: 20 meq Documented by: Regadenoson (Regadenoson 0.4 Mg/5 Ml Syringe) 0.4 mg IVP ONCE PRN PRN Reason: Lexiscan Stress Test Regadenoson (Regadenoson 0.4 Mg/5 Ml Syringe) 0.4 mg IVP ONCE PRN PRN Reason: Lexiscan Stress Test Vitals/I&O/Wt Last Vital Signs Temp 97.8 F 12/11/21 04:00 Pulse 89 12/11/21 06:20 Resp 18 12/11/21 04:00 BP 132/82 12/11/21 04:00 Pulse Ox 96 12/11/21 06:20 12/10/21 12/11/21 12/11/21 22:59 06:59 14:59 Intake Total 1129 / 2019 50 / 2070 Balance 1130 / 1770 50 / 1820 Physical Exam Narrative: using nc 02 in bed vss henet- nc/at, eomi, anicteric neck supple lungs dull bases heart reg, +CARLYN abd soft, nt, nd, + bs ext trace leg edema neuro- a,a, o x 3 Urinary Catheter Management: Fall: Cath Placed During This Visit: yes, but has since been removed by the nurse Reason for Continuing Indwelling Catheter: Accurate Measurement of Urinary Output in Critically Ill Patients Urinary Catheter Date of Insertion: 12/04/21 Urinary Catheter Time of Insertion: 05:00 Date Urinary Catheter Removed: 12/10/21 Time Urinary Catheter Discontinued: 13:49 Data : 12/10/21 05:50 12/10/21 05:50 A&P Assessment and plan (1) Diabetic nephropathy: 41 yr old female 1. MARCELA -improving- D Dx is CI- MARCELA, Prerenal from CRS 2. CKD from DM- likely stage 3. monitor where cr plateaus -once stable- she should use an aRB and likely Farxigia -no hydronephrosis on ct scan 3. anemia - ferritin 101, tsat 23%- iv iron as infection improved. needs complete NANCI evaluation 4.DM control per medicine 5. pna improved 6.moderate pleural effusions and small pericardial effusion- cardiology/ pulm/ renal fu 7. adrenal insufficiency per chart- outpt f/u bp stable d/c potassium as starting ARB seen and examine dw/ RN- telehealth visit time spent 30 min Status: Acute Attestations Medical Necessity Statement*: per medicine Time Spent in Patient Care: 16 - 35 minutes (>than 50% of time spent in counselling and/or direct pt care on unit). 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 of Care Code Acute Freight Representative for Chg Fwd Diagnoses Diabetic nephropathy E11.21
[2021-12-11] MEDS: linezolid premix 600 MG/300 ML PREMIX 300 MG IV ×2 (08:24→18:18)
[2021-12-11] MEDS: pantoprazole 40 mg SDV IVP (08:27)
[2021-12-11] MEDS: PARoxetine 20 mg Tablet PO (08:27)
[2021-12-11] MEDS: clopidogrel 75 mg Tablet PO (08:27)
[2021-12-11] MEDS: aspirin 81 mg EC Tablet PO (08:27)
--- NOTE | 2021-12-11 09:03 | PM.PN ---
Subjective Subjective: Patient is feeling better. Denies any chest pain or palpitation No arrhythmias are noted her breathing is much better now. She also is able to lie flat in the bed. Medications: Medication Review Details: Current Medications Acetaminophen (Acetaminophen 325 Mg Tablet) 650 mg PO Q6H PRN PRN Reason: MILD PAIN Last Admin: 12/09/21 20:49 Dose: 650 mg Documented by: Albuterol/Ipratropium (Ipratropium-Albuterol 3 Ml Neb) 3 ml INHALATION Q6H [facility] Last Admin: 12/11/21 08:03 Dose: 3 ml Documented by: Aminophylline (Aminophylline 25 Mg/Ml Sdv 10 Ml) 25 mg IVP Q2M PRN PRN Reason: see dose instructions Stop: 12/12/21 07:06 Amlodipine Besylate (Amlodipine 5 Mg Tablet) 2.5 mg PO DAILY [facility] Aspirin (Aspirin 81 Mg Ec Tablet) 81 mg PO DAILY [facility] Last Admin: 12/11/21 08:27 Dose: 81 mg Documented by: Clopidogrel Bisulfate (Clopidogrel 75 Mg Tablet) 75 mg PO DAILY [facility] Last Admin: 12/11/21 08:27 Dose: 75 mg Documented by: Dextrose (Dextrose 50% Syringe 50 Ml) 50 ml IVP PRN PRN; Protocol PRN Reason: hypoglycemia protocol Furosemide (Furosemide 10 Mg/Ml Sdv 4ml) 40 mg IVP Q24H [facility] Last Admin: 12/10/21 18:01 Dose: 40 mg Documented by: Glucagon (Glucagon 1 Mg/Ml Inj 1 Ml) 1 mg IM ONCE PRN; Protocol PRN Reason: Adult Acute Hypoglycemia Prot. Heparin Sodium (Porcine) (Heparin 5,000 Unit/Ml Inj 1 Ml) 5,000 unit SUBCUT Q12H [facility] Last Admin: 12/11/21 00:30 Dose: 5,000 unit Documented by: Hydralazine HCl (Hydralazine 20 Mg/Ml Inj 1 Ml) 10 mg IVP Q4H PRN PRN Reason: spb>180 dbp >110 Hydrocortisone (Hydrocortisone 10 Mg Tablet) 20 mg PO DAILY [facility] Last Admin: 12/10/21 08:53 Dose: 20 mg Documented by: Hydrocortisone (Hydrocortisone 10 Mg Tablet) 10 mg PO BEDTIME [facility] Last Admin: 12/10/21 20:36 Dose: 10 mg Documented by: Piperacillin Sod/Tazobactam (Sod 3.375 gm/ Sodium Chloride) 50 mls @ 12.5 mls/hr IV Q8H [facility]; Protocol Last Admin: 12/11/21 08:28 Dose: 12.5 mls/hr Documented by: Dextrose (D5w) 500 mls @ 100 mls/hr IV ONCE PRN; Protocol PRN Reason: Adult Acute Hypoglycemia Prot Linezolid (Zyvox Premix) 600 mg in 300 mls @ 300 mls/hr IV Q12H [facility]; Protocol Last Admin: 12/11/21 08:24 Dose: 300 mls/hr Documented by: Ferric Sodium Gluconate 125 mg (/ Sodium Chloride) 110 mls @ 110 mls/hr IV Q24H [facility] Stop: 12/18/21 09:59 Insulin Glargine (Insulin Glargine 100 Units/1 Ml) 14 unit SUBCUT BEDTIME [facility] Last Admin: 12/10/21 20:36 Dose: 14 unit Documented by: Insulin Human Lispro (Insulin Lispro 100 Unit/1 Ml) 0 unit SUBCUT WM&BEDTIME [facility]; Protocol Last Admin: 12/11/21 08:24 Dose: Not Given Documented by: Lorazepam (Lorazepam 2 Mg/Ml Inj 1 Ml) 0.5 mg IVP Q4H PRN PRN Reason: ANXIETY Last Admin: 12/10/21 20:44 Dose: 0.5 mg Documented by: Losartan Potassium (Losartan 50 Mg Tablet) 25 mg PO DAILY [facility] Metoclopramide HCl (Metoclopramide 5 Mg/Ml Sdv 2 Ml) 10 mg IVP Q6H PRN PRN Reason: NAUSEA AND VOMITING Last Admin: 12/05/21 16:31 Dose: 10 mg Documented by: Metoprolol Tartrate (Metoprolol Tartrate 50 Mg Tablet) 50 mg PO BID@0900,2100 [facility] Last Admin: 12/11/21 07:48 Dose: Not Given Documented by: Nitroglycerin (Nitroglycerin 0.4 Mg Sublingual Tablet) 0.4 mg SUBLINGUAL Q5M PRN PRN Reason: CHEST PAIN Stop: 12/12/21 07:06 Ondansetron HCl (Ondansetron 2 Mg/Ml Sdv 2 Ml) 4 mg IVP Q6H PRN PRN Reason: NAUSEA AND VOMITING Last Admin: 12/05/21 14:26 Dose: 4 mg Documented by: Ondansetron HCl (Ondansetron 2 Mg/Ml Sdv 2 Ml) 4 mg IVP Q2M PRN PRN Reason: NAUSEA Ondansetron HCl (Ondansetron 2 Mg/Ml Sdv 2 Ml) 4 mg IVP Q2M PRN PRN Reason: NAUSEA Pantoprazole Sodium (Pantoprazole 40 Mg Sdv) 40 mg IVP Q24H [facility] Last Admin: 12/11/21 08:27 Dose: 40 mg Documented by: Paroxetine HCl (Paroxetine 20 Mg Tablet) 20 mg PO QAM [facility] Last Admin: 12/11/21 08:27 Dose: 20 mg Documented by: Regadenoson (Regadenoson 0.4 Mg/5 Ml Syringe) 0.4 mg IVP ONCE PRN PRN Reason: Lexiscan Stress Test Regadenoson (Regadenoson 0.4 Mg/5 Ml Syringe) 0.4 mg IVP ONCE PRN PRN Reason: Lexiscan Stress Test Vitals/I&O/Wt Last Vital Signs Temp 97.8 F 12/11/21 08:00 Pulse 92 12/11/21 08:10 Resp 17 12/11/21 08:03 BP 155/89 12/11/21 08:00 Pulse Ox 97 12/11/21 08:03 12/10/21 12/11/21 12/11/21 22:59 06:59 14:59 Intake Total 1130 / 2019 50 / 2070 Balance 1130 / 1770 50 / 1820 Physical Exam Narrative: GENERAL: The patient is alert and oriented times three. Not in any acute distress. HEENT: No significant pallor, icterus or lymphadenopathy.Oral cavity: There are no mucous membrane lesions. NECK: Trachea appears to be central. No masses noted. No JVD or thyromegaly appreciated. RESPIRATORY: Chest is symmetrical. No intercostals muscle retraction or any accessory muscle activation. There is no chest wall tenderness. Breath sounds are heard bilaterally. No rales or rhonchi. No evidence of any consolidation. BREASTS: Deferred. HEART: The heart sounds are normal. No S3 or S4. No significant murmurs. No pericardial rub ABDOMEN: No vessel pulsations or distention. No tenderness. No organomegaly appreciated. Bowel sounds are normally heard. : Deferred. RECTAL: Deferred. LYMPHATIC: No lymphadenopathy noted in the neck. EXTREMITIES: No edema or cyanosis. No clubbing. MUSCULOSKELETAL: No acute joint deformities or swelling SKIN: There are no significant rashes or ecchymosis NEUROPSYCHIATRIC: The patient is alert and oriented x3. Appears to be in a good mood. No tremors or rigidity noted. Urinary Catheter Management: Fall: Cath Placed During This Visit: yes, but has since been removed by the nurse Reason for Continuing Indwelling Catheter: Accurate Measurement of Urinary Output in Critically Ill Patients Urinary Catheter Date of Insertion: 12/04/21 Urinary Catheter Time of Insertion: 05:00 Date Urinary Catheter Removed: 12/10/21 Time Urinary Catheter Discontinued: 13:49 Data : 12/10/21 05:50 12/10/21 05:50 Other Labs: Laboratory Last Values WBC 5.4 10^3/uL (4.0-10.0) 12/10/21 05:50 RBC 3.17 10^6/uL (4.1-5.3) L 12/10/21 05:50 Hgb 8.7 g/dL (11.5-15.3) L 12/10/21 05:50 Hct 27.1 % (37.0-47.0) L 12/10/21 05:50 MCV 85.5 fl (81-99) 12/10/21 05:50 MCH 27.4 pg (28.0-34.0) L 12/10/21 05:50 MCHC 32.1 g/dL (30.0-36.0) 12/10/21 05:50 RDW 14.1 % (12.1-15.1) 12/10/21 05:50 Plt Count 225 10^3/cmm (130-400) 12/10/21 05:50 MPV 9.8 fL (7.4-10.4) 12/10/21 05:50 Neut % (Auto) 65.2 % 12/10/21 05:50 Lymph % (Auto) 22.6 % 12/10/21 05:50 [place] % (Auto) 9.0 % 12/10/21 05:50 Eos % (Auto) 1.8 % 12/10/21 05:50 Baso % (Auto) 0.7 % 12/10/21 05:50 Neut # (Auto) 3.54 10^3/uL (1.8-7.7) 12/10/21 05:50 Lymph # (Auto) 1.2 10^3/uL (0.8-4.8) 12/10/21 05:50 [place] # (Auto) 0.5 10^3/uL (0.2-0.9) 12/10/21 05:50 Eos # (Auto) 0.1 10^3/uL (0.0-0.8) 12/10/21 05:50 Baso # (Auto) 0.0 10^3/uL (0.0-0.1) 12/10/21 05:50 Nucleated RBC % (auto) 0 % 12/10/21 05:50 Nucleated RBCs # 0.0 /100WBC 12/10/21 05:50 D-Dimer 2.91 ug/mIFEU (0-0.59) H 12/04/21 08:53 Specimen Type Arterial 12/05/21 16:17 Sample Site Radial, left 12/05/21 16:17 ABG pH 7.26 (7.35-7.45) L 12/05/21 16:17 ABG pCO2 54.3 mmHg (35-45) H 12/05/21 16:17 ABG pO2 73.9 mmHg (80.0-100.0) L 12/05/21 16:17 ABG HCO3 24.6 mmol/L (22-26) 12/05/21 16:17 ABG O2 Saturation 88.5 12/05/21 13:41 ABG Base Excess -2.7 mmol/L (-2.0-2.0) L 12/05/21 16:17 Kaushik Test Pos 12/05/21 16:17 A-a O2 Gradient 11.7 mmHg (5-10) H 12/05/21 13:41 Hematocrit 28.8 % (37-47) L 12/05/21 16:17 Hgb O2 Saturation 86.9 % (95-100) L 12/05/21 13:41 Carboxyhemoglobin 1.0 %THgb (0.4-20.1) 12/05/21 13:41 Methemoglobin 0.8 % (0.4-1.5) 12/05/21 13:41 Total Hemoglobin 9.9 g/dL (12-16) L 12/05/21 13:41 Sodium 138.0 mmol/L (131-143) 12/05/21 13:41 Potassium 4.9 mmol/L (3.5-5.0) 12/05/21 13:41 Glucose 157.0 mg/dL (70-115) H 12/05/21 13:41 Ionized Calcium 1.2 mmol/L (1.1-1.4) 12/05/21 13:41 O2 Delivery Device Nc 12/05/21 16:17 O2 Liters/Min 4.0 % 12/05/21 16:17 FiO2 36.0 % 12/05/21 16:17 Tidal Volume 0.40 12/05/21 04:00 PEEP 5.0 cmH20 12/05/21 04:00 Log Deck Tender ID Cak 12/05/21 16:17 Sodium 142 mmol/L (136-145) 12/10/21 05:50 Potassium 4.1 mmol/L (3.5-5.1) 12/10/21 05:50 Chloride 107 mmol/L (98-107) 12/10/21 05:50 Carbon Dioxide 27 mmol/L (22-29) 12/10/21 05:50 Anion Gap 12.1 (5-19) 12/10/21 05:50 BUN 33 mg/dL (6-20) H 12/10/21 05:50 Creatinine 1.7 mg/dL (0.5-0.9) H 12/10/21 05:50 GFR Calculation 33.3 mL/min (90-130) L 12/10/21 05:50 Glucose 123 mg/dL (65-115) H 12/10/21 05:50 POC Glucose 406 mg/dL (70-110) H 12/11/21 16:51 Calculated Osmolality 303 mOsm/kg (285-295) H 12/10/21 05:50 Lactic Acid 0.6 mmol/L (0.5-2.2) 12/04/21 04:40 Uric Acid 5.8 mg/dL (2.4-5.7) H 12/06/21 02:33 Calcium 8.1 mg/dL (8.5-10.5) L 12/10/21 05:50 Magnesium 2.0 mg/dL (1.7-2.3) 12/10/21 05:50 Iron 51 ug/dL (37-145) 12/08/21 04:10 TIBC 218 mcg/dl 12/08/21 04:10 % Saturation 23.3 % (20-50) 12/08/21 04:10 Unsat Iron Binding 167 ug/dL (112-347) 12/08/21 04:10 Ferritin 101 ng/mL (15-150) 12/08/21 04:10 Total Bilirubin 0.2 mg/dL (0.15-1.2) 12/08/21 04:10 AST 8 U/L (0-32) 12/08/21 04:10 ALT 12 U/L (0-33) 12/08/21 04:10 Alkaline Phosphatase 112 IU/L (35-105) H 12/08/21 04:10 Creatine Kinase 123 U/L (26-192) 12/07/21 08:41 Troponin T Baseline 51 ng/L (0-10) H 12/04/21 04:40 Troponin T 120 Minute 56.39 ng/L (0-10) H 12/04/21 06:39 Delta Troponin T 5.39 ABS# (0-10) 12/04/21 06:39 Troponin T Hi Sens 6Hr 62.85 ng/L (0-10) H 12/04/21 10:49 Troponin T Hi Sens 6Hr Delta 11.85 ng/L (0-12) 12/04/21 10:49 C-Reactive Protein 4.9 mg/L (0.0-4.9) 12/04/21 04:40 NT-Pro-B Natriuret Pep 4152 pg/mL (0-125) H 12/04/21 04:40 Total Protein 5.3 g/dL (6.6-8.7) L 12/08/21 04:10 Albumin 2.9 g/dL (3.5-5.2) L 12/08/21 04:10 Globulin 2.4 g/dL (1.3-4.6) 12/08/21 04:10 Procalcitonin 0.58 ng/mL (0-0.5) H 12/04/21 04:40 TSH 3.05 uIU/mL (0.27-4.20) 12/05/21 03:36 Ser , Semi-Qnt 0.50 mIU/mL 12/07/21 03:03 Random Cortisol 2.17 ug/dL (2.47-19.5) L 12/05/21 03:36 Urine Color Yellow (Yellow) 12/06/21 12:27 Urine Appearance Sl hazy (CLEAR) 12/06/21 12:27 Urine pH 6.5 (5-7) 12/06/21 12:27 Ur Specific [place] 1.025 (1.005-1.030) 12/06/21 12:27 Urine Protein 3+ (Negative) H 12/06/21 12:27 Urine Glucose (UA) 2+ (Normal) H 12/06/21 12:27 Urine Ketones Negative (Negative) 12/06/21 12:27 Urine Blood 2+ (Negative) H 12/06/21 12:27 Urine Nitrate Positive (Negative) H 12/06/21 12:27 Urine Bilirubin Neg (Negative) 12/06/21 12:27 Urine Urobilinogen Norm mg/dL (Negative) 12/06/21 12:27 Ur Leukocyte Esterase Trace (Negative) H 12/06/21 12:27 Urine RBC 0-4 /hpf (0-2) H 12/06/21 12:27 Urine WBC 0-4 /hpf (0-5) H 12/06/21 12:27 Ur Squamous Epith Cells 0-4 /hpf (0-5) H 12/06/21 12:27 Amorphous Sediment Trace /hpf 12/06/21 12:27 Urine Bacteria 1+ /hpf (NONE) H 12/06/21 12:27 Hyaline Casts 0-4 /lpf H 12/04/21 04:58 Coarse Granular Casts 0-4 /lpf H 12/04/21 04:58 Urine Mucus Trace /hpf 12/06/21 12:27 U Random Total Protein 331 mg/dL 12/07/21 11:00 Ur Random Sodium < 10 mmol/L 12/06/21 12:27 Ur Random Urea Nitrogn 487 mg/dL 12/06/21 12:27 Urine Creatinine 63 mg/dL (28-217) 12/07/21 11:00 Coronavirus 229E (PCR) Not detected (NOT DETECT) 12/04/21 06:30 SARS-CoV-2 (PCR) Not detected (NOT DETECT) 12/04/21 06:30 A&P Assessment and plan (1) Diastolic heart failure: The heart failure relative seems to be compensated. At this point, may continue on the current medications. Myocardial perfusion imaging in the morning. Continue on the current medications. I may change the IV Lasix to p.o. Status: Acute (2) Adrenal insufficiency: Continue on the current management. Follow-up evaluation as scheduled. Status: Acute (3) Hypertension: Currently the blood pressure is in the normal range. Continue on the current medication. Status: Acute (4) Type 1 diabetes mellitus: The blood sugar seems to be under control. Continue on the current management. Status: Acute Qualifiers: Diabetes mellitus complication status: with hyperglycemia Qualified Code(s): E10.65 - Type 1 diabetes mellitus with hyperglycemia (5) Chronic kidney disease: The kidney function seems stable. Management as per the nephrology service Status: Acute Plan Based on the results of the perfusion scan, further recommendations will be made. Will discontinue the IV Lasix. Started on Lasix 40 mg p.o. daily Attestations Medical Necessity Statement*: Disposition as per the primary 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 of Care Code Acute Technician Chemical Cleaning for Chg Fwd History Expanded Problem Focused Exam Detailed Medical Decision Making Moderate Complexity Diagnoses Diastolic heart failure I50.30 Adrenal insufficiency E27.40 Hypertension I10 Type 1 diabetes mellitus E10.65 Diabetes mellitus complication status: with hyperglycemia Chronic kidney disease N18.9
[2021-12-11] MEDS: losartan 50 mg Tablet 25 MG PO (09:54)
[2021-12-11] MEDS: hydrocortisone 10 mg Tablet 20 MG PO (09:54)
[2021-12-11] MEDS: amlodipine 5 mg Tablet 2.5 MG PO (09:55)
[2021-12-11] MEDS: ferric gluconate 125 MG in sodium chloride 0.9% (100 ml) 100 ML 110 MG IV (09:55)
[2021-12-11 10:58] LABS: Glucose Point of Care 314 mg/dL (70-110)
[2021-12-11] MEDS: insulin glargine 100 units/1 mL 14 UNIT SUBCUT ×2 (13:33→21:02)
[2021-12-11 16:59] LABS: Glucose Point of Care 406 mg/dL (70-110)
--- NOTE | 2021-12-11 17:32 | P.PN_ITS ---
Subjective Subjective: Hospital events, labs appreciated. No acute events overnight. Patient denies any nausea vomiting, headache. Currently on 2 L satting 97%. Has remained hemodynamically stable. Medications: Reviewed: Yes Vitals/I&O/Wt Last Vital Signs Temp 98.7 F 12/11/21 15:00 Pulse 99 12/11/21 15:00 Resp 16 12/11/21 15:00 BP 104/57 12/11/21 15:00 Pulse Ox 97 12/11/21 15:00 12/11/21 12/11/21 12/11/21 06:59 14:59 22:59 Intake Total 2069 460 / 460 Output Total 500 / 500 Balance 50 / 1820 -40 / -40 Physical Exam Narrative: GenNERAL: The patient is alert and oriented times three. Not in any acute distress. RESPIRATORY: Chest is symmetrical. No intercostals muscle retraction or any accessory muscle activation. There is no chest wall tenderness. Breath sounds are heard bilaterally. No rales or rhonchi heard. No evidence of any consolidation.? Diminished intensity of breath sounds in the bases. HEART: The heart sounds are normal.? No S3 or S4.? Short systolic murmur at the base of the heart.? ABDOMEN: Soft, nontender EXTREMITIES: Trace edema Urinary Catheter Management: Fall: Cath Placed During This Visit: yes, but has since been removed by the nurse Reason for Continuing Indwelling Catheter: Accurate Measurement of Urinary Output in Critically Ill Patients Urinary Catheter Date of Insertion: 12/04/21 Urinary Catheter Time of Insertion: 05:00 Date Urinary Catheter Removed: 12/10/21 Time Urinary Catheter Discontinued: 13:49 Data : 12/10/21 05:50 12/10/21 05:50 A&P Assessment and plan (1) Elevated troponin: Status: Acute (2) Diastolic heart failure: Status: Acute (3) Adrenal insufficiency: Status: Acute (4) Type 1 diabetes mellitus: Status: Acute Qualifiers: Diabetes mellitus complication status: with hyperglycemia Qualified Code(s): E10.65 - Type 1 diabetes mellitus with hyperglycemia (5) Hypertension: Status: Acute (6) Generalized weakness: Status: Acute (7) Cerebellar cerebrovascular accident (CVA) without late effect: Status: Acute (8) Hyperkalemia: Status: Acute (9) Anemia: Status: Acute (10) Chronic kidney disease: Status: Acute (11) Pneumonia: Status: Acute (12) Acute respiratory failure with hypoxia and hypercapnia: Status: Acute (13) Depression: Status: Inactive Qualifiers: Active/Remission status: currently active Depression Type: major depressive disorder Major depression episode severity: severe Major depression recurrence: recurrent Psychotic features: without psychotic features Qualified Code(s): F33.2 - Major depressive disorder, recurrent severe without psychotic features (14) Pulmonary edema: Status: Acute (15) Respiratory failure: Status: Acute Qualifiers: Chronicity: acute Respiratory failure complication: hypoxia and hypercapnia Qualified Code(s): J96.01 - Acute respiratory failure with hypoxia; J96.02 - Acute respiratory failure with hypercapnia (16) Diabetic nephropathy: Status: Acute (17) Homeless: Status: Inactive Plan #Acute respiratory failure with hypoxia and hypercapnia #Vent dependent respiratory failure?resolved #Pneumonia on admission #Chronic anemia #MARCELA on CKD secondary to contrast versus cardiorenal #Hyperkalemia #Type II OH/demand ischemia #History of stroke May 2021 #Type 1 diabetes mellitus with hyperglycemia #Adrenal insufficiency -Extubated December 06.? Still requiring BiPAP on and off.? There is evidence of pulmonary edema on x-ray today.? Her baseline oxygen is 2 L.? Urine output 2700 since yesterday. ? Continue DuoNeb every 6 hours as needed ? Continue linezolid and Zosyn MRSA PCR pending Blood culture 1 out of 4 positive for staph epidermidis possibly contamination ? Echo limited and of poor quality but EF appeared normal ? Troponin elevation most likely type II demand ischemia ? Plan for stress test this Saturday ? Continue Lasix 60 IV daily. ? Creatinine improving gradually.? Nephrology consulted.? Unsure if there is a contrast component versus cardiorenal.? CT ruled out hydronephrosis although renal ultrasound had a concern of it.? Nephro consulted.? Appreciate recommendations ? Continue Plavix and aspirin.? Hold statin for now secondary to renal dysfunction. ? Continue on insulin ? Continue on maintenance dose steroid 20 in a.m. and 10 PM.? Will need endocrinology follow-up at discharge ? Cardiology following.? Recommendations appreciated Full code Heparin for DVT prophylaxis Plan for day: Oxygen supplementation keeping saturation over 90%. Finished 7- day course of linezolid and Zosyn. Plan for Lexiscan stress test tomorrow morning. Decrease dose of hydrocortisone to 10 mg twice daily. Increase Lantus to 14 units twice daily. High-dose insulin sliding scale. Monitor sugar closely. Attestations Medical Necessity Statement*: Requires further hospitalization for management of hypoxia secondary to pneumonia, non-ST elevation OH requiring ischemic work- up, adrenal insufficiency while steroid dose was tapered. Time Spent in Patient Care: Greater than 35 minutes 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 of Care Code Acute Interventional Radiology Technologist for [facility] Fwd Diagnoses Diastolic heart failure I50.30 Diabetic nephropathy E11.21 Adrenal insufficiency E27.40 Hypertension I10 Generalized weakness R53.1 Type 1 diabetes mellitus E10.65 Diabetes mellitus complication status: with hyperglycemia Cerebellar cerebrovascular accident (CVA) without late effect Z86.73 Elevated troponin R77.8 Hyperkalemia E87.5 Anemia D64.9 Chronic kidney disease N18.9 Pneumonia J18.9 Acute respiratory failure with hypoxia and hypercapnia J96.01; J96.02 Depression F33.2 Active/Remission status: currently active Depression Type: major depressive disorder Major depression episode severity: severe Major depression recurrence: recurrent Psychotic features: without psychotic features Pulmonary edema J81.1 Respiratory failure J96.01; J96.02 Chronicity: acute Respiratory failure complication: hypoxia and hypercapnia Homeless Z59.00
[2021-12-11] MEDS: insulin lispro 100 unit/1 mL SUBCUT (18:18)
[2021-12-11] MEDS: FUROsemide 10 mg/mL SDV 4mL 40 MG IVP (18:18)
[2021-12-11] MEDS: hydrocortisone 10 mg Tablet PO (18:19)
[2021-12-11] MEDS: ferrous gluconate 324 mg Tablet PO (18:19)
[2021-12-11] MEDS: metoprolol tartrate 50 mg Tablet PO (21:02)
[2021-12-11] MEDS: acetaminophen 325 mg Tablet 650 MG PO (21:14)
[2021-12-11 21:18] LABS: Glucose Point of Care 192 mg/dL (70-110)
[2021-12-11] MEDS: LORazepam 1 mg Tablet PO (22:05)
[2021-12-12] VITALS (12 sets, daily range): BP systolic 129–160; BP diastolic 74–83; PULSE 79–99; RESP 15–18; TEMP 36.3–36.6; O2SAT 94–100
[2021-12-12] MEDS: heparin 5,000 unit/mL INJ 1 mL 5000 UNIT SUBCUT ×2 (00:52→16:21)
[2021-12-12 03:26] LABS: Basophils % 0.5 %; Eosinophils # 0.1 10^3/uL (0.0-0.8); Eosinophils % 1.6 %; Hematocrit 28.1 % (37.0-47.0); Lymphocytes # 1.6 10^3/uL (0.8-4.8); Mean Corpuscular Hemoglobin 27.2 pg (28.0-34.0); Mean Corpuscular Volume 84.9 fl (81-99); Mean Platelet Volume 9.5 fL (7.4-10.4); Monocytes # 0.4 10^3/uL (0.2-0.9); Monocytes % 4.7 %; Neutrophils # 5.89 10^3/uL (1.8-7.7); Neutrophils % 72.6 %; Nucleated Red Blood Cells % 0 %; Platelet Count 253 10^3/cmm (130-400); Red Blood Count 3.31 10^6/uL (4.1-5.3); Red Cell Distribution Width 13.7 % (12.1-15.1); White Blood Count 8.1 10^3/uL (4.0-10.0)
[2021-12-12] MEDS: ipratropium-albuterol 3 mL Neb INHALATION ×4 (03:37→22:13)
[2021-12-12 03:50] LABS: Alanine Aminotransferase 21 U/L (0-33); Albumin Level 3.1 g/dL (3.5-5.2); Alkaline Phosphatase 115 IU/L (35-105); Anion Gap 12.3 (5-19); Aspartate Amino Transferase 13 U/L (0-32); Blood Urea Nitrogen 29 mg/dL (6-20); Calcium 8.8 mg/dL (8.5-10.5); Carbon Dioxide 28 mmol/L (22-29); Chloride 101 mmol/L (98-107); Globulin 2.5 g/dL (1.3-4.6); Glomerular Filtration Rate 35.7 mL/min (90-130); Glucose 104 mg/dL (65-115); Magnesium 1.9 mg/dL (1.7-2.3); Osmolality Calculated 290 mOsm/kg (285-295); Phosphorus 3.8 mg/dL (2.5-4.5); Potassium 4.3 mmol/L (3.5-5.1); Sodium 137 mmol/L (136-145); Total Bilirubin 0.2 mg/dL (0.15-1.2); Total Protein 5.6 g/dL (6.6-8.7)
[2021-12-12 06:46] LABS: Glucose Point of Care 89 mg/dL (70-110)
--- NOTE | 2021-12-12 06:47 | P.PN_ITS ---
Subjective Subjective: feels well on nc02. no n/v/f/c/bray/d/sob/edema. is sad. weak, poor appetite. Medications: Reviewed: Yes Medication Review Details: Current Medications Acetaminophen (Acetaminophen 325 Mg Tablet) 650 mg PO Q6H PRN PRN Reason: MILD PAIN Last Admin: 12/11/21 21:14 Dose: 650 mg Documented by: Albuterol/Ipratropium (Ipratropium-Albuterol 3 Ml Neb) 3 ml INHALATION Q6H [facility] Last Admin: 12/12/21 03:37 Dose: 3 ml Documented by: Aminophylline (Aminophylline 25 Mg/Ml Sdv 10 Ml) 25 mg IVP Q2M PRN PRN Reason: see dose instructions Stop: 12/12/21 07:06 Amlodipine Besylate (Amlodipine 5 Mg Tablet) 2.5 mg PO DAILY [facility] Last Admin: 12/11/21 09:55 Dose: 2.5 mg Documented by: Aspirin (Aspirin 81 Mg Ec Tablet) 81 mg PO DAILY [facility] Last Admin: 12/11/21 08:27 Dose: 81 mg Documented by: Clopidogrel Bisulfate (Clopidogrel 75 Mg Tablet) 75 mg PO DAILY [facility] Last Admin: 12/11/21 08:27 Dose: 75 mg Documented by: Dextrose (Dextrose 50% Syringe 50 Ml) 50 ml IVP PRN PRN; Protocol PRN Reason: hypoglycemia protocol Ferrous Gluconate (Ferrous Gluconate 324 Mg Tablet) 324 mg PO BIDWM [facility] Last Admin: 12/11/21 18:19 Dose: 324 mg Documented by: Furosemide (Furosemide 40 Mg Tablet) 40 mg PO DAILY@0800 [facility] Glucagon (Glucagon 1 Mg/Ml Inj 1 Ml) 1 mg IM ONCE PRN; Protocol PRN Reason: Adult Acute Hypoglycemia Prot. Heparin Sodium (Porcine) (Heparin 5,000 Unit/Ml Inj 1 Ml) 5,000 unit SUBCUT Q12H [facility] Last Admin: 12/12/21 00:52 Dose: 5,000 unit Documented by: Hydralazine HCl (Hydralazine 20 Mg/Ml Inj 1 Ml) 10 mg IVP Q4H PRN PRN Reason: spb>180 dbp >110 Hydrocortisone (Hydrocortisone 10 Mg Tablet) 10 mg PO BID [facility] Last Admin: 12/11/21 18:19 Dose: 10 mg Documented by: Dextrose (D5w) 500 mls @ 100 mls/hr IV ONCE PRN; Protocol PRN Reason: Adult Acute Hypoglycemia Prot Linezolid (Zyvox Premix) 600 mg in 300 mls @ 300 mls/hr IV Q12H [facility]; Protocol Stop: 12/12/21 07:29 Last Infusion: 12/11/21 19:23 Dose: Infused Documented by: Ferric Sodium Gluconate 125 mg (/ Sodium Chloride) 110 mls @ 110 mls/hr IV Q24H [facility] Stop: 12/18/21 09:59 Last Infusion: 12/11/21 11:02 Dose: Infused Documented by: Insulin Glargine (Insulin Glargine 100 Units/1 Ml) 14 unit SUBCUT BID@0900,2100 [facility] Last Admin: 12/11/21 21:02 Dose: 14 unit Documented by: Insulin Human Lispro (Insulin Lispro 100 Unit/1 Ml) 0 unit SUBCUT WM&BEDTIME [facility]; Protocol Last Admin: 12/11/21 21:02 Dose: Not Given Documented by: Losartan Potassium (Losartan 50 Mg Tablet) 25 mg PO DAILY [facility] Last Admin: 12/11/21 09:54 Dose: 25 mg Documented by: Metoclopramide HCl (Metoclopramide 5 Mg/Ml Sdv 2 Ml) 10 mg IVP Q6H PRN PRN Reason: NAUSEA AND VOMITING Last Admin: 12/05/21 16:31 Dose: 10 mg Documented by: Metoprolol Tartrate (Metoprolol Tartrate 50 Mg Tablet) 50 mg PO BID@0900,2100 [facility] Last Admin: 12/11/21 21:02 Dose: 50 mg Documented by: Nitroglycerin (Nitroglycerin 0.4 Mg Sublingual Tablet) 0.4 mg SUBLINGUAL Q5M PRN PRN Reason: CHEST PAIN Stop: 12/12/21 07:06 Ondansetron HCl (Ondansetron 2 Mg/Ml Sdv 2 Ml) 4 mg IVP Q6H PRN PRN Reason: NAUSEA AND VOMITING Last Admin: 12/05/21 14:26 Dose: 4 mg Documented by: Ondansetron HCl (Ondansetron 2 Mg/Ml Sdv 2 Ml) 4 mg IVP Q2M PRN PRN Reason: NAUSEA Pantoprazole Sodium (Pantoprazole 40 Mg Sdv) 40 mg IVP Q24H [facility] Last Admin: 12/11/21 08:27 Dose: 40 mg Documented by: Paroxetine HCl (Paroxetine 20 Mg Tablet) 20 mg PO QAM [facility] Last Admin: 12/11/21 08:27 Dose: 20 mg Documented by: Regadenoson (Regadenoson 0.4 Mg/5 Ml Syringe) 0.4 mg IVP ONCE PRN PRN Reason: Lexiscan Stress Test Vitals/I&O/Wt Last Vital Signs Temp 97.9 F 12/12/21 04:00 Pulse 83 12/12/21 04:00 Resp 17 12/12/21 04:00 BP 156/74 12/12/21 04:00 Pulse Ox 99 12/12/21 04:00 12/11/21 12/11/21 12/12/21 14:59 22:59 06:59 Intake Total 460 / 460 1140 / 1600 480 / 2080 Output Total 500 / 500 1650 / 2150 400 / 2550 Balance -40 / -40 -510 / -550 80 / -470 Weight last 48 hrs Weight 61.416 kg Physical Exam Narrative: using nc 02, sitting up in bed vss henet- nc/at, eomi, anicteric neck supple lungs good air movement b/l heart reg, +CARLYN abd soft, nt, nd, + bs ext trace leg edema neuro- a,a, o x 3 Urinary Catheter Management: Fall: Cath Placed During This Visit: yes, but has since been removed by the nurse Reason for Continuing Indwelling Catheter: Accurate Measurement of Urinary Output in Critically Ill Patients Urinary Catheter Date of Insertion: 12/04/21 Urinary Catheter Time of Insertion: 05:00 Date Urinary Catheter Removed: 12/10/21 Time Urinary Catheter Discontinued: 13:49 Data : 12/12/21 03:08 12/12/21 03:08 A&P Assessment and plan (1) Diabetic nephropathy: 41 yr old female 1. MARCELA -improving- D Dx is CI- MARCELA, Prerenal from CRS 2. CKD from DM- likely stage 3. monitor where cr plateaus -once stable- she should use an ARB and likely Farxigia -no hydronephrosis on ct scan -monitor k, cr, bp w/ ARB 3. anemia - ferritin 101, tsat 23%- iv iron as infection improved. needs complete NANCI evaluation -hgb stable 4.DM control per medicine 5. pna improved 6.moderate pleural effusions and small pericardial effusion- cardiology/ pulm/ renal fu- on oral lasix as per cardiology -she appears euvolemic on exam 7. adrenal insufficiency per chart- outpt f/u bp stable seen and examined w/ RN- telehealth visit time spent 30 min Status: Acute Plan see above Attestations Medical Necessity Statement*: per emdicine Time Spent in Patient Care: 16 - 35 minutes (>than 50% of time spent in counselling and/or direct pt care on unit) . 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 of Care Code Acute Arts Therapist for [facility] Diagnoses Diabetic nephropathy E11.21
--- NOTE | 2021-12-12 07:00 | ECG_ITS ---
[facility] Test Date: 2021-12-12 Pat Name: Mariana Ace Department: Room: 279 Gender: Female E Business Consultant: Marlena Landrum : 1980 Requested By: Coreen Ramos Order Number: [id number] Katelin MD: Coreen Ramos M.D. Interpretive Statements NAME OF STUDY: LEXISCAN SESTAMIBI STRESS TEST INDICATION: ARRYTHMIA, PROCEDURE: At the baseline, the EKG revealed normal sinus rhythm with a poor R wave progression. Some nonspecific T wave changes. The baseline blood pressure was 148/83 mm Hg with a heart rate of 84 beats/min. Lexiscan was infused over a period of 20 seconds. A total of 0.4 milligrams of Lexiscan was infused. The stress phase was continued for a total of 5 minutes. Heart rate at the end of the stress phase was 101 with a blood pressure 137/75. The EKG at the peak infusion revealed no significant changes. Sestamibi was injected 20 seconds after the Lexiscan infusion. Blood pressure at the end of the recovery phase was 128/74 with a heart rate of 99 per minute. CONCLUSION: 1. No significant EKG changes with the LexiScan infusion 2. No LexiScan induced chest pain or cardiac arrhythmia 3. Normal blood pressure and heart rate response 4. Sestamibi/sestamibi perfusion scan pending; see separate report. Electronically Signed On 12-15-2021 7:01:41 CDT by Coreen Ramos M.D. [email or web address]
--- NOTE | 2021-12-12 07:11 | SUR.PREOP ---
Stress initiated 12/11 but postponed until today. Resumed this morning. No change in assessment.
--- NOTE | 2021-12-12 08:28 | PM.PN ---
Subjective Subjective: The patient had the Myocardial perfusion imaging today. She was found to have a small to moderate area of ischemia in the distribution of the left circumflex artery. She denies any chest pain at this time. Her heart failure seems to be fairly compensated at this point. Medications: Medication Review Details: Current Medications Acetaminophen (Acetaminophen 325 Mg Tablet) 650 mg PO Q6H PRN PRN Reason: MILD PAIN Last Admin: 12/11/21 21:14 Dose: 650 mg Documented by: Albuterol/Ipratropium (Ipratropium-Albuterol 3 Ml Neb) 3 ml INHALATION Q6H [facility] Last Admin: 12/12/21 03:37 Dose: 3 ml Documented by: Aminophylline (Aminophylline 25 Mg/Ml Sdv 10 Ml) 25 mg IVP Q2M PRN PRN Reason: see dose instructions Stop: 12/13/21 07:08 Amlodipine Besylate (Amlodipine 5 Mg Tablet) 2.5 mg PO DAILY [facility] Last Admin: 12/11/21 09:55 Dose: 2.5 mg Documented by: Aspirin (Aspirin 81 Mg Ec Tablet) 81 mg PO DAILY [facility] Last Admin: 12/11/21 08:27 Dose: 81 mg Documented by: Clopidogrel Bisulfate (Clopidogrel 75 Mg Tablet) 75 mg PO DAILY [facility] Last Admin: 12/11/21 08:27 Dose: 75 mg Documented by: Dextrose (Dextrose 50% Syringe 50 Ml) 50 ml IVP PRN PRN; Protocol PRN Reason: hypoglycemia protocol Ferrous Gluconate (Ferrous Gluconate 324 Mg Tablet) 324 mg PO BIDWM [facility] Last Admin: 12/11/21 18:19 Dose: 324 mg Documented by: Furosemide (Furosemide 40 Mg Tablet) 40 mg PO DAILY@0800 [facility] Glucagon (Glucagon 1 Mg/Ml Inj 1 Ml) 1 mg IM ONCE PRN; Protocol PRN Reason: Adult Acute Hypoglycemia Prot. Heparin Sodium (Porcine) (Heparin 5,000 Unit/Ml Inj 1 Ml) 5,000 unit SUBCUT Q12H [facility] Last Admin: 12/12/21 00:52 Dose: 5,000 unit Documented by: Hydralazine HCl (Hydralazine 20 Mg/Ml Inj 1 Ml) 10 mg IVP Q4H PRN PRN Reason: spb>180 dbp >110 Hydrocortisone (Hydrocortisone 10 Mg Tablet) 10 mg PO BID [facility] Last Admin: 12/11/21 18:19 Dose: 10 mg Documented by: Dextrose (D5w) 500 mls @ 100 mls/hr IV ONCE PRN; Protocol PRN Reason: Adult Acute Hypoglycemia Prot Ferric Sodium Gluconate 125 mg (/ Sodium Chloride) 110 mls @ 110 mls/hr IV Q24H [facility] Stop: 12/18/21 09:59 Last Infusion: 12/11/21 11:02 Dose: Infused Documented by: Insulin Glargine (Insulin Glargine 100 Units/1 Ml) 14 unit SUBCUT BID@0900,2100 [facility] Last Admin: 12/11/21 21:02 Dose: 14 unit Documented by: Insulin Human Lispro (Insulin Lispro 100 Unit/1 Ml) 0 unit SUBCUT WM&BEDTIME [facility]; Protocol Last Admin: 12/11/21 21:02 Dose: Not Given Documented by: Losartan Potassium (Losartan 50 Mg Tablet) 25 mg PO DAILY [facility] Last Admin: 12/11/21 09:54 Dose: 25 mg Documented by: Metoclopramide HCl (Metoclopramide 5 Mg/Ml Sdv 2 Ml) 10 mg IVP Q6H PRN PRN Reason: NAUSEA AND VOMITING Last Admin: 12/05/21 16:31 Dose: 10 mg Documented by: Metoprolol Tartrate (Metoprolol Tartrate 50 Mg Tablet) 50 mg PO BID@0900,2100 [facility] Last Admin: 12/11/21 21:02 Dose: 50 mg Documented by: Nitroglycerin (Nitroglycerin 0.4 Mg Sublingual Tablet) 0.4 mg SUBLINGUAL Q5M PRN PRN Reason: CHEST PAIN Stop: 12/13/21 07:08 Ondansetron HCl (Ondansetron 2 Mg/Ml Sdv 2 Ml) 4 mg IVP Q6H PRN PRN Reason: NAUSEA AND VOMITING Last Admin: 12/05/21 14:26 Dose: 4 mg Documented by: Ondansetron HCl (Ondansetron 2 Mg/Ml Sdv 2 Ml) 4 mg IVP Q2M PRN PRN Reason: NAUSEA Pantoprazole Sodium (Pantoprazole 40 Mg Sdv) 40 mg IVP Q24H [facility] Last Admin: 12/11/21 08:27 Dose: 40 mg Documented by: Paroxetine HCl (Paroxetine 20 Mg Tablet) 20 mg PO QAM [facility] Last Admin: 12/11/21 08:27 Dose: 20 mg Documented by: Regadenoson (Regadenoson 0.4 Mg/5 Ml Syringe) 0.4 mg IVP ONCE PRN PRN Reason: Lexiscan Stress Test Vitals/I&O/Wt Last Vital Signs Temp 97.9 F 12/12/21 07:08 Pulse 85 12/12/21 07:08 Resp 16 12/12/21 07:08 BP 144/78 12/12/21 07:08 Pulse Ox 99 12/12/21 07:08 12/11/21 12/12/21 12/12/21 22:59 06:59 14:59 Intake Total 1140 / 1600 480 / 2080 Output Total 1650 / 2150 400 / 2550 Balance -510 / -550 80 / -470 Weight last 48 hrs Weight 135 lb 6.4 oz Physical Exam Narrative: GENERAL: The patient is alert and oriented times three. Not in any acute distress. HEENT: No significant pallor, icterus or lymphadenopathy.Oral cavity: There are no mucous membrane lesions. NECK: Trachea appears to be central. No masses noted. No JVD or thyromegaly appreciated. RESPIRATORY: Chest is symmetrical. No intercostals muscle retraction or any accessory muscle activation. There is no chest wall tenderness. Breath sounds are heard bilaterally.? No rales or rhonchi. No evidence of any consolidation. BREASTS: Deferred. HEART: The heart sounds are normal.? No S3 or S4. ? No significant murmurs.? No pericardial rub ABDOMEN: No vessel pulsations or distention. No tenderness. No organomegaly appreciated.? Bowel sounds are normally heard. : Deferred. RECTAL: Deferred. LYMPHATIC: No lymphadenopathy noted in the neck. EXTREMITIES: No edema or cyanosis. No clubbing. MUSCULOSKELETAL: No acute joint deformities or swelling SKIN: There are no significant rashes or ecchymosis NEUROPSYCHIATRIC: The patient is alert and oriented x3. Appears to be in a good mood. No tremors or rigidity noted. Urinary Catheter Management: Fall: Cath Placed During This Visit: yes, but has since been removed by the nurse Reason for Continuing Indwelling Catheter: Accurate Measurement of Urinary Output in Critically Ill Patients Urinary Catheter Date of Insertion: 12/04/21 Urinary Catheter Time of Insertion: 05:00 Date Urinary Catheter Removed: 12/10/21 Time Urinary Catheter Discontinued: 13:49 Data : 12/12/21 03:08 12/12/21 03:08 A&P Assessment and plan (1) Diastolic heart failure: In view of the recurrent heart failure and the abnormal perfusion scan, possibility of coronary ischemia causing the recurrent heart failure is a strong consideration. The implications of the Myocardial perfusion imaging results were discussed with the patient and her son in detail. This is understood well. For further evaluation of the patient's coronary status, she requires a cardiac catheterization. In view of her currently disease, she carries a high risk for the development of contrast-induced nephropathy. This also discussed in detail. Patient is wanting to go ahead with the procedure. We may schedule this procedure as early as possible. Based on the results, further recommendations will be made Status: Acute (2) Adrenal insufficiency: Continue on the current management. Follow-up evaluation as scheduled. Status: Acute (3) Hypertension: Currently the blood pressure is in the normal range. Continue on the current medication. Status: Acute (4) Type 1 diabetes mellitus: The blood sugar seems to be under control. Continue on the current management. Status: Acute Qualifiers: Diabetes mellitus complication status: with hyperglycemia Qualified Code(s): E10.65 - Type 1 diabetes mellitus with hyperglycemia (5) Chronic kidney disease: The kidney function seems stable. We will do careful IV hydration tonight. Repeat BMP in the morning. Status: Acute Plan If the BMP is acceptable, we may go ahead and do the cardiac catheterization in the morning. Based on the angiogram findings, further management decisions will be made. Attestations Medical Necessity Statement*: Patient requires continued hospital stay for close monitoring and further management 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 of Care Code Acute Silo Erector for [facility] Fwd History Expanded Problem Focused Exam Detailed Medical Decision Making Moderate Complexity Diagnoses Diastolic heart failure I50.30 Adrenal insufficiency E27.40 Hypertension I10 Type 1 diabetes mellitus E10.65 Diabetes mellitus complication status: with hyperglycemia Chronic kidney disease N18.9
--- NOTE | 2021-12-12 10:19 | P.DS_ITS ---
Discharge Providers Date of Admission: 12/04/21 09:55 Date of Discharge: December 12, 2021 Attending Provider at Admission: Ab Oro MD Attending Provider at Discharge: Dl Duran MD Consults: Cardiology: [facility] nephrology Diagnoses at Discharge Discharge Diagnosis (1) Diastolic heart failure: Status: Acute (2) Adrenal insufficiency: Status: Acute (3) Hypertension: Status: Acute (4) Type 1 diabetes mellitus: Status: Acute Qualifiers: Diabetes mellitus complication status: with hyperglycemia Qualified Code(s): E10.65 - Type 1 diabetes mellitus with hyperglycemia (5) Chronic kidney disease: Status: Acute Reason for Visit Reason for Visit: SOB Brief History: History as per HPI: Admitted on 12/04: Mariana Ace is a 41 year old female that presents from the halfway with increasing shortness of breath.? In the emergency department here she was intubated secondary to respiratory failure, as she presented on 12 L with a saturation of 90% only able to answer yes or no questions.? In the emergency department she received 60 mg of Lasix IV, and meds for rapid sequence intubation. According to nursing facility nurses she has been sick to 2 to 3 days with shortness of breath.? She had required oxygen.? She has had no recent choking, fever, or coughing.? She does not usually aspirate.? Typically she does ADLs on her own, but has difficulty walking although she has been doing it with therapy.? Blood sugars recently have been okay. 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 She was intubated and admitted to ICU. She was started on broad-spectrum antibiotics. During hospitalization blood cultures remain negative other than 1 out of 4 bottles from admission positive for staph epi dermatitis which was thought to be secondary to contamination, sputum culture remain negative MRSA was positive. COVID-19 PCR was negative. Patient has finished a course of antibiotics for Zosyn and vancomycin. On admission patient was found to be in slight pulmonary edema along with positive troponins for which she was started on IV diuresis. Echocardiogram was done which was of poor quality but was thought to have a grossly normal LV functions. Patient continued to have borderline low blood pressures during hospitalization along with borderline hyperkalemia on admission. Cortisol level was checked which is low to 2.17 given her clinical condition. Because of concern for adrenal insufficiency she was started on hydrocortisone after which her hypotension and vomiting resolved. She was transitioned over to oral prednisone for adrenal insufficiency. Once patient was euvolemic and resolution of respiratory failure she underwent cardiac stress test on 12/12. 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 Physical Exam Narrative: GenNERAL: The patient is alert and oriented times three. Not in any acute distress. RESPIRATORY: Chest is symmetrical. No intercostals muscle retraction or any accessory muscle activation. There is no chest wall tenderness. Breath sounds are heard bilaterally. No rales or rhonchi heard. No evidence of any consolidation.? Diminished intensity of breath sounds in the bases. HEART: The heart sounds are normal.? No S3 or S4.? Short systolic murmur at the base of the heart.? ABDOMEN: Soft, nontender EXTREMITIES: Trace edema Urinary Catheter Management: Fall: Cath Placed During This Visit: yes, but has since been removed by the nurse Reason for Continuing Indwelling Catheter: Accurate Measurement of Urinary Output in Critically Ill Patients Urinary Catheter Date of Insertion: 12/04/21 Urinary Catheter Time of Insertion: 05:00 Date Urinary Catheter Removed: 12/10/21 Time Urinary Catheter Discontinued: 13:49 Discharge Data Studies Completed and Pending Completed Studies During Hospitalization Category Date Time Status CT kidney stone 32876 Routine Cat Scan 12/08/21 11:21 Completed CTA chest [CT angio chest PE protcl [id number]] Routine Cat Scan 12/04/21 09:47 Completed CXRP [XR chest 1V portable [id number]] Stat Exams 12/09/21 13:40 Completed XR chest 1V portable [id number] Routine Exams 12/05/21 07:00 Completed XR chest 1V portable [id number] Routine Exams 12/07/21 07:00 Completed XR chest 1V portable [id number] Urgent Exams 12/04/21 04:46 Completed CV. echo limited 40716 Routine Ultrasound 12/04/21 08:07 Completed US renal BI* [id number] Routine Ultrasound 12/06/21 06:54 Completed US venous duplex lower extremity bilat [CV venous Ultrasound 12/04/21 09:47 [place] [id number]] Routine Pending at discharge Category Date Time Status Cardiac Stress Test MIBI [Sestamibi Stress Test Request Exams 12/06/21 09:18 Stop Req ] Routine Cardiac Stress Test MIBI [Sestamibi Stress Test Request Exams 12/11/21 07:07 Stop Req ] Routine Cardiac Stress Test MIBI [Sestamibi Stress Test Request Exams 12/12/21 07:00 Ordered ] Routine ABG FULL [Arterial Blood Gas Full] Stat Lab 12/09/21 14:04 Received Complete Blood Count w/Auto AM LABS Lab 12/13/21 04:00 Ordered Complete Blood Count w/Auto AM LABS Lab 12/14/21 04:00 Ordered Comprehensive Metabolic Panel AM LABS Lab 12/13/21 04:00 Ordered Comprehensive Metabolic Panel AM LABS Lab 12/14/21 04:00 Ordered Fecal Occult Blood [Immunochemical Fecal OCB] Routine Lab 12/04/21 04:55 Ordered Magnesium AM LABS Lab 12/13/21 04:00 Ordered Magnesium AM LABS Lab 12/14/21 04:00 Ordered Phosphorus AM LABS Lab 12/13/21 04:00 Ordered Phosphorus AM LABS Lab 12/14/21 04:00 Ordered NM nicky perf SPECT r/s* [id number] Routine Nuc Med 12/12/21 13:01 Ordered Radiology Impressions Chest CTA 12/04/21 09:47 IMPRESSION: 1. No evidence of pulmonary embolus. 2. Small RIGHT greater than LEFT pleural effusions with compressive atelectasis in the lung bases. 3. Mild hazy groundglass infiltrates with interlobular septal thickening. Some of this likely due to pulmonary edema. 4. Hazy groundglass infiltrates in a perihilar distribution. Recommend correlation for pneumonia. 5. Endotracheal tube with tip above the lavon. Enteric tube with tip in the stomach. Renal Ultrasound 12/06/21 06:54 IMPRESSION: 1. Hydronephrosis of the right kidney. 2. Normal-appearing left kidney. 3. Fall catheter noted in the urinary bladder. 4. 5.2 x 5.8 x 2.8. Centimeter cystic lesion in the left adnexa. A dedicated pelvic ultrasound could be considered for further workup if thought to be clinically warranted. 5. No solid or cystic renal mass. Abdomen/Pelvis CT 12/08/21 11:21 IMPRESSION: 1. Moderate bilateral pleural effusions with basilar atelectasis. 2. Small pericardial effusion. 3. Hepatomegaly. 4. Subcutaneous edema around the abdomen consistent with anasarca. 5. No acute abnormalities are seen within the abdomen and pelvis. Chest X-Ray 12/09/21 13:40 IMPRESSION: 1. Stable left central line. 2. Continued mild right lower lung field pneumonia with increased [id number] left lower lung field pneumonia. Echocardiogram: CONCLUSIONS ?This is a limited quality echocardiogram because of poor ?ultrasonic windows ?LV systolic function is grossly normal.? Regional wall motion ?abnormalities cannot be assessed because of limited ?visualization. ?Valvular structures are not well visualized however grossly ?normal. ?Accuarate comparison with prior echocardiogram from 08/2021 not ?possible because of limited quality of current study ?Mustapha Stearns MD ?(Electronically Signed) ?Final Date:? ? ? 04 December 2021 ? 12:41 Laboratory Results WBC 8.1 10^3/uL (4.0-10.0) 12/12/21 03:08 RBC 3.31 10^6/uL (4.1-5.3) L 12/12/21 03:08 Hgb 9.0 g/dL (11.5-15.3) L 12/12/21 03:08 Hct 28.1 % (37.0-47.0) L 12/12/21 03:08 MCV 84.9 fl (81-99) 12/12/21 03:08 MCH 27.2 pg (28.0-34.0) L 12/12/21 03:08 MCHC 32.0 g/dL (30.0-36.0) 12/12/21 03:08 RDW 13.7 % (12.1-15.1) 12/12/21 03:08 Plt Count 253 10^3/cmm (130-400) 12/12/21 03:08 MPV 9.5 fL (7.4-10.4) 12/12/21 03:08 Neut % (Auto) 72.6 % 12/12/21 03:08 Lymph % (Auto) 20.0 % 12/12/21 03:08 [place]verse % (Auto) 4.7 % 12/12/21 03:08 Eos % (Auto) 1.6 % 12/12/21 03:08 Baso % (Auto) 0.5 % 12/12/21 03:08 Neut # (Auto) 5.89 10^3/uL (1.8-7.7) 12/12/21 03:08 Lymph # (Auto) 1.6 10^3/uL (0.8-4.8) 12/12/21 03:08 [place] # (Auto) 0.4 10^3/uL (0.2-0.9) 12/12/21 03:08 Eos # (Auto) 0.1 10^3/uL (0.0-0.8) 12/12/21 03:08 Baso # (Auto) 0.0 10^3/uL (0.0-0.1) 12/12/21 03:08 Nucleated RBC % (auto) 0 % 12/12/21 03:08 Nucleated RBCs # 0.0 /100WBC 12/12/21 03:08 D-Dimer 2.91 ug/mIFEU (0-0.59) H 12/04/21 08:53 Specimen Type Arterial 12/05/21 16:17 Sample Site Radial, left 12/05/21 16:17 ABG pH 7.26 (7.35-7.45) L 12/05/21 16:17 ABG pCO2 54.3 mmHg (35-45) H 12/05/21 16:17 ABG pO2 73.9 mmHg (80.0-100.0) L 12/05/21 16:17 ABG HCO3 24.6 mmol/L (22-26) 12/05/21 16:17 ABG O2 Saturation 88.5 12/05/21 13:41 ABG Base Excess -2.7 mmol/L (-2.0-2.0) L 12/05/21 16:17 Kaushik Test Pos 12/05/21 16:17 A-a O2 Gradient 11.7 mmHg (5-10) H 12/05/21 13:41 Hematocrit 28.8 % (37-47) L 12/05/21 16:17 Hgb O2 Saturation 86.9 % (95-100) L 12/05/21 13:41 Carboxyhemoglobin 1.0 %THgb (0.4-20.1) 12/05/21 13:41 Methemoglobin 0.8 % (0.4-1.5) 12/05/21 13:41 Total Hemoglobin 9.9 g/dL (12-16) L 12/05/21 13:41 Sodium 138.0 mmol/L (131-143) 12/05/21 13:41 Potassium 4.9 mmol/L (3.5-5.0) 12/05/21 13:41 Glucose 157.0 mg/dL (70-115) H 12/05/21 13:41 Ionized Calcium 1.2 mmol/L (1.1-1.4) 12/05/21 13:41 O2 Delivery Device Nc 12/05/21 16:17 O2 Liters/Min 4.0 % 12/05/21 16:17 FiO2 36.0 % 12/05/21 16:17 Tidal Volume 0.40 12/05/21 04:00 PEEP 5.0 cmH20 12/05/21 04:00 Net Developer With Wcf ID Cak 12/05/21 16:17 Sodium 137 mmol/L (136-145) 12/12/21 03:08 Potassium 4.3 mmol/L (3.5-5.1) 12/12/21 03:08 Chloride 101 mmol/L (98-107) 12/12/21 03:08 Carbon Dioxide 28 mmol/L (22-29) 12/12/21 03:08 Anion Gap 12.3 (5-19) 12/12/21 03:08 BUN 29 mg/dL (6-20) H 12/12/21 03:08 Creatinine 1.6 mg/dL (0.5-0.9) H 12/12/21 03:08 GFR Calculation 35.7 mL/min (90-130) L 12/12/21 03:08 Glucose 104 mg/dL (65-115) 12/12/21 03:08 POC Glucose 89 mg/dL (70-110) 12/12/21 06:25 Calculated Osmolality 290 mOsm/kg (285-295) 12/12/21 03:08 Lactic Acid 0.6 mmol/L (0.5-2.2) 12/04/21 04:40 Uric Acid 5.8 mg/dL (2.4-5.7) H 12/06/21 02:33 Calcium 8.8 mg/dL (8.5-10.5) 12/12/21 03:08 Phosphorus 3.8 mg/dL (2.5-4.5) 12/12/21 03:08 Magnesium 1.9 mg/dL (1.7-2.3) 12/12/21 03:08 Iron 51 ug/dL (37-145) 12/08/21 04:10 TIBC 218 mcg/dl 12/08/21 04:10 % Saturation 23.3 % (20-50) 12/08/21 04:10 Unsat Iron Binding 167 ug/dL (112-347) 12/08/21 04:10 Ferritin 101 ng/mL (15-150) 12/08/21 04:10 Total Bilirubin 0.2 mg/dL (0.15-1.2) 12/12/21 03:08 AST 13 U/L (0-32) 12/12/21 03:08 ALT 21 U/L (0-33) 12/12/21 03:08 Alkaline Phosphatase 115 IU/L (35-105) H 12/12/21 03:08 Creatine Kinase 123 U/L (26-192) 12/07/21 08:41 Troponin T Baseline 51 ng/L (0-10) H 12/04/21 04:40 Troponin T 120 Minute 56.39 ng/L (0-10) H 12/04/21 06:39 Delta Troponin T 5.39 ABS# (0-10) 12/04/21 06:39 Troponin T Hi Sens 6Hr 62.85 ng/L (0-10) H 12/04/21 10:49 Troponin T Hi Sens 6Hr Delta 11.85 ng/L (0-12) 12/04/21 10:49 C-Reactive Protein 4.9 mg/L (0.0-4.9) 12/04/21 04:40 NT-Pro-B Natriuret Pep 4152 pg/mL (0-125) H 12/04/21 04:40 Total Protein 5.6 g/dL (6.6-8.7) L 12/12/21 03:08 Albumin 3.1 g/dL (3.5-5.2) L 12/12/21 03:08 Globulin 2.5 g/dL (1.3-4.6) 12/12/21 03:08 Procalcitonin 0.58 ng/mL (0-0.5) H 12/04/21 04:40 TSH 3.05 uIU/mL (0.27-4.20) 12/05/21 03:36 Ser , Semi-Qnt 0.50 mIU/mL 12/07/21 03:03 Random Cortisol 2.17 ug/dL (2.47-19.5) L 12/05/21 03:36 Urine Color Yellow (Yellow) 12/06/21 12:27 Urine Appearance Sl hazy (CLEAR) 12/06/21 12:27 Urine pH 6.5 (5-7) 12/06/21 12:27 Ur Specific [place] 1.025 (1.005-1.030) 12/06/21 12:27 Urine Protein 3+ (Negative) H 12/06/21 12:27 Urine Glucose (UA) 2+ (Normal) H 12/06/21 12:27 Urine Ketones Negative (Negative) 12/06/21 12:27 Urine Blood 2+ (Negative) H 12/06/21 12:27 Urine Nitrate Positive (Negative) H 12/06/21 12:27 Urine Bilirubin Neg (Negative) 12/06/21 12:27 Urine Urobilinogen Norm mg/dL (Negative) 12/06/21 12:27 Ur Leukocyte Esterase Trace (Negative) H 12/06/21 12:27 Urine RBC 0-4 /hpf (0-2) H 12/06/21 12:27 Urine WBC 0-4 /hpf (0-5) H 12/06/21 12:27 Ur Squamous Epith Cells 0-4 /hpf (0-5) H 12/06/21 12:27 Amorphous Sediment Trace /hpf 12/06/21 12:27 Urine Bacteria 1+ /hpf (NONE) H 12/06/21 12:27 Hyaline Casts 0-4 /lpf H 12/04/21 04:58 Coarse Granular Casts 0-4 /lpf H 12/04/21 04:58 Urine Mucus Trace /hpf 12/06/21 12:27 U Random Total Protein 331 mg/dL 12/07/21 11:00 Ur Random Sodium < 10 mmol/L 12/06/21 12:27 Ur Random Urea Nitrogn 487 mg/dL 12/06/21 12:27 Urine Creatinine 63 mg/dL (28-217) 12/07/21 11:00 Coronavirus 229E (PCR) Not detected (NOT DETECT) 12/04/21 06:30 SARS-CoV-2 (PCR) Not detected (NOT DETECT) 12/04/21 06:30 Vitals Last Vital Signs Temp 97.9 F 12/12/21 07:08 Pulse 86 12/12/21 09:00 Resp 16 12/12/21 09:00 BP 144/78 12/12/21 07:08 Pulse Ox 99 12/12/21 09:00 Discharge Plan Discharge Patient Disposition: Xfer SNF Condition: Stable Prescriptions: New losartan 50 mg Tablet 25 mg PO DAILY Qty: 60 0RF furosemide 40 mg Tablet 40 mg PO DAILY@0800 Qty: 30 0RF hydrocortisone 10 mg Tablet 10 mg PO BID Qty: 60 0RF ferrous gluconate 324 mg (37.5 mg iron) Tablet 324 mg PO BIDWM Qty: 60 0RF Continued paroxetine HCl [Paxil] 20 mg tablet 20 mg PO DAILY@08 0RF pantoprazole 40 mg tablet,delayed release (DR/EC) 40 mg PO DAILY@08 0RF Systane Balance 0.6 % drops 1 drop ophthalmic (eye) Q12H PRN (Reason: Dry Eyes) 0RF sennosides-docusate sodium [Senna-S] 8.6-50 mg Tablet 1 tab-cap PO Q12H PRN (Reason: Constipation) 0RF magnesium hydroxide [Milk of Magnesia] 400 mg/5 mL Suspension 30 ml PO DAILY PRN (Reason: Constipation) 0RF insulin aspart U-100 [Novolog Flexpen U-100 Insulin] 100 unit/mL (3 mL) Insulin Pen See Rx Instructions .ROUTE .COMPLEX 0RF Rx Instructions: 8 units with meals-hold if less than 110 and inject per sliding scale 150-199=0 units 200-249=2 units 250-299=3 units 300-349=4 units 350-399=5 units 400-449=0 praveen aadms Tylenol 325 mg Tablet 650 mg PO Q6H PRN (Reason: Pain) 0RF amlodipine 2.5 mg Tablet 2.5 mg PO DAILY@08 0RF alprazolam 0.25 mg tablet 0.25 mg PO Q24H PRN (Reason: Anxiety) 0RF Miralax 17 gram Powder In Packet 17 g PO DAILY PRN (Reason: Constipation) 0RF loperamide 2 mg Tablet 2 mg PO PRN MDD 4 tabs PRN (Reason: Diarrhea) 0RF clopidogrel 75 mg Tablet 75 mg PO DAILY@08 0RF aspirin 81 mg Tablet,Delayed Release (Dr/Ec) 81 mg PO DAILY@08 0RF bisacodyl 10 mg Suppository 10 mg ID DAILY PRN (Reason: Constipation) 0RF ferrous sulfate 325 mg (65 mg iron) Tablet 325 mg PO BID@08,20 0RF Enema 19-7 gram/118 mL Enema 118 ml ID DAILY PRN (Reason: Constipation) 0RF ondansetron 4 mg Tablet,Disintegrating 4 mg PO Q8H PRN (Reason: Nausea And Vomiting) 0RF mirtazapine 7.5 mg Tablet 7.5 mg PO BEDTIME@20 0RF Biofreeze (menthol) 4 % Gel 1 applic TOPICAL Q4H PRN (Reason: Pain) 0RF Changed atorvastatin 80 mg Tablet 40 mg PO DAILY@08 Qty: 0 0RF Lantus U-100 Insulin 100 unit/mL Solution 15 unit SUBCUT BID Qty: 0 0RF metoprolol tartrate 25 mg tablet 50 mg PO BID@08,20 Qty: 0 0RF Rx Instructions: hold if sbp <100, dbp <60 Discharge Diet: Cardiac and Diabetic Discharge Activity: Resume usual activity and Increase activity as tolerated Patient Instructions: Opioid Safety Discharge Attestations Time Spent in Discharge Care*: greater than 30 min Specific Discharge Activities: educating patient, discussing with pcp/other providers, discussing with case management specialist/social workers/dc planners, documenting/other paperwork and evaluating patient/reviewing data Status at Discharge: Cognitive status at discharge: cognitively intact , Behavioral status at discharge: cooperative , Functional status at discharge: other assisted ambulation , Overall status at discharge: patient is progressing back to baseline Quality Metrics Clinical Quality Measures [ No reported AMI, CVA or VTE this stay] 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 of Care Code Acute Chg FW DC note Diagnoses Diastolic heart failure I50.30 Adrenal insufficiency E27.40 Hypertension I10 Type 1 diabetes mellitus E10.65 Diabetes mellitus complication status: with hyperglycemia Chronic kidney disease N18.9
[2021-12-12 11:16] LABS: Glucose Point of Care 55 mg/dL (70-110)
[2021-12-12] MEDS: dextrose 50% syringe 50 mL IVP (11:43)
--- NOTE | 2021-12-12 12:21 | PC.NURSE ---
at stress test
[2021-12-12 12:47] LABS: Glucose Point of Care 216 mg/dL (70-110)
--- NOTE | 2021-12-12 13:01 | NMCV_ITS ---
NM nicky perf SPECT r/s* [id number] Mariana Ace Age: 41 Gender: F : 1980 Exam Date: 12/12/2021 11:08 Ordering Phys: Coreen Ramos MD ([email or web address]) Technologist: MANDO Marroquin Exam Location: [facility] Indications: Chest pain STRESS TEST Please see separate stress test report in [facility] for full findings IMAGE PROTOCOL Rest/Stress 1 Lexiscan Day Radiopharmaceutical Dose (mCi) Administration Site Administered by Rest: Tc-99m 10.6 IV MANDO Marroquin Sestamibi Stress:Tc-99m 32.0 IV MANDO Marroquin Sestamibi Rest: 12-Dec-2021 60 Discovery 630 Stress: 12-Dec-2021 30 Discovery 630 0.4mg Lexiscan. Images obtained in supine and prone position. SPECT RESULTS Technical Quality: Good Raw Data Analysis: Normal Image Corrections: No attenuation or motion correction applied Summed Stress Score: 4 Summed Rest Score: 0 Summed Difference Score: 4 PERFUSION FINDINGS Small to moderate area of moderately decreased tracer uptake was noted in the mid anterolateral and apical lateral regions. Significant reversibility was noted at rest FUNCTIONAL RESULTS (calculated via Gated SPECT) Stress Image LV EF (%): 44 Stress EDV (mL):99 TID: 1.18 Stress ESV (mL):55 FUNCTIONAL FINDINGS: Segmental wall motion analysis reveals mild diffuse hypokinesia of the left ventricle IMPRESSIONS 1. Myocardial perfusion imaging revealing small to moderate area of reversible defect in the anterolateral and apical region, suggestive of ischemia in the distribution of the left circumflex artery. 2. Diminished elevation fraction of 44%. 3. LV wall motion analysis revealing mild diffuse hypokinesia in the left ventricle. 4. Mildly dilated LV cavity with an end-systolic volume of 55 mL. 5. Elevated transient ischemic dilatation ratio of 1.18 also suggestive of ischemia No similar previous studies are available for comparison Dr Coreen Ramos MD FAC (Electronically Signed) Final Date: 12 December 2021 15:36 S
[2021-12-12] MEDS: regadenoson 0.4 Mg/5 ml Syringe IVP (13:08)
--- NOTE | 2021-12-12 14:02 | PC.NURSE ---
Pt at nuclear medicine for stress test
[2021-12-12] MEDS: FUROsemide 40 mg Tablet PO (14:46)
[2021-12-12] MEDS: losartan 50 mg Tablet 25 MG PO (14:47)
[2021-12-12] MEDS: clopidogrel 75 mg Tablet PO (14:47)
[2021-12-12] MEDS: amlodipine 5 mg Tablet 2.5 MG PO (14:47)
[2021-12-12] MEDS: pantoprazole 40 mg SDV IVP (14:48)
[2021-12-12] MEDS: aspirin 81 mg EC Tablet PO (14:48)
[2021-12-12] MEDS: hydrocortisone 10 mg Tablet PO ×2 (14:57→21:02)
[2021-12-12] MEDS: PARoxetine 20 mg Tablet PO (14:57)
[2021-12-12] MEDS: metoprolol tartrate 50 mg Tablet PO ×2 (14:58→21:03)
[2021-12-12] MEDS: ferric gluconate 125 MG in sodium chloride 0.9% (100 ml) 100 ML 110 MG IV (15:29)
[2021-12-12 17:16] LABS: Glucose Point of Care 228 mg/dL (70-110)
[2021-12-12] MEDS: insulin lispro 100 unit/1 mL SUBCUT (18:05)
[2021-12-12] MEDS: sodium chloride 0.45% 1,000 ML 75 ML IV (22:45)
[2021-12-12 22:52] LABS: Glucose Point of Care 70 mg/dL (70-110)
[2021-12-13] VITALS (52 sets, daily range): BP systolic 129–167; BP diastolic 66–106; PULSE 79–107; RESP 10–31; TEMP 36.4–37.2; O2SAT 94–100
[2021-12-13] MEDS: heparin 5,000 unit/mL INJ 1 mL 5000 UNIT SUBCUT (00:18)
[2021-12-13] MEDS: ipratropium-albuterol 3 mL Neb INHALATION ×4 (03:53→20:10)
[2021-12-13 04:45] LABS: Basophils % 0.2 %; Eosinophils # 0.2 10^3/uL (0.0-0.8); Hematocrit 28.2 % (37.0-47.0); Hemoglobin 9.3 g/dL (11.5-15.3); Lymphocytes # 1.3 10^3/uL (0.8-4.8); Lymphocytes % 14.8 %; Mean Corpuscular Hemoglobin 28.1 pg (28.0-34.0); Mean Corpuscular Volume 85.2 fl (81-99); Mean Platelet Volume 9.5 fL (7.4-10.4); Monocytes # 0.5 10^3/uL (0.2-0.9); Monocytes % 5.3 %; Neutrophils # 6.81 10^3/uL (1.8-7.7); Neutrophils % 77.1 %; Nucleated Red Blood Cells % 0 %; Platelet Count 239 10^3/cmm (130-400); Red Blood Count 3.31 10^6/uL (4.1-5.3); Red Cell Distribution Width 14.2 % (12.1-15.1); White Blood Count 8.8 10^3/uL (4.0-10.0)
[2021-12-13 05:09] LABS: Alanine Aminotransferase 19 U/L (0-33); Alkaline Phosphatase 105 IU/L (35-105); Anion Gap 10.7 (5-19); Aspartate Amino Transferase 13 U/L (0-32); Blood Urea Nitrogen 24 mg/dL (6-20); Calcium 8.7 mg/dL (8.5-10.5); Carbon Dioxide 27 mmol/L (22-29); Chloride 105 mmol/L (98-107); Globulin 2.4 g/dL (1.3-4.6); Glomerular Filtration Rate 38.5 mL/min (90-130); Glucose 182 mg/dL (65-115); Magnesium 1.9 mg/dL (1.7-2.3); Osmolality Calculated 295 mOsm/kg (285-295); Phosphorus 3.8 mg/dL (2.5-4.5); Potassium 4.7 mmol/L (3.5-5.1); Sodium 138 mmol/L (136-145); Total Bilirubin 0.2 mg/dL (0.15-1.2); Total Protein 5.4 g/dL (6.6-8.7)
--- NOTE | 2021-12-13 05:26 | XACV_ITS ---
Exam Room: [facility] Ht: 160 cm Wt: 75 kg BSA: 1.85 m2 Gender: Female : 1980 Any Known Allergies: Other Exam Priority: Routine Procedure(s): Procedure Description: Diagnostic procedure Procedure Description: PCI procedure Procedure Description: Left Heart Catheterization Procedure Description: Drug Eluting Coronary Stent Procedure Description: PTCA Procedure Description: Coronary Angiography Procedure Description: Pressure Wire Richard CHANG; Diagnostic Cath Status: Elective Diagnostic Findings * The left main is a medium caliber vessel which appears to have a tapering narrowing of around 20% distally. * The left anterior descending artery is a medium caliber vessel which appears to wrap around the LV apex minimally. The proximal LAD was found to have mild to moderate diffuse disease. Mid LAD was found to have a 60 to 70% diffuse narrowing. The distal LAD was found to have minimal intimal irregularities. The first 2 diagonal branch was found to have a high-grade lesion in the proximal segment. Mild to moderate diffuse disease was noted in the distal segment of the artery. * The left circumflex artery is a small to medium caliber nondominant vessel with mild diffuse intimal irregularities. * The right coronary artery is a medium caliber dominant vessel. 30 to 30% diffuse narrowing was noted in the proximal to mid segment. The PDA and the PLV branches also were found to have mild to moderate diffuse disease. No significant stenotic lesions. PCI Status: Elective PCI Indication: Other Interventional Findings * Procedure detail: We engaged left main artery with XB 3.5 guide catheter. IV heparin was administered to maintain ACT above 250 S. After normalization IFR wire was advanced into distal LAD. iFR value of 0.67 was obtained that was highly ischemic. We decided to perform PCI of the proximal diagonal artery and mid LAD artery. 0.014 run-through guidewire was used to cross into distal diagonal artery. We predilated the vessel with 2.5 x 12 mm noncompliant balloon. This was followed by placement of 2.5 x 15 mm resolute [place] drug-eluting stent. At the distal diagonal artery there was slow flow and possible small dissection. We placed a second stent measuring 2.0 x 12 mm resolute [place] drug-eluting stent. We then advanced a wire into LAD. LAD stenosis was predilated with 2.5 x 12 mm compliant balloon. This was followed by placement of 2.75 x 22 mm resolute [place] stent. Mid section had underexpansion and it was treated with 2.75 x 8 mm NC balloon angioplasty. At this time final angiogram was performed that showed excellent stent expansion, no residual stenosis and SERGIO 3 flow. Guidewire and guide catheter were removed and patient left the medical laboratory manager in a stable condition.. * Mid Left Anterior Descendin% stenosis treated with a AB TREK 2.50X12 RX BALLOON, MDT R BEATRICE 2.75X22 JOSE, and MDT NC EUPHORA RX 2.12W15IC BALLOON. * 1st Diagonal: 70% stenosis treated with a MDT R BEATRICE 2.5X15 JOSE, and MDT R BEATRICE 2.0X12 JOSE. Conclusions 1. 41-year-old white female with a history of hypertension, diabetes, dyslipidemia, reactive airway disease, presented with recurrent episodes of decompensated heart failure and COPD exacerbation. She had a Myocardial perfusion imaging which revealed a small to moderate area of reversible defect in the anterolateral and apical lateral regions. In view of her clinical presentation and the abnormal objective findings, in order to further evaluate her coronary status, a cardiac catheterization was recommended. Patient underwent left heart catheterization with left and right coronary angiogram today. The findings are as follows. 2. 20% tapering narrowing of the left main. Moderately severe disease in the mid LAD. High-grade lesion in the first diagonal branch of the left anterior sending artery. Mild to moderate diffuse disease in the other vessels. Markedly elevated LVEDP of 32 mmHg suggesting left ventricular diastolic dysfunction. 3. I reviewed and discussed the cardiac catheterization data. Dr. Stearns. It was thought to be appropriate to consider PCI of the diagonal lesion and IFR with a possible PCI of the LAD lesion. Dr. Stearns concurred with this plan and took over further management of this patient at this point. 4. Significantly ischemic LAD stensis confirmed with iFR value of 0.67. S/p successful revascularization with JOSE X 1. Successful revascularization of diagonal artery with JOSE X2. 5. Mid Left Anterior Descending was treated with a Balloon, Drug Eluting Stent, and Balloon. 6. 1st Diagonal was treated with a Drug Eluting Stent, and Drug Eluting Stent. Recommendations * Aspirin and plavix for atleast 1 year. * High intensity statin therapy. * Continue diuresis. * Outpatient cardiology follow up in 4 weeks. Interventional RX Recommendation: PCI w/o planned CABG Diagnostic RX Recommendation: PCI w/o planned CABG Anticoagulation: Heparin LV EDP: 32 mmHg Left Ventriculography Findings: * LV gram was not performed because of the limitations of the dye usage. The LVEDP was 32 mmHg. Pressures Phase:Rest AO : 141 / 74 ( 101 ) @ 7:31:00 AM 144 / 73 ( 102 ) @ 7:31:00 AM 154 / 73 ( 104 ) @ 7:52:00 AM 118 / 64 ( 88 ) @ 8:03:00 AM 109 / 68 ( 86 ) @ 8:16:00 AM LV : 140 / -1 / 32 @ 7:31:00 AM 140 / 0 / 31 @ 7:31:00 AM Valves Phase:DefaultPhase AV : 0.0 @ 7:45:30 AM AV Mean Gradient: 0.0 @ 7:45:30 AM Clinical Evaluation EBL: 5mL-10mL Procedural Details Pre-Procedure Time Out. Identified patient by full name and date of as verbalized by the patient/guarantor. Does the consent match the physician's order: Yes. Accurate & Complete Informed Consent: Yes. Inpatient/Outpatient History & Physical on Chart: Yes. If H&P is completed, is and addenduem needed: No; If yes, is the addendum complete: N/A. Visualize and Verify Site with Patient/Guarantor: N/A. Relevant Radiology Images available: Yes. Pre-op teaching completed and patient verbalized understanding. Procedure started. [facility] Clinical Fraility Score: 5: Mildly Frail. Herbicide Sprayer Indications: Worsening Angina/Abnormal stress test. Chest Pain Symptom Assessment: Typical Angina Symptoms. Cardiovascular Instability: No. Correct patient, site and procedure confirmed by cath team. PERRLA. 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 Lungs clear x 5 lobes. IV Site on Arrival: TLC in the left SC. IV Fluids: 0.9% NaCl at KVO. 500 mL infused prior to medical laboratory manager. Pre Procedural Pulses: bilateral radial was 2+. Pre Procedural Pulses: bilateral posterior tibial was 3+. Pre Procedural Pulses: bilateral dorsalis pedis was 3+. Oxygen started at 3liters/min via nasal canula. right radial was prepped with chloroprep then draped in the usual sterile fashion. right groin was prepped with chloroprep then draped in the usual sterile fashion. Physician notified. Baseline sample Acquired. HR: 90 BPM. Patient's family unavailable. The patient voiced for Dr. Ramos to call her daughter, Abimbola Ibarra, after the procedure. Equipment: 6F - Radial. Cardiac Cath Pack. ACIST Manifold Kit Model BT 2000. Heparinized Saline (2 units/mL), 1000 mL bag. Physician arrived. Physician scrubbed in. Immediate Pre-Procedure Time Out. Correct Patient: Yes; Correct Procedure: Yes; Correct Site: Yes; Correct Patient Position: Yes; Correct Supplies: Yes; Dried Flammable Prep: Yes; Blood Products Available: N/A;. Dr. Ramos states his concern about the patients small, thready radial pulse. Will move to femoral access. Lidocaine 1% infiltrated to the right groin. Arterial access obtained. A 5 panamanian JL4 catheter in over wire. Multiple views taken of left coronary artery. Catheter out. A 5 panamanian JR4 catheter in over wire. Multiple views taken of right coronary artery. Catheter redirected to the LV, unable to cross. Catheter removed over the standard wire. A 5 panamanian Angled Pig catheter in over wire. EDP Sample taken: LV 140/-2,32; HR: 89 BPM; SpO2: 96%. Pullback taken: LV 140/0,31; AO 141/74(101); Mean: 0mmHg, Peak to Peak: 0mmHg, SEP: 22sec/min; HR: 88 BPM; SpO2: 97%. Catheter removed over the standard wire. Dr. Stearns called at Dr. Ramoss request. Dr. Stearns here to view cine. Dr. Stearns scrubbed in to perform intervention. Patients daughter, Abimbola, updated via telephone by Dr. Ramos and Dr. Stearns. 6 panamanian XB 3.5 SH guide catheter was inserted over the wire. FFR guidewire was advanced through the guide catheter to lesion in the mid LAD. iFR wire in. Spot iFR of the Mid lad = 0.67 with pullback 0.61. iFR wire out. Runthrough guidewire was advanced through the guide catheter to lesion in the mid LAD. Inflation Number : 1 A MDT R BEATRICE 2.5X15 JOSE -Lot Number# [id number] was prepped and advanced across the 1st Diag. The stent was deployed at 12 STU for 0:22 seconds. Exp 2022-08-02. Stent balloon out over wire. Results checked. Inflation Number : 2 A MDT R BEATRICE 2.0X12 JOSE -Lot Number# [id number] prepped and advanced across the 1st Diag. The stent was deployed at 12 STU for 0:20 seconds. Exp 2022-05-23. Stent balloon out over wire. Results checked. Inflation number : 1 A AB TREK 2.50X12 RX BALLOON was prepped and advanced across the Mid LAD , then inflated to 12 STU for 0:10 seconds. Inflation number: 2 The AB TREK 2.50X12 RX BALLOON was reinflated across the Mid LAD, to 12 STU for 0:10 seconds. Inflation Number : 3 A MDT R BEATRICE 2.75X22 JOSE -Lot Number# [id number] was prepped and advanced across the Mid LAD. The stent was deployed at 12 STU for 0:33 seconds. Exp 2024-06-08. Inflation number : 4 A MDT NC EUPHORA RX 2.44H30UO BALLOON was prepped and advanced across the Mid LAD , then inflated to 12 STU for 0:26 seconds. Inflation number: 5 The MDT NC EUPHORA RX 2.08P69ND BALLOON was reinflated across the Mid LAD, to 12 STU for 0:15 seconds. Balloon out. Results checked. Wire out. Guide catheter out. ACT drawn. Results 182 seconds. Therapeutic limits - pre-heparin administration 90-150 seconds and monitoring heparin during a vascular procedure >250 seconds. A Right femoral angiogram was performed to determine safe placement of closure device. Sheath(s) sutured into position with 2-0 silk and sterile 4x4's and Op-site applied over the site. No oozing or signs and symptoms of hematoma noted. Arterial sheath flushed and connected to tranducer and pressure bag with heparinized saline. Post Procedure: Pulses reassessed and unchanged. PERRLA. 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 No VTE prophylaxis required. Medication's Wasted: Verapamil = 5 mg. Medication's Wasted: Heparin = 2000 units. Medication's Wasted: Nitro = 49.8 mg. Total IV fluids: 118 mL. A Suture was successful obtaining hemostatsis at the Right Femoral artery insertion site. Post-op diagnosis: Severe disease of the diagonal and Mid LAD. S/P PCI. Complications: none. Estimated blood loss: 5mL-10mL. Responsiveness - Normal response to verbal stimuli; alert and oriented, PERRLA. Airway - Unaffected, no intervention required; spontaneous ventilation. Circulation: W/N/L, pulses unchanged. Nausea/Vomiting: No. Procedure completed. Patient transferred by bed to 1st floor. Vital chart was stopped. Access Site Site: Right Femoral artery Sheath Size: 5 Fr Hemostasis Method: Suture Hemostasis Success: Successful Procedure Medications Start: 6:07 AM Stop: 6:07 AM Medication: Versed Amount: 1 mg Route: I.V. Start: 6:07 AM Stop: 6:07 AM Medication: Fentanyl Amount: 50 mcg Route: I.V. Start: 6:25 AM Stop: 6:25 AM Medication: Versed Amount: 1 mg Route: I.V. Start: 6:25 AM Stop: 6:25 AM Medication: Fentanyl Amount: 25 mcg Route: I.V. Start: 6:27 AM Stop: 6:27 AM Medication: Lopressor (metoprolol) Amount: 5 mg Route: I.V. Start: 6:28 AM Stop: 6:28 AM Medication: Versed Amount: 1 mg Route: I.V. Start: 7:03 AM Stop: 7:03 AM Medication: Heparin Amount: 6000 units Route: I.V. Start: 7:07 AM Stop: 7:07 AM Medication: Versed Amount: 1 mg Route: I.V. Start: 7:15 AM Stop: 7:15 AM Medication: Heparin Amount: 2000 units Route: I.V. Start: 7:15 AM Stop: 7:15 AM Medication: Nitrogylcerin Amount: 200 mcg Route: I.C. Start: 7:16 AM Stop: 7:16 AM Medication: Versed Amount: 1 mg Route: I.V. Start: 7:30 AM Stop: 7:30 AM Medication: Versed Amount: 1 mg Route: I.V. Start: 7:30 AM Stop: 7:30 AM Medication: Fentanyl Amount: 25 mcg Route: I.V. Start: 7:36 AM Stop: 7:36 AM Medication: Heparin Amount: 3000 units Route: I.V. Start: 7:38 AM Stop: 7:38 AM Medication: Plavix Amount: 300 mg Route: P.O. I, the attending physician, have reviewed and verified all procedure medications. Yes, all medications given per verbal order History/Risk Factors Hypertension: Yes Dyslipidemia: No Peripheral Arterial Disease (PAD): No Myocardial Infarction (MN): No Obesity: No Renal Disease: No Tobacco Use: Current/Recent(w/in 1 year) Prior Interventions PCI: No CABG: No Valve Surgery: No Report Signatures Interventional Workflow Finalized by Mustapha Stearns MD on 12/17/2021 01:51 PM Diagnostic Workflow Finalized by Dr Coreen Ramos MD [facility] on 12/13/2021 11:26 PM
[2021-12-13] MEDS: clopidogrel 75 mg Tablet PO (05:28)
[2021-12-13] MEDS: aspirin 81 mg EC Tablet PO (05:29)
[2021-12-13] MEDS: PARoxetine 20 mg Tablet PO (05:29)
[2021-12-13] MEDS: diphenhydrAMINE 50 mg Capsule PO (05:29)
[2021-12-13] MEDS: hydrocortisone 10 mg Tablet PO ×2 (05:29→21:25)
[2021-12-13] MEDS: losartan 50 mg Tablet 25 MG PO (05:29)
[2021-12-13] MEDS: amlodipine 5 mg Tablet 2.5 MG PO (05:30)
[2021-12-13] MEDS: metoprolol tartrate 50 mg Tablet PO ×2 (05:30→21:25)
--- NOTE | 2021-12-13 05:37 | PC.NURSE ---
Morning medication administered early per track repair laborer protocols.
--- NOTE | 2021-12-13 05:48 | PC.NURSE ---
Pt exiting unit at this time for cardiac label stitcher
--- NOTE | 2021-12-13 06:05 | P.HPUD_ITS ---
Surgery/Procedure H&P Update DATE OF PROCEDURE: December 13, 2021 DATE H&P PERFORMED: 12/05/21 H&P UPDATE INFORMATION: I have reviewed H&P completed within last 30 days, I have examined patient prior to procedure and Changes to prior documentation as noted here (The lungs are clear with no rales or rhonchi) PREOP DIAGNOSIS: ASHD PRIMARY INDICATION FOR PROCEDURE: chf/abnormal stress testt PLANNED PROCEDURE: Operation Date: 12/13/21 06:00 Proposed Procedures p Cardiac Catheterization(Not Applicable) - Coreen Ramos MD PATIENT REASSESSED PRIOR TO SEDATION, WITH NO CHANGE NOTED: Yes PHYSICAL EXAM: alert, oriented x 3, clear to auscultation bilaterally and regul ar rate & rhythm AIRWAY EVAL/ANESTHESIA PLAN: normal airway, see other exam findings, ASA III, Monitored Anesthesia, Local Anesthesia, Risks, benefits & alternatives of sedation and/or procedure discussed and Patient agrees to continue as planned
[2021-12-13 06:43] LABS: Glucose Point of Care 175 mg/dL (70-110)
--- NOTE | 2021-12-13 08:10 | P.PN_ITS ---
Subjective Subjective: seen and examined after skilled laborer- had 3 stents placed, 2 to lad and 1 to diagonal art. states she feels well. no n/v/f/c/cp/cough/ bray/d. Medications: Reviewed: Yes Medication Review Details: Current Medications Acetaminophen (Acetaminophen 325 Mg Tablet) 650 mg PO Q6H PRN PRN Reason: MILD PAIN Last Admin: 12/11/21 21:14 Dose: 650 mg Documented by: Albuterol/Ipratropium (Ipratropium-Albuterol 3 Ml Neb) 3 ml INHALATION Q6H [facility] Last Admin: 12/13/21 03:53 Dose: 3 ml Documented by: Amlodipine Besylate (Amlodipine 5 Mg Tablet) 2.5 mg PO DAILY [facility] Last Admin: 12/13/21 05:30 Dose: 2.5 mg Documented by: Aspirin (Aspirin 81 Mg Ec Tablet) 81 mg PO DAILY [facility] Last Admin: 12/13/21 05:29 Dose: 81 mg Documented by: Clopidogrel Bisulfate (Clopidogrel 75 Mg Tablet) 75 mg PO DAILY [facility] Last Admin: 12/13/21 05:28 Dose: 75 mg Documented by: Dextrose (Dextrose 50% Syringe 50 Ml) 50 ml IVP PRN PRN; Protocol PRN Reason: hypoglycemia protocol Last Admin: 12/12/21 11:43 Dose: 50 ml Documented by: Ferrous Gluconate (Ferrous Gluconate 324 Mg Tablet) 324 mg PO BIDWM [facility] Last Admin: 12/11/21 18:19 Dose: 324 mg Documented by: Furosemide (Furosemide 40 Mg Tablet) 60 mg PO DAILY@0800 [facility] Glucagon (Glucagon 1 Mg/Ml Inj 1 Ml) 1 mg IM ONCE PRN; Protocol PRN Reason: Adult Acute Hypoglycemia Prot. Heparin Sodium (Porcine) (Heparin 5,000 Unit/Ml Inj 1 Ml) 5,000 unit SUBCUT Q12H [facility] Last Admin: 12/13/21 00:18 Dose: 5,000 unit Documented by: Hydralazine HCl (Hydralazine 20 Mg/Ml Inj 1 Ml) 10 mg IVP Q4H PRN PRN Reason: spb>180 dbp >110 Hydrocortisone (Hydrocortisone 10 Mg Tablet) 10 mg PO BID [facility] Last Admin: 12/13/21 05:29 Dose: 10 mg Documented by: Dextrose (D5w) 500 mls @ 100 mls/hr IV ONCE PRN; Protocol PRN Reason: Adult Acute Hypoglycemia Prot Ferric Sodium Gluconate 125 mg (/ Sodium Chloride) 110 mls @ 110 mls/hr IV Q24H [facility] Stop: 12/18/21 09:59 Last Infusion: 12/12/21 16:45 Dose: Infused Documented by: Sodium Chloride (Sodium Chloride 0.9%) 1,000 mls @ 50 mls/hr IV .Q20H ONE Stop: 12/14/21 00:59 Last Admin: 12/13/21 04:42 Dose: Not Given Documented by: Sodium Chloride (Sodium Chloride 0.45%) 1,000 mls @ 75 mls/hr IV .[id number] [facility] Last Admin: 12/12/21 22:45 Dose: 75 mls/hr Documented by: Insulin Glargine (Insulin Glargine 100 Units/1 Ml) 14 unit SUBCUT BID@0900,2100 [facility] Last Admin: 12/12/21 21:04 Dose: Not Given Documented by: Insulin Human Lispro (Insulin Lispro 100 Unit/1 Ml) 0 unit SUBCUT WM&BEDTIME [facility]; Protocol Last Admin: 12/12/21 21:02 Dose: Not Given Documented by: Losartan Potassium (Losartan 50 Mg Tablet) 25 mg PO DAILY [facility] Last Admin: 12/13/21 05:29 Dose: 25 mg Documented by: Metoclopramide HCl (Metoclopramide 5 Mg/Ml Sdv 2 Ml) 10 mg IVP Q6H PRN PRN Reason: NAUSEA AND VOMITING Last Admin: 12/05/21 16:31 Dose: 10 mg Documented by: Metoprolol Tartrate (Metoprolol Tartrate 50 Mg Tablet) 50 mg PO BID@0900,2100 [facility] Last Admin: 12/13/21 05:30 Dose: 50 mg Documented by: Ondansetron HCl (Ondansetron 2 Mg/Ml Sdv 2 Ml) 4 mg IVP Q6H PRN PRN Reason: NAUSEA AND VOMITING Last Admin: 12/05/21 14:26 Dose: 4 mg Documented by: Ondansetron HCl (Ondansetron 2 Mg/Ml Sdv 2 Ml) 4 mg IVP Q2M PRN PRN Reason: NAUSEA Pantoprazole Sodium (Pantoprazole Dr 40 Mg Tablet) 40 mg PO DAILY [facility] Paroxetine HCl (Paroxetine 20 Mg Tablet) 20 mg PO QAM [facility] Last Admin: 12/13/21 05:29 Dose: 20 mg Documented by: Vitals/I&O/Wt Last Vital Signs Temp 97.6 F 12/13/21 03:28 Pulse 79 12/13/21 03:53 Resp 15 12/13/21 03:53 BP 146/89 12/13/21 03:28 Pulse Ox 100 12/13/21 03:53 12/12/21 12/13/21 12/13/21 22:59 06:59 14:59 Intake Total 346 / 706 0 / 706 Balance 346 / -294 0 / -294 Weight last 48 hrs Weight 61.416 kg Physical Exam Narrative: using nc 02, sitting up in bed vss heent- nc/at, eomi, anicteric neck supple lungs- wheezes and crackles b/l heart reg, +CARLYN abd soft, nt, nd, + bs ext trace leg edema neuro- a,a, o x 3 Urinary Catheter Management: Fall: Cath Placed During This Visit: yes, but has since been removed by the nurse Reason for Continuing Indwelling Catheter: Accurate Measurement of Urinary Output in Critically Ill Patients Urinary Catheter Date of Insertion: 12/04/21 Urinary Catheter Time of Insertion: 05:00 Date Urinary Catheter Removed: 12/10/21 Time Urinary Catheter Discontinued: 13:49 Data : 12/13/21 04:31 12/13/21 04:31 A&P Assessment and plan (1) Diabetic nephropathy: 41 yr old female 1. MARCELA -improving- D Dx is CI- MARCELA, Prerenal from CRS 2. CKD from DM- likely stage 3. monitor where cr plateaus -once stable- she should use an ARB and likely Farxigia -no hydronephrosis on ct scan 3. as s/p cath this am- hold lasix and losartan -gentle ivf if okay w/ cardiology -monitor for CI- MARCELA 4. anemia - ferritin 101, tsat 23%- iv iron as infection improved. needs complete NANCI evaluation -hgb stable 5.DM control per medicine 6.moderate pleural effusions and small pericardial effusion- cardiology/ pulm/ renal fu 7. adrenal insufficiency per chart- outpt f/u bp okay seen and examined w/ RN- telehealth visit time spent 30 min Status: Acute Plan see above Attestations Medical Necessity Statement*: s/p cardiac cath w/ stents. recent MARCELA and ckd stage 3 . monitor renal fxn post cath Time Spent in Patient Care: 16 - 35 minutes (>than 50% of time spent in counselling and/or direct pt care on unit) . 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 of Care Code Acute Documentation Manager for Bubba Gates Diagnoses Diabetic nephropathy E11.21
[2021-12-13] MEDS: pantoprazole DR 40 mg Tablet PO (09:00)
[2021-12-13] MEDS: insulin glargine 100 units/1 mL 14 UNIT SUBCUT (09:01)
[2021-12-13 09:10] LABS: Glucose Point of Care 227 mg/dL (70-110)
[2021-12-13] MEDS: ferric gluconate 125 MG in sodium chloride 0.9% (100 ml) 100 ML 110 MG IV (09:46)
[2021-12-13 11:57] LABS: Partial Thromboplastin Time > 250.0 SECONDS (23.9-36.7)
[2021-12-13] MEDS: FUROsemide 10 mg/mL SDV 4mL 40 MG IVP (12:04)
[2021-12-13 13:13] LABS: Glucose Point of Care 300 mg/dL (70-110)
[2021-12-13] MEDS: insulin lispro 100 unit/1 mL SUBCUT (13:18)
--- NOTE | 2021-12-13 14:54 | P.PN_ITS ---
Subjective Subjective: Patient seen today in cardiac recovery. Underwent PCI. Last Model Maker report not available but I am told patient received 2 JOSE in LCx and 1 JOSE in LAD. Postprocedure patient went to fluid overload requiring BiPAP ventilation. Fluid was stopped. Received 40 mg of IV Lasix. 1 hour after that patient back to baseline oxygen supplementation of 2 L. Blood pressure better controlled. Patient is awake and alert denies any nausea vomiting, headache or chest pain. Sheath still present. Medications: Reviewed: Yes Vitals/I&O/Wt Last Vital Signs Temp 97.6 F 12/13/21 03:28 Pulse 93 12/13/21 14:53 Resp 16 12/13/21 14:47 BP 167/106 12/13/21 11:30 Pulse Ox 96 12/13/21 14:47 12/12/21 12/13/21 12/13/21 22:59 06:59 14:59 Intake Total 346 / 706 0 / 706 1315 / 1315 Output Total 400 / 400 Balance 346 / -294 0 / -294 915 / 915 Weight last 48 hrs Weight 61.416 kg Physical Exam Narrative: GenNERAL: The patient is alert and oriented times three. Not in any acute distress. RESPIRATORY: Chest is symmetrical. No intercostals muscle retraction or any ac cessory muscle activation. There is no chest wall tenderness. Breath sounds are heard bilaterally. No rales or rhonchi heard. No evidence of any consolidation.? Diminished intensity of breath sounds in the bases. HEART: The heart sounds are normal.? No S3 or S4.? Short systolic murmur at the base of the heart.? ABDOMEN: Soft, nontender EXTREMITIES: Trace edema Urinary Catheter Management: Fall: Cath Placed During This Visit: yes, but has since been removed by the nurse Reason for Continuing Indwelling Catheter: Accurate Measurement of Urinary Output in Critically Ill Patients Urinary Catheter Date of Insertion: 12/04/21 Urinary Catheter Time of Insertion: 05:00 Date Urinary Catheter Removed: 12/10/21 Time Urinary Catheter Discontinued: 13:49 Data : 12/13/21 04:31 12/13/21 04:31 A&P Assessment and plan (1) Positive cardiac stress test: Status: Acute (2) CAD (coronary artery disease): Status: Acute (3) Diastolic heart failure: Status: Acute (4) Adrenal insufficiency: Status: Acute (5) Hypertension: Status: Acute (6) Type 1 diabetes mellitus: Status: Acute Qualifiers: Diabetes mellitus complication status: with hyperglycemia Qualified Code(s): E10.65 - Type 1 diabetes mellitus with hyperglycemia (7) Chronic kidney disease: Status: Acute Plan #Acute respiratory failure with hypoxia and hypercapnia #Vent dependent respiratory failure?resolved #Pneumonia on admission #Chronic anemia #MARCELA on CKD secondary to contrast versus cardiorenal #Hyperkalemia #Type II OR/demand ischemia #History of stroke May 2021 #Type 1 diabetes mellitus with hyperglycemia #Adrenal insufficiency -Extubated December 06.? Still requiring BiPAP on and off.? There is evidence of pulm onary edema on x-ray today.? Her baseline oxygen is 2 L.? Urine output 2700 since yesterday. ? Continue DuoNeb every 6 hours as needed ? Continue linezolid and Zosyn MRSA PCR pending Blood culture 1 out of 4 positive for staph epidermidis possibly contamination ? Echo limited and of poor quality but EF appeared normal ? Troponin elevation most likely type II demand ischemia ? Plan for stress test this Saturday ? Continue Lasix 60 IV daily. ? Creatinine improving gradually.? Nephrology consulted.? Unsure if there is a contrast component versus cardiorenal.? CT ruled out hydronephrosis although re nal ultrasound had a concern of it.? Nephro consulted.? Appreciate recommendations ? Continue Plavix and aspirin.? Hold statin for now secondary to renal dysfunction. ? Continue on insulin ? Continue on maintenance dose steroid 20 in a.m. and 10 PM.? Will need endocrinology follow-up at discharge ? Cardiology following.? Recommendations appreciated Full code Heparin for DVT prophylaxis Plan for day: Recovery postcardiac catheterization and PCI. IV Lasix 40 mg once. Monitor blood pressures and strict input output charting. Oxygen supplementation keeping saturation over 90%. Goal blood pressure less than 140/90 mmHg. We will titrate medications accordingly. Continue with metoprolol 50 mg twice daily. Restart losartan tomorrow morning. Amlodipine 2.5 mg daily. Will need to be discharged on Lasix 60 mg oral daily. Discharge planning: Plan to discharge in next 24 hours if remains hemodynamically stable based oxygen supplementation. 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
--- NOTE | 2021-12-13 15:57 | PC.NURSE ---
patient reports sweating and feeling her blood sugar is low accu check obtained patients BG 47 reported to provider hypoglycemic protocol followed Blood sugar 15 min later 252 recheck in 5 min 227 patient reports feeling better and diaphoresis has resided
[2021-12-13] MEDS: dextrose 50% syringe 50 mL IVP (15:58)
--- NOTE | 2021-12-13 17:05 | PC.NURSE ---
1230 patient became SOB auscultation of lungs noted crakles and expiratory wheezing RT notfied and bi pap placed provider notified instruction obtained to give 40mg lasix x1 IVP 1330 patient recovered reports decrease SOB and lungs have become more clear to auscultation
[2021-12-13 18:12] LABS: Glucose Point of Care 227 mg/dL (70-110)
[2021-12-13 18:12] LABS: Glucose Point of Care 252 mg/dL (70-110)
[2021-12-13 18:12] LABS: Glucose Point of Care 47 mg/dL (70-110)
--- NOTE | 2021-12-13 18:46 | PC.NURSE ---
Patient received at 1830 from CSU recovery. Observed right groin site. drsg in place. clean and dry. Patient denied pain at present.
--- NOTE | 2021-12-13 19:22 | PM.PN ---
Subjective Subjective: Patient underwent left heart catheterization with a left and right coronary angiogram today. She was found to have a high-grade lesions in the LAD and first diagonal branch. Underwent a PCI of these lesions by Dr. Stearns. Currently she seems to be stable. Denies any chest pain or chest tightness. Medications: Medication Review Details: Current Medications Acetaminophen (Acetaminophen 325 Mg Tablet) 650 mg PO Q6H PRN PRN Reason: MILD PAIN Last Admin: 12/11/21 21:14 Dose: 650 mg Documented by: Al Hydrox/Mg Hydrox/Simethicone (Tmiz-Ifo-Lealyvnga-Erin 30 Ml Udc) 30 ml PO Q15M PRN PRN Reason: INDIGESTION Albuterol/Ipratropium (Ipratropium-Albuterol 3 Ml Neb) 3 ml INHALATION Q6H [facility] Last Admin: 12/13/21 14:46 Dose: 3 ml Documented by: Alprazolam (Alprazolam 0.5 Mg Tablet) 0.25 mg PO TID PRN PRN Reason: ANXIETY Amlodipine Besylate (Amlodipine 5 Mg Tablet) 2.5 mg PO DAILY [facility] Last Admin: 12/13/21 05:30 Dose: 2.5 mg Documented by: Aspirin (Aspirin 81 Mg Ec Tablet) 81 mg PO DAILY [facility] Last Admin: 12/13/21 05:29 Dose: 81 mg Documented by: Atropine Sulfate (Atropine 1 Mg/Ml Sdv 1 Ml) 0.5 mg IVP PRN PRN PRN Reason: Symptomatic bradycardia Clopidogrel Bisulfate (Clopidogrel 75 Mg Tablet) 75 mg PO DAILY [facility] Last Admin: 12/13/21 05:28 Dose: 75 mg Documented by: Fentanyl (Fentanyl 50 Mcg/Ml Inj 2ml) 50 mcg IVP PRN PRN PRN Reason: Pain Furosemide (Furosemide 40 Mg Tablet) 60 mg PO DAILY@0800 [facility] Glucagon (Glucagon 1 Mg/Ml Inj 1 Ml) 1 mg IM ONCE PRN; Protocol PRN Reason: Adult Acute Hypoglycemia Prot. Heparin Sodium (Porcine) (Heparin 5,000 Unit/Ml Inj 1 Ml) 5,000 unit SUBCUT Q12H [facility] Last Admin: 12/13/21 14:29 Dose: Not Given Documented by: Hydralazine HCl (Hydralazine 20 Mg/Ml Inj 1 Ml) 10 mg IVP Q4H PRN PRN Reason: spb>180 dbp >110 Hydrocortisone (Hydrocortisone 10 Mg Tablet) 10 mg PO BID [facility] Last Admin: 12/13/21 05:29 Dose: 10 mg Documented by: Dextrose (D5w) 500 mls @ 100 mls/hr IV ONCE PRN; Protocol PRN Reason: Adult Acute Hypoglycemia Prot Ferric Sodium Gluconate 125 mg (/ Sodium Chloride) 110 mls @ 110 mls/hr IV Q24H [facility] Stop: 12/18/21 09:59 Last Infusion: 12/13/21 10:50 Dose: Infused Documented by: Insulin Glargine (Insulin Glargine 100 Units/1 Ml) 14 unit SUBCUT BID@0900,2100 [facility] Last Admin: 12/13/21 09:01 Dose: 14 unit Documented by: Insulin Human Lispro (Insulin Lispro 100 Unit/1 Ml) 0 unit SUBCUT WM&BEDTIME [facility]; Protocol Last Admin: 12/13/21 17:03 Dose: Not Given Documented by: Losartan Potassium (Losartan 50 Mg Tablet) 25 mg PO DAILY [facility] Last Admin: 12/13/21 05:29 Dose: 25 mg Documented by: Magnesium Hydroxide (Magnesium Hydroxide 30 Ml Udc) 30 ml PO DAILY PRN PRN Reason: CONSTIPATION Metoclopramide HCl (Metoclopramide 5 Mg/Ml Sdv 2 Ml) 10 mg IVP Q6H PRN PRN Reason: NAUSEA AND VOMITING Last Admin: 12/05/21 16:31 Dose: 10 mg Documented by: Metoprolol Tartrate (Metoprolol Tartrate 50 Mg Tablet) 50 mg PO BID@0900,2100 [facility] Last Admin: 12/13/21 05:30 Dose: 50 mg Documented by: Naloxone HCl (Naloxone 0.4 Mg/Ml Sdv) 0.1 mg IVP Q2M PRN PRN Reason: RESPIRATORY RATE < 8/MIN Nitroglycerin (Nitroglycerin 0.4 Mg Sublingual Tablet) 0.4 mg SUBLINGUAL Q5M PRN PRN Reason: CHEST PAIN Ondansetron HCl (Ondansetron 2 Mg/Ml Sdv 2 Ml) 4 mg IVP Q6H PRN PRN Reason: NAUSEA AND VOMITING Last Admin: 12/05/21 14:26 Dose: 4 mg Documented by: Pantoprazole Sodium (Pantoprazole Dr 40 Mg Tablet) 40 mg PO DAILY [facility] Last Admin: 12/13/21 09:00 Dose: 40 mg Documented by: Paroxetine HCl (Paroxetine 20 Mg Tablet) 20 mg PO QAM [facility] Last Admin: 12/13/21 05:29 Dose: 20 mg Documented by: Temazepam (Temazepam 15 Mg Capsule) 15 mg PO BEDTIME PRN PRN Reason: INSOMNIA Vitals/I&O/Wt Last Vital Signs Temp 97.6 F 12/13/21 03:28 Pulse 97 12/13/21 17:30 Resp 18 12/13/21 17:30 BP 148/89 12/13/21 17:30 Pulse Ox 97 12/13/21 16:45 12/13/21 12/13/21 12/13/21 06:59 14:59 22:59 Intake Total 0 / 706 1555 / 1555 360 / 1915 Output Total 800 / 800 600 / 1400 Balance 0 / -294 755 / 755 -240 / 515 Weight last 48 hrs Weight 135 lb 6.4 oz Physical Exam Narrative: GENERAL: The patient is alert and oriented times three. Not in any acute distress. HEENT: Moderate pallor. No, icterus or lymphadenopathy.Oral cavity: There are no mucous membrane lesions. NECK: Trachea appears to be central. No masses noted. No JVD or thyromegaly appreciated. RESPIRATORY: Chest is symmetrical. No intercostals muscle retraction or any accessory muscle activation. There is no chest wall tenderness. Breath sounds are heard bilaterally. No rales or rhonchi heard. No evidence of any consolidation. BREASTS: Deferred. HEART: The heart sounds are normal. No S3 or S4. No significant murmurs. No pericardial rub ABDOMEN: No vessel pulsations or distention. No tenderness. No organomegaly appreciated. Bowel sounds are normally heard. : Deferred. RECTAL: Deferred. LYMPHATIC: No lymphadenopathy noted in the neck. EXTREMITIES: No edema or cyanosis. No clubbing. MUSCULOSKELETAL: No acute joint deformities or swelling SKIN: There are no significant rashes or ecchymosis NEUROPSYCHIATRIC: The patient is alert and oriented x3. Appears to be in a good mood. No tremors or rigidity noted. Urinary Catheter Management: Fall: Cath Placed During This Visit: yes, but has since been removed by the nurse Reason for Continuing Indwelling Catheter: Accurate Measurement of Urinary Output in Critically Ill Patients Urinary Catheter Date of Insertion: 12/04/21 Urinary Catheter Time of Insertion: 05:00 Date Urinary Catheter Removed: 12/10/21 Time Urinary Catheter Discontinued: 13:49 Data : 12/13/21 04:31 12/13/21 04:31 Other Labs: Laboratory Last Values WBC 8.8 10^3/uL (4.0-10.0) 12/13/21 04:31 RBC 3.31 10^6/uL (4.1-5.3) L 12/13/21 04:31 Hgb 9.3 g/dL (11.5-15.3) L 12/13/21 04:31 Hct 28.2 % (37.0-47.0) L 12/13/21 04:31 MCV 85.2 fl (81-99) 12/13/21 04:31 MCH 28.1 pg (28.0-34.0) 12/13/21 04:31 MCHC 33.0 g/dL (30.0-36.0) 12/13/21 04:31 RDW 14.2 % (12.1-15.1) 12/13/21 04:31 Plt Count 239 10^3/cmm (130-400) 12/13/21 04:31 MPV 9.5 fL (7.4-10.4) 12/13/21 04:31 Neut % (Auto) 77.1 % 12/13/21 04:31 Lymph % (Auto) 14.8 % 12/13/21 04:31 [place] % (Auto) 5.3 % 12/13/21 04:31 Eos % (Auto) 2.0 % 12/13/21 04:31 Baso % (Auto) 0.2 % 12/13/21 04:31 Neut # (Auto) 6.81 10^3/uL (1.8-7.7) 12/13/21 04:31 Lymph # (Auto) 1.3 10^3/uL (0.8-4.8) 12/13/21 04:31 [place] # (Auto) 0.5 10^3/uL (0.2-0.9) 12/13/21 04:31 Eos # (Auto) 0.2 10^3/uL (0.0-0.8) 12/13/21 04:31 Baso # (Auto) 0.0 10^3/uL (0.0-0.1) 12/13/21 04:31 Nucleated RBC % (auto) 0 % 12/13/21 04:31 Nucleated RBCs # 0.0 /100WBC 12/13/21 04:31 APTT 49.0 SECONDS (23.9-36.7) H D 12/13/21 13:59 D-Dimer 2.91 ug/mIFEU (0-0.59) H 12/04/21 08:53 Specimen Type Arterial 12/05/21 16:17 Sample Site Radial, left 12/05/21 16:17 ABG pH 7.26 (7.35-7.45) L 12/05/21 16:17 ABG pCO2 54.3 mmHg (35-45) H 12/05/21 16:17 ABG pO2 73.9 mmHg (80.0-100.0) L 12/05/21 16:17 ABG HCO3 24.6 mmol/L (22-26) 12/05/21 16:17 ABG O2 Saturation 88.5 12/05/21 13:41 ABG Base Excess -2.7 mmol/L (-2.0-2.0) L 12/05/21 16:17 Kaushik Test Pos 12/05/21 16:17 A-a O2 Gradient 11.7 mmHg (5-10) H 12/05/21 13:41 Hematocrit 28.8 % (37-47) L 12/05/21 16:17 Hgb O2 Saturation 86.9 % (95-100) L 12/05/21 13:41 Carboxyhemoglobin 1.0 %THgb (0.4-20.1) 12/05/21 13:41 Methemoglobin 0.8 % (0.4-1.5) 12/05/21 13:41 Total Hemoglobin 9.9 g/dL (12-16) L 12/05/21 13:41 Sodium 138.0 mmol/L (131-143) 12/05/21 13:41 Potassium 4.9 mmol/L (3.5-5.0) 12/05/21 13:41 Glucose 157.0 mg/dL (70-115) H 12/05/21 13:41 Ionized Calcium 1.2 mmol/L (1.1-1.4) 12/05/21 13:41 O2 Delivery Device Nc 12/05/21 16:17 O2 Liters/Min 4.0 % 12/05/21 16:17 FiO2 36.0 % 12/05/21 16:17 Tidal Volume 0.40 12/05/21 04:00 PEEP 5.0 cmH20 12/05/21 04:00 Invoice Machine Operator ID Cak 12/05/21 16:17 Sodium 138 mmol/L (136-145) 12/13/21 04:31 Potassium 4.7 mmol/L (3.5-5.1) 12/13/21 04:31 Chloride 105 mmol/L (98-107) 12/13/21 04:31 Carbon Dioxide 27 mmol/L (22-29) 12/13/21 04:31 Anion Gap 10.7 (5-19) 12/13/21 04:31 BUN 24 mg/dL (6-20) H 12/13/21 04:31 Creatinine 1.5 mg/dL (0.5-0.9) H 12/13/21 04:31 GFR Calculation 38.5 mL/min (90-130) L 12/13/21 04:31 Glucose 182 mg/dL (65-115) H 12/13/21 04:31 POC Glucose 227 mg/dL (70-110) H 12/13/21 16:10 Calculated Osmolality 295 mOsm/kg (285-295) 12/13/21 04:31 Lactic Acid 0.6 mmol/L (0.5-2.2) 12/04/21 04:40 Uric Acid 5.8 mg/dL (2.4-5.7) H 12/06/21 02:33 Calcium 8.7 mg/dL (8.5-10.5) 12/13/21 04:31 Phosphorus 3.8 mg/dL (2.5-4.5) 12/13/21 04:31 Magnesium 1.9 mg/dL (1.7-2.3) 12/13/21 04:31 Iron 51 ug/dL (37-145) 12/08/21 04:10 TIBC 218 mcg/dl 12/08/21 04:10 % Saturation 23.3 % (20-50) 12/08/21 04:10 Unsat Iron Binding 167 ug/dL (112-347) 12/08/21 04:10 Ferritin 101 ng/mL (15-150) 12/08/21 04:10 Total Bilirubin 0.2 mg/dL (0.15-1.2) 12/13/21 04:31 AST 13 U/L (0-32) 12/13/21 04:31 ALT 19 U/L (0-33) 12/13/21 04:31 Alkaline Phosphatase 105 IU/L (35-105) 12/13/21 04:31 Creatine Kinase 123 U/L (26-192) 12/07/21 08:41 Troponin T Baseline 51 ng/L (0-10) H 12/04/21 04:40 Troponin T 120 Minute 56.39 ng/L (0-10) H 12/04/21 06:39 Delta Troponin T 5.39 ABS# (0-10) 12/04/21 06:39 Troponin T Hi Sens 6Hr 62.85 ng/L (0-10) H 12/04/21 10:49 Troponin T Hi Sens 6Hr Delta 11.85 ng/L (0-12) 12/04/21 10:49 C-Reactive Protein 4.9 mg/L (0.0-4.9) 12/04/21 04:40 NT-Pro-B Natriuret Pep 4152 pg/mL (0-125) H 12/04/21 04:40 Total Protein 5.4 g/dL (6.6-8.7) L 12/13/21 04:31 Albumin 3.0 g/dL (3.5-5.2) L 12/13/21 04:31 Globulin 2.4 g/dL (1.3-4.6) 12/13/21 04:31 Procalcitonin 0.58 ng/mL (0-0.5) H 12/04/21 04:40 TSH 3.05 uIU/mL (0.27-4.20) 12/05/21 03:36 Ser , Semi-Qnt 0.50 mIU/mL 12/07/21 03:03 Random Cortisol 2.17 ug/dL (2.47-19.5) L 12/05/21 03:36 Urine Color Yellow (Yellow) 12/06/21 12:27 Urine Appearance Sl hazy (CLEAR) 12/06/21 12:27 Urine pH 6.5 (5-7) 12/06/21 12:27 Ur Specific [place] 1.025 (1.005-1.030) 12/06/21 12:27 Urine Protein 3+ (Negative) H 12/06/21 12:27 Urine Glucose (UA) 2+ (Normal) H 12/06/21 12:27 Urine Ketones Negative (Negative) 12/06/21 12:27 Urine Blood 2+ (Negative) H 12/06/21 12:27 Urine Nitrate Positive (Negative) H 12/06/21 12:27 Urine Bilirubin Neg (Negative) 12/06/21 12:27 Urine Urobilinogen Norm mg/dL (Negative) 12/06/21 12:27 Ur Leukocyte Esterase Trace (Negative) H 12/06/21 12:27 Urine RBC 0-4 /hpf (0-2) H 12/06/21 12:27 Urine WBC 0-4 /hpf (0-5) H 12/06/21 12:27 Ur Squamous Epith Cells 0-4 /hpf (0-5) H 12/06/21 12:27 Amorphous Sediment Trace /hpf 12/06/21 12:27 Urine Bacteria 1+ /hpf (NONE) H 12/06/21 12:27 Hyaline Casts 0-4 /lpf H 12/04/21 04:58 Coarse Granular Casts 0-4 /lpf H 12/04/21 04:58 Urine Mucus Trace /hpf 12/06/21 12:27 U Random Total Protein 331 mg/dL 12/07/21 11:00 Ur Random Sodium < 10 mmol/L 12/06/21 12:27 Ur Random Urea Nitrogn 487 mg/dL 12/06/21 12:27 Urine Creatinine 63 mg/dL (28-217) 12/07/21 11:00 Coronavirus 229E (PCR) Not detected (NOT DETECT) 12/04/21 06:30 SARS-CoV-2 (PCR) Not detected (NOT DETECT) 12/04/21 06:30 A&P Assessment and plan (1) Diastolic heart failure: Patient's heart failure is compensated. Most likely this is related to coronary ischemia along with COPD. She may continue on her current medications. Status: Acute (2) Adrenal insufficiency: Continue on the current management. Follow-up evaluation as scheduled. Status: Acute (3) Hypertension: Currently the blood pressure is in the normal range. Continue on the current medication. Status: Acute (4) Type 1 diabetes mellitus: The blood sugar seems to be under control. Continue on the current management. Status: Acute Qualifiers: Diabetes mellitus complication status: with hyperglycemia Qualified Code(s): E10.65 - Type 1 diabetes mellitus with hyperglycemia (5) Chronic kidney disease: The kidney function seems stable. Has some improvement of the BUN/creatinine ratio. Status: Acute Plan We will continue monitoring the patient with the telemetry. If she continues remain stable, may be discharged home tomorrow. Attestations Medical Necessity Statement*: Disposition as per the primary 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 of Care Code Acute Gas Producer for [facility] Fwd Diagnoses Diastolic heart failure I50.30 Adrenal insufficiency E27.40 Hypertension I10 Type 1 diabetes mellitus E10.65 Diabetes mellitus complication status: with hyperglycemia Chronic kidney disease N18.9
[2021-12-14] VITALS (21 sets, daily range): BP systolic 125–180; BP diastolic 69–119; PULSE 84–107; RESP 15–21; TEMP 36.3–36.9; O2SAT 92–100
[2021-12-14 01:55] LABS: Glucose Point of Care 187 mg/dL (70-110)
[2021-12-14] MEDS: ipratropium-albuterol 3 mL Neb INHALATION ×4 (02:11→20:06)
[2021-12-14 04:32] LABS: Basophils % 0.3 %; Eosinophils # 0.2 10^3/uL (0.0-0.8); Eosinophils % 1.4 %; Hematocrit 26.1 % (37.0-47.0); Hemoglobin 8.6 g/dL (11.5-15.3); Lymphocytes # 1.1 10^3/uL (0.8-4.8); Lymphocytes % 10.4 %; Mean Corpuscular Hemoglobin 28.2 pg (28.0-34.0); Mean Corpuscular Volume 85.6 fl (81-99); Mean Platelet Volume 9.5 fL (7.4-10.4); Monocytes # 0.7 10^3/uL (0.2-0.9); Monocytes % 6.8 %; Neutrophils # 8.84 10^3/uL (1.8-7.7); Neutrophils % 80.6 %; Nucleated Red Blood Cells % 0 %; Platelet Count 207 10^3/cmm (130-400); Red Blood Count 3.05 10^6/uL (4.1-5.3); Red Cell Distribution Width 14.4 % (12.1-15.1)
[2021-12-14 04:51] LABS: Alanine Aminotransferase 16 U/L (0-33); Albumin Level 2.8 g/dL (3.5-5.2); Alkaline Phosphatase 127 IU/L (35-105); Anion Gap 14.1 (5-19); Aspartate Amino Transferase 13 U/L (0-32); Blood Urea Nitrogen 32 mg/dL (6-20); Calcium 8.2 mg/dL (8.5-10.5); Carbon Dioxide 25 mmol/L (22-29); Chloride 100 mmol/L (98-107); Globulin 2.3 g/dL (1.3-4.6); Glomerular Filtration Rate 24.7 mL/min (90-130); Glucose 169 mg/dL (65-115); Magnesium 1.8 mg/dL (1.7-2.3); Osmolality Calculated 289 mOsm/kg (285-295); Phosphorus 4.5 mg/dL (2.5-4.5); Potassium 5.1 mmol/L (3.5-5.1); Sodium 134 mmol/L (136-145); Total Bilirubin 0.2 mg/dL (0.15-1.2); Total Protein 5.1 g/dL (6.6-8.7)
--- NOTE | 2021-12-14 06:59 | P.PN_ITS ---
Subjective Subjective: tired. used cpap at night. states she is urinating. no n/v/f/c/bray/d/leg pains/ sob Medications: Reviewed: Yes Medication Review Details: Current Medications Acetaminophen (Acetaminophen 325 Mg Tablet) 650 mg PO Q6H PRN PRN Reason: MILD PAIN Last Admin: 12/11/21 21:14 Dose: 650 mg Documented by: Al Hydrox/Mg Hydrox/Simethicone (Lvde-Wlk-Wwwbptxqs-Erin 30 Ml Udc) 30 ml PO Q15M PRN PRN Reason: INDIGESTION Albuterol/Ipratropium (Ipratropium-Albuterol 3 Ml Neb) 3 ml INHALATION Q6H [facility] Last Admin: 12/14/21 02:11 Dose: 3 ml Documented by: Alprazolam (Alprazolam 0.5 Mg Tablet) 0.25 mg PO TID PRN PRN Reason: ANXIETY Amlodipine Besylate (Amlodipine 5 Mg Tablet) 2.5 mg PO DAILY [facility] Last Admin: 12/13/21 05:30 Dose: 2.5 mg Documented by: Aspirin (Aspirin 81 Mg Ec Tablet) 81 mg PO DAILY [facility] Last Admin: 12/13/21 05:29 Dose: 81 mg Documented by: Atropine Sulfate (Atropine 1 Mg/Ml Sdv 1 Ml) 0.5 mg IVP PRN PRN PRN Reason: Symptomatic bradycardia Clopidogrel Bisulfate (Clopidogrel 75 Mg Tablet) 75 mg PO DAILY [facility] Last Admin: 12/13/21 05:28 Dose: 75 mg Documented by: Fentanyl (Fentanyl 50 Mcg/Ml Inj 2ml) 50 mcg IVP PRN PRN PRN Reason: Pain Furosemide (Furosemide 40 Mg Tablet) 60 mg PO DAILY@0800 [facility] Glucagon (Glucagon 1 Mg/Ml Inj 1 Ml) 1 mg IM ONCE PRN; Protocol PRN Reason: Adult Acute Hypoglycemia Prot. Heparin Sodium (Porcine) (Heparin 5,000 Unit/Ml Inj 1 Ml) 5,000 unit SUBCUT Q12H [facility] Last Admin: 12/14/21 06:39 Dose: Not Given Documented by: Hydralazine HCl (Hydralazine 20 Mg/Ml Inj 1 Ml) 10 mg IVP Q4H PRN PRN Reason: spb>180 dbp >110 Hydrocortisone (Hydrocortisone 10 Mg Tablet) 10 mg PO BID [facility] Last Admin: 12/13/21 21:25 Dose: 10 mg Documented by: Dextrose (D5w) 500 mls @ 100 mls/hr IV ONCE PRN; Protocol PRN Reason: Adult Acute Hypoglycemia Prot Ferric Sodium Gluconate 125 mg (/ Sodium Chloride) 110 mls @ 110 mls/hr IV Q24H [facility] Stop: 12/18/21 09:59 Last Infusion: 12/13/21 10:50 Dose: Infused Documented by: Insulin Glargine (Insulin Glargine 100 Units/1 Ml) 14 unit SUBCUT BID@0900,2100 [facility] Last Admin: 12/13/21 22:56 Dose: Not Given Documented by: Insulin Human Lispro (Insulin Lispro 100 Unit/1 Ml) 0 unit SUBCUT WM&BEDTIME [facility]; Protocol Last Admin: 12/13/21 22:55 Dose: Not Given Documented by: Losartan Potassium (Losartan 50 Mg Tablet) 25 mg PO DAILY [facility] Last Admin: 12/13/21 05:29 Dose: 25 mg Documented by: Magnesium Hydroxide (Magnesium Hydroxide 30 Ml Udc) 30 ml PO DAILY PRN PRN Reason: CONSTIPATION Metoclopramide HCl (Metoclopramide 5 Mg/Ml Sdv 2 Ml) 10 mg IVP Q6H PRN PRN Reason: NAUSEA AND VOMITING Last Admin: 12/05/21 16:31 Dose: 10 mg Documented by: Metoprolol Tartrate (Metoprolol Tartrate 50 Mg Tablet) 50 mg PO BID@0900,2100 [facility] Last Admin: 12/13/21 21:25 Dose: 50 mg Documented by: Naloxone HCl (Naloxone 0.4 Mg/Ml Sdv) 0.1 mg IVP Q2M PRN PRN Reason: RESPIRATORY RATE < 8/MIN Nitroglycerin (Nitroglycerin 0.4 Mg Sublingual Tablet) 0.4 mg SUBLINGUAL Q5M PRN PRN Reason: CHEST PAIN Ondansetron HCl (Ondansetron 2 Mg/Ml Sdv 2 Ml) 4 mg IVP Q6H PRN PRN Reason: NAUSEA AND VOMITING Last Admin: 12/05/21 14:26 Dose: 4 mg Documented by: Pantoprazole Sodium (Pantoprazole Dr 40 Mg Tablet) 40 mg PO DAILY [facility] Last Admin: 12/13/21 09:00 Dose: 40 mg Documented by: Paroxetine HCl (Paroxetine 20 Mg Tablet) 20 mg PO QAM [facility] Last Admin: 12/13/21 05:29 Dose: 20 mg Documented by: Temazepam (Temazepam 15 Mg Capsule) 15 mg PO BEDTIME PRN PRN Reason: INSOMNIA Vitals/I&O/Wt Last Vital Signs Temp 98.3 F 12/14/21 04:00 Pulse 93 12/14/21 04:00 Resp 21 H 12/14/21 04:00 BP 129/69 12/14/21 04:00 Pulse Ox 99 12/14/21 04:00 12/13/21 12/13/21 12/14/21 14:59 22:59 06:59 Intake Total 1555 / 1555 360 / 1915 Output Total 800 / 800 600 / 1400 Balance 755 / 755 -240 / 515 Physical Exam Narrative: comfortable in bed, NARD vss heent- nc/at, eomi, anicteric neck supple lungs- clear b/l heart reg, +CARLYN abd soft, nt, nd, + bs ext trace leg edema neuro- a,a, o x 3 Urinary Catheter Management: Fall: Cath Placed During This Visit: yes, but has since been removed by the nurse Reason for Continuing Indwelling Catheter: Accurate Measurement of Urinary Output in Critically Ill Patients Urinary Catheter Date of Insertion: 12/04/21 Urinary Catheter Time of Insertion: 05:00 Date Urinary Catheter Removed: 12/10/21 Time Urinary Catheter Discontinued: 13:49 Data : 12/14/21 04:17 12/14/21 04:17 A&P Assessment and plan (1) Diabetic nephropathy: 41 yr old female 1. MARCELA -improved- D Dx is CI- MARCELA, Prerenal from CRS 2. recurrent MARCELA- 24 hrs s/p CArdiac cath- likely CI-MARCELA. Also concern for cholesterol emboli -will hold losartan -monitor renal fxn 3. CKD from DM- likely stage 3. monitor where cr plateaus -once stable- she should use an ARB and likely Farxigia - HOLD FOR NOW W/ MARCELA -no hydronephrosis on ct scan 4. hyponatremia - from MARCELA. check urine na, ua. ur cr -fluid restrict 5. anemia - ferritin 101, tsat 23%- iv iron as infection improved. needs complete NANCI evaluation -hgb dropped a little s/p cardiac cath 6.DM control per medicine 7.moderate pleural effusions and small pericardial effusion- cardiology/ pulm/ renal fu 8. adrenal insufficiency per chart- outpt f/u bp okay 9. needs nutrition- hypoalbuminemia seen and examined w/ RN- telehealth visit time spent 30 min Status: Acute Plan see above Attestations Medical Necessity Statement*: marcela s/p cardiac cath- monitor renal fxn in a DM w/ CKD stage 3 Time Spent in Patient Care: 16 - 35 minutes (>than 50% of time spent in counselling and/or direct pt care on unit) . 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 of Care Code Acute Roll Press Operator for Bubba Gates Diagnoses Diabetic nephropathy E11.21
[2021-12-14 09:22] LABS: Glucose Point of Care 233 mg/dL (70-110)
[2021-12-14] MEDS: losartan 50 mg Tablet 25 MG PO (09:30)
[2021-12-14] MEDS: pantoprazole DR 40 mg Tablet PO (09:30)
[2021-12-14] MEDS: PARoxetine 20 mg Tablet PO (09:30)
[2021-12-14] MEDS: aspirin 81 mg EC Tablet PO (09:30)
[2021-12-14] MEDS: clopidogrel 75 mg Tablet PO (09:30)
[2021-12-14] MEDS: amlodipine 5 mg Tablet 2.5 MG PO (09:30)
[2021-12-14] MEDS: hydrocortisone 10 mg Tablet PO ×2 (09:31→17:20)
[2021-12-14] MEDS: metoprolol tartrate 50 mg Tablet PO (09:33)
[2021-12-14] MEDS: ferric gluconate 125 MG in sodium chloride 0.9% (100 ml) 100 ML 110 MG IV (10:59)
[2021-12-14 11:01] LABS: Glucose Point of Care 338 mg/dL (70-110)
--- NOTE | 2021-12-14 11:33 | ECG_ITS ---
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 Measurements Intervals [place] Rate: 94 P: 64 ME: 174 QRS: 38 QRSD: 78 T: 82 QT: 327 QTc: 410 Interpretive Statements SINUS RHYTHM LEFT ATRIAL ENLARGEMENT [-0.15mV P-WAVE IN V1/V2] POSSIBLE RIGHT VENTRICULAR CONDUCTION DELAY [RSR (QR) IN V1/V2] NONSPECIFIC T-WAVE ABNORMALITY Compared to ECG 12/05/2021 13:36:35 Atrial abnormality now present T-wave abnormality now present Sinus tachycardia no longer present Electronically Signed On 12-15-2021 5:45:46 CDT by Coreen Ramos M.D. [id number]
[2021-12-14] MEDS: metoprolol tartrate 1 mg/1 mL SDV 5 mL 5 MG IVP (12:00)
--- NOTE | 2021-12-14 12:03 | PC.NURSE ---
I reprted the high bpto the nurse 180/119
[2021-12-14 12:17] LABS: Glucose Point of Care 323 mg/dL (70-110)
[2021-12-14 12:18] LABS: Anion Gap 13.7 (5-19); Blood Urea Nitrogen 36 mg/dL (6-20); Calcium 8.5 mg/dL (8.5-10.5); Carbon Dioxide 25 mmol/L (22-29); Chloride 96 mmol/L (98-107); Glomerular Filtration Rate 21.3 mL/min (90-130); Glucose 308 mg/dL (65-115); Osmolality Calculated 288 mOsm/kg (285-295); Phosphorus 4.9 mg/dL (2.5-4.5); Potassium 5.7 mmol/L (3.5-5.1); Sodium 129 mmol/L (136-145)
[2021-12-14] MEDS: FUROsemide 40 mg Tablet PO (12:22)
[2021-12-14 12:40] LABS: Troponin(5th) Baseline 191 ng/L (0-10)
[2021-12-14] MEDS: insulin lispro 100 unit/1 mL SUBCUT (12:59)
--- NOTE | 2021-12-14 13:29 | P.PN_ITS ---
Subjective Subjective: The patient is feeling okay. She has not had any chest pain or palpitations. No shortness of breath. No other specific complaints. Medications: Medication Review Details: Current Medications Acetaminophen (Acetaminophen 325 Mg Tablet) 650 mg PO Q6H PRN PRN Reason: MILD PAIN Last Admin: 12/11/21 21:14 Dose: 650 mg Documented by: Al Hydrox/Mg Hydrox/Simethicone (Rabj-Uxl-Hdxjpmfql-Erin 30 Ml Udc) 30 ml PO Q 15M PRN PRN Reason: INDIGESTION Albuterol/Ipratropium (Ipratropium-Albuterol 3 Ml Neb) 3 ml INHALATION Q6H [facility] Last Admin: 12/14/21 08:08 Dose: 3 ml Documented by: Alprazolam (Alprazolam 0.5 Mg Tablet) 0.25 mg PO TID PRN PRN Reason: ANXIETY Amlodipine Besylate (Amlodipine 5 Mg Tablet) 2.5 mg PO DAILY [facility] Last Admin: 12/14/21 09:30 Dose: 2.5 mg Documented by: Aspirin (Aspirin 81 Mg Ec Tablet) 81 mg PO DAILY [facility] Last Admin: 12/14/21 09:30 Dose: 81 mg Documented by: Atropine Sulfate (Atropine 1 Mg/Ml Sdv 1 Ml) 0.5 mg IVP PRN PRN PRN Reason: Symptomatic bradycardia Clopidogrel Bisulfate (Clopidogrel 75 Mg Tablet) 75 mg PO DAILY [facility] Last Admin: 12/14/21 09:30 Dose: 75 mg Documented by: Furosemide (Furosemide 40 Mg Tablet) 40 mg PO DAILY@0800 [facility] Last Admin: 12/14/21 12:22 Dose: 40 mg Documented by: Glucagon (Glucagon 1 Mg/Ml Inj 1 Ml) 1 mg IM ONCE PRN; Protocol PRN Reason: Adult Acute Hypoglycemia Prot. Heparin Sodium (Porcine) (Heparin 5,000 Unit/Ml Inj 1 Ml) 5,000 unit SUBCUT Q12H [facility] Last Admin: 12/14/21 06:39 Dose: Not Given Documented by: Hydralazine HCl (Hydralazine 20 Mg/Ml Inj 1 Ml) 10 mg IVP Q4H PRN PRN Reason: spb>180 dbp >110 Hydrocortisone (Hydrocortisone 10 Mg Tablet) 10 mg PO BID [facility] Last Admin: 12/14/21 09:31 Dose: 10 mg Documented by: Dextrose (D5w) 500 mls @ 100 mls/hr IV ONCE PRN; Protocol PRN Reason: Adult Acute Hypoglycemia Prot Ferric Sodium Gluconate 125 mg (/ Sodium Chloride) 110 mls @ 110 mls/hr IV Q24H [facility] Stop: 12/18/21 09:59 Last Infusion: 12/14/21 12:07 Dose: Infused Documented by: Insulin Glargine (Insulin Glargine 100 Units/1 Ml) 14 unit SUBCUT BID@0900,2100 [facility] Last Admin: 12/14/21 09:31 Dose: Not Given Documented by: Insulin Human Lispro (Insulin Lispro 100 Unit/1 Ml) 0 unit SUBCUT WM&BEDTIME [facility]; Protocol Last Admin: 12/14/21 12:59 Dose: 14 unit Documented by: Magnesium Hydroxide (Magnesium Hydroxide 30 Ml Udc) 30 ml PO DAILY PRN PRN Reason: CONSTIPATION Metoclopramide HCl (Metoclopramide 5 Mg/Ml Sdv 2 Ml) 10 mg IVP Q6H PRN PRN Reason: NAUSEA AND VOMITING Last Admin: 12/05/21 16:31 Dose: 10 mg Documented by: Metoprolol Tartrate (Metoprolol Tartrate 50 Mg Tablet) 50 mg PO BID@0900,2100 [facility] Last Admin: 12/14/21 09:33 Dose: 50 mg Documented by: Metoprolol Tartrate (Metoprolol Tartrate 1 Mg/1 Ml Sdv 5 Ml) 5 mg IVP Q4H PRN PRN Reason: HR more than 120 bpm, arrythmi Last Admin: 12/14/21 12:00 Dose: 5 mg Documented by: Naloxone HCl (Naloxone 0.4 Mg/Ml Sdv) 0.1 mg IVP Q2M PRN PRN Reason: RESPIRATORY RATE < 8/MIN Nitroglycerin (Nitroglycerin 0.4 Mg Sublingual Tablet) 0.4 mg SUBLINGUAL Q5M PRN PRN Reason: CHEST PAIN Ondansetron HCl (Ondansetron 2 Mg/Ml Sdv 2 Ml) 4 mg IVP Q6H PRN PRN Reason: NAUSEA AND VOMITING Last Admin: 12/05/21 14:26 Dose: 4 mg Documented by: Pantoprazole Sodium (Pantoprazole Dr 40 Mg Tablet) 40 mg PO DAILY [facility] Last Admin: 12/14/21 09:30 Dose: 40 mg Documented by: Paroxetine HCl (Paroxetine 20 Mg Tablet) 20 mg PO [facility] Last Admin: 12/14/21 09:30 Dose: 20 mg Documented by: Temazepam (Temazepam 15 Mg Capsule) 15 mg PO BEDTIME PRN PRN Reason: INSOMNIA Vitals/I&O/Wt Last Vital Signs Temp 98.4 F 12/14/21 12:00 Pulse 107 H 12/14/21 12:00 Resp 17 12/14/21 12:00 BP 180/119 12/14/21 12:00 Pulse Ox 92 12/14/21 12:00 12/13/21 12/14/21 12/14/21 22:59 06:59 14:59 Intake Total 360 / 1915 1370 / 1370 Output Total 600 / 1400 1625 / 1625 Balance -240 / 515 -255 / -255 Physical Exam Narrative: GENERAL: The patient is alert and oriented times three. Not in any acute distress. HEENT: Moderate pallor.? No, icterus or lymphadenopathy.Oral cavity: There are no mucous membrane lesions. NECK: Trachea appears to be central. No masses noted. No JVD or thyromegaly appreciated. RESPIRATORY: Breath sounds are bilateral with no rales or rhonchi. BREASTS: Deferred. HEART: The heart sounds are normal.? No S3 or S4. ? No significant murmurs.? No pericardial rub ABDOMEN: No vessel pulsations or distention. No tenderness. No organomegaly appreciated.? Bowel sounds are normally heard. : Deferred. RECTAL: Deferred. LYMPHATIC: No lymphadenopathy noted in the neck. EXTREMITIES: No edema or cyanosis. No clubbing. No hematoma bleeding from the right groin MUSCULOSKELETAL: No acute joint deformities or swelling SKIN: There are no significant rashes or ecchymosis NEUROPSYCHIATRIC: The patient is alert and oriented x3. Appears to be in a good mood. No tremors or rigidity noted. Urinary Catheter Management: Fall: Cath Placed During This Visit: yes, but has since been removed by the nurse Reason for Continuing Indwelling Catheter: Accurate Measurement of Urinary Output in Critically Ill Patients Urinary Catheter Date of Insertion: 12/04/21 Urinary Catheter Time of Insertion: 05:00 Date Urinary Catheter Removed: 12/10/21 Time Urinary Catheter Discontinued: 13:49 Data : 12/14/21 04:17 12/14/21 11:53 A&P Assessment and plan (1) Atherosclerosis of coronary artery of [place] heart without angina pectoris: Patient underwent cardiac catheterization yesterday. She was found to have severe diffuse disease in the mid LAD and in the first diagonal branch artery. She underwent PCI of these lesions. Currently seems to be stable. Status: Acute (2) Diastolic heart failure: The heart failure seems to be compensated. Status: Acute (3) Chronic kidney disease: Patient seems to have an acute elevation of the BUN and creatinine possible related to acute renal injury from the contrast. We will continue the careful IV hydration. Repeat BMP in the morning. Status: Acute (4) Adrenal insufficiency: Continue on the current management. Follow-up evaluation as scheduled. Status: Acute (5) Hypertension: Currently the blood pressure is in the normal range. Continue on the current medication. Status: Acute (6) Type 1 diabetes mellitus: Blood sugar is elevated. Management as per the primary. Status: Acute Qualifiers: Diabetes mellitus complication status: with hyperglycemia Qualified Code(s): E10.65 - Type 1 diabetes mellitus with hyperglycemia Plan Repeat BMP in the morning. Appreciated nephrology input Attestations Medical Necessity Statement*: Patient requires continued hospital stay for close monitoring and further management 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 of Care Code Acute Respiratory Care Assistant for Chg Fwd History Expanded Problem Focused Exam Detailed Medical Decision Making Moderate Complexity Diagnoses Diastolic heart failure I50.30 Adrenal insufficiency E27.40 Hypertension I10 Type 1 diabetes mellitus E10.65 Diabetes mellitus complication status: with hyperglycemia Chronic kidney disease N18.9 Atherosclerosis of coronary artery of [place] heart without angina pectoris I25.10
--- NOTE | 2021-12-14 13:33 | ECG_ITS ---
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 Measurements Intervals [place] Rate: 94 P: 65 [place]: 179 QRS: 35 QRSD: 80 T: 89 QT: 328 QTc: 410 Interpretive Statements SINUS RHYTHM POSSIBLE RIGHT VENTRICULAR CONDUCTION DELAY [RSR (QR) IN V1/V2] POSSIBLE ANTERIOR MYOCARDIAL INFARCTION , OF INDETERMINATE AGE [30 ms Q WAVE IN V3/V4, OR R < 0.2 mV IN V4] INTERPRETATION BASED ON A DEFAULT AGE OF 41 YEARS Compared to ECG 12/05/2021 13:36:35 Myocardial infarct finding now present Sinus tachycardia no longer present Electronically Signed On 12-15-2021 6:01:52 CDT by Coreen Ramos M.D. [id number]
[2021-12-14 14:29] LABS: Troponin 5 2HR 179.4 ng/L (0-10); Troponin 5 2HR Delta -11.6 ABS# (0-10)
--- NOTE | 2021-12-14 15:38 | PC.NURSE ---
1130 HR noted on Tele monitoring 205 patient sitting up in bed no complaints of chest pain denies SOB is alert and oriented patient asked to ly back and bi placed HR responded and returned to 97 1200 patient on tele again showed HR of 210 patient alert and oriented sitting up in bed Provider notified instructed to get EKG and series trops orders placed by provider EKg reports NSR with a rate of 94 1230 patient becomes diaphoretic and extremely sob bi pap placed and orders followed provided by provider patient recovered and resting in bed with eyes closed respirations even and non labored on bi pap
--- NOTE | 2021-12-14 16:12 | PM.PN ---
Subjective Subjective: No acute vents overnight. Denies any nausea vomiting, headache. Today morning plan was to discharge blood patient had 2 episodes of nonsustained V. tach on the monitor associated with palpitation and second episode associated with sweating and mild chest heaviness. Troponin cycle was done. Patient was given 1 extra dose IV Lopressor after which patient settled down. Remains on 1 to 2 L oxygen supplementation. During the event patient's blood pressure elevated to 180/100 mmhg. Vitals/I&O/Wt Last Vital Signs Temp 97.8 F 12/14/21 15:43 Pulse 90 12/14/21 15:43 Resp 15 12/14/21 15:43 BP 125/77 12/14/21 15:43 Pulse Ox 100 12/14/21 15:43 12/14/21 12/14/21 12/14/21 06:59 14:59 22:59 Intake Total 1422 / 1422 Output Total 1735 / 1735 Balance -313 / -313 Physical Exam Narrative: GenNERAL: The patient is alert and oriented times three. Not in any acute distress. RESPIRATORY: Chest is symmetrical. No intercostals muscle retraction or any accessory muscle activation. There is no chest wall tenderness. Breath sounds are heard bilaterally. No rales or rhonchi heard. No evidence of any consolidation.? Diminished intensity of breath sounds in the bases. HEART: The heart sounds are normal.? No S3 or S4.? Short systolic murmur at the base of the heart.? ABDOMEN: Soft, nontender EXTREMITIES: Trace edema Urinary Catheter Management: Fall: Cath Placed During This Visit: yes, but has since been removed by the nurse Reason for Continuing Indwelling Catheter: Accurate Measurement of Urinary Output in Critically Ill Patients Urinary Catheter Date of Insertion: 12/04/21 Urinary Catheter Time of Insertion: 05:00 Date Urinary Catheter Removed: 12/10/21 Time Urinary Catheter Discontinued: 13:49 Data : 12/14/21 04:17 12/14/21 11:53 A&P Assessment and plan (1) Positive cardiac stress test: Status: Acute (2) CAD (coronary artery disease): Status: Acute (3) Diastolic heart failure: Status: Acute (4) Adrenal insufficiency: Status: Acute (5) Hypertension: Status: Acute (6) Type 1 diabetes mellitus: Status: Acute Qualifiers: Diabetes mellitus complication status: with hyperglycemia Qualified Code(s): E10.65 - Type 1 diabetes mellitus with hyperglycemia (7) Chronic kidney disease: Status: Acute Plan #Acute respiratory failure with hypoxia and hypercapnia #Vent dependent respiratory failure?resolved #Pneumonia on admission #Chronic anemia #MARCELA on CKD secondary to contrast versus cardiorenal #Hyperkalemia #Type II PR/demand ischemia #History of stroke May 2021 #Type 1 diabetes mellitus with hyperglycemia #Adrenal insufficiency -Extubated December 06.? Still requiring BiPAP on and off.? ? Continue DuoNeb every 6 hours as needed Has finished a course of antibiotics for pneumonia. Positive stress test. Underwent PCI to LAD. Goal blood pressure less than 140/90 mmHg. Stop losartan. Increase Lopressor to 75 mg twice daily. Continue aspirin, statin, Plavix. Recurrent episodes of hypoglycemia. Patient refusing insulin sliding scale. Otherwise sugars going as high as 300s. Increase Lantus to 25 units twice daily. Recurrent MARCELA. Most likely contrast-induced nephropathy. Stop losartan. Medical reconciliation done for nephrotoxic drugs. Appreciate cardiology and nephrology recommendations. For possible adrenal insufficiency continue with hydrocortisone 10 mg twice daily. Plan for day: Patient has worsening acute kidney injury today. Most likely secondary to contrast-induced nephropathy. Recheck BMP, mag level. Replace 1 mg of IV magnesium. Cycle troponins. IV Lopressor 5 mg once. Increase dose of Lopressor to 75 mg twice daily. Stop losartan. Increase amlodipine to 5 mg daily. Monitor input output charting. Start on 40 mg oral Lasix. Continue telemetry. Home Discharge planning: Plan to discharge in next 24 hours if remains hemodynamically stable based oxygen supplementation. Attestations Medical Necessity Statement*: Requires further hospitalization for management of acute respiratory failure secondary congestive heart failure, post PCI, recurrent MARCELA in a patient with adrenal insufficiency and recurrent episodes of hypoglycemia Time Spent in Patient Care: Greater than 35 minutes 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 of Care Code Acute Mulling Machine Operator for Bubba Gates Diagnoses Positive cardiac stress test R94.39 CAD (coronary artery disease) I25.10 Diastolic heart failure I50.30 Adrenal insufficiency E27.40 Hypertension I10 Type 1 diabetes mellitus E10.65 Diabetes mellitus complication status: with hyperglycemia Chronic kidney disease N18.9
[2021-12-14 16:55] LABS: Glucose Point of Care 59 mg/dL (70-110)
[2021-12-14] MEDS: heparin 5,000 unit/mL INJ 1 mL 5000 UNIT SUBCUT ×2 (17:19→23:34)
[2021-12-14] MEDS: ALPRAZolam 0.5 mg Tablet 0.25 MG PO (17:20)
[2021-12-14 17:22] LABS: Glucose Point of Care 113 mg/dL (70-110)
--- NOTE | 2021-12-14 17:33 | ECG_ITS ---
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 Measurements Intervals [place] Rate: 96 P: 67 CT: 172 QRS: 32 QRSD: 79 T: 90 QT: 329 QTc: 416 Interpretive Statements SINUS RHYTHM LEFT ATRIAL ENLARGEMENT [-0.15mV P-WAVE IN V1/V2] POSSIBLE RIGHT VENTRICULAR CONDUCTION DELAY [RSR (QR) IN V1/V2] NONSPECIFIC T-WAVE ABNORMALITY Compared to ECG 12/14/2021 13:12:18 Atrial abnormality now present T-wave abnormality now present Myocardial infarct finding no longer present Electronically Signed On 12-15-2021 6:03:20 CDT by Coreen Ramos M.D. [id number]
[2021-12-14 20:49] LABS: Glucose Point of Care 294 mg/dL (70-110)
[2021-12-14 20:49] LABS: Glucose Point of Care 226 mg/dL (70-110)
[2021-12-14] MEDS: temazepam 15 mg Capsule PO (21:26)
[2021-12-14] MEDS: insulin glargine 100 units/1 mL 25 UNIT SUBCUT (21:26)
[2021-12-14] MEDS: metoprolol tartrate 50 mg Tablet 75 MG PO (21:26)
[2021-12-15] VITALS (18 sets, daily range): BP systolic 122–158; BP diastolic 70–97; PULSE 82–107; RESP 14–21; TEMP 36.3–36.7; O2SAT 89–100
[2021-12-15] MEDS: ipratropium-albuterol 3 mL Neb INHALATION ×4 (03:16→20:24)
[2021-12-15 04:55] LABS: Alanine Aminotransferase 17 U/L (0-33); Albumin Level 2.7 g/dL (3.5-5.2); Alkaline Phosphatase 119 IU/L (35-105); Anion Gap 16.8 (5-19); Aspartate Amino Transferase 14 U/L (0-32); Blood Urea Nitrogen 45 mg/dL (6-20); Calcium 8.4 mg/dL (8.5-10.5); Carbon Dioxide 23 mmol/L (22-29); Chloride 98 mmol/L (98-107); Globulin 2.3 g/dL (1.3-4.6); Glucose 182 mg/dL (65-115); Magnesium 2.4 mg/dL (1.7-2.3); Osmolality Calculated 290 mOsm/kg (285-295); Phosphorus 5.8 mg/dL (2.5-4.5); Potassium 5.8 mmol/L (3.5-5.1); Sodium 132 mmol/L (136-145); Total Bilirubin 0.2 mg/dL (0.15-1.2)
[2021-12-15] MEDS: PARoxetine 20 mg Tablet PO (05:29)
[2021-12-15 06:14] LABS: Glucose Point of Care 205 mg/dL (70-110)
--- NOTE | 2021-12-15 08:45 | PC.NURSE ---
anxiety,sob Pt had episode of Sinus tachycardia in 115 to 120s. per case monitor,case monitor shows HR of 200s. Pt checked and is sitting up, spo2 of 92-98% on 2 L. Applied bipap to help the work of breathing, Dr ordered to take it off. Xanax given and her BB med. BP-159/97,ST-110s. applied 2 L/min NC back on. Will keep monitoring.
[2021-12-15] MEDS: insulin lispro 100 unit/1 mL SUBCUT ×2 (09:02→12:30)
[2021-12-15] MEDS: metoprolol tartrate 50 mg Tablet 75 MG PO ×2 (09:04→21:31)
[2021-12-15] MEDS: aspirin 81 mg EC Tablet PO (09:04)
[2021-12-15] MEDS: amlodipine 5 mg Tablet PO (09:04)
[2021-12-15] MEDS: pantoprazole DR 40 mg Tablet PO (09:04)
[2021-12-15] MEDS: ALPRAZolam 0.5 mg Tablet 0.25 MG PO (09:04)
[2021-12-15] MEDS: hydrocortisone 10 mg Tablet PO ×2 (09:28→17:43)
[2021-12-15] MEDS: clopidogrel 75 mg Tablet PO (09:28)
--- NOTE | 2021-12-15 10:16 | CTR_ITS ---
PROCEDURE INFORMATION: Exam: CT Chest Without Contrast; Diagnostic Exam date and time: 12/15/2021 12:01 PM Age: 41 years old Clinical indication: Shortness of breath; Additional info: Hypoxia TECHNIQUE: Imaging protocol: Diagnostic computed tomography of the chest without contrast. Radiation optimization: All CT scans at this facility use at least one of these dose optimization techniques: automated exposure control; mA and/or kV adjustment per patient size (includes targeted exams where dose is matched to clinical indication); or iterative reconstruction. COMPARISON: CT angio chest PE protcl [id number] 12/04/2021 10:21 AM RADIATION DOSE METRICS: Total DLP (mGy-cm): 462.26 FINDINGS: Lungs: There is bilateral lower lobe lung consolidation. There is nodular opacification in the right upper lobe of the lung. Pleural spaces: There are moderate bilateral pleural effusions. No pneumothorax. Heart: Unremarkable. No cardiomegaly. No pericardial effusion. Lymph nodes: There is right paratracheal and prevascular mediastinal adenopathy with a short-axis diameter of 1 cm. Vasculature: Unremarkable. No aortic aneurysm. Bones/joints: Degenerative change is identified in the spine. There is no evidence for acute fracture or malalignment. Soft tissues: Unremarkable. CT/CT chest wo [facility] [id number] IMPRESSION: No significant change when compared with 12/04/2021. Bilateral pleural effusions, lung consolidation and intrathoracic adenopathy are again identified.
--- NOTE | 2021-12-15 10:18 | USCV_ITS ---
Mariana Ace Age: 41 Gender: F : 1980 Exam Date: 12/15/2021 15:37 Ordering Phys: Dl Duran MD Technologist: LALI Exam Location: [facility] – [place] Indication: Assess LV function BP: 137 / 84 HR: 90 Rhythm: Sinus Technical Quality: Adequate MEASUREMENTS (Male / Female) Normal Values 2D ECHO LV Diastolic Diameter PLAX 4.6 cm 4.2 - 5.9 / 3.9 - 5.3 cm LV Systolic Diameter PLAX 3.3 cm IVS Diastolic Thickness 1.1 cm 0.6 - 1.0 / 0.6 - 0.9 cm IVS Systolic Thickness 1.5 cm LVPW Diastolic Thickness 1.1 cm 0.6 - 1.0 / 0.6 - 0.9 cm LVPW Systolic Thickness 1.4 cm LVOT Diameter 2.0 cm LV Ejection Fraction 2D Teich 53.3 % LV Ejection Fraction MOD 2C 59.2 % LV Ejection Fraction 2C AL 58.0 % LA Diameter 2.8 cm Aorta at Sinotubular Diameter 1.8 cm M-MODE Aortic Annulus Diameter 2.4 cm LA Ao Ratio MM 1.1 MV E Point Septal Separation 1.4 cm FINDINGS Left Ventricle Normal left ventricular cavity size. Mildly decreased left ventricular systolic function. Left ventricular ejection fraction is estimated at 50-55 %. There is hypokinesis of mid inferolateral, apical lateral and apical septal metz. Right Ventricle Normal right ventricular size and systolic function. Right Atrium Right atrium not well visualized. Left Atrium Normal left atrial size. Mitral Valve Mitral annular calcification. Thickened mitral valve. Aortic Valve Structurally normal trileaflet aortic valve. Tricuspid Valve Tricuspid valve not well visualized. Pulmonic Valve Pulmonic valve not well visualized. Pericardium No pericardial effusion. Aorta Normal size aortic root and proximal ascending aorta. IVC Inferior vena cava not visualized. CONCLUSIONS 1. This is a technically difficult study. Optison was used per protocol. 2. Normal left ventricular cavity size and mildly decreased systolic function. Left ventricular ejection fraction is estimated at 50-55 %. There is hypokinesis of mid inferolateral, apical lateral and apical septal metz. Angelic Ding MD (Electronically Signed) Final Date: 15 December 2021 18:41 S
[2021-12-15] MEDS: ferric gluconate 125 MG in sodium chloride 0.9% (100 ml) 100 ML 110 MG IV (11:21)
[2021-12-15] MEDS: sodium chloride 0.9% 1,000 ML 50 ML IV (11:37)
[2021-12-15 11:40] LABS: Glucose Point of Care 223 mg/dL (70-110)
[2021-12-15 11:49] LABS: NT Pro B Type Natriuretic Pept 24150 pg/mL (0-125); Procalcitonin 0.26 ng/mL (0-0.5)
[2021-12-15 12:03] LABS: Specific Gravity, Urine 1.005 (1.005-1.030); Urine Appearance Clear (CLEAR); Urine Color Yellow (Yellow); pH Urine 6.5 (5-7)
[2021-12-15 12:04] LABS: Add Urine Culture? No; Bilirubin Urine Neg (Negative); Blood Urine Neg (Negative); Glucose Urine UA 2+ (Normal); Ketones Urine Negative (Negative); Leukocyte Esterase Urine Negative (Negative); Nitrate Urine Negative (Negative); Protein Urine 3+ (Negative); RBC Urine 0-4 /hpf (0-2); Renal Epithelial Cells Urine 5 /hpf; Urobilinogen Urine Norm (Negative); WBC Urine 0-4 /hpf (0-5)
--- NOTE | 2021-12-15 12:06 | PM.PN ---
Subjective Subjective: She was tachycardiac and SOB this morning. She was on BiPaP last night and this morning, SR/ST on telemetry. recieved ativan and looks comfortable now.Fall catheter was placed and was started on fluids Medications: Reviewed: Yes Vitals/I&O/Wt Last Vital Signs Temp 98.0 F 12/15/21 04:00 Pulse 97 12/15/21 11:35 Resp 14 12/15/21 11:35 BP 122/74 12/15/21 11:35 Pulse Ox 99 12/15/21 11:35 12/14/21 12/15/21 12/15/21 22:59 06:59 14:59 Intake Total 480 / 1902 550 / 2452 240 / 240 Output Total 300 / 2035 Balance 480 / 167 250 / 417 240 / 240 Weight last 48 hrs Weight 146 lb 9.6 oz Physical Exam Narrative: Gen: patient look older than her stated age, sitting in chair HEENT: EOMI, No pallor or icterus RS: CTAB/L xcepat at bilateral bases, No wheezes or rales CVS: S1, S2 normal, No murmur or gallop Ext: trace edema REPRODUCTIVE HEALTHCARE ASSISTANT: AAOx 3, No FND Urinary Catheter Management: Fall: Cath Placed During This Visit: yes, but has since been removed by the nurse Reason for Continuing Indwelling Catheter: Accurate Measurement of Urinary Output in Critically Ill Patients Urinary Catheter Date of Insertion: 12/15/21 Urinary Catheter Time of Insertion: 11:11 Date Urinary Catheter Removed: 12/10/21 Time Urinary Catheter Discontinued: 13:49 Data : 12/14/21 04:17 12/15/21 04:03 A&P Assessment and plan (1) Atherosclerosis of coronary artery of [place] heart without angina pectoris: Patient underwent cardiac catheterization and was found to have severe diffuse disease in the mid LAD and in the first diagonal branch artery. She underwent PCI of these lesions. Currently seems to be stable. Status: Acute (2) Diastolic heart failure: The heart failure seems to be compensated. Status: Acute (3) Chronic kidney disease: MARCELA on CKD 2/2 YOUSIF -agree with fluids Status: Acute (4) Adrenal insufficiency: Continue on the current management. Follow-up evaluation as scheduled. Status: Acute (5) Hypertension: Currently the blood pressure is in the normal range. Continue on the current medication. Status: Acute (6) Type 1 diabetes mellitus: Blood sugar is elevated. Management as per the primary. Status: Acute Qualifiers: Diabetes mellitus complication status: with hyperglycemia Qualified Code(s): E10.65 - Type 1 diabetes mellitus with hyperglycemia Plan Repeat BMP in the morning. Appreciated nephrology input Attestations Medical Necessity Statement*: needs hospital stay for YOUSIF 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 of Care Code Acute Adjunct Instructor for g Fwd Diagnoses Atherosclerosis of coronary artery of [place] heart without angina pectoris I25.10 Diastolic heart failure I50.30 Chronic kidney disease N18.9 Adrenal insufficiency E27.40 Hypertension I10 Type 1 diabetes mellitus E10.65 Diabetes mellitus complication status: with hyperglycemia
[2021-12-15 12:16] LABS: Potassium, Radom Urine 32 mmol/L; Urine Creatinine 26 mg/dL (28-217); Urine Random Chloride 20 mmol/L; Urine Random Sodium 23 mmol/L
[2021-12-15] MEDS: insulin glargine 100 units/1 mL 25 UNIT SUBCUT ×2 (12:31→21:35)
[2021-12-15 13:14] LABS: Troponin T (5th) Once 235 ng/L (0-10)
[2021-12-15] MEDS: ALPRAZolam 0.5 mg Tablet PO ×2 (13:53→21:31)
[2021-12-15] MEDS: sodium polystyrene sulfonate 15 gm/60 mL Btl PO (13:53)
--- NOTE | 2021-12-15 14:43 | P.PN_ITS ---
Subjective Subjective: Patient has remained on BiPAP ventilation since yesterday evening. Saturating more than 95%. Today morning on examination: Of BiPAP to 2 L nasal cannula. Patient states she is feeling better. Denies of any nausea or vomiting. Feeling anxious. Saturating 97%. Heart rate has remained stable. Denies any chest pain. Documented 400 L positive yesterday. Overall in admission 1700 cc positive. Vitals/I&O/Wt Last Vital Signs Temp 98.0 F 12/15/21 04:00 Pulse 97 12/15/21 11:35 Resp 14 12/15/21 11:35 BP 122/74 12/15/21 11:35 Pulse Ox 99 12/15/21 11:35 12/14/21 12/15/21 12/15/21 22:59 06:59 14:59 Intake Total 480 / 1902 550 / 2452 830 / 830 Output Total 300 / 2035 100 / 100 Balance 480 / 167 250 / 417 730 / 730 Weight last 48 hrs Weight 66.497 kg Physical Exam Narrative: General: AOx3, anxious RESPIRATORY: Chest is symmetrical. No intercostals muscle retraction or any accessory muscle activation. There is no chest wall tenderness. Breath sounds are heard bilaterally. No rales or rhonchi heard. No evidence of any consolidation.? Diminished intensity of breath sounds in the bases. HEART: The heart sounds are normal.? No S3 or S4.? Short systolic murmur at the base of the heart.? ABDOMEN: Soft, nontender EXTREMITIES: Trace edema Urinary Catheter Management: Fall: Cath Placed During This Visit: yes, but has since been removed by the nurse Reason for Continuing Indwelling Catheter: Accurate Measurement of Urinary Output in Critically Ill Patients Urinary Catheter Date of Insertion: 12/15/21 Urinary Catheter Time of Insertion: 11:11 Date Urinary Catheter Removed: 12/10/21 Time Urinary Catheter Discontinued: 13:49 Data : 12/14/21 04:17 12/15/21 04:03 A&P Assessment and plan (1) Acute kidney injury superimposed on CKD: Status: Acute (2) Atherosclerosis of coronary artery of [place] heart without angina pectoris: Status: Acute (3) Diastolic heart failure: Status: Acute (4) Bilateral pleural effusion: Status: Acute (5) Positive cardiac stress test: Status: Acute (6) Adrenal insufficiency: Status: Acute (7) Hypertension: Status: Acute (8) Type 1 diabetes mellitus: Status: Acute Qualifiers: Diabetes mellitus complication status: with hyperglycemia Qualified Code(s): E10.65 - Type 1 diabetes mellitus with hyperglycemia Plan #Acute respiratory failure with hypoxia and hypercapnia #Vent dependent respiratory failure?resolved #Pneumonia on admission #Chronic anemia #MARCELA on CKD secondary to contrast versus cardiorenal #Hyperkalemia #Type II NE/demand ischemia #History of stroke May 2021 #Type 1 diabetes mellitus with hyperglycemia #Adrenal insufficiency Recurrent MARCELA: Could be secondary to contrast-induced nephropathy, CRI versus fat embolism from recent angiography. Medical reconciliation done for nephrotoxic drugs. Start on gentle IV hydration with normal saline at 50 cc an hour for next 24 h ours. Repeat BMP in evening. Patient is at high risk of dialysis. Appreciate nephrology recommendations. Hold off on losartan. Hold off on any diuretic. Check urine studies, urinalysis, urine lites, urine creatinine. Shortness of breath: Could be a combination of CHF and anxiety. Monitor for fluid overload. Increase dose of Paxil. 0.5 Xanax every 8 hours as needed. Precedex if needed. Repeat CT chest to rule out consolidation. Patient did have bilateral pleural effusion on previous study. If continues to have shortness of breath or worsening oxygen supplementation will need to consult pulmonology for thoracentesis. Check proBNP, procalcitonin, sputum culture Extubated on 12/06. ? Continue DuoNeb every 6 hours as needed Has finished a course of antibiotics for pneumonia. Positive stress test. Underwent PCI to LAD. Goal blood pressure less than 140/90 mmHg. Stop losartan. Increase Lopressor to 75 mg twice daily. Continue aspirin, statin, Plavix. Recurrent episodes of hypoglycemia. Patient refusing insulin sliding scale. Blood sugars better controlled with Lantus 25 units twice daily, sliding scale low-dose protocol. For possible adrenal insufficiency continue with hydrocortisone 10 mg twice daily. Plan for day: Gentle IV hydration. Repeat BMP in evening. Kayexalate for hyperkalemia. Monitor blood sugar and blood pressure. Target blood pressure less than 140/90 mmHg. Fall catheterization for strict and proper charting. Increase dose of Paxil, Xanax 0.5 3 times daily as needed, Precedex if needed. Discharge planning: Patient has worsening MARCELA again. Might need dialysis. Hold off on discharge. Once cleared plan. Attestations Medical Necessity Statement*: Requires further hospitalization for management of recurrent MARCELA in setting of recent angiogram, respiratory distress secondary to CHF bilateral pleural effusion Time Spent in Patient Care: Greater than 35 minutes 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 of Care Code Acute Refractory Specialist for Chg Fwd Diagnoses Positive cardiac stress test R94.39 Diastolic heart failure I50.30 Adrenal insufficiency E27.40 Hypertension I10 Type 1 diabetes mellitus E10.65 Diabetes mellitus complication status: with hyperglycemia Bilateral pleural effusion J90 Atherosclerosis of coronary artery of [place] heart without angina pectoris I25.10 Acute kidney injury superimposed on CKD N17.9; N18.9
[2021-12-15] MEDS: heparin 5,000 unit/mL INJ 1 mL 5000 UNIT SUBCUT (15:20)
[2021-12-15] MEDS: perflutren protein-a microsphr 0.22 mg/mL SDV 3 mL IV (16:37)
--- NOTE | 2021-12-15 17:00 | PC.NURSE ---
notified family talked to pt's dgtr in law and updated her on pt's current status and treatments. Per dgtr in law, they would like pt to be in an acute care rehab vs snf if case mgt can find. they are concerned about pt's freq hospitalizations. Message left to case mgt.
[2021-12-15 17:03] LABS: Glucose Point of Care 103 mg/dL (70-110)
[2021-12-15] MEDS: acetaminophen 325 mg Tablet 650 MG PO (17:43)
[2021-12-15 18:12] LABS: Blood Urea Nitrogen 46 mg/dL (6-20); Calcium 8.5 mg/dL (8.5-10.5); Carbon Dioxide 21 mmol/L (22-29); Chloride 94 mmol/L (98-107); Glomerular Filtration Rate 10.6 mL/min (90-130); Glucose 90 mg/dL (65-115); Osmolality Calculated 281 mOsm/kg (285-295); Sodium 130 mmol/L (136-145)
--- NOTE | 2021-12-15 19:00 | PC.NURSE ---
Notified Television Installer Helper Left a voicemail to Dr. Wooten to give us a call back. Will update him on pt's BMP at 5pm and output. no answer. Bedside report given to Tomasa and updated her on pt's BMP level and urine output.
[2021-12-15] MEDS: donepezil 5 MG Tablet 10 MG PO (21:31)
[2021-12-15] MEDS: temazepam 15 mg Capsule PO (21:31)
[2021-12-15 22:22] LABS: Glucose Point of Care 135 mg/dL (70-110)
[2021-12-16] VITALS (15 sets, daily range): BP systolic 123–163; BP diastolic 75–91; PULSE 79–101; RESP 16–21; TEMP 36–36.6; O2SAT 90–100
[2021-12-16] MEDS: heparin 5,000 unit/mL INJ 1 mL 5000 UNIT SUBCUT ×2 (01:43→13:01)
[2021-12-16] MEDS: ipratropium-albuterol 3 mL Neb INHALATION ×4 (02:27→21:33)
[2021-12-16] MEDS: PARoxetine 20 mg Tablet 30 MG PO (04:14)
[2021-12-16 04:19] LABS: Basophils % 0.4 %; Eosinophils # 0.1 10^3/uL (0.0-0.8); Eosinophils % 1.8 %; Hematocrit 24.6 % (37.0-47.0); Lymphocytes # 0.9 10^3/uL (0.8-4.8); Lymphocytes % 12.6 %; Mean Corpuscular HGB Conc 32.5 g/dL (30.0-36.0); Mean Corpuscular Hemoglobin 27.8 pg (28.0-34.0); Mean Corpuscular Volume 85.4 fl (81-99); Mean Platelet Volume 9.4 fL (7.4-10.4); Monocytes # 0.6 10^3/uL (0.2-0.9); Monocytes % 7.4 %; Neutrophils # 5.72 10^3/uL (1.8-7.7); Neutrophils % 77.1 %; Nucleated Red Blood Cells % 0 %; Platelet Count 198 10^3/cmm (130-400); Red Blood Count 2.88 10^6/uL (4.1-5.3); White Blood Count 7.4 10^3/uL (4.0-10.0)
[2021-12-16 04:39] LABS: Alanine Aminotransferase 17 U/L (0-33); Albumin Level 2.9 g/dL (3.5-5.2); Alkaline Phosphatase 126 IU/L (35-105); Anion Gap 15.3 (5-19); Aspartate Amino Transferase 14 U/L (0-32); Blood Urea Nitrogen 50 mg/dL (6-20); Calcium 7.8 mg/dL (8.5-10.5); Carbon Dioxide 23 mmol/L (22-29); Chloride 97 mmol/L (98-107); Globulin 2.3 g/dL (1.3-4.6); Glomerular Filtration Rate 10.6 mL/min (90-130); Glucose 77 mg/dL (65-115); Magnesium 2.4 mg/dL (1.7-2.3); Osmolality Calculated 282 mOsm/kg (285-295); Phosphorus 7.4 mg/dL (2.5-4.5); Potassium 5.3 mmol/L (3.5-5.1); Sodium 130 mmol/L (136-145); Total Bilirubin 0.2 mg/dL (0.15-1.2); Total Protein 5.2 g/dL (6.6-8.7)
[2021-12-16 06:37] LABS: Glucose Point of Care 76 mg/dL (70-110)
[2021-12-16] MEDS: sodium polystyrene sulfonate 15 gm/60 mL Btl PO (09:53)
[2021-12-16] MEDS: ALPRAZolam 0.5 mg Tablet PO ×3 (09:53→22:34)
[2021-12-16] MEDS: clopidogrel 75 mg Tablet PO (09:59)
[2021-12-16] MEDS: hydrocortisone 10 mg Tablet PO ×2 (10:00→17:25)
[2021-12-16] MEDS: pantoprazole DR 40 mg Tablet PO (10:00)
[2021-12-16] MEDS: metoprolol tartrate 50 mg Tablet 75 MG PO ×2 (10:00→20:49)
[2021-12-16] MEDS: aspirin 81 mg EC Tablet PO (10:00)
[2021-12-16] MEDS: amlodipine 5 mg Tablet PO (10:01)
[2021-12-16] MEDS: ferric gluconate 125 MG in sodium chloride 0.9% (100 ml) 100 ML 110 MG IV (10:14)
[2021-12-16 11:48] LABS: Glucose Point of Care 117 mg/dL (70-110)
--- NOTE | 2021-12-16 12:07 | P.PN_ITS ---
Subjective Subjective: Feels ok, a little SOB and on a higher dose of NC. CT noted with stable pleural effusions. Minimal global edema and no overt uremic Sx. Vitals remain stable. UO a little better over the last 24hrs Medications: Reviewed: Yes Medication Review Details: Current Medications Acetaminophen (Acetaminophen 325 Mg Tablet) 650 mg PO Q6H PRN PRN Reason: MILD PAIN Last Admin: 12/11/21 21:14 Dose: 650 mg Documented by: Al Hydrox/Mg Hydrox/Simethicone (Juxh-Gbt-Fsjzpijmh-Erin 30 Ml Udc) 30 ml PO Q15M PRN PRN Reason: INDIGESTION Albuterol/Ipratropium (Ipratropium-Albuterol 3 Ml Neb) 3 ml INHALATION Q6H [facility] [place] Last Admin: 12/14/21 08:08 Dose: 3 ml Documented by: Alprazolam (Alprazolam 0.5 Mg Tablet) 0.25 mg PO TID PRN PRN Reason: ANXIETY Amlodipine Besylate (Amlodipine 5 Mg Tablet) 2.5 mg PO DAILY [facility] [place] Last Admin: 12/14/21 09:30 Dose: 2.5 mg Documented by: Aspirin (Aspirin 81 Mg Ec Tablet) 81 mg PO DAILY [facility] [place] Last Admin: 12/14/21 09:30 Dose: 81 mg Documented by: Atropine Sulfate (Atropine 1 Mg/Ml Sdv 1 Ml) 0.5 mg IVP PRN PRN PRN Reason: Symptomatic bradycardia Clopidogrel Bisulfate (Clopidogrel 75 Mg Tablet) 75 mg PO DAILY [facility] [place] Last Admin: 12/14/21 09:30 Dose: 75 mg Documented by: Furosemide (Furosemide 40 Mg Tablet) 40 mg PO DAILY@0800 [facility] [place] Last Admin: 12/14/21 12:22 Dose: 40 mg Documented by: Glucagon (Glucagon 1 Mg/Ml Inj 1 Ml) 1 mg IM ONCE PRN; Protocol PRN Reason: Adult Acute Hypoglycemia Prot. Heparin Sodium (Porcine) (Heparin 5,000 Unit/Ml Inj 1 Ml) 5,000 unit SUBCUT Q12H [facility] [place] Last Admin: 12/14/21 06:39 Dose: Not Given Documented by: Hydralazine HCl (Hydralazine 20 Mg/Ml Inj 1 Ml) 10 mg IVP Q4H PRN PRN Reason: spb>180 dbp >110 Hydrocortisone (Hydrocortisone 10 Mg Tablet) 10 mg PO BID [facility] [place] Last Admin: 12/14/21 09:31 Dose: 10 mg Documented by: Dextrose (D5w) 500 mls @ 100 mls/hr IV ONCE PRN; Protocol PRN Reason: Adult Acute Hypoglycemia Prot Ferric Sodium Gluconate 125 mg (/ Sodium Chloride) 110 mls @ 110 mls/hr IV Q24H [facility] [place] Stop: 12/18/21 09:59 Last Infusion: 12/14/21 12:07 Dose: Infused Documented by: Insulin Glargine (Insulin Glargine 100 Units/1 Ml) 14 unit SUBCUT BID@0900,2100 [facility] [place] Last Admin: 12/14/21 09:31 Dose: Not Given Documented by: Insulin Human Lispro (Insulin Lispro 100 Unit/1 Ml) 0 unit SUBCUT WM&BEDTIME [facility] [place]; Protocol Last Admin: 12/14/21 12:59 Dose: 14 unit Documented by: Magnesium Hydroxide (Magnesium Hydroxide 30 Ml Udc) 30 ml PO DAILY PRN PRN Reason: CONSTIPATION Metoclopramide HCl (Metoclopramide 5 Mg/Ml Sdv 2 Ml) 10 mg IVP Q6H PRN PRN Reason: NAUSEA AND VOMITING Last Admin: 12/05/21 16:31 Dose: 10 mg Documented by: Metoprolol Tartrate (Metoprolol Tartrate 50 Mg Tablet) 50 mg PO BID@0900,2100 [facility] [place] Last Admin: 12/14/21 09:33 Dose: 50 mg Documented by: Metoprolol Tartrate (Metoprolol Tartrate 1 Mg/1 Ml Sdv 5 Ml) 5 mg IVP Q4H PRN PRN Reason: HR more than 120 bpm, arrythmi Last Admin: 12/14/21 12:00 Dose: 5 mg Documented by: Naloxone HCl (Naloxone 0.4 Mg/Ml Sdv) 0.1 mg IVP Q2M PRN PRN Reason: RESPIRATORY RATE < 8/MIN Nitroglycerin (Nitroglycerin 0.4 Mg Sublingual Tablet) 0.4 mg SUBLINGUAL Q5M PRN PRN Reason: CHEST PAIN Ondansetron HCl (Ondansetron 2 Mg/Ml Sdv 2 Ml) 4 mg IVP Q6H PRN PRN Reason: NAUSEA AND VOMITING Last Admin: 12/05/21 14:26 Dose: 4 mg Documented by: Pantoprazole Sodium (Pantoprazole Dr 40 Mg Tablet) 40 mg PO DAILY [facility] [place] Last Admin: 12/14/21 09:30 Dose: 40 mg Documented by: Paroxetine HCl (Paroxetine 20 Mg Tablet) 20 mg PO QAM [facility] Last Admin: 12/14/21 09:30 Dose: 20 mg Documented by: Temazepam (Temazepam 15 Mg Capsule) 15 mg PO BEDTIME PRN PRN Reason: INSOMNIA Vitals/I&O/Wt Last Vital Signs Temp 97.8 F 12/16/21 11:29 Pulse 97 12/16/21 11:29 Resp 18 12/16/21 11:29 BP 124/75 12/16/21 11:29 Pulse Ox 99 12/16/21 11:29 12/15/21 12/16/21 12/16/21 22:59 06:59 14:59 Intake Total 676 / 1624 920 / 2544 Output Total 100 / 200 750 / 950 450 / 450 Balance 576 / 1424 170 / 1594 -450 / -450 Weight last 48 hrs Weight 66.769 kg Weight 66.497 kg Physical Exam Narrative: Constitutional: Awake, comfortable HEENT: Wet mucosa, no jvp, non icteric Lungs: Bilaterally clear without discernible wheeze, rales in all lung zones CVS: S1 S2, no murmurs Abdo: Soft, BS ok Ext 4: Minimal edema, peripheral perfusion with no cyanosis Neurological: Grossly non-focal Urinary Catheter Management: Fall: Cath Placed During This Visit: yes, but has since been removed by the nurse Reason for Continuing Indwelling Catheter: Acute Urinary Retention or Obstruction Urinary Catheter Date of Insertion: 12/15/21 Urinary Catheter Time of Insertion: 11:11 Date Urinary Catheter Removed: 12/10/21 Time Urinary Catheter Discontinued: 13:49 Data : 12/16/21 03:50 12/16/21 03:50 A&P Assessment and plan (1) Chronic kidney disease: 1. Acute kidney injury Creatinine appears stable since yesterday evening. No acute indication for dialysis but at very high risk Repeat labs later today Defer ivf and hold diuretics for now but if she becomes more dyspneic will give high dose diuretics later today Strict I's and O's Hopefully dialysis can be avoided Dose medication for GFR less than 30 Avoid usual nephrotoxins 2. Chemistry High K, Will continue Kayexalate. Other chemistry appreciated, non critical 3. Shortness of breath Multifactorial, close monitoring, may need high dose diuretics On combo Abx for HCAP 4. Hemodynamics Blood pressure and pulse currently stable Thank you for consultation, as always it is a pleasure. Oleg Wooten MD Nephrology [phone] Patient seen and examined via telemedicine, with the assistance of the bedside RN > 25 min spent in evaluation and mgmt of patient Status: Acute Attestations Medical Necessity Statement*: eval for MARCELA 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 of Care Code Acute Head Of Maintenance for Chg Fwd Diagnoses Chronic kidney disease N18.9
--- NOTE | 2021-12-16 16:10 | PM.PN ---
Subjective Subjective: SR/ST on telemetry. Fall catheter was placed. c/o mild SOB Medications: Reviewed: Yes Vitals/I&O/Wt Last Vital Signs Temp 97.8 F 12/16/21 11:29 Pulse 96 12/16/21 14:09 Resp 19 H 12/16/21 14:00 BP 124/75 12/16/21 11:29 Pulse Ox 99 12/16/21 14:00 12/16/21 12/16/21 12/16/21 06:59 14:59 22:59 Intake Total 920 / 2544 1330 / 1330 Output Total 750 / 950 450 / 450 Balance 170 / 1594 880 / 880 Weight last 48 hrs Weight 147 lb 3.2 oz Weight 146 lb 9.6 oz Physical Exam Narrative: Gen: patient look older than her stated age, sitting in chair HEENT: EOMI, No pallor or icterus RS: CTAB/L xcepat at bilateral bases, No wheezes or rales CVS: S1, S2 normal, No murmur or gallop Ext: trace edema TELECOMMUNICATIONS NETWORK ENGINEER: AAOx 3, No FND Urinary Catheter Management: Fall: Cath Placed During This Visit: yes, but has since been removed by the nurse Reason for Continuing Indwelling Catheter: Acute Urinary Retention or Obstruction Urinary Catheter Date of Insertion: 12/15/21 Urinary Catheter Time of Insertion: 11:11 Date Urinary Catheter Removed: 12/10/21 Time Urinary Catheter Discontinued: 13:49 Data : 12/16/21 03:50 12/16/21 03:50 A&P Assessment and plan (1) Atherosclerosis of coronary artery of [place] heart without angina pectoris: Patient underwent cardiac catheterization and was found to have severe diffuse disease in the mid LAD and in the first diagonal branch artery. She underwent PCI of these lesions. Currently seems to be stable. Status: Acute (2) Diastolic heart failure: The heart failure seems to be compensated. Status: Acute (3) Chronic kidney disease: MARCELA on CKD 2/2 YOUSIF -lasix and fluids held -may need lasix Status: Acute (4) Adrenal insufficiency: Continue on the current management. Follow-up evaluation as scheduled. Status: Acute (5) Hypertension: Currently the blood pressure is in the normal range. Continue on the current medication. Status: Acute (6) Type 1 diabetes mellitus: Blood sugar is elevated. Management as per the primary. Status: Acute Qualifiers: Diabetes mellitus complication status: with hyperglycemia Qualified Code(s): E10.65 - Type 1 diabetes mellitus with hyperglycemia Plan Repeat BMP in evening. Appreciated nephrology input Attestations Medical Necessity Statement*: needs hospital stay for MARCELA 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 of Care Code Acute Supervisor [place] for Chg Fwd Diagnoses Atherosclerosis of coronary artery of [place] heart without angina pectoris I25.10 Diastolic heart failure I50.30 Chronic kidney disease N18.9 Adrenal insufficiency E27.40 Hypertension I10 Type 1 diabetes mellitus E10.65 Diabetes mellitus complication status: with hyperglycemia
[2021-12-16 16:59] LABS: Anion Gap 18.7 (5-19); Blood Urea Nitrogen 54 mg/dL (6-20); Calcium 7.8 mg/dL (8.5-10.5); Carbon Dioxide 23 mmol/L (22-29); Chloride 100 mmol/L (98-107); Glomerular Filtration Rate 10.6 mL/min (90-130); Glucose 117 mg/dL (65-115); Osmolality Calculated 298 mOsm/kg (285-295); Potassium 5.7 mmol/L (3.5-5.1); Sodium 136 mmol/L (136-145)
--- NOTE | 2021-12-16 17:10 | P.PN_ITS ---
Subjective Subjective: No events overnight. Overnight patient was transiently placed on BiPAP. Today morning complaining of chest slight shortness of breath. Fluid was stopped. Patient on examination on 2 L saturating 98%. Patient looking slightly anxious. Again had mild shortness of breath in the afternoon for which she was placed on BiPAP. Documented urine output since 6 AM in 12 hours is up to 1100 cc. Vitals/I&O/Wt Last Vital Signs Temp 97.6 F 12/16/21 16:00 Pulse 93 12/16/21 16:00 Resp 17 12/16/21 16:00 BP 147/91 12/16/21 16:00 Pulse Ox 97 12/16/21 16:00 12/16/21 12/16/21 12/16/21 06:59 14:59 22:59 Intake Total 920 / 2544 1330 / 1330 Output Total 750 / 950 450 / 450 Balance 170 / 1594 880 / 880 Weight last 48 hrs Weight 66.769 kg Weight 66.497 kg Physical Exam Narrative: General: AOx3, anxious RESPIRATORY: Chest is symmetrical. No intercostals muscle retraction or any accessory muscle activation. There is no chest wall tenderness. Breath sounds are heard bilaterally. No rales or rhonchi heard. No evidence of any consolidation.? Diminished intensity of breath sounds in the bases. HEART: The heart sounds are normal.? No S3 or S4.? Short systolic murmur at the base of the heart.? ABDOMEN: Soft, nontender EXTREMITIES: Trace edema Urinary Catheter Management: Fall: Cath Placed During This Visit: yes, but has since been removed by the nurse Reason for Continuing Indwelling Catheter: Acute Urinary Retention or Obstruction Urinary Catheter Date of Insertion: 12/15/21 Urinary Catheter Time of Insertion: 11:11 Date Urinary Catheter Removed: 12/10/21 Time Urinary Catheter Discontinued: 13:49 Data : 12/16/21 03:50 12/16/21 16:25 A&P Assessment and plan (1) Acute kidney injury superimposed on CKD: Status: Acute (2) Atherosclerosis of coronary artery of [place] heart without angina pectoris: Status: Acute (3) Diastolic heart failure: Status: Acute (4) Bilateral pleural effusion: Status: Acute (5) Positive cardiac stress test: Status: Acute (6) Adrenal insufficiency: Status: Acute (7) Hypertension: Status: Acute (8) Type 1 diabetes mellitus: Status: Acute Qualifiers: Diabetes mellitus complication status: with hyperglycemia Qualified Code(s): E10.65 - Type 1 diabetes mellitus with hyperglycemia Plan #Acute respiratory failure with hypoxia and hypercapnia #Vent dependent respiratory failure?resolved #Pneumonia on admission #Chronic anemia #MARCELA on CKD secondary to contrast versus cardiorenal #Hyperkalemia #Type II [place]/demand ischemia #History of stroke May 2021 #Type 1 diabetes mellitus with hyperglycemia #Adrenal insufficiency Recurrent MARCELA: Could be secondary to contrast-induced nephropathy, CRI versus fat embolism from recent angiography. Medical reconciliation done for nephrotoxic drugs. Creatinine currently stable at 4.6. Repeat BMP in evening. Patient is at high risk of dialysis. Appreciate nephrology recommendations. Hold off on losartan. Urine studies appreciated. For now hold off on any IV fluids or diuretics. Persistent hyperkalemia: Given Kayexalate in morning by nephrology. Calcium gluconate, D50 with 10 units of insulin. Shortness of breath: Could be a combination of CHF and anxiety. Monitor for fluid overload. Increase dose of Paxil. Continue with 0.5 Xanax every 8 hours as needed. Precedex if needed. Repeat CT chest to rule out consolidation. Patient did have bilateral pleural effusion on previous study. If continues to have shortness of breath or worseni ng oxygen supplementation will need to consult pulmonology for thoracentesis. Check proBNP, procalcitonin, sputum culture Extubated on 12/06. ? Continue DuoNeb every 6 hours as needed Has finished a course of antibiotics for pneumonia. Positive stress test. Underwent PCI to LAD. Goal blood pressure less than 140/90 mmHg. Stop losartan. Increase Lopressor to 75 mg twice daily. Continue aspirin, statin, Plavix. Recurrent episodes of hypoglycemia. Patient refusing insulin sliding scale. Blood sugars better controlled with Lantus 25 units twice daily, sliding scale low-dose protocol. For possible adrenal insufficiency continue with hydrocortisone 10 mg twice daily. Plan for day: Monitor BMP. Goal blood pressure less than 140/90 mmHg. Increased dose of amlodipine. Monitor urine output. Discharge planning: If creatinine remains stable within next 24 hours can plan to discharge depending on potassium levels with close follow-up as an outpatient with primary care provider. Attestations Medical Necessity Statement*: Requires further hospitalization for management of recurrent MARCELA in setting of recent angiography and PCI to LAD, Time Spent in Patient Care: Greater than 35 minutes 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 of Care Code Acute Night Auditor for Chg Fwd Diagnoses Acute kidney injury superimposed on CKD N17.9; N18.9 Atherosclerosis of coronary artery of [place] heart without angina pectoris I25.10 Diastolic heart failure I50.30 Bilateral pleural effusion J90 Positive cardiac stress test R94.39 Adrenal insufficiency E27.40 Hypertension I10 Type 1 diabetes mellitus E10.65 Diabetes mellitus complication status: with hyperglycemia
[2021-12-16] MEDS: dextrose 50% syringe 50 mL IVP (17:21)
[2021-12-16] MEDS: insulin regular-human 10 UNIT in SYRINGE 1 EACH IVP (17:22)
[2021-12-16] MEDS: calcium gluconate 0.9% NaCL 1 GM/50 ML PREMIX IV (17:24)
--- NOTE | 2021-12-16 17:48 | PC.NURSE ---
dr betancur ordered 6 units humalog for blood [id number]..after d50 given and 10 units reg insulin iv
[2021-12-16] MEDS: insulin lispro 100 unit/1 mL SUBCUT (17:56)
[2021-12-16] MEDS: temazepam 15 mg Capsule PO (20:49)
[2021-12-16] MEDS: donepezil 5 MG Tablet 10 MG PO (20:49)
--- NOTE | 2021-12-16 20:56 | PC.NURSE ---
Found patient to be diaphoretic at this time. Performed glucose check and found patient to be a 69. Patient alert and oriented sitting up in bed. Provided juice and peanut butter and crackers. Did not give insulin doses at this time. Patient reports feeling much better after eating something. Will continue to monitor.
[2021-12-16 22:00] LABS: Glucose Point of Care 69 mg/dL (70-110)
[2021-12-16 22:00] LABS: Glucose Point of Care 262 mg/dL (70-110)
[2021-12-16 22:00] LABS: Glucose Point of Care 89 mg/dL (70-110)
[2021-12-17] VITALS (17 sets, daily range): BP systolic 114–148; BP diastolic 63–82; PULSE 85–105; RESP 15–20; TEMP 36.4–36.8; O2SAT 92–100
[2021-12-17] MEDS: heparin 5,000 unit/mL INJ 1 mL 5000 UNIT SUBCUT ×2 (00:21→13:27)
[2021-12-17] MEDS: PARoxetine 20 mg Tablet 30 MG PO (04:16)
[2021-12-17] MEDS: ipratropium-albuterol 3 mL Neb INHALATION ×4 (04:20→21:47)
[2021-12-17 04:58] LABS: Alanine Aminotransferase 26 U/L (0-33); Alkaline Phosphatase 139 IU/L (35-105); Anion Gap 14.4 (5-19); Aspartate Amino Transferase 23 U/L (0-32); Blood Urea Nitrogen 49 mg/dL (6-20); Calcium 8.1 mg/dL (8.5-10.5); Carbon Dioxide 26 mmol/L (22-29); Chloride 100 mmol/L (98-107); Globulin 2.4 g/dL (1.3-4.6); Glomerular Filtration Rate 12.4 mL/min (90-130); Glucose 203 mg/dL (65-115); Magnesium 2.4 mg/dL (1.7-2.3); Osmolality Calculated 299 mOsm/kg (285-295); Potassium 5.4 mmol/L (3.5-5.1); Sodium 135 mmol/L (136-145); Total Bilirubin 0.2 mg/dL (0.15-1.2); Total Protein 5.4 g/dL (6.6-8.7)
[2021-12-17 05:15] LABS: Phosphorus 7.6 mg/dL (2.5-4.5)
--- NOTE | 2021-12-17 07:22 | PM.PN ---
Subjective Subjective: SR/ST on telemetry. c/o mild SOB and orthopnea UO-3.4 L, -900 ml Medications: Reviewed: Yes Medication Review Details: Current Medications Acetaminophen (Acetaminophen 325 Mg Tablet) 650 mg PO Q6H PRN PRN Reason: MILD PAIN Last Admin: 12/15/21 17:43 Dose: 650 mg Documented by: Al Hydrox/Mg Hydrox/Simethicone (Gezm-Kqq-Ubapzypld-Erin 30 Ml Udc) 30 ml PO Q15M PRN PRN Reason: INDIGESTION Albuterol/Ipratropium (Ipratropium-Albuterol 3 Ml Neb) 3 ml INHALATION Q6H [facility] Last Admin: 12/17/21 14:42 Dose: 3 ml Documented by: Alprazolam (Alprazolam 0.5 Mg Tablet) 0.5 mg PO TID PRN PRN Reason: ANXIETY Last Admin: 12/17/21 08:21 Dose: 0.5 mg Documented by: Amlodipine Besylate (Amlodipine 5 Mg Tablet) 5 mg PO DAILY [facility] Last Admin: 12/17/21 08:21 Dose: 5 mg Documented by: Aspirin (Aspirin 81 Mg Ec Tablet) 81 mg PO DAILY [facility] Last Admin: 12/17/21 08:21 Dose: 81 mg Documented by: Clopidogrel Bisulfate (Clopidogrel 75 Mg Tablet) 75 mg PO DAILY [facility] Last Admin: 12/17/21 08:21 Dose: 75 mg Documented by: Donepezil HCl (Donepezil 5 Mg Tablet) 10 mg PO BEDTIME [facility] Last Admin: 12/16/21 20:49 Dose: 10 mg Documented by: Glucagon (Glucagon 1 Mg/Ml Inj 1 Ml) 1 mg IM ONCE PRN; Protocol PRN Reason: Adult Acute Hypoglycemia Prot. Heparin Sodium (Porcine) (Heparin 5,000 Unit/Ml Inj 1 Ml) 5,000 unit SUBCUT Q12H [facility] Last Admin: 12/17/21 13:27 Dose: 5,000 unit Documented by: Hydralazine HCl (Hydralazine 20 Mg/Ml Inj 1 Ml) 10 mg IVP Q4H PRN PRN Reason: spb>180 dbp >110 Hydrocortisone (Hydrocortisone 10 Mg Tablet) 10 mg PO BID [facility] Last Admin: 12/17/21 08:21 Dose: 10 mg Documented by: Dextrose (D5w) 500 mls @ 100 mls/hr IV ONCE PRN; Protocol PRN Reason: Adult Acute Hypoglycemia Prot Ferric Sodium Gluconate 125 mg (/ Sodium Chloride) 110 mls @ 110 mls/hr IV Q24H [facility] Stop: 12/18/21 09:59 Last Infusion: 12/17/21 09:50 Dose: Infused Documented by: dexmedeTOMIDine 0.9 % NaCL (Precedex) 100 mcg in 25 mls @ 0 mls/hr IV .Q0M [facility]; Protocol Insulin Glargine (Insulin Glargine 100 Units/1 Ml) 25 unit SUBCUT BID@0900,2100 [facility] Last Admin: 12/17/21 08:26 Dose: 25 unit Documented by: Insulin Human Lispro (Insulin Lispro 100 Unit/1 Ml) 0 unit SUBCUT WM&BEDTIME [facility]; Protocol Last Admin: 12/17/21 12:45 Dose: Not Given Documented by: Magnesium Hydroxide (Magnesium Hydroxide 30 Ml Udc) 30 ml PO DAILY PRN PRN Reason: CONSTIPATION Metoclopramide HCl (Metoclopramide 5 Mg/Ml Sdv 2 Ml) 10 mg IVP Q6H PRN PRN Reason: NAUSEA AND VOMITING Last Admin: 12/05/21 16:31 Dose: 10 mg Documented by: Metoprolol Tartrate (Metoprolol Tartrate 1 Mg/1 Ml Sdv 5 Ml) 5 mg IVP Q4H PRN PRN Reason: HR more than 120 bpm, arrythmi Last Admin: 12/14/21 12:00 Dose: 5 mg Documented by: Metoprolol Tartrate (Metoprolol Tartrate 50 Mg Tablet) 75 mg PO BID@0900,2100 [facility] Last Admin: 12/17/21 08:21 Dose: 75 mg Documented by: Naloxone HCl (Naloxone 0.4 Mg/Ml Sdv) 0.1 mg IVP Q2M PRN PRN Reason: RESPIRATORY RATE < 8/MIN Nitroglycerin (Nitroglycerin 0.4 Mg Sublingual Tablet) 0.4 mg SUBLINGUAL Q5M PRN PRN Reason: CHEST PAIN Ondansetron HCl (Ondansetron 2 Mg/Ml Sdv 2 Ml) 4 mg IVP Q6H PRN PRN Reason: NAUSEA AND VOMITING Last Admin: 12/05/21 14:26 Dose: 4 mg Documented by: Pantoprazole Sodium (Pantoprazole Dr 40 Mg Tablet) 40 mg PO DAILY [facility] Last Admin: 12/17/21 08:21 Dose: 40 mg Documented by: Paroxetine HCl (Paroxetine 20 Mg Tablet) 30 mg PO QAM [facility] Last Admin: 12/17/21 04:16 Dose: 30 mg Documented by: Sodium Polystyrene Sulfonate (Sodium Polystyrene Sulfonate 15 Gm/60 Ml Btl) 15 gm PO DAILY [facility] Last Admin: 12/17/21 08:50 Dose: 15 gm Documented by: Vitals/I&O/Wt Last Vital Signs Temp 97.6 F 12/17/21 04:00 Pulse 92 12/17/21 04:24 Resp 18 12/17/21 04:00 BP 114/63 12/17/21 04:00 Pulse Ox 96 12/17/21 04:00 12/16/21 12/17/21 12/17/21 22:59 06:59 14:59 Intake Total 700.1 / 2030.1 920 / 2950.1 Output Total 1200 / 1650 1780 / 3430 Balance -499.9 / 380.1 -860 / -479.9 Weight last 48 hrs Weight 146 lb 12.8 oz Weight 147 lb 3.2 oz Physical Exam Narrative: Gen: patient look older than her stated age, sitting in chair HEENT: EOMI, No pallor or icterus RS: CTAB/L except absent at bilateral mid to basal lung bell, No wheezes or rales CVS: S1, S2 normal, No murmur or gallop Ext: trace edema DIRECTOR CREDIT RISK: AAOx 3, No FND Urinary Catheter Management: Fall: Cath Placed During This Visit: yes, but has since been removed by the nurse Reason for Continuing Indwelling Catheter: Acute Urinary Retention or Obstruction Urinary Catheter Date of Insertion: 12/15/21 Urinary Catheter Time of Insertion: 11:11 Date Urinary Catheter Removed: 12/10/21 Time Urinary Catheter Discontinued: 13:49 Data : 12/16/21 03:50 12/17/21 04:20 A&P Assessment and plan (1) Chronic kidney disease: MARCELA on CKD 2/2 YOUSIF, creatinine starting to trend down -lasix and fluids held -may need lasix in morning. Status: Acute (2) Atherosclerosis of coronary artery of [place] heart without angina pectoris: Patient underwent cardiac catheterization and was found to have severe diffuse disease in the mid LAD and in the first diagonal branch artery. She underwent PCI of these lesions. Currently seems to be stable. Status: Acute (3) Diastolic heart failure: The heart failure seems to be compensated. Status: Acute (4) Hypertension: Currently the blood pressure is in the normal range. Continue on the current medication. Status: Acute (5) Type 1 diabetes mellitus: Blood sugar is elevated. Management as per the primary. Status: Acute Qualifiers: Diabetes mellitus complication status: with hyperglycemia Qualified Code(s): E10.65 - Type 1 diabetes mellitus with hyperglycemia (6) Adrenal insufficiency: Continue on the current management. Follow-up evaluation as scheduled. 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
[2021-12-17] MEDS: amlodipine 5 mg Tablet PO (08:21)
[2021-12-17] MEDS: clopidogrel 75 mg Tablet PO (08:21)
[2021-12-17] MEDS: pantoprazole DR 40 mg Tablet PO (08:21)
[2021-12-17] MEDS: hydrocortisone 10 mg Tablet PO ×2 (08:21→17:21)
[2021-12-17] MEDS: ALPRAZolam 0.5 mg Tablet PO ×3 (08:21→22:27)
[2021-12-17] MEDS: aspirin 81 mg EC Tablet PO (08:21)
[2021-12-17] MEDS: metoprolol tartrate 50 mg Tablet 75 MG PO ×2 (08:21→20:52)
[2021-12-17] MEDS: insulin glargine 100 units/1 mL 25 UNIT SUBCUT ×2 (08:26→21:12)
[2021-12-17] MEDS: sodium polystyrene sulfonate 15 gm/60 mL Btl PO (08:50)
[2021-12-17] MEDS: ferric gluconate 125 MG in sodium chloride 0.9% (100 ml) 100 ML 110 MG IV (08:50)
--- NOTE | 2021-12-17 09:12 | PM.PN ---
Subjective Subjective: Mariana feels better today with no specific complaints. She is breathing comfortably on 2 L nasal cannula. Made a good volume of urine, nearly 3 L over the last 24 hours. No uremic symptoms. Medications: Reviewed: Yes Medication Review Details: Current Medications Acetaminophen (Acetaminophen 325 Mg Tablet) 650 mg PO Q6H PRN PRN Reason: MILD PAIN Last Admin: 12/11/21 21:14 Dose: 650 mg Documented by: Al Hydrox/Mg Hydrox/Simethicone (Heik-Pri-Lekrzlvqb-Erin 30 Ml Udc) 30 ml PO Q15M PRN PRN Reason: INDIGESTION Albuterol/Ipratropium (Ipratropium-Albuterol 3 Ml Neb) 3 ml INHALATION Q6H [facility] Last Admin: 12/14/21 08:08 Dose: 3 ml Documented by: Alprazolam (Alprazolam 0.5 Mg Tablet) 0.25 mg PO TID PRN PRN Reason: ANXIETY Amlodipine Besylate (Amlodipine 5 Mg Tablet) 2.5 mg PO DAILY [facility] Last Admin: 12/14/21 09:30 Dose: 2.5 mg Documented by: Aspirin (Aspirin 81 Mg Ec Tablet) 81 mg PO DAILY [facility] Last Admin: 12/14/21 09:30 Dose: 81 mg Documented by: Atropine Sulfate (Atropine 1 Mg/Ml Sdv 1 Ml) 0.5 mg IVP PRN PRN PRN Reason: Symptomatic bradycardia Clopidogrel Bisulfate (Clopidogrel 75 Mg Tablet) 75 mg PO DAILY [facility] Last Admin: 12/14/21 09:30 Dose: 75 mg Documented by: Furosemide (Furosemide 40 Mg Tablet) 40 mg PO DAILY@0800 [facility] Last Admin: 12/14/21 12:22 Dose: 40 mg Documented by: Glucagon (Glucagon 1 Mg/Ml Inj 1 Ml) 1 mg IM ONCE PRN; Protocol PRN Reason: Adult Acute Hypoglycemia Prot. Heparin Sodium (Porcine) (Heparin 5,000 Unit/Ml Inj 1 Ml) 5,000 unit SUBCUT Q12H [facility] Last Admin: 12/14/21 06:39 Dose: Not Given Documented by: Hydralazine HCl (Hydralazine 20 Mg/Ml Inj 1 Ml) 10 mg IVP Q4H PRN PRN Reason: spb>180 dbp >110 Hydrocortisone (Hydrocortisone 10 Mg Tablet) 10 mg PO BID [facility] Last Admin: 12/14/21 09:31 Dose: 10 mg Documented by: Dextrose (D5w) 500 mls @ 100 mls/hr IV ONCE PRN; Protocol PRN Reason: Adult Acute Hypoglycemia Prot Ferric Sodium Gluconate 125 mg (/ Sodium Chloride) 110 mls @ 110 mls/hr IV Q24H [facility] Stop: 12/18/21 09:59 Last Infusion: 12/14/21 12:07 Dose: Infused Documented by: Insulin Glargine (Insulin Glargine 100 Units/1 Ml) 14 unit SUBCUT BID@0900,2100 [facility] Last Admin: 12/14/21 09:31 Dose: Not Given Documented by: Insulin Human Lispro (Insulin Lispro 100 Unit/1 Ml) 0 unit SUBCUT WM&BEDTIME [facility]; Protocol Last Admin: 12/14/21 12:59 Dose: 14 unit Documented by: Magnesium Hydroxide (Magnesium Hydroxide 30 Ml Udc) 30 ml PO DAILY PRN PRN Reason: CONSTIPATION Metoclopramide HCl (Metoclopramide 5 Mg/Ml Sdv 2 Ml) 10 mg IVP Q6H PRN PRN Reason: NAUSEA AND VOMITING Last Admin: 12/05/21 16:31 Dose: 10 mg Documented by: Metoprolol Tartrate (Metoprolol Tartrate 50 Mg Tablet) 50 mg PO BID@0900,2100 [facility] Last Admin: 12/14/21 09:33 Dose: 50 mg Documented by: Metoprolol Tartrate (Metoprolol Tartrate 1 Mg/1 Ml Sdv 5 Ml) 5 mg IVP Q4H PRN PRN Reason: HR more than 120 bpm, arrythmi Last Admin: 12/14/21 12:00 Dose: 5 mg Documented by: Naloxone HCl (Naloxone 0.4 Mg/Ml Sdv) 0.1 mg IVP Q2M PRN PRN Reason: RESPIRATORY RATE < 8/MIN Nitroglycerin (Nitroglycerin 0.4 Mg Sublingual Tablet) 0.4 mg SUBLINGUAL Q5M PRN PRN Reason: CHEST PAIN Ondansetron HCl (Ondansetron 2 Mg/Ml Sdv 2 Ml) 4 mg IVP Q6H PRN PRN Reason: NAUSEA AND VOMITING Last Admin: 12/05/21 14:26 Dose: 4 mg Documented by: Pantoprazole Sodium (Pantoprazole Dr 40 Mg Tablet) 40 mg PO DAILY [facility] Last Admin: 12/14/21 09:30 Dose: 40 mg Documented by: Paroxetine HCl (Paroxetine 20 Mg Tablet) 20 mg PO QAM [facility] Last Admin: 12/14/21 09:30 Dose: 20 mg Documented by: Temazepam (Temazepam 15 Mg Capsule) 15 mg PO BEDTIME PRN PRN Reason: INSOMNIA Vitals/I&O/Wt Last Vital Signs Temp 98.2 F 12/17/21 07:51 Pulse 105 H 12/17/21 07:51 Resp 17 12/17/21 07:51 BP 120/67 12/17/21 07:51 Pulse Ox 92 12/17/21 07:51 12/16/21 12/17/21 12/17/21 22:59 06:59 14:59 Intake Total 700.1 / 2030.1 920 / 2950.1 Output Total 1200 / 1650 1780 / 3430 Balance -499.9 / 380.1 -860 / -479.9 Weight last 48 hrs Weight 66.587 kg Weight 66.769 kg Physical Exam Narrative: Constitutional: Awake, comfortable HEENT: Wet mucosa, no jvp, non icteric Lungs: Bilaterally clear without discernible wheeze, rales in all lung zones CVS: S1 S2, no murmurs Abdo: Soft, BS ok Ext 4: Minimal edema, peripheral perfusion with no cyanosis Neurological: Grossly non-focal Urinary Catheter Management: Fall: Cath Placed During This Visit: yes, but has since been removed by the nurse Reason for Continuing Indwelling Catheter: Acute Urinary Retention or Obstruction Urinary Catheter Date of Insertion: 12/15/21 Urinary Catheter Time of Insertion: 11:11 Date Urinary Catheter Removed: 12/10/21 Time Urinary Catheter Discontinued: 13:49 Data : 12/16/21 03:50 12/17/21 04:20 A&P Assessment and plan (1) Chronic kidney disease: 1. Acute kidney injury Creatinine now coming down, excellent news No acute indication for dialysis Strict I's and O's Hopefully dialysis can be avoided Dose medication for GFR less than 30 Avoid usual nephrotoxins 2. Chemistry High K but better, Will continue Kayexalate today, likely DC in the am Other chemistry appreciated, non critical 3. Shortness of breath Multifactorial, close monitoring, may need high dose diuretics On combo Abx for HCAP Pleural effusions noted 4. Hemodynamics Blood pressure and pulse currently stable 5. Dispo Creatinine coming down now, likely DC in next 24-48hrs Thank you for consultation, as always it is a pleasure. 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
[2021-12-17 09:17] LABS: Glucose Point of Care 213 mg/dL (70-110)
[2021-12-17 09:17] LABS: Glucose Point of Care 154 mg/dL (70-110)
[2021-12-17 11:54] LABS: Glucose Point of Care 137 mg/dL (70-110)
--- NOTE | 2021-12-17 14:11 | P.PN_ITS ---
Subjective Subjective: No new complaints overnight. Patient has remained hemodynamically stable. Currently on 2 to 3 L saturating 98%. Did not have any episodes of anxiety yesterday. Denies any nausea, vomiting, headache. Urine output almost 3 L yesterday. Medications: Reviewed: Yes Vitals/I&O/Wt Last Vital Signs Temp 98.3 F 12/17/21 12:00 Pulse 97 12/17/21 12:00 Resp 17 12/17/21 12:00 BP 129/77 12/17/21 12:00 Pulse Ox 98 12/17/21 12:00 12/16/21 12/17/21 12/17/21 22:59 06:59 14:59 Intake Total 700.1 / 2030.1 920 / 2950.1 350 / 350 Output Total 1200 / 1650 1780 / 3430 Balance -499.9 / 380.1 -860 / -479.9 350 / 350 Weight last 48 hrs Weight 66.587 kg Weight 66.769 kg Physical Exam Narrative: General: AOx3, anxious RESPIRATORY: Chest is symmetrical. No intercostals muscle retraction or any accessory muscle activation. There is no chest wall tenderness. Breath sounds are heard bilaterally. No rales or rhonchi heard. No evidence of any consol idation.? Diminished intensity of breath sounds in the bases. HEART: The heart sounds are normal.? No S3 or S4.? Short systolic murmur at the base of the heart.? ABDOMEN: Soft, nontender EXTREMITIES: Trace edema Urinary Catheter Management: Fall: Cath Placed During This Visit: yes, but has since been removed by the nurse Reason for Continuing Indwelling Catheter: Acute Urinary Retention or Obstruction Urinary Catheter Date of Insertion: 12/15/21 Urinary Catheter Time of Insertion: 11:11 Date Urinary Catheter Removed: 12/10/21 Time Urinary Catheter Discontinued: 13:49 Data : 12/16/21 03:50 12/17/21 04:20 A&P Assessment and plan (1) Acute kidney injury superimposed on CKD: Status: Acute (2) Atherosclerosis of coronary artery of [place] heart without angina pectoris: Status: Acute (3) Diastolic heart failure: Status: Acute (4) Bilateral pleural effusion: Status: Acute (5) Positive cardiac stress test: Status: Acute (6) Adrenal insufficiency: Status: Acute (7) Hypertension: Status: Acute (8) Type 1 diabetes mellitus: Status: Acute Qualifiers: Diabetes mellitus complication status: with hyperglycemia Qualified Code(s): E10.65 - Type 1 diabetes mellitus with hyperglycemia Plan #Acute respiratory failure with hypoxia and hypercapnia #Vent dependent respiratory failure?resolved #Pneumonia on admission #Chronic anemia #MARCELA on CKD secondary to contrast versus cardiorenal #Hyperkalemia #Type II [place]/demand ischemia #History of stroke May 2021 #Type 1 diabetes mellitus with hyperglycemia #Adrenal insufficiency Recurrent MARCELA: Could be secondary to contrast-induced nephropathy, CRI versus fat embolism from recent angiography. Medical reconciliation done for nephrotoxic drugs. Creatinine currently stable at 4.6. Repeat BMP in evening. Patient is at high risk of dialysis. Appreciate nephrology recommendations. Hold off on losartan. Urine studies appreciated. For now hold off on any IV fluids or diuretics. Persistent hyperkalemia: Given Kayexalate in morning by nephrology. Calcium gluconate, D50 with 10 units of insulin. Shortness of breath: Could be a combination of CHF and anxiety. Monitor for fluid overload. Increase dose of Paxil. Continue with 0.5 Xanax every 8 hours as needed. Precedex if needed. Repeat CT chest to rule out consolidation. Patient did have bilateral pleural effusion on previous study. If continues to have shortness of breath or worsening oxygen supplementation will need to consult pulmonology for thoracentesis. Check proBNP, procalcitonin, sputum culture Extubated on 12/06. ? Continue DuoNeb every 6 hours as needed Has finished a course of antibiotics for pneumonia. Positive stress test. Underwent PCI to LAD. Goal blood pressure less than 140/90 mmHg. Stop losartan. Increase Lopressor to 75 mg twice daily. Continue aspirin, statin, Plavix. Recurrent episodes of hypoglycemia. Patient refusing insulin sliding scale. Blood sugars better controlled with Lantus 25 units twice daily, sliding scale low-dose protocol. For possible adrenal insufficiency continue with hydrocortisone 10 mg twice daily. Plan for day: Monitor urine output, renal functions. PT/OT evaluation. Discharge planning: If creatinine remains stable within next 24 hours can plan to discharge depending on potassium levels with close follow-up as an outpatient with primary care provider. Attestations Medical Necessity Statement*: Requires further hospitalization secondary to MARCELA, persistent hyperkalemia while kidney functions stabilize Time Spent in Patient Care: 16 - 35 minutes 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 of Care Code Acute Groundskeeping Maintenance for Chg Fwd Diagnoses Acute kidney injury superimposed on CKD N17.9; N18.9 Atherosclerosis of coronary artery of [place] heart without angina pectoris I25.10 Diastolic heart failure I50.30 Bilateral pleural effusion J90 Positive cardiac stress test R94.39 Adrenal insufficiency E27.40 Hypertension I10 Type 1 diabetes mellitus E10.65 Diabetes mellitus complication status: with hyperglycemia
[2021-12-17 17:28] LABS: Glucose Point of Care 282 mg/dL (70-110)
[2021-12-17] MEDS: insulin lispro 100 unit/1 mL SUBCUT (18:12)
[2021-12-17] MEDS: donepezil 5 MG Tablet 10 MG PO (20:51)
[2021-12-18] VITALS (12 sets, daily range): BP systolic 120–163; BP diastolic 68–85; PULSE 86–99; RESP 12–18; TEMP 36.3–36.9; O2SAT 90–100
[2021-12-18] MEDS: heparin 5,000 unit/mL INJ 1 mL 5000 UNIT SUBCUT (01:26)
[2021-12-18] MEDS: ipratropium-albuterol 3 mL Neb INHALATION ×3 (03:40→14:01)
[2021-12-18 04:42] LABS: Basophils % 0.3 %; Eosinophils # 0.1 10^3/uL (0.0-0.8); Eosinophils % 1.6 %; Hematocrit 23.7 % (37.0-47.0); Hemoglobin 7.8 g/dL (11.5-15.3); Lymphocytes # 1.5 10^3/uL (0.8-4.8); Lymphocytes % 21.4 %; Mean Corpuscular HGB Conc 32.9 g/dL (30.0-36.0); Mean Corpuscular Hemoglobin 28.6 pg (28.0-34.0); Mean Corpuscular Volume 86.8 fl (81-99); Mean Platelet Volume 9.8 fL (7.4-10.4); Monocytes # 0.6 10^3/uL (0.2-0.9); Monocytes % 8.6 %; Neutrophils # 4.71 10^3/uL (1.8-7.7); Neutrophils % 67.1 %; Nucleated Red Blood Cells % 0 %; Platelet Count 192 10^3/cmm (130-400); Red Blood Count 2.73 10^6/uL (4.1-5.3)
[2021-12-18 05:02] LABS: Alanine Aminotransferase 19 U/L (0-33); Albumin Level 2.8 g/dL (3.5-5.2); Alkaline Phosphatase 126 IU/L (35-105); Anion Gap 13.5 (5-19); Aspartate Amino Transferase 12 U/L (0-32); Blood Urea Nitrogen 40 mg/dL (6-20); Calcium 7.7 mg/dL (8.5-10.5); Carbon Dioxide 25 mmol/L (22-29); Chloride 108 mmol/L (98-107); Globulin 2.5 g/dL (1.3-4.6); Glucose 47 mg/dL (65-115); Osmolality Calculated 301 mOsm/kg (285-295); Potassium 4.5 mmol/L (3.5-5.1); Sodium 142 mmol/L (136-145); Total Bilirubin 0.2 mg/dL (0.15-1.2); Total Protein 5.3 g/dL (6.6-8.7)
--- NOTE | 2021-12-18 05:18 | PC.NURSE ---
urine smelled like rotten broccoli
[2021-12-18] MEDS: PARoxetine 20 mg Tablet 30 MG PO (05:25)
[2021-12-18 06:55] LABS: Glucose Point of Care 241 mg/dL (70-110)
[2021-12-18 06:55] LABS: Glucose Point of Care 81 mg/dL (70-110)
[2021-12-18] MEDS: hydrocortisone 10 mg Tablet PO (08:14)
[2021-12-18] MEDS: pantoprazole DR 40 mg Tablet PO (08:14)
[2021-12-18] MEDS: sodium polystyrene sulfonate 15 gm/60 mL Btl PO (08:14)
[2021-12-18] MEDS: aspirin 81 mg EC Tablet PO (08:14)
[2021-12-18] MEDS: amlodipine 5 mg Tablet PO (08:14)
[2021-12-18] MEDS: clopidogrel 75 mg Tablet PO (08:14)
[2021-12-18] MEDS: metoprolol tartrate 50 mg Tablet 75 MG PO (08:17)
[2021-12-18] MEDS: ferric gluconate 125 MG in sodium chloride 0.9% (100 ml) 100 ML 110 MG IV (08:38)
[2021-12-18] MEDS: ALPRAZolam 0.5 mg Tablet PO (08:38)
--- NOTE | 2021-12-18 08:50 | P.PN_ITS ---
Subjective Subjective: Mariana feels well today with no specific complaints. No chest pain, shortness of breath. No extremity edema. Making a good volume of urine. Medications: Reviewed: Yes Medication Review Details: Current Medications Acetaminophen (Acetaminophen 325 Mg Tablet) 650 mg PO Q6H PRN PRN Reason: MILD PAIN Last Admin: 12/15/21 17:43 Dose: 650 mg Documented by: Al Hydrox/Mg Hydrox/Simethicone (Uvpe-Uzv-Oramkrheg-Erin 30 Ml Udc) 30 ml PO Q15M PRN PRN Reason: INDIGESTION Albuterol/Ipratropium (Ipratropium-Albuterol 3 Ml Neb) 3 ml INHALATION Q6H [facility] Last Admin: 12/17/21 14:42 Dose: 3 ml Documented by: Alprazolam (Alprazolam 0.5 Mg Tablet) 0.5 mg PO TID PRN PRN Reason: ANXIETY Last Admin: 12/17/21 08:21 Dose: 0.5 mg Documented by: Amlodipine Besylate (Amlodipine 5 Mg Tablet) 5 mg PO DAILY [facility] Last Admin: 12/17/21 08:21 Dose: 5 mg Documented by: Aspirin (Aspirin 81 Mg Ec Tablet) 81 mg PO DAILY [facility] Last Admin: 12/17/21 08:21 Dose: 81 mg Documented by: Clopidogrel Bisulfate (Clopidogrel 75 Mg Tablet) 75 mg PO DAILY [facility] Last Admin: 12/17/21 08:21 Dose: 75 mg Documented by: Donepezil HCl (Donepezil 5 Mg Tablet) 10 mg PO BEDTIME [facility] Last Admin: 12/16/21 20:49 Dose: 10 mg Documented by: Glucagon (Glucagon 1 Mg/Ml Inj 1 Ml) 1 mg IM ONCE PRN; Protocol PRN Reason: Adult Acute Hypoglycemia Prot. Heparin Sodium (Porcine) (Heparin 5,000 Unit/Ml Inj 1 Ml) 5,000 unit SUBCUT Q12H [facility] Last Admin: 12/17/21 13:27 Dose: 5,000 unit Documented by: Hydralazine HCl (Hydralazine 20 Mg/Ml Inj 1 Ml) 10 mg IVP Q4H PRN PRN Reason: spb>180 dbp >110 Hydrocortisone (Hydrocortisone 10 Mg Tablet) 10 mg PO BID [facility] Last Admin: 12/17/21 08:21 Dose: 10 mg Documented by: Dextrose (D5w) 500 mls @ 100 mls/hr IV ONCE PRN; Protocol PRN Reason: Adult Acute Hypoglycemia Prot Ferric Sodium Gluconate 125 mg (/ Sodium Chloride) 110 mls @ 110 mls/hr IV Q24H [facility] Stop: 12/18/21 09:59 Last Infusion: 12/17/21 09:50 Dose: Infused Documented by: dexmedeTOMIDine 0.9 % NaCL (Precedex) 100 mcg in 25 mls @ 0 mls/hr IV .Q0M [facility]; Protocol Insulin Glargine (Insulin Glargine 100 Units/1 Ml) 25 unit SUBCUT BID@0900,2100 SHARON Last Admin: 12/17/21 08:26 Dose: 25 unit Documented by: Insulin Human Lispro (Insulin Lispro 100 Unit/1 Ml) 0 unit SUBCUT WM&BEDTIME [facility]; Protocol Last Admin: 12/17/21 12:45 Dose: Not Given Documented by: Magnesium Hydroxide (Magnesium Hydroxide 30 Ml Udc) 30 ml PO DAILY PRN PRN Reason: CONSTIPATION Metoclopramide HCl (Metoclopramide 5 Mg/Ml Sdv 2 Ml) 10 mg IVP Q6H PRN PRN Reason: NAUSEA AND VOMITING Last Admin: 12/05/21 16:31 Dose: 10 mg Documented by: Metoprolol Tartrate (Metoprolol Tartrate 1 Mg/1 Ml Sdv 5 Ml) 5 mg IVP Q4H PRN PRN Reason: HR more than 120 bpm, arrythmi Last Admin: 12/14/21 12:00 Dose: 5 mg Documented by: Metoprolol Tartrate (Metoprolol Tartrate 50 Mg Tablet) 75 mg PO BID@0900,2100 S Last Admin: 12/17/21 08:21 Dose: 75 mg Documented by: Naloxone HCl (Naloxone 0.4 Mg/Ml Sdv) 0.1 mg IVP Q2M PRN PRN Reason: RESPIRATORY RATE < 8/MIN Nitroglycerin (Nitroglycerin 0.4 Mg Sublingual Tablet) 0.4 mg SUBLINGUAL Q5M PRN PRN Reason: CHEST PAIN Ondansetron HCl (Ondansetron 2 Mg/Ml Sdv 2 Ml) 4 mg IVP Q6H PRN PRN Reason: NAUSEA AND VOMITING Last Admin: 12/05/21 14:26 Dose: 4 mg Documented by: Pantoprazole Sodium (Pantoprazole Dr 40 Mg Tablet) 40 mg PO DAILY [facility] Last Admin: 12/17/21 08:21 Dose: 40 mg Documented by: Paroxetine HCl (Paroxetine 20 Mg Tablet) 30 mg PO QAM [facility] Last Admin: 12/17/21 04:16 Dose: 30 mg Documented by: Sodium Polystyrene Sulfonate (Sodium Polystyrene Sulfonate 15 Gm/60 Ml Btl) 15 gm PO DAILY [facility] Last Admin: 12/17/21 08:50 Dose: 15 gm Documented by: Vitals/I&O/Wt Last Vital Signs Temp 97.5 F L 12/18/21 07:43 Pulse 90 12/18/21 08:37 Resp 18 12/18/21 08:33 BP 141/80 12/18/21 07:43 Pulse Ox 99 12/18/21 08:33 12/17/21 12/18/21 12/18/21 22:59 06:59 14:59 Intake Total 880 / 1470 300 / 300 Output Total 2850 / 4150 1450 / 5600 Balance -1970 / -2680 -1450 / -4130 300 / 300 Weight last 48 hrs Weight 66.224 kg Weight 66.587 kg Physical Exam Narrative: Constitutional: Awake, comfortable HEENT: Wet mucosa, no jvp, non icteric Lungs: Bilaterally clear without discernible wheeze, rales in all lung zones CVS: S1 S2, no murmurs Abdo: Soft, BS ok Ext 4: Minimal edema, peripheral perfusion with no cyanosis Neurological: Grossly non-focal Urinary Catheter Management: Fall: Cath Placed During This Visit: yes, but has since been removed by the nurse Reason for Continuing Indwelling Catheter: Accurate Measurement of Urinary Output in Critically Ill Patients Urinary Catheter Date of Insertion: 12/15/21 Urinary Catheter Time of Insertion: 11:11 Date Urinary Catheter Removed: 12/10/21 Time Urinary Catheter Discontinued: 13:49 Data : 12/18/21 04:13 12/18/21 04:13 A&P Assessment and plan (1) Chronic kidney disease: 1. Acute kidney injury Creatinine now coming down, excellent news Strict I's and O's Hopefully dialysis can be avoided Dose medication for GFR less than 30 Avoid usual nephrotoxins 2. Chemistry looks good, nabor kaneelaxasulma Other chemistry appreciated, non critical 3. Shortness of breath seems better On combo Abx for HCAP Pleural effusions noted 4. Hemodynamics Blood pressure and pulse currently stable 5. Dispo ok for DC from my own perspective Thank you for consultation, as always it is a pleasure. Oleg Wooten MD Nephrology [phone] Patient seen and examined via telemedicine, with the assistance of the bedside RN > 25 min spent in evaluation and mgmt of patient Status: Acute Attestations Medical Necessity Statement*: eval for MARCELA 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 of Care Code Acute Nursing Aide for Chg Fwd Diagnoses Chronic kidney disease N18.9
--- NOTE | 2021-12-18 11:03 | PM.DCS ---
Discharge Providers Date of Admission: 12/04/21 09:55 Date of Discharge: December 18, 2021 Attending Provider at Admission: Ab Oro MD Attending Provider at Discharge: Krupa Shaffer MD Diagnoses at Discharge Discharge Diagnosis (1) Chronic kidney disease: Status: Acute Reason for Visit Reason for Visit: SOB Hospital Course Hospital Course Patient was admitted to hospital further evaluation and management of acute hypoxic respiratory failure. She was intubated and admitted to ICU. She was started on broad-spectrum antibiotics. During hospitalization blood cultures remain negative other than 1 out of 4 bottles from admission positive for staph epi dermatitis which was thought to be secondary to contamination, sputum culture remain negative MRSA was positive. COVID-19 PCR was negative. Patient has finished a course of antibiotics for Zosyn and vancomycin. On admission patient was found to be in slight pulmonary edema along with positive troponins for which she was started on IV diuresis. Echocardiogram was done which was of poor quality but was thought to have a grossly normal LV functions. Patient continued to have borderline low blood pressures during hospitalization along with borderline hyperkalemia on admission. Cortisol level was checked which is low to 2.17 given her clinical condition. Because of concern for adrenal insufficiency she was started on hydrocortisone after which her hypotension and vomiting resolved. She was transitioned over to oral prednisone for adrenal insufficiency. Once patient was euvolemic and resolution of respiratory failure she underwent cardiac stress test on 12/12. 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 THen pt developed MARCELA and persistent hyperkalemia. She was kept a few more days under observation. Once Cr. Stablized she was discharged to snf. She has been discharged in hemodynamic stable condition advised to follow-up with her primary care provider within next 1 week, epic radiant analyst within next 10 days for further evaluation and management of adrenal insufficiency. Pt also given follow up with nephrology and cardiology outpatient. Physical Exam Narrative: General: AOx3, appears calm and ok today. no acute distress RESPIRATORY: clear to ausculation b/l with mild ronchi, improved compared to when seen last. Air entry fair. HEART: The heart sounds are normal.? No S3 or S4.? Short systolic murmur at the base of the heart.? ABDOMEN: Soft, nontender EXTREMITIES: Trace edema Urinary Catheter Management: Fall: Cath Placed During This Visit: yes, but has since been removed by the nurse Reason for Continuing Indwelling Catheter: Decision to DC Catheter Urinary Catheter Date of Insertion: 12/15/21 Urinary Catheter Time of Insertion: 11:11 Date Urinary Catheter Removed: 12/18/21 Time Urinary Catheter Discontinued: 10:58 Discharge Data Studies Completed and Pending Completed Studies During Hospitalization Category Date Time Status CT chest wo con [id number] Routine Cat Scan 12/15/21 10:[address] kidney stone [id number] Routine Cat Scan 12/08/21 11:21 Completed CTA chest [CT angio chest PE protcl [id number]] Routine Cat Scan 12/04/21 09:47 Completed SEWING TRIMMER request for service Routine Exams 12/13/21 05:26 Completed CXRP [XR chest 1V portable [id number]] Stat Exams 12/09/21 13:40 Completed Cardiac Stress Test MIBI [Sestamibi Stress Test Request Exams 12/12/21 07:00 Completed ] Routine XR chest 1V portable [id number] Routine Exams 12/05/21 07:00 Completed XR chest 1V portable [id number] Routine Exams 12/07/21 07:00 Completed XR chest 1V portable [id number] Urgent Exams 12/04/21 04:46 Completed NM nicky perf SPECT r/s* [id number] Routine Nuc Med 12/12/21 13:01 Completed CV. echo limited [id number] Routine Ultrasound 12/04/21 08:07 Completed CV. echo lmt w/w contras [id number] Routine Ultrasound 12/15/21 10:18 Completed US renal BI* [id number] Routine Ultrasound 12/06/21 06:54 Completed US venous duplex lower extremity bilat [CV venous Ultrasound 12/04/21 09:47 [place] [id number]] Routine Pending at discharge Category Date Time Status Cardiac Stress Test MIBI [Sestamibi Stress Test Request Exams 12/06/21 09:18 Stop Req ] Routine Cardiac Stress Test MIBI [Sestamibi Stress Test Request Exams 12/11/21 07:07 Stop Req ] Routine ABG FULL [Arterial Blood Gas Full] Stat Lab 12/09/21 14:04 Received Sputum Culture and Gram Stain Stat Lab 12/15/21 10:16 Uncollected Radiology Impressions Chest CTA 12/04/21 09:47 IMPRESSION: 1. No evidence of pulmonary embolus. 2. Small RIGHT greater than LEFT pleural effusions with compressive atelectasis in the lung bases. 3. Mild hazy groundglass infiltrates with interlobular septal thickening. Some of this likely due to pulmonary edema. 4. Hazy groundglass infiltrates in a perihilar distribution. Recommend correlation for pneumonia. 5. Endotracheal tube with tip above the lavon. Enteric tube with tip in the stomach. Renal Ultrasound 12/06/21 06:54 IMPRESSION: 1. Hydronephrosis of the right kidney. 2. Normal-appearing left kidney. 3. Fall catheter noted in the urinary bladder. 4. 5.2 x 5.8 x 2.8. Centimeter cystic lesion in the left adnexa. A dedicated pelvic ultrasound could be considered for further workup if thought to be clinically warranted. 5. No solid or cystic renal mass. Abdomen/Pelvis CT 12/08/21 11:21 IMPRESSION: 1. Moderate bilateral pleural effusions with basilar atelectasis. 2. Small pericardial effusion. 3. Hepatomegaly. 4. Subcutaneous edema around the abdomen consistent with anasarca. 5. No acute abnormalities are seen within the abdomen and pelvis. Chest X-Ray 12/09/21 13:40 IMPRESSION: 1. Stable left central line. 2. Continued mild right lower lung field pneumonia with increased ucbu-[id number]-husywajg left lower lung field pneumonia. Chest CT 12/15/21 10:16 IMPRESSION: No significant change when compared with 12/04/2021. Bilateral pleural effusions, lung consolidation and intrathoracic adenopathy are again identified. Laboratory Results WBC 7.0 10^3/uL (4.0-10.0) 12/18/21 04:13 RBC 2.73 10^6/uL (4.1-5.3) L 12/18/21 04:13 Hgb 7.8 g/dL (11.5-15.3) L 12/18/21 04:13 Hct 23.7 % (37.0-47.0) L 12/18/21 04:13 MCV 86.8 fl (81-99) 12/18/21 04:13 MCH 28.6 pg (28.0-34.0) 12/18/21 04:13 MCHC 32.9 g/dL (30.0-36.0) 12/18/21 04:13 RDW 15.0 % (12.1-15.1) 12/18/21 04:13 Plt Count 192 10^3/cmm (130-400) 12/18/21 04:13 MPV 9.8 fL (7.4-10.4) 12/18/21 04:13 Neut % (Auto) 67.1 % 12/18/21 04:13 Lymph % (Auto) 21.4 % 12/18/21 04:13 Donley % (Auto) 8.6 % 12/18/21 04:13 Eos % (Auto) 1.6 % 12/18/21 04:13 Baso % (Auto) 0.3 % 12/18/21 04:13 Neut # (Auto) 4.71 10^3/uL (1.8-7.7) 12/18/21 04:13 Lymph # (Auto) 1.5 10^3/uL (0.8-4.8) 12/18/21 04:13 Donley # (Auto) 0.6 10^3/uL (0.2-0.9) 12/18/21 04:13 Eos # (Auto) 0.1 10^3/uL (0.0-0.8) 12/18/21 04:13 Baso # (Auto) 0.0 10^3/uL (0.0-0.1) 12/18/21 04:13 Nucleated RBC % (auto) 0 % 12/18/21 04:13 Nucleated RBCs # 0.0 /100WBC 12/18/21 04:13 APTT 49.0 SECONDS (23.9-36.7) H D 12/13/21 13:59 D-Dimer 2.91 ug/mIFEU (0-0.59) H 12/04/21 08:53 Specimen Type Arterial 12/05/21 16:17 Sample Site Radial, left 12/05/21 16:17 ABG pH 7.26 (7.35-7.45) L 12/05/21 16:17 ABG pCO2 54.3 mmHg (35-45) H 12/05/21 16:17 ABG pO2 73.9 mmHg (80.0-100.0) L 12/05/21 16:17 ABG HCO3 24.6 mmol/L (22-26) 12/05/21 16:17 ABG O2 Saturation 88.5 12/05/21 13:41 ABG Base Excess -2.7 mmol/L (-2.0-2.0) L 12/05/21 16:17 Kaushik Test Pos 12/05/21 16:17 A-a O2 Gradient 11.7 mmHg (5-10) H 12/05/21 13:41 Hematocrit 28.8 % (37-47) L 12/05/21 16:17 Hgb O2 Saturation 86.9 % (95-100) L 12/05/21 13:41 Carboxyhemoglobin 1.0 %THgb (0.4-20.1) 12/05/21 13:41 Methemoglobin 0.8 % (0.4-1.5) 12/05/21 13:41 Total Hemoglobin 9.9 g/dL (12-16) L 12/05/21 13:41 Sodium 138.0 mmol/L (131-143) 12/05/21 13:41 Potassium 4.9 mmol/L (3.5-5.0) 12/05/21 13:41 Glucose 157.0 mg/dL (70-115) H 12/05/21 13:41 Ionized Calcium 1.2 mmol/L (1.1-1.4) 12/05/21 13:41 O2 Delivery Device Nc 12/05/21 16:17 O2 Liters/Min 4.0 % 12/05/21 16:17 FiO2 36.0 % 12/05/21 16:17 Tidal Volume 0.40 12/05/21 04:00 PEEP 5.0 cmH20 12/05/21 04:00 Pharmaceutical Operator ID Cak 12/05/21 16:17 Sodium 142 mmol/L (136-145) 12/18/21 04:13 Potassium 4.5 mmol/L (3.5-5.1) 12/18/21 04:13 Chloride 108 mmol/L (98-107) H 12/18/21 04:13 Carbon Dioxide 25 mmol/L (22-29) 12/18/21 04:13 Anion Gap 13.5 (5-19) 12/18/21 04:13 BUN 40 mg/dL (6-20) H 12/18/21 04:13 Creatinine 3.2 mg/dL (0.5-0.9) H 12/18/21 04:13 GFR Calculation 16.0 mL/min (90-130) L 12/18/21 04:13 Glucose 47 mg/dL (65-115) L 12/18/21 04:13 POC Glucose 81 mg/dL (70-110) 12/18/21 06:32 Calculated Osmolality 301 mOsm/kg (285-295) H 12/18/21 04:13 Lactic Acid 0.6 mmol/L (0.5-2.2) 12/04/21 04:40 Uric Acid 5.8 mg/dL (2.4-5.7) H 12/06/21 02:33 Calcium 7.7 mg/dL (8.5-10.5) L 12/18/21 04:13 Phosphorus 7.6 mg/dL (2.5-4.5) H 12/17/21 04:20 Magnesium 2.4 mg/dL (1.7-2.3) H 12/17/21 04:20 Iron 51 ug/dL (37-145) 12/08/21 04:10 TIBC 218 mcg/dl 12/08/21 04:10 % Saturation 23.3 % (20-50) 12/08/21 04:10 Unsat Iron Binding 167 ug/dL (112-347) 12/08/21 04:10 Ferritin 101 ng/mL (15-150) 12/08/21 04:10 Total Bilirubin 0.2 mg/dL (0.15-1.2) 12/18/21 04:13 AST 12 U/L (0-32) 12/18/21 04:13 ALT 19 U/L (0-33) 12/18/21 04:13 Alkaline Phosphatase 126 IU/L (35-105) H 12/18/21 04:13 Creatine Kinase 123 U/L (26-192) 12/07/21 08:41 Troponin T Gen 5 ng/L 235 ng/L (0-10) H* 12/15/21 11:08 Troponin T Baseline 191 ng/L (0-10) H* 12/14/21 11:53 Troponin T 120 Minute 179.4 ng/L (0-10) H 12/14/21 13:43 Delta Troponin T -11.6 ABS# (0-10) L 12/14/21 13:43 Troponin T Hi Sens 6Hr 205.0 ng/L (0-10) H 12/14/21 16:55 Troponin T Hi Sens 6Hr Delta 14.0 ng/L (0-12) H* 12/14/21 16:55 C-Reactive Protein 4.9 mg/L (0.0-4.9) 12/04/21 04:40 NT-Pro-B Natriuret Pep 24554 pg/mL (0-125) H 12/15/21 11:08 Total Protein 5.3 g/dL (6.6-8.7) L 12/18/21 04:13 Albumin 2.8 g/dL (3.5-5.2) L 12/18/21 04:13 Globulin 2.5 g/dL (1.3-4.6) 12/18/21 04:13 Procalcitonin 0.26 ng/mL (0-0.5) 12/15/21 11:08 TSH 3.05 uIU/mL (0.27-4.20) 12/05/21 03:36 Ser , Semi-Qnt 0.50 mIU/mL 12/07/21 03:03 Random Cortisol 2.17 ug/dL (2.47-19.5) L 12/05/21 03:36 Urine Color Yellow (Yellow) 12/14/21 11:00 Urine Appearance Clear (CLEAR) 12/14/21 11:00 Urine pH 6.5 (5-7) 12/14/21 11:00 Ur Specific [place] 1.005 (1.005-1.030) 12/14/21 11:00 Urine Protein 3+ (Negative) H 12/14/21 11:00 Urine Glucose (UA) 2+ (Normal) H 12/14/21 11:00 Urine Ketones Negative (Negative) 12/14/21 11:00 Urine Blood Neg (Negative) 12/14/21 11:00 Urine Nitrate Negative (Negative) 12/14/21 11:00 Urine Bilirubin Neg (Negative) 12/14/21 11:00 Urine Urobilinogen Norm mg/dL (Negative) 12/14/21 11:00 Ur Leukocyte Esterase Negative (Negative) 12/14/21 11:00 Urine RBC 0-4 /hpf (0-2) H 12/14/21 11:00 Urine WBC 0-4 /hpf (0-5) H 12/14/21 11:00 Ur Squamous Epith Cells 5-10 /hpf (0-5) H 12/14/21 11:00 Ur Renal Epithelial Cell 5 /hpf 12/14/21 11:00 Amorphous Sediment Not Reportable 12/14/21 11:00 Urine Bacteria None /hpf (NONE) 12/14/21 11:00 Hyaline Casts 0-4 /lpf H 12/04/21 04:58 Coarse Granular Casts 0-4 /lpf H 12/04/21 04:58 Urine Mucus Trace /hpf 12/06/21 12:27 U Random Total Protein 331 mg/dL 12/07/21 11:00 Ur Random Sodium 23 mmol/L 12/14/21 11:00 Ur Random Potassium 32 mmol/L 12/14/21 11:00 Ur Random Chloride 20 mmol/L 12/14/21 11:00 Ur Random Urea Nitrogn 487 mg/dL 12/06/21 12:27 Urine Creatinine 26 mg/dL (28-217) L 12/14/21 11:00 Coronavirus 229E (PCR) Not detected (NOT DETECT) 12/04/21 06:30 SARS-CoV-2 (PCR) Not detected (NOT DETECT) 12/04/21 06:30 Vitals Last Vital Signs Temp 97.5 F L 12/18/21 07:43 Pulse 90 12/18/21 08:37 Resp 18 12/18/21 08:33 BP 141/80 12/18/21 07:43 Pulse Ox 99 12/18/21 08:33 Discharge Plan Discharge Patient Disposition: Xfer SNF Condition: Stable Prescriptions: New furosemide 40 mg Tablet 40 mg PO DAILY@0800 Qty: 30 0RF hydrocortisone 10 mg Tablet 10 mg PO BID Qty: 60 0RF ferrous gluconate 324 mg (37.5 mg iron) Tablet 324 mg PO BIDWM Qty: 60 0RF donepezil 5 mg Tablet 10 mg PO BEDTIME 30 Days Qty: 30 0RF amlodipine 5 mg Tablet 5 mg PO DAILY 30 Days Qty: 30 0RF alprazolam 0.5 mg Tablet 0.5 mg PO TID PRN (Reason: Anxiety) 7 Days Qty: 10 0RF paroxetine HCl 20 mg Tablet 30 mg PO QAM 30 Days Qty: 45 0RF metoprolol tartrate 50 mg Tablet 75 mg PO BID@0900,2100 30 Days Qty: 90 0RF Continued pantoprazole 40 mg tablet,delayed release (DR/EC) 40 mg PO DAILY@08 0RF Systane Balance 0.6 % drops 1 drop ophthalmic (eye) Q12H PRN (Reason: Dry Eyes) 0RF sennosides-docusate sodium [Senna-S] 8.6-50 mg Tablet 1 tab-cap PO Q12H PRN (Reason: Constipation) 0RF magnesium hydroxide [Milk of Magnesia] 400 mg/5 mL Suspension 30 ml PO DAILY PRN (Reason: Constipation) 0RF insulin aspart U-100 [Novolog Flexpen U-100 Insulin] 100 unit/mL (3 mL) Insulin Pen See Rx Instructions .ROUTE .COMPLEX 0RF Rx Instructions: 8 units with meals-hold if less than 110 and inject per sliding scale 150-199=0 units 200-249=2 units 250-299=3 units 300-349=4 units 350-399=5 units 400-449=0 notify Tylenol 325 mg Tablet 650 mg PO Q6H PRN (Reason: Pain) 0RF Miralax 17 gram Powder In Packet 17 g PO DAILY PRN (Reason: Constipation) 0RF loperamide 2 mg Tablet 2 mg PO PRN MDD 4 tabs PRN (Reason: Diarrhea) 0RF clopidogrel 75 mg Tablet 75 mg PO DAILY@08 0RF aspirin 81 mg Tablet,Delayed Release (Dr/Ec) 81 mg PO DAILY@08 0RF bisacodyl 10 mg Suppository 10 mg NE DAILY PRN (Reason: Constipation) 0RF ferrous sulfate 325 mg (65 mg iron) Tablet 325 mg PO BID@08,20 0RF Enema 19-7 gram/118 mL Enema 118 ml NE DAILY PRN (Reason: Constipation) 0RF ondansetron 4 mg Tablet,Disintegrating 4 mg PO Q8H PRN (Reason: Nausea And Vomiting) 0RF mirtazapine 7.5 mg Tablet 7.5 mg PO BEDTIME@20 0RF Biofreeze (menthol) 4 % Gel 1 applic TOPICAL Q4H PRN (Reason: Pain) 0RF Changed atorvastatin 80 mg Tablet 40 mg PO DAILY@08 Qty: 0 0RF Lantus U-100 Insulin 100 unit/mL Solution 25 unit SUBCUT BID 30 Days Qty: 3 0RF Discontinued paroxetine HCl [Paxil] 20 mg tablet 20 mg PO DAILY@08 0RF metoprolol tartrate 25 mg tablet 12.5 mg PO BID@08,20 0RF Rx Instructions: hold if sbp <100, dbp <60 amlodipine 2.5 mg Tablet 2.5 mg PO DAILY@08 0RF alprazolam 0.25 mg tablet 0.25 mg PO Q24H PRN (Reason: Anxiety) 0RF Discharge Orders: Discharge Order (Routine); Ordered 12/18/21 Ordered By: Krupa Shaffer Referrals: Aly Damian MD [Referring] - 4-7 days Sonia Ontiveros FNP [Nurse Practitioner] - 01/02/22 10:30 am Ruby Velazquez MD [Physician] - 1 week (Adrenal insufficiency FAXED FOR APPOINTMENT THEY WILL CALL YOU) Angelic Ding MD [Physician] - 02/02/22 11:15 am Discharge Diet: Cardiac and Diabetic Discharge Activity: Resume usual activity and Increase activity as tolerated Patient Instructions: Metoprolol (By mouth), Furosemide (By mouth), Donepezil (By mouth), Opioid Safety Activity Restrictions/Additional Instructions: Please return to ER if worsening shortness of breath, chest pain, abdominal pain, blood in urine, blood in stool, lightheadedness, dizziness occurs. Please follow up with your doctors outpatient as directed on this document. Discharge Attestations Time Spent in Discharge Care*: greater than 30 min Status at Discharge: Cognitive status at discharge: cognitively intact, Behavioral status at discharge: cooperative, Functional status at discharge: other assisted ambulation, Overall status at discharge: patient is progressing back to baseline Quality Metrics Clinical Quality Measures [ No reported AMI, CVA or VTE this stay] 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 of Care Code Acute Chg FW DC note Diagnoses Chronic kidney disease N18.9
--- NOTE | 2021-12-18 11:21 | PC.CHAP ---
Pastoral Care Encounter/Spiritual Assessment Type of Contact [] Declined smoking pipe mounter visit [] Patient/Family/Request visit [] Outpatient visit [] Follow-up visit [] Physician referral [] Code/Alert [x] Routine visit [] Staff referral [] Actively dying [] Patient sleeping [] Family support [] [] Out of room [] Palliative care [] [] Receiving care in room [] Pre-surgical visit [] Trauma [] Long length of stay [] ICU visit [] Other: Relational/Emotional Strength x[] Patient feels connected with others/family/visitors/staff [] Distress [] Loneliness/isolation [] Abandonment Spirituality of Patient [x] Person of Annette [] Attends Adventism of their Annette [x] Believes in Prayer [] Reads Bible or Restorationist materials [] There are Spiritual issues to be addressed Commercial 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 Interventions [x] Prayer [x] Active listening [x] Non-anxious presence [] Spiritual/emotional support [] Crisis/trauma care [] Spiritual counseling [] Bereavement support [] Provided bereavement packet [] Provided Bible/devotional materials [] Provided toy/stuffed animal, coloring book to patient or family member [] Provided Communion [] Anointing/[place] [] Salvation [x] Completed spiritual assessment [] Other: Impact on Illness or Injury [] Angry [] Fearful [] Anxious [] Often cries [] Exhaustion [] Unable to work [] Unable to attend gnosticism [] Unable to walk/stand [] Unable to read [] Unable to drive [] Unable to eat/drink [] Unable to sleep [] Unable to be with family [] Patient intubated [] Other: Summary Time spent with patient 10 min
[2021-12-18 11:30] LABS: Glucose Point of Care 163 mg/dL (70-110)
[2021-12-18] MEDS: insulin lispro 100 unit/1 mL SUBCUT (11:32)
--- NOTE | 2021-12-18 14:06 | PC.NURSE ---
Removed patient IJ placed occlusive pressure dressing while holding pressure per protocol. Patient tolerated well. No events. Attempted to call report to [facility] it rang until busy signal took place. Will attempt another time. Patient left van.
== END 2021-12-18 14:27 | disposition skilled nursing facility (03) | DRG 981 ==
LOC: ER 07:28 → ICU 14:59 → MEDSURG 12-08 21:33 → CSU 12-13 07:20 → MEDSURG 12-13 18:45
PROVIDERS: Internal Medicine; Internal Medicine Cardiovascular Disease; Internal Medicine Nephrology; Student in an Organized Health Care Education/Training Program; Admitting Provider Internal Medicine; Emergency Provider Emergency Medicine; Visit Provider Internal Medicine
PROC: 027136Z Dilation of Coronary Artery, Two Arteries with Three Drug-eluting Intraluminal Devices, Percutaneous Approach (ICD-10-PCS; principal; 2021-12-13 06:00)
DX: J96.02 Acute respiratory failure with hypercapnia (principal); I21.A1 Myocardial infarction type 2; J18.9 Pneumonia, unspecified organism; I50.33 Acute on chronic diastolic (congestive) heart failure; I47.2 Ventricular tachycardia; F33.2 Major depressive disorder, recurrent severe without psychotic features; E27.40 Unspecified adrenocortical insufficiency; N17.9 Acute kidney failure, unspecified; I13.0 Hypertensive heart and chronic kidney disease with heart failure and stage 1 through stage 4 chronic kidney disease, or unspecified chronic kidney disease; J44.0 Chronic obstructive pulmonary disease with (acute) lower respiratory infection; J96.01 Acute respiratory failure with hypoxia; I25.10 Atherosclerotic heart disease of native coronary artery without angina pectoris; E10.22 Type 1 diabetes mellitus with diabetic chronic kidney disease; N18.30 Chronic kidney disease, stage 3 unspecified; E10.65 Type 1 diabetes mellitus with hyperglycemia; E10.21 Type 1 diabetes mellitus with diabetic nephropathy; Z86.14 Personal history of Methicillin resistant Staphylococcus aureus infection; F17.210 Nicotine dependence, cigarettes, uncomplicated; Z86.73 Personal history of transient ischemic attack (TIA), and cerebral infarction without residual deficits; Z87.01 Personal history of pneumonia (recurrent); Z79.82 Long term (current) use of aspirin; Z79.02 Long term (current) use of antithrombotics/antiplatelets; B95.62 Methicillin resistant Staphylococcus aureus infection as the cause of diseases classified elsewhere; N14.1 Nephropathy induced by other drugs, medicaments and biological substances; T50.8X5A Adverse effect of diagnostic agents, initial encounter; I95.9 Hypotension, unspecified; E87.5 Hyperkalemia; D63.1 Anemia in chronic kidney disease
CPT/HCPCS: 31500; 36415; 36416; 36556; 36592; 36600; 51702; 71045; 71250; 71275; 74176; 76770; 78452; 80048; 80051; 80053; 81001; 82330; 82436; 82533; 82550; 82570; 82575; 82728; 82803; 82805; 82962; 83540; 83550; 83605; 83735; 83880; 84100; 84133; 84145; 84156; 84300; 84443; 84484; 84540; 84550; 84702; 85025; 85347; 85378; 85730; 86140; 87040; 87070; 87150; 87205; 87635; 87641; 93005; 93017; 93308; 93452; 93458; 93571; 93970; 94002; 94003; 94640; 94660; 94762; 94799; 96360; 96361; 96365; 96366; 96367; 96368; 96372; 96375; 97110; 97116; 97161; 99152; 99153; 99291; 99292; A4570; A9500; C1725; C1751; C1769; C1874; C1887; C1894; C8924; C9113; C9600; J0610; J1644; J1720; J1815 ×2; J1940; J2020; J2060; J2250; J2405; J2543; J2704; J2765; J2785; J2916; J3010; J3370; J3475; J3490; J7030; J7050; J8499; Q0163; Q3014; Q9956; Q9967

== ENCOUNTER → 2022-03-02 11:11 | Outpatient (BNVA) | payer MEDICAID, SELFPAY | PROVIDERS: PCP Internal Medicine; Visit Provider Internal Medicine Cardiovascular Disease | DX: I13.0 Hypertensive heart and chronic kidney disease with heart failure and stage 1 through stage 4 chronic kidney disease, or unspecified chronic kidney disease (principal); E10.22 Type 1 diabetes mellitus with diabetic chronic kidney disease; N18.9 Chronic kidney disease, unspecified; I50.32 Chronic diastolic (congestive) heart failure; Z87.891 Personal history of nicotine dependence; Z79.4 Long term (current) use of insulin; I25.10 Atherosclerotic heart disease of native coronary artery without angina pectoris; E10.65 Type 1 diabetes mellitus with hyperglycemia; E27.40 Unspecified adrenocortical insufficiency; Z86.73 Personal history of transient ischemic attack (TIA), and cerebral infarction without residual deficits | CPT/HCPCS: 99214 ==

== ENCOUNTER → 2022-06-28 10:35 | Outpatient (BNVA) | payer MEDICAID, SELFPAY | PROVIDERS: PCP Internal Medicine; Visit Provider Internal Medicine Cardiovascular Disease | DX: I13.0 Hypertensive heart and chronic kidney disease with heart failure and stage 1 through stage 4 chronic kidney disease, or unspecified chronic kidney disease (principal); E10.22 Type 1 diabetes mellitus with diabetic chronic kidney disease; N18.9 Chronic kidney disease, unspecified; I50.30 Unspecified diastolic (congestive) heart failure; Z79.4 Long term (current) use of insulin; I25.10 Atherosclerotic heart disease of native coronary artery without angina pectoris; Z86.73 Personal history of transient ischemic attack (TIA), and cerebral infarction without residual deficits; E27.40 Unspecified adrenocortical insufficiency; Z87.891 Personal history of nicotine dependence | CPT/HCPCS: 99214 ==

== ENCOUNTER → 2022-09-17 09:06 | Outpatient (BNVA) | payer MEDICAID, SELFPAY | PROVIDERS: PCP Internal Medicine; Visit Provider Podiatrist Foot & Ankle Surgery | DX: B35.1 Tinea unguium (principal); E10.65 Type 1 diabetes mellitus with hyperglycemia; E10.42 Type 1 diabetes mellitus with diabetic polyneuropathy; Z79.4 Long term (current) use of insulin; N18.9 Chronic kidney disease, unspecified; G62.9 Polyneuropathy, unspecified | CPT/HCPCS: 11721; 99203 ==

== ENCOUNTER → 2022-11-19 16:30 | Outpatient (BNVA) | payer MEDICAID, SELFPAY | PROVIDERS: PCP Internal Medicine; Visit Provider Podiatrist Foot & Ankle Surgery | DX: B35.1 Tinea unguium (principal); E10.65 Type 1 diabetes mellitus with hyperglycemia; N18.9 Chronic kidney disease, unspecified; G62.9 Polyneuropathy, unspecified; E10.42 Type 1 diabetes mellitus with diabetic polyneuropathy; E10.22 Type 1 diabetes mellitus with diabetic chronic kidney disease; Z79.4 Long term (current) use of insulin | CPT/HCPCS: 11721 ==

== ENCOUNTER → 2023-01-24 14:00 | Outpatient (BNVA) | payer MEDICAID, SELFPAY | PROVIDERS: PCP Internal Medicine; Visit Provider Internal Medicine Cardiovascular Disease | DX: I13.0 Hypertensive heart and chronic kidney disease with heart failure and stage 1 through stage 4 chronic kidney disease, or unspecified chronic kidney disease (principal); I50.30 Unspecified diastolic (congestive) heart failure; E10.22 Type 1 diabetes mellitus with diabetic chronic kidney disease; N18.9 Chronic kidney disease, unspecified; Z79.4 Long term (current) use of insulin; E10.65 Type 1 diabetes mellitus with hyperglycemia; I25.10 Atherosclerotic heart disease of native coronary artery without angina pectoris; E27.40 Unspecified adrenocortical insufficiency; Z86.73 Personal history of transient ischemic attack (TIA), and cerebral infarction without residual deficits; F17.210 Nicotine dependence, cigarettes, uncomplicated | CPT/HCPCS: 99214 ==

== ENCOUNTER → 2023-01-28 09:49 | Outpatient (BNVA) | payer MEDICAID, SELFPAY | PROVIDERS: PCP Internal Medicine; Visit Provider Podiatrist Foot & Ankle Surgery | DX: B35.1 Tinea unguium (principal); E10.65 Type 1 diabetes mellitus with hyperglycemia; N18.9 Chronic kidney disease, unspecified; G62.9 Polyneuropathy, unspecified; E10.42 Type 1 diabetes mellitus with diabetic polyneuropathy; E10.22 Type 1 diabetes mellitus with diabetic chronic kidney disease; Z79.4 Long term (current) use of insulin | CPT/HCPCS: 11721 ==

== ENCOUNTER 2023-02-13 10:40 | Outpatient (CLI) | payer MEDICAID, SELFPAY ==
--- NOTE | 2023-02-13 11:00 | USCV_ITS ---
Mariana Ace Age: 43 Gender: F : 1980 Exam Date: 02/13/2023 11:23 Ordering Phys: Angelic Ding MD ([email or web address]) Technologist: Susan Robb Exam Location: [facility] [place] Indication: CHF BP: 122 / 68 HR: 67 Rhythm: Sinus Technical Quality: Adequate MEASUREMENTS (Male / Female) Normal Values 2D ECHO LV Diastolic Diameter PLAX 4.4 cm 4.2 - 5.9 / 3.9 - 5.3 cm LV Systolic Diameter PLAX 3.1 cm IVS Diastolic Thickness 1.1 cm 0.6 - 1.0 / 0.6 - 0.9 cm IVS Systolic Thickness 1.3 cm LVPW Diastolic Thickness 1.1 cm 0.6 - 1.0 / 0.6 - 0.9 cm LVPW Systolic Thickness 2.1 cm LVOT Diameter 2.0 cm LV Ejection Fraction 2D Teich 56.1 % LV Ejection Fraction MOD 2C 49.1 % LV Ejection Fraction 2C AL 49.0 % LA Diameter 2.8 cm LA Width 2.5 cm LA Height 4.9 cm RA Width 2.9 cm RA Height 4.9 cm Aorta at Sinotubular Diameter 2.9 cm IVC Diameter 1.4 cm M-MODE Aortic Annulus Diameter 2.6 cm LA Ao Ratio MM 1.1 MV E Point Septal Separation 0.8 cm DOPPLER AV Peak Velocity 121.0 cm/s LVOT Peak Velocity 73.0 cm/s AV Area Cont Eq vti 2.1 cm squared AV Area Cont Eq pk 2.0 cm squared MV Peak Velocity 118.0 cm/s MV Area PHT 3.3 cm squared Mitral E to A Ratio 1.4 MV E' Velocity 60.0 cm/s Mitral E to MV E' Ratio 14.4 Mitral E to LV E' Lateral Ratio 14.5 Mitral E to LV E' Septal Ratio 14.4 TR Peak Velocity 206.0 cm/s TR Peak Gradient 17.0 mmHg Right Atrial Pressure 5.0 mmHg Pulmonary Artery Systolic Pressu 22.0 mmHg PV Peak Velocity 73.0 cm/s RV Acceleration Time 0.1 s RV Ejection Time 0.3 s RV AcT/ET 0.2 FINDINGS Left Ventricle Normal left ventricular size, systolic function and wall thickness, with no diagnostic regional wall motion abnormalities. Left ventricular ejection fraction is estimated at 55 %. Normal diastolic function. Right Ventricle Normal right ventricular size and systolic function. RVSP could not be calculated due to incomplete tricuspid regurgitation velocity profile. Right Atrium Normal right atrial size. Left Atrium Normal left atrial size. Mitral Valve Structurally normal mitral valve. No mitral valve stenosis. No mitral valve regurgitation. Aortic Valve Structurally normal trileaflet aortic valve. No aortic valve stenosis. No aortic valve regurgitation. Tricuspid Valve Structurally normal tricuspid valve. No significant tricuspid valve regurgitation. Pulmonic Valve Pulmonic valve not well visualized. Pericardium No pericardial effusion. Aorta Normal size aortic root and proximal ascending aorta. IVC Normal IVC dimension with >50% respiratory change of the inferior vena cava. CONCLUSIONS 1. This is a technically difficult study. 2. Normal left ventricular size, systolic function and wall thickness, with no diagnostic regional wall motion abnormalities. Left ventricular ejection fraction is estimated at 55 %. Normal diastolic function. 3. When compared to study dated 12/15/21, left ventricular systolic function may have improved. Angelic Ding MD (Electronically Signed) Final Date: 16 February 2023 16:41 S
== END 2023-02-13 10:41 | disposition home or self-care (01) ==
LOC: RAD 10:45
PROVIDERS: PCP Internal Medicine; Visit Provider Internal Medicine Cardiovascular Disease
DX: I50.30 Unspecified diastolic (congestive) heart failure (principal); I25.10 Atherosclerotic heart disease of native coronary artery without angina pectoris
CPT/HCPCS: 93306

== ENCOUNTER → 2023-02-20 11:57 | Outpatient (BNVA) | payer MEDICAID, SELFPAY | PROVIDERS: PCP Internal Medicine; Visit Provider Nurse Practitioner Women's Health | DX: N94.6 Dysmenorrhea, unspecified (principal); N83.292 Other ovarian cyst, left side; N83.291 Other ovarian cyst, right side | CPT/HCPCS: 76830 ==

== ENCOUNTER → 2023-02-25 16:17 | Outpatient (BNVA) | payer MEDICAID, SELFPAY | PROVIDERS: PCP Internal Medicine; Visit Provider Obstetrics & Gynecology | DX: Z12.4 Encounter for screening for malignant neoplasm of cervix | CPT/HCPCS: 87624; 88305 ==

== ENCOUNTER → 2023-04-08 10:59 | Outpatient (BNVA) | payer MEDICAID, SELFPAY | PROVIDERS: PCP Internal Medicine; Visit Provider Podiatrist Foot & Ankle Surgery | DX: B35.1 Tinea unguium (principal); E10.65 Type 1 diabetes mellitus with hyperglycemia; N18.9 Chronic kidney disease, unspecified; G62.9 Polyneuropathy, unspecified; Z79.4 Long term (current) use of insulin; E10.22 Type 1 diabetes mellitus with diabetic chronic kidney disease; E10.42 Type 1 diabetes mellitus with diabetic polyneuropathy | CPT/HCPCS: 11721 ==

== ENCOUNTER → 2023-06-10 08:06 | Outpatient (BNVA) | payer MEDICAID, SELFPAY | PROVIDERS: PCP Internal Medicine; Visit Provider Podiatrist Foot & Ankle Surgery | DX: E10.21 Type 1 diabetes mellitus with diabetic nephropathy (principal); B35.1 Tinea unguium; E10.65 Type 1 diabetes mellitus with hyperglycemia; N18.9 Chronic kidney disease, unspecified; G62.9 Polyneuropathy, unspecified; Z79.4 Long term (current) use of insulin | CPT/HCPCS: 99213 ==

== ENCOUNTER 2023-10-03 09:46 | Outpatient (CLI) | payer MEDICAID, SELFPAY ==
--- NOTE | 2023-10-03 09:58 | MM_ITS ---
WS: [id number] BILATERAL 3D TOMOSYNTHESIS DIGITAL DIAGNOSTIC MAMMOGRAPHY WITH CAD CLINICAL INFORMATION: BR LUMP HISTORY: RIGHT breast lump COMPARISON: 01/19/2010 RIGHT diagnostic mammogram and ultrasound. Ultrasound 2016. TECHNIQUE: Bilateral CC, MLO, and ML views. FINDINGS: The breasts are composed of heterogeneous fibroglandular density, which can limit the detection of sm all underlying mass lesions. Incidental punctate and lucent centered calcifications. Palpable markers upper outer RIGHT breast with dense underlying parenchymal tissue. Ultrasound is pending. Unremarkable LEFT breast. ULTRASOUND BREAST RIGHT TECHNIQUE: Ultrasound right breast focused area of concern. CLINICAL INFORMATION: BR LUMP FINDINGS: Ultrasound RIGHT breast in the areas of concern 11 o'clock position 5 cm from the nipple. Small simpl e cyst in this area measuring 6 x 3 mm. No other suspicious findings in the areas of concern. Otherwi se normal underlying parenchymal tissue. Findings are benign. Recommend return to annual screening ma mmography. IMPRESSION: MM/[place] [id number] BI-RADS: 2-Benign FOLLOW UP: 1 Year Follow-up Recommend return to annual screening mammography.
== END 2023-10-03 09:47 | disposition home or self-care (01) ==
LOC: RAD 09:46
PROVIDERS: PCP Internal Medicine; Visit Provider Family Medicine
DX: N60.01 Solitary cyst of right breast (principal)
CPT/HCPCS: 76642; 77062; G0279

== ENCOUNTER → 2023-10-10 10:10 | Outpatient (BNVA) | payer MEDICAID, SELFPAY | PROVIDERS: PCP Internal Medicine; Visit Provider Internal Medicine Cardiovascular Disease | DX: I25.10 Atherosclerotic heart disease of native coronary artery without angina pectoris (principal); I13.0 Hypertensive heart and chronic kidney disease with heart failure and stage 1 through stage 4 chronic kidney disease, or unspecified chronic kidney disease; E10.22 Type 1 diabetes mellitus with diabetic chronic kidney disease; N18.32 Chronic kidney disease, stage 3b; I50.32 Chronic diastolic (congestive) heart failure; E10.65 Type 1 diabetes mellitus with hyperglycemia; E78.5 Hyperlipidemia, unspecified; Z86.73 Personal history of transient ischemic attack (TIA), and cerebral infarction without residual deficits; Z87.891 Personal history of nicotine dependence; Z79.4 Long term (current) use of insulin | CPT/HCPCS: 99215 ==

== ENCOUNTER → 2023-12-17 12:17 | Outpatient (BNVA) | payer MEDICAID, SELFPAY | PROVIDERS: PCP Internal Medicine; Visit Provider Obstetrics & Gynecology | DX: Z30.431 Encounter for routine checking of intrauterine contraceptive device (principal) | CPT/HCPCS: 76830 ==

== ENCOUNTER 2024-01-09 09:28 | Outpatient (CLI) | payer MEDICAID, SELFPAY ==
--- NOTE | 2024-01-09 09:47 | XRR_ITS ---
PROCEDURE INFORMATION: Exam: XR Abdomen Exam date and time: 01/09/2024 9:50 AM Age: 43 years old Clinical indication: Device placement; Non-vascular device; Prior surgery; Surgery date: 6+ months; Surgery type: C section; Patient HX: Missing iud; Additional info: Z30.431 - encounter for routine checking of intrauterine . . . No history of recent trauma or surgery is provided. TECHNIQUE: Imaging protocol: Radiologic exam of the abdomen. 2image(s) are provided. Views: Frontal supine view of the abdomen. 1 View. COMPARISON: 1. CT kidney stone [id number] 12/08/2021 8:36 AM 2. US transvaginal [id number] 12/17/2023 12:22 PM FINDINGS: Tubes, catheters and devices: There are adnexal, tubal type clips present. There is an IUD overlying the pelvis. Correlate with the dedicated procedure report for placement. Lungs: No lobar consolidation is appreciated. Diaphragm: There is slight asymmetric right hemidiaphragm elevation. Gastrointestinal tract: The bowel gas pattern appears nonobstructive. There is some moderate stool content present. Intraperitoneal space: No layering free air is appreciated. Bones/joints: Osseous alignment is maintained. No interval displaced fracture or dislocation is appreciated. There are postsurgical changes of the left hip demonstrated. Soft tissues: No radiopaque foreign body or subcutaneous emphysema is appreciated. There are upper abdominal surgical clips present on the right. Other findings: No other significant interval changes are appreciated. XR/XR KUB [id number] IMPRESSION: 1. There is an IUD overlying the central pelvis. 2. There is some moderate stool content suggestive of constipation.
== END 2024-01-09 09:29 | disposition home or self-care (01) ==
PROVIDERS: PCP Internal Medicine; Visit Provider Obstetrics & Gynecology
DX: Z30.431 Encounter for routine checking of intrauterine contraceptive device (principal); Z97.5 Presence of (intrauterine) contraceptive device
CPT/HCPCS: 74018

== ENCOUNTER → 2024-04-08 10:07 | Outpatient (BNVA) | payer MEDICAID, SELFPAY | PROVIDERS: PCP Internal Medicine; Visit Provider Nurse Practitioner Family | DX: I13.0 Hypertensive heart and chronic kidney disease with heart failure and stage 1 through stage 4 chronic kidney disease, or unspecified chronic kidney disease (principal); E11.22 Type 2 diabetes mellitus with diabetic chronic kidney disease; N18.9 Chronic kidney disease, unspecified; Z87.891 Personal history of nicotine dependence; Z79.4 Long term (current) use of insulin; I50.32 Chronic diastolic (congestive) heart failure; I25.10 Atherosclerotic heart disease of native coronary artery without angina pectoris | CPT/HCPCS: 99214 ==

== ENCOUNTER → 2024-06-22 09:49 | Outpatient (BNVA) | payer MEDICAID, SELFPAY | PROVIDERS: PCP Internal Medicine; Visit Provider Surgery | DX: Z01.818 Encounter for other preprocedural examination (principal); K92.2 Gastrointestinal hemorrhage, unspecified; D50.9 Iron deficiency anemia, unspecified; K21.9 Gastro-esophageal reflux disease without esophagitis; R10.9 Unspecified abdominal pain; Z86.19 Personal history of other infectious and parasitic diseases | CPT/HCPCS: 99204 ==

== ENCOUNTER → 2024-07-02 08:08 | Outpatient (BNVA) | payer MEDICAID, SELFPAY | PROVIDERS: PCP Internal Medicine; Visit Provider Podiatrist Foot & Ankle Surgery | DX: E10.21 Type 1 diabetes mellitus with diabetic nephropathy (principal); B35.1 Tinea unguium; E10.65 Type 1 diabetes mellitus with hyperglycemia; N18.32 Chronic kidney disease, stage 3b; G62.9 Polyneuropathy, unspecified; Z79.4 Long term (current) use of insulin | CPT/HCPCS: 11721; 99213 ==

== ENCOUNTER → 2024-07-17 10:19 | Outpatient (BNVA) | payer MEDICAID, SELFPAY | PROVIDERS: PCP Internal Medicine; Visit Provider Family Medicine | DX: I10 Essential (primary) hypertension (principal); E11.21 Type 2 diabetes mellitus with diabetic nephropathy | CPT/HCPCS: 80053; 85025; 93005 ==

== ENCOUNTER 2024-07-22 06:44 | Day surgery (SDC) | payer MEDICAID, SELFPAY ==
[2024-07-22 07:11] VITALS: BP 166/88; PULSE 88; RESP 18; TEMP 36.3; O2SAT 96; BMI 25.8
--- NOTE | 2024-07-22 07:13 | ANES.PREANE2 ---
Pre-Anesthetic Assessment Height/Weight: Height 5 ft 3 in Preop Diagnosis: GERD, abdominal pain Operation Date: 07/22/24 08:00 Proposed Procedures p EGD 25933, 76960, G0105, K92.2, K21.9(Not Applicable) - Mirza Hernandez DO s Colonoscopy(Not Applicable) - Mirza Hernandez DO Was Beta Jane taken within 24 hours: Yes Was Clonidine taken within 24 hours: N/A Social No alcohol and No tobacco Exam alert, oriented x 3, clear to auscultation bilaterally and regular rate & rhythm Airway Submandibular: within normal limits Cervical ROM: within normal limits Mallampati: Class II Comments: Comments: Edentulous Anesthetic Plan ASA status: 3 Anesthesia: MAC Other: No prior issues with anesthesia Completed bowel prep Patient comes from a facility, currently in a wheelchair. States she ambulates occasionally with a walker History of hypertension on amlodipine and metoprolol GERD on Protonix Diabetes on insulin. Will check preop blood sugar Patient has an IUD and has not had a period in over a year CKD, no dialysis. Labs 07/17/2024 reviewed acceptable for procedure today Plan for MAC anesthetic Medications/Allergies Home Medications Medication Instructions Recorded Confirmed Last Taken Type propylene glycol 0.6 % eye drops 1 drop ophthalmic (eye) Q12H PRN 07/03/19 07/20/24 07/21/24 23:00 History (Systane Balance) Dry Eyes magnesium hydroxide 400 mg/5 mL 30 ml PO DAILY PRN Constipation 08/16/21 07/20/24 07/21/24 23:00 History oral suspension (Milk of Magnesia) sennosides 8.6 mg-docusate sodium 1 tab-cap PO Q12H PRN Constipation 08/16/21 07/20/24 07/21/24 23:00 History 50 mg tablet (Senna-S) acetaminophen 325 mg tablet 650 mg PO Q6H PRN Pain 12/04/21 07/20/24 07/21/24 23:00 History (Tylenol) aspirin 81 mg tablet,delayed 81 mg PO DAILY@08 12/04/21 07/20/24 07/21/24 23:00 History release bisacodyl 10 mg rectal suppository 10 mg WI DAILY PRN Constipation 12/04/21 07/20/24 07/21/24 23:00 History menthol 4 % topical gel (Biofreeze 1 applic topical Q4H PRN Pain 12/04/21 07/20/24 07/21/24 23:00 History (menthol)) polyethylene glycol 3350 17 gram 17 g PO DAILY PRN Constipation 12/04/21 07/20/24 07/21/24 23:00 History oral powder packet (Miralax) sodium phosphates 19 gram-7 118 ml WI DAILY PRN Constipation 12/04/21 07/20/24 07/21/24 23:00 History gram/118 mL enema (Enema) calcitriol 0.25 mcg capsule 0.25 mcg PO DAILY 01/24/23 07/20/24 07/21/24 23:00 History furosemide 40 mg tablet 60 mg PO DAILY@0800 01/24/23 07/20/24 07/21/24 23:00 History nitroglycerin 0.4 mg sublingual 0.4 mg sublingual Q5M PRN Chest 01/24/23 07/20/24 07/21/24 23:00 History tablet (Nitrostat) Pain levonorgestrel 21 mcg/24 hr (up to intrauterine 02/25/24 07/02/24 07/21/24 23:00 History 8 years) 52 mg intrauterine device (Mirena) metoprolol tartrate 25 mg tablet 12.5 mg PO BID 04/08/24 07/20/24 07/21/24 23:00 History amlodipine 5 mg tablet 10 mg PO DAILY 04/20/24 07/20/24 07/21/24 23:00 History pantoprazole 40 mg tablet,delayed 40 mg PO BID 6 weeks #84 tabs 06/22/24 07/20/24 07/21/24 23:00 Rx release (Protonix) amitriptyline 50 mg tablet 50 mg PO DAILY 07/17/24 07/20/24 07/21/24 23:00 History gabapentin 100 mg capsule 100 mg PO TID 07/17/24 07/20/24 07/21/24 23:00 History insulin aspart U-100 100 unit/mL See Rx Instructions .Route .COMPLEX 07/17/24 07/20/24 07/21/24 23:00 History (3 mL) subcutaneous pen (Novolog FlexPen U-100 Insulin aspart) insulin glargine 100 unit/mL 12 unit SUBCUT QAM 07/17/24 07/20/24 07/21/24 23:00 History subcutaneous solution (Lantus U-100 Insulin) ondansetron 4 mg disintegrating 4 mg PO Q8H PRN Nausea And Vomiting 07/17/24 07/20/24 07/21/24 23:00 History tablet Allergies Allergy/AdvReac Type Severity Reaction Status Date / Time sulfamethoxazole Allergy Rash, Verified 07/22/24 06:57 [From Bactrim] wheezing trimethoprim [From Bactrim] Allergy Rash, Verified 07/22/24 06:57 wheezing PFSH Anesthesia Medical History History of Clostridioides difficile colitis Diastolic heart failure Diabetic nephropathy Adrenal insufficiency Hydronephrosis Cerebellar cerebrovascular accident (CVA) without late effect Chronic kidney disease Anemia Trichotillomania Homeless Decubitus ulcers C. difficile colitis Severe protein-calorie malnutrition Type 1 diabetes mellitus Perinephric abscess History of perinephric and retroperitoneal abscess with yeast in 2018, required percutaneous drainage and had complicated hospital course with respiratory failure, gram-negative pneumonia, thoracentesis, BiPAP therapy requirement, intolerance of oral intake, PEG tube placement, intolerance of tube feeds Aftercare following surgery of the genitourinary system Patient is a status post diagnostic laparoscopy with lysis of adhesions and appendectomy 2 weeks ago. No complications. Patient was counseled regarding pathology report showing acute appendicitis. Follow-up in 4 weeks Secondary amenorrhea 39-year-old female with secondary amenorrhea. Progestin challenge test described Patient referred to the progestin challenge test she had a withdrawal bleeding from 05/07/2019 to 05/13/2019. Breast lump on right side at 9 o'clock position Patient denies medical problems MRSA (methicillin resistant staph aureus) culture positive Adult failure to thrive Depression Generalized weakness Surgical History History of tubal ligation 2001 deliv NOS-unsp 1999 S/P appendectomy History of cholecystectomy 2011 S/P laparoscopy 05/20/2019- Diagnostic Laparoscopy, Lysis of Adhesions performed by Dr. Shah at [facility] Appendectomy performed by Dr. Robledo on 05/20/2019 Family History Grandmother Diabetes MATERNAL Cancer paternal Grandfather Heart disease maternal Cancer paternal Family/Other Breast cancer Paternal Aunt Social History Smoking and tobacco/nicotine status: never used tobacco/nicotine Alcohol intake: never Data Anesthesia Cardiac Studies: Echocardiogram 02/13/23 Echocardiogram Limited Views 12/04/21 Sestamibi Stress Test (Cardiology) 12/12/21
[2024-07-22] MEDS: sodium chloride 0.9% 500 ML 15 ML IV (07:35)
[2024-07-22 07:38] LABS: Glucose Point of Care 73 mg/dL (70-110)
--- NOTE | 2024-07-22 08:06 | W.PM.OPSUD ---
Surgery/Procedure H&P Update DATE OF PROCEDURE: July 22, 2024 DATE H&P PERFORMED: 06/22/24 H&P UPDATE INFORMATION: I have reviewed H&P completed within last 30 days, I have examined patient prior to procedure and No changes to prior documentation PREOP DIAGNOSIS: GERD, abdominal pain PLANNED PROCEDURE: Operation Date: 07/22/24 08:00 Proposed Procedures p EGD 24560, 31822, G0105, K92.2, K21.9(Not Applicable) - DO kaycee Ly Colonoscopy(Not Applicable) - Mirza Hernandez DO
[2024-07-22 08:46] VITALS: BP 125/72; PULSE 88; RESP 17; TEMP 36.6; O2SAT 98
--- NOTE | 2024-07-22 08:49 | ANE.PACU2 ---
Inpatient post-anesthesia follow up: Airway intact: Yes Vital signs: Temperature 97.3 F Pulse Rate 88 Respiratory Rate 18 Blood Pressure 166/88 Pulse Oximetry 96 Oxygen Delivery Me thod Room Air Oxygen Flow Rate Fraction of Inspir ed Oxygen Hydration adequate: Yes Nausea and vomiting: No Pain level: 1 Mental status: Baseline
[2024-07-22 08:51] VITALS: BP 137/74; PULSE 87; RESP 18; O2SAT 100
[2024-07-22 09:01] VITALS: BP 165/85; PULSE 93; RESP 18; O2SAT 100
[2024-07-22 09:06] LABS: Glucose Point of Care 83 mg/dL (70-110)
[2024-07-22 09:24] LABS: C.Diff PCR (Lab) NEGATIVE (Negative)
== END 2024-07-22 09:16 | disposition home or self-care (01) ==
PROVIDERS: PCP Internal Medicine; Visit Provider Surgery
PROC: 0DJ08ZZ Inspection of Upper Intestinal Tract, Via Natural or Artificial Opening Endoscopic (ICD-10-PCS; principal; 2024-07-22 08:00)
PROC: 0DJD8ZZ Inspection of Lower Intestinal Tract, Via Natural or Artificial Opening Endoscopic (ICD-10-PCS; CPT 45378; 2024-07-22 08:00)
DX: K92.2 Gastrointestinal hemorrhage, unspecified (principal); K21.00 Gastro-esophageal reflux disease with esophagitis, without bleeding; D12.5 Benign neoplasm of sigmoid colon; E11.22 Type 2 diabetes mellitus with diabetic chronic kidney disease; N18.9 Chronic kidney disease, unspecified; Z79.4 Long term (current) use of insulin; Z86.14 Personal history of Methicillin resistant Staphylococcus aureus infection
CPT/HCPCS: 36416; 43239; 45380; 45385; 82274; 82962; 83630; 87045; 87177; 87209; 87427; 87449; 87493; 88305; 88342; J2704; J7040

== ENCOUNTER → 2024-08-07 09:14 | Outpatient (BNVA) | payer MEDICAID, SELFPAY | PROVIDERS: PCP Internal Medicine; Visit Provider Surgery | DX: Z09 Encounter for follow-up examination after completed treatment for conditions other than malignant neoplasm (principal); D37.4 Neoplasm of uncertain behavior of colon | CPT/HCPCS: 99214 ==

== ENCOUNTER → 2025-01-14 08:45 | Outpatient (BNVA) | payer MEDICAID, SELFPAY | PROVIDERS: PCP Internal Medicine; Visit Provider Podiatrist Foot & Ankle Surgery | DX: E10.42 Type 1 diabetes mellitus with diabetic polyneuropathy (principal); B35.1 Tinea unguium; E10.21 Type 1 diabetes mellitus with diabetic nephropathy; E10.65 Type 1 diabetes mellitus with hyperglycemia; N18.32 Chronic kidney disease, stage 3b; G62.9 Polyneuropathy, unspecified; Z79.4 Long term (current) use of insulin | CPT/HCPCS: 11721; 99213 ==

== ENCOUNTER → 2025-04-06 14:53 | Outpatient (BNVA) | payer MEDICAID, SELFPAY | PROVIDERS: PCP Internal Medicine; Visit Provider Internal Medicine Cardiovascular Disease | DX: I25.10 Atherosclerotic heart disease of native coronary artery without angina pectoris (principal); I13.0 Hypertensive heart and chronic kidney disease with heart failure and stage 1 through stage 4 chronic kidney disease, or unspecified chronic kidney disease; E10.22 Type 1 diabetes mellitus with diabetic chronic kidney disease; N18.9 Chronic kidney disease, unspecified; I50.30 Unspecified diastolic (congestive) heart failure; Z79.4 Long term (current) use of insulin; E78.5 Hyperlipidemia, unspecified; Z86.73 Personal history of transient ischemic attack (TIA), and cerebral infarction without residual deficits; Z87.891 Personal history of nicotine dependence; R07.9 Chest pain, unspecified; R06.02 Shortness of breath | CPT/HCPCS: 36415; 80048; 83880; 93005; 99214 ==